=== PATIENT | male | born 1975 | race Caucasian/White ===

== ENCOUNTER 2018-04-04 20:19 | Emergency (ER) | payer BC ==
[2018-04-04] MEDS ORDERED: NA CHLORIDE 0.9% 1,000 ML ONE (21:30)
[2018-04-04 21:35] LABS: Urine Blood 3+ (NEG); Urine Glucose NEGATIVE (NEG); Urine Protein 2+ (NEG); Urine Specific Gravity >1.030 (1.005-1.030); Urine pH 5.5 (5.0-7.0)
[2018-04-04 21:51] LABS: Absolute Lymphocytes (CBC) 3.3 K/uL (0.7-4.9); Absolute Monocytes 0.8 K/uL (0.1-1.3); Absolute Neutrophil 5.5 K/uL (1.8-8.0); Basophils % 1.2 % (0-1.3); Eosinophils % 3.7 % (0-4.4); Hematocrit 40.3 % (39.6-49.0); Lymphocytes % 32.8 % (15.3-44.8); Monocytes % 8.1 % (3.3-12.3); RBC Red Blood Cell Count 4.53 M/uL (4.33-5.43)
[2018-04-04 22:10] LABS: ALT/SGPT 40 U/L (12-78); AST/SGOT 19 U/L (15-37); Albumin 3.9 g/dL (3.4-5.0); Alkaline Phosphatase 68 U/L (45-117); Amylase Level 45 U/L (25-115); BUN Blood Urea Nitrogen 16 mg/dL (7-18); Bicarbonate 28 mmol/L (21-32); Bilirubin Direct < 0.1 mg/dL (0-0.2); Bilirubin Total 0.4 mg/dL (0.2-1.0); Glucose Level 125 mg/dL (74-106); Lipase 159 U/L (73-393); Potassium 3.6 mmol/L (3.5-5.1); Protein, Total 7.7 g/dL (6.4-8.2); Sodium Level 143 mmol/L (136-145)
[2018-04-04 22:13] LABS: Urine Bacteria <20 /HPF (NONE SEEN); Urine RBC >50 /HPF (NONE SEEN)
[2018-04-04 22:14] LABS: Urine Culture Reflex Order NOT NEEDED; Urine Mucus 1+ /HPF (NONE SEEN)
--- NOTE | 2018-04-05 01:24 | ER ---
Nurse's Notes [facility] Name: Xiomara Haro Age: 43 yrs Sex: Male : 1975 Arrival Date: 04/04/2018 Time: 20:20 Bed 15 Private MD: Diagnosis: Calculus of ureter-Right;Right Inguinal Swelling Presentation: 04/04 20:27 Presenting complaint: Patient states: Reports dark, foul smelling urine, left lower aj1 back pain that radiated to the abdomen for the past week. States that he has a history of kidney stones, but this pain feels different. Denies fever. Transition of care: patient was not received from another setting of care. Onset of symptoms was March 28, 2018. Risk Assessment: Do you want to hurt yourself or someone else? Patient reports no desire to harm self or others. Initial Sepsis Screen: Does the patient meet any 2 criteria? Systolic BP < 90 mmHg. No. Patient's initial sepsis screen is negative. Does the patient have a suspected source of infection? No. Patient's initial sepsis screen is negative. Care prior to arrival: None. 20:27 Method Of Arrival: Ambulatory aj1 20:27 Acuity: DULCE 3 aj1 Triage Assessment: 20:31 General: Appears in no apparent distress. comfortable, Behavior is calm, cooperative, aj1 appropriate for age. Pain: Complains of pain in left low back Pain radiates to left lower quadrant Pain currently is 5 out of 10 on a pain scale. at worst was 9 out of 10 on a pain scale. Neuro: Level of Consciousness is awake, alert, obeys commands. Cardiovascular: Patient's skin is warm and dry. Respiratory: Airway is patent Respiratory effort is even, unlabored, Respiratory pattern is regular, symmetrical. GI: Abdomen is non-distended, Patient currently denies diarrhea, nausea, vomiting. : Reports dark, foul smelling urine Denies burning with urination, urinary frequency. Derm: Skin is pink, warm \\T\\ dry. normal. Musculoskeletal: Circulation, motion, and sensation intact. Historical: - Allergies: 20:31 Codeine; aj1 - Home Meds: 20:31 aspirin 81 mg Oral chew 1 tab once daily [Active]; famotidine 20 mg Oral tab 1 tab once aj1 daily [Active]; losartan 25 mg Oral tab 1 tab once daily [Active]; rosuvastatin 20 mg oral tab 1 tab once daily [Active]; - PMHx: 20:31 "abdominal issues"; CAD; GERD; Myocardial infarction; Sepsis; systolic heart failure; aj1 Vertigo; - PSHx: 20:31 Hernia repair; heart cath; aj1 - Immunization history:: Flu vaccine is not up to date. - Social history:: Smoking status: Patient/guardian denies using tobacco. - Ebola Screening: : Patient denies travel to an Ebola-affected area in the 21 days before illness onset. Screenin:47 Abuse screen: Denies threats or abuse. Denies injuries from another. Nutritional bs1 screening: No deficits noted. Tuberculosis screening: No symptoms or risk factors identified. Fall Risk None identified. Assessment: 21:40 General: Appears in no apparent distress. uncomfortable, Behavior is calm, cooperative, bs1 appropriate for age. 21:41 Pain: Complains of pain in right lower back, right flank/right lower abdomen Pain does bs1 not radiate. Neuro: Level of Consciousness is awake, alert, obeys commands, Oriented to person, place, time, situation, Appropriate for age. Cardiovascular: Denies chest pain, shortness of breath, Heart tones S1 S2 present Capillary refill < 3 seconds Patient's skin is warm and dry. Respiratory: Airway is patent Trachea midline Respiratory effort is even, unlabored, Respiratory pattern is regular, symmetrical, Breath sounds are clear bilaterally. GI: Abdomen is round Bowel sounds present X 4 quads. Reports lower abdominal pain. : Reports foul smelling urine. EENT: No signs and/or symptoms were reported regarding the EENT system. Derm: Skin is intact, Skin is pink, warm \\T\\ dry. normal. Musculoskeletal: Circulation, motion, and sensation intact. Capillary refill < 3 seconds, Range of motion: intact in all extremities. 23:00 Reassessment: No changes from previously documented assessment. Patient and/or family bs1 updated on plan of care and expected duration. Pain level reassessed. Patient is alert, oriented x 3, equal unlabored respirations, skin warm/dry/pink. Informed patient of POC/pending CT scan. 04/05 00:00 Reassessment: Patient appears in no apparent distress at this time. Patient and/or bs1 family updated on plan of care and expected duration. Pain level reassessed. Patient is alert, oriented x 3, equal unlabored respirations, skin warm/dry/pink. 01:15 Reassessment: Patient staying to finish IV magnesium. bs1 02:45 Reassessment: Patient appears in no apparent distress at this time. Patient and/or bs1 family updated on plan of care and expected duration. Pain level reassessed. Patient is alert, oriented x 3, equal unlabored respirations, skin warm/dry/pink. Patient denies pain at this time. Patient states feeling better. Vital Signs: 04/04 20:31 BP 119 / 85; Pulse 98; Resp 18; Temp 98.0; Pulse Ox 98% on R/A; Weight 84.37 kg (R); aj1 Height 5 ft. 10 in. (177.80 cm) (R); Pain 5/10; 21:30 BP 121 / 88; Pulse 86; Resp 16 S; Pulse Ox 97% on R/A; bs1 22:30 BP 127 / 87; Pulse 80; Resp 16 S; Pulse Ox 99% on R/A; bs1 23:30 BP 133 / 92; Pulse 77; Resp 15 S; Pulse Ox 100% on R/A; bs1 04/05 00:30 BP 120 / 85; Pulse 70; Resp 16 S; Pulse Ox 98% on R/A; bs1 01:30 BP 127 / 94; Pulse 69; Resp 17; Pulse Ox 99% on R/A; bs1 02:30 BP 125 / 97; Pulse 76; Resp 16; Temp 98(O); Pulse Ox 99% ; Pain 0/10; bs1 04/04 20:31 Body Mass Index 26.69 (84.37 kg, 177.80 cm) aj1 ED Course: 04/04 20:20 Patient arrived in ED. es 20:29 Triage completed. aj1 20:31 Arm band placed on Patient placed in an exam room. aj1 20:54 Naseem Stark PA is PHCP. cp 20:54 Naseem Xie MD is Attending Physician. cp 21:14 Sandy Mcbride, BITA is Primary Nurse. bs1 21:47 Patient has correct armband on for positive identification. Bed in low position. Call bs1 light in reach. Side rails up X 1. Pulse ox on. NIBP on. 23:31 CT Abd/Pelvis - W/Contrast In Process Unspecified. EDNY 04/05 00:11 CT completed. Patient tolerated procedure well. Patient moved to CT via wheelchair. Patient moved back from CT. 01:20 Dell Ricketts MD is Referral Physician. cp 01:21 David Vickers MD is Referral Physician. cp 01:21 Referral Physician role handed off by Dell Ricketts MD cp 01:21 Dell Ricketts MD is Referral Physician. cp 01:22 Referral Physician role handed off by David Vickers MD cp 01:22 David Vickers MD is Referral Physician. cp 02:46 No provider procedures requiring assistance completed. IV discontinued, bleeding bs1 controlled, No redness/swelling at site. Pressure dressing applied. Administered Medications: 04/04 21:40 Drug: NS 0.9% 1000 ml Route: IV; Rate: 1 bolus; Site: right antecubital; bs1 04/05 02:49 Follow up: IV Status: Completed infusion bs1 01:36 Drug: Flomax 0.4 mg Route: PO; bs1 02:49 Follow up: Response: No adverse reaction bs1 01:36 Drug: TORadol 30 mg Route: IVP; Site: right antecubital; bs1 02:49 Follow up: Response: No adverse reaction bs1 01:36 Drug: Rocephin 1 grams Route: IV; Rate: bolus; Site: right antecubital; bs1 02:48 Follow up: IV Status: Completed infusion bs1 01:37 Drug: Magnesium Sulfate 1 grams Route: IVPB; Infused Over: 1 hrs; Site: right bs1 antecubital; 02:49 Follow up: IV Status: Completed infusion bs1 Outcome: 01:23 Discharge ordered by . cp 02:47 Discharged to home ambulatory, with significant other. bs1 02:47 Condition: stable 02:47 Discharge instructions given to patient, Instructed on discharge instructions, follow up and referral plans. medication usage, Demonstrated understanding of instructions, follow-up care, medications, Prescriptions given X 4. 02:52 Patient left the ED. bs1 Signatures: Dispatcher [employer] EDAle Connell RN RN aj1 Jessy Donato Ervin eh Page, Corey, PA PA Sandy Gonzales RN RN bs1 Corrections: (The following items were deleted from the chart) 04/04 21:47 21:40 General: Appears bs1 bs1
--- NOTE | 2018-04-05 01:24 | EDPHYS ---
Physician Documentation [facility] Name: Xiomara Haro Age: 43 yrs Sex: Male : 1975 Arrival Date: 04/04/2018 Time: 20:20 Bed 15 Private MD: ED Physician Naseem Xie HPI: 04/04 21:29 This 43 yrs old Male presents to ER via Ambulatory with complaints of cp POSSIBLE KIDNEY INFECTGION. 21:29 The patient presents with pain that is acute, with no known mechanism of injury. The cp symptoms are located in the low back, left worse than right. 21:29 Onset: The symptoms/episode began/occurred 1 week(s) ago. The pain radiates to the cp abdomen. Associated signs and symptoms: Pertinent positives: right inguinal swelling, Pertinent negatives: chest pain, fever, headache, incontinence, numbness, tingling, urinary retention, weakness. Severity of symptoms: in the emergency department the symptoms are unchanged, despite home interventions. 21:29 Patient reports history of hernia repair and has noticed increased swelling to right cp inguinal area recently. Historical: - Allergies: 20:31 Codeine; aj1 - Home Meds: 20:31 aspirin 81 mg Oral chew 1 tab once daily [Active]; famotidine 20 mg Oral tab 1 tab once aj1 daily [Active]; losartan 25 mg Oral tab 1 tab once daily [Active]; rosuvastatin 20 mg oral tab 1 tab once daily [Active]; - PMHx: 20:31 "abdominal issues"; CAD; GERD; Myocardial infarction; Sepsis; systolic heart failure; aj1 Vertigo; - PSHx: 20:31 Hernia repair; heart cath; aj1 - Immunization history:: Flu vaccine is not up to date. - Social history:: Smoking status: Patient/guardian denies using tobacco. - Ebola Screening: : Patient denies travel to an Ebola-affected area in the 21 days before illness onset. ROS: 21:29 Constitutional: Negative for body aches, chills, fever, poor PO intake. cp 21:29 Respiratory: Negative for cough, shortness of breath, wheezing. 21:29 Abdomen/GI: Positive for abdominal pain, of the right inguinal, swelling, tenderness, Negative for vomiting, diarrhea, constipation, anorexia. 21:29 : Positive for flank pain. 21:29 Skin: Negative for cellulitis, rash. 21:29 All other systems are negative. Exam: 21:30 Constitutional: The patient appears in no acute distress, alert, awake, non-toxic, well cp developed, well nourished. 21:30 Head/Face: Normocephalic, atraumatic. cp 21:30 Eyes: Periorbital structures: appear normal, Conjunctiva: normal, no exudate, no injection, Sclera: no appreciated abnormality, Lids and lashes: appear normal, bilaterally. 21:30 ENT: External ear(s): are unremarkable, Nose: is normal, Mouth: Lips: moist, Oral mucosa: pink and intact, moist, Posterior pharynx: is normal, airway is patent, no erythema, no exudate. 21:30 Chest/axilla: Inspection: normal, Palpation: is normal, no crepitus, no tenderness. 21:30 Cardiovascular: Rate: normal, Rhythm: regular, Edema: is not appreciated, JVD: is not appreciated. 21:30 Respiratory: the patient does not display signs of respiratory distress, Respirations: normal, no use of accessory muscles, no retractions, no splinting, no tachypnea, labored breathing, is not present, Breath sounds: are clear throughout, no decreased breath sounds, no stridor, no wheezing. 21:30 Abdomen/GI: Inspection: abdomen appears normal, Bowel sounds: active, all quadrants, Palpation: soft, in all quadrants, mild abdominal tenderness, in the right lower quadrant and left lower quadrant, involuntary guarding, is not appreciated, right inguinal area swelling and mild tenderness. 21:30 Back: ROM is normal, CVA tenderness, that is mild, vertebral tenderness, is not appreciated. 21:30 Skin: cellulitis, is not appreciated, no rash present. 21:30 Neuro: Orientation: to person, place \\T\\ time. Mentation: lucid, able to follow commands, Cerebellar function: is grossly normal, Motor: moves all fours, strength is normal, Sensation: no obvious gross deficits, Gait: is steady. Vital Signs: 20:31 BP 119 / 85; Pulse 98; Resp 18; Temp 98.0; Pulse Ox 98% on R/A; Weight 84.37 kg (R); aj1 Height 5 ft. 10 in. (177.80 cm) (R); Pain 5/10; 21:30 BP 121 / 88; Pulse 86; Resp 16 S; Pulse Ox 97% on R/A; bs1 22:30 BP 127 / 87; Pulse 80; Resp 16 S; Pulse Ox 99% on R/A; bs1 23:30 BP 133 / 92; Pulse 77; Resp 15 S; Pulse Ox 100% on R/A; bs1 04/05 00:30 BP 120 / 85; Pulse 70; Resp 16 S; Pulse Ox 98% on R/A; bs1 01:30 BP 127 / 94; Pulse 69; Resp 17; Pulse Ox 99% on R/A; bs1 02:30 BP 125 / 97; Pulse 76; Resp 16; Temp 98(O); Pulse Ox 99% ; Pain 0/10; bs1 04/04 20:31 Body Mass Index 26.69 (84.37 kg, 177.80 cm) aj1 MDM: 04/04 20:55 Patient medically screened. cp 23:00 Differential diagnosis: Cholelithiasis chronic back pain, Pyelonephritis ruptured disc, cp Ureterolithiasis. 04/05 01:22 Data reviewed: vital signs, nurses notes, lab test result(s), radiologic studies, CT cp scan. 01:22 Counseling: I had a detailed discussion with the patient and/or guardian regarding: the cp historical points, exam findings, and any diagnostic results supporting the discharge/admit diagnosis, lab results, radiology results, to return to the emergency department if symptoms worsen or persist or if there are any questions or concerns that arise at home. Response to treatment: the patient's symptoms have markedly improved after treatment, and as a result, I will discharge patient. 04/04 21:15 Order name: Amylase, Serum; Complete Time: 22:33 cp 04/04 21:15 Order name: Basic Metabolic Panel; Complete Time: 22:33 cp 04/04 22:33 Interpretation: Normal except: GLUC 125; GFR 72. cp 04/04 21:15 Order name: CBC with Diff; Complete Time: 22:33 cp 04/04 21:15 Order name: Creatinine for Radiology; Complete Time: 22:33 cp 04/04 21:15 Order name: Hepatic Function; Complete Time: 22:33 cp 04/04 21:15 Order name: Lipase; Complete Time: 22:33 cp 04/04 21:15 Order name: Urine Microscopic Only; Complete Time: 22:33 cp 04/04 21:15 Order name: CT Abd/Pelvis - W/Contrast; Complete Time: 02:02 cp 04/04 21:26 Order name: Urine Dipstick--Ancillary (enter results); Complete Time: 22:33 rg2 04/04 21:15 Order name: IV Saline Lock; Complete Time: 21:40 cp 04/04 21:15 Order name: Labs collected and sent; Complete Time: 21:40 cp 04/04 21:15 Order name: Urine Dipstick-Ancillary (obtain specimen); Complete Time: 21:40 cp Administered Medications: 04/04 21:40 Drug: NS 0.9% 1000 ml Route: IV; Rate: 1 bolus; Site: right antecubital; bs1 04/05 02:49 Follow up: IV Status: Completed infusion bs1 01:36 Drug: Flomax 0.4 mg Route: PO; bs1 02:49 Follow up: Response: No adverse reaction bs1 01:36 Drug: TORadol 30 mg Route: IVP; Site: right antecubital; bs1 02:49 Follow up: Response: No adverse reaction bs1 01:36 Drug: Rocephin 1 grams Route: IV; Rate: bolus; Site: right antecubital; bs1 02:48 Follow up: IV Status: Completed infusion bs1 01:37 Drug: Magnesium Sulfate 1 grams Route: IVPB; Infused Over: 1 hrs; Site: right bs1 antecubital; 02:49 Follow up: IV Status: Completed infusion bs1 Disposition: 03:00 Chart complete. cp 06:53 Co-signature as Attending Physician, Naseem Xie MD I agree with the assessment and josh plan of care. Disposition: 04/05/18 01:23 Discharged to Home. Impression: Calculus of ureter - Right, Right Inguinal Swelling. - Condition is Stable. - Discharge Instructions: Kidney Stones, Renal Colic. - Prescriptions for Zofran 4 mg Oral Tablet - take 1 tablet by ORAL route every 12 hours As needed; 20 tablet. Flomax 0.4 mg Oral Capsule, Sust. Release 24 hr - take 1 capsule by ORAL route once daily As needed 1/2 hour following the same meal each day; 7 capsule. Tramadol 50 mg Oral Tablet - take 1 tablet by ORAL route every 8 hours as needed; 20 tablet. Cipro 500 mg Oral Tablet - take 1 tablet by ORAL route every 12 hours for 7 days; 14 tablet. - Medication Reconciliation Form, Thank You Letter, Antibiotic Education, Prescription Opioid Use, Work release form form. - Follow up: Dell Ricketts MD; When: Today; Reason: Recheck today's complaints. Follow up: David Vickers MD; When: 1 - 2 days; Reason: right groin swelling. Follow up: Dell Ricketts MD; When: Today; Reason: right ureter calculus. Follow up: David Vickers MD; When: 1 - 2 days; Reason: Right Inguinal Swelling. - Problem is new. - Symptoms have improved. Signatures: Dispatcher [employer] EDAle Connell RN RN aj1 Naseem Xie MD MD cha Page, Corey, PA PA cp Salazar, Brittany RN RN bs1 Corrections: (The following items were deleted from the chart) 02:52 01:23 04/05/2018 01:23 Discharged to Home. Impression: Calculus of ureter - Right; bs1 Right Inguinal Swelling. Condition is Stable. Forms are Medication Reconciliation Form, Thank You Letter, Antibiotic Education, Prescription Opioid Use. Follow up: Dell Ricketts; When: Today; Reason: right ureter calculus. Follow up: David Vickers; When: 1 - 2 days; Reason: Right Inguinal Swelling. Problem is new. Symptoms have improved. cp
[2018-04-05] MEDS ORDERED: TAMSULOSIN 0.4 MG SR CAP ONE (01:31)
[2018-04-05] MEDS ORDERED: Magnesium Sulfate 1gm IVPB 1 GM/50 ML BAG IV ONE (01:32)
[2018-04-05] MEDS ORDERED: KETOROLAC 30 MG/ML INJ ONE (01:32)
[2018-04-05] MEDS ORDERED: CEFTRIAXONE/SWI 1gm 1 GM/10 ML SYR ONE (01:33)
[2018-04-05 03:04] VITALS: O2SAT 99
[2018-04-05 03:06] VITALS: BP 125/97; TEMP 98
--- NOTE | 2018-04-05 09:05 | RAD REPORT ---
EXAM DESCRIPTION: CTAbdomen Pelvis W Contrast - 04/05/2018 5:20 am CLINICAL HISTORY: Abdominal pain. right side abdomen pain COMPARISON: 08/30/2017 TECHNIQUE: Biphasic CT imaging of the abdomen and pelvis was performed with 100 ml non-ionic IV cont rast. All CT scans are performed using dose optimization technique as appropriate and may include automated exposure control or mA/KV adjustment according to patient size. FINDINGS: The lung bases are clear. The liver, spleen, pancreas, right adrenal gland and left kidney are within normal limits. 17 mm left adrenal adenoma is noted, unchanged. 4 mm calculus is present in the proximal right ureter resulting in mild right hydronephrosis. Additional punctate right nephrolithiasis. No bowel obstruction, free air, free fluid or abscess. Prominent sigmoid diverticulosis coli without diverticulitis. The appendix is normal. Moderate to large fat containing right inguinal hernia with s mall amount of fluid in the right inguinal canal on today's study. No evidence of significant lymphad enopathy. No suspicious bony findings. IMPRESSION: 4 mm calculus proximal right ureter with mild right hydronephrosis. Additional punctate right nephrolithiasis. Large fat containing right inguinal hernia with a small amount of fluid present in the right inguinal canal.
== END 2018-04-05 02:52 | disposition home or self-care (01) ==
LOC: ER 20:19
DX: N20.1 Calculus of ureter (principal); I50.20 Unspecified systolic (congestive) heart failure; Z88.6 Allergy status to analgesic agent
CPT/HCPCS: 36415; 74177; 80048; 80076; 81003; 81015; 82150; 83690; 85025; 96361; 96365; 96368; 96375; 99284; J0696; J3475; J7030; Q9967

== ENCOUNTER 2018-06-14 08:07 | Day surgery (SDC) | payer BC ==
[2018-06-14] MEDS ORDERED: Ringers Lactate 1,000 ML IV ONE (08:32)
[2018-06-14] MEDS ORDERED: CEFAZOLIN/SWI 1gm 1 GM/10 ML SYR ONE (08:32)
[2018-06-14] MEDS ORDERED: PROPOFOL 200 MG/20 ML VIAL IV ONE (09:08)
[2018-06-14] MEDS ORDERED: FENTANYL CITR 100 MCG/2 ML ONE (09:10)
[2018-06-14] MEDS ORDERED: ROCURONIUM 50 MG/5 ML VIAL IV ONE (09:10)
[2018-06-14] MEDS ORDERED: MIDAZOLAM HCL 2 MG/2 ML INJ ONE ×2 (09:10→10:53)
[2018-06-14] MEDS ORDERED: ONDANSETRON HCL 40 MG/20 ML VIAL ONE (09:13)
[2018-06-14] MEDS ORDERED: LIDOCAINE 1% MPF 2 ML AMPULE ONE (09:13)
[2018-06-14] MEDS: BUPIVACA 0.5%/EPI 0.0005%/PF 30 ML VIAL ONE ×2 (09:14→10:48)
--- NOTE | 2018-06-14 13:31 | P.OP ---
Preoperative diagnosis: Right Inguinal Hernia Postoperative diagnosis: Right Inguinal Hernia Primary procedure: Open Right Inguinal Hernia Repair with Plug Anesthesia: GETA + Local Estimated blood loss: <10cc Specimen: Hernia Sac Findings: Recurrent hernia - medial to mesh Complications: None Implants: Marlex Large Plug Transferred to: Recovery Room Condition: Good
[2018-06-14] MEDS ORDERED: GLYCOPYRROLATE 0.2 MG/ML SYR ONE (13:32)
[2018-06-14] MEDS ORDERED: KETOROLAC 30 MG/ML INJ ONE (13:34)
[2018-06-14] MEDS ORDERED: NEOSTIGMINE 1 MG/ML -5 ML SYRINGE ONE (13:35)
[2018-06-14] MEDS: MEPERIDINE HCL 50 MG/ML AMP ONE ×2 (13:49→14:02)
[2018-06-14] MEDS ORDERED: PROMETHAZINE 25 MG/ML VIAL ONE (14:17)
[2018-06-14] MEDS ORDERED: MEPERIDINE HCL 50 MG/ML AMP ONE (14:25)
[2018-06-14 14:44] VITALS: TEMP 97
[2018-06-14] MEDS ORDERED: ONDANSETRON 4 MG/2 ML VIAL ONE (14:46)
[2018-06-14 15:15] VITALS: BP 115/57; O2SAT 97
[2018-06-14] MEDS ORDERED: HYDROCODONE/APAP 7.5/325 MG TAB ONE (15:30)
--- NOTE | 2018-06-15 00:39 | OP ---
Date of Procedure: 06/14/2018 Surgeon: David Vickers MD, Preoperative Diagnosis: Recurrent right inguinal hernia. Postoperative Diagnosis: Recurrent right inguinal hernia. Procedure Performed: An open right inguinal hernia repair with plug system. Anesthesia: General endotracheal plus local with 0.5% Marcaine without epinephrine. Estimated Blood Loss: 7 cc. Specimens: Hernia sac. Findings: Recurrent hernia which occurred medial to the previously placed mesh. Complications: None. Implants: Marlex large plug. Disposition: Transferred to recovery room in good condition. Procedure In Detail: After informed consent was obtained, the patient was brought to the operating r oom, prepped and draped in the usual sterile fashion. After adequate anesthesia was achieved, an are a of the right groin was anesthetized through the previous incision and a 10-blade scalp was used to dissect through the subcutaneous tissues. Electrocautery was used to dissect down through Camper's f at and Sherrill's fascia. There was no visible external oblique aponeurosis as it was obliterated from the prior. I dissected down to expose the spermatic cord and structures near the pubic tubercle. I encircled these and dissected the spermatic cord and structures free from the previously placed onla y mesh system. The keyhole-type Jason mesh was identified and dissected free from the spermat ic cord structures. The deep ring was found to be intact. There was a medial defect; at which point , the hernia was noted to be emanating from the medial aspect under the mesh and coming up medially t hrough a space between the mesh and the medial shelving edge. This was mobilized off the previous pa tch system and the patch was found to be in good anatomic position; however, it was evident that this was the area of the defect on the medial aspect. As such, the hernia sac was opened. The preperito dmitry fat and contents were returned to the preperitoneal space and the area was dissected to allow fo r placement of a large Marlex plug. The tissues were circumferentially cleared. The plug was a larg e Marlex piece, which was hydrated, secured circumferentially at 3.60-degree angles around the hernia defect and the plug system was placed through this with good approximation of tissues. The 0 PDS pisano ture was then used to secure this and plug in a good position and the hernia sac was dissected free a nd sent off for pathologic examination. The residual hernia sac was then used to close over the top of the previous placed repair and the previously placed patch was laid over the top of this too secur ing it at the medial position with a 0 PDS and back at the pubic tubercle as well on the lateral thomas ving edge. The area was copiously irrigated multiple times until completely dry. The spermatic cord was placed in the normal anatomic position. The area was copiously irrigated multiple times and the Camper's fat, Sherrill's fascia, and fascial planes were closed en bloc with a running 3-0 Vicryl sutu re. The subcutaneous layer was then closed in an interrupted fashion with 3-0 interrupted Vicryl sut ures and the skin was closed with a 4-0 Monocryl in running fashion. Dermabond was placed over the t op. The patient tolerated the procedure well without evidence of complication and transferred to PAC U in good condition. All counts were correct at the end of the case. BRIONNA/ZION Voice ID: [id number] Report ID: [id number]
== END 2018-06-14 16:10 | disposition home or self-care (01) ==
LOC: OR 08:07
PROVIDERS: ATTEND Surgery
PROC: 0YU50JZ Supplement Right Inguinal Region with Synthetic Substitute, Open Approach (ICD-10-PCS; principal; 2018-06-14 09:30)
DX: K40.91 Unilateral inguinal hernia, without obstruction or gangrene, recurrent (principal); K21.9 Gastro-esophageal reflux disease without esophagitis; I25.2 Old myocardial infarction; Z79.82 Long term (current) use of aspirin; Z88.6 Allergy status to analgesic agent; Z80.0 Family history of malignant neoplasm of digestive organs; Z83.3 Family history of diabetes mellitus; I25.10 Atherosclerotic heart disease of native coronary artery without angina pectoris
CPT/HCPCS: 88302; J0690; J2001; J2175; J2250; J2405; J2550; J2710; J3010

== ENCOUNTER 2018-07-13 15:07 | Emergency (ER) | payer BC ==
[2018-07-13 16:27] LABS: Absolute Lymphocytes (CBC) 3.6 K/uL (0.7-4.9); Absolute Monocytes 0.8 K/uL (0.1-1.3); Absolute Neutrophil 4.7 K/uL (1.8-8.0); Basophils % 1.5 % (0-1.3); Eosinophils % 2.9 % (0-4.4); Hematocrit 43.9 % (39.6-49.0); Lymphocytes % 38.1 % (15.3-44.8); MCH 30.4 pg (27.0-35.0); MCV 88.4 fL (80-100); Monocytes % 8.4 % (3.3-12.3); RBC Red Blood Cell Count 4.97 M/uL (4.33-5.43)
[2018-07-13 16:46] LABS: Albumin 4.2 g/dL (3.4-5.0); Bilirubin Direct 0.1 mg/dL (0-0.2); Bilirubin Total 0.4 mg/dL (0.2-1.0); Potassium 4.1 mmol/L (3.5-5.1); Protein, Total 8.6 g/dL (6.4-8.2)
[2018-07-13 16:58] LABS: Urine Blood NEGATIVE (NEG); Urine Glucose NEGATIVE (NEG); Urine Protein NEGATIVE (NEG); Urine pH 5.5 (5.0-7.0)
[2018-07-13 17:00] LABS: Urine Bacteria NONE SEEN /HPF (NONE SEEN); Urine Culture Reflex Order NOT NEEDED; Urine Mucus 1+ /HPF (NONE SEEN); Urine RBC NONE SEEN /HPF (NONE SEEN)
--- NOTE | 2018-07-13 18:20 | RAD REPORT ---
EXAM DESCRIPTION: CT - Abdomen Pelvis W Contrast - 07/13/2018 5:53 pm CLINICAL HISTORY: Abdominal pain/right groin pain COMPARISON: March 2018 TECHNIQUE: Computed axial tomography of the abdomen pelvis was obtained. 100 cc Isovue-300 was admin istered intravenously. Oral contrast was not requested which limits evaluation of bowel. All CT scans are performed using dose optimization technique as appropriate and may include automated exposure control or mA/KV adjustment according to patient size. FINDINGS: Fatty infiltration liver seen. Spleen, pancreas, right adrenal and right kidney appear unremarkable. Small left renal cyst is presen t. 15 millimeter left adrenal adenoma unchanged There is no evidence of diverticulitis. Appendix is normal. Postsurgical changes of a right inguinal hernia repair are seen. Small recurrent right inguinal herni a is suspected. It contains fluid. Postsurgical changes left inguinal hernia repair Prostate gland is mildly enlarged. Small umbilical hernia seen IMPRESSION: Postsurgical changes of a right inguinal hernia repair are seen. Small recurrent right i nguinal hernia is suspected. It contains fluid
--- NOTE | 2018-07-13 18:32 | EDPHYS ---
Physician Documentation [facility] Name: Xiomara Haro Age: 43 yrs Sex: Male : 1975 Arrival Date: 07/13/2018 Time: 15:10 Bed 24 Private MD: ED Physician Billy Robledo HPI: 07/13 16:10 This 43 yrs old Male presents to ER via Ambulatory with complaints of Leg cp Pain. 16:10 The patient presents with swelling, of the right inguinal area, tenderness, of the cp right inguinal area. 16:10 Onset: The symptoms/episode began/occurred gradually. Associated signs and symptoms: cp Pertinent negatives: constipation, diarrhea, dysuria, fever, vomiting. 16:10 Patient reports history of hernia repair right groin by DR Vickers on 06-14-2018. Has cp noticed increasing pain and swelling to area. Historical: - Allergies: 15:34 Codeine; aj1 - Home Meds: 15:34 aspirin 81 mg Oral chew 1 tab once daily [Active]; famotidine 20 mg Oral tab 1 tab once aj1 daily [Active]; losartan 25 mg Oral tab 1 tab once daily [Active]; rosuvastatin 20 mg Oral tab 1 tab once daily [Active]; - PMHx: 15:34 "abdominal issues"; CAD; GERD; Myocardial infarction; Sepsis; systolic heart failure; aj1 Vertigo; - PSHx: 15:34 hernia repair 06/14/18; aj1 - Immunization history:: Flu vaccine is not up to date. - Social history:: Smoking status: Patient/guardian denies using tobacco. - Ebola Screening: : Patient denies travel to an Ebola-affected area in the 21 days before illness onset. ROS: 16:20 Constitutional: Negative for body aches, chills, fever, poor PO intake. cp 16:20 Eyes: Negative for injury, pain, redness, and discharge. cp 16:20 ENT: Negative for drainage from ear(s), ear pain, sore throat, difficulty swallowing, difficulty handling secretions. 16:20 Neck: Negative for pain with movement, pain at rest, stiffness, tenderness, bony tenderness. 16:20 Cardiovascular: Negative for chest pain, edema, palpitations. 16:20 Respiratory: Negative for cough, shortness of breath, wheezing. 16:20 Abdomen/GI: Negative for abdominal pain, vomiting, diarrhea, constipation, anorexia, black/tarry stool, rectal bleeding. 16:20 Back: Negative for pain at rest, pain with movement, radiated pain. 16:20 : Positive for right groin pain, Negative for urinary symptoms, testicular pain 16:20 Skin: Negative for cellulitis, rash. 16:20 Neuro: Negative for altered mental status, headache, weakness. 16:20 All other systems are negative. Exam: 16:25 Constitutional: The patient appears in no acute distress, alert, awake, cp non-diaphoretic, non-toxic, well developed, well nourished. 16:25 Head/Face: Normocephalic, atraumatic. cp 16:25 Eyes: Periorbital structures: appear normal, Conjunctiva: normal, no exudate, no injection, Sclera: no appreciated abnormality, Lids and lashes: appear normal, bilaterally. 16:25 ENT: External ear(s): are unremarkable, Nose: is normal, Mouth: Lips: moist, Oral mucosa: pink and intact, moist, Posterior pharynx: is normal, airway is patent, no erythema, no exudate. 16:25 Neck: ROM/movement: is normal, is supple, without pain, no range of motions limitations, no nuchal rigidity. 16:25 Chest/axilla: Inspection: normal, Palpation: is normal, no crepitus, no tenderness. 16:25 Cardiovascular: Rate: normal, Rhythm: regular, Edema: is not appreciated, JVD: is not appreciated. 16:25 Respiratory: the patient does not display signs of respiratory distress, Respirations: normal, no use of accessory muscles, no retractions, no splinting, no tachypnea, labored breathing, is not present, Breath sounds: are clear throughout, no decreased breath sounds, no stridor, no wheezing. 16:25 Abdomen/GI: Inspection: abdomen appears normal, Bowel sounds: active, all quadrants, Palpation: abdomen is soft and non-tender, in all quadrants, rebound tenderness, is not appreciated, voluntary guarding, is not appreciated, involuntary guarding, is not appreciated. 16:25 Back: pain, is absent, ROM is normal. 16:25 : Male external genitalia: normal, right groin with surgical scar that appears w/o erythema or drainage, noted swelling around incision. 16:25 Skin: cellulitis, is not appreciated, no rash present. Vital Signs: 15:34 BP 131 / 92; Pulse 86; Resp 18; Temp 97.0; Pulse Ox 100% on R/A; Weight 85.73 kg (R); aj1 Height 5 ft. 10 in. (177.80 cm) (R); Pain 7/10; 16:24 BP 120 / 88; Pulse 81; Resp 17; Pulse Ox 96% on R/A; tw2 17:20 BP 116 / 87; Pulse 74; Resp 17; Pulse Ox 98% on R/A; tw2 18:30 BP 112 / 89; Pulse 73; Resp 17; Pulse Ox 100% on R/A; tw2 15:34 Body Mass Index 27.12 (85.73 kg, 177.80 cm) aj1 MDM: 15:37 Patient medically screened. cp 16:30 Differential diagnosis: nonspecific abdominal pain, post-op pain, seroma, abscess, cp cellulitis. 18:30 Data reviewed: vital signs, nurses notes, lab test result(s), radiologic studies, CT cp scan. 18:30 Counseling: I had a detailed discussion with the patient and/or guardian regarding: the cp historical points, exam findings, and any diagnostic results supporting the discharge/admit diagnosis, lab results, radiology results, the need for outpatient follow up, a general surgeon, to return to the emergency department if symptoms worsen or persist or if there are any questions or concerns that arise at home. 07/13 16:07 Order name: Basic Metabolic Panel; Complete Time: 17:11 07/13 17:11 Interpretation: Normal except: BUN 24; GFR 72. 07/13 16:07 Order name: CBC with Diff; Complete Time: 17:11 07/13 16:07 Order name: Creatinine for Radiology; Complete Time: 17:11 07/13 16:07 Order name: Hepatic Function; Complete Time: 17:11 07/13 16:07 Order name: Lipase; Complete Time: 17:11 07/13 16:07 Order name: Urine Microscopic Only; Complete Time: 17:11 07/13 16:07 Order name: IV Saline Lock; Complete Time: 16:24 07/13 16:07 Order name: Labs collected and sent; Complete Time: 16:24 07/13 16:07 Order name: Urine Dipstick-Ancillary (obtain specimen); Complete Time: 16:24 cp 07/13 16:28 Order name: Urine Dipstick--Ancillary (enter results); Complete Time: 17:11 eb 07/13 17:39 Order name: CT Abd/Pelvis - W/Contrast: no oral contrast; Complete Time: 18:28 cp Administered Medications: No medications were administered Disposition: 18:45 Co-signature as Attending Physician, Billy Robledo MD. rn Disposition: 07/13/18 18:31 Discharged to Home. Impression: Seroma of right groin. - Condition is Stable. - Discharge Instructions: Seroma. - Prescriptions for Clindamycin HCl 300 mg Oral Capsule - take 1 capsule by ORAL route every 6 hours for 10 days; 40 capsule. - Medication Reconciliation Form, Thank You Letter, Antibiotic Education, Prescription Opioid Use, Work release form, Family Work Release form. - Follow up: David Vickers MD; When: next week in clinic; Reason: Recheck today's complaints. - Problem is new. - Symptoms have improved. Signatures: Dispatcher [employer] EDAle Connell RN RN aj1 Billy Robledo MD MD rn Naseem Stark PA PA cp Gypsy Charles RN RN tw2 Corrections: (The following items were deleted from the chart) 18:39 18:31 07/13/2018 18:31 Discharged to Home. Impression: Seroma of right groin. Condition tw2 is Stable. Forms are Work release form, Family Work Release, Medication Reconciliation Form, Thank You Letter, Antibiotic Education, Prescription Opioid Use. Follow up: David Vickers; When: next week in clinic; Reason: Recheck today's complaints. Problem is new. Symptoms have improved. cp
--- NOTE | 2018-07-13 18:32 | ER ---
Nurse's Notes [facility] Name: Xiomara Haro Age: 43 yrs Sex: Male : 1975 Arrival Date: 07/13/2018 Time: 15:10 Bed 24 Private MD: Diagnosis: Seroma of right groin Presentation: 07/13 15:29 Presenting complaint: Patient states: "I had hernia surgery on the 14 of June, it aj1 was a re-do because the first one failed, and I think that's happening again, because it's burning, and it feels like something is rubbing on the inside." Reports pain to right groin that radiates down right leg. States that he called the Dr. Vickers's office and was directed to come to the ER if his pain got any worse. Transition of care: patient was not received from another setting of care. Onset of symptoms was July 01, 2018. Risk Assessment: Do you want to hurt yourself or someone else? Patient reports no desire to harm self or others. Initial Sepsis Screen: Does the patient meet any 2 criteria? No. Patient's initial sepsis screen is negative. Does the patient have a suspected source of infection? No. Patient's initial sepsis screen is negative. Care prior to arrival: None. 15:29 Method Of Arrival: Ambulatory aj1 15:29 Acuity: DULCE 3 aj1 Triage Assessment: 15:34 General: Appears in no apparent distress. uncomfortable, Behavior is calm, cooperative, aj1 appropriate for age. Pain: Complains of pain in right femoral area and right inguinal area Pain currently is 7 out of 10 on a pain scale. at worst was 10 out of 10 on a pain scale. Neuro: Level of Consciousness is awake, alert, obeys commands. Cardiovascular: Patient's skin is warm and dry. Respiratory: Airway is patent Respiratory effort is even, unlabored, Respiratory pattern is regular, symmetrical. Historical: - Allergies: 15:34 Codeine; aj1 - Home Meds: 15:34 aspirin 81 mg Oral chew 1 tab once daily [Active]; famotidine 20 mg Oral tab 1 tab once aj1 daily [Active]; losartan 25 mg Oral tab 1 tab once daily [Active]; rosuvastatin 20 mg Oral tab 1 tab once daily [Active]; - PMHx: 15:34 "abdominal issues"; CAD; GERD; Myocardial infarction; Sepsis; systolic heart failure; aj1 Vertigo; - PSHx: 15:34 hernia repair 06/14/18; aj1 - Immunization history:: Flu vaccine is not up to date. - Social history:: Smoking status: Patient/guardian denies using tobacco. - Ebola Screening: : Patient denies travel to an Ebola-affected area in the 21 days before illness onset. Screenin:38 Abuse screen: Denies threats or abuse. Nutritional screening: No deficits noted. tw2 Tuberculosis screening: No symptoms or risk factors identified. Fall Risk None identified. Assessment: 16:00 General: Appears in no apparent distress. Behavior is calm, cooperative, appropriate tw2 for age. Pain: Complains of pain in right inguinal area and right femoral area. Neuro: Level of Consciousness is awake, alert, obeys commands, Oriented to person, place, time, situation. Cardiovascular: Denies chest pain, shortness of breath, Heart tones S1 S2 Capillary refill < 3 seconds Patient's skin is warm and dry. Respiratory: Airway is patent Respiratory effort is even, unlabored, Respiratory pattern is regular, symmetrical, Breath sounds are clear bilaterally. GI: No signs and/or symptoms were reported involving the gastrointestinal system. : Reports pain in right femoral area,had previous hernia surgery there. EENT: No signs and/or symptoms were reported regarding the EENT system. Derm: No signs and/or symptoms reported regarding the dermatologic system. Musculoskeletal: Range of motion: intact in all extremities. 17:20 Reassessment: Patient appears in no apparent distress at this time. No changes from tw2 previously documented assessment. Patient and/or family updated on plan of care and expected duration. Pain level reassessed. Patient is alert, oriented x 3, equal unlabored respirations, skin warm/dry/pink. 18:31 Reassessment: Patient appears in no apparent distress at this time. No changes from tw2 previously documented assessment. Patient and/or family updated on plan of care and expected duration. Pain level reassessed. Patient is alert, oriented x 3, equal unlabored respirations, skin warm/dry/pink. Vital Signs: 15:34 BP 131 / 92; Pulse 86; Resp 18; Temp 97.0; Pulse Ox 100% on R/A; Weight 85.73 kg (R); aj1 Height 5 ft. 10 in. (177.80 cm) (R); Pain 7/10; 16:24 BP 120 / 88; Pulse 81; Resp 17; Pulse Ox 96% on R/A; tw2 17:20 BP 116 / 87; Pulse 74; Resp 17; Pulse Ox 98% on R/A; tw2 18:30 BP 112 / 89; Pulse 73; Resp 17; Pulse Ox 100% on R/A; tw2 15:34 Body Mass Index 27.12 (85.73 kg, 177.80 cm) aj1 ED Course: 15:10 Patient arrived in ED. as 15:33 Triage completed. aj1 15:34 Arm band placed on Patient placed in an exam room. aj1 15:36 Naseem Stark PA is PHCP. cp 15:36 Billy Robledo MD is Attending Physician. cp 15:38 Gypsy Charles, BITA is Primary Nurse. tw2 15:38 Placed in gown. Bed in low position. Pulse ox on. NIBP on. tw2 16:15 Inserted saline lock: 20 gauge in right antecubital area, using aseptic technique. tw2 Blood collected. 17:[address] 17:54 CT Abd/Pelvis - W/Contrast: no oral contrast In Process Unspecified. EDMS 18:30 David Vickers MD is Referral Physician. cp 18:38 No provider procedures requiring assistance completed. IV discontinued, intact, tw2 bleeding controlled, No redness/swelling at site. Pressure dressing applied. Administered Medications: No medications were administered Outcome: 18:31 Discharge ordered by . cp 18:38 Discharged to home ambulatory, with significant other. tw2 18:38 Condition: stable 18:38 Discharge instructions given to patient, significant other, Instructed on discharge instructions, follow up and referral plans. medication usage, Demonstrated understanding of instructions, follow-up care, medications, Prescriptions given X 1. 18:39 Patient left the ED. tw2 Signatures: Dispatcher [employer] EDMS Ale Gamez, RN RN aj1 Mildred Houston Amelia as Naseem Stark PA PA cp Gypsy Charles, RN RN tw2
[2018-07-13 18:47] VITALS: TEMP 97
[2018-07-13 18:51] VITALS: BP 112/89; O2SAT 100
== END 2018-07-13 18:39 | disposition home or self-care (01) ==
LOC: ER 15:07
DX: L76.34 Postprocedural seroma of skin and subcutaneous tissue following other procedure (principal); I25.10 Atherosclerotic heart disease of native coronary artery without angina pectoris; I25.2 Old myocardial infarction; Z79.82 Long term (current) use of aspirin; Z88.5 Allergy status to narcotic agent
CPT/HCPCS: 36415; 74177; 80048; 80076; 81003; 81015; 83690; 85025; 99284; Q9967

== ENCOUNTER 2018-12-17 12:27 | Emergency (ER) | payer BC ==
--- NOTE | 2018-12-17 13:08 | ER ---
Nurse's Notes [facility] Name: Xiomara Haro Age: 43 yrs Sex: Male : 1975 Arrival Date: 12/17/2018 Time: 12:29 Bed 15 Private MD: Hanh Hull Diagnosis: Inguinal hernia-right , repaired, painful Presentation: 12/17 12:31 Presenting complaint: Patient states: R groin pain after slipping approximately 1.5 ss weeks ago. Pt has a history of hernia repair to the affected side. Transition of care: patient was not received from another setting of care. Onset of symptoms was November 2018. Risk Assessment: Do you want to hurt yourself or someone else? Patient reports no desire to harm self or others. Initial Sepsis Screen: Does the patient meet any 2 criteria? No. Patient's initial sepsis screen is negative. Does the patient have a suspected source of infection? No. Patient's initial sepsis screen is negative. Care prior to arrival: None. 12:31 Method Of Arrival: Ambulatory ss 12:31 Acuity: DULCE 4 ss Triage Assessment: 13:33 General: Appears in no apparent distress. Behavior is calm, cooperative. Pain: iw Complains of pain in right inguinal area and right femoral area. Historical: - Allergies: 12:33 No Known Allergies; ss - PMHx: 12:33 "abdominal issues"; CAD; GERD; Myocardial infarction; Sepsis; Vertigo; ss - PSHx: 12:33 Hernia repair; I\\T\\D; ss - Immunization history:: Adult Immunizations unknown. - Social history:: Smoking status: Patient/guardian denies using tobacco, Smoking status: Patient/guardian denies using tobacco. - Ebola Screening: : Patient denies exposure to infectious person Patient denies travel to an Ebola-affected area in the 21 days before illness onset. - Family history:: not pertinent. Screenin:33 Abuse screen: Denies threats or abuse. Denies injuries from another. Nutritional iw screening: No deficits noted. Tuberculosis screening: No symptoms or risk factors identified. Fall Risk None identified. Vital Signs: 12:33 BP 149 / 95; Pulse 87; Resp 16; Temp 98.0(TE); Pulse Ox 98% on R/A; Weight 80.74 kg; ss Height 5 ft. 10 in. (177.80 cm); Pain 9/10; 12:33 Body Mass Index 25.54 (80.74 kg, 177.80 cm) ED Course: 12:29 Patient arrived in ED. mr 12:30 Hanh Hull MD is Private Physician. mr 12:32 Triage completed. ss 12:34 Arm band placed on right wrist. ss 12:35 Patient has correct armband on for positive identification. iw 12:36 Naseem Xie MD is Attending Physician. josh 12:36 Michelle Hernández RN is Primary Nurse. jl7 13:07 David Vickers MD is Referral Physician. josh 13:33 No provider procedures requiring assistance completed. Patient did not have IV access iw during this emergency room visit. Administered Medications: 13:28 Drug: [place] 10 mg-325 mg 1 tabs Route: PO; iw 13:35 Follow up: Response: No adverse reaction iw Outcome: 13:07 Discharge ordered by MD. josh 13:33 Discharged to home ambulatory, with family. iw 13:33 Condition: good 13:33 Discharge instructions given to patient, family, Instructed on discharge instructions, follow up and referral plans. medication usage, pt has f/u appt with Dr. Vickers tomorrow Demonstrated understanding of instructions, follow-up care, medications, Prescriptions given X 2. 13:34 Patient left the ED. iw Signatures: Naseem Xie MD MD cha Rivera, Mary mr MadsenKarin, RN BITA Mayra Bolivar RN RN Michelle Hernández RN RN jl7
--- NOTE | 2018-12-17 13:08 | EDPHYS ---
Physician Documentation [facility] Name: Xiomara Haro Age: 43 yrs Sex: Male : 1975 Arrival Date: 12/17/2018 Time: 12:29 Bed 15 Private MD: Hanh Hull ED Physician Naseem Xie HPI: 12/17 12:50 This 43 yrs old Male presents to ER via Ambulatory with complaints of Groin josh Pain. 12:50 The patient presents with abdominal pain in the lower abdomen, right lower quadrant. josh Onset: The symptoms/episode began/occurred 1 week(s) ago. The symptoms radiate to right back. Associated signs and symptoms: none. Modifying factors: The symptoms are alleviated by remaining still, the symptoms are aggravated by jumping, movement. Severity of pain: At its worst the pain was mild. The patient has experienced similar episodes in the past, multiple times. Historical: - Allergies: 12:33 No Known Allergies; ss - PMHx: 12:33 "abdominal issues"; CAD; GERD; Myocardial infarction; Sepsis; Vertigo; ss - PSHx: 12:33 Hernia repair; I\\T\\D; ss - Immunization history:: Adult Immunizations unknown. - Social history:: Smoking status: Patient/guardian denies using tobacco, Smoking status: Patient/guardian denies using tobacco. - Ebola Screening: : Patient denies exposure to infectious person Patient denies travel to an Ebola-affected area in the 21 days before illness onset. - Family history:: not pertinent. ROS: 12:50 Constitutional: Negative for fever, chills, and weight loss, Eyes: Negative for injury, josh pain, redness, and discharge, ENT: Negative for injury, pain, and discharge, Neck: Negative for injury, pain, and swelling, Cardiovascular: Negative for chest pain, palpitations, and edema, Respiratory: Negative for shortness of breath, cough, wheezing, and pleuritic chest pain, Back: Negative for injury and pain, : Negative for injury, bleeding, discharge, and swelling, MS/Extremity: Negative for injury and deformity, Skin: Negative for injury, rash, and discoloration, Neuro: Negative for headache, weakness, numbness, tingling, and seizure, Psych: Negative for depression, anxiety, suicide ideation, homicidal ideation, and hallucinations, Allergy/Immunology: Negative for hives, rash, and allergies, Endocrine: Negative for neck swelling, polydipsia, polyuria, polyphagia, and marked weight changes, Hematologic/Lymphatic: Negative for swollen nodes, abnormal bleeding, and unusual bruising. 12:50 Abdomen/GI: Positive for abdominal pain, of the right lower quadrant. 12:50 : Positive for of the right femoral area and right inguinal area. Exam: 12:50 Constitutional: This is a well developed, well nourished patient who is awake, alert, josh and in no acute distress. Head/Face: Normocephalic, atraumatic. Eyes: Pupils equal round and reactive to light, extra-ocular motions intact. Lids and lashes normal. Conjunctiva and sclera are non-icteric and not injected. Cornea within normal limits. Periorbital areas with no swelling, redness, or edema. ENT: Nares patent. No nasal discharge, no septal abnormalities noted. Tympanic membranes are normal and external auditory canals are clear. Oropharynx with no redness, swelling, or masses, exudates, or evidence of obstruction, uvula midline. Mucous membranes moist. Neck: Trachea midline, no thyromegaly or masses palpated, and no cervical lymphadenopathy. Supple, full range of motion without nuchal rigidity, or vertebral point tenderness. No Meningismus. Chest/axilla: Normal chest wall appearance and motion. Nontender with no deformity. No lesions are appreciated. Cardiovascular: Regular rate and rhythm with a normal S1 and S2. No gallops, murmurs, or rubs. Normal PMI, no JVD. No pulse deficits. Respiratory: Lungs have equal breath sounds bilaterally, clear to auscultation and percussion. No rales, rhonchi or wheezes noted. No increased work of breathing, no retractions or nasal flaring. Abdomen/GI: Soft, non-tender, with normal bowel sounds. No distension or tympany. No guarding or rebound. No evidence of tenderness throughout. Back: No spinal tenderness. No costovertebral tenderness. Full range of motion. Skin: Warm, dry with normal turgor. Normal color with no rashes, no lesions, and no evidence of cellulitis. MS/ Extremity: Pulses equal, no cyanosis. Neurovascular intact. Full, normal range of motion. Neuro: Awake and alert, GCS 15, oriented to person, place, time, and situation. Cranial nerves II-XII grossly intact. Motor strength 5/5 in all extremities. Sensory grossly intact. Cerebellar exam normal. Normal gait. Psych: Awake, alert, with orientation to person, place and time. Behavior, mood, and affect are within normal limits. 12:50 : Male external genitalia: normal, Bladder: is normal. Vital Signs: 12:33 BP 149 / 95; Pulse 87; Resp 16; Temp 98.0(TE); Pulse Ox 98% on R/A; Weight 80.74 kg; ss Height 5 ft. 10 in. (177.80 cm); Pain 9/10; 12:33 Body Mass Index 25.54 (80.74 kg, 177.80 cm) ss MDM: 12:36 Patient medically screened. [facility] 12:50 Data reviewed: vital signs, nurses notes. [facility] 12/17 13:28 Order name: Urine Dipstick--Ancillary (enter results) 12/17 12:53 Order name: Urine Dipstick-Ancillary (obtain specimen); Complete Time: 13:23 [facility] Administered Medications: 13:28 Drug: [place] 10 mg-325 mg 1 tabs Route: PO; iw 13:35 Follow up: Response: No adverse reaction iw Disposition: 12/17/18 13:07 Discharged to Home. Impression: Inguinal hernia - right , repaired, painful. - Condition is Stable. - Discharge Instructions: Inguinal Hernia, Adult, [id number], Inguinal Hernia, Adult. - Prescriptions for Colace 100 mg Oral Tablet - take 1 tablet by ORAL route every 12 hours; 14 tablet. Tylenol- Codeine #3 300-30 mg Oral Tablet - take 2 tablets by ORAL route every 6 hours As needed; 20 tablet. - Medication Reconciliation Form, Thank You Letter, Antibiotic Education, Prescription Opioid Use, Work release form form. - Follow up: David Vickers; When: Tomorrow; Reason: Recheck today's complaints, Continuance of care, Re-evaluation by your physician. - Problem is new. - Symptoms have improved. Signatures: Dispatcher [employer] Naseem Tavera MD MD cha Williams, Irene, RN RN iw Mayra Bolivar RN RN ss Corrections: (The following items were deleted from the chart) 13:34 13:07 12/17/2018 13:07 Discharged to Home. Impression: Inguinal hernia - right , iw repaired, painful. Condition is Stable. Discharge Instructions: Inguinal Hernia, Adult, [id number], Inguinal Hernia, Adult. Prescriptions for Colace 100 mg Oral Tablet - take 1 tablet by ORAL route every 12 hours; 14 tablet, Tylenol-Codeine #3 300-30 mg Oral Tablet - take 2 tablets by ORAL route every 6 hours As needed; 20 tablet. and Forms are Medication Reconciliation Form, Thank You Letter, Antibiotic Education, Prescription Opioid Use. Follow up: David Vickers; When: Tomorrow; Reason: Recheck today's complaints, Continuance of care, Re-evaluation by your physician. Problem is new. Symptoms have improved. josh
[2018-12-17] MEDS ORDERED: HYDROCODONE/APAP 10/325 TAB ONE (13:35)
[2018-12-17 13:39] VITALS: BP 149/95; TEMP 98; O2SAT 98
--- OUTSIDE RECORDS SUMMARY | 2018-12-17 13:46 | XMS REPORT ---
:1975 [facility] Address [address] [place] [address] Dr. Lewis [address] [place] [id number] Care Team Providers Name Role Phone Unavailable Unavailable Unavailable Problems This patient has no known problems. Allergies, Adverse Reactions, Alerts This patient has no known allergies or adverse reactions. Medications This patient has no known medications.
[2018-12-17 13:54] LABS: Urine Blood NEGATIVE (NEG); Urine Glucose NEGATIVE (NEG); Urine Protein NEGATIVE (NEG); Urine pH 5.5 (5.0-7.0)
== END 2018-12-17 13:34 | disposition home or self-care (01) ==
LOC: ER 12:27
DX: K40.90 Unilateral inguinal hernia, without obstruction or gangrene, not specified as recurrent (principal)
CPT/HCPCS: 81003; 99283

== ENCOUNTER 2019-11-18 09:50 | Emergency (ER) | payer BC, OTHER ==
--- OUTSIDE RECORDS SUMMARY | 2019-11-18 09:53 | XMS REPORT ---
:1975 Author Organization eClinicalWorks Care Team Providers Name Role Phone Hull, Na Provider Role Unavailable Allergies No Known Allergies Problems Problem Type Condition Code Onset Dates Condition Status Assessment Allergic rhinitis, unspecified J30.9 Active seasonality, unspecified trigger Problem Mixed hyperlipidemia E78.2 Active Problem Mild depression F32.0 Active Problem Chronic systolic heart failure I50.22 Active Problem Other chronic pain G89.29 Active Problem History of heart attack I25.2 Active Problem Right inguinal hernia K40.90 Active Problem Allergic rhinitis, unspecified J30.9 Active seasonality, unspecified trigger Problem Indigestion K30 Active Medications Medication Code Code Instructions Start End Status Dosage System Date Date Famotidine [facility] 19696934820 20 MG Orally Active 1 tablet Once a day at bedtime Meclizine HCl [facility] 58273431872 25 MG Orally Active 1 tablet Once a day as needed losartan ND 61904065513 20 mg Active one tab daily Flagyl ND 67321252931 500 MG Orally Active 1 tablet every 8 hrs Cipro [facility] 91382668092 500 MG Orally Active 1 tablet every 12 hrs Aspirin 81 [facility] 25859670638 81 MG Orally Active 1 tablet Once a day Prilosec OTC [facility] 34849175079 20 MG Orally Active 1 tablet Once a day Results No Known Results Summary Purpose eClinicalWorks Submission
--- OUTSIDE RECORDS SUMMARY | 2019-11-18 09:53 | XMS REPORT ---
:1975 Author Organization eClinicalWorks Care Team Providers Name Role Phone Hull, Na Provider Role Unavailable Allergies, Adverse Reactions, Alerts Substance Reaction Event Type codeine Info Not Available Drug Allergy Problems Problem Type Condition Code Onset Dates Condition Status Problem Right inguinal hernia K40.90 Active Problem Mixed hyperlipidemia E78.2 Active Problem Other chronic pain G89.29 Active Problem Mild depression F32.0 Active Problem Neuropathy G62.9 Active Problem Indigestion K30 Active Problem History of heart attack I25.2 Active Problem Chronic systolic heart failure I50.22 Active Problem Allergic rhinitis, unspecified J30.9 Active seasonality, unspecified trigger Assessment Mixed hyperlipidemia E78.2 Active Assessment Allergic rhinitis, unspecified J30.9 Active seasonality, unspecified trigger Assessment Screening for diabetes mellitus (DM) Z13.1 Active Assessment Needs flu shot Z23 Active Assessment Chronic systolic heart failure I50.22 Active Assessment Dizziness R42 Active Assessment Vitamin D deficiency E55.9 Active Assessment Encounter for general adult medical Z00.01 Active examination with abnormal findings Assessment Neuropathy G62.9 Active Assessment Acute non-recurrent frontal J01.10 Active sinusitis Medications Medication Code Code Instructions Start End Status Dosage System Date Date losartan [facility] 68415777081 20 mg Active one tab daily Augmentin [facility] 70889375732 500-125 MG Aug 21Aug 28, Active 1 tablet Orally every 12 2019 2019 hrs Famotidine ND 50070513522 20 MG Orally Active 1 tablet Once a day at bedtime Cipro ND 52261327045 500 MG Orally Active 1 tablet every 12 hrs Meclizine HCl ND 41719806712 25 MG Orally Active 1 tablet Once a day as needed Lyrica ND 93747066698 50 MG Orally Inactive 1 capsule twice a day Flonase [facility] 66302346215 50 MCG/ACT Aug 21, Active 2 spray in Nasally Once a 2019 each day nostril Aspirin 81 [facility] 53268412473 81 MG Orally Active 1 tablet Once a day Flagyl [facility] 45104262899 500 MG Orally Active 1 tablet every 8 hrs Prilosec [facility] 24590256763 20 MG Orally Active 1 tablet Once a day Results Name Result Date Reference Range Unit Abnormality Flag Hemoglobin A1c ----Hemoglobin A1c 5.7 20190821 4.8-5.6 % H Comp. Metabolic Panel (14) (CMP) ----Globulin, Total 3.4 20190821 1.5-4.5 g/dL ----eGFR If Africn Am 106 20190821 >59 mL/min/1.73 ----Albumin 4.8 20190821 3.5-5.5 g/dL ----eGFR If NonAfricn 92 03011381 >59 mL/min/1.73 Am ----Sodium 139 20190821 134-144 mmol/L ----Protein, Total 8.2 20190821 6.0-8.5 g/dL ----BUN/Creatinine 16 20190821 9-20 Ratio ----Calcium 10.6 20190821 8.7-10.2 mg/dL H ----AST (SGOT) 18 20190821 0-40 IU/L ----Glucose 110 11644179 65-99 mg/dL H ----Alkaline 80 20190821 39-117 IU/L Phosphatase ----Bilirubin, Total 0.5 20190821 0.0-1.2 mg/dL ----Creatinine 0.98 20190821 0.76-1.27 mg/dL ----A/G Ratio 1.4 20190821 1.2-2.2 ----BUN 16 20190821 6-24 mg/dL ----Carbon Dioxide, 25 20190821 20-29 mmol/L Total ----ALT (SGPT) 30 20190821 0-44 IU/L ----Potassium 5.0 20190821 3.5-5.2 mmol/L ----Chloride 98 20190821 96-106 mmol/L Lipid Panel ----LDL Cholesterol 137 12466091 0-99 mg/dL H Calc ----Cholesterol, Total 205 20190821 100-199 mg/dL H ----Triglycerides 120 24285237 0-149 mg/dL ----HDL Cholesterol 44 20190821 >39 mg/dL ----VLDL Cholesterol 24 20190821 5-40 mg/dL Felipe Urinalysis, Routine ----Urobilinogen,Semi- 0.2 20190821 0.2-1.0 mg/dL Qn ----Glucose Negative 20190821 Negative ----Nitrite, Urine Negative 20190821 Negative ----Protein Negative 20190821 Negative/Trace ----Occult Blood Negative 20190821 Negative ----Bilirubin Negative 20190821 Negative ----Ketones Negative 20190821 Negative ----Appearance Clear 20190821 Clear ----WBC Esterase Negative 20190821 Negative ----pH 7.0 20190821 5.0-7.5 ----Urine-Color Yellow 20190821 Yellow ----Specific [place] 1.014 20190821 1.005-1.030 CBC With Differential/Platelet ----RDW 13.9 20190821 12.3-15.4 % ----MCHC 35.1 09787722 31.5-35.7 g/dL ----MCH 30.1 20190821 26.6-33.0 pg ----MCV 86 20190821 79-97 fL ----Hematocrit 44.5 20190821 37.5-51.0 % ----Hemoglobin 15.6 67857890 13.0-17.7 g/dL ----Immature 0 20190821 Not Estab. % Granulocytes ----RBC 5.19 30534796 4.14-5.80 x10E6/uL ----WBC 8.5 20190821 3.4-10.8 x10E3/uL ----Immature Grans 0.0 20190821 0.0-0.1 x10E3/uL (Abs) ----Eos (Absolute) 0.2 20190821 0.0-0.4 x10E3/uL ----Basos 1 20190821 Not Estab. % ----Baso (Absolute) 0.1 20190821 0.0-0.2 x10E3/uL ----Neutrophils 4.5 20190821 1.4-7.0 x10E3/uL (Absolute) ----Lymphs (Absolute) 3.0 20190821 0.7-3.1 x10E3/uL ----Monocytes(Absolute 0.6 20190821 0.1-0.9 x10E3/uL ) ----Neutrophils 53 20190821 Not Estab. % ----Lymphs 36 20190821 Not Estab. % ----Monocytes 7 20190821 Not Estab. % ----Eos 3 20190821 Not Estab. % ----Platelets 316 20190821 150-450 x10E3/uL Vitamin D, 25-Hydroxy ----Vitamin D, 23.5 20190821 30.0-100.0 ng/mL L 25-Hydroxy Immunizations Vaccine Administration Date Afluria single dose Aug 21, 2019 Summary Purpose eClinicalWorks Submission
--- OUTSIDE RECORDS SUMMARY | 2019-11-18 09:53 | XMS REPORT ---
:1975 Author Organization eClinicalWorks Care Team Providers Name Role Phone Hull, Na Provider Role Unavailable Allergies No Known Allergies Problems Problem Type Condition Code Onset Dates Condition Status Problem Mixed hyperlipidemia E78.2 Active Problem Indigestion K30 Active Problem Right inguinal hernia K40.90 Active Problem Allergic rhinitis, unspecified J30.9 Active seasonality, unspecified trigger Problem History of heart attack I25.2 Active Problem Chronic systolic heart failure I50.22 Active Medications No Known Medications Results No Known Results Summary Purpose eClinicalWorks Submission
--- OUTSIDE RECORDS SUMMARY | 2019-11-18 09:53 | XMS REPORT ---
:1975 Author Organization eClinicalWorks Care Team Providers Name Role Phone Hull, Na Provider Role Unavailable Allergies, Adverse Reactions, Alerts Substance Reaction Event Type codeine Info Not Available Drug Allergy Problems Problem Type Condition Code Onset Dates Condition Status Problem Right inguinal hernia K40.90 Active Problem Mixed hyperlipidemia E78.2 Active Assessment Dizziness R42 Active Assessment Mixed hyperlipidemia E78.2 Active Assessment Chronic systolic heart failure I50.22 Active Assessment Neuropathy G62.9 Active Problem Other chronic pain G89.29 Active Problem Mild depression F32.0 Active Problem Neuropathy G62.9 Active Problem Indigestion K30 Active Problem History of heart attack I25.2 Active Problem Chronic systolic heart failure I50.22 Active Problem Allergic rhinitis, unspecified J30.9 Active seasonality, unspecified trigger Medications Medication Code Code Instructions Start End Status Dosage System Date Date Cipro [facility] 29243077515 500 MG Orally Active 1 tablet every 12 hrs Meclizine HCl ND 40182193790 25 MG Orally Active 1 tablet Once a day as needed Lyrica ND 94342626621 50 MG Orally Jul 22, Active 1 capsule twice a day 2018 losartan ND 72084353351 20 mg Active one tab daily Aspirin 81 ND 94909015592 81 MG Orally Active 1 tablet Once a day Famotidine ND 30710946287 20 MG Orally Active 1 tablet Once a day at bedtime Flagyl ND 12749779803 500 MG Orally Active 1 tablet every 8 hrs Prilosec OTC ND 41577166936 20 MG Orally Active 1 tablet Once a day Results No Known Results Summary Purpose eClinicalWorks Submission
--- OUTSIDE RECORDS SUMMARY | 2019-11-18 09:53 | XMS REPORT ---
:1975 Author Organization [facility] Address [address] [place] [address] Dr. Lewis [address] [place] [id number] Care Team Providers Name Role Phone Unavailable Unavailable Unavailable Problems This patient has no known problems. Allergies, Adverse Reactions, Alerts This patient has no known allergies or adverse reactions. Medications This patient has no known medications.
--- OUTSIDE RECORDS SUMMARY | 2019-11-18 09:54 | XMS REPORT ---
[...] unspecified J30.9 Active seasonality, unspecified trigger Medications No Known Medications Results No Known Results Summary Purpose eClinicalWorks Submission
[2019-11-18] MEDS ORDERED: MORPHINE 4 MG/ML SYR ONE ×2 (10:33→12:38)
[2019-11-18] MEDS ORDERED: NA CHLORIDE 0.9% 1,000 ML ONE (10:33)
[2019-11-18] MEDS ORDERED: ONDANSETRON 4 MG/2 ML VIAL ONE (10:33)
[2019-11-18 10:49] LABS: Absolute Lymphocytes (CBC) 2.7 K/uL (0.7-4.9); Basophils % 0.7 % (0-1.3); Hematocrit 43.6 % (39.6-49.0); Lymphocytes % 17.8 % (15.3-44.8); MPV 6.7 fL (7.6-11.3); RBC Red Blood Cell Count 4.87 M/uL (4.33-5.43)
[2019-11-18 11:03] LABS: Albumin 3.9 g/dL (3.4-5.0); Bilirubin Direct 0.2 mg/dL (0-0.2); Bilirubin Total 0.8 mg/dL (0.2-1.0); Potassium 4.3 mmol/L (3.5-5.1); Protein, Total 8.5 g/dL (6.4-8.2)
[2019-11-18 11:03] LABS: Urine Blood NEGATIVE (NEG); Urine Glucose NEGATIVE (NEG); Urine Protein NEGATIVE (NEG); Urine Specific Gravity 1.025 (1.005-1.030); Urine pH 5.5 (5.0-7.0)
--- NOTE | 2019-11-18 11:54 | RAD REPORT ---
EXAM DESCRIPTION: CT - Abdomen Pelvis W Contrast - 11/18/2019 11:39 am CLINICAL HISTORY: Abdominal pain COMPARISON: July 2019 TECHNIQUE: Computed axial tomography of the abdomen pelvis was obtained. 100 cc Isovue-300 was admin istered intravenously. Oral contrast was not requested which limits evaluation of bowel. All CT scans are performed using dose optimization technique as appropriate and may include automated exposure control or mA/KV adjustment according to patient size. FINDINGS: Mild fatty liver Spleen, pancreas, right adrenal and left kidney unremarkable. Tiny nonobstructing right renal calculu s is present 17 millimeter left adrenal nodule unchanged presumably an adenoma Normal appendix. Post surgical changes of inguinal hernia repair Diverticulosis. Moderate stranding adjacent to the sigmoid colon. No free air. No abscess IMPRESSION: Moderate sigmoid diverticulitis
[2019-11-18] MEDS ORDERED: METRONIDAZOLE 500mg IVPB 500 MG/100 ML BAG IV ONE (12:36)
[2019-11-18] MEDS ORDERED: CIPROFLOXACIN HCL 500 MG TAB ONE (12:36)
--- NOTE | 2019-11-18 12:55 | EDPHYS ---
Physician Documentation [facility] Name: Xiomara Haro Age: 44 yrs Sex: Male : 1975 Arrival Date: 11/18/2019 Time: 09:53 Bed 18 Private MD: Hanh Hull ED Physician Billy Robledo HPI: 11/17 11:27 This 44 yrs old Male presents to ER via Ambulatory with complaints of pm1 Abdominal Pain. 11:27 The patient presents with abdominal pain. Onset: The symptoms/episode began/occurred pm1 yesterday. The symptoms do not radiate. Associated signs and symptoms: Pertinent negatives: nausea, vomiting, and diarrhea, chest pain, dysuria, fever, shortness of breath. The symptoms are described as achy. Modifying factors: The symptoms are alleviated by nothing, the symptoms are aggravated by nothing. Severity of pain: in the emergency department the pain is actually worse. The patient has not experienced similar symptoms in the past, different from his history of kidney stones or hernia. The patient has not recently seen a physician. Historical: - Allergies: 10:08 No Known Allergies; ss - Home Meds: 10:08 losartan 25 mg Oral tab 1 tab once daily [Active]; simvastatin 5 mg Oral tab 1 tab once ss daily [Active]; - PMHx: 10:08 "abdominal issues"; CAD; GERD; Myocardial infarction; systolic heart failure; Vertigo; ss Sepsis; - PSHx: 10:08 Hernia repair; I\\T\\D; ss - Immunization history:: Adult Immunizations up to date. - Social history:: Smoking status: Patient denies any tobacco usage or history of. ROS: 11:27 Constitutional: Negative for fever, chills, and weight loss, Neck: Negative for injury, pm1 pain, and swelling, Cardiovascular: Negative for chest pain, palpitations, and edema, Respiratory: Negative for shortness of breath, cough, wheezing, and pleuritic chest pain. 11:27 Back: Negative for injury and pain, : Negative for injury, bleeding, discharge, and swelling, MS/Extremity: Negative for injury and deformity, Skin: Negative for injury, rash, and discoloration, Neuro: Negative for headache, weakness, numbness, tingling, and seizure. 11:27 Abdomen/GI: Positive for abdominal pain, Negative for nausea, vomiting, and diarrhea. Exam: 11:27 Constitutional: This is a well developed, well nourished patient who is awake, alert, pm1 and in no acute distress. Head/Face: Normocephalic, atraumatic. Neck: Trachea midline, no thyromegaly or masses palpated, and no cervical lymphadenopathy. Supple, full range of motion without nuchal rigidity, or vertebral point tenderness. No Meningismus. Chest/axilla: Normal chest wall appearance and motion. Nontender with no deformity. No lesions are appreciated. Cardiovascular: Regular rate and rhythm with a normal S1 and S2. No gallops, murmurs, or rubs. Normal PMI, no JVD. No pulse deficits. Respiratory: Lungs have equal breath sounds bilaterally, clear to auscultation and percussion. No rales, rhonchi or wheezes noted. No increased work of breathing, no retractions or nasal flaring. 11:27 Back: No spinal tenderness. No costovertebral tenderness. Full range of motion. Skin: Warm, dry with normal turgor. Normal color with no rashes, no lesions, and no evidence of cellulitis. MS/ Extremity: Pulses equal, no cyanosis. Neurovascular intact. Full, normal range of motion. 11:27 Abdomen/GI: Inspection: abdomen appears normal, Bowel sounds: normal, in all quadrants, Palpation: soft, mild abdominal tenderness, in the right lower quadrant and left lower quadrant, mass, is not appreciated, rebound tenderness, is not appreciated. 11:27 Neuro: Orientation: is normal, Mentation: is normal, Motor: moves all fours. Vital Signs: 10:06 BP 129 / 88; Pulse 89; Resp 17; Temp 98.3(TE); Pulse Ox 97% on R/A; Weight 86.18 kg; ss Height 5 ft. 10 in. (177.80 cm); Pain 7/10; 11:00 BP 118 / 76; Pulse 85; Resp 15; Pulse Ox 100% on R/A; hb 12:13 BP 113 / 65; Pulse 86; Resp 16; Pulse Ox 100% on R/A; Pain 4/10; hb 13:00 BP 124 / 62; Pulse 84; Resp 15; Pulse Ox 99% on R/A; Pain 2/10; hb 10:06 Body Mass Index 27.26 (86.18 kg, 177.80 cm) ss MDM: 10:10 Patient medically screened. pm1 12:38 Data reviewed: vital signs. Data interpreted: Pulse oximetry: on room air is 100 %. pm1 Interpretation: normal. 12:53 Counseling: I had a detailed discussion with the patient and/or guardian regarding: the pm1 historical points, exam findings, and any diagnostic results supporting the discharge/admit diagnosis, lab results, radiology results. 12:53 ED course: Offered patient admission, but he would like to go home and take antibiotics pm1 by mouth. Educated on return precautions . 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 07/22/2019 Lyrica prescription. pm1 11/17 10:19 Order name: Basic Metabolic Panel; Complete Time: 11:12 pm1 11/17 10:19 Order name: CBC with Diff; Complete Time: 11:12 pm1 11/17 10:19 Order name: Creatinine for Radiology; Complete Time: 11:12 pm1 11/17 10:19 Order name: Hepatic Function; Complete Time: 11:12 pm1 11/17 10:19 Order name: Lipase; Complete Time: 11:12 pm1 11/17 10:45 Order name: Urine Dipstick--Ancillary (enter results); Complete Time: 11:12 bd 11/17 10:19 Order name: IV Saline Lock; Complete Time: 10:48 pm1 11/17 10:19 Order name: CT Abd/Pelvis - IV Contrast Only; Complete Time: 11:58 pm1 11/17 10:19 Order name: Labs collected and sent; Complete Time: 10:48 pm1 11/17 10:19 Order name: Urine Dipstick-Ancillary (obtain specimen); Complete Time: 10:48 pm1 Administered Medications: 10:33 Drug: NS 0.9% 1000 ml Route: IV; Rate: 1000 ml; Site: left antecubital; hb 11:33 Follow up: Response: No adverse reaction; IV Status: Completed infusion; IV Intake: hb 1000ml 10:33 Drug: morphine 4 mg Route: IVP; Site: left antecubital; hb 11:11 Follow up: Response: No adverse reaction hb 10:33 Drug: Zofran (Ondansetron) 4 mg Route: IVP; Site: left antecubital; hb 11:11 Follow up: Response: No adverse reaction hb 12:38 Drug: morphine 4 mg Route: IVP; Site: left antecubital; hb 13:05 Follow up: Response: No adverse reaction; Pain is decreased hb 12:39 Drug: Cipro 500 mg Route: PO; hb 12:39 Drug: Flagyl 500 mg Volume: 100 ml; Route: IVPB; Rate: 200 ml/hr; Infused Over: 30 hb mins; Site: left antecubital; Disposition: 13:39 Co-signature as Attending Physician, Billy Robledo MD. rn Disposition: 11/18/19 12:54 Discharged to Home. Impression: Diverticulitis of large intestine without perforation or abscess without bleeding. - Condition is Stable. - Discharge Instructions: Clear Liquid Diet, Adult, Diverticulitis. - Prescriptions for Flagyl 500 mg Oral Tablet - take 1 tablet by ORAL route every 6 hours for 10 days; 40 tablet. Tylenol- Codeine #3 300-30 mg Oral Tablet - take 2 tablets by ORAL route every 6 hours As needed; 20 tablet. Cipro 500 mg Oral Tablet - take 1 tablet by ORAL route every 12 hours for 10 days; 20 tablet. - Medication Reconciliation Form, Thank You Letter, Antibiotic Education, Prescription Opioid Use form. - Follow up: Emergency Department; When: As needed; Reason: Worsening of condition. Follow up: Private Physician; When: 2 - 3 days; Reason: Recheck today's complaints, Continuance of care, Re-evaluation by your physician. - Problem is new. - Symptoms have improved. Signatures: Dispatcher [employer] EDMS Billy Robledo MD MD rn Smirch, Shelby, RN RN Tomas Lopez NP [employer]ING MACHINE [employer]ER pm1 Marcelina Briones RN RN Corrections: (The following items were deleted from the chart) 13:35 12:54 11/18/2019 12:54 Discharged to Home. Impression: Diverticulitis of large hb intestine without perforation or abscess without bleeding. Condition is Stable. Forms are Medication Reconciliation Form, Thank You Letter, Antibiotic Education, Prescription Opioid Use. Follow up: Emergency Department; When: As needed; Reason: Worsening of condition. Follow up: Private Physician; When: 2 - 3 days; Reason: Recheck today's complaints, Continuance of care, Re-evaluation by your physician. Problem is new. Symptoms have improved. pm1
--- NOTE | 2019-11-18 12:55 | ER ---
Nurse's Notes [facility] Name: Xiomara Haro Age: 44 yrs Sex: Male : 1975 Arrival Date: 11/18/2019 Time: 09:53 Bed 18 Private MD: Hanh Hull Diagnosis: Diverticulitis of large intestine without perforation or abscess without bleeding Presentation: 11/17 10:07 Chief complaint: Patient states: lower abd pain that began yesterday morning. ss Coronavirus screen: The patient has NOT traveled to a country currently being monitored by the [facility] within the last 14 days. Proceed with normal triage procedures. Ebola Screen: Patient denies exposure to infectious person. Patient denies travel to an Ebola-affected area in the 21 days before illness onset. Initial Sepsis Screen: Does the patient meet any 2 criteria? No. Patient's initial sepsis screen is negative. Does the patient have a suspected source of infection? No. Patient's initial sepsis screen is negative. Risk Assessment: Do you want to hurt yourself or someone else? Patient reports no desire to harm self or others. 10:07 Method Of Arrival: Ambulatory ss 10:07 Acuity: DULCE 3 ss Historical: - Allergies: 10:08 No Known Allergies; ss - Home Meds: 10:08 losartan 25 mg Oral tab 1 tab once daily [Active]; simvastatin 5 mg Oral tab 1 tab once ss daily [Active]; - PMHx: 10:08 "abdominal issues"; CAD; GERD; Myocardial infarction; systolic heart failure; Vertigo; ss Sepsis; - PSHx: 10:08 Hernia repair; I\\T\\D; ss - Immunization history:: Adult Immunizations up to date. - Social history:: Smoking status: Patient denies any tobacco usage or history of. Screenin:40 Abuse screen: Denies threats or abuse. Denies injuries from another. Nutritional hb screening: No deficits noted. Tuberculosis screening: No symptoms or risk factors identified. Fall Risk None identified. Assessment: 10:15 General: Appears in no apparent distress. Behavior is calm, cooperative. Pain: Pain hb currently is 5 out of 10 on a pain scale. Neuro: Level of Consciousness is awake, alert, obeys commands, Oriented to person, place, time, situation. Cardiovascular: Capillary refill < 3 seconds Patient's skin is warm and dry. Respiratory: Airway is patent Respiratory effort is even, unlabored, Respiratory pattern is regular, symmetrical. GI: Abdomen is non-distended, Bowel sounds present X 4 quads. Abd is soft and non tender X 4 quads. Reports lower abdominal pain. : No signs and/or symptoms were reported regarding the genitourinary system. EENT: No signs and/or symptoms were reported regarding the EENT system. Derm: Skin is pink, warm \\T\\ dry. Musculoskeletal: No signs and/or symptoms reported regarding the musculoskeletal system. 11:00 Reassessment: Patient appears in no apparent distress at this time. Patient and/or hb family updated on plan of care and expected duration. Pain level reassessed. Patient is alert, oriented x 3, equal unlabored respirations, skin warm/dry/pink. 12:00 Reassessment: Patient appears in no apparent distress at this time. Patient and/or hb family updated on plan of care and expected duration. Pain level reassessed. Patient is alert, oriented x 3, equal unlabored respirations, skin warm/dry/pink. 13:15 Reassessment: Patient appears in no apparent distress at this time. Patient and/or hb family updated on plan of care and expected duration. Pain level reassessed. Patient is alert, oriented x 3, equal unlabored respirations, skin warm/dry/pink. Vital Signs: 10:06 BP 129 / 88; Pulse 89; Resp 17; Temp 98.3(TE); Pulse Ox 97% on R/A; Weight 86.18 kg; Height 5 ft. 10 in. (177.80 cm); Pain 7/10; 11:00 BP 118 / 76; Pulse 85; Resp 15; Pulse Ox 100% on R/A; hb 12:13 BP 113 / 65; Pulse 86; Resp 16; Pulse Ox 100% on R/A; Pain 4/10; hb 13:00 BP 124 / 62; Pulse 84; Resp 15; Pulse Ox 99% on R/A; Pain 2/10; hb 10:06 Body Mass Index 27.26 (86.18 kg, 177.80 cm) ED Course: 09:53 Patient arrived in ED. rg4 09:53 Hanh Hull MD is Private Physician. rg4 10:06 Arm band placed on right wrist. ss 10:07 Triage completed. 10:10 Marcelina Briones RN is Primary Nurse. hb 10:10 Tomas Lopez NP is PHCP. pm1 10:10 Billy Robledo MD is Attending Physician. pm1 10:33 Inserted saline lock: 20 gauge in left antecubital area, using aseptic technique. Blood hb collected. 10:35 Patient has correct armband on for positive identification. Bed in low position. Call hb light in reach. Side rails up X 1. 11:39 CT Abd/Pelvis - IV Contrast Only In Process Unspecified. EDMS 13:22 No provider procedures requiring assistance completed. IV discontinued, intact, hb bleeding controlled, No redness/swelling at site. Pressure dressing applied. Administered Medications: 10:33 Drug: NS 0.9% 1000 ml Route: IV; Rate: 1000 ml; Site: left antecubital; hb 11:33 Follow up: Response: No adverse reaction; IV Status: Completed infusion; IV Intake: hb 1000ml 10:33 Drug: morphine 4 mg Route: IVP; Site: left antecubital; hb 11:11 Follow up: Response: No adverse reaction hb 10:33 Drug: Zofran (Ondansetron) 4 mg Route: IVP; Site: left antecubital; hb 11:11 Follow up: Response: No adverse reaction hb 12:38 Drug: morphine 4 mg Route: IVP; Site: left antecubital; hb 13:05 Follow up: Response: No adverse reaction; Pain is decreased hb 12:39 Drug: Cipro 500 mg Route: PO; hb 12:39 Drug: Flagyl 500 mg Volume: 100 ml; Route: IVPB; Rate: 200 ml/hr; Infused Over: 30 hb mins; Site: left antecubital; Intake: 11:33 IV: 1000ml; Total: 1000ml. hb Outcome: 12:54 Discharge ordered by MD. pm1 13:22 Discharged to home ambulatory, with friend. hb 13:22 Condition: stable 13:22 Discharge instructions given to patient, Instructed on discharge instructions, follow up and referral plans. medication usage, Demonstrated understanding of instructions, follow-up care, medications, Prescriptions given X 3. 13:35 Patient left the ED. hb Signatures: Dispatcher [employer] EDMS Mayra Bolivar RN RN Tomas Lopez NP PRESS OPERATOR HELPER pm1 Marcelina Brionse RN RN hb Garcia Yvette rg4
[2019-11-18 13:48] VITALS: TEMP 98.3
[2019-11-18 13:49] VITALS: O2SAT 100
[2019-11-18 13:51] VITALS: BP 113/65
== END 2019-11-18 13:35 | disposition home or self-care (01) ==
LOC: ER 09:50
DX: K57.32 Diverticulitis of large intestine without perforation or abscess without bleeding (principal); I25.2 Old myocardial infarction; I25.10 Atherosclerotic heart disease of native coronary artery without angina pectoris
CPT/HCPCS: 96361; 85025; 80048; 36415; 80076; 81003; 83690; 74177; 96375; 96374; 99284; Q9967; J7030; J2405

== ENCOUNTER 2020-07-30 07:40 | Inpatient (IN) | payer OTHER ==
--- OUTSIDE RECORDS SUMMARY | 2020-07-30 07:42 | XMS REPORT | Clinical Summary ---
:1975 Author Organization [facility] Address [address] [place] [address] Care Team Providers Name Role Phone Hanh Hull DO Primary Care Provider Allergies No Known Active Allergies Medications Medication Sig Dispensed Refills Start Date End Date Status losartan (COZAAR) 25 Take 25 mg by 0 01/08/2019 Active MG tablet mouth daily. rosuvastatin (CRESTOR) Take 5 mg by mouth 0 01/04/20 19 Active 5 MG tablet every other day. Takes in the evening esomeprazole (NexIUM) Take 20 mg by 0 Active 20 MG capsule mouth every other day. ascorbic Take by mouth 0 Active acid/multivit-min daily. (EMERGEN-C IMMUNE PLUS ORAL) simethicone Take 180 mg by 0 Act pola (MYLICON,GAS-X) 125 mg mouth every 6 capsule (six) hours as needed for flatulence. celecoxib (CeleBREX) TAKE 1 CAPSULE BY 0 03/31/2019 Active 200 MG capsule MOUTH TWICE DAILY FOR 5 DAYS lidocaine (XYLOCAINE) lidocaine 5 % 0 Active 5 % ointment topical ointment traMADol (ULTRAM) 50 EVERY 6 HOURS 0 09/01/2017 Active mg tablet NEEDED PRN For Pain Active Problems Not on file Surgical History Surgery Date Site/Laterality Comments ABCESS DRAINAGE INGUINAL HERNIA REPAIR 03/11/2006 - Left 04/10/2006 INGUINAL HERNIA REPAIR 08/2017, 06/2018 Right REPAIR, HERNIA, 03/25/2019 Abdomen/Right Procedure: ROBOT IC ASSISTED INGUINAL, LAPAROSCOPIC, LAPAROSC OPIC RIGHT ROBOT-ASSISTED RECURRENT INGUIN AL HERNIA REPAIR WITH MESH , OPEN REMOVAL OF RIGHT INGUINAL MESH; Surgeon: Anthoyn Griffin MD; Loca tion: [facility] OR; Servic e: General; Laterality: Rig ht; Medical devices from this surgery are in t he Implants section. Medical History Medical History Date Comments Inguinal hernia Hyperlipidemia Anesthesia nhpa/nfhap - all mary th secure - few missing GERD (gastroesophageal reflux disease) Exercises daily very active on job, denies cp/sob w/ stairs Myocardial infarct, old cardio says mil d- Pt states he does not think so -stress rel ated Family History Medical History Relation Name Comments No Known Problems Father No Known Problems Mother Relation Name Status Comments Father Mother Alive Social History Tobacco Use Types Packs/Day Years Used Date Former Smoker Cigarettes Quit: 05/10/20 09 Smokeless Tobacco: Never Used Alcohol Use Drinks/Week oz/Week Comments Yes Socially Sex Assigned at Date Recorded Not on file Last Filed Vital Signs Not on file Plan of Treatment Health Maintenance Due Date Last Done Comments INFLUENZA VACCINE 04/11/2020 Implants Implanted Type Area Sales Vendor Device Shelf Model / Identifier Expiration Serial / Date Lot Mesh Surgcl Progrip [id number] Antmcl Rt (Right) - [id number] Surgi liudmila N/A: N/A COVIDIEN 12/09/2021 [id number] / Implanted: Qty: 1 on 03/25/2019 by Anthony Griffin MD at [facility] or / Tissue [id number] Bar[employer] Results Not on fileafter 07/30/2019 Advance Directives For more information, please contact: [phone] Type Date Recorded 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
--- OUTSIDE RECORDS SUMMARY | 2020-07-30 07:43 | XMS REPORT | Continuity of Care Document ---
:1975 Author Organization [facility] t Address [address] [place] [address] Care Team Providers Name Role Phone Della JACKSON Clotilde Primary Care Physician Problems Condition Condition Condition Status Onset Resolution Last Treating Co mments Source Name Details Category Date Date Treatment Clinician Date Mixed Mixed Problem Active [facility] hyperlipid hyperlipid Sarah kes - emia emia [facility] Indigestio Indigestio Problem Active [facility] Right Right Problem Active [facility] inguinal inguinal [facility] - hernia hernia [facility] Allergic Allergic Problem Active [facility] rhinitis, rhinitis, Luke s - unspecifie unspecifie Me moria d d l seasonalit seasonalit Ou tpati y, y, ent unspecifie unspecifie Cl inics d trigger d trigger History of History of Problem Active [facility] heart heart [facility] attack attack [facility] Chronic Chronic Problem Active [facility] systolic systolic [facility] - heart heart [facility] failure failure l [facility] 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 depression Sarah kes - [facility] Other Other Problem Active [facility] chronic chronic [facility] - pain pain [facility] Neuropathy Neuropathy Problem Active [facility] Diverticul Diverticul Diagnosis Active [facility] itis itis [facility] Allergies, Adverse Reactions, Alerts Allergy Allergy Status Severity Reaction(s) Onset Inactive Treating Comm ents Source Name Type Date Date Clinician codeine Adverse Active Info Not [facility] Reaction Available [facility] Family History Family Member Diagnosis Comments Start Date Stop Date Source Natural father No Known Problems [place] Zoroastrian Natural mother No Known Problems [place] Zoroastrian Social History Social Habit Start Date Stop Date Quantity Comments Source Sex Assigned At [facility] ethodist Tobacco use and 2019-06-20 2019-06-20 Never used [facility] ethodist exposure 00:00:00 00:00:00 Alcohol intake 2019-06-20 2019-06-20 Current drinker Vishal on Zoroastrian 00:00:00 00:00:00 of alcohol (finding) Alcohol Comment 2019-02-07 2019-02-07 Socially [facility] ethodist 00:00:00 00:00:00 History of 2009-05-10 Current smoker [facility] thodi tobacco use 00:00:00 Smoking Status Start Date Stop Date Source Former smoker 2019-06-20 00:00:00 2019-06-20 00:00:00 [facility] Medications Ordered Filled Start Stop Current Ordering Indication Dosage Frequency Signature Comments Components Source Medication Medication Date Date Medication? Clinician (SIG) Name Name Alvin Esquivel 2018-09 Yes Na Hull 2 spray in [facility] St - each [facility] - 00:00: nostril [facility] Lyrica Lyrica 2018-09 Yes Na Hull [address] 09-21 [facility] - 00:[facility]: [facility] esomeprazol 2018-09 Yes 20mg Q2D Take 20 mg [place] e (NexIUM) 0-10 by mouth Metho di 20 MG 11:36: every st capsule 47 other day. ascorbic 2018-09 Yes QD Take by [place] acid/multiv 0-10 mouth Methodi it-min 11:36: daily. st (EMERGEN-C 47 IMMUNE PLUS ORAL) simethicone 2018-09 Yes 180mg Q6H Take 180 [place] (MYLICON,GA 0-10 mg by Methodi S-X) 125 mg 11:36: mouth st capsule 47 every 6 (six) hours as needed for flatulence . lidocaine 2018-09 Yes lidocaine [place] (XYLOCAINE) 0-10 5 % Methodi 5 % 11:36: topical st ointment 47 ointment celecoxib Yes TAKE 1 [place] (CeleBREX) 7-21 CAPSULE BY Met hodi 200 MG 00:00: MOUTH st capsule 00 TWICE DAILY FOR 5 DAYS losartan Yes 25mg QD Take 25 mg [place] (COZAAR) 25 4-30 by mouth Meth radha MG tablet 00:00: daily. st 00 rosuvastati Yes 5mg Q2D Take 5 mg [place] (CRESTOR) 4-25 by mouth Meth radha 5 MG tablet 00:00: every st 00 other day. Takes in the evening traMADol 2016-09 Yes EVERY 6 [place] (ULTRAM) 50 2-22 HOURS Meth radha mg tablet 00:00: NEEDED PRN st 00 For Pain Famotidine Famotidine Yes Na Hull [address] [facility] at bedtime [facility] Meclizine Meclizine Yes Na Hull [address] HCl HCl as needed [facility] losartan losartan Yes Na Hull one tab C HI [facility] daily [facility] Flagyl Flagyl Yes Na Hull [address] [facility] Cipro Cipro Yes Na Hull [address] [facility] Aspirin 81 Aspirin 81 Yes Na Hull [address] Prilosec Prilosec Yes Na Hull [address] OTC [facility]TC kes [facility] Metronidazo Metronidazo Yes Na Hull [address] le le kes - [facility] Immunizations Ordered Filled Immunization Date Status Comments [facility] Immunization Name Name Afluria single dose Afluria single dose 2019-08-[address] [facility]00 [facility] Procedures This patient has no known procedures. Plan of Care Planned Activity Planned Date Details Comments Source Future Scheduled 2020-04-11 INFLUENZA VACCINE [place] [facility] Test 00:00:00 [code = INFLUENZA VACCINE] Encounters Start End Encounter Admission Attending Care Care Encounter Source Date/Time Date/Time Type Type Clinicians Facility Department ID 2020-05-02 2020-05-02 [facility] [id number] [facility] 17:59:00 17:59:00 [employer] [facility] 2020-04-30 2020-04-30 [facility] [id number] 13:40:00 13:40:00 t [facility] Medicine Outpati ent Clinics 2019-11-05 2019-11-05 [facility] [id number] 16:05:00 16:05:00 t [facility] Medicine Outpati ent Clinics 2019-08-21 2019-08-21 [facility] [id number] 08:00:00 08:00:00 t [facility]Card [facility] Medicine Outpati ent Clinics 2019-07-22 2019-07-22 [facility] [id number] [address] 16:20:00 16:20:00 t [facility] Medicine Outpati ent Clinics 2019-01-07 2019-01-07 [facility] [id number] 10:00:00 10:00:00 t [facility] Medicine Outpati ent Clinics 2018-12-27 2018-12-27 [facility] [id number] 16:47:00 16:47:00 t [facility] Medicine Outpati ent Clinics Results This patient has no known results.
--- OUTSIDE RECORDS SUMMARY | 2020-07-30 07:43 | XMS REPORT ---
:1975 Author Organization [employer] Care Team Providers Name Role Phone Hull, Na Provider Role Unavailable Allergies No Known Allergies Problems Problem Type Condition Code Onset Dates Condition Statu s Problem Right inguinal hernia K40.90 Active Problem Mixed hyperlipidemia E78.2 Active Assessment Diverticulitis K57.92 Active Problem Other chronic pain G89.29 Active Problem Mild depression F32.0 Active Problem Neuropathy G62.9 Active Problem Indigestion K30 Active Problem History of heart attack I25.2 Acti ve Problem Chronic systolic heart failure I50.22 Active Problem Allergic rhinitis, unspecified J30.9 Active seasonality, unspecified trigger Medications No Known Medications Results No Known Results Summary Purpose [employer] Submission
--- OUTSIDE RECORDS SUMMARY | 2020-07-30 07:43 | XMS REPORT ---
[...] for diabetes mellitus (DM) Z13.1 Active Assessment Allergic rhinitis, unspecified J30.9 Active seasonality, unspecified trigger Assessment Skin lesion of right ear H61.91 Act pola Assessment Mixed hyperlipidemia E78.2 Active Assessment Vitamin D deficiency E55.9 Active Assessment Chronic systolic heart failure I50.22 Active Assessment Neuropathy G62.9 Active Assessment Diverticulitis K57.92 Active Medications Medication Code Code Instructions Start End Status Dosage System Date Date Flonase [facility] 15915480527 50 MCG/ACT Active 2 spray i n Nasally Once a each day nostril Aspirin [address] [facility] 53878374360 81 MG Orally Active 1 ta blet Once a day Meclizine HCl [facility] 92613659452 25 MG Orally Active 1 tablet Once a day as needed Cipro [facility] 95426372088 500 MG Orally Active 1 tabl et every 12 hrs losartan ND 10680274722 20 mg Active one tab daily Prilosec OTC [facility] 92940805394 20 MG Orally Active 1 tablet Once a day Metronidazole ND 59653886345 500 MG Orally Active 1 tablet Twice a day Cipro [facility] 84679230736 500 MG Orally Active 1 tabl et every 12 hrs Flagyl ND 65625493006 500 MG Orally Active 1 tabl et every [address] [facility] 58652179850 50 MG Orally Inactive 1 caps ule twice a day Famotidine [facility] 31139120479 20 MG Orally Active 1 ta blet Once a day at bedtime Results Name Result Date Reference Range Unit Abnormali ty Flag CBC With Differential/Platelet ----Lymphs 23 [id number] Not Estab. % ----Neutrophils 66 [id number] Not Estab. % ----Baso (Absolute) 0.1 [id number] 0.0-0.2 x10E3/uL ----Hemoglobin 13.7 [id number] 13.0-17.7 g/dL ----Eos (Absolute) 0.3 [id number] 0.0-0.4 x10E3/uL ----Hematocrit 39.0 [id number] 37.5-51.0 % ----Monocytes(Absolute) 1.1 [id number] 0.1-0.9 x10E3/uL H ----MCV 87 [id number] 79-97 fL ----Lymphs (Absolute) 3.1 [id number] 0.7-3.1 x10E3/uL ----MCH 30.7 [id number] 26.6-33.0 pg ----Neutrophils 8.8 [id number] 1.4-7.0 x10E3/uL H (Absolute) ----MCHC 35.1 47784444 31.5-35.7 g/dL ----Immature 0 [id number] Not Estab. % Granulocytes ----Basos 1 [id number] Not Estab. % ----RDW 13.1 [id number] 11.6-15.4 % ----Immature Grans (Abs) 0.0 [id number] 0.0-0.1 x10E3/uL ----Eos 2 [id number] Not Estab. % ----WBC 13.4 [id number] 3.4-10.8 x10E3/uL H ----Platelets 300 [id number] 150-450 x10E3/uL ----RBC 4.46 [id number] 4.14-5.80 x10E6/uL ----Monocytes 8 [id number] Not Estab. % Vitamin D, 25-Hydroxy ----Vitamin D, 23.5 72498500 30.0-100.0 ng/mL L 25-Hydroxy Hemoglobin A1c ----Hemoglobin A1c 5.6 45436921 4.8-5.6 % Comp. Metabolic Panel (14) (CMP) ----Sodium 137 [id number] 134-144 mmol/L ----BUN/Creatinine Ratio 16 60993791 9-20 ----Chloride 99 97166433 96-106 mmol/L ----Potassium 4.1 42186329 3.5-5.2 mmol/L ----Calcium 9.0 [id number] 8.7-10.2 mg/dL ----Protein, Total 7.6 24701719 6.0-8.5 g/dL ----Carbon Dioxide, 24 32856886 20-29 mmol/L Total ----A/G Ratio 1.5 [id number] 1.2-2.2 ----eGFR If NonAfricn Am 86 [id number] >59 mL/min/1.73 ----Bilirubin, Total 0.6 92089478 0.0-1.2 mg/dL ----eGFR If Africn Am 100 [id number] >59 mL/min/1.73 ----Albumin 4.5 11738457 4.0-5.0 g/dL ----BUN 16 [id number] 6-24 mg/dL ----Globulin, Total 3.1 82590466 1.5-4.5 g/dL ----Creatinine 1.03 [id number] 0.76-1.27 mg/dL ----ALT (SGPT) 27 81538368 0-44 IU/L ----Glucose 84 64632139 65-99 mg/dL ----Alkaline Phosphatase 65 49099783 39-117 IU/L ----AST (SGOT) 18 [id number] 0-40 IU/L LP+LDL Direct+DLDL/HDL Ratio ----LDL (Dir.)/HDL Ratio 2.7 [id number] 0.0-3.6 ratio ----LDL Chol. (Direct) 101 84682952 0-99 mg/dL H ----VLDL Cholesterol Felipe 27 [id number] 5-40 mg/dL ----HDL Cholesterol 38 [id number] >39 mg/dL L ----Triglycerides 134 31391169 0-149 mg/dL ----Cholesterol, Total 161 [id number] 100-199 mg/dL Summary Purpose [employer]ClinicalWorks Submission
[2020-07-30 09:15] LABS: Albumin 3.6 g/dL (3.4-5.0); Bilirubin Direct 0.2 mg/dL (0-0.2); Bilirubin Total 0.9 mg/dL (0.2-1.0); Potassium 4.1 mmol/L (3.5-5.1); Protein, Total 8.1 g/dL (6.4-8.2)
[2020-07-30] MEDS ORDERED: FAMOTIDINE 20 MG/2 ML VIAL IV ONE (09:27)
[2020-07-30] MEDS ORDERED: ONDANSETRON 4 MG/2 ML VIAL ONE (09:27)
[2020-07-30] MEDS ORDERED: MORPHINE 4 MG/ML SYR ONE (09:27)
[2020-07-30] MEDS ORDERED: NA CHLORIDE 0.9% 1,000 ML ONE (09:27)
[2020-07-30 09:31] LABS: Absolute Lymphocytes (CBC) 2.6 K/uL (0.7-4.9); Basophils % 0.6 % (0-1.3); Lymphocytes % 16.4 % (15.3-44.8); MPV 6.9 fL (7.6-11.3); RBC Red Blood Cell Count 4.79 M/uL (4.33-5.43)
--- NOTE | 2020-07-30 09:33 | RAD REPORT ---
EXAM DESCRIPTION: CT - Abdomen Pelvis W Contrast - 07/30/2020 9:02 am CLINICAL HISTORY: ABD PAIN COMPARISON: Abdomen Pelvis W Contrast dated 11/18/2019 TECHNIQUE: Biphasic, helical CT imaging of the abdomen and pelvis was performed following 100 ml non -ionic IV contrast. No oral contrast. All CT scans are performed using dose optimization technique as appropriate and may include automated exposure control or mA/KV adjustment according to patient size. FINDINGS: No suspicious findings in the lung bases. Liver fatty infiltration pattern is present with no focal abnormality. Portal vein is normal. No panc reas or splenic abnormality. Gallbladder and biliary tree are also without suspicious finding. Symmetric renal function is seen with no hydronephrosis or suspicious renal mass. No pyelonephritis o r acute parenchymal process. No bladder abnormalities. An 18 mm left adrenal mass is present unchange d from prior imaging. No stomach or small bowel abnormality. No appendicitis findings. From cecum through the mid descendin g colon no acute colon process seen. Approximately 8 centimeter long segment of the descending colon- sigmoid colon junction shows circumferential wall thickening and edema. There is moderate diverticul osis throughout the sigmoid colon. Edematous/inflammatory stranding is seen in the surrounding fatty tissues. No free air or pneumatosis. No extravasation of bowel content. No hernia, mass or bulky lymphadenopathy. No suspicious bony findings. IMPRESSION: Acute diverticulitis spanning an 8 centimeter long segment of the descending colon- sigm oid colon junction. No abscess, free air or other complicating factor.
[2020-07-30 10:04] LABS: Urine Blood TRACE (NEG); Urine Glucose NEGATIVE (NEG); Urine Protein NEGATIVE (NEG); Urine Specific Gravity 1.015 (1.005-1.030); Urine pH 6.5 (5.0-7.0)
--- NOTE | 2020-07-30 10:10 | ER ---
Nurse's Notes [facility] Name: Xiomara Haro Age: 45 yrs Sex: Male : 1975 Arrival Date: 07/30/2020 Time: 07:42 Bed 19 Private MD: Biju Soto Na Diagnosis: Abdominal tenderness;Diverticulitis of large intestine without perforation or abscess without bleeding Presentation: 07/30 08:02 Chief complaint: Patient states: I have been having some stomach problems for the past rb3 few months. I had a colonoscopy with Dr. Soto on the of this month and I think he said I have some inflammation. I go for my follow up on August 30 to find out my results. He told me to come here if I started having any problems. Last night I started having severe left lower abdominal pain and it made me double over. Coronavirus screen: Client denies travel out of the [place] in the last 14 days. Ebola Screen: Patient negative for fever greater than or equal to 101.5 degrees Fahrenheit, and additional compatible Ebola Virus Disease symptoms Patient denies exposure to infectious person. Patient denies travel to an Ebola-affected area in the 21 days before illness onset. 08:02 Method Of Arrival: Ambulatory rb3 08:05 Initial Sepsis Screen: Does the patient meet any 2 criteria? No. Patient's initial rb3 sepsis screen is negative. Does the patient have a suspected source of infection? Yes: Acute abdominal pain. Risk Assessment: Do you want to hurt yourself or someone else? Patient reports no desire to harm self or others. Onset of symptoms was July 29, 2020. Care prior to arrival: None. Activity prior to arrival: None. 08:05 Acuity: DULCE 3 rb3 Triage Assessment: 08:13 General: Appears in no apparent distress. uncomfortable, well groomed, well developed, rb3 well nourished, Behavior is calm, cooperative, appropriate for age, Reports feeling ill for 12-24 hours. Pain: Complains of pain in left upper quadrant and left lower quadrant Pain does not radiate. Pain currently is 8 out of 10 on a pain scale. Quality of pain is described as crampy, Pain began 1 day ago. Is intermittent. EENT: No deficits noted. No signs and/or symptoms were reported regarding the EENT system. Neuro: No deficits noted. Level of Consciousness is awake, alert, obeys commands, Oriented to person, place, time, situation. Cardiovascular: No deficits noted. Denies chest pain, diaphoresis, fatigue, lightheadedness, nausea, palpitations, shortness of breath, Heart tones S1 S2 present. Respiratory: No deficits noted. Denies shortness of breath at rest, on exertion. GI: Abdomen is round distended, Last BM was July 26, 2020. Bowel sounds present X 4 quads. present in right upper quadrant, left upper quadrant, right lower quadrant and left lower quadrant diminished in left lower quadrant hypoactive in left lower quadrant Abd is soft X 4 quads Abdomen is tender to palpation in left upper quadrant and left lower quadrant Reports lower abdominal pain, bloating, constipation, Patient currently denies diarrhea, nausea. : No deficits noted. No signs and/or symptoms were reported regarding the genitourinary system. Derm: No deficits noted. No signs and/or symptoms reported regarding the dermatologic system. Skin is intact, is healthy with good turgor, Skin is dry, Skin is pink, warm \T\ dry. Skin temperature is warm. Musculoskeletal: No deficits noted. No signs and/or symptoms reported regarding the musculoskeletal system. Historical: - Allergies: 08:13 No Known Allergies; rb3 - Home Meds: 08:12 losartan 25 mg Oral tab 1 tab once daily [Active]; aspirin 81 mg Oral chew 1 tab once rb3 daily [Active]; simvastatin 5 mg Oral tab 1 tab once daily [Active]; - PMHx: 08:12 Myocardial infarction; rb3 - PSHx: 08:12 Hernia repair; rb3 - Immunization history:: Adult Immunizations up to date. - Social history:: Smoking status: Patient/guardian denies using. - Family history:: not pertinent. - Code Status:: Full code. - Hospitalizations: : No recent hospitalization is reported. Screenin:13 Abuse screen: Denies threats or abuse. Nutritional screening: No deficits noted. rb3 Tuberculosis screening: No symptoms or risk factors identified. Fall Risk None identified. Assessment: 08:13 General: See triage assessment. rb3 08:17 Reassessment: No changes from previously documented assessment. rb3 09:30 Reassessment: Patient appears in no apparent distress at this time. Patient and/or rb3 family updated on plan of care and expected duration. Pain level reassessed. Patient is alert, oriented x 3, equal unlabored respirations, skin warm/dry/pink. 10:30 Reassessment: Patient appears in no apparent distress at this time. No changes from rb3 previously documented assessment. 11:30 Reassessment: Patient appears in no apparent distress at this time. Patient and/or rb3 family updated on plan of care and expected duration. Pain level reassessed. Patient is alert, oriented x 3, equal unlabored respirations, skin warm/dry/pink. 12:20 Reassessment: Unable to give report right now, BITA Real is with another pt at this rb3 time. 12:24 Reassessment: Patient appears in no apparent distress at this time. No changes from rb3 previously documented assessment. 12:54 Reassessment: Gave report to BITA Kebede. Information from the SBAR was given. All rb3 questions asked and answered. Vital Signs: 08:02 BP 135 / 90; Pulse 88; Resp 20; Temp 99.5(TE); Pulse Ox 98% on R/A; Weight 83.91 kg rb3 (R); Height 5 ft. 10 in. (177.80 cm); Pain 8/10; 09:30 BP 128 / 89; Pulse 80; Resp 18; Pulse Ox 97% on R/A; rb3 11:00 BP 123 / 91; Pulse 78; Resp 18; Pulse Ox 97% ; rb3 12:00 BP 143 / 92; Pulse 88; Resp 17; Pulse Ox 100% ; rb3 13:00 BP 129 / 92; Pulse 77; Resp 17; Pulse Ox 99% ; rb3 08:02 Body Mass Index 26.54 (83.91 kg, 177.80 cm) rb3 ED Course: 07:42 Patient arrived in ED. as 07:43 Hanh Hull MD is Private Physician. as 07:43 Te Soto MD is Private Physician. as 07:43 Lamine Soto MD is Private Physician. as 07:57 Naseem Xie MD is Attending Physician. josh 08:07 Triage completed. rb3 08:13 Arm band placed on right wrist. rb3 08:13 Patient has correct armband on for positive identification. Bed in low position. Call rb3 light in reach. Side rails up X 1. Pulse ox on. NIBP on. 08:40 Inserted saline lock: 20 gauge in right antecubital area, using aseptic technique. rb3 Blood collected. 09:03 CT Abd/Pelvis - IV Contrast Only In Process Unspecified. EDMS 09:15 CT completed. Patient tolerated procedure well. Patient moved back from CT. 09:21 Brittney Garcia, BITA is Primary Nurse. rb3 10:08 Thaddeus Alan is Hospitalizing Provider. josh 10:22 Harmony Pizarro MD is Hospitalizing Provider. [facility] 13:25 No provider procedures requiring assistance completed. Patient admitted, IV remains in rb3 place. Administered Medications: 09:22 Drug: NS 0.9% 1000 ml Route: IV; Rate: 1 bolus; Site: right antecubital; rb3 10:33 Follow up: IV Status: Completed infusion rb3 09:22 Drug: morphine 4 mg Route: IVP; Site: right antecubital; rb3 09:50 Follow up: Response: No adverse reaction; Pain is decreased rb3 09:22 Drug: Zofran (Ondansetron) 4 mg Route: IVP; Site: right antecubital; rb3 09:40 Follow up: Response: No adverse reaction rb3 09:22 Drug: Pepcid 20 mg Route: IVP; Site: right antecubital; rb3 09:40 Follow up: Response: No adverse reaction rb3 10:12 Drug: Flagyl 500 mg Volume: 100 ml; Route: IVPB; Rate: 200 ml/hr; Infused Over: 30 rb3 mins; Site: right antecubital; 10:42 Follow up: Response: No adverse reaction; IV Status: Completed infusion rb3 11:23 Drug: Zosyn 3.375 grams Route: IVPB; Infused Over: 60 mins; Site: right antecubital; rb3 12:30 Follow up: Response: No adverse reaction; IV Status: Completed infusion rb3 Output: 10:04 Urine: 200ml (Voided); Total: 200ml. rb3 Outcome: 10:09 Decision to Hospitalize by Provider. josh 13:25 Admitted to Med/surg accompanied by tech, via wheelchair, room 218, with chart, Report rb3 called to BITA Kebede 13:25 Condition: stable 13:25 Instructed on the need for admit. 13:26 Patient left the ED. rb3 Signatures: Dispatcher [employer] EDNaseem Goetz, MD MD josh Houston, Lauren Velasquez Rebecca, RN RN rb3
--- NOTE | 2020-07-30 10:10 | EDPHYS ---
Physician Documentation [facility] Name: Xiomara aHro Age: 45 yrs Sex: Male : 1975 Arrival Date: 07/30/2020 Time: 07:42 Bed 19 Private MD: Biju Soto Na ED Physician Naseem Xie HPI: 07/30 10:04 This 45 yrs old Male presents to ER via Ambulatory with complaints of josh Abdominal Pain. 10:04 The patient presents with abdominal pain abdominal distention in the lower abdomen. josh Onset: The symptoms/episode began/occurred 3 day(s) ago. The symptoms do not radiate. Associated signs and symptoms: none. The symptoms are described as crampy, dull, steady. Modifying factors: The symptoms are alleviated by nothing, the symptoms are aggravated by movement, pressure. Severity of pain: At its worst the pain was moderate in the emergency department the pain is unchanged. The patient has experienced similar episodes in the past, a few times. Historical: - Allergies: 08:13 No Known Allergies; rb3 - Home Meds: 08:12 losartan 25 mg Oral tab 1 tab once daily [Active]; aspirin 81 mg Oral chew 1 tab once rb3 daily [Active]; simvastatin 5 mg Oral tab 1 tab once daily [Active]; - PMHx: 08:12 Myocardial infarction; rb3 - PSHx: 08:12 Hernia repair; rb3 - Immunization history:: Adult Immunizations up to date. - Social history:: Smoking status: Patient/guardian denies using. - Family history:: not pertinent. - Code Status:: Full code. - Hospitalizations: : No recent hospitalization is reported. ROS: 10:04 Constitutional: Negative for fever, chills, and weight loss, Eyes: Negative for injury, josh pain, redness, and discharge, ENT: Negative for injury, pain, and discharge, Neck: Negative for injury, pain, and swelling, Cardiovascular: Negative for chest pain, palpitations, and edema, Respiratory: Negative for shortness of breath, cough, wheezing, and pleuritic chest pain, Back: Negative for injury and pain, : Negative for injury, bleeding, discharge, and swelling, MS/Extremity: Negative for injury and deformity, Skin: Negative for injury, rash, and discoloration, Neuro: Negative for headache, weakness, numbness, tingling, and seizure, Psych: Negative for depression, anxiety, suicide ideation, homicidal ideation, and hallucinations, Allergy/Immunology: Negative for hives, rash, and allergies, Endocrine: Negative for neck swelling, polydipsia, polyuria, polyphagia, and marked weight changes, Hematologic/Lymphatic: Negative for swollen nodes, abnormal bleeding, and unusual bruising. 10:04 Abdomen/GI: Positive for abdominal pain, of the left lower quadrant. Exam: 10:04 Constitutional: This is a well developed, well nourished patient who is awake, alert, josh and in no acute distress. Head/Face: Normocephalic, atraumatic. Eyes: Pupils equal round and reactive to light, extra-ocular motions intact. Lids and lashes normal. Conjunctiva and sclera are non-icteric and not injected. Cornea within normal limits. Periorbital areas with no swelling, redness, or edema. ENT: Nares patent. No nasal discharge, no septal abnormalities noted. Tympanic membranes are normal and external auditory canals are clear. Oropharynx with no redness, swelling, or masses, exudates, or evidence of obstruction, uvula midline. Mucous membranes moist. Neck: Trachea midline, no thyromegaly or masses palpated, and no cervical lymphadenopathy. Supple, full range of motion without nuchal rigidity, or vertebral point tenderness. No Meningismus. Chest/axilla: Normal chest wall appearance and motion. Nontender with no deformity. No lesions are appreciated. Cardiovascular: Regular rate and rhythm with a normal S1 and S2. No gallops, murmurs, or rubs. Normal PMI, no JVD. No pulse deficits. Respiratory: Lungs have equal breath sounds bilaterally, clear to auscultation and percussion. No rales, rhonchi or wheezes noted. No increased work of breathing, no retractions or nasal flaring. Back: No spinal tenderness. No costovertebral tenderness. Full range of motion. Male : Normal genitalia with no discharge or lesions. Skin: Warm, dry with normal turgor. Normal color with no rashes, no lesions, and no evidence of cellulitis. MS/ Extremity: Pulses equal, no cyanosis. Neurovascular intact. Full, normal range of motion. Neuro: Awake and alert, GCS 15, oriented to person, place, time, and situation. Cranial nerves II-XII grossly intact. Motor strength 5/5 in all extremities. Sensory grossly intact. Cerebellar exam normal. Normal gait. Psych: Awake, alert, with orientation to person, place and time. Behavior, mood, and affect are within normal limits. 10:04 Abdomen/GI: Inspection: abdomen appears normal, Bowel sounds: normal, Palpation: moderate abdominal tenderness, in the left lower quadrant, Liver: no appreciated palpable abnormalities, Hernia: not appreciated. Vital Signs: 08:02 BP 135 / 90; Pulse 88; Resp 20; Temp 99.5(TE); Pulse Ox 98% on R/A; Weight 83.91 kg rb3 (R); Height 5 ft. 10 in. (177.80 cm); Pain 8/10; 09:30 BP 128 / 89; Pulse 80; Resp 18; Pulse Ox 97% on R/A; rb3 11:00 BP 123 / 91; Pulse 78; Resp 18; Pulse Ox 97% ; rb3 12:00 BP 143 / 92; Pulse 88; Resp 17; Pulse Ox 100% ; rb3 13:00 BP 129 / 92; Pulse 77; Resp 17; Pulse Ox 99% ; rb3 08:02 Body Mass Index 26.54 (83.91 kg, 177.80 cm) rb3 MDM: 07:57 Patient medically screened. josh 10:04 Differential diagnosis: bowel obstruction, diverticulitis, Mesenteric ischemia or josh infarction, pancreatitis, Perf. Duodenal Ulcer, Perf. Gastric Ulcer, Peritonitis, Ureterolithiasis. Data reviewed: vital signs, nurses notes, lab test result(s), radiologic studies, CT scan, plain films. Data interpreted: traffic monitor specialist: rate is 80 beats/min, rhythm is regular, Pulse oximetry: on room air is 97 %. Counseling: I had a detailed discussion with the patient and/or guardian regarding: the historical points, exam findings, and any diagnostic results supporting the discharge/admit diagnosis, lab results, radiology results. 07/30 07:59 Order name: Basic Metabolic Panel; Complete Time: 09:31 [facility] 07/30 07:59 Order name: CBC with Diff [facility] 07/30 07:59 Order name: Hepatic Function; Complete Time: 09: [facility] 07/30 07:59 Order name: Lipase; Complete Time: : [facility] 07/30 07:59 Order name: Urine Culture [facility] 07/30 09:34 Order name: CREATININE WHOLE BLOOD; Complete Time: 10:10 [facility] 07/30 09:55 Order name: Urine Dipstick--Ancillary (enter results); Complete Time: 10:10 em1 07/30 11:36 Order name: Urinalysis [facility] 07/30 11:36 Order name: CBC with Automated Diff [facility] 07/30 11:36 Order name: CBC with Automated Diff [facility] 07/30 11:36 Order name: Comprehensive Metabolic Panel [facility] 07/30 11:36 Order name: Comprehensive Metabolic Panel [facility] 07/30 11:36 Order name: Lactate [facility] 07/30 11:36 Order name: Lactate [facility] 07/30 07:59 Order name: IV Saline Lock; Complete Time: 09:11 [facility] 07/30 07:59 Order name: CT Abd/Pelvis - IV Contrast Only; Complete Time: 10:10 [facility] 07/30 11:36 Order name: CONS Physician Consult [facility] 07/30 11:36 Order name: NPO [facility] 07/30 11:36 Order name: Magnesium [facility] 07/30 11:36 Order name: Magnesium [facility] 07/30 11:36 Order name: NT PRO-BNP [facility] 07/30 11:36 Order name: NT PRO-BNP [facility] 07/30 11:36 Order name: Phosphorus [facility] 07/30 11:36 Order name: Phosphorus [facility] 07/30 07:59 Order name: Labs collected and sent; Complete Time: 09:11 [facility] 07/30 07:59 Order name: Urine Dipstick-Ancillary (obtain specimen); Complete Time: 09:52 [facility] Administered Medications: 09:22 Drug: NS 0.9% 1000 ml Route: IV; Rate: 1 bolus; Site: right antecubital; rb3 10:33 Follow up: IV Status: Completed infusion rb3 09:22 Drug: morphine 4 mg Route: IVP; Site: right antecubital; rb3 09:50 Follow up: Response: No adverse reaction; Pain is decreased rb3 09:22 Drug: Zofran (Ondansetron) 4 mg Route: IVP; Site: right antecubital; rb3 09:40 Follow up: Response: No adverse reaction rb3 09:22 Drug: Pepcid 20 mg Route: IVP; Site: right antecubital; rb3 09:40 Follow up: Response: No adverse reaction rb3 10:12 Drug: Flagyl 500 mg Volume: 100 ml; Route: IVPB; Rate: 200 ml/hr; Infused Over: 30 rb3 mins; Site: right antecubital; 10:42 Follow up: Response: No adverse reaction; IV Status: Completed infusion rb3 11:23 Drug: Zosyn 3.375 grams Route: IVPB; Infused Over: 60 mins; Site: right antecubital; rb3 12:30 Follow up: Response: No adverse reaction; IV Status: Completed infusion rb3 Disposition: 07/30/20 10:09 Hospitalization ordered by Harmony Pizarro for Inpatient Admission. Preliminary diagnosis are Abdominal tenderness, Diverticulitis of large intestine without perforation or abscess without bleeding. - Bed requested for Telemetry/MedSurg (Inpatient). - Status is Inpatient Admission. rb3 - Condition is Fair. - Problem is new. - Symptoms have improved. Signatures: Dispatcher [employer] Christina Patel RN RN dw Anderson, Corey, MD MD cha Barber, Rebecca, RN RN rb3 Corrections: (The following items were deleted from the chart) 10:22 10:09 Hospitalization Ordered by Thaddeus Alan for Inpatient Admission. Preliminary josh diagnosis is Abdominal tenderness; Diverticulitis of large intestine without perforation or abscess without bleeding. Bed requested for Telemetry/MedSurg (Inpatient). Status is Inpatient Admission. Condition is Fair. Problem is new. Symptoms have improved. [facility] 12:08 10:22 07/30/2020 10:09 Hospitalization Ordered by Harmony Pizarro MD for Inpatient dw Admission. Preliminary diagnosis is Abdominal tenderness; Diverticulitis of large intestine without perforation or abscess without bleeding. Bed requested for Telemetry/MedSurg (Inpatient). Status is Inpatient Admission. Condition is Fair. Problem is new. Symptoms have improved. [facility] 13:26 12:08 07/30/2020 10:09 Hospitalization Ordered by Harmony Pizarro MD for Inpatient rb3 Admission. Preliminary diagnosis is Abdominal tenderness; Diverticulitis of large intestine without perforation or abscess without bleeding. Bed requested for Telemetry/MedSurg (Inpatient). Status is Inpatient Admission. Condition is Fair. Problem is new. Symptoms have improved.
[2020-07-30] MEDS ORDERED: PIPER/TAZO/NS 3.375gm 3.375 GM/100 ML BAG ONE (10:20)
[2020-07-30] MEDS ORDERED: METRONIDAZOLE 500mg IVPB 500 MG/100 ML BAG IV ONE (10:21)
[2020-07-30] MEDS ORDERED: ONDANSETRON 4 MG/2 ML VIAL IV PRN (11:33)
[2020-07-30] MEDS: MORPHINE 4 MG/ML SYR IV PRN ×2 (12:58→18:53)
[2020-07-30 13:48] VITALS: BMI 26.5
[2020-07-30] MEDS: NA CHLORIDE 0.9% 1,000 ML IV SCH ×2 (14:24→22:00)
[2020-07-30] MEDS ORDERED: PIPER/TAZO/NS 3.375gm 3.375 GM/100 ML BAG IVPB SCH (17:00)
[2020-07-30] MEDS: PIPER/TAZO/NS 3.375gm 3.375 GM/100 ML BAG IVPB SCH (17:21)
[2020-07-30] MEDS: ACETAMINOPHEN 500 MG TAB PO PRN (22:33)
[2020-07-31] MEDS: PIPER/TAZO/NS 3.375gm 3.375 GM/100 ML BAG IVPB SCH ×3 (01:43→17:20)
[2020-07-31] MEDS ORDERED: INFLUENZA VACCINE (for 3y+) 0.5 ML DOSE IMVAC ONE (06:00)
[2020-07-31 06:36] LABS: Absolute Lymphocytes (CBC) 2.2 K/uL (0.7-4.9); Hematocrit 38.1 % (39.6-49.0); Lymphocytes % 16.4 % (15.3-44.8); MPV 6.6 fL (7.6-11.3); RBC Red Blood Cell Count 4.32 M/uL (4.33-5.43)
[2020-07-31 06:56] LABS: Albumin 3.2 g/dL (3.4-5.0); Bilirubin Total 1.3 mg/dL (0.2-1.0); Magnesium 2.3 mg/dL (1.8-2.4); Phosphorus 2.5 mg/dL (2.5-4.9); Potassium 4.5 mmol/L (3.5-5.1); Protein, Total 7.5 g/dL (6.4-8.2)
[2020-07-31] MEDS: NA CHLORIDE 0.9% 1,000 ML IV SCH ×2 (08:38→18:00)
[2020-07-31] MEDS ORDERED: ENOXAPARIN 40 MG/0.4 ML SQ SCH (09:00)
--- NOTE | 2020-07-31 09:10 | P.HP ---
Certification for Inpatient Patient admitted to: Inpatient With expected LOS: >2 Midnights Patient will require the following post-hospital care: None Practitioner: I am a practitioner with admitting privileges, knowledge of patient current condition, hospital course, and medical plan of care. Services: Services provided to patient in accordance with Admission requirements found in Title 42 Section 412.3 of the Code of Federal Regulations Patient History Date of Service: 07/30/20 Reason for admission: ABDOMINAL PAIN History of Present Illness: PATIENT IS A 45-YEAR-OLD GENTLEMAN WHO CAME TO THE HOSPITAL WITH ABDOMINAL DISCOMFORT. HE WAS AT WORK AND THE PAIN STARTED SUDDENLY. HE HAS SEVERE DISCOMFORT AND IT WAS NOT IMPROVING SO CAME INTO THE EMERGENCY ROOM. IN THE EMERGENCY ROOM HE WAS FOUND TO HAVE DIVERTICULITIS. HE STATES THAT HE HAS HAD EPISODES OF PAIN OVER THE LAST 6 MONTHS. HE DID HAVE 1 ADMISSION WITH DIVERTICULITIS IN OCTOBER. HE HAD A COLONOSCOPY AFTERWARDS THAT DID NOT REVEAL ANY ABNORMAL FINDINGS. THE SYMPTOMS WERE SIMILAR TO THAT ADMISSION. HE WILL BE ADMITTED TO THE HOSPITAL FOR IV ANTIBIOTIC THERAPY. WILL CONTINUE WITH PAIN CONTROL WELL. HE HAS A HE HAS BEEN HAVING SOME NAUSEA BUT HAS NOT HAD ANY VOMITING. HE HAS HAD NO DIARRHEA EITHER. PATIENT WILL NEED ADMISSION FOR FURTHER EVALUATION. Allergies codeine Allergy (Intermediate, Verified 06/12/18 10:13) Unknown acetaminophen [From Vicodin] Adverse Reaction (Mild, Verified 06/12/18 10:13) vomiting hydrocodone bitartrate [From Vicodin] Adverse Reaction (Mild, Verified 06/12/18 10:13) vomiting hydrocodone [Hydrocodone] Adverse Reaction (Verified 06/12/18 10:13) Nausea/Vomiting Home Medications: Aspirin [Aspirin EC 81 MG] 81 mg PO DAILY 04/22/16 Famotidine [Pepcid*] 20 mg PO BID 08/31/17 Losartan Potassium [Cozaar] 25 mg PO [id number] 08/31/17 Rosuvastatin Calcium 5 mg PO BEDTIME 06/12/18 - Past Medical/Surgical History Has patient received pneumonia vaccine in the past: No Diabetic: No -: GERD -: MD (2010) -: CAD -: Kidney Stones -: Sepsis -: I&D on Rt cheek -: Hernia Repair - Family History Father Medical History: Heart disease, Hypertension Mother Medical History: Hypertension, GI disease, Other (see notes) Notes: Diverticulitis - Social History Smoking Status: Former smoker Alcohol use: No CD- Drugs: No Caffeine use: Yes Place of Residence: Home Review of Systems 10-point ROS is otherwise unremarkable Physical Examination - Vital Signs Temperature: 98.3 F Blood Pressure: 100/65 Pulse: 79 Respirations: 18 Pulse Ox (%): 96 - Physical Exam General: Alert, In no apparent distress, Oriented x3 HEENT: Atraumatic, Normocephalic Neck: Supple, 2+ carotid pulse no bruit, JVD not distended Respiratory: Clear to auscultation bilaterally, Normal air movement Cardiovascular: Regular rate/rhythm, Normal S1 S2, No murmurs Gastrointestinal: Normal bowel sounds, Soft and benign, No rebound, No guarding, Distended, Tenderness Musculoskeletal: No clubbing, No swelling Integumentary: No rashes Neurological: Normal gait, Normal speech, Normal strength at 5/5 x4 extr, Normal tone, Sensation intact, Cranial nerves 3-12 intact - Studies Laboratory Data (last 24 hrs) 07/30/20 08:43: WBC 15.6 H, Hgb 14.5, Hct 42.0, Plt Count 254 07/30/20 08:43: Sodium 138, Potassium 4.1, BUN 18, Creatinine 1.00, Glucose 104, Total Bilirubin 0.9, AST 15, ALT 31, Alkaline Phosphatase 75, Lipase 78 Assessment & Plan - Problems (Diagnosis) (1) Diverticulitis Current Visit: Yes Status: Acute - Plan PLAN: 1. IV FLUIDS AND IV ANTIBIOTICS 2. STOOL STUDIES 3. GI CONSULTATION 4. PAIN CONTROL 5. OUTPATIENT COLONOSCOPY 6. REPEAT ABDOMINAL FILM IF PAIN WORSENS TO RULE OUT PERFORATION 7. GI AND DVT PROPHYLAXIS Discharge Plan: Home Plan to discharge in: Greater than 2 days - Advance Directives Does patient have a Living Will: No Does patient have a Durable POA for Healthcare: No - Code Status/Comfort Care Code Status Assessed: Yes Code Status: Full Code Critical Care: No Time Spent Managing PTS Care (In Minutes): 45
[2020-07-31] MEDS: ACETAMINOPHEN 500 MG TAB PO PRN (10:43)
[2020-07-31 23:30] VITALS: O2SAT 99
[2020-08-01] MEDS: PIPER/TAZO/NS 3.375gm 3.375 GM/100 ML BAG IVPB SCH (00:15)
[2020-08-01] MEDS: NA CHLORIDE 0.9% 1,000 ML IV SCH (03:08)
--- NOTE | 2020-08-01 07:53 | P.PN ---
Subjective Date of Service: 07/31/20 Subjective: Improving Patient clinically feeling better. Started him on a clear liquid diet and advanced to a full liquid this morning. Spoke with Gastroenterology and recommended outpatient follow-up Review of Systems 10-point ROS is otherwise unremarkable Physical Examination - Vital Signs Temperature: 97.4 F Blood Pressure: 136/73 Pulse: 68 Respirations: 19 Pulse Ox (%): 97 - Physical Exam General: Alert, In no apparent distress, Oriented x3 Respiratory: Clear to auscultation bilaterally, Normal air movement Cardiovascular: Regular rate/rhythm, Normal S1 S2, No murmurs Gastrointestinal: Normal bowel sounds, Soft and benign, No rebound, No guarding, Distended, Tenderness Musculoskeletal: No clubbing, No swelling, No tenderness Neurological: Sensation intact, Cranial nerves 3-12 intact - Studies Medications List Reviewed: Yes Assessment & Plan - Problems (Diagnosis) (1) Diverticulitis Current Visit: Yes Status: Acute - Plan 1. Continue with IV hydration 2. Continue with IV antibiotics 3. Continue with pain control 4. Clear liquid diet and advance as tolerated 5. GI consultation appreciated; outpatient follow with colorectal surgeon, Dr. Baum 6. Serial H&H, and we will monitor CBC, BMP, LFTs and lipase along with electrolytes. 7. GI and DVT prophylaxis Discharge Plan: Home Plan to discharge in: 48 Hours - Advance Directives Does patient have a Living Will: No Does patient have a Durable POA for Healthcare: No - Code Status/Comfort Care Code Status: Full Code Critical Care: No Time Spent Managing PTS Care (In Minutes): 35
--- NOTE | 2020-08-01 08:02 | P.DS ---
Discharge Date: 08/01/20 Disposition: ROUTINE DISCHARGE Discharge Condition: GOOD Reason for Admission: ABDOMINAL PAIN Consultations: Gastroenterology - Problems (1) Diverticulitis Status: Acute Brief History of Present Illness: PATIENT IS A 45-YEAR-OLD GENTLEMAN WHO CAME TO THE HOSPITAL WITH ABDOMINAL DISCOMFORT. HE WAS AT WORK AND THE PAIN STARTED SUDDENLY. HE HAS SEVERE DISCOMFORT AND IT WAS NOT IMPROVING SO CAME INTO THE EMERGENCY ROOM. IN THE EMERGENCY ROOM HE WAS FOUND TO HAVE DIVERTICULITIS. HE STATES THAT HE HAS HAD EPISODES OF PAIN OVER THE LAST 6 MONTHS. HE DID HAVE 1 ADMISSION WITH DIVERTICULITIS IN OCTOBER. HE HAD A COLONOSCOPY AFTERWARDS THAT DID NOT REVEAL ANY ABNORMAL FINDINGS. THE SYMPTOMS WERE SIMILAR TO THAT ADMISSION. HE WILL BE ADMITTED TO THE HOSPITAL FOR IV ANTIBIOTIC THERAPY. WILL CONTINUE WITH PAIN CONTROL WELL. HE HAS A HE HAS BEEN HAVING SOME NAUSEA BUT HAS NOT HAD ANY VOMITING. HE HAS HAD NO DIARRHEA EITHER. PATIENT WILL NEED ADMISSION FOR FURTHER EVALUATION. Hospital Course: Patient did well with IV antibiotic therapy. Vision is clinically doing better. At this time patient will be discharged on oral antibiotics in outpatient followup with gastroenterology. Patient may need to see colorectal surgeon as an outpatient. Vital Signs/Physical Exam: Temp Pulse Resp BP Pulse Ox 97.4 F 68 19 136/73 97 08/01/20 07:52 08/01/20 07:52 08/01/20 07:52 08/01/20 07:52 08/01/20 07:52 General: Alert, In no apparent distress, Oriented x3 Laboratory Data at Discharge: WBC 13.3 K/uL (4.3-10.9) H D 07/31/20 06:25 Hgb 13.3 g/dL (13.6-17.9) L 07/31/20 06:25 Hct 38.1 % (39.6-49.0) L 07/31/20 06:25 Plt Count 235 K/uL (152-406) 07/31/20 06:25 Sodium 138 mmol/L (136-145) 07/31/20 06:20 Potassium 4.5 mmol/L (3.5-5.1) 07/31/20 06:20 BUN 20 mg/dL (7-18) H 07/31/20 06:20 Creatinine 1.00 mg/dL (0.55-1.3) 07/31/20 06:20 Glucose 71 mg/dL (74-106) L 07/31/20 06:20 Phosphorus 2.5 mg/dL (2.5-4.9) 07/31/20 06:20 Magnesium 2.3 mg/dL (1.8-2.4) 07/31/20 06:20 Total Bilirubin 1.3 mg/dL (0.2-1.0) H 07/31/20 06:20 AST 11 U/L (15-37) L 07/31/20 06:20 ALT 25 U/L (12-78) 07/31/20 06:20 Alkaline Phosphatase 65 U/L (45-117) 07/31/20 06:20 Lipase 78 U/L (73-393) 07/30/20 08:43 Home Medications: Aspirin [Aspirin EC 81 MG] 81 mg PO DAILY 04/22/16 Famotidine [Pepcid*] 20 mg PO BID 08/31/17 Losartan Potassium [Cozaar] 25 mg PO [id number] 08/31/17 Rosuvastatin Calcium 5 mg PO BEDTIME 06/12/18 Levofloxacin [Levaquin] 500 mg PO DAILY #7 tablet 08/01/20 metroNIDAZOLE [Flagyl] 500 mg PO Q8H #20 tablet 08/01/20 New Medications: metroNIDAZOLE [Flagyl] 500 mg PO Q8H #20 tablet Levofloxacin [Levaquin] 500 mg PO DAILY #7 tablet Patient Discharge Instructions: OK TO DC IV AND DC HOME. FOLLOW-UP WITH PRIMARY CARE PROVIDER IN 1-2 WEEKS. FOLLOW-UP WITH GASTROENTEROLOGY IN 1-2 WEEKS. RETURN TO THE ER IF SYMPTOMS WORSEN. CALL or TEXT DR. VELÁSQUEZ AT [phone] IF ANY QUESTIONS REGARDING HOSPITAL STAY. PLEASE CALL THE FLOOR AT [phone] IF ANY MEDICATION OR NURSING QUESTIONS. Diet: Regular Activity: Fall precautions Followup: Lamine Soto MD [ACTIVE - CAN ADMIT] - Hanh Hull DO [Primary Care Provider] - Time spent managing pt's care (in minutes): 35
[2020-08-01 08:27] VITALS: BP 124/74; TEMP 97.3
== END 2020-08-01 09:06 | disposition home or self-care (01) | DRG 392 ==
LOC: ER 07:40 → ERHOLD 11:34 → 2ND 13:06
PROVIDERS: ADMIT Hospitalist; ATTEND Hospitalist
DX: K57.32 Diverticulitis of large intestine without perforation or abscess without bleeding (principal); I25.10 Atherosclerotic heart disease of native coronary artery without angina pectoris; K21.9 Gastro-esophageal reflux disease without esophagitis; I25.2 Old myocardial infarction; Z79.82 Long term (current) use of aspirin; Z79.899 Other long term (current) drug therapy; Z88.5 Allergy status to narcotic agent; Z87.891 Personal history of nicotine dependence; Z20.828 Contact with and (suspected) exposure to other viral communicable diseases
CPT/HCPCS: 36415; 74177; 80048; 80053; 80076; 81003; 82565; 83605; 83690; 83735; 83880; 84100; 85025; 87086; 87088; 96361; 96365; 96367; 96375; 99285; J1650; J2405; J2543; J7030; Q9967; U0002

== ENCOUNTER 2020-09-18 09:12 | Emergency (ER) | payer OTHER ==
[2012-03-03 16:00] VITALS: BP 123/78
--- OUTSIDE RECORDS SUMMARY | 2020-09-18 09:15 | XMS REPORT | Clinical Summary ---
:1975 Author Organization [employer] Address [address] [place] [address] Care Team Providers Name Role Phone Hanh [...] For Pain Active Problems Not on file Encounters Date Type Specialty Care Team Description 08/11/2020 Orders Only General Surgery Alagugurusamy, Diarrhea, unspecified ROBERT Calvo type (Primary Dx) after 09/18/2019 Surgical History Surgery Date Site/Laterality Comments ABCESS DRAINAGE INGUINAL HERNIA REPAIR 03/11/2006 - Left 04/10/2006 INGUINAL HERNIA REPAIR 08/2017, 06/2018 Right REPAIR, HERNIA, 03/25/2019 Abdomen/Right Procedure: ROBOT IC ASSISTED INGUINAL, LAPAROSCOPIC, LAPAROSC OPIC RIGHT ROBOT-ASSISTED RECURRENT INGUIN AL HERNIA REPAIR WITH MESH , OPEN REMOVAL OF RIGHT INGUINAL MESH; Surgeon: Anthony Griffin MD; Loca tion: [facility] OR; Servic e: General; Laterality: [...] Health Maintenance Due Date Last Done Comments COVID-19 VACCINE (#1) 1989 INFLUENZA VACCINE 04/11/2020 Implants Implanted 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
--- OUTSIDE RECORDS SUMMARY | 2020-09-18 09:16 | XMS REPORT | Continuity of Care Document ---
:1975 Author Organization [facility] t Address [address] [place] [address] Care Team Providers Name Role Phone [place] Clotilde JACKSON Primary Care Physician Marcelo Marvin Attending Clinician Payers Payer Name Policy Type Policy Effective Date Expiration Date [facility] ce Number BCBSBCBS CHOICE [id number] 2019 [place] PPO/FEDERAL 00:00:00 Islam EMPL [id number] 2019-Presen tPPO Problems Condition Condition Condition Status Onset Resolution Last Treating Co mments Source Name Details Category Date Date Treatment Clinician Date Mixed Mixed Problem Active [facility] hyperlipid hyperlipid Sarah kes - emia emia [facility]ics Indigestio Indigestio Problem Active [facility] Right Right Problem Active [facility] inguinal inguinal [facility] - hernia hernia [facility] l [facility] Allergic Allergic Problem Active [facility] rhinitis, rhinitis, Luke s - unspecifie unspecifie Me moria d d l seasonalit seasonalit Ou tpati y, y, ent unspecifie unspecifie Cl inics d trigger d trigger History of History of Problem Active [facility] heart heart [facility] - attack attack [facility] l [facility]ics Chronic Chronic Problem Active [facility] systolic systolic [facility] - heart heart [facility] 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 depression Sarah kes - [facility] l [facility] Other Other Problem Active [facility] chronic chronic [facility] - pain pain [facility] Neuropathy Neuropathy Problem Active [facility] Diverticul Diverticul Diagnosis Active [facility] itis itis [facility] Allergies, Adverse Reactions, Alerts Allergy Allergy Status Severity Reaction(s) Onset Inactive Treating Comm ents Source Name Type Date Date Clinician eggs DA Active SV 2019-09 [facility] 10-20 [place] 00:00: [facility] [address]ine Adverse Active Info Not [facility] Reaction Available [facility] Family History Family Member Diagnosis Comments Start Date Stop Date Source Natural father No Known Problems Bud stomauro Islam Natural mother No Known Problems Bud stomauro Islam Social History Social Habit Start Date Stop Date Quantity Comments Source Sex Assigned At [facility] ethodist Tobacco use and 2019-06-20 2019-06-20 Never used [facility] ethodist exposure 00:00:00 00:00:00 Alcohol intake 2019-06-20 2019-06-20 Current drinker Vishal on Islam 00:00:00 00:00:00 of alcohol (finding) Alcohol Comment 2019-02-07 2019-02-07 Socially [facility] ethodist 00:00:00 00:00:00 History of 2009-05-10 Current smoker [facility] thodi tobacco use 00:00:00 Smoking Status Start Date Stop Date Source Former smoker 2019-06-20 00:00:00 2019-06-20 00:00:00 [facility] Medications Ordered Filled Start Stop Current Ordering Indication Dosage Frequency Signature Comments Components Source Medication Medication Date Date Medication? Clinician (SIG) Name Name Alvin Flonase 2018-09 Yes Na [place] [address] [facility] 2- each [facility] - 00:00: nostril Memoria 00 [facility] Lyrica Lyrica 2018-09 Yes Na [place] [address] -11 [facility] - 00:00: Memoria 00 [facility] esomeprazol 2018-09 Yes 20mg Q2D Take 20 mg [facility] e (NexIUM) 0-10 by mouth Metho di 20 MG 11:36: every st capsule 47 other day. ascorbic 2018-09 Yes QD Take by Jeremyto n acid/multiv 0-10 mouth Methodi it-min 11:36: daily. st (EMERGEN-C 47 IMMUNE PLUS ORAL) simethicone 2018-09 Yes 180mg Q6H Take 180 [place] (MYLICON,GA 0-10 mg by Methodi S-X) 125 mg 11:36: mouth st capsule 47 every 6 (six) hours as needed for flatulence . lidocaine 2018-09 Yes lidocaine Bud ston (XYLOCAINE) 0-10 5 % Methodi 5 % [...] tablet [facility] Meclizine Meclizine Yes Na [place] [address] [facility] HCl HCl as needed [facility] losartan losartan Yes Na [place] one tab [facility] daily [facility] Flagyl Flagyl Yes Na [place] [address] Cipro Cipro Yes Na [place] [address] Aspirin 81 Aspirin 81 Yes Na [place] [address] Prilosec Prilosec Yes Na [place] [address] OTC OTC [facility] Metronidazo Metronidazo Yes Na [place] [address] [facility] Immunizations Ordered Filled Immunization Date Status Comments [facility] e Immunization Name Name Afluria single dose Afluria single dose 2019-08-[address] [facility] Procedures This patient has no known procedures. Plan of Care Planned Activity Planned Date Details Comments Source Future Scheduled 2020-04-11 INFLUENZA VACCINE Idalia wade Islam Test 00:00:00 [code = INFLUENZA VACCINE] Future Scheduled 1989 COVID-19 VACCINE Gregorio Islam Test 00:00:00 (#1) [code = COVID-19 VACCINE (#1)] Encounters Start End Encounter Admission Attending Care Care Encounter Source Date/Time Date/Time Type Type Clinicians Facility Department ID 2020-05-02 2020-05-02 [facility] [id number] [address] 17:59:00 17:59:00 [employer] [facility] Out[facility] Clinics 2020-04-30 2020-04-30 [facility] [id number] [address] 13:40:00 13:40:00 [employer] [facility] Out[facility] Clinics 2019-11-05 2019-11-05 [facility] [id number] 16:05:00 16:05:00 [employer] s - Drive [facility] Out[facility] Clinics 2019-08-21 2019-08-21 [facility] [id number] 08:00:00 08:00:00 [employer] [facility] Out[facility] Clinics 2019-07-22 2019-07-22 [facility] [id number] 16:20:00 16:20:00 t [employer] s - Drive [facility] Out[facility] Clinics 2019-01-07 2019-01-07 [facility] [id number] 10:00:00 10:00:00 t [employer] s - Drive [facility] Out[facility] ent Clinics 2018-12-27 2018-12-27 [facility] [id number] 16:47:00 16:47:00 [employer] [facility] Medicine Medicine Outpati ent Clinics Results Test Description Test Time Test Comments Results Result Comments Source BASIC METABOLIC PANEL 2020-08-27 06:29:00 Test Item Value Reference Range Interpretation Comme nts SODIUM (test code = NA) 139 MMOL/L 136-143 N POTASSIUM (test code = K) 4.0 MMOL/L 3.5-5.1 N CHLORIDE (test code = CL) 106 MMOL/L 98-107 N CARBON DIOXIDE (test code = 25 mmol/L 24-31 N CO2) GLUCOSE (test code = GLU) 113 mg/dL 70-104 H BLOOD UREA NITROGEN (test 17.3 MG/DL 7.0-21.0 N code = BUN) GLOMERULAR FILTRATION RATE >=60 max estimate >60 The estimated glomerular (test code = GFR) filtration rate is computed usingpatient ra ce, age (>18), sex, and serum creatinine. If anyof the neede d data elements are mi ssing the Laboratory oneil ot compute an estimation of t he glomerular filtration rate . CREATININE (test code = 0.8 mg/dL 0.8-1.5 N CREAT) CALCIUM (test code = CA) 8.4 mg/dL 8.8-10.2 L [id number] 06:29:00 Test Item Value Reference Range Interpretation Comments MAGNESIUM (test code = MAG) 2.1 mg/dL 1.4-2.6 N CBC W/AUTO [id number] 05:39:00 Test Item Value Reference Range Interpretation Comments WHITE BLOOD CELL (test code = 13.0 x10 3/uL 4.8-10.8 H WBC) RED BLOOD CELL (test code = 4.14 x10 6/uL 4.70-6.10 L RBC) HEMOGLOBIN (test code = HGB) 12.3 g/dL 14.5-20 L HEMATOCRIT (test code = HCT) 38.3 % 42.0-52.0 L MEAN CELL VOLUME (test code = 92.5 fL 80.0-94.0 N MCV) MEAN CELL HGB (test code = MCH) 29.7 pg 27-31 N MEAN CELL HGB CONCENTRATION 32.1 G/DL 33-36.5 L (test code = MCHC) RED CELL DISTRIBUTION WIDTH 13.8 % 12.9-16.9 N (test code = RDW) PLATELET COUNT (test code = 215 150-440 N PLT) MEAN PLATELET VOLUME (test code 8.6 fL 8.9-12.4 L = MPV) NEUTROPHIL % (test code = NT%) 65.7 % 42.2-75.2 N LYMPHOCYTE % (test code = LY%) 21.7 % 20.5-51.1 N MONOCYTE % (test code = MO%) 9.6 % 1.7-9.3 H EOSINOPHIL % (test code = EO%) 2.1 % 0.0-7.0 N BASOPHIL % (test code = BA%) 0.6 % 0-2.5 N NEUTROPHIL # (test code = NT#) 8.56 x10 3/uL 1.80-7.70 H LYMPHOCYTE # (test code = LY#) 2.83 x10 3/uL 1.00-4.80 N MONOCYTE # (test code = MO#) 1.25 x10 3/uL 0.00-0.80 H EOSINOPHIL # (test code = EO#) 0.27 x10 3/uL 0.00-0.45 N BASOPHIL # (test code = BA#) 0.08 x10 3/uL 0.0-0.20 N SURGICAL [id number] 15:39:00 Test Item Value Reference Range Interpretation Comments SURGICAL SPECIMENS (test code = SURG) RUN DATE: 08/26/20 [facility] - LAB PAGE 1 RUN TIME: 1539 Specimen Inquiry RUN USER: INTERFACE PATIENT: VALERI BENJAMIN LOC: P.6S POD B U #: [id number] AGE/SX: 45/M ROOM: [facility] RE08/25/20REG DR: Pwaan Baum MD : 71 BED: 1 DIS: STATUS: ADM IN TLOC: SPEC #: [id number] RECD: 08/25/20 STATUS: NIMA REQ #: [id number] MUSTAPHA: 08/25/[address]: Pawan Baum MD ENTERED: 08/25/20 SP TYPE: SURG OTHR DR: Boo Olsen CO Hanh Blanc DOORDERED: PATHGM5, PATH SPEC, H E STAIN HISTOLOGY: TISSUE ID BLK PCS DONNA LEV / PROCEDURE DISPOSITION ____ ___ ___ ___ ___ COLON SEG NTUMR A 5 1 TISSUES: A. COLON SEGMENTAL [id number] - Sigmoid Colon CLINICAL HISTORY Diverticulitis FINAL DIAGNOSIS SIGMOID COLON, RESECTION: -ACUTE DIVERTICULITIS WITH MICROSCOPIC PERFORATIONS AND ORGANIZING ABSCESS -ONE BENIGN LYMPH NODE -SEROSAL ADHESIONS -NO DYSPLASIA OR MALIGNANCY IS IDENTIFIED CPT 06890 GROSS DESCRIPTION Received in formalin labeled with the patient's name (Sourav), date of , and "sigmoid colon" is a 19.7 cm long bowel resection specimen measuring up to 1.7 cm in diameter. There is a moderate amount of pericolonic adipose tissue, partially disrupted. The enteric resection edges are received without mary, exposing mucosa. Sectioning the specimen reveals unremarkable valderrama mucosal folds with no polyps or other mass lesions. On sectioning, an area of purulent material within the fat appears near one of the resection margin (possible diverticulum). No gross perforation is noted. The bowel wall does not appear thickened. Stack Yield Engineer sections are submitted: A1-A2, bowel resection margins; A3, possible diverticulum with abscess; A4, possible diverticula; A5, remainder of colon, billing representative. CM/ta. Signed SIGNATURE ON FILE Sangita Arnett MD 08/26/20 1539 END OF REPORT CBC W/MANUAL [id number] 08:31:00 Test Item Value Reference Range Interpretation Comments WHITE BLOOD CELL (test code = 18.6 x10 3/uL 4.8-10.8 H WBC) RED BLOOD CELL (test code = 4.56 x10 6/uL 4.70-6.10 L RBC) HEMOGLOBIN (test code = HGB) 14.0 g/dL 14.5-20 L HEMATOCRIT (test code = HCT) 41.2 % 42.0-52.0 L MEAN CELL VOLUME (test code = 90.4 fL 80.0-94.0 N MCV) MEAN CELL HGB (test code = 30.7 pg 27-31 N MCH) MEAN CELL HGB CONCENTRATION 34.0 G/DL 33-36.5 N (test code = MCHC) RED CELL DISTRIBUTION WIDTH 13.7 % 12.9-16.9 N (test code = RDW) PLATELET COUNT (test code = 254 150-440 N PLT) MEAN PLATELET VOLUME (test 8.8 fL 8.9-12.4 L code = MPV) NEUTROPHIL % (test code = NT%) 75.9 % 42.2-75.2 H LYMPHOCYTE % (test code = LY%) 13.8 % 20.5-51.1 L MONOCYTE % (test code = MO%) 9.6 % 1.7-9.3 H EOSINOPHIL % (test code = EO%) 0.0 % 0.0-7.0 N BASOPHIL % (test code = BA%) 0.2 % 0-2.5 N NEUTROPHIL # (test code = NT#) 14.09 x10 3/uL 1.80-7.70 H LYMPHOCYTE # (test code = LY#) 2.57 x10 3/uL 1.00-4.80 N MONOCYTE # (test code = MO#) 1.78 x10 3/uL 0.00-0.80 H EOSINOPHIL # (test code = EO#) 0.00 x10 3/uL 0.00-0.45 N BASOPHIL # (test code = BA#) 0.04 x10 3/uL 0.0-0.20 N TOTAL CELLS COUNTED (test code 100 #CELLS = TCC) SEGMENTED NEUTROPHILS (test 80 % 49-71 H code = SEG) LYMPHOCYTE (test code = LYMPH) 11 % 20-40 L MONOCYTE (test code = MON) 9 % 3-8 H PLATELET MORPHOLOGY (test code NORMAL NORMAL = PLTMORPH) BASIC METABOLIC [id number] 06:27:00 Test Item Value Reference Range Interpretation Comments SODIUM (test code 138 MMOL/L 136-143 N = NA) POTASSIUM (test 4.3 MMOL/L 3.5-5.1 N code = K) CHLORIDE (test 103 MMOL/L 98-107 N code = CL) CARBON DIOXIDE 26 mmol/L 24-31 N (test code = CO2) GLUCOSE (test code 113 mg/dL 70-104 H = GLU) BLOOD UREA 17.6 MG/DL 7.0-21.0 N NITROGEN (test code = BUN) GLOMERULAR >=60 max >60 The estimated FILTRATION RATE estimate glomerular (test code = GFR) filtration rate is computed usingpatient ra ce, age (>18), sex, and serum creatinin e. If anyof the neede d data elements a re missing the Laboratory oneil ot compute an estimation of t he glomerular filtration rate . CREATININE (test 0.8 mg/dL 0.8-1.5 N code = CREAT) CALCIUM (test code 8.9 mg/dL 8.8-10.2 N = CA) [id number] 06:27:00 Test Item Value Reference Range Interpretation Comments MAGNESIUM (test code = MAG) 2.1 mg/dL 1.4-2.6 N CBC W/MANUAL [id number] 06:21:00 Test Item Value Reference Range Interpretation Comments WHITE BLOOD CELL (test code = 18.6 x10 3/uL 4.8-10.8 H WBC) RED BLOOD CELL (test code = 4.56 x10 6/uL 4.70-6.10 L RBC) HEMOGLOBIN (test code = HGB) 14.0 g/dL 14.5-20 L HEMATOCRIT (test code = HCT) 41.2 % 42.0-52.0 L MEAN CELL VOLUME (test code = 90.4 fL 80.0-94.0 N MCV) MEAN CELL HGB (test code = 30.7 pg 27-31 N MCH) MEAN CELL HGB CONCENTRATION 34.0 G/DL 33-36.5 N (test code = MCHC) RED CELL DISTRIBUTION WIDTH 13.7 % 12.9-16.9 N (test code = RDW) PLATELET COUNT (test code = 254 150-440 N PLT) MEAN PLATELET VOLUME (test 8.8 fL 8.9-12.4 L code = MPV) NEUTROPHIL % (test code = NT%) 75.9 % 42.2-75.2 H LYMPHOCYTE % (test code = LY%) 13.8 % 20.5-51.1 L MONOCYTE % (test code = MO%) 9.6 % 1.7-9.3 H EOSINOPHIL % (test code = EO%) 0.0 % 0.0-7.0 N BASOPHIL % (test code = BA%) 0.2 % 0-2.5 N NEUTROPHIL # (test code = NT#) 14.09 x10 3/uL 1.80-7.70 H LYMPHOCYTE # (test code = LY#) 2.57 x10 3/uL 1.00-4.80 N MONOCYTE # (test code = MO#) 1.78 x10 3/uL 0.00-0.80 H EOSINOPHIL # (test code = EO#) 0.00 x10 3/uL 0.00-0.45 N BASOPHIL # (test code = BA#) 0.04 x10 3/uL 0.0-0.20 N TOTAL CELLS COUNTED (test code #CELLS = TCC) SEGMENTED NEUTROPHILS (test % 49-71 code = SEG) LYMPHOCYTE (test code = LYMPH) % 20-40 Novel Coronavirus 2018 [id number] 11:11:00 Test Item Value Reference Range Interpretation Comments Novel Coronavirus Not Detected Not Detected Testing wa s performed 2018 Inhouse (test using the [employer]ptima code = COVNONPUI) SARS-CoV-2 assay.This nucleic acid amplification t est was developed and itsperformance characteristics determined by [facility]. Nucleic acid amplification t ests include PCRand TMA. This test has not be en FDA cleared or appr juan.This test has been a uthorized by FDA under an Emergency UseAuthorizatio n (EUA). This test is on ly authorized fort he duration of estella e the declaration quynh t circumstancesex ist justifying the authorization o f the emergency use o fin vitro diagnostic test s for detection of SA RS-CoV-2 virusand/or shruthi gnosis of COVID-19 infect ion under (b)(1 ) of the Act, 21 U.S.C. 360bbb-3(b) (1) , unless theauthorizatio n is terminated or r evoked sooner.When shruthi gnostic testing is nega tive, the possibility of afalse negative result should be considered i n the contextof a pat ient's recent exposure s and the presence ofclin ical signs and sympt oms consistent with COVID-19. Anind ividual without symptom s of COVID-19 and wh o is notshedding GUS S-CoV-2 virus would exp ect to have a negative (not detected) resul t in this assay.Performed At: [facility] [address] [id number] brooklyn Catalan MD Ph:[phone] COMPREHENSIVE METABOLIC [id number] 13:25:00 Test Item Value Reference Range Interpretation Comments SODIUM (test code = 138 MMOL/L 136-143 N NA) POTASSIUM (test 4.7 MMOL/L 3.5-5.1 N code = K) CHLORIDE (test code 102 MMOL/L 98-107 N = CL) CARBON DIOXIDE 29 mmol/L 24-31 N (test code = CO2) GLUCOSE (test code 107 mg/dL 70-104 H = GLU) BLOOD UREA NITROGEN 17.5 MG/DL 7.0-21.0 N (test code = BUN) GLOMERULAR >=60 max >60 The estimated FILTRATION RATE estimate glomerular (test code = GFR) filtration rate is computed usingpatient ra ce, age (>18), sex, and serum creatinin e. If anyof the ne eded data elements a re missing the Laboratory oneil ot compute an estimation of t he glomerular filtration rate . CREATININE (test 0.8 mg/dL 0.8-1.5 N code = CREAT) TOTAL PROTEIN (test 8.2 g/dL 6.3-8.3 N code = PROT) ALBUMIN (test code 4.6 G/DL 3.5-5.0 N = ALB) CALCIUM (test code 9.7 mg/dL 8.8-10.2 N = CA) BILIRUBIN TOTAL 0.6 mg/dL 0.2-1.0 N (test code = BILT) SGOT/AST (test code 24 IU/L 10-34 N = AST) SGPT/ALT (test code 38 U/L 10-44 N = ALT) ALKALINE 69 U/L 45-120 N PHOSPHATASE (test code = ALKP) [id number] 13:25:00 Test Item Value Reference Range Interpretation Comments PREALBUMIN (test code = PREALB) 27.6 MG/ML 15-42 N COMPREHENSIVE METABOLIC [id number] 11:55:00 Test Item Value Reference Range Interpretation Comments SODIUM (test code = 138 MMOL/L 136-143 N NA) POTASSIUM (test 4.7 MMOL/L 3.5-5.1 N code = K) CHLORIDE (test code 102 MMOL/L 98-107 N = CL) CARBON DIOXIDE 29 mmol/L 24-31 N (test code = CO2) GLUCOSE (test code 107 mg/dL 70-104 H = GLU) BLOOD UREA NITROGEN 17.5 MG/DL 7.0-21.0 N (test code = BUN) GLOMERULAR >=60 max >60 The estimated FILTRATION RATE estimate glomerular (test code = GFR) filtration rate is computed usingpatient ra ce, age (>18), sex, and serum creatinin e. If anyof the ne eded data elements a re missing the Laboratory oneil ot compute an estimation of t he glomerular filtration rate . CREATININE (test 0.8 mg/dL 0.8-1.5 N code = CREAT) TOTAL PROTEIN (test 8.2 g/dL 6.3-8.3 N code = PROT) ALBUMIN (test code 4.6 G/DL 3.5-5.0 N = ALB) CALCIUM (test code 9.7 mg/dL 8.8-10.2 N = CA) BILIRUBIN TOTAL 0.6 mg/dL 0.2-1.0 N (test code = BILT) SGOT/AST (test code 24 IU/L 10-34 N = AST) SGPT/ALT (test code 38 U/L 10-44 N = ALT) ALKALINE 69 U/L 45-120 N PHOSPHATASE (test code = ALKP) [id number] 11:55:00 Test Item Value Reference Range Interpretation Comments PREALBUMIN (test code = PREALB) MG/ML 15-42 CBC W/AUTO [id number] 09:26:00 Test Item Value Reference Range Interpretation Comments WHITE BLOOD CELL (test code = 9.0 x10 3/uL 4.8-10.8 N WBC) RED BLOOD CELL (test code = 4.95 x10 6/uL 4.70-6.10 N RBC) HEMOGLOBIN (test code = HGB) 14.9 g/dL 14.5-20 N HEMATOCRIT (test code = HCT) 45.3 % 42.0-52.0 N MEAN CELL VOLUME (test code = 91.5 fL 80.0-94.0 N MCV) MEAN CELL HGB (test code = MCH) 30.1 pg 27-31 N MEAN CELL HGB CONCENTRATION 32.9 G/DL 33-36.5 L (test code = MCHC) RED CELL DISTRIBUTION WIDTH 13.5 % 12.9-16.9 N (test code = RDW) PLATELET COUNT (test code = 355 150-440 N PLT) MEAN PLATELET VOLUME (test code 8.5 fL 8.9-12.4 L = MPV) NEUTROPHIL % (test code = NT%) 57.1 % 42.2-75.2 N LYMPHOCYTE % (test code = LY%) 30.7 % 20.5-51.1 N MONOCYTE % (test code = MO%) 8.5 % 1.7-9.3 N EOSINOPHIL % (test code = EO%) 2.4 % 0.0-7.0 N BASOPHIL % (test code = BA%) 1.1 % 0-2.5 N NEUTROPHIL # (test code = NT#) 5.13 x10 3/uL 1.80-7.70 N LYMPHOCYTE # (test code = LY#) 2.76 x10 3/uL 1.00-4.80 N MONOCYTE # (test code = MO#) 0.76 x10 3/uL 0.00-0.80 N EOSINOPHIL # (test code = EO#) 0.22 x10 3/uL 0.00-0.45 N BASOPHIL # (test code = BA#) 0.10 x10 3/uL 0.0-0.20 N PROTHROMBIN [id number] 09:26:00 Test Item Value Reference Range Interpretation Comments PROTHROMBIN TIME 11.3 SECONDS 10.3-12.9 N PATIENT (test code = PTP) INTERNATIONAL 1.00 INR UNIT 0.9-1.11 N The INR is us eful only NORMAL RATIO (test for monit oring code = INR) anticoagulant therapy.It may be unreliable in t he initial phase o f antigoagulation and in unstable patien ts. Indication for Anticoagulation Recommend ed INR 1. Prevention o f venous thomboembolism 2.0-3.0in high -risk patients; treat ment of venousthrombosi s and pulmonary embol ism aftera course o f heparin; preven tion of systemicembolis m in a variety of cond itions, including atria l fibrillation an d prothetic tissu e heart valves, 2. Pros thetic mechanical hear t valves; 2.5-3.5recurren t systemic emboli sm. THROMBOPLASTIN TIME [id number] 09:26:00 Test Item Value Reference Range Interpretation Comments THROMBOPLASTIN TIME 27.8 SECONDS 23.8-34.8 N INTERPRE TATIVE PARTIAL (test code = DATA: erapeutic PTT) range: Unfractionated heparin:55 - 80 seconds Argatroban:1.5 to 3 times the basel ine PTT
[2020-09-18 12:02] LABS: Absolute Lymphocytes (CBC) 2.4 K/uL (0.7-4.9); Basophils % 0.8 % (0-1.3); Hematocrit 39.5 % (39.6-49.0); Lymphocytes % 13.1 % (15.3-44.8); MPV 6.4 fL (7.6-11.3); RBC Red Blood Cell Count 4.54 M/uL (4.33-5.43)
[2020-09-18 12:21] LABS: Albumin 3.5 g/dL (3.4-5.0); Bilirubin Direct 0.2 mg/dL (0-0.2); Bilirubin Total 0.9 mg/dL (0.2-1.0); Potassium 3.9 mmol/L (3.5-5.1); Protein, Total 8.9 g/dL (6.4-8.2)
[2020-09-18] MEDS ORDERED: MORPHINE 4 MG/ML SYR ONE ×3 (12:36→17:36)
[2020-09-18] MEDS ORDERED: ONDANSETRON 4 MG/2 ML VIAL ONE ×2 (12:36→17:37)
--- NOTE | 2020-09-18 13:08 | RAD REPORT ---
EXAM DESCRIPTION: CT - Abdomen Pelvis W Contrast - 09/18/2020 12:43 pm CLINICAL HISTORY: ABD PAIN COMPARISON: Abdomen Pelvis W Contrast dated 07/30/2020 TECHNIQUE: Biphasic, helical CT imaging of the abdomen and pelvis was performed following 100 ml non -ionic IV contrast. No oral contrast administered. All CT scans are performed using dose optimization technique as appropriate and may include automated exposure control or mA/KV adjustment according to patient size. FINDINGS: No suspicious findings in the lung bases. Liver shows diffuse fatty infiltration with no focal liver lesions. No portal vein abnormality. Splee n and pancreas show no suspicious findings. Gallbladder and biliary tree are also without suspicious finding. Symmetric renal function is seen with no hydronephrosis or suspicious renal mass. No pyelonephritis o r acute parenchymal process. No bladder abnormalities. No new adrenal abnormalities. No gastric dilatation or wall thickening. No acute small bowel findings. Colon from cecum through tahir cending colon shows no significant finding. There is a 6 centimeter long segment of the rectosigmoid junction that shows irregular circumferential wall thickening. Patient has diverticulosis in this reg ion. There is edematous/ inflammatory stranding in the adjacent fat. Several small extraluminal free air collections are present adjacent to the involved colon. A 5 x 3 centimeter fluid collection has d eveloped in the dependent portion of the pelvis between the rectum and seminal vesicles. No distant f ree air is present. No pneumatosis or other site of inflammatory stranding. Small fat only umbilical hernia present. No omental thickening or mass. No suspicious bony findings. IMPRESSION: Acute diverticulitis of the rectosigmoid junction with contained perforation showing sma ll amounts of free air and fluid in the fat adjacent to the involved colon. No distant free air. A 5 x 3 centimeter fluid collection in the dependent portion the pelvis may be reactive fluid or deve loping abscess. This needs monitoring over the course of medical management.
--- NOTE | 2020-09-18 13:45 | EDPHYS ---
Physician Documentation [facility] Name: Xiomara Haro Age: 45 yrs Sex: Male : 1975 Arrival Date: 09/18/2020 Time: 09:15 Bed 14 Private MD: Hanh Hull ED Physician Billy Robledo HPI: 09/18 13:36 This 45 yrs old Male presents to ER via Ambulatory with complaints of jr8 Abdominal Problem, Abdominal Pain. 13:36 The patient presents with abdominal pain. Onset: The symptoms/episode began/occurred jr8 gradually, 2 day(s) ago. The symptoms do not radiate. Associated signs and symptoms: Pertinent positives: diarrhea. The symptoms are described as constant, crampy. Modifying factors: The symptoms are alleviated by nothing, the symptoms are aggravated by nothing. Severity of pain: At its worst the pain was moderate in the emergency department the pain is unchanged. It is unknown whether or not the patient has had similar symptoms in the past. The patient has not recently seen a physician. Patient stated that he had laproscopic partial colon resection about 3 weeks ago for acute diverticulitis. Stated that he has been doing very well since then. About 2 days ago started with lower abdominal pain with rectal pressure and mucoid stool . Historical: - Allergies: 10:10 No Known Allergies; ss - PMHx: 10:10 Myocardial infarction; Diverticulitis; ss - PSHx: 10:10 Hernia repair; colectomy; ss - Immunization history:: Adult Immunizations up to date. - Social history:: Smoking status: Patient denies any tobacco usage or history of. ROS: 13:36 Eyes: Negative for injury, pain, redness, and discharge, ENT: Negative for injury, jr8 pain, and discharge, Neck: Negative for injury, pain, and swelling, Cardiovascular: Negative for chest pain, palpitations, and edema, Respiratory: Negative for shortness of breath, cough, wheezing, and pleuritic chest pain, Back: Negative for injury and pain, MS/Extremity: Negative for injury and deformity, Skin: Negative for injury, rash, and discoloration, Neuro: Negative for headache, weakness, numbness, tingling, and seizure. 13:36 Abdomen/GI: Positive for abdominal pain, nausea, diarrhea. Exam: 13:36 Eyes: Pupils equal round and reactive to light, extra-ocular motions intact. Lids and jr8 lashes normal. Conjunctiva and sclera are non-icteric and not injected. Cornea within normal limits. Periorbital areas with no swelling, redness, or edema. ENT: Nares patent. No nasal discharge, no septal abnormalities noted. Tympanic membranes are normal and external auditory canals are clear. Oropharynx with no redness, swelling, or masses, exudates, or evidence of obstruction, uvula midline. Mucous membranes moist. Neck: Trachea midline, no thyromegaly or masses palpated, and no cervical lymphadenopathy. Supple, full range of motion without nuchal rigidity, or vertebral point tenderness. No Meningismus. Cardiovascular: Regular rate and rhythm with a normal S1 and S2. No gallops, murmurs, or rubs. Normal PMI, no JVD. No pulse deficits. Respiratory: Lungs have equal breath sounds bilaterally, clear to auscultation and percussion. No rales, rhonchi or wheezes noted. No increased work of breathing, no retractions or nasal flaring. Back: No spinal tenderness. No costovertebral tenderness. Full range of motion. Skin: Warm, dry with normal turgor. Normal color with no rashes, no lesions, and no evidence of cellulitis. MS/ Extremity: Pulses equal, no cyanosis. Neurovascular intact. Full, normal range of motion. Neuro: Awake and alert, GCS 15, oriented to person, place, time, and situation. Cranial nerves II-XII grossly intact. Motor strength 5/5 in all extremities. Sensory grossly intact. Cerebellar exam normal. Normal gait. 13:36 Abdomen/GI: Inspection: abdomen appears normal, Bowel sounds: diminished, in all quadrants, Palpation: soft, in all quadrants, moderate abdominal tenderness, in the suprapubic area, right lower quadrant and left lower quadrant, mass, is not appreciated, rebound tenderness, is not appreciated, voluntary guarding, is not appreciated, involuntary guarding, is not appreciated, no appreciated organomegaly, Rectal exam: Prostate: normal, rectal tone normal, Stool: normal, brown, hemorrhoid(s), are not appreciated, tenderness, that is mild, Indicators: McBurney's point is not tender, Dawn's sign is negative, Rovsing's sign is negative, Liver: tenderness, is not appreciated. Vital Signs: 10:08 BP 120 / 73; Pulse 105; Resp 18; Temp 98.8(TE); Pulse Ox 100% on R/A; Pain 10/10; ss 12:30 BP 115 / 84; Pulse 92; Resp 16 S; Pulse Ox 99% on R/A; ec1 13:30 BP 109 / 71; Pulse 101; Resp 16 S; Pulse Ox 99% on R/A; Pain 2/10; ec1 15:11 BP 112 / 84; Pulse 101; Resp 16 S; Pulse Ox 100% on R/A; Pain 9/10; ec1 16:00 BP 96 / 63; Pulse 102; Resp 16 S; Pulse Ox 96% on R/A; ec1 17:00 BP 108 / 82; Pulse 97; Resp 16 S; Pulse Ox 96% on R/A; ec1 MDM: 11:38 Patient medically screened. jr8 13:36 Data reviewed: vital signs, nurses notes, lab test result(s), radiologic studies, CT jr8 scan. Data interpreted: Pulse oximetry: on room air is 99 %. Interpretation: normal. Counseling: I had a detailed discussion with the patient and/or guardian regarding: the historical points, exam findings, and any diagnostic results supporting the discharge/admit diagnosis, lab results, radiology results. ED course: Spoke with Dr. Pawan Baum who wants patient transferred to [facility] for further evaluation and possible IR intervention. Starting him on Invanz per his request also. . 09/18 11:38 Order name: Basic Metabolic Panel; Complete Time: 13:22 [facility] 09/18 11:38 Order name: CBC with Diff; Complete Time: 12:15 09/18 11:38 Order name: Hepatic Function; Complete Time: 13:22 09/18 11:38 Order name: Lipase; Complete Time: 13:22 8 09/18 15:56 Order name: SARS-COV-2 RT PCR; Complete Time: 16:31 EDMT 09/18 12:14 Order name: CT Abd/Pelvis - IV Contrast Only; Complete Time: 13:22 8 09/18 11:38 Order name: IV Saline Lock; Complete Time: 12:00 8 09/18 11:38 Order name: Labs collected and sent; Complete Time: 12:00 09/18 13:45 Order name: NPO; Complete Time: 13:57 jr8 Administered Medications: 12:58 Drug: Zofran (Ondansetron) 4 mg Route: IVP; Site: right antecubital; ec1 14:04 Follow up: Response: No adverse reaction ec1 12:59 Drug: morphine 4 mg Route: IVP; Site: right antecubital; ec1 14:04 Follow up: Response: Pain is decreased ec1 13:32 Not Given (Physician Discretion): Zosyn 3.375 grams IVPB once over 60 mins; (mix in NS jr8 100 mL) 13:57 Drug: NS 0.9% 1000 ml Route: IV; Rate: 100 ml/hr; Site: right antecubital; ec1 17:33 Follow up: IV Status: Infusion continued upon transfer ec1 14:28 Drug: InvANZ 1 grams Route: IVPB; Infused Over: 30 mins; Site: right antecubital; ec1 14:57 Follow up: Response: No adverse reaction; IV Status: Completed infusion ec1 15:00 Follow up: IV Status: Completed infusion ec1 15:10 Drug: morphine 4 mg Route: IVP; Site: right antecubital; ec1 15:30 Follow up: Response: No adverse reaction ec1 17:29 Drug: morphine 4 mg Route: IVP; Site: right antecubital; ec1 17:34 Follow up: Response: No adverse reaction ec1 17:29 Drug: Zofran (Ondansetron) 4 mg Route: IVP; Site: right antecubital; ec1 17:35 Follow up: Response: No adverse reaction ec1 Disposition: 18:36 Co-signature as Attending Physician, Billy Robledo MD. rn Disposition: 09/18/20 13:45 Transfer ordered to Other Acute Care Facility. Diagnosis is Diverticulitis of large intestine with perforation and abscess without bleeding. - Reason for transfer: Higher level of care. - Accepting physician is Dr. Pawan Baum. - Condition is Stable. - Problem is new. - Symptoms have improved. Signatures: Dispatcher [employer] EDMS Billy Robledo MD MD rn Smirch, Shelby, RN RN ss Roszak, Josh, SINGH PA jr8 Janine Langston RN RN ec1 Corrections: (The following items were deleted from the chart) 14:53 14:13 CORONAVIRUS+LAB.BRZ ordered. EDMS EDMS 17:43 13:45 09/18/2020 13:45 Transfer ordered to Other Acute Care Facility. Diagnosis is ec1 Diverticulitis of large intestine with perforation and abscess without bleeding. Reason for transfer: Higher level of care. Accepting physician is Dr. Pawan Baum. Condition is Stable. Problem is new. Symptoms have improved. jr8
--- NOTE | 2020-09-18 13:45 | ER ---
Nurse's Notes [facility] Name: Xiomara Haro Age: 45 yrs Sex: Male : 1975 Arrival Date: 09/18/2020 Time: 09:15 Bed 14 Private MD: Hanh Hull Diagnosis: Diverticulitis of large intestine with perforation and abscess without bleeding Presentation: 09/18 10:08 Chief complaint: Patient states: generalized abd cramping and rectal pain/ pressure ss that began 3 days ago. Pt reports because of diverticulitis, he had a colectomy on 08/25. Coronavirus screen: Client denies travel out of the [place] in the last 14 days. Ebola Screen: Patient denies exposure to infectious person. Patient denies travel to an Ebola-affected area in the 21 days before illness onset. Initial Sepsis Screen: Does the patient meet any 2 criteria? HR > 90 bpm. Does the patient have a suspected source of infection? No. Patient's initial sepsis screen is negative. Risk Assessment: Do you want to hurt yourself or someone else? Patient reports no desire to harm self or others. Onset of symptoms was September 15, 2020. 10:08 Method Of Arrival: Ambulatory ss 10:08 Acuity: DULCE 3 ss Historical: - Allergies: 10:10 No Known Allergies; ss - PMHx: 10:10 Myocardial infarction; Diverticulitis; ss - PSHx: 10:10 Hernia repair; colectomy; ss - Immunization history:: Adult Immunizations up to date. - Social history:: Smoking status: Patient denies any tobacco usage or history of. Screenin:57 Abuse screen: Denies threats or abuse. Denies injuries from another. Nutritional ec1 screening: No deficits noted. Tuberculosis screening: No symptoms or risk factors identified. Fall Risk No fall in past 12 months (0 pts). Secondary diagnosis (15 points) IV access (20 points). Ambulatory Aid- None/Bed Rest/Nurse Assist (0 pts). Gait- Normal/Bed Rest/Wheelchair (0 pts) Mental Status- Oriented to own ability (0 pts). Assessment: 12:57 General: Appears in no apparent distress. comfortable, Behavior is calm, cooperative. ec1 Pain: Complains of pain in lower abdomen. Neuro: Level of Consciousness is awake, alert, obeys commands. Cardiovascular: Patient's skin is warm and dry. Respiratory: Airway is patent Respiratory effort is even, unlabored. GI: Abdomen is round Bowel sounds present X 4 quads. hyperactive in right lower quadrant and left lower quadrant Abd is soft X 4 quads Abdomen is tender to palpation in right lower quadrant and left lower quadrant Reports lower abdominal pain, constipation, Patient currently denies diarrhea, vomiting. : No signs and/or symptoms were reported regarding the genitourinary system. EENT: No signs and/or symptoms were reported regarding the EENT system. Derm: No signs and/or symptoms reported regarding the dermatologic system. Musculoskeletal: No signs and/or symptoms reported regarding the musculoskeletal system. 14:03 Reassessment: Patient appears in no apparent distress at this time. No changes from ec1 previously documented assessment. Patient and/or family updated on plan of care and expected duration. Pain level reassessed. 17:19 Reassessment: Patient appears in no apparent distress at this time. Patient and/or ec1 family updated on plan of care and expected duration. Pain level reassessed. Pt resting in beds laying on left side. Reporting pain, SINGH Maher notified. Vital Signs: 10:08 BP 120 / 73; Pulse 105; Resp 18; Temp 98.8(TE); Pulse Ox 100% on R/A; Pain 10/10; ss 12:30 BP 115 / 84; Pulse 92; Resp 16 S; Pulse Ox 99% on R/A; ec1 13:30 BP 109 / 71; Pulse 101; Resp 16 S; Pulse Ox 99% on R/A; Pain 2/10; ec1 15:11 BP 112 / 84; Pulse 101; Resp 16 S; Pulse Ox 100% on R/A; Pain 9/10; ec1 16:00 BP 96 / 63; Pulse 102; Resp 16 S; Pulse Ox 96% on R/A; ec1 17:00 BP 108 / 82; Pulse 97; Resp 16 S; Pulse Ox 96% on R/A; ec1 ED Course: 09:15 Patient arrived in ED. ag5 09:16 Hanh Hull MD is Private Physician. ag5 10:09 Triage completed. ss 10:10 Arm band placed on right wrist. ss 11:38 Patricio Maher PA is PSYCHIATRICP. jr8 11:38 Billy Robledo MD is Attending Physician. jr8 11:44 Janine Langston, RN is Primary Nurse. ec1 11:53 Initial lab(s) drawn, by me, sent to lab. Inserted saline lock: 20 gauge in right dh3 antecubital area, using aseptic technique. Blood collected. 12:42 CT Abd/Pelvis - IV Contrast Only In Process Unspecified. EDMS 12:57 Patient has correct armband on for positive identification. Placed in gown. Bed in low ec1 position. 13:46 initiated a transfer with Goldie from the [facility] Transfer Center. eb 14:01 initiated a transfer with the [facility] transfer center. eb 14:26 connected the MANAGER TRANSIT from [facility] also known as Francisca Pfeiffer. eb 14:55 administrative approval given by [facility]/ patient has been accepted to [facility]/ patient is to go to the [facility] admitting where they will get the room assignment/ Dr. Pawan Baum has accepted the patient in transfer/ report to be called to [phone]. 14:55 COVID swab sent to lab. em1 15:49 Report given to Deborah Wong RN at [facility]. ec1 17:31 Report given to Report given to [facility] EMS director account management- Medic 57. ec1 Administered Medications: 12:58 Drug: Zofran (Ondansetron) 4 mg Route: IVP; Site: right antecubital; ec1 14:04 Follow up: Response: No adverse reaction ec1 12:59 Drug: morphine 4 mg Route: IVP; Site: right antecubital; ec1 14:04 Follow up: Response: Pain is decreased ec1 13:32 Not Given (Physician Discretion): Zosyn 3.375 grams IVPB once over 60 mins; (mix in NS jr8 100 mL) 13:57 Drug: NS 0.9% 1000 ml Route: IV; Rate: 100 ml/hr; Site: right antecubital; ec1 17:33 Follow up: IV Status: Infusion continued upon transfer ec1 14:28 Drug: InvANZ 1 grams Route: IVPB; Infused Over: 30 mins; Site: right antecubital; ec1 14:57 Follow up: Response: No adverse reaction; IV Status: Completed infusion ec1 15:00 Follow up: IV Status: Completed infusion ec1 15:10 Drug: morphine 4 mg Route: IVP; Site: right antecubital; ec1 15:30 Follow up: Response: No adverse reaction ec1 17:29 Drug: morphine 4 mg Route: IVP; Site: right antecubital; ec1 17:34 Follow up: Response: No adverse reaction ec1 17:29 Drug: Zofran (Ondansetron) 4 mg Route: IVP; Site: right antecubital; ec1 17:35 Follow up: Response: No adverse reaction ec1 Outcome: 13:45 ER care complete, transfer ordered by MD. marie 17:43 Patient left the ED. ec1 Signatures: Dispatcher [employer] Pawan Coronado em1 Mayra Bolivar RN RN Patricio Vee PA PA [facility] 3 Bela Guerra Ajare [facility] Janine Langston RN RN ec1
[2020-09-18] MEDS ORDERED: ERTAPENEM NA 1 GM in NA CHLORIDE 0.9% 100 ML IVPB ONE (14:00)
== END 2020-09-18 17:43 ==
LOC: ER 09:12
DX: K57.20 Diverticulitis of large intestine with perforation and abscess without bleeding (principal); Z20.822 Contact with and (suspected) exposure to COVID-19
CPT/HCPCS: 96365; 96361; 85025; 80048; 36415; 80076; 83690; 74177; 96375; 99284; U0003; Q9967; J1335; J2405 ×2

== ENCOUNTER 2021-05-05 18:55 | Emergency (ER) | payer OTHER ==
--- OUTSIDE RECORDS SUMMARY | 2021-05-05 18:59 | XMS REPORT | Continuity of Care Document ---
:1975 Author Organization [facility] t Address [address] [place] [address] Care Team Providers Name Role Phone Della JACKSON Clotilde Primary Care Physician Marcelo Marvin Attending Clinician [phone] Payers Payer Name Policy Type Policy Effective Date Expiration Date Sour ce Number BCBSBCBS CHOICE [id number] PPO/FEDERAL 00:00:00 Hospital EMPL [id number] 2019-Presen tPPO Problems This patient has no known problems. Allergies, Adverse Reactions, Alerts Allergy Allergy Status Severity Reaction(s) Onset Inactive Treating Comm ents Source Name Type Date Date Clinician eggs DA Active SV 2019-09 [facility] 10-20 [place] 00:00: Health 00 are [facility] st codeine Adverse Active Info Not [facility] Reaction Available [facility]ia [facility] Family History Family Member Diagnosis Comments Start Date Stop Date Source Natural father No Known Problems [facility] Natural mother No Known Problems [facility] Social History Social Habit Start Date Stop Date Quantity Comments Source Tobacco use and 2019-06-20 2019-06-20 Never used [facility] exposure 00:00:00 00:00:00 Hospital Alcohol intake 2019-06-20 2019-06-20 Current drinker [facility] dist 00:00:00 00:00:00 of alcohol Hospital (finding) Alcohol Comment 2019-02-07 2019-02-07 Socially [facility] 00:00:00 00:00:00 Hospital History of 2009-05-10 Current smoker [facility] tobacco use 00:00:00 Hospital Sex Assigned At [birth year] [facility] 00:00:00 00:00:00 Hospital Smoking Status Start Date Stop Date Source Former smoker 2019-06-20 00:00:00 2019-06-20 00:00:00 [facility] Medications Ordered Filled Start Stop Current Ordering Indication Dosage Frequency Signature Comments Components Source Medication Medication Date Date Medication? Clinician (SIG) Name Name Floisidro Flonase 2018-09 Yes Na [place] 2 spray in [facility] 10-22 each [facility] nostril [facility] Lyrica Lyrica 2018-09 Yes Na [place] [address] 09-21 [facility] esomeprazol 2018-09 Yes 20mg Q2D Take 20 mg [facility] e (NexIUM) 0-[address] 20 MG 16:36: every Hospita capsule 47 other day. l ascorbic 2018-09 Yes QD Take by Method i acid/multiv 0-[address] it-min 16:36: daily. Hospita (EMERGEN-C 47 l IMMUNE PLUS ORAL) simethicone 2018-09 Yes 180mg Q6H Take 180 M ethodi (MYLICON,GA 0-[address] S-X) 125 mg 16:36: mouth Hospi ta capsule 47 every 6 l (six) hours as needed for flatulence . lidocaine 2018-09 Yes lidocaine [facility] (XYLOCAINE) 0-10 5 % st 5 % 16:36: topical Hospita ointment 47 ointment l celecoxib Yes TAKE 1 Method i (CeleBREX) 7-[address] 200 MG 00:00: MOUTH Hospita capsule 00 TWICE l DAILY FOR 5 DAYS losartan Yes 25mg QD Take 25 mg [facility] (COZAAR) 25 4-[address] MG tablet 00:00: daily. Hospit a 00 l rosuvastati Yes 5mg Q2D Take 5 mg M ethodi n (CRESTOR) 4-[address] 5 MG tablet 00:00: every Hospi ta 00 other day. l Takes in the evening traMADol 2016- Yes EVERY 6 Method i (ULTRAM) 50 2-[address] mg tablet 00:00: NEEDED PRN Ho spita 00 For Pain l Famotidine Famotidine Yes Na [place] [address] [facility] Meclizine Meclizine Yes Na [place] [address] [facility] HCl HCl as needed [facility] losartan losartan Yes Na Hull one tab C [facility] daily [facility] Flagyl Flagyl Yes Na [place] [address] [facility] Cipro Cipro Yes Na [place] [address] [facility] Aspirin 81 Aspirin 81 Yes Na Hull [address] [facility] Prilosec Prilosec Yes Na [place] [address] OTC OTC [facility] Metronidazo Metronidazo Yes Na [place] [address] Immunizations Ordered Filled Immunization Date Status Comments [facility] e Immunization Name Name Afluria single dose Afluria single dose 2019-08-[address] [facility]00 [facility] Outpatient [facility] Procedures This patient has no known procedures. Plan of Care Planned Activity Planned Date Details Comments Source Future Scheduled Test COVID-19 VACCINE (1) [facility] [code = COVID-19 VACCINE (1)] Future Scheduled Test Hepatitis C screening [facility] (procedure) [code = 832150056] Future Scheduled Test INFLUENZA VACCINE [facility] [code = INFLUENZA VACCINE] Encounters Start End Encounter Admission Attending Care Care Encounter Source Date/Time Date/Time Type Type Clinicians Facility Department ID 2021-04-30 2021-04-30 Outpatient [facility] [id number] [facility] 2021-04-05 2021-04-05 Outpatient [facility] [id number] [facility]00 [facility] Outpati ent Clinics 2020-08-11 2020-08-11 Orders Jitendraru [id number] [facility] 00:00:00 00:00:00 Only danica [id number] 614 [facility] 3.430.2.7 Hospi Robertson .[id number] l .8 2020-05-02 2020-05-02 [facility] [id number] 17:59:00 17:59:00 t Theatro s [employer] [facility] Medicine Outpati ent Clinics 2020-04-30 2020-04-30 [facility] [id number] 13:40:00 13:40:00 t [employer]ement [employer] [facility] Medicine Outpati ent Clinics 2019-11-05 2019-11-05 [facility] [id number] 16:05:00 16:05:00 t Cement [employer] [facility] Medicine Outpati ent Clinics 2019-08-21 2019-08-21 [facility] [id number] 08:00:00 08:00:00 t [employer] [facility] Medicine Medicine Outpati ent Clinics 2019-07-22 2019-07-22 [facility] [id number] 16:20:00 16:20:00 t [employer] [facility] Medicine Outpati ent Clinics 2019-01-07 2019-01-07 [facility] [id number] 10:00:00 10:00:00 t [employer] [facility] Medicine Medicine Outpati ent Clinics 2018-12-27 2018-12-27 [facility] [id number] 16:47:00 16:47:00 t Theatro [employer] [facility] Medicine Outpati ent Clinics Results Test Description Test Time Test Comments Results Result Comments Source CBC W/AUTO DIFF 2020-09-21 07:30:00 Test Item Value Reference Range Interpretation Comme nts WHITE BLOOD CELL (test code = WBC) 10.9 x10 3/uL 4.8-10.8 H RED BLOOD CELL (test code = RBC) 4.30 x10 6/uL 4.70-6.10 L HEMOGLOBIN (test code = HGB) 12.7 g/dL 14.5-20 L HEMATOCRIT (test code = HCT) 38.2 % 42.0-52.0 L MEAN CELL VOLUME (test code = MCV) 88.8 fL 80.0-94.0 N MEAN CELL HGB (test code = MCH) 29.5 pg 27-31 N MEAN CELL HGB CONCENTRATION (test code = MCHC) 33.2 G/DL 33-36.5 N RED CELL DISTRIBUTION WIDTH (test code = RDW) 12.8 % 12.9-16. 9 L PLATELET COUNT (test code = PLT) 327 x10 3/uL 150-440 N MEAN PLATELET VOLUME (test code = MPV) 8.0 fL 8.9-12.4 L NEUTROPHIL % (test code = NT%) 62.7 % 42.2-75.2 N LYMPHOCYTE % (test code = LY%) 27.9 % 20.5-51.1 N MONOCYTE % (test code = MO%) 6.1 % 1.7-9.3 N EOSINOPHIL % (test code = EO%) 1.9 % 0.0-7.0 N BASOPHIL % (test code = BA%) 0.7 % 0-2.5 N NEUTROPHIL # (test code = NT#) 6.80 x10 3/uL 1.80-7.70 N LYMPHOCYTE # (test code = LY#) 3.03 x10 3/uL 1.00-4.80 N MONOCYTE # (test code = MO#) 0.66 x10 3/uL 0.00-0.80 N EOSINOPHIL # (test code = EO#) 0.21 x10 3/uL 0.00-0.45 N BASOPHIL # (test code = BA#) 0.08 x10 3/uL 0.0-0.20 N BASIC METABOLIC [id number] 05:09:00 Test Item Value Reference Range Interpretation Comments SODIUM (test code 135 MMOL/L 136-143 L = NA) POTASSIUM (test 3.9 MMOL/L 3.5-5.1 N code = K) CHLORIDE (test 102 MMOL/L 98-107 N code = CL) CARBON DIOXIDE 24 mmol/L 24-31 N (test code = CO2) GLUCOSE (test code 100 mg/dL 70-104 N = GLU) BLOOD UREA 9.0 MG/DL 7.0-21.0 N NITROGEN (test code = BUN) GLOMERULAR >=60 max >60 The estimated FILTRATION RATE estimate glomerular (test code = GFR) filtration rate is computed usingpatient ra ce, age (>18), sex, and serum creatinin e. If anyof the neede d data elements a re missing the Laboratory oneil ot compute an estimation of t he glomerular filtration rate . CREATININE (test 0.6 mg/dL 0.8-1.5 L code = CREAT) CALCIUM (test code 8.2 mg/dL 8.8-10.2 L = CA) BASIC METABOLIC [id number] 04:45:00 Test Item Value Reference Range Interpretation Comments SODIUM (test code 136 MMOL/L 136-143 N = NA) POTASSIUM (test 4.1 MMOL/L 3.5-5.1 N code = K) CHLORIDE (test 105 MMOL/L 98-107 N code = CL) CARBON DIOXIDE 22 mmol/L 24-31 L (test code = CO2) GLUCOSE (test code 77 mg/dL 70-104 N = GLU) BLOOD UREA 13.0 MG/DL 7.0-21.0 N NITROGEN (test code = BUN) GLOMERULAR >=60 max >60 The estimated FILTRATION RATE estimate glomerular (test code = GFR) filtration rate is computed usingpatient ra ce, age (>18), sex, and serum creatinin e. If anyof the neede d data elements a re missing the Laboratory oneil ot compute an estimation of t he glomerular filtration rate . CREATININE (test 0.7 mg/dL 0.8-1.5 L code = CREAT) CALCIUM (test code 8.4 mg/dL 8.8-10.2 L = CA) [id number] 04:45:00 Test Item Value Reference Range Interpretation Comments PHOSPHOROUS (test code = PHOS) 2.6 mg/dL 2.7-4.5 L [id number] 04:45:00 Test Item Value Reference Range Interpretation Comments MAGNESIUM (test code = MAG) 2.0 mg/dL 1.4-2.6 N CBC W/AUTO [id number] 04:26:00 Test Item Value Reference Range Interpretation Comments WHITE BLOOD CELL (test code = 11.6 x10 3/uL 4.8-10.8 H WBC) RED BLOOD CELL (test code = 3.93 x10 6/uL 4.70-6.10 L RBC) HEMOGLOBIN (test code = HGB) 11.8 g/dL 14.5-20 L HEMATOCRIT (test code = HCT) 35.4 % 42.0-52.0 L MEAN CELL VOLUME (test code = 90.1 fL 80.0-94.0 N MCV) MEAN CELL HGB (test code = MCH) 30.0 pg 27-31 N MEAN CELL HGB CONCENTRATION 33.3 G/DL 33-36.5 N (test code = MCHC) RED CELL DISTRIBUTION WIDTH 12.5 % 12.9-16.9 L (test code = RDW) PLATELET COUNT (test code = 278 x10 3/uL 150-440 N PLT) MEAN PLATELET VOLUME (test code 8.3 fL 8.9-12.4 L = MPV) NEUTROPHIL % (test code = NT%) 62.8 % 42.2-75.2 N LYMPHOCYTE % (test code = LY%) 26.2 % 20.5-51.1 N MONOCYTE % (test code = MO%) 7.4 % 1.7-9.3 N EOSINOPHIL % (test code = EO%) 2.5 % 0.0-7.0 N BASOPHIL % (test code = BA%) 0.5 % 0-2.5 N NEUTROPHIL # (test code = NT#) 7.25 x10 3/uL 1.80-7.70 N LYMPHOCYTE # (test code = LY#) 3.03 x10 3/uL 1.00-4.80 N MONOCYTE # (test code = MO#) 0.85 x10 3/uL 0.00-0.80 H EOSINOPHIL # (test code = EO#) 0.29 x10 3/uL 0.00-0.45 N BASOPHIL # (test code = BA#) 0.06 x10 3/uL 0.0-0.20 N [id number] 16:55:00 Test Item Value Reference Range Interpretation Comments GLUBED (test code = GLUBED) 89 MG/DL 70-105 N [id number] 12:41:00 Test Item Value Reference Range Interpretation Comments GLUBED (test code = GLUBED) 78 MG/DL 70-105 N - CT ABD PELVIS [id number] 12:29:00 [facility] : 1975 Sex: MPatient Name: VALERI BENJAMIN Unit No: [id number] EXAMS: CPT CODE: [id number] CT ABD PELVIS W/CONT 30953 CT Abdomen and Pelvis with contrast. Location: B2 Clinical indication: 45-year-old with intra-abdominal abscess status post colon resection Comparison: None Technique: Computed axial images were obtained from the diaphragms through the pubic symphysis following IV administration of 100 mL Isovue- 300. Up to date CT equipment and radiation dose reduction technique were utilized. Findings: Abdomen: There is mild bibasilar pulmonary atelectasis. The liver, gallbladder, spleen, and pancreas are without acute abnormality. There is a 2 cm smoothly marginated left adrenal nodule, indeterminate. Right adrenal gland is normal. There is a nonobstructing calculus in each kidney, larger 4 mm on the right. There is minimal scarring in the left lower pole kidney. There is atherosclerotic calcification of the abdominal aorta. Pelvis: There is been surgery of the mid sigmoid colon. There is small amount offree air and inflammation adjacent to this, and there appears to be a small disruption in the sigmoid colon wall along its superior aspect.. There is no organized abscess. There is an approximate 4 cm collection of fluid more inferior, between the prostate and rectum. This does not have clearly organized margins, either free fluid, blood or phlegmon. Normal appendix. Urinary bladder is decompressed. No acute osseous abnormality of the abdomen or pelvis. Impression: 1. Status post surgery of the sigmoid colon. Thereis a probable small leak within its mid aspect, with some associated extraluminal air and inflammatory stranding. There is no organized abscess at this location. 2. 4 cm collection of nonorganized fluid between the rectum and seminal vesicles. This may be phlegmon or hematoma. Follow-up may be of benefit. at 1229 Reported and signed by: Nikita Garcia MD Name: VALERI BENJAMIN STEVE [facility] Phys: Arleen Ramirez DO [address] : 1975 Age: 45 Sex: M [place] [address] Loc: [id number] 1Exam Date: 09/19/2020 Status: ADM IN PH: FAX: PAGE 1 Signed Report (CONTINUED) Patient Name: VALERI BENJAMIN Unit No: [id number] EXAMS: CPT CODE: [id number] ABD PELVIS W/CONT 85991 <Continued> CC: Arleen Charles DO; Hanh Hull DO; Dwayne Bennett MD Technologist: ADDISON Porras(Chiki)(CT) CTDI: 13.01 DLP: 685 Trscr Dt/Tm: 09/19/2020 (1229) by:[email or web address] Printed Date/Time: 09/19/2020 (8402) Name: VALERI BENJAMIN STEVE [facility] Phys: Arleen Ramirez DO [address] : 1975 Age: 45 Sex: M [place] [address] Loc: P.0719 1 Exam Date: 09/19/2020 Status: ADM IN PH: FAX: PAGE 2 Signed [id number] 08:24:00 Test Item Value Reference Range Interpretation Comments GLUBED (test code = GLUBED) 77 MG/DL 70-105 N CBC W/MANUAL [id number] 06:03:00 Test Item Value Reference Range Interpretation Comments WHITE BLOOD CELL (test code = 18.6 x10 3/uL 4.8-10.8 H WBC) RED BLOOD CELL (test code = 4.10 x10 6/uL 4.70-6.10 L RBC) HEMOGLOBIN (test code = HGB) 12.2 g/dL 14.5-20 L HEMATOCRIT (test code = HCT) 37.4 % 42.0-52.0 L MEAN CELL VOLUME (test code = 91.2 fL 80.0-94.0 N MCV) MEAN CELL HGB (test code = MCH) 29.8 pg 27-31 N MEAN CELL HGB CONCENTRATION 32.6 G/DL 33-36.5 L (test code = MCHC) RED CELL DISTRIBUTION WIDTH 13.0 % 12.9-16.9 N (test code = RDW) PLATELET COUNT (test code = 297 x10 3/uL 150-440 N PLT) MEAN PLATELET VOLUME (test code 8.2 fL 8.9-12.4 L = MPV) TOTAL CELLS COUNTED (test code 100 #CELLS = TCC) SEGMENTED NEUTROPHILS (test 77 % 49-71 H code = SEG) LYMPHOCYTE (test code = LYMPH) 15 % 20-40 L MONOCYTE (test code = MON) 8 % 3-8 N PLATELET ESTIMATE (test code = ADEQUATE ADEQUATE PLTEST) PLATELET MORPHOLOGY (test code NORMAL NORMAL = PLTMORPH) BASIC METABOLIC [id number] 04:15:00 Test Item Value Reference Range Interpretation Comments SODIUM (test code 132 MMOL/L 136-143 L = NA) POTASSIUM (test 4.0 MMOL/L 3.5-5.1 N code = K) CHLORIDE (test 100 MMOL/L 98-107 N code = CL) CARBON DIOXIDE 22 mmol/L 24-31 L (test code = CO2) GLUCOSE (test code 90 mg/dL 70-104 N = GLU) BLOOD UREA 17.2 MG/DL 7.0-21.0 N NITROGEN (test code = BUN) GLOMERULAR >=60 max >60 The estimated FILTRATION RATE estimate glomerular (test code = GFR) filtration rate is computed usingpatient ra ce, age (>18), sex, and serum creatinin e. If anyof the neede d data elements a re missing the Laboratory oneil ot compute an estimation of t he glomerular filtration rate . CREATININE (test 0.7 mg/dL 0.8-1.5 L code = CREAT) CALCIUM (test code 8.5 mg/dL 8.8-10.2 L = CA) [id number] 04:15:00 Test Item Value Reference Range Interpretation Comments PHOSPHOROUS (test code = PHOS) 3.1 mg/dL 2.7-4.5 N [id number] 04:15:00 Test Item Value Reference Range Interpretation Comments MAGNESIUM (test code = MAG) 2.0 mg/dL 1.4-2.6 N CBC W/MANUAL [id number] 03:22:00 Test Item Value Reference Range Interpretation Comments WHITE BLOOD CELL (test code = 18.6 x10 3/uL 4.8-10.8 H WBC) RED BLOOD CELL (test code = 4.10 x10 6/uL 4.70-6.10 L RBC) HEMOGLOBIN (test code = HGB) 12.2 g/dL 14.5-20 L HEMATOCRIT (test code = HCT) 37.4 % 42.0-52.0 L MEAN CELL VOLUME (test code = 91.2 fL 80.0-94.0 N MCV) MEAN CELL HGB (test code = MCH) 29.8 pg 27-31 N MEAN CELL HGB CONCENTRATION 32.6 G/DL 33-36.5 L (test code = MCHC) RED CELL DISTRIBUTION WIDTH 13.0 % 12.9-16.9 N (test code = RDW) PLATELET COUNT (test code = 297 x10 3/uL 150-440 N PLT) MEAN PLATELET VOLUME (test code 8.2 fL 8.9-12.4 L = MPV) TOTAL CELLS COUNTED (test code #CELLS = TCC) SEGMENTED NEUTROPHILS (test % 49-71 code = SEG) LYMPHOCYTE (test code = LYMPH) % 20-40 CBC W/MANUAL [id number] 03:22:00 Test Item Value Reference Range Interpretation Comments WHITE BLOOD CELL (test code = 18.6 x10 3/uL 4.8-10.8 H WBC) RED BLOOD CELL (test code = 4.10 x10 6/uL 4.70-6.10 L RBC) HEMOGLOBIN (test code = HGB) 12.2 g/dL 14.5-20 L HEMATOCRIT (test code = HCT) 37.4 % 42.0-52.0 L MEAN CELL VOLUME (test code = 91.2 fL 80.0-94.0 N MCV) MEAN CELL HGB (test code = MCH) 29.8 pg 27-31 N MEAN CELL HGB CONCENTRATION 32.6 G/DL 33-36.5 L (test code = MCHC) RED CELL DISTRIBUTION WIDTH 13.0 % 12.9-16.9 N (test code = RDW) PLATELET COUNT (test code = 297 x10 3/uL 150-440 N PLT) MEAN PLATELET VOLUME (test code 8.2 fL 8.9-12.4 L = MPV) TOTAL CELLS COUNTED (test code #CELLS = TCC) SEGMENTED NEUTROPHILS (test % 49-71 code = SEG) LYMPHOCYTE (test code = LYMPH) % 20-40 BASIC METABOLIC [id number] 06:29:00 Test Item Value Reference Range Interpretation Comments SODIUM (test code 139 MMOL/L 136-143 N = NA) POTASSIUM (test 4.0 MMOL/L 3.5-5.1 N code = K) CHLORIDE (test 106 MMOL/L 98-107 N code = CL) CARBON DIOXIDE 25 mmol/L 24-31 N (test code = CO2) GLUCOSE (test code 113 mg/dL 70-104 H = GLU) BLOOD UREA 17.3 MG/DL 7.0-21.0 N NITROGEN (test code = [...] N code = CREAT) CALCIUM (test code 8.4 mg/dL 8.8-10.2 L = CA) [id number] 06:29:00 Test Item Value Reference Range Interpretation Comments MAGNESIUM (test code = MAG) 2.1 mg/dL 1.4-2.6 N CBC W/AUTO [id number] 05:39:00 Test Item Value Reference Range Interpretation [...] BA#) 0.08 x10 3/uL 0.0-0.20 N SURGICAL [id number] 15:39:00 Test Item Value Reference Range Interpretation Comments SURGICAL SPECIMENS (test code = SURG) RUN DATE: 08/26/20 [facility] - LAB PAGE 1 RUN TIME: 1539 Specimen Inquiry RUN USER: INTERFACE PATIENT: VALERI BENJAMIN LOC: Lai6S POD B U #: [id number] AGE/SX: 45/M ROOM: [facility] RE08/25/20[facility] DR: Pawan Baum MD : 71 BED: 1 DIS: STATUS: ADM IN TLOC: SPEC #: [id number] RECD: 08/25/20 STATUS: NIMA REJaz #: [id number] MUSTAPHA: 08/25/[address]: Pawan Baum MD ENTERED: 08/25/20 SP TYPE: SURG OTHR DR: Boo Olsen MD, Na Ly DOORDERED: PATHGM5, PATH SPEC, H E STAIN HISTOLOGY: TISSUE ID BLK PCS DONNA LEV / PROCEDURE DISPOSITION ____ ___ ___ ___ ___ COLON SEG NTUMR A 5 1 TISSUES: A. COLON SEGMENTAL [id number] - Sigmoid Colon CLINICAL HISTORY Diverticulitis FINAL DIAGNOSIS SIGMOID COLON, RESECTION: -ACUTE DIVERTICULITIS WITH MICROSCOPIC PERFORATIONS AND ORGANIZING ABSCESS -ONE BENIGN LYMPH NODE -SEROSAL ADHESIONS -NO DYSPLASIA OR MALIGNANCY IS IDENTIFIED CPT 76201 GROSS DESCRIPTION Received in formalin labeled with [...] The bowel wall does not appear thickened. Sanitation Associate sections are submitted: A1-A2, bowel resection margins; A3, possible diverticulum with abscess; A4, possible diverticula; A5, remainder of colon, retention representative. CM/ta. Signed SIGNATURE ON FILE Sangita Arnett MD 08/26/20 1539 END OF REPORT CBC W/MANUAL [id number] 08:31:00 Test Item Value Reference Range Interpretation [...] code NORMAL NORMAL = PLTMORPH) BASIC METABOLIC [id number] 06:27:00 Test Item Value Reference Range Interpretation [...] code 8.9 mg/dL 8.8-10.2 N = CA) [id number] 06:27:00 Test Item Value Reference Range Interpretation Comments MAGNESIUM (test code = MAG) 2.1 mg/dL 1.4-2.6 N CBC W/MANUAL [id number] 06:21:00 Test Item Value Reference Range Interpretation [...] = LYMPH) % 20-40 Novel Coronavirus 2018 [id number] 11:11:00 Test Item Value Reference Range Interpretation Comments Novel Coronavirus Not Detected Not Detected Testing wa s performed 2019 Inhouse (test using the Aptima code = [...] shruthi gnosis of COVID-19 infect ion under ammoskj755(b)(1 ) of the Act, 21 U.S.C. 360bbb-3(b) [...] resul t in this assay.Performed At: [facility] [address] [id number] brooklyn Ayon MD [phone] COMPREHENSIVE METABOLIC [id number] 13:25:00 Test Item Value Reference Range Interpretation [...] 45-120 N PHOSPHATASE (test code = ALKP) [id number] 13:25:00 Test Item Value Reference Range Interpretation Comments PREALBUMIN (test code = PREALB) 27.6 MG/ML 15-42 N COMPREHENSIVE METABOLIC [id number] 11:55:00 Test Item Value Reference Range Interpretation [...] 45-120 N PHOSPHATASE (test code = ALKP) [id number] 11:55:00 Test Item Value Reference Range Interpretation Comments PREALBUMIN (test code = PREALB) MG/ML 15-42 CBC W/AUTO [id number] 09:26:00 Test Item Value Reference Range Interpretation [...] BA#) 0.10 x10 3/uL 0.0-0.20 N PROTHROMBIN [id number] 09:26:00 Test Item Value Reference Range Interpretation [...] 2.5-3.5recurren t systemic emboli sm. THROMBOPLASTIN TIME [id number] 09:26:00 Test Item Value Reference Range Interpretation Comments THROMBOPLASTIN TIME 27.8 SECONDS 23.8-34.8 N INTERPRE TATIVE PARTIAL (test code = DATA:Th erapeutic PTT) range: Unfractionated heparin:55 - 80 seconds Argatroban:1.5 to 3 times the basel ine PTT
--- NOTE | 2021-05-05 21:02 | EDPHYS ---
Physician Documentation [facility] Name: Xiomara Haro Age: 46 yrs Sex: Male : 1975 Arrival Date: 05/05/2021 Time: 18:57 Bed DIS3 Private MD: ED Physician London Gaston HPI: 05/05 20:55 This 46 yrs old Male presents to ER via Ambulatory with complaints of pkl Shingles. 20:55 The rash is located on the left lateral chest and right groin. The rash can be pkl described as blister - like lesions. Onset: The symptoms/episode began/occurred 2 week(s) ago. Associated signs and symptoms: Pertinent positives: Pain. Historical: - Allergies: 19:07 hydrocodone; sv - PMHx: 19:07 Diverticulitis; Myocardial infarction; sv - Immunization history:: Client reports having NOT received the Covid vaccine. - Social history:: Smoking status: Patient denies any tobacco usage or history of. ROS: 20:55 Eyes: Negative for injury, pain, redness, and discharge, ENT: Negative for injury, pkl pain, and discharge, Neck: Negative for injury, pain, and swelling, Cardiovascular: Negative for chest pain, palpitations, and edema, Respiratory: Negative for shortness of breath, cough, wheezing, and pleuritic chest pain, Abdomen/GI: Negative for abdominal pain, nausea, vomiting, diarrhea, and constipation, Back: Negative for injury and pain, : Negative for injury, bleeding, discharge, and swelling, MS/Extremity: Negative for injury and deformity. 20:55 Skin: Positive for rash, of the left lateral chest and right groin. 20:55 Neuro: Negative for altered mental status, loss of consciousness. Exam: 20:55 Head/Face: Normocephalic, atraumatic. Eyes: Pupils equal round and reactive to light, pkl extra-ocular motions intact. Lids and lashes normal. Conjunctiva and sclera are non-icteric and not injected. Cornea within normal limits. Periorbital areas with no swelling, redness, or edema. ENT: Nares patent. No nasal discharge, no septal abnormalities noted. Tympanic membranes are normal and external auditory canals are clear. Oropharynx with no redness, swelling, or masses, exudates, or evidence of obstruction, uvula midline. Mucous membranes moist. Neck: Trachea midline, no thyromegaly or masses palpated, and no cervical lymphadenopathy. Supple, full range of motion without nuchal rigidity, or vertebral point tenderness. No Meningismus. Chest/axilla: Normal chest wall appearance and motion. Nontender with no deformity. No lesions are appreciated. Cardiovascular: Regular rate and rhythm with a normal S1 and S2. No gallops, murmurs, or rubs. Normal PMI, no JVD. No pulse deficits. Respiratory: Lungs have equal breath sounds bilaterally, clear to auscultation and percussion. No rales, rhonchi or wheezes noted. No increased work of breathing, no retractions or nasal flaring. Abdomen/GI: Soft, non-tender, with normal bowel sounds. No distension or tympany. No guarding or rebound. No evidence of tenderness throughout. Back: No spinal tenderness. No costovertebral tenderness. Full range of motion. MS/ Extremity: Pulses equal, no cyanosis. Neurovascular intact. Full, normal range of motion. Neuro: Awake and alert, GCS 15, oriented to person, place, time, and situation. Cranial nerves II-XII grossly intact. Motor strength 5/5 in all extremities. Sensory grossly intact. Cerebellar exam normal. Normal gait. 20:55 Skin: rash can be described as vesicular, on the left lateral chest and right groin. Vital Signs: 19:09 BP 127 / 89; Pulse 83; Resp 16; Temp 98.2(O); Pulse Ox 99% ; Weight 86.18 kg; Height 5 sv ft. 10 in. (177.80 cm); Pain 9/10; 21:15 BP 128 / 74; Pulse 82; Resp 20; Temp 98.3; Pulse Ox 99% on R/A; Pain 8/10; wg 19:09 Body Mass Index 27.26 (86.18 kg, 177.80 cm) sv MDM: 20:49 Patient medically screened. pkl 20:55 Data reviewed: vital signs, nurses notes. pkl Administered Medications: 21:15 Drug: Acyclovir 800 mg Route: PO; bb 21:22 Follow up: Response: Medication administered at discharge. deanne Disposition Summary: 05/05/21 21:02 Discharge Ordered Location: Home pkl Problem: new pkl Symptoms: are unchanged pkl Condition: Stable pkl Diagnosis - Rash left lateral chest and right groin. Possible shingles pkl Followup: pkl - With: Private Physician - When: 1 week - Reason: Re-evaluation by your physician Discharge Instructions: - Discharge Summary Sheet pkl Forms: - Medication Reconciliation Form pkl - Thank You Letter pkl - Antibiotic Education pkl - Prescription Opioid Use pkl Prescriptions: - Diclofenac Sodium 75 mg Oral Tablet Sustained Release - take 1 tablet by ORAL route 2 times per day; 30 tablet; Refills: 0, Product pkl Selection Permitted - Acyclovir 800 mg Oral Tablet - take 1 tablet by ORAL route 4 times per day for 10 days; 40 tablet; Refills: 0, pkl Product Selection Permitted Signatures: Ning Wright, London Dominguez RN, MD MD pkl Deborah Reilly RN RN bb
--- NOTE | 2021-05-05 21:02 | ER ---
Nurse's Notes [facility] Name: Xiomara Haro Age: 46 yrs Sex: Male : 1975 Arrival Date: 05/05/2021 Time: 18:57 Bed DIS3 Private MD: Diagnosis: Rash left lateral chest and right groin. Possible shingles Presentation: 05/05 19:08 Chief complaint: Patient states: "I think I have shingles, started 2 weeks ago.". sv Coronavirus screen: Client denies travel out of the [place] in the last 14 days. At this time, the client does not indicate any symptoms associated with coronavirus-19. Ebola Screen: No symptoms or risks identified at this time. Risk Assessment: Do you want to hurt yourself or someone else? Patient reports no desire to harm self or others. Onset of symptoms was April 2021. 19:08 Method Of Arrival: Ambulatory 19:08 Acuity: DULCE 5 sv 19:09 Initial Sepsis Screen: Does the patient meet any 2 criteria? No. Patient's initial sv sepsis screen is negative. Does the patient have a suspected source of infection? No. Patient's initial sepsis screen is negative. Triage Assessment: 19:09 General: Appears in no apparent distress. uncomfortable, well developed, Behavior is sv calm, cooperative, appropriate for age. Pain: Complains of pain in back. Neuro: Level of Consciousness is awake, alert, obeys commands, Oriented to person, place, time, situation, Gait is steady. Respiratory: Respiratory effort is even, unlabored. Historical: - Allergies: 19:07 hydrocodone; sv - PMHx: 19:07 Diverticulitis; Myocardial infarction; sv - Immunization history:: Client reports having NOT received the Covid vaccine. - Social history:: Smoking status: Patient denies any tobacco usage or history of. Assessment: 21:16 General: Appears in no apparent distress. uncomfortable, Behavior is calm, cooperative, wg Smells of Reports Denies fever, Sitting upright in chair. A\\T\\Ox3. Pt states he would like something for discomfort and to hopefully address the shingles. . Pain: Complains of pain in abdomen and pelvis. Neuro: No deficits noted. Cardiovascular: No deficits noted. Respiratory: No deficits noted. GI: No deficits noted. : No deficits noted. EENT: No deficits noted. Derm: Reports pain that is 8 out of 10 on a pain scale. Denies Parent/caregiver reports the patient having. Musculoskeletal: No deficits noted. 21:21 Reassessment: pt seen by this RN at discharge pt verbalized understanding of and agrees bb to plan of care discharge instructions given pt ambulated with steady gait to exit. Vital Signs: 19:09 BP 127 / 89; Pulse 83; Resp 16; Temp 98.2(O); Pulse Ox 99% ; Weight 86.18 kg; Height 5 sv ft. 10 in. (177.80 cm); Pain 9/10; 21:15 BP 128 / 74; Pulse 82; Resp 20; Temp 98.3; Pulse Ox 99% on R/A; Pain 8/10; wg 19:09 Body Mass Index 27.26 (86.18 kg, 177.80 cm) sv ED Course: 18:57 Patient arrived in ED. as 19:07 Arm band placed on. sv 19:09 Triage completed. sv 20:49 London Gaston MD is Attending Physician. pkl 21:16 Patient has correct armband on for positive identification. wg 21:16 No provider procedures requiring assistance completed. Patient did not have IV access wg during this emergency room visit. 21:21 Deborah Reilly RN is Primary Nurse. bb Administered Medications: 21:15 Drug: Acyclovir 800 mg Route: PO; bb 21:22 Follow up: Response: Medication administered at discharge. bb Outcome: 21:02 Discharge ordered by . pkl 21:22 Discharged to home ambulatory. bb 21:22 Condition: stable 21:22 Discharge instructions given to patient, Instructed on discharge instructions, follow up and referral plans. medication usage, Demonstrated understanding of instructions, follow-up care, medications, Prescriptions given X 1. 21:23 Patient left the ED. bb Signatures: Ning Wright RN RN sv Lam, Pin, MD MD pkl Martinez, Amelia as Ballard, Brenda, RN RN bb Gamba, Williams Corrections: (The following items were deleted from the chart) 19:10 19:09 86.18 kg; Height 5 ft. 10 in.; BMI: 27.2; Pain 9/10; sv sv 19:10 19:09 Resp 16bpm; 86.18 kg; Height 5 ft. 10 in.; BMI: 27.2; Pain 9/10; sv sv 19:12 19:09 Pulse 83bpm; Resp 16bpm; Pulse Ox 99%; Temp 98.2F Oral; 86.18 kg; Height 5 ft. 10 sv in.; BMI: 27.2; Pain 9/10; sv
[2021-05-05] MEDS ORDERED: ACYCLOVIR 400 MG TABLET ONE (21:37)
[2021-05-05 21:41] VITALS: O2SAT 99
[2021-05-05 21:43] VITALS: BP 128/74; TEMP 98.3
== END 2021-05-05 21:23 | disposition home or self-care (01) ==
LOC: ER 18:55
DX: R21 Rash and other nonspecific skin eruption (principal); Z88.5 Allergy status to narcotic agent
CPT/HCPCS: 99283

== ENCOUNTER 2022-05-22 13:34 | Emergency (ER) | payer OTHER ==
--- OUTSIDE RECORDS SUMMARY | 2022-05-22 13:38 | XMS REPORT | Continuity of Care Document ---
:1975 Author Organization [facility] t Address [address] [place] [address] Care Team Providers Name Role Phone Hanh Hull DO Primary Care Physician Hanh Hull Attending Clinician Unavailable Dwayne Bennett Attending Clinician Unavailable Pawan Baum Attending Clinician Unavailable Anthony Griffin MD Attending Clinician Haylee Marvin Attending Clinician [phone] Dwayne Bennett Admitting Clinician Unavailable Hanh Hull Admitting Clinician Unavailable Payers Payer Name Policy Type Policy Effective Date Expiration Date [facility] Number [id number] CHOICE [id number] PPO/FEDERAL 00:00:00 Hospital EMPL [id number] 2019-Presen tPPO Problems This patient has no known problems. Allergies, Adverse Reactions, Alerts Allergy Allergy Status Severity Reaction(s) Onset Inactive Treating Comm ents Source Name Type Date Date Clinician eggs DA Active SV RUNNY 2019-09 [facility] NOSE,SNEEZIN 2-09 [place] 00:[facility]: [facility] 00 are [facility] st codeine Adverse Active Info Not Common Reaction Available Spiri t - [facility] Family History Family Member Diagnosis Comments Start Date Stop Date Source Natural father No Known Problems Met [facility] Natural mother No Known Problems Met [facility] Social History Social Habit Start Date Stop Date Quantity Comments Source Tobacco use and 2019-06-20 2019-06-20 Never used Jew exposure 00:00:00 00:00:00 Hospital Alcohol intake 2019-06-20 2019-06-20 Current drinker Metho dist 00:00:00 00:00:00 of alcohol Hospital (finding) Alcohol Comment 2019-02-07 2019-02-07 Socially Jew 00:00:00 00:00:00 Hospital History of 2009-05-10 Cigarette Smoker Methodis t tobacco use 00:00:00 Hospital Sex Assigned At [birth year] M Jew 00:00:00 00:00:00 Hospital Smoking Status Start Date Stop Date Source Former smoker 2019-06-20 00:00:00 2019-06-20 00:00:00 [facility] Medications Ordered Filled Start Stop Current Ordering Indication Dosage Frequency Signature Comments Components Source Medication Medication Date Date Medication? Clinician (SIG) Name Name Alvin Esquivel 2018-09 Yes Na Hull 2 spray in Common 2- each Spirit 00:00: nostril - [facility] Lyrica Lyrica 2018-09 Yes Na Hull 1 capsule C ommon -11 Spirit 00:00: - [facility] ascorbic 2018-09 Yes QD Take by Method [...] 16:36: topical Hospita ointment 47 ointment l esomeprazol 2018-09 Yes 20mg Q2D Take 20 mg Methodi e (NexIUM) 0-[address] 20 MG 16:36: every Hospita capsule 47 other day. l esomeprazol 2018-09 Yes 20mg Q2D Take 20 mg Methodi e (NexIUM) 0-[address] 20 MG 11:36: every Hospita capsule 47 other day. l ascorbic 2018-09 Yes QD Take by Method i acid/multiv 0-[address] it-min 11:36: daily. Hospita (EMERGEN-C 47 l IMMUNE PLUS ORAL) simethicone 2018-09 Yes 180mg Q6H Take 180 M ethodi (MYLICON,GA 0-[address] S-X) 125 mg 11:36: mouth Hospi ta capsule 47 every 6 l (six) hours as needed for flatulence . lidocaine 2018-09 Yes lidocaine Met hodi (XYLOCAINE) 0-10 5 % st 5 % 11:36: topical Hospita ointment 47 ointment l celecoxib Yes TAKE 1 Method i (CeleBREX) 7-[address] 200 MG 00:00: MOUTH Hospita capsule 00 TWICE l DAILY FOR 5 DAYS celecoxib Yes TAKE 1 Method i (CeleBREX) 7-[address] 200 MG 00:00: MOUTH Hospita capsule 00 TWICE l DAILY FOR 5 DAYS losartan Yes 25mg QD Take 25 mg Met hodi (COZAAR) 25 4-[address] MG tablet 00:00: daily. Hospit a 00 l losartan Yes 25mg QD Take 25 mg Met hodi (COZAAR) 25 4-[address] MG tablet 00:00: daily. Hospit a 00 l rosuvastati Yes 5mg Q2D Take 5 mg M ethodi n (CRESTOR) 4-[address] 5 MG tablet 00:00: every Hospi ta 00 other day. l Takes in the evening rosuvastati Yes 5mg Q2D Take 5 mg M ethodi n (CRESTOR) 4-[address] 5 MG tablet 00:00: every Hospi ta 00 other day. l Takes in the evening traMADol 2016-09 Yes EVERY 6 Method i (ULTRAM) 50 2-[address] mg tablet 00:00: NEEDED PRN Ho spita 00 For Pain l traMADol 2016-09 Yes EVERY 6 Method i (ULTRAM) 50 2-[address] mg tablet 00:00: NEEDED PRN Ho spita 00 For Pain l Famotidine Famotidine Yes Na Hull 1 tablet Common at bedtime Spirit - [facility] Meclizine Meclizine Yes Na Hull 1 tablet Common HCl HCl as needed [facility] losartan losartan Yes Na Hull one tab C ommon daily [facility] Flagyl Flagyl Yes Na Hull 1 tablet Comm on [facility] Cipro Cipro Yes Na Hull 1 tablet Common [facility] Aspirin 81 Aspirin 81 Yes Na Hull 1 tablet Common [facility] Prilosec Prilosec Yes Na Hull 1 tablet Common OTC OTC [facility] Metronidazo Metronidazo Yes Na Hull 1 tablet Common le le [facility] Immunizations Ordered Immunization Filled Immunization Date Status Commen ts Source Name Name Afluria single dose Afluria single dose 2019-08-21 Completed Common Spirit 00:00:[address] [place] [address] Procedures Procedure Date / Time Performed Performing Clinician [facility] e [id number] 2020-08-25 00:00:00 [facility] [id number] 2020-08-25 00:00:00 [facility] [id number] 2020-08-25 00:00:00 [facility] Plan of Care Planned Activity Planned Date Details Comments Source Future Scheduled 2022-05-19 HEPATITIS B VACCINES Met [facility] Test 08:26:15 (1 of 3 - 3-dose series) [code = HEPATITIS B VACCINES (1 of 3 - 3-dose series)] Future Scheduled 2022-05-19 COVID-19 VACCINE (#1) [facility] Test 08:26:15 [code = COVID-19 VACCINE (#1)] Future Scheduled 2022-05-19 Hepatitis C screening [facility] Test 08:26:15 (procedure) [code = 049837707] Future Scheduled 2022-05-19 COLONOSCOPY SCREENING [facility] Test 08:26:15 [code = COLONOSCOPY SCREENING] Future Scheduled 2022-05-19 INFLUENZA VACCINE [facility] Test 08:26:15 [code = INFLUENZA VACCINE] Future Scheduled COVID-19 VACCINE (1) Met [facility] Test [code = COVID-19 VACCINE (1)] Future Scheduled Hepatitis C screening [facility] Test (procedure) [code = 436910938] Future Scheduled INFLUENZA VACCINE [facility] Test [code = INFLUENZA VACCINE] Encounters Start End Encounter Admission Attending Care Care Encounter Source Date/Time Date/Time Type Type Clinicians Facility Department ID 2022-05-11 Outpatient Hull, Na STLMLC STLMLC [id number] Common 10:06:00 [facility] 2022-03-16 Outpatient Hull, Na STLMLC STLMLC [id number] Common 14:14:00 [facility] 2022-02-01 Outpatient Hull, Na STLMLC STLMLC [id number] Common 08:59:00 [facility] 2022-01-31 Outpatient [facility] [id number] [place] 16:33:12 [id number] [facility] 2022-01-28 Outpatient Hull, Na STLMLC STLMLC [id number] Common 08:06:01 [facility] 2021-10-06 Outpatient Hull, Na STLMLC STLMLC [id number] Common 13:29:51 [id number] [facility] 2021-10-06 Outpatient Hull, Na STLMLC STLMLC [id number] Common 12:06:19 [id number] [facility] 2021-10-06 Outpatient Hull, Na STLMLC STLMLC [id number] 2 Common 11:39:51 [id number] [facility] 2021-10-06 Outpatient Hull, Na STLMLC STLMLC [id number] Common 11:10:16 [id number] [facility] 2020-09-18 Inpatient FRANSISCA Bennett, [facility] MED [id number] [facility] 18:51:00 Dwayne Radha [facility] 2020-08-25 Inpatient Pawan Baum [facility] DAYS [id number] [facility] 07:00:00 84 [facility] 2022-05-19 2022-05-19 ambulatory STLMLC STLMLC [id number] Common 00:00:00 00:00:00 [facility] 2022-05-12 2022-05-12 ambulatory STLMLC STLMLC [id number] Common 00:00:00 00:00:00 [facility] 2022-05-05 2022-05-05 ambulatory STLMLC STLMLC [id number] Common 00:00:00 00:00:00 [facility] 2022-04-28 2022-04-28 ambulatory STLMLC STLMLC [id number] Common 00:00:00 00:00:00 [facility] 2022-04-21 2022-04-21 ambulatory STLMLC STLMLC [id number] Common 00:00:00 00:00:00 [facility] 2022-04-19 2022-04-19 ambulatory STLMLC STLMLC [id number] Common 00:00:00 00:00:00 [facility] 2022-04-14 2022-04-14 ambulatory STLMLC STLMLC [id number] Common 00:00:00 00:00:00 [facility] 2022-04-07 2022-04-07 ambulatory STLMLC STLMLC [id number] Common 00:00:00 00:00:00 [facility] 2022-03-31 2022-03-31 ambulatory STLMLC STLMLC [id number] Common 00:00:00 00:00:00 [facility] 2022-03-24 2022-03-24 ambulatory STLMLC STLMLC [id number] Common 00:00:00 00:00:00 [facility] 2022-03-17 2022-03-17 ambulatory STLMLC STLMLC [id number] Common 00:00:00 00:00:00 [facility] 2022-03-09 2022-03-09 ambulatory STLMLC STLMLC [id number] Common 00:00:00 00:00:00 [facility] 2022-03-08 2022-03-08 ambulatory STLMLC STLMLC [id number] Common 00:00:00 00:00:00 [facility] 2022-03-08 2022-03-08 ambulatory STLMLC STLMLC [id number] Common 00:00:00 00:00:00 [facility] 2022-03-03 2022-03-03 ambulatory STLMLC STLMLC [id number] Common 00:00:00 00:00:00 [facility] 2022-02-17 2022-02-17 ambulatory STLMLC STLMLC [id number] Common 00:00:00 00:00:00 [facility] 2022-02-10 2022-02-10 ambulatory STLMLC STLMLC [id number] Common 00:00:00 00:00:00 [facility] 2022-02-03 2022-02-03 ambulatory STLMLC STLMLC [id number] Common 00:00:00 00:00:00 [facility] 2022-01-27 2022-01-27 ambulatory STLMLC STLMLC [id number] Common 00:00:00 00:00:00 [facility] 2022-01-20 2022-01-20 ambulatory STLMLC STLMLC [id number] Common 00:00:00 00:00:00 [facility] 2022-01-13 2022-01-13 ambulatory STLMLC STLMLC [id number] Common 00:00:00 00:00:00 [facility] 2022-01-06 2022-01-06 ambulatory STLMLC STLMLC [id number] Common 00:00:00 00:00:00 [facility] 2021-12-30 2021-12-30 ambulatory STLMLC STLMLC [id number] Common 00:00:00 00:00:00 [facility] 2021-12-23 2021-12-23 ambulatory STLMLC STLMLC [id number] Common 00:00:00 00:00:00 [facility] 2021-12-16 2021-12-16 ambulatory STLMLC STLMLC [id number] Common 00:00:00 00:00:00 [facility] 2021-12-09 2021-12-09 ambulatory STLMLC STLMLC [id number] Common 00:00:00 00:00:00 [facility] 2021-12-07 2021-12-07 Travel 1.2.840.1 [id number] Methodi 00:00:00 00:00:[address] 3.430.2.7 0.2.7.3.698 Ho spita .3.081568 084.8 l .8 2021-12-02 2021-12-02 Telephone Elias, 1.2.840.6 [id number] Methodi 00:00:00 00:00:[address] 3.430.2.7 Hospit a .3.552152 l .8 2021-12-02 2021-12-02 ambulatory STLMLC STLMLC [id number] Common 00:00:00 00:00:00 [facility] 2021-12-02 2021-12-02 ambulatory STLMLC STLMLC [id number] Common 00:00:00 00:00:00 [facility] 2021-11-22 2021-11-22 ambulatory STLMLC STLMLC [id number] Common 00:00:00 00:00:00 [facility] 2021-11-22 2021-11-22 ambulatory STLMLC STLMLC [id number] Common 00:00:00 00:00:00 [facility] 2021-11-18 2021-11-18 ambulatory STLMLC STLMLC [id number] Common 00:00:00 00:00:00 [facility] 2021-11-04 2021-11-04 ambulatory STLMLC STLMLC [id number] Common 00:00:00 00:00:00 [facility] 2021-11-04 2021-11-04 ambulatory STLMLC STLMLC [id number] Common 00:00:00 00:00:00 [facility] 2021-05-05 2021-05-05 Outpatient STLMLC STLMLC [id number] Common 00:00:00 00:00:00 [facility] 2021-04-30 2021-04-30 Outpatient STLMLC STLMLC [id number] Common 00:00:00 00:00:00 [facility] 2021-04-05 2021-04-05 Outpatient STLMLC STLMLC [id number] Common 00:00:00 00:00:00 [facility] 2020-08-25 2020-08-25 Outpatient Pawan Baum [facility] REF [id number] [facility] 20:30:00 20:30:00 38 [facility] are [facility] 2020-08-11 2020-08-11 Orders [place] 1.2.840.1 [id number] Methodi 00:00:00 00:00:00 Only my, 31172.1.1 614 [facility] 3.430.2.7 Hospi ta [place] .3.719450 l .8 2020-05-02 2020-05-02 [facility] [id number] Common 17:59:00 17:59:[address] [facility] 2020-04-30 2020-04-30 [facility] [id number] Common 13:40:00 13:40:[address] [facility] 2019-11-05 2019-11-05 [facility] [id number] Common 16:05:00 16:05:[address] [facility] 2019-08-21 2019-08-21 [facility] [id number] Common 08:00:00 08:00:[address] [facility] 2019-07-22 2019-07-22 [facility] [id number] Common 16:20:00 16:20:[address] [facility] 2019-01-07 2019-01-07 [facility] [id number] Common 10:00:00 10:00:[address] [facility] 2018-12-27 2018-12-27 [facility] [id number] Common 16:47:00 16:47:00 [place] [employer] [facility] AAMPP [facility] Results Test Description Test Time Test Comments [...] 0.08 x10 3/uL 0.0-0.20 N BASIC METABOLIC [id number] 05:09:00 Test Item Value Reference Range Interpretation [...] mg/dL 8.8-10.2 L = CA) BASIC METABOLIC [id number] 04:45:00 Test Item Value Reference Range Interpretation [...] code 8.4 mg/dL 8.8-10.2 L = CA) [id number] 04:45:00 Test Item Value Reference Range Interpretation Comments PHOSPHOROUS (test code = PHOS) 2.6 mg/dL 2.7-4.5 L [id number] 04:45:00 Test Item Value Reference Range Interpretation Comments MAGNESIUM (test code = MAG) 2.0 mg/dL 1.4-2.6 N CBC W/AUTO [id number] 04:26:00 Test Item Value Reference Range Interpretation [...] = BA#) 0.06 x10 3/uL 0.0-0.20 N [id number] 16:55:00 Test Item Value Reference Range Interpretation Comments GLUBED (test code = GLUBED) 89 MG/DL 70-105 N [id number] 12:41:00 Test Item Value Reference Range Interpretation Comments GLUBED (test code = GLUBED) 78 MG/DL 70-105 N - CT ABD PELVIS [id number] 12:29:[facility] 1975 Sex: MPatient Name: VALERI BENJAMIN Unit No: [id number] EXAMS: CPT CODE: [id number] CT ABD PELVIS W/CONT 62184 CT Abdomen and Pelvis with contrast. Location: B2 Clinical indication: 45-year-old with intra-abdominal abscess status post colon resection Comparison: None Technique: Computed axial images wereobtained from the diaphragms through the pubic symphysis following IV administration of 100 mL Isovue-300. Up to date CT equipment and radiation [...] lower pole kidney. There is atherosclerotic calcification ofthe abdominal aorta. Pelvis: There is been surgery of the mid sigmoid colon. There is small amount of free air and inflammation adjacent to this, and there appears to be a small disruption in the sigmoid colon wall along its superior aspect.. There is no organized abscess. There is an approximate 4 cmcollection of fluid more inferior, between the prostate and rectum. This does not have clearly organized margins, either free fluid, blood or phlegmon. Normal appendix. Urinary bladder is decompressed.No acute osseous abnormality of the abdomen or pelvis. Impression: 1. Status post surgery of the sigmoid colon. There is a probable small leak within its mid aspect, with some associated extraluminal air and inflammatory stranding. There is no organized abscess at this location. 2. 4 cm collection of nonorganized fluid between the rectum and seminal vesicles. This may be phlegmon or hematoma. Follow-up may be of benefit. at 1229 Reportedand signed by: Nikita Garcia MD Name: VALERI BENJAMIN [facility] Phys: Arleen Ramirez DO [address] : 1975 Age: 45 Sex: M [place] [address] Loc: P.[id number] 1 Exam Date: 09/19/2020 Status: ADM IN PH: FAX: PAGE 1 Signed Report (CONTINUED) Patient Name: VALERI BENJAMIN Unit No: [id number] EXAMS: CPT CODE: [id number] CT ABD PELVIS W/CONT 74936 (Continued) CC: Arleen Charles DO; Hanh Hull DO; Dwayne Bennett MD Technologist: ADDISON Porras(R)(CT) CTDI:13.01 DLP: 685 Trscr Dt/Tm: 09/19/2020 (1229) by:[email or web address] Printed Date/Time: 09/19/2020 (1232) Name: VALERI BENJAMIN [facility] Phys: Arleen Ramirez DO [address] : 1975 Age: 45 Sex: M [place] [address] Loc: P.0719 1 Exam Date: 09/19/2020 Status: ADM IN PH: FAX: PAGE 2 Signed [id number] 08:24:00 Test Item Value Reference Range Interpretation Comments GLUBED (test code = GLUBED) 77 MG/DL 70-105 N CBC W/MANUAL [id number] 06:03:00 Test Item Value Reference Range Interpretation [...] code NORMAL NORMAL = PLTMORPH) BASIC METABOLIC [id number] 04:15:00 Test Item Value Reference Range Interpretation [...] code 8.5 mg/dL 8.8-10.2 L = CA) [id number] 04:15:00 Test Item Value Reference Range Interpretation Comments PHOSPHOROUS (test code = PHOS) 3.1 mg/dL 2.7-4.5 N [id number] 04:15:00 Test Item Value Reference Range Interpretation Comments MAGNESIUM (test code = MAG) 2.0 mg/dL 1.4-2.6 N CBC W/MANUAL [id number] 03:22:00 Test Item Value Reference Range Interpretation [...] code = LYMPH) % 20-40 CBC W/MANUAL [id number] 03:22:00 Test Item Value Reference Range Interpretation [...] code = LYMPH) % 20-40 BASIC METABOLIC [id number] 06:29:00 Test Item Value Reference Range Interpretation [...] code 8.4 mg/dL 8.8-10.2 L = CA) [id number] 06:29:00 Test Item Value Reference Range Interpretation Comments MAGNESIUM (test code = MAG) 2.1 mg/dL 1.4-2.6 N CBC W/AUTO [id number] 05:39:00 Test Item Value Reference Range Interpretation [...] BA#) 0.08 x10 3/uL 0.0-0.20 N SURGICAL [id number] 15:39:00 Test Item Value Reference Range Interpretation Comments SURGICAL SPECIMENS (test code = SURG) RUN DATE: 08/26/20 [facility] - LAB PAGE 1 RUN TIME: 1539 Specimen Inquiry RUN USER: INTERFACE PATIENT: VALERI BENJAMIN LOC: Eliz POD B U #: [id number] AGE/SX: 45/M ROOM: [facility] RE08/25/20[facility] DR: Pawan Baum MD : 71 BED: 1 DIS: STATUS: ADM IN TLOC: SPEC #: [id number] RECD: 08/25/20 STATUS: SOUOtto REQ #: [id number] MUSTAPHA: 08/25/[address] [facility] [address]: Pawan Baum MD ENTERED: 08/25/20 SP TYPE: SURG OTHR DR: Boo Olsen MD, Na Ly DOORDERED: PATHGM5, PATH SPEC, H E STAIN HISTOLOGY: TISSUE ID BLK PCS DONNA LEV / PROCEDURE DISPOSITION ____ ___ ___ ___ ___ COLON SEG NTUMR A 5 1 TISSUES: A. COLON SEGMENTAL [id number] - Sigmoid Colon CLINICAL HISTORY Diverticulitis FINAL DIAGNOSIS SIGMOID COLON, RESECTION: -ACUTE DIVERTICULITIS WITH MICROSCOPIC PERFORATIONS AND ORGANIZING ABSCESS -ONE BENIGN LYMPH NODE -SEROSAL ADHESIONS -NO DYSPLASIA OR MALIGNANCY IS IDENTIFIED CPT 77212 GROSS DESCRIPTION Received in formalin labeled with the patient's name (Tahir), date of , and "sigmoid colon" is [...] The bowel wall does not appear thickened. 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 CM/ta. Signed SIGNATURE ON FILE Sangita Arnett MD 08/26/20 1539 END OF REPORT [facility] W/MANUAL [id number] 08:31:00 Test Item Value Reference Range Interpretation [...] code NORMAL NORMAL = PLTMORPH) BASIC METABOLIC [id number] 06:27:00 Test Item Value Reference Range Interpretation [...] code 8.9 mg/dL 8.8-10.2 N = CA) [id number] 06:27:00 Test Item Value Reference Range Interpretation Comments MAGNESIUM (test code = MAG) 2.1 mg/dL 1.4-2.6 N CBC W/MANUAL [id number] 06:21:00 Test Item Value Reference Range Interpretation [...] code = LYMPH) % 20-40 Novel Coronavirus 2019 [id number] 11:11:00 Test Item Value Reference Range Interpretation Comments Novel Coronavirus Not Detected Not Detected Testing wa s performed 2018 Inhouse (test using the [employer]pt[employer] code = COVNONPUI) SARS-CoV-2 assay.This nucleic acid amplification t est was developed and itsperformance characteristics determined by [facility]. Nucleic acid amplification t ests include PCRand [...] shruthi gnosis of COVID-19 infect ion under fpdvoml990(b)(1 ) of the Act, 21 U.S.C. 360bbb-3(b) [...] resul t in this assay.Performed At: [facility] [place] [address] [place], [place] [id number] brooklyn Catalan MD Ph:[phone] COMPREHENSIVE METABOLIC [id number] 13:25:00 Test Item Value Reference Range Interpretation [...] 45-120 N PHOSPHATASE (test code = ALKP) [id number] 13:25:00 Test Item Value Reference Range Interpretation Comments PREALBUMIN (test code = PREALB) 27.6 MG/ML 15-42 N COMPREHENSIVE METABOLIC [id number] 11:55:00 Test Item Value Reference Range Interpretation [...] 45-120 N PHOSPHATASE (test code = ALKP) [id number] 11:55:00 Test Item Value Reference Range Interpretation Comments PREALBUMIN (test code = PREALB) MG/ML 15-42 CBC W/AUTO [id number] 09:26:00 Test Item Value Reference Range Interpretation [...] BA#) 0.10 x10 3/uL 0.0-0.20 N PROTHROMBIN [id number] 09:26:00 Test Item Value Reference Range Interpretation Comments PROTHROMBIN TIME 11.3 SECONDS 10.3-12.9 N PATIENT (test code = PTP) INTERNATIONAL 1.00 INR UNIT 0.9-1.11 N The INR is us eful only NORMAL RATIO (test for monit oring code = INR) anticoagulant therapy.It may be unreliable in t he initial phase o f antigoagulation and in unstable patien ts. Indication for Anticoagulation Recommended INR 1. Prevention of v enous thomboembolism 2.0-3.0in high- risk patients; treat ment of venousthrombosi s and pulmonary embol ism aftera course o f heparin; preven tion of systemicembolis m in a variety of cond itions, including atria l fibrillation an d prothetic tissu e heart valves, 2. Pros thetic mechanical hear t valves; 2.5-3.5recurren t systemic emboli sm. THROMBOPLASTIN TIME [id number] 09:26:00 Test Item Value Reference Range Interpretation Comments THROMBOPLASTIN TIME 27.8 SECONDS 23.8-34.8 N INTERPRE TATIVE PARTIAL (test code = DATA: erapeutic PTT) range: Unfractionated heparin:55 - 80 seconds Argatroban:1.5 to 3 times the basel ine PTT
--- NOTE | 2022-05-22 14:29 | ER ---
Nurse's Notes [facility] Name: Xiomara Haro Age: 47 yrs Sex: Male : 1975 Arrival Date: 05/22/2022 Time: 13:37 Bed 9 Private MD: Hanh Hull Diagnosis: Cellulitis, unspecified Presentation: 05/22 14:13 Chief complaint: Patient states: "I think I got a spider bite." Redness and swelling ss noted to R elbow. Pt reports that he noticed it at 0200 this am. Coronavirus screen: Client denies travel out of the [place] in the last 14 days. Ebola Screen: Patient denies exposure to infectious person. Patient denies travel to an Ebola-affected area in the 21 days before illness onset. Initial Sepsis Screen: Does the patient meet any 2 criteria? No. Patient's initial sepsis screen is negative. Does the patient have a suspected source of infection? No. Patient's initial sepsis screen is negative. Risk Assessment: Do you want to hurt yourself or someone else? Patient reports no desire to harm self or others. Onset of symptoms was May 22, 2022. 14:13 Method Of Arrival: Ambulatory ss 14:13 Acuity: DULCE 4 ss Historical: - Allergies: 14:15 No Known Allergies; ss - Home Meds: 14:15 aspirin 81 mg Oral chew 1 tab once daily [Active]; losartan 25 mg Oral tab 1 tab once ss daily [Active]; rosuvastatin 5 mg oral tab 1 tab once daily [Active]; testosterone therapy [Active]; - PMHx: 14:15 Diverticulitis; Myocardial infarction; "stress induced"; ss - PSHx: 14:15 Colon resection; Hernia repair x 4; ss - Immunization history:: Client reports having NOT received the Covid vaccine. - Social history:: Smoking status: Patient denies any tobacco usage or history of. Screenin:44 Abuse screen: Denies threats or abuse. Denies injuries from another. Nutritional hb screening: No deficits noted. Tuberculosis screening: No symptoms or risk factors identified. Fall Risk None identified. Assessment: 14:44 General: Appears in no apparent distress. Behavior is calm, cooperative. Pain: Pain hb currently is 3 out of 10 on a pain scale. Neuro: Level of Consciousness is awake, alert, obeys commands, Oriented to person, place, time, situation. Cardiovascular: Patient's skin is warm and dry. Respiratory: Respiratory effort is even, unlabored, Respiratory pattern is regular, symmetrical. GI: No signs and/or symptoms were reported involving the gastrointestinal system. : No signs and/or symptoms were reported regarding the genitourinary system. EENT: No signs and/or symptoms were reported regarding the EENT system. Derm: Skin is pink, warm \\T\\ dry. mild swelling and redness noted to right elbow. Vital Signs: 14:13 BP 122 / 86; Pulse 83; Resp 16; Temp 98.6(TE); Pulse Ox 100% on R/A; Weight 86.64 kg; ss Height 5 ft. 10 in. (177.80 cm); Pain 3/10; 14:13 Body Mass Index 27.41 (86.64 kg, 177.80 cm) ED Course: 13:37 Patient arrived in ED. mr 13:37 Hanh Hull MD is Private Physician. mr 13:42 [facility] is [facility]. 9 13:42 Naseem Xie MD is Attending Physician. jl9 14:15 Triage completed. ss 14:15 Arm band placed on left wrist. 14:44 Marcelina Briones, RN is Primary Nurse. hb 14:44 Patient has correct armband on for positive identification. hb 14:51 No provider procedures requiring assistance completed. Patient did not have IV access hb during this emergency room visit. Administered Medications: No medications were administered Medication: 14:44 VIS not applicable for this client. hb Outcome: 14:28 Discharge ordered by . jl9 14:51 Discharged to home hb 14:51 Condition: stable 14:51 Discharge instructions given to patient, Instructed on discharge instructions, follow up and referral plans. medication usage, Demonstrated understanding of instructions, follow-up care, medications, Prescriptions given X 1. 14:52 Patient left the ED. hb Signatures: Crystal Muniz Mayra Nash, BITA RN Marcelina Briones, BITA RN Neo Luevano jl9 Corrections: (The following items were deleted from the chart) 14:17 14:15 Allergies: HYDROCODONE; [facility]
--- NOTE | 2022-05-22 14:29 | EDPHYS ---
Physician Documentation [facility] Name: Xiomara Haro Age: 47 yrs Sex: Male : 1975 Arrival Date: 05/22/2022 Time: 13:37 Bed 9 Private MD: Hanh Hull ED Physician Naseem Xie HPI: 05/22 14:26 This 47 yrs old Male presents to ER via Ambulatory with complaints of Insect jl9 Bite. Patient reports that he was cleaning out his shed yesterday and he may have been bitten by something. . 14:26 Onset: The symptoms/episode began/occurred yesterday. The patient has not experienced jl9 similar symptoms in the past. Historical: - Allergies: 14:15 No Known Allergies; ss - Home Meds: 14:15 aspirin 81 mg Oral chew 1 tab once daily [Active]; losartan 25 mg Oral tab 1 tab once ss daily [Active]; rosuvastatin 5 mg oral tab 1 tab once daily [Active]; testosterone therapy [Active]; - PMHx: 14:15 Diverticulitis; Myocardial infarction; "stress induced"; ss - PSHx: 14:15 Colon resection; Hernia repair x 4; ss - Immunization history:: Client reports having NOT received the Covid vaccine. - Social history:: Smoking status: Patient denies any tobacco usage or history of. ROS: 14:26 Constitutional: Negative for fever, chills, and weight loss, Eyes: Negative for injury, jl9 pain, redness, and discharge, ENT: Negative for injury, pain, and discharge, Neck: Negative for injury, pain, and swelling, Cardiovascular: Negative for chest pain, palpitations, and edema, Respiratory: Negative for shortness of breath, cough, wheezing, and pleuritic chest pain, Abdomen/GI: Negative for abdominal pain, nausea, vomiting, diarrhea, and constipation, Back: Negative for injury and pain, MS/Extremity: Negative for injury and deformity. 14:26 Neuro: Negative for headache, weakness, numbness, tingling, and seizure, Psych: Negative for depression, anxiety, suicide ideation, homicidal ideation, and hallucinations, Allergy/Immunology: Negative for hives, rash, and allergies, Endocrine: Negative for neck swelling, polydipsia, polyuria, polyphagia, and marked weight changes, Hematologic/Lymphatic: Negative for swollen nodes, abnormal bleeding, and unusual bruising. 14:26 Skin: Positive for cellulitis, erythema. Exam: 14:27 Constitutional: This is a well developed, well nourished patient who is awake, alert, jl9 and in no acute distress. Head/Face: Normocephalic, atraumatic. Eyes: Pupils equal round and reactive to light, extra-ocular motions intact. Lids and lashes normal. Conjunctiva and sclera are non-icteric and not injected. Cornea within normal limits. Periorbital areas with no swelling, redness, or edema. ENT: Mucous membranes moist. Neck: Trachea midline, no thyromegaly or masses palpated, and no cervical lymphadenopathy. Supple, full range of motion without nuchal rigidity, or vertebral point tenderness. No Meningismus. Chest/axilla: Normal chest wall appearance and motion. Nontender with no deformity. No lesions are appreciated. Cardiovascular: Regular rate and rhythm with a normal S1 and S2. No gallops, murmurs, or rubs. Normal PMI, no JVD. No pulse deficits. Respiratory: Lungs have equal breath sounds bilaterally, clear to auscultation and percussion. No rales, rhonchi or wheezes noted. No increased work of breathing, no retractions or nasal flaring. Abdomen/GI: Soft, non-tender, with normal bowel sounds. No distension or tympany. No guarding or rebound. No evidence of tenderness throughout. Back: No spinal tenderness. No costovertebral tenderness. Full range of motion. 14:27 MS/ Extremity: Pulses equal, no cyanosis. Neurovascular intact. Full, normal range of motion. Neuro: Awake and alert, GCS 15, oriented to person, place, time, and situation. Cranial nerves II-XII grossly intact. Motor strength 5/5 in all extremities. Sensory grossly intact. Cerebellar exam normal. Normal gait. Psych: Awake, alert, with orientation to person, place and time. Behavior, mood, and affect are within normal limits. 14:27 Skin: cellulitis, that is mild, on the right elbow., 2x2 area. Vital Signs: 14:13 BP 122 / 86; Pulse 83; Resp 16; Temp 98.6(TE); Pulse Ox 100% on R/A; Weight 86.64 kg; ss Height 5 ft. 10 in. (177.80 cm); Pain 3/10; 14:13 Body Mass Index 27.41 (86.64 kg, 177.80 cm) MDM: 13:43 Patient medically screened. jl9 14:27 Data reviewed: vital signs, nurses notes. Counseling: I had a detailed discussion with jl9 the patient and/or guardian regarding: the historical points, exam findings, and any diagnostic results supporting the discharge/admit diagnosis, the need for outpatient follow up, to return to the emergency department if symptoms worsen or persist or if there are any questions or concerns that arise at home. Administered Medications: No medications were administered Disposition Summary: 05/22/22 14:28 Discharge Ordered Location: Home jl9 Condition: Stable jl9 Diagnosis - Cellulitis, unspecified jl9 Followup: jl9 - With: Private Physician - When: 1 - 2 days - Reason: Recheck today's complaints, Continuance of care, Re-evaluation by your physician Discharge Instructions: - Discharge Summary Sheet jl9 - Cellulitis, Adult jl9 - Spider Bite, [id number] jl9 Forms: - Medication Reconciliation Form jl9 - Work release form eb - Thank You Letter jl9 - Antibiotic Education jl9 - Prescription Opioid Use jl9 Prescriptions: - Cephalexin 500 mg Oral Capsule - take 1 capsule by ORAL route every 6 hours for 10 days; 40 capsule; Refills: 0, jl9 Product Selection Permitted Signatures: Mayra Bolivar, RN RN Neo Larkin jl9 Corrections: (The following items were deleted from the chart) 14:17 14:15 Allergies: HYDROCODONE; [facility]
[2022-05-22 15:37] VITALS: BP 122/86; TEMP 98.6; O2SAT 100
== END 2022-05-22 14:52 | disposition home or self-care (01) ==
LOC: ER 13:34
DX: L03.113 Cellulitis of right upper limb (principal); I25.2 Old myocardial infarction; Z79.82 Long term (current) use of aspirin
CPT/HCPCS: 99282

== ENCOUNTER 2022-11-03 11:17 | Emergency (ER) | payer OTHER ==
--- OUTSIDE RECORDS SUMMARY | 2022-11-03 11:35 | XMS REPORT | Continuity of Care Document ---
:1975 Author Organization [facility] t Address [address] [place] [address] Care Team Providers Name Role Phone Hanh Gordon DO Primary Care Physician Hanh GORDON Attending Clinician Unavailable Dwayne Bennett Attending Clinician Unavailable Pawan Baum Attending Clinician Unavailable Elias GILES, Anthony Attending Clinician Haylee Marvin Attending Clinician [phone] Dwayne Bennett Admitting Clinician Unavailable Hanh Gordon Admitting Clinician Unavailable Payers Payer Name Policy Type Policy Number Effective Date Expiration Date Maxime mejias [place] [address] [id number] 2022 Common [facility] 00:00:00 - [facility] ter BSBCBS CHOICE [id number] 2019 Methodi [facility]/FEDERAL EMPL 00:00:00 Hospital [id number] /09/2018-PresentP PO Problems Condition Condition Condition Status Onset Resolution Last Treating Co mments Source Name Details Category Date Date Treatment Clinician Date [id number] Chronic Problem Common fatigue [facility] [id number] Insomnia, Problem Com mon unspecifie Spirit d type - [facility] Allergic Allergic Problem Commo n rhinitis rhinitis Spirit due to due to - [facility] pollen pollen [facility] [id number] Hx of Problem Common colectomy [facility] Right Right Problem Common inguinal inguinal Spirit hernia hernia [facility] [id number] Mixed Problem Common hyperlipid Spirit emia [facility] Allergic Acute Problem Common rhinitis allergic Spirit rhinitis [facility] Indigestio Indigestio Problem C ommon n n [facility] [id number] Mild Problem Common depression [facility] Diverticul Diverticul Problem C ommon itis itis [facility] Vitamin D Vitamin D Problem Com mon deficiency deficiency [facility] [id number] Other Problem Common chronic Spirit pain [facility] [id number] Neuropathy Problem Co mmon 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 Family History Family Member Diagnosis Comments Start Date Stop Date Source Natural father No Known Problems Met [facility] Natural mother No Known Problems Met [facility] Social History Social Habit Start Date Stop Date Quantity Comments Source History of Common Spirit - Tobacco Use [facility] Sex Assigned At Common Sp rj - [facility] Alcohol intake 2019-06-20 2019-06-20 Current drinker [facility] 00:00:00 00:00:00 of [facility] (finding) Alcohol Comment 2019-02-07 2019-02-07 Socially [facility]-Ism 00:00:00 00:00:00 Hospital Tobacco use and 2019-02-07 2019-02-07 Smokeless tobacco [facility] exposure 00:00:00 00:00:00 non-user Hospital Smoking Status Start Date Stop Date Source Former Smoker 2022-09-29 00:00:2022-09-19 00:00:00 Common S pirit - [facility] Medications Ordered Filled Start Stop Current Ordering Indication Dosage Frequency Signature Comments Components Source Medication Medication Date Date Medication? Clinician (SIG) Name Name allergy allergy 2022-0 No .5mL Common extract extract 2 Spirit 00:00: - [facility] allergy allergy 2023-0 No .5mL Common extract extract 10-20 Spirit 00:00: - [facility] allergy allergy 3-0 No .45mL Common extract extract 2 Spirit 00:00: - [facility] allergy allergy 3-0 No .45mL Common extract extract 2 Spirit 00:00: - [facility] allergy allergy 3-0 No .45mL Common extract extract 10-13 Spirit 00:00: - [facility] allergy allergy 3-0 No .45mL Common extract extract 10-13 Spirit 00:00: - [facility] allergy allergy 3-0 No .4mL Common extract extract 10-06 Spirit 00:00: - [facility] allergy allergy 2023-0 No .4mL Common extract extract 10-06 Spirit 00:00: - [facility] allergy allergy 2023-0 No .4mL Common extract extract 10-06 Spirit 00:00: - [facility] allergy allergy 2023-0 No .4mL Common extract extract 10-06 Spirit 00:00: - [facility] allergy allergy 2023-0 No .4mL Common extract extract - Spirit 00:00: - [facility] allergy allergy 2023-0 No .4mL Common extract extract - Spirit 00:00: - [facility]I 00 [facility] allergy allergy 2023-0 No .35mL Common extract extract 09-29 Spirit 00:00: - [facility] 00 [facility] allergy allergy 2023-0 No .35mL Common extract extract 09-29 Spirit 00:00: - [facility] 00 [facility] allergy allergy 2023-0 No .35mL Common extract extract 09-29 Spirit 00:00: - [facility] allergy allergy 2023-0 No .35mL Common extract extract 09-29 Spirit 00:00: - [facility] 00 [facility] allergy allergy 3-0 No .35mL Common extract extract 1-19 Spirit 00:00: - [facility] 00 [facility] allergy allergy 3-0 No .35mL Common extract extract 1-19 Spirit 00:00: - [facility] 00 [facility] allergy allergy 3-0 No .35mL Common extract extract 1-19 Spirit 00:00: - [facility] 00 [facility] allergy allergy 3-0 No .35mL Common extract extract 1-19 Spirit 00:00: - [facility] 00 [facility] allergy allergy 3-0 No .3mL Common extract extract 1-12 Spirit 00:00: - [facility] 00 [facility] allergy allergy 3-0 No .3mL Common extract extract 1-12 Spirit 00:00: - [facility] allergy allergy 3-0 No .3mL Common extract extract 1-12 Spirit 00:00: - [facility] allergy allergy 3-0 No .3mL Common extract extract 1-12 Spirit 00:00: - [facility] allergy allergy 3-0 No .3mL Common extract extract 1-12 Spirit 00:00: - [facility] 00 [facility] allergy allergy 3-0 No .3mL Common extract extract 1-12 Spirit 00:00: - [facility] allergy allergy 3-0 No .3mL Common extract extract 1-12 Spirit 00:00: - [facility] allergy allergy 3-0 No .3mL Common extract extract 1-12 Spirit 00:00: - [facility] 00 [facility] allergy allergy 2023-0 No .3mL Common extract extract 1-12 Spirit 00:00: - [facility] 00 [facility] allergy allergy 3-0 No .3mL Common extract extract 1-12 Spirit 00:00: - [facility] 00 [facility] allergy allergy 3-0 No .3mL Common extract extract 1-12 Spirit 00:00: - [facility] 00 [facility] allergy allergy 2023-0 No .3mL Common extract extract 1-12 Spirit 00:00: - [facility] 00 [facility] allergy allergy 3-0 No .25mL Common extract extract 1-05 Spirit 00:00: - [facility] 00 [facility] allergy allergy 2023-0 No .25mL Common extract extract 1-05 Spirit 00:00: - [facility] 00 [facility] allergy allergy 3-0 No .25mL Common extract extract 1-05 Spirit 00:00: - [facility] 00 [facility] allergy allergy 3-0 No .25mL Common extract extract 1-05 Spirit 00:00: - [facility]I 00 [facility] allergy allergy 3-0 No .25mL Common extract extract 1-05 Spirit 00:00: - [facility]I 00 [facility] allergy allergy 3-0 No .25mL Common extract extract 1-05 Spirit 00:00: - [facility] 00 [facility] allergy allergy 3-0 No .25mL Common extract extract 1-05 Spirit 00:00: - [facility] 00 [facility] allergy allergy 3-0 No .25mL Common extract extract 1-05 Spirit 00:00: - [facility] 00 [facility] allergy allergy 3-0 No .25mL Common extract extract 1-05 Spirit 00:00: - [facility] 00 [facility] allergy allergy 3-0 No .25mL Common extract extract 1-05 Spirit 00:00: - [facility]I 00 [facility] allergy allergy 3-0 No .25mL Common extract extract 1-05 Spirit 00:00: - [facility]I 00 [facility] allergy allergy 3-0 No .25mL Common extract extract 1-05 Spirit 00:00: - [facility]I 00 [facility] allergy allergy 3-0 No .25mL Common extract extract 1-05 Spirit 00:00: - [facility]I 00 [facility] allergy allergy 2023-0 No .25mL Common extract extract 1-05 Spirit 00:00: - [facility]I 00 [facility] allergy allergy 2-1 No .2mL Common extract extract 2-29 Spirit 00:00: - [facility]I 00 [facility] allergy allergy 2-1 No .2mL Common extract extract 2-29 Spirit 00:00: - [facility]I 00 [facility] allergy allergy 2-1 No .2mL Common extract extract 2-29 Spirit 00:00: - [facility]I 00 [facility] allergy allergy 2-1 No .2mL Common extract extract 2-29 Spirit 00:00: - [facility]I 00 [facility] allergy allergy 2021-09 No .2mL Common extract extract 2-29 Spirit 00:00: - [facility]I 00 [facility] allergy allergy 2021-09 No .2mL Common extract extract 2-29 Spirit 00:00: - [facility]I 00 [facility] allergy allergy 2021-09 No .2mL Common extract extract 2-29 Spirit 00:00: - [facility] 00 [facility] allergy allergy 2021-09 No .2mL Common extract extract 2-29 Spirit 00:00: - [facility]I 00 [facility] allergy allergy 2021-09 No .2mL Common extract extract 2-29 Spirit 00:00: - [facility]I 00 [facility] allergy allergy 2021-09 No .2mL Common extract extract 2- Spirit 00:00: - [facility]I 00 [facility] allergy allergy 2021-09 No .2mL Common extract extract 2- Spirit 00:00: - [facility] allergy allergy 2021-09 No .2mL Common extract extract 2- Spirit 00:00: - [facility]I 00 [facility] allergy allergy 2021-09 No .2mL Common extract extract 2- Spirit 00:00: - [facility] 00 [facility] allergy allergy 2021-09 No .2mL Common extract extract 2- Spirit 00:00: - [facility]I 00 [facility] allergy allergy 2021-09 No .2mL Common extract extract 2- Spirit 00:00: - [facility]I 00 [facility] allergy allergy 2021-09 No .2mL Common extract extract 2-29 Spirit 00:00: - [facility] allergy allergy 2021- No .15mL Common extract extract 2-22 Spirit 00:00: - [facility]I 00 [facility] allergy allergy 2021- No .15mL Common extract extract 2-22 Spirit 00:00: - [facility]I 00 [facility] allergy allergy 2021- No .15mL Common extract extract 2-22 Spirit 00:00: - [facility]I 00 [facility] allergy allergy 2021- No .15mL Common extract extract 2-22 Spirit 00:00: - [facility]I 00 [facility] allergy allergy 2021- No .15mL Common extract extract 2-22 Spirit 00:00: - [facility] 00 [facility] allergy allergy 2021- No .15mL Common extract extract 2-22 Spirit 00:00: - [facility] 00 [facility] allergy allergy 2021-09 No .15mL Common extract extract 2-22 Spirit 00:00: - [facility]I 00 [facility] allergy allergy 2021-09 No .15mL Common extract extract 2-22 Spirit 00:00: - [facility]I 00 [facility] allergy allergy 2021-09 No .15mL Common extract extract 2-22 Spirit 00:00: - [facility]I 00 [facility] allergy allergy 2021-09 No .15mL Common extract extract 2-22 Spirit 00:00: - [facility]I 00 [facility] allergy allergy 2021-09 No .15mL Common extract extract 2-22 Spirit 00:00: - [facility]I 00 [facility] allergy allergy 2021-09 No .15mL Common extract extract 2-22 Spirit 00:00: - [facility]I 00 [facility] allergy allergy 2021-09 No .15mL Common extract extract 2-22 Spirit 00:00: - [facility]I 00 [facility] allergy allergy 2021-09 No .15mL Common extract extract 2-22 Spirit 00:00: - CHI 00 [facility] allergy allergy 2021-09 No .15mL Common extract extract 2-22 Spirit 00:00: - [facility]I 00 [facility] allergy allergy 2021-09 No .15mL Common extract extract 2-22 Spirit 00:00: - [facility]I 00 [facility] allergy allergy 2021-09 No .15mL Common extract extract 2-22 Spirit 00:00: - [facility]I 00 [facility] allergy allergy 2021-09 No .15mL Common extract extract 2-22 Spirit 00:00: - [facility] 00 [facility] allergy allergy 2021-09 No .15mL Common extract extract 2-22 Spirit 00:00: - [facility] 00 [facility] allergy allergy 2021-09 No .15mL Common extract extract 2-22 Spirit 00:00: - [facility]I 00 [facility] allergy allergy 2021-09 No .15mL Common extract extract 2-22 Spirit 00:00: - [facility] 00 [facility] allergy allergy 2021- No .15mL Common extract extract 2-22 Spirit 00:00: - [facility] 00 [facility] allergy allergy 2021- No .15mL Common extract extract 2-22 Spirit 00:00: - [facility] 00 [facility] allergy allergy 2021- No .15mL Common extract extract 2-22 Spirit 00:00: - [facility] 00 [facility] allergy allergy 2021- No .5mL Common extract extract 2-15 Spirit 00:00: - [facility] 00 [facility] allergy allergy 2021- No .5mL Common extract extract 2-15 Spirit 00:00: - [facility] 00 [facility] allergy allergy 2021- No .5mL Common extract extract 2-15 Spirit 00:00: - [facility] 00 [facility] allergy allergy 2021-09 No .5mL Common extract extract 2-15 Spirit 00:00: - [facility] 00 [facility] allergy allergy 2021- No .5mL Common extract extract 2-15 Spirit 00:00: - [facility] 00 [facility] allergy allergy 2021- No .5mL Common extract extract 2-15 Spirit 00:00: - [facility] 00 [facility] allergy allergy 2021- No .5mL Common extract extract 2-15 Spirit 00:00: - [facility] 00 [facility] allergy allergy 2021- No .5mL Common extract extract 2-15 Spirit 00:00: - [facility] 00 [facility] allergy allergy 2021- No .5mL Common extract extract 2-15 Spirit 00:00: - [facility] 00 [facility] allergy allergy 2021- No .5mL Common extract extract 2-15 Spirit 00:00: - [facility] 00 [facility] allergy allergy 2021- No .5mL Common extract extract 2-15 Spirit 00:00: - [facility] 00 [facility] allergy allergy 2021- No .5mL Common extract extract 2-15 Spirit 00:00: - [facility] 00 [facility] allergy allergy 2021- No .5mL Common extract extract 2-08 Spirit 00:00: - [facility] 00 [facility] allergy allergy 2021- No .5mL Common extract extract 2-08 Spirit 00:00: - [facility] 00 [facility] allergy allergy 2021- No .5mL Common extract extract 2-08 Spirit 00:00: - [facility] 00 [facility] allergy allergy 2021- No .5mL Common extract extract 2-08 Spirit 00:00: - [facility] 00 [facility] allergy allergy 2021- No .5mL Common extract extract 2-08 Spirit 00:00: - [facility] 00 [facility] allergy allergy 2021- No .5mL Common extract extract 2-08 Spirit 00:00: - [facility] 00 [facility] allergy allergy 2021- No .5mL Common extract extract 2-08 Spirit 00:00: - [facility] 00 [facility] allergy allergy 2021- No .5mL Common extract extract 2-08 Spirit 00:00: - [facility] 00 [facility] allergy allergy 2021- No .5mL Common extract extract 2-08 Spirit 00:00: - [facility] 00 [facility] allergy allergy 2021- No .5mL Common extract extract 2-08 Spirit 00:00: - [facility] 00 [facility] allergy allergy 2021- No .5mL Common extract extract 2-08 Spirit 00:00: - [facility] 00 [facility] allergy allergy 2021- No .5mL Common extract extract 2-08 Spirit 00:00: - [facility] 00 [facility] allergy allergy 2021- No .5mL Common extract extract 2-01 Spirit 00:00: - [facility] 00 [facility] allergy allergy 2021- No .5mL Common extract extract 2- Spirit 00:00: - [facility] 00 [facility] allergy allergy 2021- No .5mL Common extract extract 2- Spirit 00:00: - [facility] 00 [facility] allergy allergy 2021- No .5mL Common extract extract 2-01 Spirit 00:00: - [facility] 00 [facility] allergy allergy 2021- No .5mL Common extract extract 2- Spirit 00:00: - [facility] 00 [facility] allergy allergy 2021- No .5mL Common extract extract 2- Spirit 00:00: - [facility] 00 [facility] allergy allergy 2021- No .5mL Common extract extract 2- Spirit 00:00: - [facility] 00 [facility] allergy allergy 2021- No .5mL Common extract extract 2- Spirit 00:00: - [facility] 00 [facility] allergy allergy 2021- No .5mL Common extract extract 2- Spirit 00:00: - [facility] 00 [facility] allergy allergy 2021-09 No .5mL Common extract extract 2- Spirit 00:00: - [facility] 00 [facility] allergy allergy 2021-09 No .5mL Common extract extract 2- Spirit 00:00: - [facility] 00 [facility] allergy allergy 2021-09 No .5mL Common extract extract 2- Spirit 00:00: - [facility] 00 [facility] allergy allergy 2021-09 No .5mL Common extract extract 2- Spirit 00:00: - [facility] 00 [facility] allergy allergy 2021-09 No .5mL Common extract extract 1-22 Spirit 00:00: - [facility] 00 [facility] allergy allergy 2021-09 No .5mL Common extract extract 1- Spirit 00:00: - [facility] 00 [facility] allergy allergy 2021-09 No .5mL Common extract extract - Spirit 00:00: - [facility] 00 [facility] allergy allergy 2021-09 No .5mL Common extract extract 1-22 Spirit 00:00: - [facility] 00 [facility] allergy allergy 2021-09 No .5mL Common extract extract 1- Spirit 00:00: - [facility] 00 [facility] allergy allergy 2021-09 No .5mL Common extract extract 1- Spirit 00:00: - [facility] 00 [facility] allergy allergy 2021-09 No .5mL Common extract extract - Spirit 00:00: - [facility] 00 [facility] allergy allergy 2021-09 No .5mL Common extract extract 1-22 Spirit 00:00: - [facility] 00 [facility] allergy allergy 2021- No .5mL Common extract extract 1-22 Spirit 00:00: - [facility] 00 [facility] allergy allergy 2021-09 No .5mL Common extract extract 1-22 [facility] 00:00: - [facility] 00 [facility] allergy allergy 2021- No .5mL Common extract extract 1-22 Spirit 00:00: - [facility] 00 [facility] allergy allergy 2021- No .5mL Common extract extract 1-22 [facility] 00:00: - [facility] 00 [facility] allergy allergy 2021- No .5mL Common extract extract 1-22 [facility] 00:00: - [facility] 00 [facility] allergy allergy 2021-09 No .5mL Common extract extract 1-22 [facility] 00:00: - [facility] 00 [facility] allergy allergy 2021-09 No .5mL Common extract extract 1-22 [facility] 00:00: - [facility] 00 [facility] allergy allergy 2021-09 No .5mL Common extract extract 1-22 [facility] 00:00: - [facility] 00 [facility] allergy allergy 2021-09 No .5mL Common extract extract 1-22 [facility] 00:00: - [facility] 00 [facility] allergy allergy 2021-09 No .5mL Common extract extract 1-22 [facility] 00:00: - [facility] 00 [facility] allergy allergy 2021-09 No .5mL Common extract extract 1-22 [facility] 00:00: - [facility] 00 [facility] allergy allergy 2021-09 No .5mL Common extract extract 1-22 [facility] 00:00: - [facility] 00 [facility] allergy allergy 2021-09 No .5mL Common extract extract 1-22 [facility] 00:00: - [facility] 00 [facility] allergy allergy 2021-09 No .5mL Common extract extract 1-22 [facility] 00:00: - [facility] 00 [facility] allergy allergy 2021-09 No .5mL Common extract extract 1-22 [facility] 00:00: - [facility] 00 [facility] allergy allergy 2021-09 No .5mL Common extract extract 1-22 [facility] 00:00: - [facility] 00 [facility] allergy allergy 2021-09 No .5mL Common extract extract 1-22 [facility] 00:00: - [facility] 00 [facility] allergy allergy 2021-09 No .5mL Common extract extract 1-22 [facility] 00:00: - [facility] 00 [facility] allergy allergy 2021-09 No .5mL Common extract extract 1-22 [facility] 00:00: - [facility] 00 [facility] allergy allergy 2021-09 No .5mL Common extract extract 1-22 [facility] 00:00: - [facility] 00 [facility] allergy allergy 2021-09 No .5mL Common extract extract 1-22 [facility] 00:00: - [facility] 00 [facility] allergy allergy 2021-09 No .5mL Common extract extract 1-22 [facility] 00:00: - [facility] 00 [facility] allergy allergy 2021- No .4mL Common extract extract 1-17 [facility] 00:00: - [facility] 00 [facility] allergy allergy 2021-09 No .4mL Common extract extract 1-17 [facility] 00:00: - [facility] 00 [facility] allergy allergy 2021-09 No .4mL Common extract extract 1-17 [facility] 00:00: - [facility] 00 [facility] allergy allergy 2021-09 No .4mL Common extract extract 1-17 [facility] 00:00: - [facility] 00 [facility] allergy allergy 2021-09 No .4mL Common extract extract 1-17 [facility] 00:00: - [facility] 00 [facility] allergy allergy 2021-09 No .4mL Common extract extract 1-17 [facility] 00:00: - [facility] 00 [facility] allergy allergy 2021-09 No .4mL Common extract extract 1-17 [facility] 00:00: - [facility] 00 [facility] allergy allergy 2021-09 No .4mL Common extract extract 1-17 [facility] 00:00: - [facility] 00 [facility] allergy allergy 2021-09 No .4mL Common extract extract 1-17 [facility] 00:00: - [facility] 00 [facility] allergy allergy 2021-09 No .4mL Common extract extract 1-17 [facility] 00:00: - [facility] 00 [facility] allergy allergy 2021-09 No .4mL Common extract extract 1-17 [facility] 00:00: - [facility] 00 [facility] allergy allergy 2021-09 No .4mL Common extract extract 1-17 [facility] 00:00: - [facility] 00 [facility] allergy allergy 2021-09 No .4mL Common extract extract 1-17 [facility] 00:00: - [facility] 00 [facility] allergy allergy 2021-09 No .4mL Common extract extract 1-17 [facility] 00:00: - [facility] 00 [facility] allergy allergy 2021-09 No .4mL Common extract extract 1-17 [facility] 00:00: - [facility] 00 [facility] allergy allergy 2021-09 No .4mL Common extract extract 1-10 [facility] 00:00: - [facility] 00 [facility] allergy allergy 2021-09 No .4mL Common extract extract 1-10 [facility] 00:00: - [facility] 00 [facility] allergy allergy 2021- No .4mL Common extract extract 1-10 [facility] 00:00: - [facility] 00 [facility] allergy allergy 2021-09 No .4mL Common extract extract 1-10 [facility] 00:00: - [facility] 00 [facility] allergy allergy 2021-09 No .4mL Common extract extract 1-10 [facility] 00:00: - [facility] 00 [facility] allergy allergy 2021-09 No .4mL Common extract extract 1-10 [facility] 00:00: - [facility] 00 [facility] allergy allergy 2021-09 No .4mL Common extract extract 1-10 [facility] 00:00: - [facility] 00 [facility] allergy allergy 2021-09 No .4mL Common extract extract 1-10 [facility] 00:00: - [facility] 00 [facility] allergy allergy 2021-09 No .4mL Common extract extract 1-10 [facility] 00:00: - [facility] allergy allergy 2021-09 No .4mL Common extract extract 1-10 [facility] 00:00: - [facility] allergy allergy 2021-09 No .4mL Common extract extract 1-10 [facility] 00:00: - [facility] allergy allergy 2021-09 No .4mL Common extract extract 1-10 [facility] 00:00: - [facility] allergy allergy 2021-09 No .4mL Common extract extract 1-10 [facility] 00:00: - [facility] allergy allergy 2021-09 No .4mL Common extract extract 1-10 [facility] 00:00: - [facility] allergy allergy 2021-09 No .4mL Common extract extract 1-10 [facility] 00:00: - [facility] 00 [facility] allergy allergy 2021-09 No .4mL Common extract extract 1-10 [facility] 00:00: - [facility] 00 [facility] allergy allergy 2021-09 No .4mL Common extract extract 1-10 [facility] 00:00: - [facility] 00 [facility] allergy allergy 2021-09 No .4mL Common extract extract 1-10 [facility] 00:00: - [facility] 00 [facility] allergy allergy 2021-09 No .4mL Common extract extract 1-10 [facility] 00:00: - [facility] 00 [facility] allergy allergy 2021-09 No .4mL Common extract extract 1-10 [facility] 00:00: - [facility] 00 [facility] allergy allergy 2021-09 No .4mL Common extract extract 1-10 [facility] 00:00: - [facility] 00 [facility] allergy allergy 2021-09 No .4mL Common extract extract 1-10 Spirit 00:00: - [facility] allergy allergy 2021-09 No .4mL Common extract extract 1-10 [facility] 00[facility]00: - [facility] allergy allergy 2021-09 No .4mL Common extract extract 1-10 [facility] 00:00: - [facility] allergy allergy 2021-09 No .4mL Common extract extract 1-10 [facility] 00:00: - [facility] allergy allergy 2021-09 No .4mL Common extract extract 1-10 [facility] 00:00: - [facility] allergy allergy 2021-09 No .4mL Common extract extract 1-10 [facility] 00:00: - [facility] allergy allergy 2021-09 No .4mL Common extract extract 1-10 [facility] 00:00: - [facility] allergy allergy 2021-09 No .4mL Common extract extract 1-10 [facility] 00:00: - [facility] allergy allergy 2021-09 No .4mL Common extract extract 1-10 [facility] 00:00: - [facility] allergy allergy 2021-09 No .4mL Common extract extract 1-10 [facility] 00:00: - [facility] allergy allergy 2021-09 No .4mL Common extract extract 1-10 [facility] 00:00: - [facility] allergy allergy 2021-09 No .35mL Common extract extract 1-03 [facility] 00:00: - [facility] allergy allergy 2021-09 No .3mL Common extract extract 1-03 [facility] 00:00: - [facility] allergy allergy 2021-09 No .35mL Common extract extract 1-03 [facility] 00:00: - [facility] allergy allergy 2021-09 No .3mL Common extract extract 1-03 [facility] 00:00: - [facility] allergy allergy 2021-09 No .35mL Common extract extract 1-03 [facility] 00:00: - [facility] allergy allergy 2021-09 No .3mL Common extract extract 1-03 [facility] 00:00: - [facility] allergy allergy 2021-09 No .35mL Common extract extract 1-03 [facility] 00:00: - [facility] allergy allergy 2021-09 No .3mL Common extract extract 1-03 [facility] 00:00: - [facility] allergy allergy 2021-09 No .35mL Common extract extract 1-03 [facility] 00:00: - [facility] allergy allergy 2021-09 No .3mL Common extract extract 1-03 [facility] 00:00: - [facility] allergy allergy 2021-09 No .35mL Common extract extract 1-03 [facility] 00:00: - [facility] allergy allergy 2021-09 No .3mL Common extract extract 1-03 [facility] 00:00: - [facility] allergy allergy 2021-09 No .35mL Common extract extract 1-03 [facility] 00:00: - [facility] allergy allergy 2021-09 No .3mL Common extract extract 1-03 [facility] 00:00: - [facility] allergy allergy 2021-09 No .35mL Common extract extract 1-03 [facility] 00:00: - [facility] allergy allergy 2021-09 No .3mL Common extract extract 1-03 [facility] 00:00: - [facility] allergy allergy 2021-09 No .35mL Common extract extract 1-03 [facility] 00:00: - [facility] allergy allergy 2021-09 No .3mL Common extract extract 1-03 [facility] 00:00: - [facility] allergy allergy 2021-09 No .35mL Common extract extract 1-03 [facility] 00:00: - [facility] allergy allergy 2021-09 No .3mL Common extract extract 1-03 [facility] 00:00: - [facility] allergy allergy 2021-09 No .35mL Common extract extract 1-03 [facility] 00:00: - [facility] allergy allergy 2021-09 No .3mL Common extract extract 1-03 [facility] 00:00: - [facility] allergy allergy 2021-09 No .35mL Common extract extract 1-03 [facility] 00:00: - [facility] allergy allergy 2021-09 No .3mL Common extract extract 1-03 [facility] 00:00: - [facility] allergy allergy 2021-09 No .35mL Common extract extract 1-03 [facility] 00:00: - [facility] allergy allergy 2021-09 No .3mL Common extract extract 1-03 [facility] 00:00: - [facility] allergy allergy 2021-09 No .3mL Common extract extract 1-03 [facility] 00:00: - [facility] allergy allergy 2021-09 No .35mL Common extract extract 1-03 [facility] 00:00: - [facility] allergy allergy 2021-09 No .3mL Common extract extract 1-03 [facility] 00:00: - [facility] allergy allergy 2021-09 No .35mL Common extract extract 1-03 [facility] 00:00: - [facility] allergy allergy 2021-09 No .3mL Common extract extract 1-03 [facility] 00:00: - [facility] allergy allergy 2021-09 No .35mL Common extract extract 1-03 [facility] 00:00: - [facility] allergy allergy 2021-09 No .3mL Common extract extract 1-03 [facility] 00:00: - [facility] allergy allergy 2021-09 No .35mL Common extract extract 1-03 [facility] 00:00: - [facility] allergy allergy 2021-09 No .3mL Common extract extract 0-27 [facility] 00:00: - [facility] allergy allergy 2021- No .3mL Common extract extract 0-27 [facility] 00:00: - [facility] allergy allergy 2021- No .3mL Common extract extract 0-27 [facility] 00:00: - [facility] allergy allergy 2021- No .3mL Common extract extract 0-27 [facility] 00:00: - [facility] allergy allergy 2021- No .3mL Common extract extract 0-27 [facility] 00:00: - [facility] allergy allergy 2021- No .3mL Common extract extract 0-27 [facility] 00:00: - [facility] allergy allergy 2021- No .3mL Common extract extract 0-27 [facility] 00:00: - [facility] allergy allergy 2021- No .3mL Common extract extract 0-27 [facility] 00:00: - [facility] allergy allergy 2021- No .3mL Common extract extract 0-27 [facility] 00:00: - [facility] allergy allergy 2021- No .3mL Common extract extract 0-27 [facility] 00:00: - [facility] allergy allergy 2021- No .3mL Common extract extract 0-27 [facility] 00:00: - [facility] allergy allergy 2021- No .3mL Common extract extract 0-27 [facility] 00:00: - [facility] allergy allergy 2021- No .3mL Common extract extract 0-27 [facility] 00:00: - [facility] allergy allergy 2021- No .3mL Common extract extract 0-27 [facility] 00:00: - [facility] allergy allergy 2021- No .3mL Common extract extract 0-27 [facility] 00:00: - [facility] allergy allergy 2021- No .3mL Common extract extract 0-27 [facility] 00:00: - [facility] allergy allergy 2021- No .3mL Common extract extract 0-27 [facility] 00:00: - [facility] allergy allergy 2021- No .3mL Common extract extract 0-27 [facility] 00:00: - [facility] allergy allergy 2021- No .3mL Common extract extract 0-27 [facility] 00:00: - [facility] allergy allergy 2021- No .3mL Common extract extract 0-27 [facility] 00:00: - [facility] allergy allergy 2021- No .3mL Common extract extract 0-27 [facility] 00:00: - [facility] allergy allergy 2021- No .3mL Common extract extract 0-27 [facility] 00:00: - [facility] allergy allergy 2021- No .3mL Common extract extract 0-27 [facility] 00:00: - [facility] allergy allergy 2021-09 No .3mL Common extract extract 0-27 [facility] 00:00: - [facility] allergy allergy 2021- No .3mL Common extract extract 0-27 [facility] 00:00: - [facility] allergy allergy 2021-09 No .3mL Common extract extract 0-27 [facility] 00:00: - [facility] allergy allergy 2021-09 No .3mL Common extract extract 0-27 [facility] 00:00: - [facility] allergy allergy 2021-09 No .3mL Common extract extract 0-27 [facility] 00:00: - [facility] allergy allergy 2021-09 No .3mL Common extract extract 0-27 [facility] 00:00: - [facility] allergy allergy 2021-09 No .3mL Common extract extract 0-27 [facility] 00:00: - [facility] allergy allergy 2021-09 No .3mL Common extract extract 0-27 [facility] 00:00: - [facility] allergy allergy 2021-09 No .3mL Common extract extract 0-27 [facility] 00:00: - [facility] allergy allergy 2021-09 No .3mL Common extract extract 0-27 [facility] 00:00: - [facility] allergy allergy 2021-09 No .3mL Common extract extract 0-27 [facility] 00:00: - [facility] allergy allergy 2021-09 No .3mL Common extract extract 0-27 [facility] 00:00: - [facility] allergy allergy 2021-09 No .3mL Common extract extract 0-27 [facility] 00:00: - [facility] Rosuvastati 2021-09 No 1{table QD Rosuvastat n Calcium 5 n Calcium 5 0-20 t} in Calcium MG MG 00:00: 5 MG 00 allergy allergy 2021-09 No .25mL Common extract extract 0-20 [facility] 00:00: - [facility] allergy allergy 2021-09 No .25mL Common extract extract 0-20 [facility] 00:00: - [facility] Rosuvastati 2021-09 No 1{table QD Rosuvastat n Calcium 5 n Calcium 5 0-20 t} in Calcium MG MG 00:00: 5 MG 00 allergy allergy 2021-09 No .25mL Common extract extract 0-20 [facility] 00:00: - [facility] allergy allergy 2021-09 No .25mL Common extract extract 0-20 [facility] 00:00: - [facility] Rosuvastati 2021-09 No 1{table QD Rosuvast[facility] n Calcium 5 n Calcium 5 0-20 t} in Calcium MG MG 00:00: 5 MG 00 allergy allergy 2021-09 No .25mL Common extract extract 0-20 [facility] 00:00: - [facility] allergy allergy 2021-09 No .25mL Common extract extract 0-20 [facility] 00:00: - [facility] Rosuvast[facility] 2021-09 No 1{table QD Rosuvastat n Calcium 5 n Calcium 5 0-20 t} in Calcium MG MG 00:00: 5 MG 00 allergy allergy 2021-09 No .25mL Common extract extract 0-20 [facility] 00:00: - [facility] allergy allergy 2021-09 No .25mL Common extract extract 0-20 [facility] 00:00: - [facility] Rosuvast[facility] 2021-09 No 1{table QD Rosuvastat n Calcium 5 n Calcium 5 0-20 t} in Calcium MG MG 00:00: 5 MG 00 allergy allergy 2021-09 No .25mL Common extract extract 0-20 [facility] 00:00: - [facility] allergy allergy 2021-09 No .25mL Common extract extract 0-20 [facility] 00:00: - [facility] Rosuvast[facility] 2021-09 No 1{table QD Rosuvastat n Calcium 5 n Calcium 5 0-20 t} in Calcium MG MG 00:00: 5 MG 00 allergy allergy 2021-09 No .25mL Common extract extract 0-20 [facility] 00:00: - [facility] allergy allergy 2021-09 No .25mL Common extract extract 0-20 [facility] 00:00: - [facility] Rosuvast[facility] 2021-09 No 1{table QD Rosuvastat n Calcium 5 n Calcium 5 0-20 t} in Calcium MG MG 00:00: 5 MG 00 allergy allergy 2021-09 No .25mL Common extract extract 0-20 [facility] 00:00: - [facility] allergy allergy 2021-09 No .25mL Common extract extract 0-20 [facility] 00:00: - [facility] Rosuvastati 2021-09 No 1{table QD Rosuvastat n Calcium 5 n Calcium 5 0-20 t} in Calcium MG MG 00:00: 5 MG 00 allergy allergy 2021-09 No .25mL Common extract extract 0-20 [facility] 00:00: - [facility] allergy allergy 2021-09 No .25mL Common extract extract 0-20 [facility] 00:00: - [facility] Rosuvast[facility] 2021-09 No 1{table QD Rosuvastat n Calcium 5 n Calcium 5 0-20 t} in Calcium MG MG 00:00: 5 MG 00 allergy allergy 2021-09 No .25mL Common extract extract 0-20 [facility] 00:00: - [facility] allergy allergy 2021-09 No .25mL Common extract extract 0-20 [facility] 00:00: - [facility] Rosuvastati 2021-09 No 1{table QD Rosuvastat n Calcium 5 n Calcium 5 0-20 t} in Calcium MG MG 00:00: 5 MG 00 allergy allergy 2021-09 No .25mL Common extract extract 0-20 [facility] 00:00: - [facility] allergy allergy 2021-09 No .25mL Common extract extract 0-20 [facility] 00:00: - [facility] Rosuvastati 2021-09 No 1{table QD Rosuvastat n Calcium 5 n Calcium 5 0-20 t} in Calcium MG MG 00:00: 5 MG 00 allergy allergy 2021-09 No .25mL Common extract extract 0-20 [facility] 00:00: - [facility] allergy allergy 2021-09 No .25mL Common extract extract 0-20 [facility] 00:00: - [facility] Rosuvast[facility] 2021-09 No 1{table QD Rosuvastat n Calcium 5 n Calcium 5 0-20 t} in Calcium MG MG 00:00: 5 MG 00 allergy allergy 2021-09 No .25mL Common extract extract 0-20 [facility] 00:00: - [facility] allergy allergy 2021-09 No .25mL Common extract extract 0-20 [facility] 00:00: - [facility] Rosuvast[facility] 2021-09 No 1{table QD Rosuvastat n Calcium 5 n Calcium 5 0-20 t} in Calcium MG MG 00:00: 5 MG 00 allergy allergy 2021-09 No .25mL Common extract extract 0-20 [facility] 00:00: - [facility] allergy allergy 2021-09 No .25mL Common extract extract 0-20 [facility] 00:00: - [facility] Rosuvast[facility] 2021-09 No 1{table QD Rosuvastat n Calcium 5 n Calcium 5 0-20 t} in Calcium MG MG 00:00: 5 MG 00 allergy allergy 2021-09 No .25mL Common extract extract 0-20 [facility] 00:00: - [facility] allergy allergy 2021-09 No .25mL Common extract extract 0-20 [facility] 00:00: - [facility] Rosuvast[facility] 2021-09 No 1{table QD Rosuvast[facility] n Calcium 5 n Calcium 5 0-20 t} in Calcium MG MG 00:00: 5 MG 00 allergy allergy 2021-09 No .25mL Common extract extract 0-20 [facility] 00:00: - [facility] allergy allergy 2021-09 No .25mL Common extract extract 0-20 [facility] 00:00: - [facility] Rosuvast[facility] 2021-09 No 1{table QD Rosuvast[facility] n Calcium 5 n Calcium 5 0-20 t} in Calcium MG MG 00:00: 5 MG 00 allergy allergy 2021-09 No .25mL Common extract extract 0-20 [facility] 00:00: - [facility] allergy allergy 2021-09 No .25mL Common extract extract 0-20 [facility] 00:00: - [facility] Ros[facility] 2021-09 No 1{table QD Ros[facility] n Calcium 5 n Calcium 5 0-20 t} in Calcium MG MG 00:00: 5 MG 00 allergy allergy 2021-09 No .25mL Common extract extract 0-20 [facility] 00:00: - [facility] allergy allergy 2021-09 No .25mL Common extract extract 0-20 [facility] 00:00: - [facility] Ros[facility]ast[facility] 2021-09 No 1{table QD Ros[facility] n Calcium 5 n Calcium 5 0-20 t} in Calcium MG MG 00:00: 5 MG 00 allergy allergy 2021-09 No .25mL Common extract extract 0-20 [facility] 00:00: - [facility] allergy allergy 2021-09 No .25mL Common extract extract 0-20 [facility] 00:00: - [facility] Ros[facility] 2021-09 No 1{table QD Rosuvast[facility] n Calcium 5 n Calcium 5 0-20 t} in Calcium MG MG 00:00: 5 MG 00 allergy allergy 2021-09 No .25mL Common extract extract 0-20 [facility] 00:00: - [facility] allergy allergy 2021-09 No .25mL Common extract extract 0-20 [facility] 00:00: - [facility]-09 No 1{table QD Rosuvast[facility] n Calcium 5 n Calcium 5 0-20 t} in Calcium MG MG 00:00: 5 MG 00 allergy allergy 2021-09 No .25mL Common extract extract 0-20 [facility] 00:00: - [facility] allergy allergy 2021-09 No .25mL Common extract extract 0-20 [facility] 00:00: - [facility] allergy allergy 2021-09 No .2mL Common extract extract 0-13 [facility] 00:00: - [facility] allergy allergy 2021-09 No .2mL Common extract extract 0-13 [facility] 00:00: - [facility] allergy allergy 2021-09 No .2mL Common extract extract 0-13 [facility] 00:00: - [facility] allergy allergy 2021-09 No .2mL Common extract extract 0-13 [facility] 00:00: - [facility] allergy allergy 2021- No .2mL Common extract extract 0-13 [facility] 00:00: - [facility] allergy allergy 2021-09 No .2mL Common extract extract 0-13 [facility] 00:00: - [facility] allergy allergy 2021-09 No .2mL Common extract extract 0-13 [facility] 00:00: - [facility] allergy allergy 2021- No .2mL Common extract extract 0-13 [facility] 00:00: - [facility] allergy allergy 2021-09 No .2mL Common extract extract 0-13 [facility] 00:00: - [facility] allergy allergy 2021-09 No .2mL Common extract extract 0-13 [facility] 00:00: - [facility] allergy allergy 2021-09 No .2mL Common extract extract 0-13 [facility] 00:00: - [facility] allergy allergy 2021-09 No .2mL Common extract extract 0-13 [facility] 00:00: - [facility] allergy allergy 2021-09 No .2mL Common extract extract 0-13 [facility] 00:00: - [facility] allergy allergy 2021- No .2mL Common extract extract 0-13 [facility] 00:00: - [facility] allergy allergy 2021- No .2mL Common extract extract 0-13 [facility] 00:00: - [facility] allergy allergy 2021- No .2mL Common extract extract 0-13 [facility] 00:00: - [facility] allergy allergy 2021- No .2mL Common extract extract 0-13 [facility] 00:00: - [facility] allergy allergy 2021- No .2mL Common extract extract 0-13 [facility] 00:00: - [facility] allergy allergy 2021- No .2mL Common extract extract 0-13 [facility] 00:00: - [facility] allergy allergy 2021- No .2mL Common extract extract 0-13 [facility] 00:00: - [facility] allergy allergy 2021- No .2mL Common extract extract 0-13 [facility] 00:00: - [facility] allergy allergy 2021-09 No .2mL Common extract extract 0-13 [facility] 00:00: - [facility] allergy allergy 2021-09 No .2mL Common extract extract 0-13 [facility] 00:00: - [facility] allergy allergy 2021-09 No .2mL Common extract extract 0-13 [facility] 00:00: - [facility] allergy allergy 2021-09 No .2mL Common extract extract 0-13 [facility] 00:00: - [facility] allergy allergy 2021-09 No .2mL Common extract extract 0-13 [facility] 00:00: - [facility] allergy allergy 2021-09 No .2mL Common extract extract 0-13 [facility] 00:00: - [facility] allergy allergy 2021-09 No .2mL Common extract extract 0-13 [facility] 00:00: - [facility] allergy allergy 2021-09 No .2mL Common extract extract 0-13 [facility] 00:00: - [facility] allergy allergy 2021-09 No .2mL Common extract extract 0-13 [facility] 00:00: - [facility] allergy allergy 2021-09 No .2mL Common extract extract 0-13 [facility] 00:00: - [facility] allergy allergy 2021-09 No .2mL Common extract extract 0-13 [facility] 00:00: - [facility] allergy allergy 2021-09 No .2mL Common extract extract 0-13 [facility] 00:00: - [facility] allergy allergy 2021- No .2mL Common extract extract 0-13 [facility] 00:00: - [facility] allergy allergy 2021- No .2mL Common extract extract 0-13 [facility] 00:00: - [facility] allergy allergy 2021- No .2mL Common extract extract 0-13 [facility] 00:00: - [facility] allergy allergy 2021- No .2mL Common extract extract 0-13 [facility] 00:00: - [facility] allergy allergy 2021- No .2mL Common extract extract 0-13 [facility] 00:00: - [facility] allergy allergy 2021-09 No .2mL Common extract extract 0-13 [facility] 00:00: - [facility] allergy allergy 2021- No .2mL Common extract extract 0-13 [facility] 00:00: - [facility] allergy allergy 2021-09 No .2mL Common extract extract 0-13 [facility] 00:00: - [facility] allergy allergy 2021-09 No .2mL Common extract extract 0-13 [facility] 00:00: - [facility] allergy allergy 2021-09 No .15mL Common extract extract 0-06 [facility] 00:00: - [facility] allergy allergy 2021-09 No .15mL Common extract extract 0-06 [facility] 00:00: - [facility] allergy allergy 2021-09 No .15mL Common extract extract 0-06 [facility] 00:00: - [facility] allergy allergy 2021-09 No .15mL Common extract extract 0-06 [facility] 00:00: - [facility] allergy allergy 2021-09 No .15mL Common extract extract 0-06 [facility] 00:00: - [facility] allergy allergy 2021-09 No .15mL Common extract extract 0-06 [facility] 00:00: - [facility] allergy allergy 2021-09 No .15mL Common extract extract 0-06 [facility] 00:00: - [facility] allergy allergy 2021- No .15mL Common extract extract 0-06 [facility] 00:00: - [facility] allergy allergy 2021- No .15mL Common extract extract 0-06 [facility] 00:00: - [facility] allergy allergy 2021- No .15mL Common extract extract 0-06 [facility] 00:00: - [facility] allergy allergy 2021- No .15mL Common extract extract 0-06 [facility] 00:00: - [facility] allergy allergy 2021- No .15mL Common extract extract 0-06 [facility] 00:00: - [facility] allergy allergy 2021- No .15mL Common extract extract 0-06 [facility] 00:00: - [facility] allergy allergy 2021- No .15mL Common extract extract 0-06 [facility] 00:00: - [facility] allergy allergy 2021- No .15mL Common extract extract 0-06 [facility] 00:00: - [facility] allergy allergy 2021- No .15mL Common extract extract 0-06 [facility] 00:00: - [facility] allergy allergy 2021- No .15mL Common extract extract 0-06 [facility] 00:00: - [facility] allergy allergy 2021- No .15mL Common extract extract 0-06 [facility] 00:00: - [facility] allergy allergy 2021- No .15mL Common extract extract 0-06 [facility] 00:00: - [facility] allergy allergy 2021- No .15mL Common extract extract 0-06 [facility] 00:00: - [facility] allergy allergy 2021- No .15mL Common extract extract 0-06 [facility] 00:00: - [facility] allergy allergy 2021- No .15mL Common extract extract 0-06 [facility] 00:00: - [facility] allergy allergy 2021- No .15mL Common extract extract 0-06 [facility] 00:00: - [facility] allergy allergy 2021- No .15mL Common extract extract 0-06 [facility] 00:00: - [facility] allergy allergy 2021- No .15mL Common extract extract 0-06 [facility] 00:00: - [facility] allergy allergy 2021- No .15mL Common extract extract 0-06 [facility] 00:00: - [facility] allergy allergy 2021- No .15mL Common extract extract 0-06 [facility] 00:00: - [facility] allergy allergy 2021- No .15mL Common extract extract 0-06 [facility] 00:00: - [facility] allergy allergy 2021- No .15mL Common extract extract 0-06 [facility] 00:00: - [facility] allergy allergy 2021- No .15mL Common extract extract 0-06 [facility] 00:00: - [facility] allergy allergy 2021- No .15mL Common extract extract 0-06 [facility] 00:00: - [facility] allergy allergy 2021- No .15mL Common extract extract 0-06 [facility] 00:00: - [facility] allergy allergy 2021- No .15mL Common extract extract 0-06 [facility] 00:00: - [facility] allergy allergy 2021- No .15mL Common extract extract 0-06 [facility] 00:00: - [facility] allergy allergy 2021- No .15mL Common extract extract 0-06 [facility] 00:00: - [facility] allergy allergy 2021- No .15mL Common extract extract 0-06 [facility] 00:00: - [facility] allergy allergy 2021- No .15mL Common extract extract 0-06 [facility] 00:00: - [facility] allergy allergy 2021- No .15mL Common extract extract 0-06 [facility] 00:00: - [facility] 00 [facility] allergy allergy 2021- No .15mL Common extract extract 0-06 [facility] 00:00: - [facility] 00 [facility] allergy allergy 2021-09 No .15mL Common extract extract 0-06 [facility] 00:00: - [facility] allergy allergy 2021- No .15mL Common extract extract 0-06 [facility] 00:00: - [facility] 00 [facility] allergy allergy 2021- No .15mL Common extract extract 0-06 [facility] 00:00: - [facility] 00 [facility] allergy allergy 2021- No .15mL Common extract extract 0-06 [facility] 00:00: - [facility] 00 [facility] allergy allergy 2021-1 No .15mL Common extract extract 0-06 [facility] 00:00: - [facility] 00 [facility] allergy allergy 2021-1 No .15mL Common extract extract 0-06 [facility] 00:00: - [facility] 00 [facility] allergy allergy 2021- No .15mL Common extract extract 0-06 [facility] 00:00: - [facility] 00 [facility] allergy allergy 2021-0 No .1mL Common extract extract 9- [facility] 00:00: - [facility] 00 [facility] allergy allergy 2021-0 No .1mL Common extract extract 9-29 [facility] 00:00: - [facility] 00 [facility] allergy allergy 2022-0 No .1mL Common extract extract 06-09 [facility] 00:00: - [facility] allergy allergy 2022-0 No .1mL Common extract extract 06-09 [facility] 00:00: - [facility] 00 [facility] allergy allergy 2022-0 No .1mL Common extract extract 06-09 [facility] 00:00: - [facility] allergy allergy 2-0 No .1mL Common extract extract 06-09 [facility] 00:00: - [facility] 00 [facility] allergy allergy 2022-0 No .1mL Common extract extract 06-09 [facility] 00:00: - [facility] allergy allergy 2-0 No .1mL Common extract extract 06-09 [facility] 00:00: - [facility] allergy allergy 2-0 No .1mL Common extract extract 06-09 [facility] 00:00: - [facility] allergy allergy 2-0 No .1mL Common extract extract 06-09 [facility] 00:00: - [facility] allergy allergy 2022-0 No .1mL Common extract extract 06-09 [facility] 00:00: - [facility] 00 [facility] allergy allergy 2022-0 No .1mL Common extract extract 06-09 [facility] 00:00: - [facility] allergy allergy 2022-0 No .1mL Common extract extract 06-09 [facility] 00:00: - [facility] allergy allergy 2022-0 No .1mL Common extract extract 06-09 [facility] 00:00: - [facility] allergy allergy 2022-0 No .1mL Common extract extract 06-09 [facility] 00:00: - [facility] 00 [facility] allergy allergy 2022-0 No .1mL Common extract extract 06-09 [facility] 00:00: - [facility] allergy allergy 2022-0 No .1mL Common extract extract 06-09 [facility] 00:00: - [facility] 00 [facility] allergy allergy 2022-0 No .1mL Common extract extract 06-09 [facility] 00:00: - [facility] 00 [facility] allergy allergy 2022-0 No .1mL Common extract extract 06-09 [facility] 00:00: - [facility] 00 [facility] allergy allergy 2022-0 No .1mL Common extract extract 06-09 [facility] 00:00: - [facility] allergy allergy 2-0 No .1mL Common extract extract 06-09 [facility] 00:00: - [facility] allergy allergy 2-0 No .1mL Common extract extract 06-09 [facility] 00:00: - [facility] 00 [facility] allergy allergy 2-0 No .1mL Common extract extract 06-09 [facility] 00:00: - [facility] 00 [facility] allergy allergy 2-0 No .1mL Common extract extract 06-09 [facility] 00:00: - [facility] allergy allergy 2-0 No .1mL Common extract extract 06-09 [facility] 00:00: - [facility] allergy allergy 2-0 No .1mL Common extract extract 06-09 [facility] 00:00: - [facility] allergy allergy 2-0 No .1mL Common extract extract 06-09 [facility] 00:00: - [facility] allergy allergy 2-0 No .1mL Common extract extract 06-09 [facility] 00:00: - [facility] allergy allergy 2-0 No .1mL Common extract extract 06-09 [facility] 00:00: - [facility] allergy allergy 2-0 No .1mL Common extract extract 06-09 [facility] 00:00: - [facility] allergy allergy 2-0 No .1mL Common extract extract 06-09 [facility] 00:00: - [facility] allergy allergy 2022-0 No .1mL Common extract extract 06-09 [facility] 00:00: - [facility] 00 [facility] allergy allergy 2022-0 No .1mL Common extract extract 06-09 [facility] 00:00: - [facility] 00 [facility] allergy allergy 2022-0 No .1mL Common extract extract 06-09 [facility] 00:00: - [facility] 00 [facility] allergy allergy 2022-0 No .1mL Common extract extract 06-09 [facility] 00:00: - [facility] 00 [facility] allergy allergy 2022-0 No .1mL Common extract extract 06-09 [facility] 00:00: - [facility] 00 [facility] allergy allergy 2022-0 No .1mL Common extract extract 06-09 [facility] 00:00: - [facility] 00 [facility] allergy allergy 2022-0 No .1mL Common extract extract 06-09 [facility] 00:00: - [facility] 00 [facility] allergy allergy 2-0 No .1mL Common extract extract 06-09 [facility] 00:00: - [facility] 00 [facility] allergy allergy 2022-0 No .1mL Common extract extract 06-09 [facility] 00:00: - [facility] 00 [facility] allergy allergy 2022-0 No .1mL Common extract extract 06-09 [facility] 00:00: - [facility] 00 [facility] allergy allergy 2-0 No .1mL Common extract extract 06-09 [facility] 00:00: - [facility] allergy allergy 2-0 No .1mL Common extract extract 06-09 [facility] 00:00: - [facility] 00 [facility] allergy allergy 2-0 No .1mL Common extract extract 06-09 [facility] 00:00: - [facility] allergy allergy 2-0 No .1mL Common extract extract 06-09 [facility] 00:00: - [facility] 00 [facility] allergy allergy 2-0 No .1mL Common extract extract 06-09 [facility] 00:00: - [facility] allergy allergy 2-0 No .1mL Common extract extract 06-09 [facility] 00:00: - [facility] 00 [facility] allergy allergy 2022-0 No .1mL Common extract extract 06-09 [facility] 00:00: - [facility] allergy allergy 2022-0 No .1mL Common extract extract 06-09 [facility] 00:00: - [facility] 00 [facility] allergy allergy 2022-0 No .1mL Common extract extract 06-09 [facility] 00:00: - [facility] 00 [facility] allergy allergy 2022-0 No .1mL Common extract extract 05-19 [facility] 00:00: - [facility] 00 [facility] allergy allergy 2022-0 No .1mL Common extract extract 05-19 [facility] 00:00: - [facility] 00 [facility] allergy allergy 2022-0 No .1mL Common extract extract 05-19 [facility] 00:00: - [facility] 00 [facility] allergy allergy 2022-0 No .1mL Common extract extract 05-19 [facility] 00:00: - [facility] 00 [facility] allergy allergy 2022-0 No .1mL Common extract extract 05-19 [facility] 00:00: - [facility] 00 [facility] allergy allergy 2022-0 No .1mL Common extract extract 05-19 [facility] 00:00: - [facility] 00 [facility] allergy allergy 2022-0 No .1mL Common extract extract 05-19 [facility] 00:00: - [facility] 00 [facility] allergy allergy 2-0 No .1mL Common extract extract 05-19 [facility] 00:00: - [facility] 00 [facility] allergy allergy 2-0 No .1mL Common extract extract 05-19 [facility] 00:00: - [facility] 00 [facility] allergy allergy 2-0 No .1mL Common extract extract 05-19 [facility] 00:00: - [facility] 00 [facility] allergy allergy 2-0 No .1mL Common extract extract 05-19 [facility] 00:00: - [facility] 00 [facility] allergy allergy 2-0 No .1mL Common extract extract 05-19 [facility] 00:00: - [facility] 00 [facility] allergy allergy 2-0 No .1mL Common extract extract 05-19 [facility] 00:00: - [facility] 00 [facility] allergy allergy 2-0 No .1mL Common extract extract 05-19 [facility] 00:00: - [facility] 00 [facility] allergy allergy 2022-0 No .1mL Common extract extract 05-19 [facility] 00:00: - [facility] 00 [facility] allergy allergy 2022-0 No .1mL Common extract extract 05-19 [facility] 00:00: - [facility] 00 [facility] allergy allergy 2022-0 No .1mL Common extract extract 05-19 [facility] 00:00: - [facility] 00 [facility] allergy allergy 2022-0 No .1mL Common extract extract 05-19 [facility] 00:00: - [facility] 00 [facility] allergy allergy 2022-0 No .1mL Common extract extract 05-19 [facility] 00:00: - [facility] 00 [facility] allergy allergy 2022-0 No .1mL Common extract extract 05-19 [facility] 00:00: - [facility] 00 [facility] allergy allergy 2022-0 No .1mL Common extract extract 05-19 [facility] 00:00: - [facility] 00 [facility] allergy allergy 2022-0 No .1mL Common extract extract 05-19 [facility] 00:00: - [facility] 00 [facility] allergy allergy 2022-0 No .1mL Common extract extract 05-19 [facility] 00:00: - [facility] 00 [facility] allergy allergy 2022-0 No .1mL Common extract extract 05-19 [facility] 00:00: - [facility] 00 [facility] allergy allergy 2-0 No .1mL Common extract extract 05-19 [facility] 00:00: - [facility] 00 [facility] allergy allergy 2022-0 No .1mL Common extract extract 05-19 [facility] 00:00: - [facility] 00 [facility] allergy allergy 2-0 No .1mL Common extract extract 05-19 [facility] 00:00: - [facility] 00 [facility] allergy allergy 2-0 No .1mL Common extract extract 05-19 [facility] 00:00: - [facility] 00 [facility] allergy allergy 2-0 No .1mL Common extract extract 05-19 [facility] 00:00: - [facility] 00 [facility] allergy allergy 2022-0 No .1mL Common extract extract 05-19 [facility] 00:00: - [facility] 00 [facility] allergy allergy 2022-0 No .1mL Common extract extract 05-19 [facility] 00:00: - [facility] 00 [facility] allergy allergy 2022-0 No .1mL Common extract extract 05-19 [facility] 00:00: - [facility] 00 [facility] allergy allergy 2022-0 No .1mL Common extract extract 05-19 [facility] 00:00: - [facility] 00 [facility] allergy allergy 2022-0 No .1mL Common extract extract 05-19 [facility] 00:00: - [facility] 00 [facility] allergy allergy 2022-0 No .1mL Common extract extract 05-19 [facility] 00:00: - [facility] 00 [facility] allergy allergy 2022-0 No .1mL Common extract extract 05-19 [facility] 00:00: - [facility] 00 [facility] allergy allergy 2022-0 No .1mL Common extract extract 05-19 [facility] 00:00: - [facility] 00 [facility] allergy allergy 2022-0 No .1mL Common extract extract 05-19 [facility] 00:00: - [facility] 00 [facility] allergy allergy 2022-0 No .1mL Common extract extract 05-19 [facility] 00:00: - [facility] 00 [facility] allergy allergy 2-0 No .1mL Common extract extract 05-19 [facility] 00:00: - [facility] 00 [facility] allergy allergy 2-0 No .1mL Common extract extract 05-19 [facility] 00:00: - [facility] 00 [facility] allergy allergy 2-0 No .1mL Common extract extract 05-19 [facility] 00:00: - [facility] 00 [facility] allergy allergy 2-0 No .1mL Common extract extract 05-19 [facility] 00:00: - [facility] 00 [facility] allergy allergy 2-0 No .1mL Common extract extract 05-19 [facility] 00:00: - [facility] 00 [facility] allergy allergy 2-0 No .1mL Common extract extract 05-19 [facility] 00:00: - [facility] 00 [facility] allergy allergy 2-0 No .1mL Common extract extract 05-19 [facility] 00:00: - [facility] 00 [facility] allergy allergy 2-0 No .1mL Common extract extract 05-19 [facility] 00:00: - [facility] 00 [facility] allergy allergy 2-0 No .1mL Common extract extract 05-19 [facility] 00:00: - [facility] 00 [facility] allergy allergy 2-0 No .1mL Common extract extract 05-19 [facility] 00:00: - [facility] 00 [facility] allergy allergy 2-0 No .1mL Common extract extract 05-19 [facility] 00:00: - [facility] 00 [facility] allergy allergy 2022-0 No .1mL Common extract extract 05-19 [facility] 00:00: - [facility] 00 [facility] allergy allergy 2022-0 No .1mL Common extract extract 05-19 [facility] 00:00: - [facility] 00 [facility] allergy allergy 2022-0 No .1mL Common extract extract 05-19 [facility] 00:00: - [facility] 00 [facility] allergy allergy 2022-0 No .1mL Common extract extract 05-19 [facility] 00:00: - [facility] 00 [facility] allergy allergy 2022-0 No .1mL Common extract extract 05-19 [facility] 00:00: - [facility] 00 [facility] allergy allergy 2022-0 No .1mL Common extract extract 05-19 [facility] 00:00: - [facility] 00 [facility] allergy allergy 2022-0 No .1mL Common extract extract 05-19 [facility] 00:00: - [facility] 00 [facility] allergy allergy 2-0 No .1mL Common extract extract 05-19 [facility] 00:00: - [facility] 00 [facility] allergy allergy 2022-0 No .1mL Common extract extract 05-19 [facility] 00:00: - [facility] 00 [facility] allergy allergy 2-0 No .1mL Common extract extract 05-19 [facility] 00:00: - [facility] 00 [facility] allergy allergy 2-0 No .05mL Common extract extract 05-12 [facility] 00:00: - [facility] 00 [facility] allergy allergy 2-0 No .05mL Common extract extract 05-12 [facility] 00:00: - [facility] 00 [facility] allergy allergy 2-0 No .05mL Common extract extract 05-12 [facility] 00:00: - [facility] 00 [facility] allergy allergy 2022-0 No .05mL Common extract extract 05-12 [facility] 00:00: - [facility] 00 [facility] allergy allergy 2-0 No .05mL Common extract extract 05-12 [facility] 00:00: - [facility] 00 [facility] allergy allergy 2022-0 No .05mL Common extract extract 05-12 [facility] 00:00: - [facility] 00 [facility] allergy allergy 2022-0 No .05mL Common extract extract 05-12 [facility] 00:00: - [facility] 00 [facility] allergy allergy 2022-0 No .05mL Common extract extract 05-12 [facility] 00:00: - [facility] 00 [facility] allergy allergy 2022-0 No .05mL Common extract extract 05-12 [facility] 00:00: - [facility] 00 [facility] allergy allergy 2022-0 No .05mL Common extract extract 05-12 [facility] 00:00: - [facility] 00 [facility] allergy allergy 2022-0 No .05mL Common extract extract 05-12 [facility] 00:00: - [facility] 00 [facility] allergy allergy 2022-0 No .05mL Common extract extract 05-12 [facility] 00:00: - [facility] 00 [facility] allergy allergy 2022-0 No .05mL Common extract extract 05-12 [facility] 00:00: - [facility] 00 [facility] allergy allergy 2022-0 No .05mL Common extract extract 05-12 [facility] 00:00: - [facility] 00 [facility] allergy allergy 2022-0 No .05mL Common extract extract 05-12 [facility] 00:00: - [facility] 00 [facility] allergy allergy 2022-0 No .05mL Common extract extract 05-12 [facility] 00:00: - [facility] 00 [facility] allergy allergy 2022-0 No .05mL Common extract extract 05-12 [facility] 00:00: - [facility] 00 [facility] allergy allergy 2022-0 No .05mL Common extract extract 05-12 [facility] 00:00: - [facility] 00 [facility] allergy allergy 2022-0 No .05mL Common extract extract 05-12 [facility] 00:00: - [facility] 00 [facility] allergy allergy 2022-0 No .05mL Common extract extract 05-12 [facility] 00:00: - [facility] 00 [facility] allergy allergy 2022-0 No .05mL Common extract extract 05-12 [facility] 00:00: - [facility] 00 [facility] allergy allergy 2022-0 No .05mL Common extract extract 05-12 [facility] 00:00: - [facility] 00 [facility] allergy allergy 2022-0 No .05mL Common extract extract 05-12 [facility] 00:00: - [facility] 00 [facility] allergy allergy 2022-0 No .05mL Common extract extract 05-12 [facility] 00:00: - [facility] 00 [facility] allergy allergy 2022-0 No .05mL Common extract extract 05-12 [facility] 00:00: - [facility] 00 [facility] allergy allergy 2022-0 No .05mL Common extract extract 05-12 [facility] 00:00: - [facility] 00 [facility] allergy allergy 2022-0 No .05mL Common extract extract 05-12 [facility] 00:00: - [facility] 00 [facility] allergy allergy 2022-0 No .05mL Common extract extract 05-12 [facility] 00:00: - [facility] 00 [facility] allergy allergy 2022-0 No .05mL Common extract extract 05-12 [facility] 00:00: - [facility] 00 [facility] allergy allergy 2022-0 No .05mL Common extract extract 05-12 [facility] 00:00: - [facility] 00 [facility] allergy allergy 2022-0 No .05mL Common extract extract 05-12 [facility] 00:00: - [facility] 00 [facility] allergy allergy 2022-0 No .05mL Common extract extract 05-12 [facility] 00:00: - [facility] 00 [facility] allergy allergy 2022-0 No .05mL Common extract extract 05-12 [facility] 00:00: - [facility] 00 [facility] allergy allergy 2022-0 No .05mL Common extract extract 05-12 [facility] 00:00: - [facility] 00 [facility] allergy allergy 2022-0 No .05mL Common extract extract 05-12 [facility] 00:00: - [facility] 00 [facility] allergy allergy 2022-0 No .05mL Common extract extract 05-12 [facility] 00:00: - [facility] 00 [facility] allergy allergy 2022-0 No .05mL Common extract extract 05-12 [facility] 00:00: - [facility] 00 [facility] allergy allergy 2022-0 No .05mL Common extract extract 05-12 [facility] 00:00: - [facility] 00 [facility] allergy allergy 2022-0 No .05mL Common extract extract 05-12 [facility] 00:00: - [facility] 00 [facility] allergy allergy 2022-0 No .05mL Common extract extract 05-12 [facility] 00:00: - [facility] 00 [facility] allergy allergy 2022-0 No .05mL Common extract extract 05-12 [facility] 00:00: - [facility] 00 [facility] allergy allergy 2022-0 No .05mL Common extract extract 05-12 [facility] 00:00: - [facility] 00 [facility] allergy allergy 2022-0 No .05mL Common extract extract 05-12 [facility] 00:00: - [facility] 00 [facility] allergy allergy 2022-0 No .05mL Common extract extract 05-12 [facility] 00:00: - [facility] 00 [facility] allergy allergy 2022-0 No .05mL Common extract extract 05-12 [facility] 00:00: - [facility] 00 [facility] allergy allergy 2022-0 No .05mL Common extract extract 05-12 [facility] 00:00: - [facility] 00 [facility] allergy allergy 2022-0 No .05mL Common extract extract 05-12 [facility] 00:00: - [facility] 00 [facility] allergy allergy 2022-0 No .05mL Common extract extract 05-12 [facility] 00:00: - [facility] 00 [facility] allergy allergy 2-0 No .05mL Common extract extract 05-12 [facility] 00:00: - [facility] 00 [facility] allergy allergy 2-0 No .05mL Common extract extract 05-12 [facility] 00:00: - [facility] 00 [facility] allergy allergy 2-0 No .05mL Common extract extract 05-12 [facility] 00:00: - [facility] 00 [facility] allergy allergy 2-0 No .05mL Common extract extract 05-12 [facility] 00:00: - [facility] 00 [facility] allergy allergy 2-0 No .05mL Common extract extract 05-12 [facility] 00:00: - [facility] allergy allergy 2-0 No .05mL Common extract extract 05-12 [facility] 00:00: - [facility] 00 [facility] allergy allergy 2-0 No .05mL Common extract extract 05-12 [facility] 00:00: - [facility] allergy allergy 2-0 No .05mL Common extract extract 05-12 [facility] 00:00: - [facility] 00 [facility] allergy allergy 2-0 No .05mL Common extract extract 05-12 [facility] 00:00: - [facility] 00 [facility] allergy allergy 2-0 No .05mL Common extract extract 05-12 [facility] 00:00: - [facility] 00 [facility] allergy allergy 2-0 No .05mL Common extract extract 05-12 [facility] 00:00: - [facility] 00 [facility] allergy allergy 2022-0 No .05mL Common extract extract 05-12 [facility] 00:00: - [facility] 00 [facility] allergy allergy 2022-0 No .05mL Common extract extract 05-12 [facility] 00:00: - [facility] 00 [facility] allergy allergy 2022-0 No .05mL Common extract extract 05-12 [facility] 00:00: - [facility] 00 [facility] allergy allergy 2022-0 No .5mL Common extract extract 05-05 [facility] 00:00: - [facility] 00 [facility] allergy allergy 2022-0 No .5mL Common extract extract 05-05 [facility] 00:00: - [facility] 00 [facility] allergy allergy 2022-0 No .5mL Common extract extract 8-25 [facility] 00:00: - [facility] 00 [facility] allergy allergy 2-0 No .5mL Common extract extract 8-25 [facility] 00:00: - [facility] 00 [facility] allergy allergy 2-0 No .5mL Common extract extract 8-25 [facility] 00:00: - [facility] 00 [facility] allergy allergy 2-0 No .5mL Common extract extract 825 [facility] 00:00: - [facility] 00 [facility] allergy allergy 2-0 No .5mL Common extract extract 825 [facility] 00:00: - [facility] 00 [facility] allergy allergy 2-0 No .5mL Common extract extract 825 [facility] 00:00: - [facility] allergy allergy 2-0 No .5mL Common extract extract 825 [facility] 00:00: - [facility] allergy allergy 2-0 No .5mL Common extract extract 825 [facility] 00:00: - [facility] allergy allergy 2-0 No .5mL Common extract extract 825 [facility] 00:00: - [facility] allergy allergy 2-0 No .5mL Common extract extract 825 [facility] 00:00: - [facility] allergy allergy 2-0 No .5mL Common extract extract 825 [facility] 00:00: - [facility] 00 [facility] allergy allergy 2-0 No .5mL Common extract extract 825 [facility] 00:00: - [facility] allergy allergy 2-0 No .5mL Common extract extract 825 [facility] 00:00: - [facility] 00 [facility] allergy allergy 2-0 No .5mL Common extract extract 8-25 [facility] 00:00: - [facility] 00 [facility] allergy allergy 2-0 No .5mL Common extract extract 8-25 [facility] 00:00: - [facility] 00 [facility] allergy allergy 2-0 No .5mL Common extract extract 8-25 [facility] 00:00: - [facility] 00 [facility] allergy allergy 2-0 No .5mL Common extract extract 8-25 [facility] 00:00: - [facility] 00 [facility] allergy allergy 2-0 No .5mL Common extract extract 8-25 [facility] 00:00: - [facility] 00 [facility] allergy allergy 2-0 No .5mL Common extract extract 8-25 [facility] 00:00: - [facility] 00 [facility] allergy allergy 2-0 No .5mL Common extract extract 8-25 [facility] 00:00: - [facility] 00 [facility] allergy allergy 2-0 No .5mL Common extract extract 8-25 [facility] 00:00: - [facility] 00 [facility] allergy allergy 2-0 No .5mL Common extract extract 8-25 [facility] 00:00: - [facility] 00 [facility] allergy allergy 2-0 No .5mL Common extract extract 825 [facility] 00:00: - [facility] 00 [facility] allergy allergy 2-0 No .5mL Common extract extract 825 [facility] 00:00: - [facility] 00 [facility] allergy allergy 2-0 No .5mL Common extract extract 8-25 [facility] 00:00: - [facility] 00 [facility] allergy allergy 2-0 No .5mL Common extract extract 825 [facility] 00:00: - [facility] 00 [facility] allergy allergy 2-0 No .5mL Common extract extract 8-25 [facility] 00:00: - [facility] 00 [facility] allergy allergy 2-0 No .5mL Common extract extract 825 [facility] 00:00: - [facility] 00 [facility] allergy allergy 2-0 No .5mL Common extract extract 8-25 [facility] 00:00: - [facility] 00 [facility] allergy allergy 2-0 No .5mL Common extract extract 8-25 [facility] 00:00: - [facility] 00 [facility] allergy allergy 2-0 No .5mL Common extract extract 8-25 [facility] 00:00: - [facility] 00 [facility] allergy allergy 2-0 No .5mL Common extract extract 8-25 [facility] 00:00: - [facility] 00 [facility] allergy allergy 2-0 No .5mL Common extract extract 8-25 [facility] 00:00: - [facility] 00 [facility] allergy allergy 2-0 No .5mL Common extract extract 8-25 [facility] 00:00: - [facility] 00 [facility] allergy allergy 2-0 No .5mL Common extract extract 8-25 [facility] 00:00: - [facility] 00 [facility] allergy allergy 2022-0 No .5mL Common extract extract 8-25 [facility] 00:00: - [facility] 00 [facility] allergy allergy 2-0 No .5mL Common extract extract 825 [facility] 00:00: - [facility] 00 [facility] allergy allergy 2-0 No .5mL Common extract extract 825 [facility] 00:00: - [facility] 00 [facility] allergy allergy 2-0 No .5mL Common extract extract 825 [facility] 00:00: - [facility] 00 [facility] allergy allergy 2-0 No .5mL Common extract extract 825 [facility] 00:00: - [facility] 00 [facility] allergy allergy 2-0 No .5mL Common extract extract 825 [facility] 00:00: - [facility] allergy allergy 2-0 No .5mL Common extract extract 825 [facility] 00:00: - [facility] allergy allergy 2-0 No .5mL Common extract extract 825 [facility] 00:00: - [facility] allergy allergy 2-0 No .5mL Common extract extract 825 [facility] 00:00: - [facility] 00 [facility] allergy allergy 2-0 No .5mL Common extract extract 825 [facility] 00:00: - [facility] allergy allergy 2-0 No .5mL Common extract extract 825 [facility] 00:00: - [facility] allergy allergy 2-0 No .5mL Common extract extract 8-25 [facility] 00:00: - [facility] 00 [facility] allergy allergy 2022-0 No .5mL Common extract extract 8-25 [facility] 00:00: - [facility] 00 [facility] allergy allergy 2-0 No .5mL Common extract extract 8[facility]25 [facility] 00:00: - [facility] 00 [facility] allergy allergy 2-0 No .5mL Common extract extract 8-25 [facility] 00:00: - [facility] 00 [facility] allergy allergy 2-0 No .5mL Common extract extract 8-25 [facility] 00:00: - [facility] 00 [facility] allergy allergy 2-0 No .5mL Common extract extract 8-25 [facility] 00:00: - [facility] 00 [facility] allergy allergy 2-0 No .5mL Common extract extract 8-25 [facility] 00:00: - [facility] 00 [facility] allergy allergy 2-0 No .5mL Common extract extract 8-25 [facility] 00:00: - [facility] 00 [facility] allergy allergy 2-0 No .5mL Common extract extract 825 [facility] 00:00: - [facility] 00 [facility] allergy allergy 2-0 No .5mL Common extract extract 8-25 [facility] 00:00: - [facility] 00 [facility] allergy allergy 2-0 No .5mL Common extract extract 825 [facility] 00:00: - [facility] 00 [facility] allergy allergy 2-0 No .5mL Common extract extract 825 [facility] 00:00: - CHI [facility] allergy allergy 2-0 No .5mL Common extract extract 825 [facility] 00:00: - CHI [facility] allergy allergy 2-0 No .5mL Common extract extract 825 [facility] 00:00: - CHI [facility] allergy allergy 2-0 No .5mL Common extract extract 825 [facility] 00:00: - CHI [facility] allergy allergy 2-0 No .5mL Common extract extract 825 [facility] 00:00: - [facility]I 00 [facility] allergy allergy 2-0 No .45mL Common extract extract 818 [facility] 00:00: - CHI [facility] allergy allergy 2-0 No .45mL Common extract extract 8-18 [facility] 00:00: - [facility] 00 [facility] allergy allergy 2-0 No .45mL Common extract extract 8-18 [facility] 00:00: - [facility] 00 [facility] allergy allergy 2-0 No .45mL Common extract extract 8-18 [facility] 00:00: - [facility] 00 [facility] allergy allergy 2-0 No .45mL Common extract extract 8-18 [facility] 00:00: - [facility] 00 [facility] allergy allergy 2-0 No .45mL Common extract extract 8-18 [facility] 00:00: - [facility] 00 [facility] allergy allergy 2-0 No .45mL Common extract extract 8-18 [facility] 00:00: - CH[facility] allergy allergy 2-0 No .45mL Common extract extract 8-18 [facility] 00:00: - [facility] 00 [facility] allergy allergy 2-0 No .45mL Common extract extract 8-18 [facility] 00:00: - [facility] 00 [facility] allergy allergy 2-0 No .45mL Common extract extract 818 [facility] 00:00: - [facility] 00 [facility] allergy allergy 2-0 No .45mL Common extract extract 8-18 [facility] 00:00: - [facility] 00 [facility] allergy allergy 2-0 No .45mL Common extract extract 818 [facility] 00:00: - [facility] 00 [facility] allergy allergy 2-0 No .45mL Common extract extract 818 [facility] 00:00: - [facility] 00 [facility] allergy allergy 2-0 No .45mL Common extract extract 818 [facility] 00:00: - CH[facility] allergy allergy 2-0 No .45mL Common extract extract 818 [facility] 00:00: - CHI [facility] allergy allergy 2-0 No .45mL Common extract extract 818 [facility] 00:00: - [facility] 00 [facility] allergy allergy 2-0 No .45mL Common extract extract 818 [facility] 00:00: - [facility] 00 [facility] allergy allergy 2-0 No .45mL Common extract extract 818 [facility] 00:00: - [facility] 00 [facility] allergy allergy 2-0 No .45mL Common extract extract 818 [facility] 00:00: - CHI [facility] allergy allergy 2-0 No .45mL Common extract extract 818 [facility] 00:00: - [facility] 00 [facility] allergy allergy 2-0 No .45mL Common extract extract 8-18 [facility] 00:00: - [facility] 00 [facility] allergy allergy 2-0 No .45mL Common extract extract 8-18 [facility] 00:00: - [facility] 00 [facility] allergy allergy 2-0 No .45mL Common extract extract 8-18 [facility] 00:00: - [facility] 00 [facility] allergy allergy 2-0 No .45mL Common extract extract 8-18 [facility] 00:00: - [facility] 00 [facility] allergy allergy 2-0 No .45mL Common extract extract 8-18 [facility] 00:00: - [facility] 00 [facility] allergy allergy 2-0 No .45mL Common extract extract 8-18 [facility] 00:00: - [facility] 00 [facility] allergy allergy 2-0 No .45mL Common extract extract 8-18 [facility] 00:00: - [facility] 00 [facility] allergy allergy 2-0 No .45mL Common extract extract 8-18 [facility] 00:00: - [facility] 00 [facility] allergy allergy 2-0 No .45mL Common extract extract 8-18 [facility] 00:00: - [facility] 00 [facility] allergy allergy 2-0 No .45mL Common extract extract 818 [facility] 00:00: - [facility] 00 [facility] allergy allergy 2-0 No .45mL Common extract extract 818 [facility] 00:00: - [facility] 00 [facility] allergy allergy 2-0 No .45mL Common extract extract 818 [facility] 00:00: - [facility] 00 [facility] allergy allergy 2-0 No .45mL Common extract extract 818 [facility] 00:00: - [facility] 00 [facility] allergy allergy 2-0 No .4mL Common extract extract 8-11 [facility] 00:00: - [facility] 00 [facility] allergy allergy 2-0 No .4mL Common extract extract 8-11 [facility] 00:00: - [facility] 00 [facility] allergy allergy 2-0 No .4mL Common extract extract 8-11 [facility] 00:00: - [facility] 00 [facility] allergy allergy 2-0 No .4mL Common extract extract 8-11 [facility] 00:00: - [facility] 00 [facility] allergy allergy 2022-0 No .4mL Common extract extract 8-11 [facility] 00:00: - [facility] 00 [facility] allergy allergy 2-0 No .4mL Common extract extract 8-11 [facility] 00:00: - [facility] 00 [facility] allergy allergy 2-0 No .4mL Common extract extract 8-11 [facility] 00:00: - [facility] 00 [facility] allergy allergy 2-0 No .4mL Common extract extract 8-11 [facility] 00:00: - [facility] 00 [facility] allergy allergy 2-0 No .4mL Common extract extract 8-11 [facility] 00:00: - [facility] 00 [facility] allergy allergy 2-0 No .4mL Common extract extract 8-11 [facility] 00:00: - [facility] 00 [facility] allergy allergy 2-0 No .4mL Common extract extract 8-11 [facility] 00:00: - [facility] 00 [facility] allergy allergy 2-0 No .4mL Common extract extract 8-11 [facility] 00:00: - [facility] 00 [facility] allergy allergy 2-0 No .4mL Common extract extract 8-11 [facility] 00:00: - [facility] 00 [facility] allergy allergy 2-0 No .4mL Common extract extract 8-11 [facility] 00:00: - [facility] 00 [facility] allergy allergy 2-0 No .4mL Common extract extract 8-11 [facility] 00:00: - [facility] 00 [facility] allergy allergy 2-0 No .4mL Common extract extract 8-11 [facility] 00:00: - [facility] 00 [facility] allergy allergy 2-0 No .4mL Common extract extract 8-11 [facility] 00:00: - [facility] 00 [facility] allergy allergy 2-0 No .4mL Common extract extract 8-11 [facility] 00:00: - [facility] 00 [facility] allergy allergy 2-0 No .4mL Common extract extract 8-11 [facility] 00:00: - [facility] 00 [facility] allergy allergy 2-0 No .4mL Common extract extract 8-11 [facility] 00:00: - [facility] 00 [facility] allergy allergy 2-0 No .4mL Common extract extract 8-11 [facility] 00:00: - [facility] 00 [facility] allergy allergy 2-0 No .4mL Common extract extract 8-11 [facility] 00:00: - [facility] 00 [facility] allergy allergy 2-0 No .4mL Common extract extract 8-11 [facility] 00:00: - [facility] 00 [facility] allergy allergy 2-0 No .4mL Common extract extract 8-11 [facility] 00:00: - [facility] 00 [facility] allergy allergy 2-0 No .4mL Common extract extract 8-11 [facility] 00:00: - [facility] 00 [facility] allergy allergy 2-0 No .4mL Common extract extract 8-11 [facility] 00:00: - [facility] 00 [facility] allergy allergy 2-0 No .4mL Common extract extract 8-11 [facility] 00:00: - [facility] 00 [facility] allergy allergy 2-0 No .4mL Common extract extract 8-11 [facility] 00:00: - [facility] 00 [facility] allergy allergy 2-0 No .4mL Common extract extract 8-11 [facility] 00:00: - [facility] 00 [facility] allergy allergy 2-0 No .4mL Common extract extract 8-11 [facility] 00:00: - [facility] 00 [facility] allergy allergy 2-0 No .4mL Common extract extract 8-11 [facility] 00:00: - [facility] 00 [facility] allergy allergy 2-0 No .4mL Common extract extract 8-11 [facility] 00:00: - CH[facility] allergy allergy 2-0 No .4mL Common extract extract 8-11 [facility] 00:00: - CH[facility] allergy allergy 2-0 No .4mL Common extract extract 8-11 [facility] 00:00: - CH[facility] allergy allergy 2-0 No .4mL Common extract extract 8-11 [facility] 00:00: - CH[facility] allergy allergy 2-0 No .4mL Common extract extract 8-11 [facility] 00:00: - [facility] 00 [facility] allergy allergy 2-0 No .4mL Common extract extract 8-11 [facility] 00:00: - CH[facility] allergy allergy 2-0 No .4mL Common extract extract 8-11 [facility] 00:00: - [facility] 00 [facility] allergy allergy 2-0 No .4mL Common extract extract 8-11 [facility] 00:00: - [facility] 00 [facility] allergy allergy 2-0 No .4mL Common extract extract 8-11 [facility] 00:00: - [facility] 00 [facility] allergy allergy 2-0 No .4mL Common extract extract 8-11 [facility] 00:00: - [facility] 00 [facility] allergy allergy 2-0 No .4mL Common extract extract 8-11 [facility] 00:00: - [facility] 00 [facility] allergy allergy 2-0 No .4mL Common extract extract 8-11 [facility] 00:00: - [facility] 00 [facility] allergy allergy 2-0 No .4mL Common extract extract 8-11 [facility] 00:00: - [facility] 00 [facility] allergy allergy 2-0 No .4mL Common extract extract 8-11 [facility] 00:00: - [facility] 00 [facility] allergy allergy 2-0 No .4mL Common extract extract 8-11 [facility] 00:00: - [facility] 00 [facility] allergy allergy 2-0 No .4mL Common extract extract 8-11 [facility] 00:00: - [facility] 00 [facility] allergy allergy 2021-0 No .4mL Common extract extract 8-11 [facility] 00:00: - [facility] 00 [facility] allergy allergy 2021-0 No .4mL Common extract extract 8-11 [facility] 00:00: - [facility] 00 [facility] allergy allergy 2021-0 No .4mL Common extract extract 8-11 [facility] 00:00: - CH[facility] allergy allergy 2-0 No .4mL Common extract extract 8-11 [facility] 00:00: - CHI [facility] allergy allergy 2021-0 No .4mL Common extract extract 8-11 [facility] 00:00: - CH[facility] allergy allergy 2-0 No .4mL Common extract extract 8-11 [facility] 00:00: - [facility] 00 [facility] allergy allergy 2-0 No .4mL Common extract extract 8-11 [facility] 00:00: - [facility] 00 [facility] allergy allergy 2-0 No .4mL Common extract extract 8-11 [facility] 00:00: - CH[facility] allergy allergy 2-0 No .4mL Common extract extract 8-11 [facility] 00:00: - [facility] 00 [facility] allergy allergy 2-0 No .4mL Common extract extract 8-11 [facility] 00:00: - [facility] 00 [facility] allergy allergy 2-0 No .4mL Common extract extract 8-11 [facility] 00:00: - [facility] 00 [facility] allergy allergy 2-0 No .4mL Common extract extract 8-11 [facility] 00:00: - [facility] 00 [facility] allergy allergy 2-0 No .4mL Common extract extract 8-11 [facility] 00:00: - [facility] 00 [facility] allergy allergy 2-0 No .4mL Common extract extract 8- [facility] 00:00: - [facility] 00 [facility] allergy allergy 2-0 No .4mL Common extract extract 8 [facility] 00:00: - [facility] 00 [facility] allergy allergy 2-0 No .4mL Common extract extract 8 [facility] 00:00: - [facility] 00 [facility] allergy allergy 2-0 No .4mL Common extract extract 8 [facility] 00:00: - [facility] 00 [facility] allergy allergy 2-0 No .4mL Common extract extract 8 [facility] 00:00: - [facility] 00 [facility] allergy allergy 2-0 No .4mL Common extract extract 04-21 [facility] 00:00: - [facility] 00 [facility] allergy allergy 2-0 No .4mL Common extract extract 04-21 [facility] 00:00: - [facility] 00 [facility] allergy allergy 2-0 No .4mL Common extract extract 04-21 [facility] 00:00: - [facility] 00 [facility] allergy allergy 2-0 No .4mL Common extract extract 04-21 [facility] 00:00: - [facility]I 00 [facility] allergy allergy 2-0 No .4mL Common extract extract 8 [facility] 00:00: - [facility] 00 [facility] allergy allergy 2-0 No .35mL Common extract extract 04-14 [facility] 00:00: - [facility] 00 [facility] allergy allergy 2-0 No .35mL Common extract extract 04-14 [facility] 00:00: - [facility]I 00 [facility] allergy allergy 2-0 No .35mL Common extract extract 8 [facility] 00:00: - [facility] 00 [facility] allergy allergy 2-0 No .35mL Common extract extract 8 [facility] 00:00: - [facility]I 00 [facility] allergy allergy 2-0 No .35mL Common extract extract 8 [facility] 00:00: - [facility]I 00 [facility] allergy allergy 2-0 No .35mL Common extract extract 8 [facility] 00:00: - [facility]I 00 [facility] allergy allergy 2-0 No .35mL Common extract extract 8 [facility] 00:00: - [facility]I 00 [facility] allergy allergy 2-0 No .35mL Common extract extract 8 [facility] 00:00: - [facility] 00 [facility] allergy allergy 2-0 No .35mL Common extract extract 04-14 [facility] 00:00: - [facility]I 00 [facility] allergy allergy 2-0 No .35mL Common extract extract 04-14 [facility] 00:00: - [facility] 00 [facility] allergy allergy 2-0 No .35mL Common extract extract 04-14 [facility] 00:00: - [facility]I 00 [facility] allergy allergy 2-0 No .35mL Common extract extract 04-14 [facility] 00:00: - [facility]I 00 [facility] allergy allergy 2-0 No .35mL Common extract extract 04-14 [facility] 00:00: - [facility]I 00 [facility] allergy allergy 2-0 No .35mL Common extract extract 04-14 [facility] 00:00: - [facility]I 00 [facility] allergy allergy 2-0 No .35mL Common extract extract 04-14 [facility] 00:00: - [facility]I 00 [facility] allergy allergy 2-0 No .35mL Common extract extract 04-14 [facility] 00:00: - [facility] 00 [facility] allergy allergy 2-0 No .35mL Common extract extract 04-14 [facility] 00:00: - [facility]I 00 [facility] allergy allergy 2-0 No .35mL Common extract extract 04-14 [facility] 00:00: - [facility]I 00 [facility] allergy allergy 2-0 No .35mL Common extract extract 04-14 [facility] 00:00: - [facility] 00 [facility] allergy allergy 2-0 No .35mL Common extract extract 04-14 [facility] 00:00: - [facility] 00 [facility] allergy allergy 2-0 No .35mL Common extract extract 04-14 [facility] 00:00: - [facility] 00 [facility] allergy allergy 2-0 No .35mL Common extract extract 04-14 [facility] 00:00: - [facility] 00 [facility] allergy allergy 2-0 No .35mL Common extract extract 04-14 [facility] 00:00: - [facility] 00 [facility] allergy allergy 2-0 No .35mL Common extract extract 04-14 [facility] 00:00: - [facility] 00 [facility] allergy allergy 2022-0 No .35mL Common extract extract 04-14 [facility] 00:00: - [facility]I 00 [facility] allergy allergy 2022-0 No .35mL Common extract extract 04-14 [facility] 00:00: - [facility] 00 [facility] allergy allergy 2-0 No .35mL Common extract extract 04-14 [facility] 00:00: - [facility]I 00 [facility] allergy allergy 2-0 No .35mL Common extract extract 04-14 [facility] 00:00: - [facility]I 00 [facility] allergy allergy 2-0 No .35mL Common extract extract 04-14 [facility] 00:00: - [facility]I 00 [facility] allergy allergy 2-0 No .35mL Common extract extract 04-14 [facility] 00:00: - [facility]I 00 [facility] allergy allergy 2-0 No .35mL Common extract extract 04-14 [facility] 00:00: - [facility]I 00 [facility] allergy allergy 2-0 No .35mL Common extract extract 04-14 [facility] 00:00: - [facility]I 00 [facility] allergy allergy 2-0 No .35mL Common extract extract 04-14 [facility] 00:00: - [facility]I 00 [facility] allergy allergy 2-0 No .35mL Common extract extract 04-14 [facility] 00:00: - [facility]I 00 [facility] allergy allergy 2-0 No .35mL Common extract extract 04-14 [facility] 00:00: - [facility] 00 [facility] allergy allergy 2-0 No .35mL Common extract extract 04-14 [facility] 00:00: - [facility]I 00 [facility] allergy allergy 2-0 No .35mL Common extract extract 04-14 [facility] 00:00: - [facility]I 00 [facility] allergy allergy 2-0 No .35mL Common extract extract 04-14 [facility] 00:00: - [facility]I 00 [facility] allergy allergy 2-0 No .35mL Common extract extract 04-14 [facility] 00:00: - [facility]I 00 [facility] allergy allergy 2-0 No .35mL Common extract extract 04-14 [facility] 00:00: - [facility]I 00 [facility] allergy allergy 2-0 No .35mL Common extract extract 04-14 [facility] 00:00: - [facility]I 00 [facility] allergy allergy 2-0 No .35mL Common extract extract 04-14 [facility] 00:00: - [facility]I 00 [facility] allergy allergy 2-0 No .35mL Common extract extract 04-14 [facility] 00:00: - [facility]I 00 [facility] allergy allergy 2-0 No .35mL Common extract extract 04-14 [facility] 00:00: - [facility]I 00 [facility] allergy allergy 2-0 No .35mL Common extract extract 04-14 [facility] 00:00: - [facility]I 00 [facility] allergy allergy 2-0 No .35mL Common extract extract 04-14 [facility] 00:00: - [facility]I 00 [facility] allergy allergy 2-0 No .35mL Common extract extract 04-14 [facility] 00:00: - [facility]I 00 [facility] allergy allergy 2-0 No .35mL Common extract extract 04-14 [facility] 00:00: - [facility]I 00 [facility] allergy allergy 2-0 No .35mL Common extract extract 04-14 [facility] 00:00: - [facility]I 00 [facility] allergy allergy 2-0 No .35mL Common extract extract 04-14 [facility] 00:00: - [facility] 00 [facility] allergy allergy 2-0 No .35mL Common extract extract 04-14 [facility] 00:00: - [facility]I 00 [facility] allergy allergy 2-0 No .35mL Common extract extract 04-14 [facility] 00:00: - [facility] 00 [facility] allergy allergy 2-0 No .35mL Common extract extract 04-14 [facility] 00:00: - [facility] 00 [facility] allergy allergy 2-0 No .35mL Common extract extract 04-14 [facility] 00:00: - [facility]I 00 [facility] allergy allergy 2-0 No .35mL Common extract extract 04-14 [facility] 00:00: - [facility]I 00 [facility] allergy allergy 2-0 No .35mL Common extract extract 04-14 [facility] 00:00: - [facility]I 00 [facility] allergy allergy 2-0 No .35mL Common extract extract 04-14 [facility] 00:00: - [facility] 00 [facility] allergy allergy 2-0 No .35mL Common extract extract 04-14 [facility] 00:00: - [facility] 00 [facility] allergy allergy 2-0 No .35mL Common extract extract 04-14 [facility] 00:00: - [facility]I 00 [facility] allergy allergy 2022-0 No .35mL Common extract extract 8 [facility] 00:00: - [facility] 00 [facility] allergy allergy 2022-0 No .35mL Common extract extract 8 [facility] 00:00: - [facility] 00 [facility] allergy allergy 2-0 No .35mL Common extract extract 8 [facility] 00:00: - [facility] 00 [facility] allergy allergy 2-0 No .35mL Common extract extract 8 [facility] 00:00: - [facility] 00 [facility] allergy allergy 2-0 No .35mL Common extract extract 8 [facility] 00:00: - [facility] 00 [facility] allergy allergy 2-0 No .35mL Common extract extract 04-14 [facility] 00:00: - [facility] 00 [facility] allergy allergy 2-0 No .35mL Common extract extract 04-14 [facility] 00:00: - [facility] 00 [facility] allergy allergy 2-0 No .35mL Common extract extract 04-14 [facility] 00:00: - [facility] 00 [facility] allergy allergy 2-0 No .35mL Common extract extract 04-14 [facility] 00:00: - [facility] 00 [facility] allergy allergy 2-0 No .35mL Common extract extract 8 [facility] 00:00: - [facility] 00 [facility] allergy allergy 2-0 No .35mL Common extract extract 04-14 [facility] 00:00: - [facility] 00 [facility] allergy allergy 2-0 No .35mL Common extract extract 04-14 [facility] 00:00: - [facility] 00 [facility] allergy allergy 2-0 No .35mL Common extract extract 04-14 [facility] 00:00: - [facility] 00 [facility] allergy allergy 2022-0 No .3mL Common extract extract 04-07 [facility] 00:00: - [facility] 00 [facility] allergy allergy 2022-0 No .3mL Common extract extract 04-07 [facility] 00:00: - [facility] 00 [facility] allergy allergy 2022-0 No .3mL Common extract extract 04-07 [facility] 00:00: - [facility] 00 [facility] allergy allergy 2022-0 No .3mL Common extract extract 04-07 [facility] 00:00: - [facility] 00 [facility] allergy allergy 2022-0 No .3mL Common extract extract 04-07 [facility] 00:00: - [facility] 00 [facility] allergy allergy 2022-0 No .3mL Common extract extract 04-07 [facility] 00:00: - [facility] 00 [facility] allergy allergy 2022-0 No .3mL Common extract extract 04-07 [facility] 00:00: - [facility] 00 [facility] allergy allergy 2022-0 No .3mL Common extract extract 04-07 [facility] 00:00: - [facility] 00 [facility] allergy allergy 2022-0 No .3mL Common extract extract 04-07 [facility] 00:00: - [facility] 00 [facility] allergy allergy 2022-0 No .3mL Common extract extract 04-07 [facility] 00:00: - [facility] 00 [facility] allergy allergy 2022-0 No .3mL Common extract extract 04-07 [facility] 00:00: - [facility] 00 [facility] allergy allergy 2022-0 No .3mL Common extract extract 04-07 [facility] 00:00: - [facility] 00 [facility] allergy allergy 2022-0 No .3mL Common extract extract 04-07 [facility] 00:00: - [facility] 00 [facility] allergy allergy 2022-0 No .3mL Common extract extract 04-07 [facility] 00:00: - [facility] 00 [facility] allergy allergy 2022-0 No .3mL Common extract extract 04-07 [facility] 00:00: - [facility] 00 [facility] allergy allergy 2022-0 No .3mL Common extract extract 04-07 [facility] 00:00: - [facility] 00 [facility] allergy allergy 2022-0 No .3mL Common extract extract 04-07 [facility] 00:00: - [facility] 00 [facility] allergy allergy 2022-0 No .3mL Common extract extract 04-07 [facility] 00:00: - [facility] 00 [facility] allergy allergy 2022-0 No .3mL Common extract extract 04-07 [facility] 00:00: - [facility] 00 [facility] allergy allergy 2022-0 No .3mL Common extract extract 04-07 [facility] 00:00: - [facility] 00 [facility] allergy allergy 2022-0 No .3mL Common extract extract 04-07 [facility] 00:00: - [facility] 00 [facility] allergy allergy 2022-0 No .3mL Common extract extract 04-07 [facility] 00:00: - [facility] 00 [facility] allergy allergy 2022-0 No .3mL Common extract extract 04-07 [facility] 00:00: - [facility] 00 [facility] allergy allergy 2-0 No .3mL Common extract extract 04-07 [facility] 00:00: - [facility] 00 [facility] allergy allergy 2-0 No .3mL Common extract extract 04-07 [facility] 00:00: - [facility] 00 [facility] allergy allergy 2-0 No .3mL Common extract extract 04-07 [facility] 00:00: - [facility] 00 [facility] allergy allergy 2-0 No .3mL Common extract extract 04-07 [facility] 00:00: - [facility] 00 [facility] allergy allergy 2-0 No .3mL Common extract extract 04-07 [facility] 00:00: - [facility] 00 [facility] allergy allergy 2-0 No .3mL Common extract extract 04-07 [facility] 00:00: - [facility] 00 [facility] allergy allergy 2-0 No .3mL Common extract extract 04-07 [facility] 00:00: - [facility] 00 [facility] allergy allergy 2-0 No .3mL Common extract extract 04-07 [facility] 00:00: - [facility] 00 [facility] allergy allergy 2-0 No .3mL Common extract extract 04-07 [facility] 00:00: - [facility] 00 [facility] allergy allergy 2-0 No .3mL Common extract extract 04-07 [facility] 00:00: - [facility] 00 [facility] allergy allergy 2-0 No .3mL Common extract extract 04-07 [facility] 00:00: - [facility] 00 [facility] allergy allergy 2022-0 No .3mL Common extract extract 04-07 [facility] 00:00: - [facility] 00 [facility] allergy allergy 2022-0 No .3mL Common extract extract 04-07 [facility] 00:00: - [facility] 00 [facility] allergy allergy 2022-0 No .3mL Common extract extract 04-07 [facility] 00:00: - [facility] 00 [facility] allergy allergy 2022-0 No .3mL Common extract extract 04-07 [facility] 00:00: - [facility] 00 [facility] allergy allergy 2022-0 No .3mL Common extract extract 04-07 [facility] 00:00: - [facility] 00 [facility] allergy allergy 2022-0 No .3mL Common extract extract 04-07 [facility] 00:00: - [facility] 00 [facility] allergy allergy 2-0 No .3mL Common extract extract 04-07 [facility] 00:00: - [facility] 00 [facility] allergy allergy 2022-0 No .3mL Common extract extract 04-07 [facility] 00:00: - [facility] 00 [facility] allergy allergy 2022-0 No .3mL Common extract extract 04-07 [facility] 00:00: - [facility] 00 [facility] allergy allergy 2022-0 No .3mL Common extract extract 04-07 [facility] 00:00: - [facility] 00 [facility] allergy allergy 2-0 No .3mL Common extract extract 04-07 [facility] 00:00: - [facility] 00 [facility] allergy allergy 2-0 No .3mL Common extract extract 04-07 [facility] 00:00: - [facility] 00 [facility] allergy allergy 2-0 No .3mL Common extract extract 04-07 [facility] 00:00: - [facility] 00 [facility] allergy allergy 2-0 No .3mL Common extract extract 04-07 [facility] 00:00: - [facility] 00 [facility] allergy allergy 2-0 No .3mL Common extract extract 04-07 [facility] 00:00: - [facility] 00 [facility] allergy allergy 2-0 No .3mL Common extract extract 04-07 [facility] 00:00: - [facility] 00 [facility] allergy allergy 2-0 No .3mL Common extract extract 04-07 [facility] 00:00: - [facility] 00 [facility] allergy allergy 2022-0 No .3mL Common extract extract 04-07 [facility] 00:00: - [facility] 00 [facility] allergy allergy 2022-0 No .3mL Common extract extract 04-07 [facility] 00:00: - [facility] 00 [facility] allergy allergy 2022-0 No .3mL Common extract extract 04-07 [facility] 00:00: - [facility] 00 [facility] allergy allergy 2022-0 No .3mL Common extract extract 04-07 [facility] 00:00: - [facility] 00 [facility] allergy allergy 2022-0 No .3mL Common extract extract 04-07 [facility] 00:00: - [facility] 00 [facility] allergy allergy 2022-0 No .3mL Common extract extract 04-07 [facility] 00:00: - [facility] 00 [facility] allergy allergy 2022-0 No .3mL Common extract extract 04-07 [facility] 00:00: - [facility] 00 [facility] allergy allergy 2022-0 No .3mL Common extract extract 04-07 [facility] 00:00: - [facility] 00 [facility] allergy allergy 2022-0 No .3mL Common extract extract 04-07 [facility] 00:00: - [facility] 00 [facility] allergy allergy 2022-0 No .3mL Common extract extract 04-07 [facility] 00:00: - [facility] 00 [facility] allergy allergy 2022-0 No .3mL Common extract extract 04-07 [facility] 00:00: - [facility] 00 [facility] allergy allergy 2022-0 No .3mL Common extract extract 04-07 [facility] 00:00: - [facility] 00 [facility] allergy allergy 2022-0 No .3mL Common extract extract 04-07 [facility] 00:00: - [facility] 00 [facility] allergy allergy 2022-0 No .3mL Common extract extract 04-07 [facility] 00:00: - [facility] 00 [facility] allergy allergy 2022-0 No .3mL Common extract extract 04-07 [facility] 00:00: - [facility] 00 [facility] allergy allergy 2022-0 No .3mL Common extract extract 04-07 [facility] 00:00: - [facility] 00 [facility] allergy allergy 2022-0 No .3mL Common extract extract 04-07 [facility] 00:00: - [facility] 00 [facility] allergy allergy 2022-0 No .3mL Common extract extract 04-07 [facility] 00:00: - [facility] 00 [facility] allergy allergy 2022-0 No .3mL Common extract extract 04-07 [facility] 00:00: - [facility] 00 [facility] allergy allergy 2022-0 No .3mL Common extract extract 04-07 [facility] 00:00: - [facility] 00 [facility] allergy allergy 2022-0 No .3mL Common extract extract 04-07 [facility] 00:00: - [facility] 00 [facility] allergy allergy 2022-0 No .3mL Common extract extract 04-07 [facility] 00:00: - [facility] 00 [facility] allergy allergy 2022-0 No .3mL Common extract extract 04-07 [facility] 00:00: - [facility] 00 [facility] allergy allergy 2022-0 No .25mL Common extract extract 03-31 [facility] 00:00: - [facility] 00 [facility] allergy allergy 2-0 No .25mL Common extract extract 03-31 [facility] 00:00: - [facility] 00 [facility] allergy allergy 2-0 No .25mL Common extract extract 03-31 [facility] 00:00: - [facility] 00 [facility] allergy allergy 2-0 No .25mL Common extract extract 03-31 [facility] 00:00: - [facility] 00 [facility] allergy allergy 2-0 No .25mL Common extract extract 03-31 [facility] 00:00: - [facility] 00 [facility] allergy allergy 2-0 No .25mL Common extract extract 03-31 [facility] 00:00: - [facility] 00 [facility] allergy allergy 2-0 No .25mL Common extract extract 03-31 [facility] 00:00: - [facility] 00 [facility] allergy allergy 2-0 No .25mL Common extract extract 03-31 [facility] 00:00: - [facility] 00 [facility] allergy allergy 2-0 No .25mL Common extract extract 03-31 [facility] 00:00: - [facility] 00 [facility] allergy allergy 2-0 No .25mL Common extract extract 03-31 [facility] 00:00: - [facility] 00 [facility] allergy allergy 2-0 No .25mL Common extract extract 03-31 [facility] 00:00: - [facility] 00 [facility] allergy allergy 2-0 No .25mL Common extract extract 03-31 [facility] 00:00: - [facility] 00 [facility] allergy allergy 2022-0 No .25mL Common extract extract 03-31 [facility] 00:00: - [facility] 00 [facility] allergy allergy 2022-0 No .25mL Common extract extract 03-31 [facility] 00:00: - [facility] 00 [facility] allergy allergy 2022-0 No .25mL Common extract extract 03-31 [facility] 00:00: - [facility] 00 [facility] allergy allergy 2022-0 No .25mL Common extract extract 03-31 [facility] 00:00: - [facility] 00 [facility] allergy allergy 2022-0 No .25mL Common extract extract 03-31 [facility] 00:00: - [facility] 00 [facility] allergy allergy 2022-0 No .25mL Common extract extract 03-31 [facility] 00:00: - [facility] 00 [facility] allergy allergy 2-0 No .25mL Common extract extract 03-31 [facility] 00:00: - [facility] 00 [facility] allergy allergy 2-0 No .25mL Common extract extract 03-31 [facility] 00:00: - [facility] 00 [facility] allergy allergy 2-0 No .25mL Common extract extract 03-31 [facility] 00:00: - [facility] 00 [facility] allergy allergy 2-0 No .25mL Common extract extract 03-31 [facility] 00:00: - [facility] 00 [facility] allergy allergy 2-0 No .25mL Common extract extract 03-31 [facility] 00:00: - [facility] 00 [facility] allergy allergy 2-0 No .25mL Common extract extract 03-31 [facility] 00:00: - [facility] 00 [facility] allergy allergy 2-0 No .25mL Common extract extract 03-31 [facility] 00:00: - [facility] 00 [facility] allergy allergy 2-0 No .25mL Common extract extract 03-31 [facility] 00:00: - [facility] 00 [facility] allergy allergy 2-0 No .25mL Common extract extract 03-31 [facility] 00:00: - [facility] 00 [facility] allergy allergy 2-0 No .25mL Common extract extract 03-31 [facility] 00:00: - [facility] 00 [facility] allergy allergy 2-0 No .25mL Common extract extract 03-31 [facility] 00:00: - [facility] 00 [facility] allergy allergy 2022-0 No .25mL Common extract extract 03-31 [facility] 00:00: - [facility] 00 [facility] allergy allergy 2022-0 No .25mL Common extract extract 03-31 [facility] 00:00: - [facility] 00 [facility] allergy allergy 2-0 No .25mL Common extract extract 03-31 [facility] 00:00: - [facility] 00 [facility] allergy allergy 2022-0 No .25mL Common extract extract 03-31 [facility] 00:00: - [facility] 00 [facility] allergy allergy 2022-0 No .25mL Common extract extract 03-31 [facility] 00:00: - [facility] 00 [facility] allergy allergy 2022-0 No .25mL Common extract extract 03-31 [facility] 00:00: - [facility] 00 [facility] allergy allergy 2-0 No .25mL Common extract extract 03-31 [facility] 00:00: - [facility] 00 [facility] allergy allergy 2-0 No .25mL Common extract extract 03-31 [facility] 00:00: - [facility] 00 [facility] allergy allergy 2-0 No .25mL Common extract extract 03-31 [facility] 00:00: - [facility] 00 [facility] allergy allergy 2-0 No .25mL Common extract extract 03-31 [facility] 00:00: - [facility] 00 [facility] allergy allergy 2-0 No .25mL Common extract extract 03-31 [facility] 00:00: - [facility] 00 [facility] allergy allergy 2-0 No .25mL Common extract extract 03-31 [facility] 00:00: - [facility] 00 [facility] allergy allergy 2-0 No .25mL Common extract extract 03-31 [facility] 00:00: - [facility] 00 [facility] allergy allergy 2-0 No .25mL Common extract extract 03-31 [facility] 00:00: - [facility] 00 [facility] allergy allergy 2-0 No .25mL Common extract extract 03-31 [facility] 00:00: - [facility] 00 [facility] allergy allergy 2-0 No .25mL Common extract extract 03-31 [facility] 00:00: - [facility] 00 [facility] allergy allergy 2-0 No .25mL Common extract extract 03-31 [facility] 00:00: - [facility] 00 [facility] allergy allergy 2-0 No .25mL Common extract extract 03-31 [facility] 00:00: - [facility] 00 [facility] allergy allergy 2-0 No .25mL Common extract extract 03-31 [facility] 00:00: - [facility] 00 [facility] allergy allergy 2-0 No .25mL Common extract extract 03-31 [facility] 00:00: - [facility] 00 [facility] allergy allergy 2-0 No .25mL Common extract extract 03-31 [facility] 00:00: - [facility] 00 [facility] allergy allergy 2-0 No .25mL Common extract extract 03-31 [facility] 00:00: - [facility] 00 [facility] allergy allergy 2022-0 No .25mL Common extract extract 03-31 [facility] 00:00: - [facility] 00 [facility] allergy allergy 2-0 No .25mL Common extract extract 03-31 [facility] 00:00: - [facility] 00 [facility] allergy allergy 2-0 No .25mL Common extract extract 03-31 [facility] 00:00: - [facility] 00 [facility] allergy allergy 2-0 No .25mL Common extract extract 03-31 [facility] 00:00: - [facility] 00 [facility] allergy allergy 2-0 No .25mL Common extract extract 03-31 [facility] 00:00: - [facility] 00 [facility] allergy allergy 2-0 No .25mL Common extract extract 03-31 [facility] 00:00: - [facility] 00 [facility] allergy allergy 2-0 No .25mL Common extract extract 03-31 [facility] 00:00: - [facility] 00 [facility] allergy allergy 2-0 No .25mL Common extract extract 03-31 [facility] 00:00: - [facility] 00 [facility] allergy allergy 2-0 No .25mL Common extract extract 03-31 [facility] 00:00: - [facility] 00 [facility] allergy allergy 2-0 No .25mL Common extract extract 03-31 [facility] 00:00: - [facility] 00 [facility] allergy allergy 2-0 No .25mL Common extract extract 03-31 [facility] 00:00: - [facility] 00 [facility] allergy allergy 2-0 No .25mL Common extract extract 03-31 [facility] 00:00: - [facility] 00 [facility] allergy allergy 2-0 No .25mL Common extract extract 03-31 [facility] 00:00: - [facility] 00 [facility] allergy allergy 2022-0 No .25mL Common extract extract 03-31 [facility] 00:00: - [facility] 00 [facility] allergy allergy 2022-0 No .25mL Common extract extract 03-31 [facility] 00:00: - [facility] 00 [facility] allergy allergy 2022-0 No .25mL Common extract extract 03-31 [facility] 00:00: - [facility] 00 [facility] allergy allergy 2022-0 No .25mL Common extract extract 03-31 [facility] 00:00: - [facility] 00 [facility] allergy allergy 2022-0 No .25mL Common extract extract 03-31 [facility] 00:00: - [facility] 00 [facility] allergy allergy 2-0 No .25mL Common extract extract 03-31 [facility] 00:00: - [facility] 00 [facility] allergy allergy 2-0 No .25mL Common extract extract 03-31 [facility] 00:00: - [facility] 00 [facility] allergy allergy 2-0 No .25mL Common extract extract 03-31 [facility] 00:00: - [facility] 00 [facility] allergy allergy 2-0 No .25mL Common extract extract 03-31 [facility] 00:00: - [facility] 00 [facility] allergy allergy 2-0 No .25mL Common extract extract 03-31 [facility] 00:00: - [facility] 00 [facility] allergy allergy 2021-0 No .25mL Common extract extract 03-31 [facility] 00:00: - [facility] 00 [facility] allergy allergy 2-0 No .25mL Common extract extract 03-31 [facility] 00:00: - [facility] 00 [facility] allergy allergy 2-0 No .2mL Common extract extract 03-24 [facility] 00:00: - [facility] 00 [facility] allergy allergy 2-0 No .2mL Common extract extract 03-24 [facility] 00:00: - [facility] 00 [facility] allergy allergy 2-0 No .2mL Common extract extract 03-24 [facility] 00:00: - [facility] 00 [facility] allergy allergy 2-0 No .2mL Common extract extract 03-24 [facility] 00:00: - [facility] 00 [facility] allergy allergy 2-0 No .2mL Common extract extract 14 [facility] 00:00: - [facility] 00 [facility] allergy allergy 2-0 No .2mL Common extract extract 14 [facility] 00:00: - [facility] 00 [facility] allergy allergy 2-0 No .2mL Common extract extract 14 [facility] 00:00: - [facility] 00 [facility] allergy allergy 2-0 No .2mL Common extract extract 03-24 [facility] 00:00: - [facility] 00 [facility] allergy allergy 2-0 No .2mL Common extract extract 14 [facility] 00:00: - [facility] 00 [facility] allergy allergy 2-0 No .2mL Common extract extract 14 [facility] 00:00: - [facility] 00 [facility] allergy allergy 2-0 No .2mL Common extract extract -14 [facility] 00:00: - [facility] 00 [facility] allergy allergy 2-0 No .2mL Common extract extract 03-24 [facility] 00:00: - [facility] 00 [facility] allergy allergy 2-0 No .2mL Common extract extract 03-24 [facility] 00:00: - [facility] 00 [facility] allergy allergy 2-0 No .2mL Common extract extract 03-24 [facility] 00:00: - [facility] 00 [facility] allergy allergy 2-0 No .2mL Common extract extract 03-24 [facility] 00:00: - [facility] 00 [facility] allergy allergy 2-0 No .2mL Common extract extract 03-24 [facility] 00:00: - [facility] 00 [facility] allergy allergy 2-0 No .2mL Common extract extract 03-24 [facility] 00:00: - [facility] 00 [facility] allergy allergy 2-0 No .2mL Common extract extract 03-24 [facility] 00:00: - [facility] 00 [facility] allergy allergy 2-0 No .2mL Common extract extract 03-24 [facility] 00:00: - [facility] 00 [facility] allergy allergy 2-0 No .2mL Common extract extract 03-24 [facility] 00:00: - [facility] 00 [facility] allergy allergy 2-0 No .2mL Common extract extract 03-24 [facility] 00:00: - [facility] 00 [facility] allergy allergy 2-0 No .2mL Common extract extract 03-24 [facility] 00:00: - [facility] 00 [facility] allergy allergy 2-0 No .2mL Common extract extract - [facility] 00:00: - [facility]I 00 [facility] allergy allergy 2-0 No .2mL Common extract extract 03-24 [facility] 00:00: - [facility] 00 [facility] allergy allergy 2-0 No .2mL Common extract extract 03-24 [facility] 00:00: - [facility] 00 [facility] allergy allergy 2-0 No .2mL Common extract extract 03-24 [facility] 00:00: - [facility] 00 [facility] allergy allergy 2-0 No .2mL Common extract extract 03-24 [facility] 00:00: - [facility] 00 [facility] allergy allergy 2-0 No .2mL Common extract extract 7-14 [facility] 00:00: - [facility] 00 [facility] allergy allergy 2-0 No .2mL Common extract extract 7-14 [facility] 00:00: - [facility] 00 [facility] allergy allergy 2-0 No .2mL Common extract extract 7-14 [facility] 00:00: - [facility] 00 [facility] allergy allergy 2-0 No .2mL Common extract extract 7-14 [facility] 00:00: - [facility] 00 [facility] allergy allergy 2-0 No .2mL Common extract extract -14 [facility] 00:00: - [facility] 00 [facility] allergy allergy 2-0 No .2mL Common extract extract -14 [facility] 00:00: - [facility] 00 [facility] allergy allergy 2-0 No .2mL Common extract extract -14 [facility] 00:00: - [facility] 00 [facility] allergy allergy 2-0 No .2mL Common extract extract -14 [facility] 00:00: - [facility] 00 [facility] allergy allergy 2-0 No .2mL Common extract extract -14 [facility] 00:00: - [facility]I 00 [facility] allergy allergy 2-0 No .2mL Common extract extract -14 [facility] 00:00: - [facility] 00 [facility] allergy allergy 2-0 No .2mL Common extract extract -14 [facility] 00:00: - [facility]I 00 [facility] allergy allergy 2-0 No .2mL Common extract extract 7-14 [facility] 00:00: - [facility]I 00 [facility] allergy allergy 2-0 No .2mL Common extract extract -14 [facility] 00:00: - [facility]I 00 [facility] allergy allergy 2-0 No .2mL Common extract extract -14 [facility] 00:00: - [facility]I 00 [facility] allergy allergy 2-0 No .2mL Common extract extract 7-14 [facility] 00:00: - [facility]I 00 [facility] allergy allergy 2-0 No .2mL Common extract extract 7-14 [facility] 00:00: - [facility]I 00 [facility] allergy allergy 2-0 No .2mL Common extract extract 7-14 [facility] 00:00: - [facility]I 00 [facility] allergy allergy 2-0 No .2mL Common extract extract 7-14 [facility] 00:00: - [facility] 00 [facility] allergy allergy 2-0 No .2mL Common extract extract 7-14 [facility] 00:00: - [facility] 00 [facility] allergy allergy 2-0 No .2mL Common extract extract -14 [facility] 00:00: - [facility]I 00 [facility] allergy allergy 2-0 No .2mL Common extract extract -14 [facility] 00:00: - [facility] 00 [facility] allergy allergy 2-0 No .2mL Common extract extract -14 [facility] 00:00: - [facility] 00 [facility] allergy allergy 2-0 No .2mL Common extract extract -14 [facility] 00:00: - [facility]I 00 [facility] allergy allergy 2021-0 No .2mL Common extract extract 03-24 [facility] 00:00: - [facility] 00 [facility] allergy allergy 2-0 No .2mL Common extract extract - [facility] 00:00: - [facility] 00 [facility] allergy allergy 2-0 No .2mL Common extract extract 03-24 [facility] 00:00: - [facility] 00 [facility] allergy allergy 2-0 No .2mL Common extract extract 03-24 [facility] 00:00: - [facility] 00 [facility] allergy allergy 2-0 No .2mL Common extract extract 03-24 [facility] 00:00: - [facility] 00 [facility] allergy allergy 2-0 No .2mL Common extract extract - [facility] 00:00: - [facility] 00 [facility] allergy allergy 2-0 No .2mL Common extract extract -14 [facility] 00:00: - [facility] 00 [facility] allergy allergy 2-0 No .2mL Common extract extract - [facility] 00:00: - [facility] 00 [facility] allergy allergy 2-0 No .2mL Common extract extract -14 [facility] 00:00: - [facility] 00 [facility] allergy allergy 2-0 No .2mL Common extract extract -14 [facility] 00:00: - [facility] 00 [facility] allergy allergy 2-0 No .2mL Common extract extract -14 [facility] 00:00: - [facility] 00 [facility] allergy allergy 2-0 No .2mL Common extract extract -14 [facility] 00:00: - [facility] 00 [facility] allergy allergy 2-0 No .2mL Common extract extract 03-24 [facility] 00:00: - [facility] 00 [facility] allergy allergy 2-0 No .2mL Common extract extract 03-24 [facility] 00:00: - [facility] 00 [facility] allergy allergy 2-0 No .2mL Common extract extract 03-24 [facility] 00:00: - [facility] 00 [facility] allergy allergy 2-0 No .2mL Common extract extract 03-24 [facility] 00:00: - [facility] 00 [facility] allergy allergy 2-0 No .2mL Common extract extract 03-24 [facility] 00:00: - [facility] 00 [facility] allergy allergy 2021-0 No .2mL Common extract extract 03-24 [facility] 00:00: - [facility] 00 [facility] allergy allergy 2-0 No .2mL Common extract extract 03-24 [facility] 00:00: - [facility] 00 [facility] allergy allergy 2-0 No .2mL Common extract extract 03-24 [facility] 00:00: - [facility] 00 [facility] allergy allergy 2-0 No .2mL Common extract extract 03-24 [facility] 00:00: - [facility] 00 [facility] allergy allergy 2-0 No .2mL Common extract extract 03-24 [facility] 00:00: - [facility] 00 [facility] allergy allergy 2-0 No .2mL Common extract extract 03-24 [facility] 00:00: - [facility] 00 [facility] allergy allergy 2-0 No .2mL Common extract extract 03-24 [facility] 00:00: - [facility] 00 [facility] allergy allergy 2-0 No .2mL Common extract extract 03-24 [facility] 00:00: - [facility] 00 [facility] allergy allergy 2-0 No .2mL Common extract extract 03-24 [facility] 00:00: - [facility] 00 [facility] allergy allergy 2-0 No .2mL Common extract extract 03-24 [facility] 00:00: - [facility] 00 [facility] allergy allergy 2-0 No .2mL Common extract extract 03-24 [facility] 00:00: - [facility] 00 [facility] allergy allergy 2-0 No .15mL Common extract extract 03-17 [facility] 00:00: - [facility] 00 [facility] allergy allergy 2022-0 No .15mL Common extract extract 03-17 [facility] 00:00: - [facility] 00 [facility] allergy allergy 2-0 No .15mL Common extract extract 03-17 [facility] 00:00: - [facility] 00 [facility] allergy allergy 2-0 No .15mL Common extract extract 03-17 [facility] 00:00: - [facility] 00 [facility] allergy allergy 2-0 No .15mL Common extract extract 03-17 [facility] 00:00: - [facility] 00 [facility] allergy allergy 2022-0 No .15mL Common extract extract 03-17 [facility] 00:00: - [facility] 00 [facility] allergy allergy 2-0 No .15mL Common extract extract 03-17 [facility] 00:00: - [facility] 00 [facility] allergy allergy 2-0 No .15mL Common extract extract 03-17 [facility] 00:00: - [facility] 00 [facility] allergy allergy 2-0 No .15mL Common extract extract 03-17 [facility] 00:00: - [facility] 00 [facility] allergy allergy 2-0 No .15mL Common extract extract 03-17 [facility] 00:00: - [facility] 00 [facility] allergy allergy 2-0 No .15mL Common extract extract 03-17 [facility] 00:00: - [facility] 00 [facility] allergy allergy 2-0 No .15mL Common extract extract 03-17 [facility] 00:00: - [facility] 00 [facility] allergy allergy 2-0 No .15mL Common extract extract 03-17 [facility] 00:00: - [facility] 00 [facility] allergy allergy 2022-0 No .15mL Common extract extract 03-17 [facility] 00:00: - [facility] 00 [facility] allergy allergy 2022-0 No .15mL Common extract extract 03-17 [facility] 00:00: - [facility] 00 [facility] allergy allergy 2022-0 No .15mL Common extract extract 03-17 [facility] 00:00: - [facility] 00 [facility] allergy allergy 2022-0 No .15mL Common extract extract 03-17 [facility] 00:00: - [facility] 00 [facility] allergy allergy 2022-0 No .15mL Common extract extract 03-17 [facility] 00:00: - [facility] 00 [facility] allergy allergy 2-0 No .15mL Common extract extract 03-17 [facility] 00:00: - [facility] 00 [facility] allergy allergy 2-0 No .15mL Common extract extract 03-17 [facility] 00:00: - [facility] 00 [facility] allergy allergy 2-0 No .15mL Common extract extract 03-17 [facility] 00:00: - [facility] 00 [facility] allergy allergy 2-0 No .15mL Common extract extract 03-17 [facility] 00:00: - [facility] 00 [facility] allergy allergy 2-0 No .15mL Common extract extract 03-17 [facility] 00:00: - [facility] 00 [facility] allergy allergy 2-0 No .15mL Common extract extract 03-17 [facility] 00:00: - [facility] 00 [facility] allergy allergy 2-0 No .15mL Common extract extract 03-17 [facility] 00:00: - [facility] 00 [facility] allergy allergy 2-0 No .15mL Common extract extract 03-17 [facility] 00:00: - [facility] 00 [facility] allergy allergy 2-0 No .15mL Common extract extract 03-17 [facility] 00:00: - [facility] 00 [facility] allergy allergy 2-0 No .15mL Common extract extract 03-17 [facility] 00:00: - [facility] 00 [facility] allergy allergy 2-0 No .15mL Common extract extract 03-17 [facility] 00:00: - [facility] 00 [facility] allergy allergy 2-0 No .15mL Common extract extract 03-17 [facility] 00:00: - [facility] 00 [facility] allergy allergy 2-0 No .15mL Common extract extract 03-17 [facility] 00:00: - [facility] 00 [facility] allergy allergy 2-0 No .15mL Common extract extract 03-17 [facility] 00:00: - [facility] 00 [facility] allergy allergy 2-0 No .15mL Common extract extract 03-17 [facility] 00:00: - [facility] 00 [facility] allergy allergy 2-0 No .15mL Common extract extract 03-17 [facility] 00:00: - [facility] 00 [facility] allergy allergy 2-0 No .15mL Common extract extract 03-17 [facility] 00:00: - [facility] 00 [facility] allergy allergy 2-0 No .15mL Common extract extract 03-17 [facility] 00:00: - [facility] 00 [facility] allergy allergy 2-0 No .15mL Common extract extract 03-17 [facility] 00:00: - [facility] 00 [facility] allergy allergy 2-0 No .15mL Common extract extract 03-17 [facility] 00:00: - [facility] 00 [facility] allergy allergy 2-0 No .15mL Common extract extract 03-17 [facility] 00:00: - [facility] 00 [facility] allergy allergy 2-0 No .15mL Common extract extract 03-17 [facility] 00:00: - [facility] 00 [facility] allergy allergy 2-0 No .15mL Common extract extract 03-17 [facility] 00:00: - [facility] 00 [facility] allergy allergy 2-0 No .15mL Common extract extract 03-17 [facility] 00:00: - [facility] 00 [facility] allergy allergy 2-0 No .15mL Common extract extract 03-17 [facility] 00:00: - [facility] 00 [facility] allergy allergy 2-0 No .15mL Common extract extract 03-17 [facility] 00:00: - [facility] 00 [facility] allergy allergy 2-0 No .15mL Common extract extract 03-17 [facility] 00:00: - [facility] 00 [facility] allergy allergy 2-0 No .15mL Common extract extract 03-17 [facility] 00:00: - [facility] 00 [facility] allergy allergy 2-0 No .15mL Common extract extract 03-17 [facility] 00:00: - [facility] 00 [facility] allergy allergy 2-0 No .15mL Common extract extract 03-17 [facility] 00:00: - [facility] 00 [facility] allergy allergy 2-0 No .15mL Common extract extract 03-17 [facility] 00:00: - [facility] 00 [facility] allergy allergy 2-0 No .15mL Common extract extract 03-17 [facility] 00:00: - [facility] 00 [facility] allergy allergy 2-0 No .15mL Common extract extract 03-17 [facility] 00:00: - [facility] 00 [facility] allergy allergy 2022-0 No .15mL Common extract extract 03-17 [facility] 00:00: - [facility] 00 [facility] allergy allergy 2-0 No .15mL Common extract extract 03-17 [facility] 00:00: - [facility] 00 [facility] allergy allergy 2-0 No .15mL Common extract extract 03-17 [facility] 00:00: - [facility] 00 [facility] allergy allergy 2-0 No .15mL Common extract extract 03-17 [facility] 00:00: - [facility] 00 [facility] allergy allergy 2-0 No .15mL Common extract extract 03-17 [facility] 00:00: - [facility] 00 [facility] allergy allergy 2-0 No .15mL Common extract extract 03-17 [facility] 00:00: - [facility] 00 [facility] allergy allergy 2-0 No .15mL Common extract extract 03-17 [facility] 00:00: - [facility] 00 [facility] allergy allergy 2-0 No .15mL Common extract extract 03-17 [facility] 00:00: - [facility] 00 [facility] allergy allergy 2-0 No .15mL Common extract extract 03-17 [facility] 00:00: - [facility] 00 [facility] allergy allergy 2-0 No .15mL Common extract extract 03-17 [facility] 00:00: - [facility] 00 [facility] allergy allergy 2-0 No .15mL Common extract extract 03-17 [facility] 00:00: - [facility] 00 [facility] allergy allergy 2-0 No .15mL Common extract extract 03-17 [facility] 00:00: - [facility] 00 [facility] allergy allergy 2-0 No .15mL Common extract extract 03-17 [facility] 00:00: - [facility] 00 [facility] allergy allergy 2022-0 No .15mL Common extract extract 03-17 [facility] 00:00: - [facility] 00 [facility] allergy allergy 2022-0 No .15mL Common extract extract 03-17 [facility] 00:00: - [facility] 00 [facility] allergy allergy 2022-0 No .15mL Common extract extract 03-17 [facility] 00:00: - [facility] 00 [facility] allergy allergy 2022-0 No .15mL Common extract extract 03-17 [facility] 00:00: - [facility] 00 [facility] allergy allergy 2022-0 No .15mL Common extract extract 03-17 [facility] 00:00: - [facility] 00 [facility] allergy allergy 2022-0 No .15mL Common extract extract 03-17 [facility] 00:00: - [facility] 00 [facility] allergy allergy 2-0 No .15mL Common extract extract 03-17 [facility] 00:00: - [facility] 00 [facility] allergy allergy 2022-0 No .15mL Common extract extract 03-17 [facility] 00:00: - [facility] 00 [facility] allergy allergy 2022-0 No .15mL Common extract extract 03-17 [facility] 00:00: - [facility] 00 [facility] allergy allergy 2-0 No .15mL Common extract extract 03-17 [facility] 00:00: - [facility] 00 [facility] allergy allergy 2022-0 No .15mL Common extract extract 03-17 [facility] 00:00: - [facility] 00 [facility] allergy allergy 2022-0 No .15mL Common extract extract 03-17 [facility] 00:00: - [facility] 00 [facility] allergy allergy 2022-0 No .15mL Common extract extract 03-17 [facility] 00:00: - [facility] 00 [facility] allergy allergy 2022-0 No .15mL Common extract extract 03-17 [facility] 00:00: - [facility] 00 [facility] allergy allergy 2022-0 No .15mL Common extract extract 03-17 [facility] 00:00: - [facility] 00 [facility] allergy allergy 2-0 No .15mL Common extract extract 03-17 [facility] 00:00: - [facility] 00 [facility] Montelukast Montelukast 2021-0 No 1{table QD Montelukas Sodium 10 Sodium 10 3-10 t} t Sodium MG MG 00:00: 10 MG 00 Montelukast Montelukast 2021-0 No 1{table QD Montelukas Sodium 10 Sodium 10 3-10 t} t Sodium MG MG 00:00: 10 MG 00 Montelukast Montelukast 2021-0 No 1{table QD Montelukas Sodium 10 Sodium 10 3-10 t} t Sodium MG MG 00:00: 10 MG 00 Montelukast Montelukast 2021-0 No 1{table QD Montelukas Sodium 10 Sodium 10 3-10 t} t Sodium MG MG 00:00: 10 MG 00 Montelukast Montelukast 2021-0 No 1{table QD Montelukas Sodium 10 Sodium 10 3-10 t} t Sodium MG MG 00:00: 10 MG 00 Montelukast Montelukast 2021-0 No 1{table QD Montelukas Sodium 10 Sodium 10 3-10 t} t Sodium MG MG 00:00: 10 MG 00 Montelukast Montelukast 2021-0 No 1{table QD Montelukas Sodium 10 Sodium 10 3-10 t} t Sodium MG MG 00:00: 10 MG 00 Montelukast Montelukast 2021-0 No 1{table QD Montelukas Sodium 10 Sodium 10 3-10 t} t Sodium MG MG 00:00: 10 MG 00 Montelukast Montelukast 2021-0 No 1{table QD Montelukas Sodium 10 Sodium 10 3-10 t} t Sodium MG MG 00:00: 10 MG 00 Montelukast Montelukast 2021-0 No 1{table QD Montelukas Sodium 10 Sodium 10 3-10 t} t Sodium MG MG 00:00: 10 MG 00 Montelukast Montelukast 2021-0 No 1{table QD Montelukas Sodium 10 Sodium 10 3-10 t} t Sodium MG MG 00:00: 10 MG 00 Montelukast Montelukast 2021-0 No 1{table QD Montelukas Sodium 10 Sodium 10 3-10 t} t Sodium MG MG 00:00: 10 MG 00 Montelukast Montelukast 2021-0 No 1{table QD Montelukas Sodium 10 Sodium 10 3-10 t} t Sodium MG MG 00:00: 10 MG 00 Montelukast Montelukast 2021-0 No 1{table QD Montelukas Sodium 10 Sodium 10 3-10 t} t Sodium MG MG 00:00: 10 MG 00 Montelukast Montelukast 2021-0 No 1{table QD Montelukas Sodium 10 Sodium 10 3-10 t} t Sodium MG MG 00:00: 10 MG 00 Montelukast Montelukast 2021-0 No 1{table QD Montelukas Sodium 10 Sodium 10 3-10 t} t Sodium MG MG 00:00: 10 MG 00 Montelukast Montelukast 2021-0 No 1{table QD Montelukas Sodium 10 Sodium 10 3-10 t} t Sodium MG MG 00:00: 10 MG 00 Montelukast Montelukast 2021-0 No 1{table QD Montelukas Sodium 10 Sodium 10 3-10 t} t Sodium MG MG 00:00: 10 MG 00 Montelukast Montelukast 2021-0 No 1{table QD Montelukas Sodium 10 Sodium 10 3-10 t} t Sodium MG MG 00:00: 10 MG 00 Montelukast Montelukast 2021-0 No 1{table QD Montelukas Sodium 10 Sodium 10 3-10 t} t Sodium MG MG 00:00: 10 MG 00 Montelukast Montelukast 2021-0 No 1{table QD Montelukas Sodium 10 Sodium 10 3-10 t} t Sodium MG MG 00:00: 10 MG 00 Montelukast Montelukast 2021-0 No 1{table QD Montelukas Sodium 10 Sodium 10 3-10 t} t Sodium MG MG 00:00: 10 MG 00 Montelukast Montelukast 2021-0 No 1{table QD Montelukas Sodium 10 Sodium 10 3-10 t} t Sodium MG MG 00:00: 10 MG 00 Montelukast Montelukast 2021-0 No 1{table QD Montelukas Sodium 10 Sodium 10 3-10 t} t Sodium MG MG 00:00: 10 MG 00 Montelukast Montelukast 2021-0 No 1{table QD Montelukas Sodium 10 Sodium 10 3-10 t} t Sodium MG MG 00:00: 10 MG 00 Montelukast Montelukast 2021-0 No 1{table QD Montelukas Sodium 10 Sodium 10 3-10 t} t Sodium MG MG 00:00: 10 MG 00 Montelukast Montelukast 2021-0 No 1{table QD Montelukas Sodium 10 Sodium 10 3-10 t} t Sodium MG MG 00:00: 10 MG 00 Montelukast Montelukast 2021-0 No 1{table QD Montelukas Sodium 10 Sodium 10 3-10 t} t Sodium MG MG 00:00: 10 MG 00 Montelukast Montelukast 2021-0 No 1{table QD Montelukas Sodium 10 Sodium 10 3-10 t} t Sodium MG MG 00:00: 10 MG 00 Montelukast Montelukast 2021-0 No 1{table QD Montelukas Sodium 10 Sodium 10 3-10 t} t Sodium MG MG 00:00: 10 MG 00 Montelukast Montelukast 2021-0 No 1{table QD Montelukas Sodium 10 Sodium 10 3-10 t} t Sodium MG MG 00:00: 10 MG 00 Montelukast Montelukast 2021-0 No 1{table QD Montelukas Sodium 10 Sodium 10 3-10 t} t Sodium MG MG 00:00: 10 MG 00 Montelukast Montelukast 2021-0 No 1{table QD Montelukas Sodium 10 Sodium 10 3-10 t} t Sodium MG MG 00:00: 10 MG 00 Montelukast Montelukast 2021-0 No 1{table QD Montelukas Sodium 10 Sodium 10 3-10 t} t Sodium MG MG 00:00: 10 MG 00 Montelukast Montelukast 2021-0 No 1{table QD Montelukas Sodium 10 Sodium 10 3-10 t} t Sodium MG MG 00:00: 10 MG 00 Montelukast Montelukast 2021-0 No 1{table QD Montelukas Sodium 10 Sodium 10 3-10 t} t Sodium MG MG 00:00: 10 MG 00 Montelukast Montelukast 2021-0 No 1{table QD Montelukas Sodium 10 Sodium 10 3-10 t} t Sodium MG MG 00:00: 10 MG 00 Montelukast Montelukast 2021-0 No 1{table QD Montelukas Sodium 10 Sodium 10 3-10 t} t Sodium MG MG 00:00: 10 MG 00 Montelukast Montelukast 2021-0 No 1{table QD Montelukas Sodium 10 Sodium 10 3-10 t} t Sodium MG MG 00:00: 10 MG 00 Montelukast Montelukast 2021-0 No 1{table QD Montelukas Sodium 10 Sodium 10 3-10 t} t Sodium MG MG 00:00: 10 MG 00 Montelukast Montelukast 2021-0 No 1{table QD Montelukas Sodium 10 Sodium 10 3-10 t} t Sodium MG MG 00:00: 10 MG 00 Montelukast Montelukast 2021-0 No 1{table QD Montelukas Sodium 10 Sodium 10 3-10 t} t Sodium MG MG 00:00: 10 MG 00 Montelukast Montelukast 2021-0 No 1{table QD Montelukas Sodium 10 Sodium 10 3-10 t} t Sodium MG MG 00:00: 10 MG 00 Montelukast Montelukast 2021-0 No 1{table QD Montelukas Sodium 10 Sodium 10 3-10 t} t Sodium MG MG 00:00: 10 MG 00 Montelukast Montelukast 2021-0 No 1{table QD Montelukas Sodium 10 Sodium 10 3-10 t} t Sodium MG MG 00:00: 10 MG 00 Montelukast Montelukast 2021-0 No 1{table QD Montelukas Sodium 10 Sodium 10 3-10 t} t Sodium MG MG 00:00: 10 MG 00 Montelukast Montelukast 2021-0 No 1{table QD Montelukas Sodium 10 Sodium 10 3-10 t} t Sodium MG MG 00:00: 10 MG 00 Montelukast Montelukast 2021-0 No 1{table QD Montelukas Sodium 10 Sodium 10 3-10 t} t Sodium MG MG 00:00: 10 MG 00 Montelukast Montelukast 2021-0 No 1{table QD Montelukas Sodium 10 Sodium 10 3-10 t} t Sodium MG MG 00:00: 10 MG 00 Montelukast Montelukast 2021-0 No 1{table QD Montelukas Sodium 10 Sodium 10 3-10 t} t Sodium MG MG 00:00: 10 MG 00 Montelukast Montelukast 2021-0 No 1{table QD Montelukas Sodium 10 Sodium 10 3-10 t} t Sodium MG MG 00:00: 10 MG 00 Montelukast Montelukast 2021-0 No 1{table QD Montelukas Sodium 10 Sodium 10 3-10 t} t Sodium MG MG 00:00: 10 MG 00 Montelukast Montelukast 2021-0 No 1{table QD Montelukas Sodium 10 Sodium 10 3-10 t} t Sodium MG MG 00:00: 10 MG 00 Montelukast Montelukast 2021-0 No 1{table QD Montelukas Sodium 10 Sodium 10 3-10 t} t Sodium MG MG 00:00: 10 MG 00 Montelukast Montelukast 2021-0 No 1{table QD Montelukas Sodium 10 Sodium 10 3-10 t} t Sodium MG MG 00:00: 10 MG 00 Montelukast Montelukast 2021-0 No 1{table QD Montelukas Sodium 10 Sodium 10 3-10 t} t Sodium MG MG 00:00: 10 MG 00 Montelukast Montelukast 2021-0 No 1{table QD Montelukas Sodium 10 Sodium 10 3-10 t} t Sodium MG MG 00:00: 10 MG 00 Montelukast Montelukast 2021-0 No 1{table QD Montelukas Sodium 10 Sodium 10 3-10 t} t Sodium MG MG 00:00: 10 MG 00 Montelukast Montelukast 2021-0 No 1{table QD Montelukas Sodium 10 Sodium 10 3-10 t} t Sodium MG MG 00:00: 10 MG 00 Montelukast Montelukast 2021-0 No 1{table QD Montelukas Sodium 10 Sodium 10 3-10 t} t Sodium MG MG 00:00: 10 MG 00 Losartan Losartan 2020-0 No 1{table QD Losartan Potassium Potassium 8-21 t} Potassium 25 MG 25 MG 00:00: 25 MG 00 Losartan Losartan 2020-0 No 1{table QD Losartan Potassium Potassium 8-21 t} Potassium 25 MG 25 MG 00:00: 25 MG 00 Losartan Losartan 2020-0 No 1{table QD Losartan Potassium Potassium 8-21 t} Potassium 25 MG 25 MG 00:00: 25 MG 00 Losartan Losartan 2020-0 No 1{table QD Losartan Potassium Potassium 8-21 t} Potassium 25 MG 25 MG 00:00: 25 MG 00 Losartan Losartan 2020-0 No 1{table QD Losartan Potassium Potassium 8-21 t} Potassium 25 MG 25 MG 00:00: 25 MG 00 Losartan Losartan 2020-0 No 1{table QD Losartan Potassium Potassium 8-21 t} Potassium 25 MG 25 MG 00:00: 25 MG 00 Kenalog Kenalog 0 No 40mg Common (Triamcinol (Triamcinol 7-26 S pirit one) one) 00:00: - [facility] 00 [facility] Kenalog Kenalog 2021-0 No 40mg Common (Triamcinol (Triamcinol 7-26 S pirit one) one) 00:00: - [facility] 00 [facility] Kenalog Kenalog 2020-0 No 40mg Common (Triamcinol (Triamcinol 7-26 S pirit one) one) 00:00: - [facility] 00 [facility] Kenalog Kenalog 2020-0 No 40mg Common (Triamcinol (Triamcinol 7-26 S pirit one) one) 00:00: - [facility] 00 [facility] Kenalog Kenalog 0 No 40mg Common (Triamcinol (Triamcinol 7-26 S pirit one) one) 00:00: - [facility] 00 [facility] Lyubov Kenalog 0 No 40mg Common (Triamcinol (Triamcinol 7-26 S pirit one) one) 00:00: - [facility] 00 [facility] Lyubov Kenalog 0 No 40mg Common (Triamcinol (Triamcinol 7-26 S pirit one) one) 00:00: - [facility] 00 [facility] Kenjosh Kenalog 2020-0 No 40mg Common (Triamcinol (Triamcinol 7-26 S pirit one) one) 00:00: - [facility] 00 [facility] Kenjosh Kenalog 2020-0 No 40mg Common (Triamcinol (Triamcinol 7-26 S pirit one) one) 00:00: - [facility] 00 [facility] Kenjosh Kenalog 2020-0 No 40mg Common (Triamcinol (Triamcinol 7-26 S pirit one) one) 00:00: - [facility] 00 [facility] Kenjosh Kenalog 2020-0 No 40mg Common (Triamcinol (Triamcinol 7-26 S pirit one) one) 00:00: - [facility] 00 [facility] Kenjosh Kenalog 2020-0 No 40mg Common (Triamcinol (Triamcinol 7-26 S pirit one) one) 00:00: - [facility] 00 [facility] Kenjosh Kenalog 2020-0 No 40mg Common (Triamcinol (Triamcinol 7-26 S pirit one) one) 00:00: - [facility] 00 [facility] Kenalog Kenalog 0 No 40mg Common (Triamcinol (Triamcinol 7-26 S pirit one) one) 00:00: - [facility] 00 [facility] Kenalog Kenalog 0 No 40mg Common (Triamcinol (Triamcinol 7-26 S pirit one) one) 00:00: - [facility] 00 [facility] Kenalog Kenalog 0 No 40mg Common (Triamcinol (Triamcinol 7-26 S pirit one) one) 00:00: - [facility] 00 [facility] Kenalog Kenalog 0 No 40mg Common (Triamcinol (Triamcinol 7-26 S pirit one) one) 00:00: - [facility] 00 [facility] Kenjosh Kenalog 0 No 40mg Common (Triamcinol (Triamcinol 7-26 S pirit one) one) 00:00: - [facility] 00 [facility] Kenalog Kenalog 0 No 40mg Common (Triamcinol (Triamcinol 7-26 S pirit one) one) 00:00: - [facility] 00 [facility] Kenjosh Kenalog 2020-0 No 40mg Common (Triamcinol (Triamcinol 7-26 S pirit one) one) 00:00: - [facility] 00 [facility] Kenalog Kenalog 2020-0 No 40mg Common (Triamcinol (Triamcinol 7-26 S pirit one) one) 00:00: - [facility] 00 [facility] Kenalog Kenalog 2020-0 No 40mg Common (Triamcinol (Triamcinol 7-26 S pirit one) one) 00:00: - [facility] 00 [facility] Kenalog Kenalog 2020-0 No 40mg Common (Triamcinol (Triamcinol 7-26 S pirit one) one) 00:00: - [facility] 00 [facility] Kenalog Kenalog 2020-0 No 40mg Common (Triamcinol (Triamcinol 7-26 S pirit one) one) 00:00: - [facility] 00 [facility] Kenalog Kenalog 2020-0 No 40mg Common (Triamcinol (Triamcinol 7-26 S pirit one) one) 00:00: - [facility] 00 [facility] Kenalog Kenalog 2020-0 No 40mg Common (Triamcinol (Triamcinol 7-26 S pirit one) one) 00:00: - [facility] 00 [facility] Kenalog Kenalog 2020-0 No 40mg Common (Triamcinol (Triamcinol 7-26 S pirit one) one) 00:00: - [facility] 00 [facility] Kenalog Kenalog 2020-0 No 40mg Common (Triamcinol (Triamcinol 7-26 S pirit one) one) 00:00: - [facility] 00 [facility] Kenalog Kenalog 2020-0 No 40mg Common (Triamcinol (Triamcinol 7-26 S pirit one) one) 00:00: - [facility] 00 [facility] Kenalog Kenalog 2020-0 No 40mg Common (Triamcinol (Triamcinol 7-26 S pirit one) one) 00:00: - [facility] 00 [facility] Kenalog Kenalog 2020-0 No 40mg Common (Triamcinol (Triamcinol 7-26 S pirit one) one) 00:00: - [facility] 00 [facility] Kenalog Kenalog 2020-0 No 40mg Common (Triamcinol (Triamcinol 7-26 S pirit one) one) 00:00: - [facility] 00 [facility] Kenalog Kenalog 2020-0 No 40mg Common (Triamcinol (Triamcinol 7-26 S pirit one) one) 00:00: - [facility] 00 [facility] Kenalog Kenalog 2020-0 No 40mg Common (Triamcinol (Triamcinol 7-26 S pirit one) one) 00:00: - [facility] 00 [facility] Kenalog Kenalog 2020-0 No 40mg Common (Triamcinol (Triamcinol 7-26 S pirit one) one) 00:00: - [facility] 00 [facility] Kenalog Kenalog 2020-0 No 40mg Common (Triamcinol (Triamcinol 7-26 S pirit one) one) 00:00: - [facility] 00 [facility] Kenalog Kenalog 2020-0 No 40mg Common (Triamcinol (Triamcinol 7-26 S pirit one) one) 00:00: - [facility] 00 [facility] Kenalog Kenalog 2020-0 No 40mg Common (Triamcinol (Triamcinol 7-26 S pirit one) one) 00:00: - [facility] 00 [facility] Kenalog Kenalog 2020-0 No 40mg Common (Triamcinol (Triamcinol 7-26 S pirit one) one) 00:00: - [facility] 00 [facility] Kenjosh Kenalog 2020-0 No 40mg Common (Triamcinol (Triamcinol 7-26 S pirit one) one) 00:00: - [facility] 00 [facility] Kenjosh Kenalog 2020-0 No 40mg Common (Triamcinol (Triamcinol 7-26 S pirit one) one) 00:00: - [facility] 00 [facility] Kenalog Kenalog 2020-0 No 40mg Common (Triamcinol (Triamcinol 7-26 S pirit one) one) 00:00: - [facility] 00 [facility] Kenjosh Kenalog 2020-0 No 40mg Common (Triamcinol (Triamcinol 7-26 S pirit one) one) 00:00: - [facility] 00 [facility] Kenalog Kenalog 2020-0 No 40mg Common (Triamcinol (Triamcinol 7-26 S pirit one) one) 00:00: - [facility] 00 [facility] Kenalog Kenalog 2020-0 No 40mg Common (Triamcinol (Triamcinol 7-26 S pirit one) one) 00:00: - [facility] 00 [facility] Kenalog Kenalog 2020-0 No 40mg Common (Triamcinol (Triamcinol 7-26 S pirit one) one) 00:00: - [facility] 00 [facility] Kenalog Kenalog 2020-0 No 40mg Common (Triamcinol (Triamcinol 7-26 S pirit one) one) 00:00: - [facility] 00 [facility] Kenalog Kenalog 2020-0 No 40mg Common (Triamcinol (Triamcinol 7-26 S pirit one) one) 00:00: - [facility] 00 [facility] Kenalog Kenalog 2020-0 No 40mg Common (Triamcinol (Triamcinol 7-26 S pirit one) one) 00:00: - [facility] 00 [facility] Kenalog Kenalog 2020-0 No 40mg Common (Triamcinol (Triamcinol 7-26 S pirit one) one) 00:00: - [facility] 00 [facility] Kenalog Kenalog 2020-0 No 40mg Common (Triamcinol (Triamcinol 7-26 S pirit one) one) 00:00: - [facility] 00 [facility] Kenalog Kenalog 2020-0 No 40mg Common (Triamcinol (Triamcinol 7-26 S pirit one) one) 00:00: - [facility] 00 [facility] Kenjosh Kenalog 2020-0 No 40mg Common (Triamcinol (Triamcinol 7-26 S pirit one) one) 00:00: - [facility] 00 [facility] Kenalog Kenalog 2020-0 No 40mg Common (Triamcinol (Triamcinol 7-26 S pirit one) one) 00:00: - [facility] 00 [facility] Kenalog Kenalog 2020-0 No 40mg Common (Triamcinol (Triamcinol 7-26 S pirit one) one) 00:00: - [facility] 00 [facility] Kenalog Kenalog 2020-0 No 40mg Common (Triamcinol (Triamcinol 7-26 S pirit one) one) 00:00: - [facility] 00 [facility] Kenalog Kenalog 2020-0 No 40mg Common (Triamcinol (Triamcinol 7-26 S pirit one) one) 00:00: - [facility] 00 [facility] Kenalog Kenalog 2020-0 No 40mg Common (Triamcinol (Triamcinol 7-26 S pirit one) one) 00:00: - [facility] 00 [facility] Lyubov Mcarthur No 40mg Common (Triamcinol (Triamcinol 7-26 S pirit one) one) 00:00: - [facility] Lyubov Mcarthur No 40mg Common (Triamcinol (Triamcinol 7-26 S pirit one) one) 00:00: - [facility] Lyubov Mcarthur No 40mg Common (Triamcinol (Triamcinol 7-26 S pirit one) one) 00:00: - [facility] 00 [facility] Lyubov Mc[place]ur No 40mg Common (Triamcinol (Triamcinol 7-26 S pirit one) one) 00:00: - [facility] 00 [facility] Flonase Flonase 2018-09 Yes Na Gordon 2 spray in Common 2-11 each [facility] 00:00: nostril - [facility] Lyrica Lyrica 2018-09 Yes Na Gordon 1 capsule C ommon 1-11 [facility] 00:00: - [facility] 00 [facility] ascorbic 2018-09 Yes QD Take by Method [...] 11:36: topical [facility]osp[facility] ointment 47 ointment l esomeprazol [...] st [facility] tablet 00:[facility]: daily[facility] losartan Yes 25mg QD Take 25 mg Met hodi (COZAAR) 25 4-[address] [facility] tablet 00:00: daily. [facility] losartan Yes 25mg QD Take 25 mg Met hodi (COZAAR) 25 4-[address] [facility] tablet 00:00: daily. Hospit a 00 l rosuvastati 2019-0 Yes 5mg Q2D Take 5 mg M ethodi n (CRESTOR) 4-[address] 5 MG tablet 00:00: every Hospi ta other day. l Takes in the evening rosuvastati 2019-0 Yes 5mg Q2D Take 5 mg M ethodi n (CRESTOR) 4-[address] 5 MG tablet 00:00: every Hospi ta other day. l Takes in the evening rosuvastati 2019-0 Yes 5mg Q2D Take 5 mg M [...] For Pain l Famotidine Famotidine Yes Na Gordon 1 tablet Common at bedtime [facility] Meclizine Meclizine Yes Na Gordon 1 tablet Common HCl HCl as needed [facility] losartan losartan Yes Na Gordon one tab C ommon daily [facility] Flagyl Flagyl Yes Na Gordon 1 tablet Comm on [facility] Cipro Cipro Yes Na Gordon 1 tablet Common [facility] Aspirin 81 Aspirin 81 Yes Na Gordon 1 tablet Common [facility] Prilosec Prilosec Yes Na Gordon 1 tablet Common OTC OTC [facility] Metronidazo Metronidazo Yes Na Gordon 1 tablet Common le le [facility] Famotidine Famotidine No 1{table QD Famotidine 20 MG 20 MG t_at_be 20 MG dtime} Aspirin 81 Aspirin 81 No 1{table QD Aspirin 81 81 MG 81 MG t} 81 MG PriLOSEC PriLOSEC No 1{table QD PriLOSEC OTC 20 MG OTC 20 MG t} OTC 20 MG Flonase 50 Flonase 50 No 2{spray QD Flonase 50 MCG/ACT MCG/ACT _in_eac MCG/ACT h_nostr il} Meclizine Meclizine No 1{table QD Meclizine HCl 25 MG HCl 25 MG t_as_ne HCl 25 MG eded} Bactrim DS Bactrim DS No 1{table BID Bactrim DS 800-160 MG 800-160 MG t} 800-160 MG Flagyl 500 Flagyl 500 No 1{table TID Flagyl 500 MG MG t} MG Cipro 500 Cipro 500 No 1{table BID Cipro 500 MG MG t} MG Losartan Losartan No Losartan Potassium Potassium Potassium 25 MG 25 MG 25 MG PriLOSEC PriLOSEC No 1{table QD PriLOSEC OTC 20 MG OTC 20 MG t} OTC 20 MG Meclizine Meclizine No 1{table QD Meclizine HCl 25 MG HCl 25 MG t_as_ne HCl 25 MG eded} Famotidine Famotidine No 1{table QD Famotidine 20 MG 20 MG t_at_be 20 MG dtime} Cipro 500 Cipro 500 No 1{table BID Cipro 500 MG MG t} MG Losartan Losartan No Losartan Potassium Potassium Potassium 25 MG 25 MG 25 MG Bactrim DS Bactrim DS No 1{table BID Bactrim DS 800-160 MG 800-160 MG t} 800-160 MG Bactrim DS Bactrim DS No 1{table BID Bactrim DS 800-160 MG 800-160 MG t} 800-160 MG Aspirin 81 Aspirin 81 No 1{table QD Aspirin 81 81 MG 81 MG t} 81 MG Flagyl 500 Flagyl 500 No 1{table TID Flagyl 500 MG MG t} MG Flonase 50 Flonase 50 No 2{spray QD Flonase 50 MCG/ACT MCG/ACT _in_eac MCG/ACT h_nostr il} Meclizine Meclizine No 1{table QD Meclizine HCl 25 MG HCl 25 MG t_as_ne HCl 25 MG eded} Cipro 500 Cipro 500 No 1{table BID Cipro 500 MG MG t} MG Famotidine Famotidine No 1{table QD Famotidine 20 MG 20 MG t_at_be 20 MG dtime} PriLOSEC PriLOSEC No 1{table QD PriLOSEC OTC 20 MG OTC 20 MG t} OTC 20 MG Meclizine Meclizine No 1{table QD Meclizine HCl 25 MG HCl 25 MG t_as_ne HCl 25 MG eded} Famotidine Famotidine No 1{table QD Famotidine 20 MG 20 MG t_at_be 20 MG dtime} Cipro 500 Cipro 500 No 1{table BID Cipro 500 MG MG t} MG Losartan Losartan No Losartan Potassium Potassium Potassium 25 MG 25 MG 25 MG Bactrim DS Bactrim DS No 1{table BID Bactrim DS 800-160 MG 800-160 MG t} 800-160 MG Aspirin 81 Aspirin 81 No 1{table QD Aspirin 81 81 MG 81 MG t} 81 MG Flagyl 500 Flagyl 500 No 1{table TID Flagyl 500 MG MG t} MG Aspirin 81 Aspirin 81 No 1{table QD Aspirin 81 81 MG 81 MG t} 81 MG Flonase 50 Flonase 50 No 2{spray QD Flonase 50 MCG/ACT MCG/ACT _in_eac MCG/ACT h_nostr il} Losartan Losartan No Losartan Potassium Potassium Potassium 25 MG 25 MG 25 MG Flonase 50 Flonase 50 No 2{spray QD Flonase 50 MCG/ACT MCG/ACT _in_eac MCG/ACT h_nostr il} Flagyl 500 Flagyl 500 No 1{table TID Flagyl 500 MG MG t} MG PriLOSEC PriLOSEC No 1{table QD PriLOSEC OTC 20 MG OTC 20 MG t} OTC 20 MG Losartan Losartan No Losartan Potassium Potassium Potassium 25 MG 25 MG 25 MG Meclizine Meclizine No 1{table QD Meclizine HCl 25 MG HCl 25 MG t_as_ne HCl 25 MG eded} Cipro 500 Cipro 500 No 1{table BID Cipro 500 MG MG t} MG Flonase 50 Flonase 50 No 2{spray QD Flonase 50 MCG/ACT MCG/ACT _in_eac MCG/ACT h_nostr il} Bactrim DS Bactrim DS No 1{table BID Bactrim DS 800-160 MG 800-160 MG t} 800-160 MG Aspirin 81 Aspirin 81 No 1{table QD Aspirin 81 81 MG 81 MG t} 81 MG Flagyl 500 Flagyl 500 No 1{table TID Flagyl 500 MG MG t} MG PriLOSEC PriLOSEC No 1{table QD PriLOSEC OTC 20 MG OTC 20 MG t} OTC 20 MG Famotidine Famotidine No 1{table QD Famotidine 20 MG 20 MG t_at_be 20 MG dtime} Famotidine Famotidine No 1{table QD Famotidine 20 MG 20 MG t_at_be 20 MG dtime} Aspirin 81 Aspirin 81 No 1{table QD Aspirin 81 81 MG 81 MG t} 81 MG PriLOSEC PriLOSEC No 1{table QD PriLOSEC OTC 20 MG OTC 20 MG t} OTC 20 MG Cipro 500 Cipro 500 No 1{table BID Cipro 500 MG MG t} MG Bactrim DS Bactrim DS No 1{table BID Bactrim DS 800-160 MG 800-160 MG t} 800-160 MG Meclizine Meclizine No 1{table QD Meclizine HCl 25 MG HCl 25 MG t_as_ne HCl 25 MG eded} Losartan Losartan No Losartan Potassium Potassium Potassium 25 MG 25 MG 25 MG Flonase 50 Flonase 50 No 2{spray QD Flonase 50 MCG/ACT MCG/ACT _in_eac MCG/ACT h_nostr il} Flagyl 500 Flagyl 500 No 1{table TID Flagyl 500 MG MG t} MG Famotidine Famotidine No 1{table QD Famotidine 20 MG 20 MG t_at_be 20 MG dtime} Cipro 500 Cipro 500 No 1{table BID Cipro 500 MG MG t} MG Bactrim DS Bactrim DS No 1{table BID Bactrim DS 800-160 MG 800-160 MG t} 800-160 MG PriLOSEC PriLOSEC No 1{table QD PriLOSEC OTC 20 MG OTC 20 MG t} OTC 20 MG Flagyl 500 Flagyl 500 No 1{table TID Flagyl 500 MG MG t} MG Flonase 50 Flonase 50 No 2{spray QD Flonase 50 MCG/ACT MCG/ACT _in_eac MCG/ACT h_nostr il} Losartan Losartan No Losartan Potassium Potassium Potassium 25 MG 25 MG 25 MG Aspirin 81 Aspirin 81 No 1{table QD Aspirin 81 81 MG 81 MG t} 81 MG Meclizine Meclizine No 1{table QD Meclizine HCl 25 MG HCl 25 MG t_as_ne HCl 25 MG eded} Cipro 500 Cipro 500 No 1{table BID Cipro 500 MG MG t} MG PriLOSEC PriLOSEC No 1{table QD PriLOSEC OTC 20 MG OTC 20 MG t} OTC 20 MG Bactrim DS Bactrim DS No 1{table BID Bactrim DS 800-160 MG 800-160 MG t} 800-160 MG Losartan Losartan No Losartan Potassium Potassium Potassium 25 MG 25 MG 25 MG Aspirin 81 Aspirin 81 No 1{table QD Aspirin 81 81 MG 81 MG t} 81 MG Famotidine Famotidine No 1{table QD Famotidine 20 MG 20 MG t_at_be 20 MG dtime} Flagyl 500 Flagyl 500 No 1{table TID Flagyl 500 MG MG t} MG Flonase 50 Flonase 50 No 2{spray QD Flonase 50 MCG/ACT MCG/ACT _in_eac MCG/ACT h_nostr il} Meclizine Meclizine No 1{table QD Meclizine HCl 25 MG HCl 25 MG t_as_ne HCl 25 MG eded} Cipro 500 Cipro 500 No 1{table BID Cipro 500 MG MG t} MG PriLOSEC PriLOSEC No 1{table QD PriLOSEC OTC 20 MG OTC 20 MG t} OTC 20 MG Bactrim DS Bactrim DS No 1{table BID Bactrim DS 800-160 MG 800-160 MG t} 800-160 MG Losartan Losartan No Losartan Potassium Potassium Potassium 25 MG 25 MG 25 MG Aspirin 81 Aspirin 81 No 1{table QD Aspirin 81 81 MG 81 MG t} 81 MG Famotidine Famotidine No 1{table QD Famotidine 20 MG 20 MG t_at_be 20 MG dtime} Flagyl 500 Flagyl 500 No 1{table TID Flagyl 500 MG MG t} MG Flonase 50 Flonase 50 No 2{spray QD Flonase 50 MCG/ACT MCG/ACT _in_eac MCG/ACT h_nostr il} Meclizine Meclizine No 1{table QD Meclizine HCl 25 MG HCl 25 MG t_as_ne HCl 25 MG eded} Bactrim DS Bactrim DS No 1{table BID Bactrim DS 800-160 MG 800-160 MG t} 800-160 MG Aspirin 81 Aspirin 81 No 1{table QD Aspirin 81 81 MG 81 MG t} 81 MG Flonase 50 Flonase 50 No 2{spray QD Flonase 50 MCG/ACT MCG/ACT _in_eac MCG/ACT h_nostr il} Famotidine Famotidine No 1{table QD Famotidine 20 MG 20 MG t_at_be 20 MG dtime} Flagyl 500 Flagyl 500 No 1{table TID Flagyl 500 MG MG t} MG Cipro 500 Cipro 500 No 1{table BID Cipro 500 MG MG t} MG Losartan Losartan No Losartan Potassium Potassium Potassium 25 MG 25 MG 25 MG PriLOSEC PriLOSEC No 1{table QD PriLOSEC OTC 20 MG OTC 20 MG t} OTC 20 MG Meclizine Meclizine No 1{table QD Meclizine HCl 25 MG HCl 25 MG t_as_ne HCl 25 MG eded} Bactrim DS Bactrim DS No 1{table BID Bactrim DS 800-160 MG 800-160 MG t} 800-160 MG Aspirin 81 Aspirin 81 No 1{table QD Aspirin 81 81 MG 81 MG t} 81 MG Flonase 50 Flonase 50 No 2{spray QD Flonase 50 MCG/ACT MCG/ACT _in_eac MCG/ACT h_nostr il} Famotidine Famotidine No 1{table QD Famotidine 20 MG 20 MG t_at_be 20 MG dtime} Flagyl 500 Flagyl 500 No 1{table TID Flagyl 500 MG MG t} MG Cipro 500 Cipro 500 No 1{table BID Cipro 500 MG MG t} MG Losartan Losartan No Losartan Potassium Potassium Potassium 25 MG 25 MG 25 MG PriLOSEC PriLOSEC No 1{table QD PriLOSEC OTC 20 MG OTC 20 MG t} OTC 20 MG Meclizine Meclizine No 1{table QD Meclizine HCl 25 MG HCl 25 MG t_as_ne HCl 25 MG eded} Losartan Losartan No Losartan Potassium Potassium Potassium 25 MG 25 MG 25 MG PriLOSEC PriLOSEC No 1{table QD PriLOSEC OTC 20 MG OTC 20 MG t} OTC 20 MG Aspirin 81 Aspirin 81 No 1{table QD Aspirin 81 81 MG 81 MG t} 81 MG Flagyl 500 Flagyl 500 No 1{table TID Flagyl 500 MG MG t} MG Flonase 50 Flonase 50 No 2{spray QD Flonase 50 MCG/ACT MCG/ACT _in_eac MCG/ACT h_nostr il} Bactrim DS Bactrim DS No 1{table BID Bactrim DS 800-160 MG 800-160 MG t} 800-160 MG Meclizine Meclizine No 1{table QD Meclizine HCl 25 MG HCl 25 MG t_as_ne HCl 25 MG eded} Famotidine Famotidine No 1{table QD Famotidine 20 MG 20 MG t_at_be 20 MG dtime} Cipro 500 Cipro 500 No 1{table BID Cipro 500 MG MG t} MG Aspirin 81 Aspirin 81 No 1{table QD Aspirin 81 81 MG 81 MG t} 81 MG Famotidine Famotidine No 1{table QD Famotidine 20 MG 20 MG t_at_be 20 MG dtime} Flagyl 500 Flagyl 500 No 1{table TID Flagyl 500 MG MG t} MG Flonase 50 Flonase 50 No 2{spray QD Flonase 50 MCG/ACT MCG/ACT _in_eac MCG/ACT h_nostr il} Meclizine Meclizine No 1{table QD Meclizine HCl 25 MG HCl 25 MG t_as_ne HCl 25 MG eded} Cipro 500 Cipro 500 No 1{table BID Cipro 500 MG MG t} MG PriLOSEC PriLOSEC No 1{table QD PriLOSEC OTC 20 MG OTC 20 MG t} OTC 20 MG Bactrim DS Bactrim DS No 1{table BID Bactrim DS 800-160 MG 800-160 MG t} 800-160 MG Losartan Losartan No Losartan Potassium Potassium Potassium 25 MG 25 MG 25 MG Bactrim DS Bactrim DS No 1{table BID Bactrim DS 800-160 MG 800-160 MG t} 800-160 MG Meclizine Meclizine No 1{table QD Meclizine HCl 25 MG HCl 25 MG t_as_ne HCl 25 MG eded} Cipro 500 Cipro 500 No 1{table BID Cipro 500 MG MG t} MG Famotidine Famotidine No 1{table QD Famotidine 20 MG 20 MG t_at_be 20 MG dtime} Aspirin 81 Aspirin 81 No 1{table QD Aspirin 81 81 MG 81 MG t} 81 MG Aspirin 81 Aspirin 81 No 1{table QD Aspirin 81 81 MG 81 MG t} 81 MG Famotidine Famotidine No 1{table QD Famotidine 20 MG 20 MG t_at_be 20 MG dtime} Flagyl 500 Flagyl 500 No 1{table TID Flagyl 500 MG MG t} MG Flonase 50 Flonase 50 No 2{spray QD Flonase 50 MCG/ACT MCG/ACT _in_eac MCG/ACT h_nostr il} Meclizine Meclizine No 1{table QD Meclizine HCl 25 MG HCl 25 MG t_as_ne HCl 25 MG eded} Losartan Losartan No Losartan Potassium Potassium Potassium 25 MG 25 MG 25 MG Cipro 500 Cipro 500 No 1{table BID Cipro 500 MG MG t} MG PriLOSEC PriLOSEC No 1{table QD PriLOSEC OTC 20 MG OTC 20 MG t} OTC 20 MG Bactrim DS Bactrim DS No 1{table BID Bactrim DS 800-160 MG 800-160 MG t} 800-160 MG Losartan Losartan No Losartan Potassium Potassium Potassium 25 MG 25 MG 25 MG Flonase 50 Flonase 50 No 2{spray QD Flonase 50 MCG/ACT MCG/ACT _in_eac MCG/ACT h_nostr il} Flagyl 500 Flagyl 500 No 1{table TID Flagyl 500 MG MG t} MG PriLOSEC PriLOSEC No 1{table QD PriLOSEC OTC 20 MG OTC 20 MG t} OTC 20 MG Aspirin 81 Aspirin 81 No 1{table QD Aspirin 81 81 MG 81 MG t} 81 MG Famotidine Famotidine No 1{table QD Famotidine 20 MG 20 MG t_at_be 20 MG dtime} Flagyl 500 Flagyl 500 No 1{table TID Flagyl 500 MG MG t} MG Flonase 50 Flonase 50 No 2{spray QD Flonase 50 MCG/ACT MCG/ACT _in_eac MCG/ACT h_nostr il} Meclizine Meclizine No 1{table QD Meclizine HCl 25 MG HCl 25 MG t_as_ne HCl 25 MG eded} Cipro 500 Cipro 500 No 1{table BID Cipro 500 MG MG t} MG PriLOSEC PriLOSEC No 1{table QD PriLOSEC OTC 20 MG OTC 20 MG t} OTC 20 MG Bactrim DS Bactrim DS No 1{table BID Bactrim DS 800-160 MG 800-160 MG t} 800-160 MG Losartan Losartan No Losartan Potassium Potassium Potassium 25 MG 25 MG 25 MG Aspirin 81 Aspirin 81 No 1{table QD Aspirin 81 81 MG 81 MG t} 81 MG Famotidine Famotidine No 1{table QD Famotidine 20 MG 20 MG t_at_be 20 MG dtime} Flagyl 500 Flagyl 500 No 1{table TID Flagyl 500 MG MG t} MG Flonase 50 Flonase 50 No 2{spray QD Flonase 50 MCG/ACT MCG/ACT _in_eac MCG/ACT h_nostr il} Meclizine Meclizine No 1{table QD Meclizine HCl 25 MG HCl 25 MG t_as_ne HCl 25 MG eded} Cipro 500 Cipro 500 No 1{table BID Cipro 500 MG MG t} MG PriLOSEC PriLOSEC No 1{table QD PriLOSEC OTC 20 MG OTC 20 MG t} OTC 20 MG Bactrim DS Bactrim DS No 1{table BID Bactrim DS 800-160 MG 800-160 MG t} 800-160 MG Losartan Losartan No Losartan Potassium Potassium Potassium 25 MG 25 MG 25 MG Meclizine Meclizine No 1{table QD Meclizine HCl 25 MG HCl 25 MG t_as_ne HCl 25 MG eded} Aspirin 81 Aspirin 81 No 1{table QD Aspirin 81 81 MG 81 MG t} 81 MG Flonase 50 Flonase 50 No 2{spray QD Flonase 50 MCG/ACT MCG/ACT _in_eac MCG/ACT h_nostr il} Losartan Losartan No Losartan Potassium Potassium Potassium 25 MG 25 MG 25 MG Cipro 500 Cipro 500 No 1{table BID Cipro 500 MG MG t} MG Bactrim DS Bactrim DS No 1{table BID Bactrim DS 800-160 MG 800-160 MG t} 800-160 MG Flagyl 500 Flagyl 500 No 1{table TID Flagyl 500 MG MG t} MG PriLOSEC PriLOSEC No 1{table QD PriLOSEC OTC 20 MG OTC 20 MG t} OTC 20 MG Famotidine Famotidine No 1{table QD Famotidine 20 MG 20 MG t_at_be 20 MG dtime} Bactrim DS Bactrim DS No 1{table BID Bactrim DS 800-160 MG 800-160 MG t} 800-160 MG Aspirin 81 Aspirin 81 No 1{table QD Aspirin 81 81 MG 81 MG t} 81 MG PriLOSEC PriLOSEC No 1{table QD PriLOSEC OTC 20 MG OTC 20 MG t} OTC 20 MG Cipro 500 Cipro 500 No 1{table BID Cipro 500 MG MG t} MG Famotidine Famotidine No 1{table QD Famotidine 20 MG 20 MG t_at_be 20 MG dtime} Losartan Losartan No Losartan Potassium Potassium Potassium 25 MG 25 MG 25 MG Meclizine Meclizine No 1{table QD Meclizine HCl 25 MG HCl 25 MG t_as_ne HCl 25 MG eded} Flonase 50 Flonase 50 No 2{spray QD Flonase 50 MCG/ACT MCG/ACT _in_eac MCG/ACT h_nostr il} Flagyl 500 Flagyl 500 No 1{table TID Flagyl 500 MG MG t} MG Bactrim DS Bactrim DS No 1{table BID Bactrim DS 800-160 MG 800-160 MG t} 800-160 MG Cipro 500 Cipro 500 No 1{table BID Cipro 500 MG MG t} MG Flonase 50 Flonase 50 No 2{spray QD Flonase 50 MCG/ACT MCG/ACT _in_eac MCG/ACT h_nostr il} Famotidine Famotidine No 1{table QD Famotidine 20 MG 20 MG t_at_be 20 MG dtime} Famotidine Famotidine No 1{table QD Famotidine 20 MG 20 MG t_at_be 20 MG dtime} Meclizine Meclizine No 1{table QD Meclizine HCl 25 MG HCl 25 MG t_as_ne HCl 25 MG eded} Flagyl 500 Flagyl 500 No 1{table TID Flagyl 500 MG MG t} MG PriLOSEC PriLOSEC No 1{table QD PriLOSEC OTC 20 MG OTC 20 MG t} OTC 20 MG Losartan Losartan No Losartan Potassium Potassium Potassium 25 MG 25 MG 25 MG Aspirin 81 Aspirin 81 No 1{table QD Aspirin 81 81 MG 81 MG t} 81 MG Aspirin 81 Aspirin 81 No 1{table QD Aspirin 81 81 MG 81 MG t} 81 MG PriLOSEC PriLOSEC No 1{table QD PriLOSEC OTC 20 MG OTC 20 MG t} OTC 20 MG Flonase 50 Flonase 50 No 2{spray QD Flonase 50 MCG/ACT MCG/ACT _in_eac MCG/ACT h_nostr il} Meclizine Meclizine No 1{table QD Meclizine HCl 25 MG HCl 25 MG t_as_ne HCl 25 MG eded} Bactrim DS Bactrim DS No 1{table BID Bactrim DS 800-160 MG 800-160 MG t} 800-160 MG Flagyl 500 Flagyl 500 No 1{table TID Flagyl 500 MG MG t} MG PriLOSEC PriLOSEC No 1{table QD PriLOSEC OTC 20 MG OTC 20 MG t} OTC 20 MG Cipro 500 Cipro 500 No 1{table BID Cipro 500 MG MG t} MG Flonase 50 Flonase 50 No 2{spray QD Flonase 50 MCG/ACT MCG/ACT _in_eac MCG/ACT h_nostr il} Famotidine Famotidine No 1{table QD Famotidine 20 MG 20 MG t_at_be 20 MG dtime} Meclizine Meclizine No 1{table QD Meclizine HCl 25 MG HCl 25 MG t_as_ne HCl 25 MG eded} Losartan Losartan No Losartan Potassium Potassium Potassium 25 MG 25 MG 25 MG Flagyl 500 Flagyl 500 No 1{table TID Flagyl 500 MG MG t} MG Bactrim DS Bactrim DS No 1{table BID Bactrim DS 800-160 MG 800-160 MG t} 800-160 MG Cipro 500 Cipro 500 No 1{table BID Cipro 500 MG MG t} MG Aspirin 81 Aspirin 81 No 1{table QD Aspirin 81 81 MG 81 MG t} 81 MG Losartan Losartan No Losartan Potassium Potassium Potassium 25 MG 25 MG 25 MG Famotidine Famotidine No 1{table QD Famotidine 20 MG 20 MG t_at_be 20 MG dtime} PriLOSEC PriLOSEC No 1{table QD PriLOSEC OTC 20 MG OTC 20 MG t} OTC 20 MG Aspirin 81 Aspirin 81 No 1{table QD Aspirin 81 81 MG 81 MG t} 81 MG Flonase 50 Flonase 50 No 2{spray QD Flonase 50 MCG/ACT MCG/ACT _in_eac MCG/ACT h_nostr il} Bactrim DS Bactrim DS No 1{table BID Bactrim DS 800-160 MG 800-160 MG t} 800-160 MG Cipro 500 Cipro 500 No 1{table BID Cipro 500 MG MG t} MG Flagyl 500 Flagyl 500 No 1{table TID Flagyl 500 MG MG t} MG Losartan Losartan No Losartan Potassium Potassium Potassium 25 MG 25 MG 25 MG Meclizine Meclizine No 1{table QD Meclizine HCl 25 MG HCl 25 MG t_as_ne HCl 25 MG eded} Losartan Losartan No Losartan Potassium Potassium Potassium 25 MG 25 MG 25 MG Bactrim DS Bactrim DS No 1{table BID Bactrim DS 800-160 MG 800-160 MG t} 800-160 MG Flagyl 500 Flagyl 500 No 1{table TID Flagyl 500 MG MG t} MG Aspirin 81 Aspirin 81 No 1{table QD Aspirin 81 81 MG 81 MG t} 81 MG Famotidine Famotidine No 1{table QD Famotidine 20 MG 20 MG t_at_be 20 MG dtime} Meclizine Meclizine No 1{table QD Meclizine HCl 25 MG HCl 25 MG t_as_ne HCl 25 MG eded} Flonase 50 Flonase 50 No 2{spray QD Flonase 50 MCG/ACT MCG/ACT _in_eac MCG/ACT h_nostr il} Cipro 500 Cipro 500 No 1{table BID Cipro 500 MG MG t} MG PriLOSEC PriLOSEC No 1{table QD PriLOSEC OTC 20 MG OTC 20 MG t} OTC 20 MG Flonase 50 Flonase 50 No 2{spray QD Flonase 50 MCG/ACT MCG/ACT _in_eac MCG/ACT h_nostr il} PriLOSEC PriLOSEC No 1{table QD PriLOSEC OTC 20 MG OTC 20 MG t} OTC 20 MG Bactrim DS Bactrim DS No 1{table BID Bactrim DS 800-160 MG 800-160 MG t} 800-160 MG Flagyl 500 Flagyl 500 No 1{table TID Flagyl 500 MG MG t} MG Aspirin 81 Aspirin 81 No 1{table QD Aspirin 81 81 MG 81 MG t} 81 MG Losartan Losartan No Losartan Potassium Potassium Potassium 25 MG 25 MG 25 MG Famotidine Famotidine No 1{table QD Famotidine 20 MG 20 MG t_at_be 20 MG dtime} Meclizine Meclizine No 1{table QD Meclizine HCl 25 MG HCl 25 MG t_as_ne HCl 25 MG eded} Cipro 500 Cipro 500 No 1{table BID Cipro 500 MG MG t} MG PriLOSEC PriLOSEC No 1{table QD PriLOSEC OTC 20 MG OTC 20 MG t} OTC 20 MG Meclizine Meclizine No 1{table QD Meclizine HCl 25 MG HCl 25 MG t_as_ne HCl 25 MG eded} Aspirin 81 Aspirin 81 No 1{table QD Aspirin 81 81 MG 81 MG t} 81 MG Flonase 50 Flonase 50 No 2{spray QD Flonase 50 MCG/ACT MCG/ACT _in_eac MCG/ACT h_nostr il} Bactrim DS Bactrim DS No 1{table BID Bactrim DS 800-160 MG 800-160 MG t} 800-160 MG Losartan Losartan No Losartan Potassium Potassium Potassium 25 MG 25 MG 25 MG Cipro 500 Cipro 500 No 1{table BID Cipro 500 MG MG t} MG Flagyl 500 Flagyl 500 No 1{table TID Flagyl 500 MG MG t} MG Famotidine Famotidine No 1{table QD Famotidine 20 MG 20 MG t_at_be 20 MG dtime} PriLOSEC PriLOSEC No 1{table QD PriLOSEC OTC 20 MG OTC 20 MG t} OTC 20 MG Meclizine Meclizine No 1{table QD Meclizine HCl 25 MG HCl 25 MG t_as_ne HCl 25 MG eded} Famotidine Famotidine No 1{table QD Famotidine 20 MG 20 MG t_at_be 20 MG dtime} Cipro 500 Cipro 500 No 1{table BID Cipro 500 MG MG t} MG Losartan Losartan No Losartan Potassium Potassium Potassium 25 MG 25 MG 25 MG Bactrim DS Bactrim DS No 1{table BID Bactrim DS 800-160 MG 800-160 MG t} 800-160 MG Aspirin 81 Aspirin 81 No 1{table QD Aspirin 81 81 MG 81 MG t} 81 MG Flagyl 500 Flagyl 500 No 1{table TID Flagyl 500 MG MG t} MG Flonase 50 Flonase 50 No 2{spray QD Flonase 50 MCG/ACT MCG/ACT _in_eac MCG/ACT h_nostr il} PriLOSEC PriLOSEC No 1{table QD PriLOSEC OTC 20 MG OTC 20 MG t} OTC 20 MG Cipro 500 Cipro 500 No 1{table BID Cipro 500 MG MG t} MG Flonase 50 Flonase 50 No 2{spray QD Flonase 50 MCG/ACT MCG/ACT _in_eac MCG/ACT h_nostr il} Flagyl 500 Flagyl 500 No 1{table TID Flagyl 500 MG MG t} MG metroNIDAZO metroNIDAZO No 1{table BID metroNIDAZ LE 500 MG LE 500 MG t} OLE 500 MG Meclizine Meclizine No 1{table QD Meclizine HCl 25 MG HCl 25 MG t_as_ne HCl 25 MG eded} Famotidine Famotidine No 1{table QD Famotidine 20 MG 20 MG t_at_be 20 MG dtime} losartan 20 losartan 20 No losartan mg mg 20 mg Aspirin 81 Aspirin 81 No 1{table QD Aspirin 81 81 MG 81 MG t} 81 MG Cipro 500 Cipro 500 No 1{table BID Cipro 500 MG MG t} MG PriLOSEC PriLOSEC No 1{table QD PriLOSEC OTC 20 MG OTC 20 MG t} OTC 20 MG Cipro 500 Cipro 500 No 1{table BID Cipro 500 MG MG t} MG Flonase 50 Flonase 50 No 2{spray QD Flonase 50 MCG/ACT MCG/ACT _in_eac MCG/ACT h_nostr il} Flagyl 500 Flagyl 500 No 1{table TID Flagyl 500 MG MG t} MG metroNIDAZO metroNIDAZO No 1{table BID metroNIDAZ LE 500 MG LE 500 MG t} OLE 500 MG Meclizine Meclizine No 1{table QD Meclizine HCl 25 MG HCl 25 MG t_as_ne HCl 25 MG eded} Famotidine Famotidine No 1{table QD Famotidine 20 MG 20 MG t_at_be 20 MG dtime} losartan 20 losartan 20 No losartan mg mg 20 mg Aspirin 81 Aspirin 81 No 1{table QD Aspirin 81 81 MG 81 MG t} 81 MG Cipro 500 Cipro 500 No 1{table BID Cipro 500 MG MG t} MG losartan 20 losartan 20 No losartan mg mg 20 mg Cipro 500 Cipro 500 No 1{table BID Cipro 500 MG MG t} MG Cipro 500 Cipro 500 No 1{table BID Cipro 500 MG MG t} MG Flagyl 500 Flagyl 500 No 1{table TID Flagyl 500 MG MG t} MG Meclizine Meclizine No 1{table QD Meclizine HCl 25 MG HCl 25 MG t_as_ne HCl 25 MG eded} Aspirin 81 Aspirin 81 No 1{table QD Aspirin 81 81 MG 81 MG t} 81 MG Famotidine Famotidine No 1{table QD Famotidine 20 MG 20 MG t_at_be 20 MG dtime} PriLOSEC PriLOSEC No 1{table QD PriLOSEC OTC 20 MG OTC 20 MG t} OTC 20 MG Flonase 50 Flonase 50 No 2{spray QD Flonase 50 MCG/ACT MCG/ACT _in_eac MCG/ACT h_nostr il} metroNIDAZO metroNIDAZO No 1{table BID metroNIDAZ LE 500 MG LE 500 MG t} OLE 500 MG losartan 20 losartan 20 No losartan mg mg 20 mg Cipro 500 Cipro 500 No 1{table BID Cipro 500 MG MG t} MG Cipro 500 Cipro 500 No 1{table BID Cipro 500 MG MG t} MG Flagyl 500 Flagyl 500 No 1{table TID Flagyl 500 MG MG t} MG Meclizine Meclizine No 1{table QD Meclizine HCl 25 MG HCl 25 MG t_as_ne HCl 25 MG eded} Aspirin 81 Aspirin 81 No 1{table QD Aspirin 81 81 MG 81 MG t} 81 MG Famotidine Famotidine No 1{table QD Famotidine 20 MG 20 MG t_at_be 20 MG dtime} PriLOSEC PriLOSEC No 1{table QD PriLOSEC OTC 20 MG OTC 20 MG t} OTC 20 MG Flonase 50 Flonase 50 No 2{spray QD Flonase 50 MCG/ACT MCG/ACT _in_eac MCG/ACT h_nostr il} metroNIDAZO metroNIDAZO No 1{table BID metroNIDAZ LE 500 MG LE 500 MG t} OLE 500 MG Flagyl 500 Flagyl 500 No 1{table TID Flagyl 500 MG MG t} MG losartan 20 losartan 20 No losartan mg mg 20 mg Flonase 50 Flonase 50 No 2{spray QD Flonase 50 MCG/ACT MCG/ACT _in_eac MCG/ACT h_nostr il} PriLOSEC PriLOSEC No 1{table QD PriLOSEC OTC 20 MG OTC 20 MG t} OTC 20 MG metroNIDAZO metroNIDAZO No 1{table BID metroNIDAZ LE 500 MG LE 500 MG t} OLE 500 MG Cipro 500 Cipro 500 No 1{table BID Cipro 500 MG MG t} MG Aspirin 81 Aspirin 81 No 1{table QD Aspirin 81 81 MG 81 MG t} 81 MG Cipro 500 Cipro 500 No 1{table BID Cipro 500 MG MG t} MG Famotidine Famotidine No 1{table QD Famotidine 20 MG 20 MG t_at_be 20 MG dtime} Meclizine Meclizine No 1{table QD Meclizine HCl 25 MG HCl 25 MG t_as_ne HCl 25 MG eded} Cipro 500 Cipro 500 No 1{table BID Cipro 500 MG MG t} MG losartan 20 losartan 20 No losartan mg mg 20 mg Flonase 50 Flonase 50 No 2{spray QD Flonase 50 MCG/ACT MCG/ACT _in_eac MCG/ACT h_nostr il} PriLOSEC PriLOSEC No 1{table QD PriLOSEC OTC 20 MG OTC 20 MG t} OTC 20 MG Meclizine Meclizine No 1{table QD Meclizine HCl 25 MG HCl 25 MG t_as_ne HCl 25 MG eded} metroNIDAZO metroNIDAZO No 1{table BID metroNIDAZ LE 500 MG LE 500 MG t} OLE 500 MG Famotidine Famotidine No 1{table QD Famotidine 20 MG 20 MG t_at_be 20 MG dtime} Flagyl 500 Flagyl 500 No 1{table TID Flagyl 500 MG MG t} MG Cipro 500 Cipro 500 No 1{table BID Cipro 500 MG MG t} MG Aspirin 81 Aspirin 81 No 1{table QD Aspirin 81 81 MG 81 MG t} 81 MG Flagyl 500 Flagyl 500 No 1{table TID Flagyl 500 MG MG t} MG losartan 20 losartan 20 No losartan mg mg 20 mg Flonase 50 Flonase 50 No 2{spray QD Flonase 50 MCG/ACT MCG/ACT _in_eac MCG/ACT h_nostr il} PriLOSEC PriLOSEC No 1{table QD PriLOSEC OTC 20 MG OTC 20 MG t} OTC 20 MG metroNIDAZO metroNIDAZO No 1{table BID metroNIDAZ LE 500 MG LE 500 MG t} OLE 500 MG Cipro 500 Cipro 500 No 1{table BID Cipro 500 MG MG t} MG Aspirin 81 Aspirin 81 No 1{table QD Aspirin 81 81 MG 81 MG t} 81 MG Cipro 500 Cipro 500 No 1{table BID Cipro 500 MG MG t} MG Losartan Losartan No Losartan Potassium Potassium Potassium 25 MG 25 MG 25 MG Famotidine Famotidine No 1{table QD Famotidine 20 MG 20 MG t_at_be 20 MG dtime} Meclizine Meclizine No 1{table QD Meclizine HCl 25 MG HCl 25 MG t_as_ne HCl 25 MG eded} Famotidine Famotidine No 1{table QD Famotidine 20 MG 20 MG t_at_be 20 MG dtime} Flagyl 500 Flagyl 500 No 1{table TID Flagyl 500 MG MG t} MG Aspirin 81 Aspirin 81 No 1{table QD Aspirin 81 81 MG 81 MG t} 81 MG metroNIDAZO metroNIDAZO No 1{table BID metroNIDAZ LE 500 MG LE 500 MG t} OLE 500 MG Flonase 50 Flonase 50 No 2{spray QD Flonase 50 MCG/ACT MCG/ACT _in_eac MCG/ACT h_nostr il} losartan 20 losartan 20 No losartan mg mg 20 mg Meclizine Meclizine No 1{table QD Meclizine HCl 25 MG HCl 25 MG t_as_ne HCl 25 MG eded} Cipro 500 Cipro 500 No 1{table BID Cipro 500 MG MG t} MG PriLOSEC PriLOSEC No 1{table QD PriLOSEC OTC 20 MG OTC 20 MG t} OTC 20 MG Cipro 500 Cipro 500 No 1{table BID Cipro 500 MG MG t} MG Losartan Losartan No Losartan Potassium Potassium Potassium 25 MG 25 MG 25 MG metroNIDAZO metroNIDAZO No 1{table BID metroNIDAZ LE 500 MG LE 500 MG t} OLE 500 MG Famotidine Famotidine No 1{table QD Famotidine 20 MG 20 MG t_at_be 20 MG dtime} Meclizine Meclizine No 1{table QD Meclizine HCl 25 MG HCl 25 MG t_as_ne HCl 25 MG eded} Losartan Losartan No Losartan Potassium Potassium Potassium 25 MG 25 MG 25 MG Flonase 50 Flonase 50 No 2{spray QD Flonase 50 MCG/ACT MCG/ACT _in_eac MCG/ACT h_nostr il} losartan 20 losartan 20 No losartan mg mg 20 mg Flagyl 500 Flagyl 500 No 1{table TID Flagyl 500 MG MG t} MG Cipro 500 Cipro 500 No 1{table BID Cipro 500 MG MG t} MG Cipro 500 Cipro 500 No 1{table BID Cipro 500 MG MG t} MG PriLOSEC PriLOSEC No 1{table QD PriLOSEC OTC 20 MG OTC 20 MG t} OTC 20 MG Aspirin 81 Aspirin 81 No 1{table QD Aspirin 81 81 MG 81 MG t} 81 MG Cipro 500 Cipro 500 No 1{table BID Cipro 500 MG MG t} MG Losartan Losartan No Losartan Potassium Potassium Potassium 25 MG 25 MG 25 MG Flagyl 500 Flagyl 500 No 1{table TID Flagyl 500 MG MG t} MG losartan 20 losartan 20 No losartan mg mg 20 mg Aspirin 81 Aspirin 81 No 1{table QD Aspirin 81 81 MG 81 MG t} 81 MG Flonase 50 Flonase 50 No 2{spray QD Flonase 50 MCG/ACT MCG/ACT _in_eac MCG/ACT h_nostr il} metroNIDAZO metroNIDAZO No 1{table BID metroNIDAZ LE 500 MG LE 500 MG t} OLE 500 MG Cipro 500 Cipro 500 No 1{table BID Cipro 500 MG MG t} MG Famotidine Famotidine No 1{table QD Famotidine 20 MG 20 MG t_at_be 20 MG dtime} Meclizine Meclizine No 1{table QD Meclizine HCl 25 MG HCl 25 MG t_as_ne HCl 25 MG eded} PriLOSEC PriLOSEC No 1{table QD PriLOSEC OTC 20 MG OTC 20 MG t} OTC 20 MG losartan 20 losartan 20 No losartan mg mg 20 mg Meclizine Meclizine No 1{table QD Meclizine HCl 25 MG HCl 25 MG t_as_ne HCl 25 MG eded} Aspirin 81 Aspirin 81 No 1{table QD Aspirin 81 81 MG 81 MG t} 81 MG Famotidine Famotidine No 1{table QD Famotidine 20 MG 20 MG t_at_be 20 MG dtime} PriLOSEC PriLOSEC No 1{table QD PriLOSEC OTC 20 MG OTC 20 MG t} OTC 20 MG Cipro 500 Cipro 500 No 1{table BID Cipro 500 MG MG t} MG Flonase 50 Flonase 50 No 2{spray QD Flonase 50 MCG/ACT MCG/ACT _in_eac MCG/ACT h_nostr il} metroNIDAZO metroNIDAZO No 1{table BID metroNIDAZ LE 500 MG LE 500 MG t} OLE 500 MG Flagyl 500 Flagyl 500 No 1{table TID Flagyl 500 MG MG t} MG Losartan Losartan No Losartan Potassium Potassium Potassium 25 MG 25 MG 25 MG Cipro 500 Cipro 500 No 1{table BID Cipro 500 MG MG t} MG metroNIDAZO metroNIDAZO No 1{table BID metroNIDAZ LE 500 MG LE 500 MG t} OLE 500 MG Famotidine Famotidine No 1{table QD Famotidine 20 MG 20 MG t_at_be 20 MG dtime} Cipro 500 Cipro 500 No 1{table BID Cipro 500 MG MG t} MG losartan 20 losartan 20 No losartan mg mg 20 mg PriLOSEC PriLOSEC No 1{table QD PriLOSEC OTC 20 MG OTC 20 MG t} OTC 20 MG Meclizine Meclizine No 1{table QD Meclizine HCl 25 MG HCl 25 MG t_as_ne HCl 25 MG eded} Flonase 50 Flonase 50 No 2{spray QD Flonase 50 MCG/ACT MCG/ACT _in_eac MCG/ACT h_nostr il} Cipro 500 Cipro 500 No 1{table BID Cipro 500 MG MG t} MG Flagyl 500 Flagyl 500 No 1{table TID Flagyl 500 MG MG t} MG Losartan Losartan No Losartan Potassium Potassium Potassium 25 MG 25 MG 25 MG Aspirin 81 Aspirin 81 No 1{table QD Aspirin 81 81 MG 81 MG t} 81 MG metroNIDAZO metroNIDAZO No 1{table BID metroNIDAZ LE 500 MG LE 500 MG t} OLE 500 MG Famotidine Famotidine No 1{table QD Famotidine 20 MG 20 MG t_at_be 20 MG dtime} Cipro 500 Cipro 500 No 1{table BID Cipro 500 MG MG t} MG losartan 20 losartan 20 No losartan mg mg 20 mg PriLOSEC PriLOSEC No 1{table QD PriLOSEC OTC 20 MG OTC 20 MG t} OTC 20 MG Meclizine Meclizine No 1{table QD Meclizine HCl 25 MG HCl 25 MG t_as_ne HCl 25 MG eded} Flonase 50 Flonase 50 No 2{spray QD Flonase 50 MCG/ACT MCG/ACT _in_eac MCG/ACT h_nostr il} Cipro 500 Cipro 500 No 1{table BID Cipro 500 MG MG t} MG Flagyl 500 Flagyl 500 No 1{table TID Flagyl 500 MG MG t} MG Losartan Losartan No Losartan Potassium Potassium Potassium 25 MG 25 MG 25 MG Aspirin 81 Aspirin 81 No 1{table QD Aspirin 81 81 MG 81 MG t} 81 MG metroNIDAZO metroNIDAZO No 1{table BID metroNIDAZ LE 500 MG LE 500 MG t} OLE 500 MG Famotidine Famotidine No 1{table QD Famotidine 20 MG 20 MG t_at_be 20 MG dtime} Cipro 500 Cipro 500 No 1{table BID Cipro 500 MG MG t} MG losartan 20 losartan 20 No losartan mg mg 20 mg PriLOSEC PriLOSEC No 1{table QD PriLOSEC OTC 20 MG OTC 20 MG t} OTC 20 MG Meclizine Meclizine No 1{table QD Meclizine HCl 25 MG HCl 25 MG t_as_ne HCl 25 MG eded} Flonase 50 Flonase 50 No 2{spray QD Flonase 50 MCG/ACT MCG/ACT _in_eac MCG/ACT h_nostr il} Cipro 500 Cipro 500 No 1{table BID Cipro 500 MG MG t} MG Flagyl 500 Flagyl 500 No 1{table TID Flagyl 500 MG MG t} MG Losartan Losartan No Losartan Potassium Potassium Potassium 25 MG 25 MG 25 MG Aspirin 81 Aspirin 81 No 1{table QD Aspirin 81 81 MG 81 MG t} 81 MG PriLOSEC PriLOSEC No 1{table QD PriLOSEC OTC 20 MG OTC 20 MG t} OTC 20 MG Flagyl 500 Flagyl 500 No 1{table TID Flagyl 500 MG MG t} MG Famotidine Famotidine No 1{table QD Famotidine 20 MG 20 MG t_at_be 20 MG dtime} Cipro 500 Cipro 500 No 1{table BID Cipro 500 MG MG t} MG Meclizine Meclizine No 1{table QD Meclizine HCl 25 MG HCl 25 MG t_as_ne HCl 25 MG eded} metroNIDAZO metroNIDAZO No 1{table BID metroNIDAZ LE 500 MG LE 500 MG t} OLE 500 MG Flonase 50 Flonase 50 No 2{spray QD Flonase 50 MCG/ACT MCG/ACT _in_eac MCG/ACT h_nostr il} Cipro 500 Cipro 500 No 1{table BID Cipro 500 MG MG t} MG losartan 20 losartan 20 No losartan mg mg 20 mg Losartan Losartan No Losartan Potassium Potassium Potassium 25 MG 25 MG 25 MG Aspirin 81 Aspirin 81 No 1{table QD Aspirin 81 81 MG 81 MG t} 81 MG losartan 20 losartan 20 No losartan mg mg 20 mg Flonase 50 Flonase 50 No 2{spray QD Flonase 50 MCG/ACT MCG/ACT _in_eac MCG/ACT h_nostr il} Flagyl 500 Flagyl 500 No 1{table TID Flagyl 500 MG MG t} MG Cipro 500 Cipro 500 No 1{table BID Cipro 500 MG MG t} MG Famotidine Famotidine No 1{table QD Famotidine 20 MG 20 MG t_at_be 20 MG dtime} Meclizine Meclizine No 1{table QD Meclizine HCl 25 MG HCl 25 MG t_as_ne HCl 25 MG eded} PriLOSEC PriLOSEC No 1{table QD PriLOSEC OTC 20 MG OTC 20 MG t} OTC 20 MG Cipro 500 Cipro 500 No 1{table BID Cipro 500 MG MG t} MG Aspirin 81 Aspirin 81 No 1{table QD Aspirin 81 81 MG 81 MG t} 81 MG Losartan Losartan No Losartan Potassium Potassium Potassium 25 MG 25 MG 25 MG metroNIDAZO metroNIDAZO No 1{table BID metroNIDAZ LE 500 MG LE 500 MG t} OLE 500 MG Flagyl 500 Flagyl 500 No 1{table TID Flagyl 500 MG MG t} MG Famotidine Famotidine No 1{table QD Famotidine 20 MG 20 MG t_at_be 20 MG dtime} metroNIDAZO metroNIDAZO No 1{table BID metroNIDAZ LE 500 MG LE 500 MG t} OLE 500 MG Cipro 500 Cipro 500 No 1{table BID Cipro 500 MG MG t} MG PriLOSEC PriLOSEC No 1{table QD PriLOSEC OTC 20 MG OTC 20 MG t} OTC 20 MG losartan 20 losartan 20 No losartan mg mg 20 mg Losartan Losartan No Losartan Potassium Potassium Potassium 25 MG 25 MG 25 MG Cipro 500 Cipro 500 No 1{table BID Cipro 500 MG MG t} MG Meclizine Meclizine No 1{table QD Meclizine HCl 25 MG HCl 25 MG t_as_ne HCl 25 MG eded} Aspirin 81 Aspirin 81 No 1{table QD Aspirin 81 81 MG 81 MG t} 81 MG Flonase 50 Flonase 50 No 2{spray QD Flonase 50 MCG/ACT MCG/ACT _in_eac MCG/ACT h_nostr il} losartan 20 losartan 20 No losartan mg mg 20 mg Famotidine Famotidine No 1{table QD Famotidine 20 MG 20 MG t_at_be 20 MG dtime} Cipro 500 Cipro 500 No 1{table BID Cipro 500 MG MG t} MG PriLOSEC PriLOSEC No 1{table QD PriLOSEC OTC 20 MG OTC 20 MG t} OTC 20 MG Losartan Losartan No Losartan Potassium Potassium Potassium 25 MG 25 MG 25 MG metroNIDAZO metroNIDAZO No 1{table BID metroNIDAZ LE 500 MG LE 500 MG t} OLE 500 MG Cipro 500 Cipro 500 No 1{table BID Cipro 500 MG MG t} MG Meclizine Meclizine No 1{table QD Meclizine HCl 25 MG HCl 25 MG t_as_ne HCl 25 MG eded} Flagyl 500 Flagyl 500 No 1{table TID Flagyl 500 MG MG t} MG Aspirin 81 Aspirin 81 No 1{table QD Aspirin 81 81 MG 81 MG t} 81 MG Flonase 50 Flonase 50 No 2{spray QD Flonase 50 MCG/ACT MCG/ACT _in_eac MCG/ACT h_nostr il} Aspirin 81 Aspirin 81 No 1{table QD Aspirin 81 81 MG 81 MG t} 81 MG Cipro 500 Cipro 500 No 1{table BID Cipro 500 MG MG t} MG Cipro 500 Cipro 500 No 1{table BID Cipro 500 MG MG t} MG Famotidine Famotidine No 1{table QD Famotidine 20 MG 20 MG t_at_be 20 MG dtime} Flonase 50 Flonase 50 No 2{spray QD Flonase 50 MCG/ACT MCG/ACT _in_eac MCG/ACT h_nostr il} Losartan Losartan No Losartan Potassium Potassium Potassium 25 MG 25 MG 25 MG Flagyl 500 Flagyl 500 No 1{table TID Flagyl 500 MG MG t} MG losartan 20 losartan 20 No losartan mg mg 20 mg metroNIDAZO metroNIDAZO No 1{table BID metroNIDAZ LE 500 MG LE 500 MG t} OLE 500 MG Meclizine Meclizine No 1{table QD Meclizine HCl 25 MG HCl 25 MG t_as_ne HCl 25 MG eded} PriLOSEC PriLOSEC No 1{table QD PriLOSEC OTC 20 MG OTC 20 MG t} OTC 20 MG Famotidine Famotidine No 1{table QD Famotidine 20 MG 20 MG t_at_be 20 MG dtime} Flonase 50 Flonase 50 No 2{spray QD Flonase 50 MCG/ACT MCG/ACT _in_eac MCG/ACT h_nostr il} Meclizine Meclizine No 1{table QD Meclizine HCl 25 MG HCl 25 MG t_as_ne HCl 25 MG eded} Flonase 50 Flonase 50 No 2{spray QD Flonase 50 MCG/ACT MCG/ACT _in_eac MCG/ACT h_nostr il} Aspirin 81 Aspirin 81 No 1{table QD Aspirin 81 81 MG 81 MG t} 81 MG losartan 20 losartan 20 No losartan mg mg 20 mg metroNIDAZO metroNIDAZO No 1{table BID metroNIDAZ LE 500 MG LE 500 MG t} OLE 500 MG Losartan Losartan No Losartan Potassium Potassium Potassium 25 MG 25 MG 25 MG Cipro 500 Cipro 500 No 1{table BID Cipro 500 MG MG t} MG Azithromyci Azithromyci No QD Azithromyc n 250 MG n 250 MG in 250 MG Cipro 500 Cipro 500 No 1{table BID Cipro 500 MG MG t} MG PriLOSEC PriLOSEC No 1{table QD PriLOSEC OTC 20 MG OTC 20 MG t} OTC 20 MG Flagyl 500 Flagyl 500 No 1{table TID Flagyl 500 MG MG t} MG predniSONE predniSONE No 1{table predniSONE 20 MG 20 MG t_with_ 20 MG food} Famotidine Famotidine No 1{table QD Famotidine 20 MG 20 MG t_at_be 20 MG dtime} Flonase 50 Flonase 50 No 2{spray QD Flonase 50 MCG/ACT MCG/ACT _in_eac MCG/ACT h_nostr il} Meclizine Meclizine No 1{table QD Meclizine HCl 25 MG HCl 25 MG t_as_ne HCl 25 MG eded} Flonase 50 Flonase 50 No 2{spray QD Flonase 50 MCG/ACT MCG/ACT _in_eac MCG/ACT h_nostr il} Aspirin 81 Aspirin 81 No 1{table QD Aspirin 81 81 MG 81 MG t} 81 MG losartan 20 losartan 20 No losartan mg mg 20 mg metroNIDAZO metroNIDAZO No 1{table BID metroNIDAZ LE 500 MG LE 500 MG t} OLE 500 MG Losartan Losartan No Losartan Potassium Potassium Potassium 25 MG 25 MG 25 MG Cipro 500 Cipro 500 No 1{table BID Cipro 500 MG MG t} MG Azithromyci Azithromyci No QD Azithromyc n 250 MG n 250 MG in 250 MG Cipro 500 Cipro 500 No 1{table BID Cipro 500 MG MG t} MG PriLOSEC PriLOSEC No 1{table QD PriLOSEC OTC 20 MG OTC 20 MG t} OTC 20 MG Flagyl 500 Flagyl 500 No 1{table TID Flagyl 500 MG MG t} MG predniSONE predniSONE No 1{table predniSONE 20 MG 20 MG t_with_ 20 MG food} Famotidine Famotidine No 1{table QD Famotidine 20 MG 20 MG t_at_be 20 MG dtime} Flonase 50 Flonase 50 No 2{spray QD Flonase 50 MCG/ACT MCG/ACT _in_eac MCG/ACT h_nostr il} Meclizine Meclizine No 1{table QD Meclizine HCl 25 MG HCl 25 MG t_as_ne HCl 25 MG eded} Flonase 50 Flonase 50 No 2{spray QD Flonase 50 MCG/ACT MCG/ACT _in_eac MCG/ACT h_nostr il} Aspirin 81 Aspirin 81 No 1{table QD Aspirin 81 81 MG 81 MG t} 81 MG losartan 20 losartan 20 No losartan mg mg 20 mg metroNIDAZO metroNIDAZO No 1{table BID metroNIDAZ LE 500 MG LE 500 MG t} OLE 500 MG Losartan Losartan No Losartan Potassium Potassium Potassium 25 MG 25 MG 25 MG Cipro 500 Cipro 500 No 1{table BID Cipro 500 MG MG t} MG Azithromyci Azithromyci No QD Azithromyc n 250 MG n 250 MG in 250 MG Cipro 500 Cipro 500 No 1{table BID Cipro 500 MG MG t} MG PriLOSEC PriLOSEC No 1{table QD PriLOSEC OTC 20 MG OTC 20 MG t} OTC 20 MG Flagyl 500 Flagyl 500 No 1{table TID Flagyl 500 MG MG t} MG predniSONE predniSONE No 1{table predniSONE 20 MG 20 MG t_with_ 20 MG food} Losartan Losartan No Losartan Potassium Potassium Potassium 25 MG 25 MG 25 MG metroNIDAZO metroNIDAZO No 1{table BID metroNIDAZ LE 500 MG LE 500 MG t} OLE 500 MG Flagyl 500 Flagyl 500 No 1{table TID Flagyl 500 MG MG t} MG Flonase 50 Flonase 50 No 2{spray QD Flonase 50 MCG/ACT MCG/ACT _in_eac MCG/ACT h_nostr il} PriLOSEC PriLOSEC No 1{table QD PriLOSEC OTC 20 MG OTC 20 MG t} OTC 20 MG Aspirin 81 Aspirin 81 No 1{table QD Aspirin 81 81 MG 81 MG t} 81 MG Meclizine Meclizine No 1{table QD Meclizine HCl 25 MG HCl 25 MG t_as_ne HCl 25 MG eded} Cipro 500 Cipro 500 No 1{table BID Cipro 500 MG MG t} MG Azithromyci Azithromyci No QD Azithromyc n 250 MG n 250 MG in 250 MG Cipro 500 Cipro 500 No 1{table BID Cipro 500 MG MG t} MG predniSONE predniSONE No 1{table predniSONE 20 MG 20 MG t_with_ 20 MG food} losartan 20 losartan 20 No losartan mg mg 20 mg Famotidine Famotidine No 1{table QD Famotidine 20 MG 20 MG t_at_be 20 MG dtime} Flonase 50 Flonase 50 No 2{spray QD Flonase 50 MCG/ACT MCG/ACT _in_eac MCG/ACT h_nostr il} Famotidine Famotidine No 1{table QD Famotidine 20 MG 20 MG t_at_be 20 MG dtime} Meclizine Meclizine No 1{table QD Meclizine HCl 25 MG HCl 25 MG t_as_ne HCl 25 MG eded} losartan 20 losartan 20 No losartan mg mg 20 mg Azithromyci Azithromyci No QD Azithromyc n 250 MG n 250 MG in 250 MG Flonase 50 Flonase 50 No 2{spray QD Flonase 50 MCG/ACT MCG/ACT _in_eac MCG/ACT h_nostr il} predniSONE predniSONE No 1{table predniSONE 20 MG 20 MG t_with_ 20 MG food} metroNIDAZO metroNIDAZO No 1{table BID metroNIDAZ LE 500 MG LE 500 MG t} OLE 500 MG Flonase 50 Flonase 50 No 2{spray QD Flonase 50 MCG/ACT MCG/ACT _in_eac MCG/ACT h_nostr il} Flagyl 500 Flagyl 500 No 1{table TID Flagyl 500 MG MG t} MG Aspirin 81 Aspirin 81 No 1{table QD Aspirin 81 81 MG 81 MG t} 81 MG Cipro 500 Cipro 500 No 1{table BID Cipro 500 MG MG t} MG PriLOSEC PriLOSEC No 1{table QD PriLOSEC OTC 20 MG OTC 20 MG t} OTC 20 MG Losartan Losartan No Losartan Potassium Potassium Potassium 25 MG 25 MG 25 MG Cipro 500 Cipro 500 No 1{table BID Cipro 500 MG MG t} MG Cipro 500 Cipro 500 No 1{table BID Cipro 500 MG MG t} MG Aspirin 81 Aspirin 81 No 1{table QD Aspirin 81 81 MG 81 MG t} 81 MG losartan 20 losartan 20 No losartan mg mg 20 mg Azithromyci Azithromyci No QD Azithromyc n 250 MG n 250 MG in 250 MG metroNIDAZO metroNIDAZO No 1{table BID metroNIDAZ LE 500 MG LE 500 MG t} OLE 500 MG Flonase 50 Flonase 50 No 2{spray QD Flonase 50 MCG/ACT MCG/ACT _in_eac MCG/ACT h_nostr il} Famotidine Famotidine No 1{table QD Famotidine 20 MG 20 MG t_at_be 20 MG dtime} predniSONE predniSONE No 1{table predniSONE 20 MG 20 MG t_with_ 20 MG food} PriLOSEC PriLOSEC No 1{table QD PriLOSEC OTC 20 MG OTC 20 MG t} OTC 20 MG Flagyl 500 Flagyl 500 No 1{table TID Flagyl 500 MG MG t} MG Losartan Losartan No Losartan Potassium Potassium Potassium 25 MG 25 MG 25 MG Meclizine Meclizine No 1{table QD Meclizine HCl 25 MG HCl 25 MG t_as_ne HCl 25 MG eded} Cipro 500 Cipro 500 No 1{table BID Cipro 500 MG MG t} MG Flonase 50 Flonase 50 No 2{spray QD Flonase 50 MCG/ACT MCG/ACT _in_eac MCG/ACT h_nostr il} Cipro 500 Cipro 500 No 1{table BID Cipro 500 MG MG t} MG Aspirin 81 Aspirin 81 No 1{table QD Aspirin 81 81 MG 81 MG t} 81 MG losartan 20 losartan 20 No losartan mg mg 20 mg Azithromyci Azithromyci No QD Azithromyc n 250 MG n 250 MG in 250 MG metroNIDAZO metroNIDAZO No 1{table BID metroNIDAZ LE 500 MG LE 500 MG t} OLE 500 MG Flonase 50 Flonase 50 No 2{spray QD Flonase 50 MCG/ACT MCG/ACT _in_eac MCG/ACT h_nostr il} Famotidine Famotidine No 1{table QD Famotidine 20 MG 20 MG t_at_be 20 MG dtime} predniSONE predniSONE No 1{table predniSONE 20 MG 20 MG t_with_ 20 MG food} PriLOSEC PriLOSEC No 1{table QD PriLOSEC OTC 20 MG OTC 20 MG t} OTC 20 MG Flagyl 500 Flagyl 500 No 1{table TID Flagyl 500 MG MG t} MG Losartan Losartan No Losartan Potassium Potassium Potassium 25 MG 25 MG 25 MG Meclizine Meclizine No 1{table QD Meclizine HCl 25 MG HCl 25 MG t_as_ne HCl 25 MG eded} Cipro 500 Cipro 500 No 1{table BID Cipro 500 MG MG t} MG Flonase 50 Flonase 50 No 2{spray QD Flonase 50 MCG/ACT MCG/ACT _in_eac MCG/ACT h_nostr il} Losartan Losartan No Losartan Potassium Potassium Potassium 25 MG 25 MG 25 MG losartan 20 losartan 20 No losartan mg mg 20 mg Famotidine Famotidine No 1{table QD Famotidine 20 MG 20 MG t_at_be 20 MG dtime} metroNIDAZO metroNIDAZO No 1{table BID metroNIDAZ LE 500 MG LE 500 MG t} OLE 500 MG Cipro 500 Cipro 500 No 1{table BID Cipro 500 MG MG t} MG Aspirin 81 Aspirin 81 No 1{table QD Aspirin 81 81 MG 81 MG t} 81 MG Azithromyci Azithromyci No QD Azithromyc n 250 MG n 250 MG in 250 MG Cipro 500 Cipro 500 No 1{table BID Cipro 500 MG MG t} MG Meclizine Meclizine No 1{table QD Meclizine HCl 25 MG HCl 25 MG t_as_ne HCl 25 MG eded} Flonase 50 Flonase 50 No 2{spray QD Flonase 50 MCG/ACT MCG/ACT _in_eac MCG/ACT h_nostr il} predniSONE predniSONE No 1{table predniSONE 20 MG 20 MG t_with_ 20 MG food} Flagyl 500 Flagyl 500 No 1{table TID Flagyl 500 MG MG t} MG PriLOSEC PriLOSEC No 1{table QD PriLOSEC OTC 20 MG OTC 20 MG t} OTC 20 MG Flonase 50 Flonase 50 No 2{spray QD Flonase 50 MCG/ACT MCG/ACT _in_eac MCG/ACT h_nostr il} Azithromyci Azithromyci No QD Azithromyc n 250 MG n 250 MG in 250 MG metroNIDAZO metroNIDAZO No 1{table BID metroNIDAZ LE 500 MG LE 500 MG t} OLE 500 MG Cipro 500 Cipro 500 No 1{table BID Cipro 500 MG MG t} MG Flonase 50 Flonase 50 No 2{spray QD Flonase 50 MCG/ACT MCG/ACT _in_eac MCG/ACT h_nostr il} Flagyl 500 Flagyl 500 No 1{table TID Flagyl 500 MG MG t} MG PriLOSEC PriLOSEC No 1{table QD PriLOSEC OTC 20 MG OTC 20 MG t} OTC 20 MG Famotidine Famotidine No 1{table QD Famotidine 20 MG 20 MG t_at_be 20 MG dtime} Meclizine Meclizine No 1{table QD Meclizine HCl 25 MG HCl 25 MG t_as_ne HCl 25 MG eded} Flonase 50 Flonase 50 No 2{spray QD Flonase 50 MCG/ACT MCG/ACT _in_eac MCG/ACT h_nostr il} Aspirin 81 Aspirin 81 No 1{table QD Aspirin 81 81 MG 81 MG t} 81 MG Cipro 500 Cipro 500 No 1{table BID Cipro 500 MG MG t} MG losartan 20 losartan 20 No losartan mg mg 20 mg Losartan Losartan No Losartan Potassium Potassium Potassium 25 MG 25 MG 25 MG predniSONE predniSONE No 1{table predniSONE 20 MG 20 MG t_with_ 20 MG food} Azithromyci Azithromyci No QD Azithromyc n 250 MG n 250 MG in 250 MG metroNIDAZO metroNIDAZO No 1{table BID metroNIDAZ LE 500 MG LE 500 MG t} OLE 500 MG Cipro 500 Cipro 500 No 1{table BID Cipro 500 MG MG t} MG Flonase 50 Flonase 50 No 2{spray QD Flonase 50 MCG/ACT MCG/ACT _in_eac MCG/ACT h_nostr il} Flagyl 500 Flagyl 500 No 1{table TID Flagyl 500 MG MG t} MG PriLOSEC PriLOSEC No 1{table QD PriLOSEC OTC 20 MG OTC 20 MG t} OTC 20 MG Famotidine Famotidine No 1{table QD Famotidine 20 MG 20 MG t_at_be 20 MG dtime} Meclizine Meclizine No 1{table QD Meclizine HCl 25 MG HCl 25 MG t_as_ne HCl 25 MG eded} Flonase 50 Flonase 50 No 2{spray QD Flonase 50 MCG/ACT MCG/ACT _in_eac MCG/ACT h_nostr il} Aspirin 81 Aspirin 81 No 1{table QD Aspirin 81 81 MG 81 MG t} 81 MG Cipro 500 Cipro 500 No 1{table BID Cipro 500 MG MG t} MG losartan 20 losartan 20 No losartan mg mg 20 mg Losartan Losartan No Losartan Potassium Potassium Potassium 25 MG 25 MG 25 MG predniSONE predniSONE No 1{table predniSONE 20 MG 20 MG t_with_ 20 MG food} Flagyl 500 Flagyl 500 No 1{table TID Flagyl 500 MG MG t} MG Meclizine Meclizine No 1{table QD Meclizine HCl 25 MG HCl 25 MG t_as_ne HCl 25 MG eded} losartan 20 losartan 20 No losartan mg mg 20 mg Cipro 500 Cipro 500 No 1{table BID Cipro 500 MG MG t} MG Famotidine Famotidine No 1{table QD Famotidine 20 MG 20 MG t_at_be 20 MG dtime} metroNIDAZO metroNIDAZO No 1{table BID metroNIDAZ LE 500 MG LE 500 MG t} OLE 500 MG predniSONE predniSONE No 1{table predniSONE 20 MG 20 MG t_with_ 20 MG food} Aspirin 81 Aspirin 81 No 1{table QD Aspirin 81 81 MG 81 MG t} 81 MG Azithromyci Azithromyci No QD Azithromyc n 250 MG n 250 MG in 250 MG Flonase 50 Flonase 50 No 2{spray QD Flonase 50 MCG/ACT MCG/ACT _in_eac MCG/ACT h_nostr il} Flonase 50 Flonase 50 No 2{spray QD Flonase 50 MCG/ACT MCG/ACT _in_eac MCG/ACT h_nostr il} Losartan Losartan No Losartan Potassium Potassium Potassium 25 MG 25 MG 25 MG Cipro 500 Cipro 500 No 1{table BID Cipro 500 MG MG t} MG PriLOSEC PriLOSEC No 1{table QD PriLOSEC OTC 20 MG OTC 20 MG t} OTC 20 MG metroNIDAZO metroNIDAZO No 1{table BID metroNIDAZ LE 500 MG LE 500 MG t} OLE 500 MG Famotidine Famotidine No 1{table QD Famotidine 20 MG 20 MG t_at_be 20 MG dtime} Flonase 50 Flonase 50 No 2{spray QD Flonase 50 MCG/ACT MCG/ACT _in_eac MCG/ACT h_nostr il} Losartan Losartan No Losartan Potassium Potassium Potassium 25 MG 25 MG 25 MG PriLOSEC PriLOSEC No 1{table QD PriLOSEC OTC 20 MG OTC 20 MG t} OTC 20 MG Flonase 50 Flonase 50 No 2{spray QD Flonase 50 MCG/ACT MCG/ACT _in_eac MCG/ACT h_nostr il} Flagyl 500 Flagyl 500 No 1{table TID Flagyl 500 MG MG t} MG Cipro 500 Cipro 500 No 1{table BID Cipro 500 MG MG t} MG losartan 20 losartan 20 No losartan mg mg 20 mg predniSONE predniSONE No 1{table predniSONE 20 MG 20 MG t_with_ 20 MG food} Cipro 500 Cipro 500 No 1{table BID Cipro 500 MG MG t} MG Aspirin 81 Aspirin 81 No 1{table QD Aspirin 81 81 MG 81 MG t} 81 MG Azithromyci Azithromyci No QD Azithromyc n 250 MG n 250 MG in 250 MG Meclizine Meclizine No 1{table QD Meclizine HCl 25 MG HCl 25 MG t_as_ne HCl 25 MG eded} metroNIDAZO metroNIDAZO No 1{table BID metroNIDAZ LE 500 MG LE 500 MG t} OLE 500 MG Famotidine Famotidine No 1{table QD Famotidine 20 MG 20 MG t_at_be 20 MG dtime} Flonase 50 Flonase 50 No 2{spray QD Flonase 50 MCG/ACT MCG/ACT _in_eac MCG/ACT h_nostr il} Losartan Losartan No Losartan Potassium Potassium Potassium 25 MG 25 MG 25 MG PriLOSEC PriLOSEC No 1{table QD PriLOSEC OTC 20 MG OTC 20 MG t} OTC 20 MG Flonase 50 Flonase 50 No 2{spray QD Flonase 50 MCG/ACT MCG/ACT _in_eac MCG/ACT h_nostr il} Flagyl 500 Flagyl 500 No 1{table TID Flagyl 500 MG MG t} MG Cipro 500 Cipro 500 No 1{table BID Cipro 500 MG MG t} MG losartan 20 losartan 20 No losartan mg mg 20 mg predniSONE predniSONE No 1{table predniSONE 20 MG 20 MG t_with_ 20 MG food} Cipro 500 Cipro 500 No 1{table BID Cipro 500 MG MG t} MG Aspirin 81 Aspirin 81 No 1{table QD Aspirin 81 81 MG 81 MG t} 81 MG Azithromyci Azithromyci No QD Azithromyc n 250 MG n 250 MG in 250 MG Meclizine Meclizine No 1{table QD Meclizine HCl 25 MG HCl 25 MG t_as_ne HCl 25 MG eded} Meclizine Meclizine No 1{table QD Meclizine HCl 25 MG HCl 25 MG t_as_ne HCl 25 MG eded} Flagyl 500 Flagyl 500 No 1{table TID Flagyl 500 MG MG t} MG PriLOSEC PriLOSEC No 1{table QD PriLOSEC OTC 20 MG OTC 20 MG t} OTC 20 MG losartan 20 losartan 20 No losartan mg mg 20 mg Losartan Losartan No Losartan Potassium Potassium Potassium 25 MG 25 MG 25 MG Aspirin 81 Aspirin 81 No 1{table QD Aspirin 81 81 MG 81 MG t} 81 MG Cipro 500 Cipro 500 No 1{table BID Cipro 500 MG MG t} MG Flonase 50 Flonase 50 No 2{spray QD Flonase 50 MCG/ACT MCG/ACT _in_eac MCG/ACT h_nostr il} Azithromyci Azithromyci No QD Azithromyc n 250 MG n 250 MG in 250 MG Cipro 500 Cipro 500 No 1{table BID Cipro 500 MG MG t} MG predniSONE predniSONE No 1{table predniSONE 20 MG 20 MG t_with_ 20 MG food} Flonase 50 Flonase 50 No 2{spray QD Flonase 50 MCG/ACT MCG/ACT _in_eac MCG/ACT h_nostr il} Famotidine Famotidine No 1{table QD Famotidine 20 MG 20 MG t_at_be 20 MG dtime} metroNIDAZO metroNIDAZO No 1{table BID metroNIDAZ LE 500 MG LE 500 MG t} OLE 500 MG Bactrim DS Bactrim DS No 1{table BID Bactrim DS 800-160 MG 800-160 MG t} 800-160 MG Meclizine Meclizine No 1{table QD Meclizine HCl 25 MG HCl 25 MG t_as_ne HCl 25 MG eded} Cipro 500 Cipro 500 No 1{table BID Cipro 500 MG MG t} MG Famotidine Famotidine No 1{table QD Famotidine 20 MG 20 MG t_at_be 20 MG dtime} Aspirin 81 Aspirin 81 No 1{table QD Aspirin 81 81 MG 81 MG t} 81 MG Losartan Losartan No Losartan Potassium Potassium Potassium 25 MG 25 MG 25 MG Flonase 50 Flonase 50 No 2{spray QD Flonase 50 MCG/ACT MCG/ACT _in_eac MCG/ACT h_nostr il} Flagyl 500 Flagyl 500 No 1{table TID Flagyl 500 MG MG t} MG PriLOSEC PriLOSEC No 1{table QD PriLOSEC OTC 20 MG OTC 20 MG t} OTC 20 MG Bactrim DS Bactrim DS No 1{table BID Bactrim DS 800-160 MG 800-160 MG t} 800-160 MG Meclizine Meclizine No 1{table QD Meclizine HCl 25 MG HCl 25 MG t_as_ne HCl 25 MG eded} Cipro 500 Cipro 500 No 1{table BID Cipro 500 MG MG t} MG Famotidine Famotidine No 1{table QD Famotidine 20 MG 20 MG t_at_be 20 MG dtime} Aspirin 81 Aspirin 81 No 1{table QD Aspirin 81 81 MG 81 MG t} 81 MG Losartan Losartan No Losartan Potassium Potassium Potassium 25 MG 25 MG 25 MG Flonase 50 Flonase 50 No 2{spray QD Flonase 50 MCG/ACT MCG/ACT _in_eac MCG/ACT h_nostr il} Flagyl 500 Flagyl 500 No 1{table TID Flagyl 500 MG MG t} MG PriLOSEC PriLOSEC No 1{table QD PriLOSEC OTC 20 MG OTC 20 MG t} OTC 20 MG Immunizations Ordered Immunization Filled Immunization Date Status Commen ts Source Name Name Afluria single dose Afluria single dose 2019-08-21 Completed [facility] 09:17:00 - [facility] Afluria single dose Afluria single dose 2019-08-21 Completed [facility] 09:17:00 [facility] Afluria single dose Afluria single dose 2019-08-21 Completed [facility] 09:17:00 [facility] Afluria single dose Afluria single dose 2019-08-21 Completed [facility] 09:17:00 [facility] Afluria single dose Afluria single dose 2019-08-21 Completed [facility] 09:17:00 - [facility] Afluria single dose Afluria single dose 2019-08-21 Completed [facility] 09:17:00 [facility] Afluria single dose Afluria single dose 2019-08-21 Completed [facility] 09[facility]17:00 - [facility] Afluria single dose Afluria single dose 2019-08-21 Completed [facility] 09:17:00 [facility] Afluria single dose Afluria single dose 2019-08-21 Completed [facility] 09:17:00 - [facility] Afluria single dose Afluria single dose 2019-08-21 Completed [facility] 09:17:00 [facility] Afluria single dose Afluria single dose 2019-08-21 Completed [facility] 09:17:00 [facility] Afluria single dose Afluria single dose 2019-08-21 Completed [facility] 09:17:00 [facility] Afluria single dose Afluria single dose 2019-08-21 Completed [facility] 09:17:00 [facility] Afluria single dose Afluria single dose 2019-08-21 Completed [facility] 09:17:00 [facility] Afluria single dose Afluria single dose 2019-08-21 Completed [facility] 09:17:00 - [facility] Afluria single dose Afluria single dose 2019-08-21 Completed [facility] 09:17:00 - [facility] Afluria single dose Afluria single dose 2019-08-21 Completed [facility] 09:17:00 - [facility] Afluria single dose Afluria single dose 2019-08-21 Completed [facility] 09:17:00 - [facility] Afluria single dose Afluria single dose 2019-08-21 Completed [facility] 09:17:00 - [facility] Afluria single dose Afluria single dose 2019-08-21 Completed [facility] 09:17:00 - [facility] Afluria single dose Afluria single dose 2019-08-21 Completed [facility] 09:17:00 - [facility] Afluria single dose Afluria single dose 2019-08-21 Completed [facility] 09:17:00 - [facility] Afluria single dose Afluria single dose 2019-08-21 [facility]pleted [facility] 09:17:00 - [facility] Afluria single dose Afluria single dose 2019-08-21 Completed [facility] 09:17:00 - [facility] Afluria single dose Afluria single dose 2019-08-21 Completed [facility] 09:17:00 - [facility] Afluria single dose Afluria single dose 2019-08-21 Completed [facility] 09:17:00 - [facility] Afluria single dose Afluria single dose 2019-08-21 Completed [facility] 09:17:00 - [facility] Afluria single dose Afluria single dose 2019-08-21 Completed [facility] 09:17:00 - [facility] Afluria single dose Afluria single dose 2019-08-21 Completed [facility] 09:17:00 - [facility] Afluria single dose Afluria single dose 2019-08-21 Completed [facility] 09:17:00 - [facility] Afluria single dose Afluria single dose 2019-08-21 Completed [facility] 09:17:00 [facility] Afluria single dose Afluria single dose 2019-08-21 Completed [facility] 09:17:00 - [facility] Afluria single dose Afluria single dose 2019-08-21 Completed [facility] 09:17:00 - [facility] Afluria single dose Afluria single dose 2019-08-21 Completed [facility] 09:17:00 - [facility] Afluria single dose Afluria single dose 2019-08-21 Completed [facility] 09:17:00 [facility] Afluria single dose Afluria single dose 2019-08-21 Completed [facility] 09:17:00 - [facility] Afluria single dose Afluria single dose 2019-08-21 Completed [facility] 09:17:00 - [facility] Afluria single dose Afluria single dose 2019-08-21 Completed [facility] 09:17:00 - [facility] Afluria single dose Afluria single dose 2019-08-21 Completed [facility] 09:17:00 - [facility] Afluria single dose Afluria single dose 2019-08-21 Completed [facility] 09:17:00 - [facility] Afluria single dose Afluria single dose 2019-08-21 Completed [facility] 09:17:00 - [facility] Afluria single dose Afluria single dose 2019-08-21 Completed [facility] 09:17:00 - [facility] Afluria single dose Afluria single dose 2019-08-21 Completed [facility] 09:17:00 - [facility] Afluria single dose Afluria single dose 2019-08-21 Completed [facility] 09:17:00 - [facility] Afluria single dose Afluria single dose 2019-08-21 Completed [facility] 09:17:00 - [facility] Afluria single dose Afluria single dose 2019-08-21 Completed [facility] 09:17:00 - [facility] Afluria single dose Afluria single dose 2019-08-21 Completed [facility] 09:17:00 - [facility] Afluria single dose Afluria single dose 2019-08-21 Completed [facility] 09:17:00 - [facility] Afluria single dose Afluria single dose 2019-08-21 Completed [facility] 09:17:00 - [facility] Afluria single dose Afluria single dose 2019-08-21 Completed [facility] 09:17:00 - [facility] Afluria single dose Afluria single dose 2019-08-21 Completed [facility] 09:17:00 - [facility] Afluria single dose Afluria single dose 2019-08-21 Completed [facility] 09:17:00 - [facility] Afluria single dose Afluria single dose 2019-08-21 Completed [facility] 09:17:00 [facility] Afluria single dose Afluria single dose 2019-08-21 Completed [facility] 09:17:00 - [facility] Afluria single dose Afluria single dose 2019-08-21 Completed [facility] 09:17:00 - [facility] Afluria single dose Afluria single dose 2019-08-21 Completed [facility] 09:17:00 - [facility] Afluria single dose Afluria single dose 2019-08-21 Completed [facility] 09:17:00 - [facility] Afluria single dose Afluria single dose 2019-08-21 Completed [facility] 09:17:00 - [facility] Afluria single dose Afluria single dose 2019-08-21 Completed [facility] 09:17:00 - [facility] Afluria single dose Afluria single dose 2019-08-21 Completed [facility] 09:17:00 - [facility] Afluria single dose Afluria single dose 2019-08-21 Completed [facility] 09:17:00 - [facility] Afluria single dose Afluria single dose 2019-08-21 Completed [facility] 09:17:00 - [facility] Afluria single dose Afluria single dose 2019-08-21 Completed [facility] 00:00:00 [facility] Vital Signs Vital Name Observation Time Observation Value Comments Source height 2022-08-22 09:20:00 70 [in_i] [facility] weight 2022-08-22 09:20:00 188.2 [lb_av] [facility] temperature 2022-08-22 09:20:00 98.2 [degF] [facility] bmi 2022-08-22 09:20:00 27.00 kg/m2 [facility] oximetry 2022-08-22 09:20:00 97 % [facility] respiratory rate 2022-08-22 09:20:00 16 /min Comm on [facility] blood pressure 2022-08-22 09:20:00 125 mm[Hg] [facility] - systolic [facility] blood pressure 2022-08-22 09:20:00 83 mm[Hg] [facility] - diastolic [facility] height 2022-08-18 09:00:00 70 [in_i] [facility] weight 2022-08-18 09:00:00 190.1 [lb_av] Common [facility] temperature 2022-08-18 09:00:00 98.6 [degF] Common [facility] bmi 2022-08-18 09:00:00 27.27 kg/m2 [facility] oximetry 2022-08-18 09:00:00 99 % [facility] respiratory rate 2022-08-18 09:00:00 15 /min Comm on [facility] blood pressure 2022-08-18 09:00:00 128 mm[Hg] Common [facility] - systolic [facility] blood pressure 2022-08-18 09:00:00 75 mm[Hg] Common [facility] - diastolic [facility] height 2022-05-27 16:40:00 70 [in_i] Common [facility] weight 2022-05-27 16:40:00 190 [lb_av] [facility] bmi 2022-05-27 16:40:00 27.26 kg/m2 [facility] height 2022-05-26 08:20:00 70 [in_i] [facility] weight 2022-05-26 08:20:00 171 [lb_av] [facility] temperature 2022-05-26 08:20:00 97.9 [degF] [facility] bmi 2022-05-26 08:20:00 24.53 kg/m2 [facility] oximetry 2022-05-26 08:20:00 99 % Common [facility] respiratory rate 2022-05-26 08:20:00 15 /min Comm on [facility] blood pressure 2022-05-26 08:20:00 120 mm[Hg] Common [facility] - systolic [facility] blood pressure 2022-05-26 08:20:00 80 mm[Hg] Common [facility] - diastolic [facility] height 2021-11-18 15:30:00 70 [in_i] Common [facility] weight 2021-11-18 15:30:00 192 [lb_av] [facility] temperature 2021-11-18 15:30:00 97.1 [degF] [facility] bmi 2021-11-18 15:30:00 27.55 kg/m2 [facility] oximetry 2021-11-18 15:30:00 98 % [facility] respiratory rate 2021-11-18 15:30:00 16 /min Comm on [facility] blood pressure 2021-11-18 15:30:00 122 mm[Hg] Common [facility] - systolic [facility] blood pressure 2021-11-18 15:30:00 88 mm[Hg] Common [facility] - diastolic [facility] height 2021-11-04 15:00:00 70 [in_i] Common [facility] weight 2021-11-04 15:00:00 195.2 [lb_av] Common [facility] temperature 2021-11-04 15:00:00 97.9 [degF] Common [facility] bmi 2021-11-04 15:00:00 28.01 kg/m2 [facility] oximetry 2021-11-04 15:00:00 97 % [facility] respiratory rate 2021-11-04 15:00:00 18 /min [facility] blood pressure 2021-11-04 15:00:00 114 mm[Hg] [facility] - systolic [facility] blood pressure 2021-11-04 15:00:00 80 mm[Hg] [facility] - diastolic [facility] Procedures Procedure Date / Time Performed Performing Clinician [facility] myles [id number] 2020-08-25 00:00:00 NIKKO [facility] [id number] 2020-08-25 00:00:00 HAAER [facility] [id number] 2020-08-25 00:00:00 TONIE [facility] Plan of Care Planned Activity Planned Date Details Comments Source Future Scheduled 2022-09-29 COVID-19 VACCINE (#1) [facility] Test 09:05:10 [code = COVID-19 VACCINE (#1)] Future Scheduled 2022-09-29 COLONOSCOPY SCREENING [facility] Hospital Test 09:05:10 [code = COLONOSCOPY SCREENING] Future Scheduled 2022-09-29 INFLUENZA VACCINE Method [facility] Hospital Test 09:05:10 [code = INFLUENZA VACCINE] Future Scheduled 2022-05-19 HEPATITIS B VACCINES Met [facility] Test 08:26:15 (1 of 3 - 3-dose series) [code = HEPATITIS B VACCINES (1 of 3 - 3-dose series)] Future Scheduled 2022-05-19 COVID-19 VACCINE (#1) [facility] Test 08:26:15 [code = COVID-19 VACCINE (#1)] Future Scheduled 2022-05-19 Hepatitis C screening [facility] Test 08:26:15 (procedure) [code = 142813811] Future Scheduled 2022-05-19 COLONOSCOPY SCREENING [facility] Test 08:26:15 [code = COLONOSCOPY SCREENING] Future Scheduled 2022-05-19 INFLUENZA VACCINE Method ist Hospital Test 08:26:15 [code = INFLUENZA VACCINE] Future Scheduled COVID-19 VACCINE (1) Met [facility] Test [code = COVID-19 VACCINE (1)] Future Scheduled Hepatitis C screening [facility] Test (procedure) [code = 137414104] Future Scheduled INFLUENZA VACCINE [facility] Test [code = INFLUENZA VACCINE] Encounters Start End Encounter Admission Attending Care Care Encounter Source Date/Time Date/Time Type Type Clinicians Facility Department ID 2022-10-27 Outpatient GORDON, Na STLMLC STLMLC [id number] 2 Common 10:59:00 [id number] [facility] 2022-10-24 Outpatient GORDON, Na STLMLC STLMLC [id number] 2 Common 13:17:01 [id number] [facility] 2022-09-29 Outpatient GORDON, Na STLMLC STLMLC [id number] 2 Common 09:23:01 [id number] [facility] 2022-08-22 Outpatient Gordon, Na STLMLC STLMLC [id number] 2 Common 10:07:00 [id number] [facility] 2022-08-18 Outpatient Gordon, Na STLMLC STLMLC [id number] 2 Common 10:01:00 [id number] [facility] 2022-05-25 Outpatient Gordon, Na STLMLC STLMLC [id number] 2 Common 10:07:01 [id number] [facility] 2022-05-11 Outpatient Gordon, Na STLMLC STLMLC [id number] 2 Common 10:06:00 [facility] 2022-03-16 Outpatient Gordon, Na STLMLC STLMLC [id number] 2 Common 14:14:00 [facility] 2022-02-01 Outpatient Gordon, Na STLMLC STLMLC [id number] 2 Common 08:59:00 [facility] 2022-01-31 Outpatient [facility] [id number] MS 16:33:12 [id number] [facility] 2022-01-28 Outpatient Gordon, Na STLMLC STLMLC [id number] 2 Common 08:06:01 [facility] 2021-10-06 Outpatient Gordon, Na STLMLC STLMLC [id number] 2 Common 13:29:51 [id number] [facility] 2021-10-06 Outpatient Gordon, Na STLMLC STLMLC [id number] 2 Common 12:06:19 [id number] [facility] 2021-10-06 Outpatient Della, Na STLMLC STLMLC [id number] 2 Common 11:39:51 [id number] [facility] 2021-10-06 Outpatient Hanh Gordon STLMLC STLMLC [id number] 2 Common 11:10:16 [id number] [facility] 2020-09-18 Inpatient FRANSISCA Bennett [facility] [id number] [facility] 18:51:00 Dwayne Garcia [facility] 2020-08-25 Inpatient Pawan Baum [facility] [id number] [facility] 07:00:00 84 [facility] 2022-10-20 2022-10-20 (INJ) STLMLC STLMLC [id number] Co mmon 00:00:00 00:00:00 Injection Spir [facility] 2022-10-13 2022-10-13 ([place]) Nurse STLMLC STLMLC [id number] Common 00:00:00 00:00:00 Visit [facility] 2022-10-06 2022-10-06 ([place]) Nurse STLMLC STLMLC [id number] Common 00:00:00 00:00:00 Visit [facility] 2022-09-29 2022-09-29 (INJ) STLMLC STLMLC [id number] Co mmon 00:00:00 00:00:00 Injection Spir [facility] 2022-09-28 2022-09-28 (TEL) STLMLC STLMLC [id number] Co mmon 00:00:00 00:00:00 [facility] 2022-09-22 2022-09-22 (INJ) STLMLC STLMLC [id number] Co mmon 00:00:00 00:00:00 Injection Spir [facility] 2022-09-15 2022-09-15 (INJ) STLMLC STLMLC [id number] Co mmon 00:00:00 00:00:00 Injection Spir [facility] 2022-09-08 2022-09-08 (INJ) STLMLC STLMLC [id number] Co mmon 00:00:00 00:00:00 Injection Spir it [facility] 2022-09-01 2022-09-01 (INJ) STLMLC STLMLC [id number] Co mmon 00:00:00 00:00:00 Injection Spir [facility] 2022-08-25 2022-08-25 (INJ) STLMLC STLMLC [id number] Co mmon 00:00:00 00:00:00 Injection Spir [facility] 2022-08-22 2022-08-22 OFFICE STLMLC STLMLC [id number] Co mmon 00:00:00 00:00:00 VISIT [facility] LEVEL 4 [facility] 2022-08-18 2022-08-18 (INJ) STLMLC STLMLC [id number] Co mmon 00:00:00 00:00:00 Injection Spir [facility] 2022-08-11 2022-08-11 (INJ) STLMLC STLMLC [id number] Co mmon 00:00:00 00:00:00 Injection Spir [facility] 2022-08-02 2022-08-02 (INJ) STLMLC STLMLC [id number] Co mmon 00:00:00 00:00:00 Injection Spir [facility] 2022-07-28 2022-07-28 ([place]) Nurse STLMLC STLMLC [id number] Common 00:00:00 00:00:00 Visit [facility] 2022-07-21 2022-07-21 ([place]) Nurse STLMLC STLMLC [id number] Common 00:00:00 00:00:00 Visit [facility] 2022-07-14 2022-07-14 ([place]) Nurse STLMLC STLMLC [id number] Common 00:00:00 00:00:00 Visit [facility] 2022-07-07 2022-07-07 (INJ) STLMLC STLMLC [id number] Co mmon 00:00:00 00:00:00 Injection Spir [facility] 2022-06-30 2022-06-30 (TEL) STLMLC STLMLC [id number] Co mmon 00:00:00 00:00:00 [facility] 2022-06-30 2022-06-30 ([place]) Nurse STLMLC STLMLC [id number] Common 00:00:00 00:00:00 Visit [facility] 2022-06-23 2022-06-23 ([place]) Nurse STLMLC STLMLC [id number] Common 00:00:00 00:00:00 Visit [facility] 2022-06-16 2022-06-16 ([place]) Nurse STLMLC STLMLC [id number] Common 00:00:00 00:00:00 Visit [facility] 2022-06-09 2022-06-09 ([place]) Nurse STLMLC STLMLC [id number] Common 00:00:00 00:00:00 Visit [facility] 2022-05-27 2022-05-27 OFFICE STLMLC STLMLC [id number] Co mmon 00:00:00 00:00:00 VISIT EST Spir it PT LEVEL 3 [facility] 2022-05-26 2022-05-26 OFFICE STLMLC STLMLC [id number] Co mmon 00:00:00 00:00:00 VISIT [facility] ESTAB PT - [facility] LEVEL 2 [facility] 2022-05-19 2022-05-19 ([place]) Nurse STLMLC STLMLC [id number] Common 00:00:00 00:00:00 Visit [facility] 2022-05-12 2022-05-12 (INJ) STLMLC STLMLC [id number] Co mmon 00:00:00 00:00:00 Injection Spir it [facility] 2022-05-05 2022-05-05 (INJ) STLMLC STLMLC [id number] Co mmon 00:00:00 00:00:00 Injection Spir it [facility] 2022-04-28 2022-04-28 (INJ) STLMLC STLMLC [id number] Co mmon 00:00:00 00:00:00 Injection Spir it [facility] 2022-04-212022-04-21 (INJ) STLMLC STLMLC [id number] Co mmon 00:00:00 00:00:00 Injection Spir it [facility] 2022-04-19 2022-04-19 (TEL) STLMLC STLMLC [id number] Co mmon 00:00:00 00:00:00 [facility] 2022-04-14 2022-04-14 (INJ) STLMLC STLMLC [id number] Co mmon 00:00:00 00:00:00 Injection Spir it [facility] 2022-04-07 2022-04-07 (NV) Nurse STLMLC STLMLC [id number] Common 00:00:00 00:00:00 Visit [facility] 2022-03-31 2022-03-31 (NV) Nurse STLMLC STLMLC [id number] Common 00:00:00 00:00:00 Visit [facility] 2022-03-24 2022-03-24 (NV) Nurse STLMLC STLMLC [id number] Common 00:00:00 00:00:00 Visit [facility] 2022-03-17 2022-03-17 (INJ) STLMLC STLMLC [id number] Co mmon 00:00:00 00:00:00 Injection Spir [facility] 2022-03-09 2022-03-09 (TEL) STLMLC STLMLC [id number] Co mmon 00:00:00 00:00:00 [facility] 2022-03-08 2022-03-08 (TEL) STLMLC STLMLC [id number] Co mmon 00:00:00 00:00:00 [facility] 2022-03-08 2022-03-08 OFFICE STLMLC STLMLC [id number] Co mmon 00:00:00 00:00:00 VISIT EST Spir it PT LEVEL 3 [facility] 2022-03-03 2022-03-03 (INJ) STLMLC STLMLC [id number] Co mmon 00:00:00 00:00:00 Injection Spir it [facility] 2022-02-17 2022-02-17 (INJ) STLMLC STLMLC [id number] Co mmon 00:00:00 00:00:00 Injection Spir [facility] 2022-02-10 2022-02-10 ([place]) Nurse STLMLC STLMLC [id number] Common 00:00:00 00:00:00 Visit [facility] 2022-02-03 2022-02-03 (INJ) STLMLC STLMLC [id number] Co mmon 00:00:00 00:00:00 Injection Spir [facility] 2022-01-27 2022-01-27 (INJ) STLMLC STLMLC [id number] Co mmon 00:00:00 00:00:00 Injection Spir [facility] 2022-01-20 2022-01-20 (INJ) STLMLC STLMLC [id number] Co mmon 00:00:00 00:00:00 Injection Spir [facility] 2022-01-13 2022-01-13 (INJ) STLMLC STLMLC [id number] Co mmon 00:00:00 00:00:00 Injection Spir [facility] 2022-01-06 2022-01-06 (INJ) STLMLC STLMLC [id number] Co mmon 00:00:00 00:00:00 Injection Spir [facility] 2021-12-30 2021-12-30 (INJ) STLMLC STLMLC [id number] Co mmon 00:00:00 00:00:00 Injection Spir [facility] 2021-12-23 2021-12-23 (INJ) STLMLC STLMLC [id number] Co mmon 00:00:00 00:00:00 Injection Spir [facility] 2021-12-16 2021-12-16 (INJ) STLMLC STLMLC [id number] Co mmon 00:00:00 00:00:00 Injection Spir [facility] 2021-12-09 2021-12-09 (INJ) STLMLC STLMLC [id number] Co mmon 00:00:00 00:00:00 Injection Spir [facility] 2021-12-07 2021-12-07 Travel 1.2.840.1 [id number] [id number] Methodi 00:00:00 00:00:[address] 3.430.2.7 0.2.7.3.698 Ho spita .3.037527 084.8 l .8 2021-12-07 2021-12-07 Travel 1.2.840.1 1.2.658.222 [id number] Methodi 00:00:00 00:00:[address] 3.430.2.7 0.2.7.3.698 Ho spita .3.307160 084.8 l .8 2021-12-02 2021-12-02 Telephone Elias, 1.2.840.8 [id number] Methodi 00:00:00 00:00:[address] 3.430.2.7 Hospit a .3.782980 l .8 2021-12-02 2021-12-02 (TEL) STLMLC STLMLC [id number] Co mmon 00:00:00 00:00:00 [facility] 2021-12-02 2021-12-02 ([place]) Nurse STLC STLMLC [id number] Common 00:00:00 00:00:00 Visit [facility] 2021-12-02 2021-12-02 Telephone Elias, 1.2.840.9 [id number] Methodi 00:00:00 00:00:[address] 3.430.2.7 Hospit a .3.249428 l .8 2021-11-22 2021-11-22 (TEL) STLMLC STLMLC [id number] Co mmon 00:00:00 00:00:00 [facility] 2021-11-22 2021-11-22 ([place]) Nurse STLMLC STLMLC [id number] Common 00:00:00 00:00:00 Visit [facility] 2021-11-18 2021-11-18 OFFICE STLMLC STLMLC [id number] Co mmon 00:00:00 00:00:00 VISIT [place] ESTAB PT - [facility] LEVEL 2 [facility] 2021-11-04 2021-11-04 PREV VISIT STLMLC STLMLC [id number] Common 00:00:00 00:00:00 EST AGE [facility] 40-64 - [facility] 2021-11-04 2021-11-04 (TEL) STLMLC STLMLC [id number] Co mmon 00:00:00 00:00:00 [facility] 2021-05-05 2021-05-05 Outpatient STLMLC STLMLC [id number] Common 00:00:00 00:00:00 [facility] 2021-04-30 2021-04-30 Outpatient STLMLC STLMLC [id number] Common 00:00:00 00:00:00 [facility] 2021-04-05 2021-04-05 Outpatient STLMLC STLMLC [id number] Common 00:00:00 00:00:00 [facility] 2020-08-25 2020-08-25 Outpatient Pawan Baum [facility] REF [id number] [facility] 20:30:00 20:30:[address] [place] [address] 2020-08-11 2020-08-11 Orders [facility] 1.2.840.1 [id number] Methodi 00:00:00 00:00:00 Only my, 53111.1.1 614 [facility] 3.430.2.7 [facility] .3.551141 l .8 2020-05-02 2020-05-02 [facility] [id number] Common 17:59:00 17:59:[address] Family [facility] Medicine [facility] 2020-04-30 2020-04-30 [facility] [id number] Common 13:40:00 13:40:00 [place] [address] [facility] 2019-11-05 2019-11-05 [facility] [id number] Common 16:05:00 16:05:[address] [facility] 2019-08-21 2019-08-21 [facility] [id number] Common 08:00:00 08:00:[address] [facility] 2019-07-22 2019-07-22 [facility] [id number] Common 16:20:00 16:20:[address] [facility] 2019-01-07 2019-01-07 [facility] [id number] Common 10:00:00 10:00:[address] [facility] 2018-12-27 2018-12-27 [facility] [id number] Common 16:47:00 16:47:[address] [facility] Results Test Description Test Time Test Comments Results Result Comments Source SARS-COV-2(COVID19),NAAT 2022-03-08 00:00:00 Test Item Value Reference Range Interpretation Comme nts SARS-CoV-2 INTERPRETATION (test code = 18053-3) POSITIVE SEE NO TE A SOURCE (test code = 20827-2) NASOPHARYNGEAL CBC W/AUTO [id number] 07:30:00 Test Item Value Reference Range Interpretation Comments WHITE BLOOD CELL (test code = 10.9 x10 3/uL 4.8-10.8 H WBC) RED BLOOD CELL (test code = 4.30 x10 6/uL 4.70-6.10 L RBC) HEMOGLOBIN (test code = HGB) 12.7 g/dL 14.5-20 L HEMATOCRIT (test code = HCT) 38.2 % 42.0-52.0 L MEAN CELL VOLUME (test code = 88.8 fL 80.0-94.0 N MCV) MEAN CELL HGB (test code = MCH) 29.5 pg 27-31 N MEAN CELL HGB CONCENTRATION 33.2 G/DL 33-36.5 N (test code = MCHC) RED CELL DISTRIBUTION WIDTH 12.8 % 12.9-16.9 L (test code = RDW) PLATELET COUNT (test code = 327 x10 3/uL 150-440 N PLT) MEAN PLATELET VOLUME (test code 8.0 fL 8.9-12.4 L = MPV) NEUTROPHIL % (test code = NT%) 62.7 [...] 0.08 x10 3/uL 0.0-0.20 N BASIC METABOLIC [id number] 05:09:00 Test Item Value Reference Range Interpretation [...] mg/dL 8.8-10.2 L = CA) BASIC METABOLIC [id number] 04:45:00 Test Item Value Reference Range Interpretation [...] code 8.4 mg/dL 8.8-10.2 L = CA) [id number] 04:45:00 Test Item Value Reference Range Interpretation Comments PHOSPHOROUS (test code = PHOS) 2.6 mg/dL 2.7-4.5 L [id number] 04:45:00 Test Item Value Reference Range Interpretation Comments MAGNESIUM (test code = MAG) 2.0 mg/dL 1.4-2.6 N CBC W/AUTO [id number] 04:26:00 Test Item Value Reference Range Interpretation [...] = BA#) 0.06 x10 3/uL 0.0-0.20 N [id number] 16:55:00 Test Item Value Reference Range Interpretation Comments GLUBED (test code = GLUBED) 89 MG/DL 70-105 N [id number] 12:41:00 Test Item Value Reference Range Interpretation Comments GLUBED (test code = GLUBED) 78 MG/DL 70-105 N - CT ABD PELVIS [id number] 12:29:00 [facility] 1975 Sex: MPatient Name: VALERI BENJAMIN Unit No: [id number] EXAMS: CPT CODE: [id number] CT ABD PELVIS W/CONT 70198 CT Abdomen and Pelvis with contrast. Location: [...] at this location. 2. 4 cm collection ofnonorganized fluid between the rectum and seminal vesicles. This may be phlegmon or hematoma. Follow-up may be of benefit. at 1229 Reported and signed by: Nikita Garcia MD Name: VALERI BENJAMIN [facility] Phys: Arleen Ramirez DO [address] : 1975 Age: 45 Sex: [place] [address] Loc: P .[id number] 1 Exam Date: 09/19/2020 Status: ADM IN PH: FAX: PAGE 1 Signed Report (CONTINUED) Patient Name: VALERI BENJAMIN Unit No: [id number] EXAMS: CPT CODE: [id number] CT ABD PELVIS W/CONT 80428 (Continued) CC: Arleen Charles DO; Hanh Gordon DO; Dwayne Bennett MD Technologist: ADDISON Porras(Chiki)(CT) CTDI: 13.01 DLP: 685 Trscr Dt/Tm: 09/19/2020 (1221) by:[email or web address] Printed Date/Time: 09/19/2020 (8574) Name: VALERI BENJAMIN [facility] Phys: Arleen Ramirez DO [address] : 1975 Age: 45 Sex: M [place] [address] Loc: P.[id number] 1 Exam Date: 09/19/2020 Status: ADM IN PH: FAX: PAGE 2 Signed [id number] 08:24:00 Test Item Value Reference Range Interpretation Comments GLUBED (test code = GLUBED) 77 MG/DL 70-105 N CBC W/MANUAL [id number] 06:03:00 Test Item Value Reference Range Interpretation [...] code NORMAL NORMAL = PLTMORPH) BASIC METABOLIC [id number] 04:15:00 Test Item Value Reference Range Interpretation [...] code 8.5 mg/dL 8.8-10.2 L = CA) [id number] 04:15:00 Test Item Value Reference Range Interpretation Comments PHOSPHOROUS (test code = PHOS) 3.1 mg/dL 2.7-4.5 N [id number] 04:15:00 Test Item Value Reference Range Interpretation Comments MAGNESIUM (test code = MAG) 2.0 mg/dL 1.4-2.6 N CBC W/MANUAL [id number] 03:22:00 Test Item Value Reference Range Interpretation [...] code = LYMPH) % 20-40 CBC W/MANUAL [id number] 03:22:00 Test Item Value Reference Range Interpretation [...] code = LYMPH) % 20-40 BASIC METABOLIC [id number] 06:29:00 Test Item Value Reference Range Interpretation [...] code 8.4 mg/dL 8.8-10.2 L = CA) [id number] 06:29:00 Test Item Value Reference Range Interpretation Comments MAGNESIUM (test code = MAG) 2.1 mg/dL 1.4-2.6 N CBC W/AUTO [id number] 05:39:00 Test Item Value Reference Range Interpretation [...] BA#) 0.08 x10 3/uL 0.0-0.20 N SURGICAL [id number] 15:39:00 Test Item Value Reference Range Interpretation Comments SURGICAL SPECIMENS (test code = SURG) RUN DATE: 08/26/20 [facility] - LAB PAGE 1 RUN TIME: 1539 Specimen Inquiry RUN USER: INTERFACE PATIENT: SOURAVVALERI LOC: ElizS POD B U #: [id number] AGE/SX: 45/M ROOM: [facility] RE08/25/20REG DR: Pawan Baum MD : 71 BED: 1 DIS: STATUS: ADM IN TLOC: SPEC #: [id number] RECD: 08/25/20 STATUS: NIMA REQ #: [id number] MUSTAPHA: 08/25/[address]: Pawan Baum MD ENTERED: 08/25/20 SP TYPE: SURG OTHR DR: Boo Olsen MD, Na Ly DOORDERED: PATHGM5, PATH SPEC, H E STAIN HISTOLOGY: TISSUE ID BLK PCS DONNA LEV / PROCEDURE DISPOSITION ____ ___ ___ ___ ___ COLON SEG NTUMR A 5 1 TISSUES: A. COLON SEGMENTAL [id number] - Sigmoid Colon CLINICAL HISTORY Diverticulitis FINAL DIAGNOSIS SIGMOID COLON, RESECTION: -ACUTE DIVERTICULITIS WITH MICROSCOPIC PERFORATIONS AND ORGANIZING ABSCESS -ONE BENIGN LYMPH NODE -SEROSAL ADHESIONS -NO DYSPLASIA OR MALIGNANCY IS IDENTIFIED CPT 63394 GROSS DESCRIPTION Received in formalin labeled with [...] The bowel wall does not appear thickened. News Gathering Technician sections are submitted: A1-A2, bowel resection margins; A3, possible diverticulum with abscess; A4, possible diverticula; A5, remainder of colon, statement services representative. CM/ta. Signed SIGNATURE ON FILE Sangita Arnett MD 08/26/20 1539 END OF REPORT CBC W/MANUAL [id number] 08:31:00 Test Item Value Reference Range Interpretation [...] code NORMAL NORMAL = PLTMORPH) BASIC METABOLIC [id number] 06:27:00 Test Item Value Reference Range Interpretation [...] code 8.9 mg/dL 8.8-10.2 N = CA) [id number] 06:27:00 Test Item Value Reference Range Interpretation Comments MAGNESIUM (test code = MAG) 2.1 mg/dL 1.4-2.6 N CBC W/MANUAL [id number] 06:21:00 Test Item Value Reference Range Interpretation [...] = LYMPH) % 20-40 Novel Coronavirus 2018 [id number] 11:11:00 Test Item Value Reference Range Interpretation [...] resul t in this assay.Performed At: [facility] [place] [address] [place], [place] [id number] brooklyn Catalan MD Ph:[phone] COMPREHENSIVE METABOLIC [id number] 13:25:00 Test Item Value Reference Range Interpretation [...] 45-120 N PHOSPHATASE (test code = ALKP) [id number] 13:25:00 Test Item Value Reference Range Interpretation Comments PREALBUMIN (test code = PREALB) 27.6 MG/ML 15-42 N COMPREHENSIVE METABOLIC [id number] 11:55:00 Test Item Value Reference Range Interpretation [...] 45-120 N PHOSPHATASE (test code = ALKP) [id number] 11:55:00 Test Item Value Reference Range Interpretation Comments PREALBUMIN (test code = PREALB) MG/ML 15-42 CBC W/AUTO [id number] 09:26:00 Test Item Value Reference Range Interpretation [...] BA#) 0.10 x10 3/uL 0.0-0.20 N PROTHROMBIN [id number] 09:26:00 Test Item Value Reference Range Interpretation [...] 2.5-3.5recurren t systemic emboli sm. THROMBOPLASTIN TIME [id number] 09:26:00 Test Item Value Reference Range Interpretation Comments THROMBOPLASTIN TIME 27.8 SECONDS 23.8-34.8 N INTERPRE TATIVE PARTIAL (test code = DATA: erapeutic PTT) range: Unfractionated heparin:55 - 80 seconds Argatroban:1.5 to 3 times the basel ine PTT
[2022-11-03 11:48] LABS: MPV 6.4 fL (7.6-11.3)
[2022-11-03 11:50] LABS: Protime INR 0.95
--- NOTE | 2022-11-03 11:51 | RAD REPORT ---
EXAM DESCRIPTION: Rose Single View11/03/2022 11:39 am CLINICAL HISTORY: Chest pain COMPARISON: 2015 FINDINGS: The lungs appear clear of acute infiltrate. The heart is normal size IMPRESSION: No acute abnormalities displayed
[2022-11-03 11:55] LABS: Absolute Lymphocytes (CBC) 3.4 K/uL (0.7-4.9); Hematocrit 49.2 % (39.6-49.0); Lymphocytes % 16.2 % (15.3-44.8); MCV 89.1 fL (80-100); RBC Red Blood Cell Count 5.52 M/uL (4.33-5.43)
[2022-11-03 12:16] LABS: Albumin 3.8 g/dL (3.4-5.0); Bilirubin Direct 0.2 mg/dL (0-0.2); Bilirubin Total 0.7 mg/dL (0.2-1.0); Magnesium 2.6 mg/dL (1.6-2.4); Protein, Total 8.1 g/dL (6.4-8.2); Troponin High Sensitivity 4.1 pg/mL (<58.9)
[2022-11-03 12:49] LABS: Blood Morphology Comment NOT SEEN (NOT SEEN); Platelet Estimate ADEQ; White Blood Cell Scan OK (OK)
[2022-11-03] MEDS ORDERED: NA CHLORIDE 0.9% 1,000 ML ONE (13:48)
--- NOTE | 2022-11-03 14:14 | RAD REPORT ---
EXAM DESCRIPTION: CT - Head Brain Wo Cont - 11/03/2022 2:06 pm CLINICAL HISTORY: HEADACHE COMPARISON: Head Brain Wo Cont dated 08/20/2016; HEAD BRAIN W O CONTRAST dated 01/22/2013; Abdomen Pelvis W Contrast dated 11/03/2022 TECHNIQUE: All CT scans are performed using dose optimization technique as appropriate and may inclu de automated exposure control or mA/KV adjustment according to patient size. FINDINGS: No intracranial hemorrhage, hydrocephalus or extra-axial fluid collection.No areas of brai n edema or evidence of midline shift. The paranasal sinuses and mastoids are clear. The calvarium is intact. IMPRESSION: No acute intracranial abnormality.
--- NOTE | 2022-11-03 14:16 | RAD REPORT ---
EXAM DESCRIPTION: CTAbdomen Pelvis W Contrast - 11/03/2022 2:06 pm CLINICAL HISTORY: abdominal pain, leukocytosis COMPARISON: Abdomen Pelvis W Contrast dated 09/18/2020; Abdomen Pelvis W Contrast dated 07/30/2020 ; Abdomen Pelvis W Contrast dated 11/18/2019; Abdomen Pelvis W Contrast dated 07/13/2018 TECHNIQUE: CT of the abdomen and pelvis was performed. All CT scans are performed using dose optimization technique as appropriate and may include automated exposure control or mA/KV adjustment according to patient size. FINDINGS: Lower chest: No acute abnormality. Liver: Hepatic steatosis Biliary: No biliary ductal dilatation. Stomach: No significant focal abnormality. Duodenum: No significant focal abnormality. Pancreas: No significant abnormality. Spleen: No significant abnormality. Adrenal: Left adrenal nodule which is unchanged since at least 2020 and benign. Kidney/ureter: No hydronephrosis. 3 mm stone in lower pole right kidney. Too small to characterize an d/or benign appearing renal lesions are noted. Retroperitoneum: No retroperitoneal adenopathy. Vascular: No aneurysm. Atherosclerosis. Bowel: No significant focal abnormality. Peritoneum: No ascites or free air. Tiny fat containing umbilical hernia. Prior left inguinal hernia repair. Bladder: Grossly unremarkable. Reproductive: No adnexal masses. Bones: No acute fracture. Other: n/a IMPRESSION: No acute intra-abdominal or pelvic finding. Normal appendix.
[2022-11-03] MEDS ORDERED: METOCLOPRAMIDE 10 MG/2mL INJ ONE (15:59)
[2022-11-03] MEDS ORDERED: KETOROLAC 30 MG/ML INJ ONE (15:59)
[2022-11-03] MEDS ORDERED: NA CHLORIDE 0.9% 250 ML ONE (15:59)
[2022-11-03 16:08] LABS: Urine Blood Negative (Negative); Urine Glucose Negative (Negative); Urine Protein Negative (Negative)
--- NOTE | 2022-11-03 17:15 | EDPHYS ---
Physician Documentation [facility] Name: Xiomara Haro Age: 47 yrs Sex: Male : 1975 Arrival Date: 11/03/2022 Time: 11:19 Bed 2 Private MD: ED Physician Froylan Parry HPI: 11/03 11:19 This 47 yrs old Male presents to ER via Ambulatory with complaints of Palpitations. [facility] 11:19 Onset: The symptoms/episode began/occurred gradually, 1.5 week(s) ago. Duration:. Is a [facility] 47-year-old male with history of myocardial infarction the presents emerged department with complaints of fatigue when getting out of bed been approximately a week and a half ago. Patient states today he developed palpitations, headache. Denies chest pain, denies shortness of breath. Does have some mild lower abdominal pain.. Historical: - Allergies: 11:21 No Known Allergies; iw - Home Meds: 11:21 losartan 25 mg Oral tab 1 tab once daily [Active]; rosuvastatin 5 mg Oral tab 1 tab iw once daily [Active]; aspirin 81 mg Oral chew 1 tab once daily [Active]; just got off of immune therpy (allergy shots) [Active]; testosterone therapy [Active]; - PMHx: 11:21 Diverticulitis; Myocardial infarction; "stress induced"; iw - Immunization history:: Adult Immunizations up to date. - Social history:: Smoking status: Patient/guardian denies using tobacco, the patient reports quitting approximately 13 years ago. ROS: 11:19 Constitutional: Positive for fatigue. [facility] 11:19 Cardiovascular: Positive for palpitations. 11:19 Respiratory: Negative for cough, shortness of breath. 11:19 Neuro: Positive for weakness. 11:19 All other systems are negative. Exam: 11:19 Constitutional: This is a well developed, well nourished patient who is awake, alert, jmm and in no acute distress. Head/Face: atraumatic. Eyes: EOMI, no conjunctival erythema appreciated ENT: Moist Mucus Membranes Neck: Trachea midline, Supple Chest/axilla: Normal chest wall appearance and motion. 11:19 Respiratory: Normal respirations, no respiratory distress appreciated Abdomen/GI: Non distended Back: Normal ROM Skin: General appearance color normal MS/ Extremity: Moves all extremities, no obvious deformities appreciated, no edema noted to the lower extremities Neuro: Awake and alert Psych: Behavior is normal, Mood is normal, Patient is cooperative and pleasant 11:19 Cardiovascular: Rate: normal, Rhythm: regular. Vital Signs: 11:19 BP 165 / 98; Pulse 107; Resp 18; Temp 97.9; Pulse Ox 100% on R/A; iw 13:15 BP 138 / 80; Pulse 94; Resp 18; Pulse Ox 98% on R/A; ll1 13:47 BP 134 / 89; Pulse 93; Resp 24 S; Temp 98.2(O); Weight 87.09 kg (R); Height 5 ft. 10 kc6 in. (177.80 cm) (R); 14:05 BP 135 / 95; Pulse 89; Resp 19; Pulse Ox 97% on R/A; ll1 17:35 BP 129 / 87; Pulse 92; Resp 16; Pulse Ox 100% ; Pain 3/10; ll1 13:47 Body Mass Index 27.55 (87.09 kg, 177.80 cm) [facility] MDM: 11:19 Patient medically screened. [facility] 17:13 Differential diagnosis: Palpitations, acute AR, sepsis, meningitis, headache, migraine. [facility] Data reviewed: vital signs, nurses notes. Management of patient was discussed with the following:. I considered the following discharge prescriptions or medication management in the emergency department Medications were administered in the Emergency Department. See MAR. Counseling: I had a detailed discussion with the patient and/or guardian regarding: the historical points, exam findings, and any diagnostic results supporting the discharge/admit diagnosis, lab results, radiology results, the need for outpatient follow up, to return to the emergency department if symptoms worsen or persist or if there are any questions or concerns that arise at home. ED course: Patient is alert nontoxic in appearance in the ED. Patient did have leukocytosis on the CBC. I do not currently suspect sepsis. Patient's neck is supple, I do not suspect meningitis. CT of the abdomen was negative. Patient encouraged to increase fluid intake follow-up PCP for reevaluation and repeat CBC. Patient otherwise given strict return precautions. 11/03 10: Order name: Basic Metabolic Panel [facility] 11/03 10: Order name: CBC with Diff [facility] 11/03 10: Order name: D-Dimer [facility] 02/23 11:26 Order name: LFT's [facility] 11/03 11:26 Order name: Magnesium [facility] 11/03 11:26 Order name: NT PRO-BNP [facility] 11/03 11:26 Order name: PT-INR [facility] 11/03 11:26 Order name: Troponin HS [facility] 11/03 11:50 Order name: Protime (+INR); Complete Time: 11:53 EDMS 11/03 11:50 Order name: D-Dimer; Complete Time: 11:53 EDMS 11/03 12:16 Order name: Basic Metabolic Panel; Complete Time: 12:17 EDMS 11/03 12:16 Order name: Liver (Hepatic) Function; Complete Time: 12:17 EDMS 11/03 12:16 Order name: Troponin High Sensitivity; Complete Time: 12:17 EDMS 11/03 12:16 Order name: NT PRO-BNP; Complete Time: 12:17 EDMS 11/03 11:26 Order name: XRAY Chest (1 view) [facility] 11/03 11:52 Order name: RAD; Complete Time: 11:53 EDMS 11/03 12:16 Order name: Magnesium; Complete Time: 12:17 EDMS 11/03 12:22 Order name: CBC with Automated Diff; Complete Time: 13:20 EDMS 11/03 12:49 Order name: CBC Smear Scan; Complete Time: 13:20 EDMS 11/03 13:42 Order name: Lactate w/ 2H reflex if indic. [facility] 11/03 13:42 Order name: Blood Culture Adult (2) [facility] 11/03 13:42 Order name: CPK [facility] 11/03 13:42 Order name: CT Abd/Pelvis - IV Contrast Only [facility] 11/03 13:52 Order name: [facility] Screen Profile [facility] 11/03 14:25 Order name: Lactate w/ 2H reflex if indic.; Complete Time: 15:33 EDMS 11/03 14:31 Order name: Creatine Phosphokinase; Complete Time: 15:33 EDMS 11/03 14:54 Order name: [facility] Screen; Complete Time: 15:33 EDMS 11/03 15:33 Order name: Troponin High Sensitivity [facility] 11/03 16:08 Order name: Urine Dipstick-Ancillary; Complete Time: 17:10 EDMS 11/03 16:34 Order name: Troponin High Sensitivity; Complete Time: 17:10 EDMS 11/03 11:26 Order name: EKG; Complete Time: 11: [facility] 11/03 11:26 Order name: Cardiac monitoring; Complete Time: 11: [facility] 11/03 11:26 Order name: EKG - Nurse/Tech; Complete Time: : [facility] 11/03 11:26 Order name: IV Saline Lock; Complete Time: : [facility] 11/03 11:26 Order name: Labs collected and sent; Complete Time: : [facility] 11/03 11:26 Order name: O2 Per Protocol; Complete Time: : [facility] 11/03 11:26 Order name: O2 Sat Monitoring; Complete Time: : [facility] 11/03 12:25 Order name: Urine Dipstick-Ancillary (obtain specimen); Complete Time: 17:40 [facility] 11/03 13:52 Order name: CT Head Brain wo Cont [facility] 11/03 14:15 Order name: CT; Complete Time: 15:33 EDMS 11/03 14:17 Order name: CT; Complete Time: 15:33 EDMS EC:19 Rate is 49 beats/min. Rhythm is regular. QRS Dixon is Normal. GA interval is normal. QRS jmm interval is normal. QT interval is normal. No Q waves. T waves are Normal. No ST changes noted. Reviewed by me. Administered Medications: 13:47 Drug: NS 0.9% 1000 ml Route: IV; Rate: 1 bolus; Site: left antecubital; kc6 15:00 Follow up: Response: No adverse reaction; IV Status: Completed infusion; IV Intake: ll1 1000ml 16:03 Drug: Ketorolac 30 mg {Note: RASS 0, pain 8/10.} Route: IVP; Site: left antecubital; ll1 17:37 Follow up: Response: No adverse reaction; Pain is decreased; RASS: Alert and Calm (0) ll1 16:03 Drug: Reglan (metoCLOPramide) 10 mg Route: IVP; Site: left antecubital; ll1 17:37 Follow up: Response: No adverse reaction; RASS: Alert and Calm (0) ll1 Disposition: 18:42 Co-signature as Attending Physician, Froylan KWON was immediately available on-site ms3 in the Emergency Department for consultation in the care of the patient. Disposition Summary: 11/03/22 17:15 Discharge Ordered Location: Home [facility] Condition: Stable jmm Diagnosis - Palpitations jmm Followup: jmm - With: Private Physician - When: 2 - 3 days - Reason: Recheck today's complaints, Continuance of care, Re-evaluation by your physician Discharge Instructions: - Discharge Summary Sheet jmm - Palpitations jm Forms: - Medication Reconciliation Form [facility] - Thank You Letter [facility] - Antibiotic Education jmm - Prescription Opioid Use [facility] Signatures: Dispatcher [employer] EDMS Miguelangel Ashby PA PA jmm Williams, Irene, RN RN iw Jonathan Osborn RN RN ll1 Froylan Parry, DO ms3 Karina Liu FNP FNP [id number] Johanny Guzman, RN RN [id number]
--- NOTE | 2022-11-03 17:15 | ER ---
Nurse's Notes [facility] Name: Xiomara Haro Age: 47 yrs Sex: Male : 1975 Arrival Date: 11/03/2022 Time: 11:19 Bed 2 Private MD: Diagnosis: Palpitations Presentation: 11/03 11:19 Chief complaint: Patient states: last night he had some heart palpitations, past few iw days I've been waking up and feels off balance , my head feels weird like pressure. Coronavirus screen: At this time, the client does not indicate any symptoms associated with coronavirus-19. Ebola Screen: Patient negative for fever greater than or equal to 101.5 degrees Fahrenheit, and additional compatible Ebola Virus Disease symptoms Patient denies exposure to infectious person. Initial Sepsis Screen: Does the patient meet any 2 criteria? No. Patient's initial sepsis screen is negative. Does the patient have a suspected source of infection? No. Patient's initial sepsis screen is negative. Risk Assessment: Do you want to hurt yourself or someone else? Patient reports no desire to harm self or others. Onset of symptoms was October 31, 2022. 11:19 Method Of Arrival: Ambulatory iw 11:19 Acuity: DULCE 2 iw Historical: - Allergies: 11:21 No Known Allergies; iw - Home Meds: 11:21 losartan 25 mg Oral tab 1 tab once daily [Active]; rosuvastatin 5 mg Oral tab 1 tab iw once daily [Active]; aspirin 81 mg Oral chew 1 tab once daily [Active]; just got off of immune therpy (allergy shots) [Active]; testosterone therapy [Active]; - PMHx: 11:21 Diverticulitis; Myocardial infarction; "stress induced"; iw - Immunization history:: Adult Immunizations up to date. - Social history:: Smoking status: Patient/guardian denies using tobacco, the patient reports quitting approximately 13 years ago. Screenin:31 [facility] ED Fall Risk Assessment (Adult) History of falling in the last 3 months, kc6 including since admission No falls in past 3 months (0 pts) Confusion or Disorientation No (0 pts) Intoxicated or Sedated No (0 pts) Impaired Gait No (0 pts) Mobility Assist Device Used No (0 pt) Altered Elimination No (0 pt) Score/Fall Risk Level 0 - 2 = Low Risk Oriented to surroundings, Maintained a safe environment, Educated pt \\T\\ family on fall prevention, incl call for assistance when getting out of bed, Assessed \\T\\ reinforced patient's understanding of fall precautions, Hourly rounding (assess needs \\T\\ fall precautionary measures) done. Abuse screen: Denies threats or abuse. Denies injuries from another. Nutritional screening: No deficits noted. Tuberculosis screening: No symptoms or risk factors identified. Assessment: 11:30 General: Appears uncomfortable, Behavior is calm, cooperative, appropriate for age. ll1 General: Chest feeling "weird" and SOB off/on since last night after midnight. Pain: Complains of pain in chest Quality of pain is described as "weird" Pain began 1 day ago. Cardiovascular: Reports chest pain, shortness of breath. Respiratory: Reports shortness of breath. 13:19 Reassessment: No changes from previously documented assessment. Patient and/or family ll1 updated on plan of care and expected duration. Pain level reassessed. Patient is alert, oriented x 3, equal unlabored respirations, skin warm/dry/pink. gait steady to restroom. 14:00 Reassessment: No changes from previously documented assessment. Patient and/or family ll1 updated on plan of care and expected duration. Pain level reassessed. Patient is alert, oriented x 3, equal unlabored respirations, skin warm/dry/pink. 16:00 Reassessment: No changes from previously documented assessment. Patient and/or family ll1 updated on plan of care and expected duration. Pain level reassessed. Patient is alert, oriented x 3, equal unlabored respirations, skin warm/dry/pink. 17:00 Reassessment: No changes from previously documented assessment. Patient and/or family ll1 updated on plan of care and expected duration. Pain level reassessed. Patient is alert, oriented x 3, equal unlabored respirations, skin warm/dry/pink. 17:37 Reassessment: No changes from previously documented assessment. Patient and/or family ll1 updated on plan of care and expected duration. Pain level reassessed. Patient is alert, oriented x 3, equal unlabored respirations, skin warm/dry/pink. Patient states feeling better. Vital Signs: 11:19 BP 165 / 98; Pulse 107; Resp 18; Temp 97.9; Pulse Ox 100% on R/A; iw 13:15 BP 138 / 80; Pulse 94; Resp 18; Pulse Ox 98% on R/A; ll1 13:47 BP 134 / 89; Pulse 93; Resp 24 S; Temp 98.2(O); Weight 87.09 kg (R); Height 5 ft. 10 kc6 in. (177.80 cm) (R); 14:05 BP 135 / 95; Pulse 89; Resp 19; Pulse Ox 97% on R/A; ll1 17:35 BP 129 / 87; Pulse 92; Resp 16; Pulse Ox 100% ; Pain 3/10; ll1 13:47 Body Mass Index 27.55 (87.09 kg, 177.80 cm) kc6 ED Course: 11:19 Patient arrived in ED. iw 11:19 Karina Liu FNP is PHCP. 7 11:19 Froylan Parry DO is Attending Physician. [facility] 11:21 Triage completed. iw 11:21 PHCP role handed off by Karina Liu FNP [facility] 11:21 Miguelangel Ashby PA is PHCP. [facility] 11:25 Jonathan Osborn, BITA is Primary Nurse. ll1 11:25 Arm band placed on Patient placed in an exam room, on a stretcher. ll1 11:30 Inserted saline lock: 22 gauge in left antecubital area, using aseptic technique. Blood ll1 collected. 11:31 Patient has correct armband on for positive identification. Placed in gown. Bed in low kc6 position. Call light in reach. Side rails up X2. 11:39 No provider procedures requiring assistance completed. ll1 12:23 Notified Nurse Practitioner and/or Physician Chimney Builder of a critical lab result(s), WBC ll1 20.8. 13:55 Blood Culture Adult (2) Sent. ll1 13:55 Inserted saline lock: 20 gauge in right antecubital area, using aseptic technique. vg1 Blood collected. 13:55 Second set of blood cultures drawn right ac. vg1 13:59 Lactate w/ 2H reflex if indic. Sent. ll1 14:08 [place] Screen Profile Sent. ll1 16:03 Troponin High Sensitivity Sent. ll1 17:38 IV discontinued, intact, bleeding controlled, No redness/swelling at site. Pressure ll1 dressing applied. Administered Medications: 13:47 Drug: NS 0.9% 1000 ml Route: IV; Rate: 1 bolus; Site: left antecubital; kc6 15:00 Follow up: Response: No adverse reaction; IV Status: Completed infusion; IV Intake: ll1 1000ml 16:03 Drug: Ketorolac 30 mg {Note: RASS 0, pain 8/10.} Route: IVP; Site: left antecubital; ll1 17:37 Follow up: Response: No adverse reaction; Pain is decreased; RASS: Alert and Calm (0) ll1 16:03 Drug: Reglan (metoCLOPramide) 10 mg Route: IVP; Site: left antecubital; ll1 17:37 Follow up: Response: No adverse reaction; RASS: Alert and Calm (0) [facility] Medication: 11:39 VIS not applicable for this client. ll1 Intake: 15:00 IV: 1000ml; Total: 1000ml. 1 Outcome: 17:15 Discharge ordered by MD. ontiveros 17:38 Discharged to home ambulatory. 1 17:38 Condition: stable 17:38 Discharge instructions given to patient, family, Instructed on discharge instructions, follow up and referral plans. Demonstrated understanding of instructions, medications. 17:39 Patient left the ED. [facility] Signatures: Miguelangel Ashby PA PA jmm Williams, Irene, RN RN iw Garcia, Victoria, RN RN vg1 Jonathan Osborn RN RN ll1 Karina Liu, AUDIOVISUAL LEAD TECHNICIAN AUDIOVISUAL LEAD TECHNICIAN Johanny Reilly RN RN kc6
[2022-11-03 18:25] VITALS: TEMP 98.2
[2022-11-03 18:26] VITALS: BP 135/95; O2SAT 97
--- NOTE | 2022-11-04 13:22 | EKG ---
Test Date: 2022-11-03 Test Time: 11:29:40 Spray Dry Operator: ANNA MEASUREMENT RESULTS: Intervals: Rate: 81 DE: 140 QRSD: 86 QT: 358 QTc: 415 [place]: P: 62 DE: 140 QRS: 51 T: 47 INTERPRETIVE STATEMENTS: Normal sinus rhythm with sinus arrhythmia Normal ECG Compared to ECG 08/31/2017 14:16:44 No significant changes Electronically Signed On 11-04-22 13:19:00 EMPLOYEE SERVICES MANAGER by Tom Joseph
== END 2022-11-03 17:39 | disposition home or self-care (01) ==
LOC: ER 11:17
DX: R00.2 Palpitations (principal); R51.9 Headache, unspecified; R53.1 Weakness; I25.2 Old myocardial infarction; Z79.82 Long term (current) use of aspirin
CPT/HCPCS: 96361; 93005; 87040 ×2; 85025; 80048; 36415; 83735; 82550; 86308; 85610; 85379; 80076; 83605; 81003; 84484 ×2; 83880; 70450; 74177; 71045; 96375; 96374; 99284; Q9967; J2765; J7050; J7030

== ENCOUNTER 2023-04-10 17:34 | Emergency (ER) | payer OTHER ==
--- OUTSIDE RECORDS SUMMARY | 2023-04-10 17:51 | XMS REPORT | Continuity of Care Document ---
:1975 Author Organization [facility] t Address [address] [place] [address] Care Team Providers Name Role Phone Hanh Gordon DO Primary Care Physician Eric Srinivasan Attending Clinician Unavailable Radha Steele Attending Clinician Unavailable Hanh GORDON Attending Clinician Unavailable Dwayne Bennett Attending Clinician Unavailable Pawan Baum Attending Clinician Unavailable Anthony Griffin MD Attending Clinician Haylee Marvin Attending Clinician [phone] Dwayne Bennett Admitting Clinician Unavailable Hanh Gordon Admitting Clinician Unavailable Payers Payer Name Policy Type Policy Number Effective Date Expiration Date S [place] [id number] 2022 [facility] 00:00:00 [facility] ter BSBS CHOICE [id number] 2019 [facility] 00:00:00 Hospital [id number] /09/[id number] PO Problems Condition Condition Condition Status Onset Resolution Last Treating Co mments Source Name Details Category Date Date Treatment Clinician Date [id number] Chronic Problem Common fatigue [facility] [id number] Insomnia, Problem Com mon unspecifie Spirit d type - [facility] Allergic Allergic Problem Commo n rhinitis rhinitis Spirit due to due to - CHI pollen pollen [facility] [id number] Hx of Problem Common colectomy Spirit [facility] Right Right Problem Common inguinal inguinal Spirit hernia hernia [facility] [id number] Mixed Problem Common hyperlipid Spirit emia [facility] Allergic Acute Problem Common rhinitis allergic Spirit rhinitis [facility] Indigestio Indigestio Problem C ommon n n Spirit [facility] [id number] Mild Problem Common depression [facility] Diverticul Diverticul Problem C ommon itis itis [facility] Vitamin D Vitamin D Problem Com mon deficiency deficiency Sp rj [facility] [id number] Other Problem Common chronic Spirit pain [facility] [id number] Neuropathy Problem Co mmon [facility] [id number] Chronic Problem Commo n 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 [facility] Allergies, Adverse Reactions, Alerts Allergy Allergy Status Severity Reaction(s) Onset Inactive Treating Comm ents Source Name Type Date Date Clinician eggs DA Active SV RUNNY 2019-09 [facility] NOSE,SNEEZIN 10-20 [place] [facility] 00 are [facility] Codeine Codeine Active Unknown Common Spirit [facility] Family History Family Member Diagnosis Comments Start Date Stop Date Source Natural mother No Known Problems Met [facility] Natural father No Known Problems Met [facility] Social History Social Habit Start Date Stop Date Quantity Comments Source Gender identity 2021-12-06 Identifies as Method t 13:56:12 male gender [facility] (finding) History of Tobacco Common Spirit - Use [facility] Sex Assigned At Common Sp rj - [facility] Sexual orientation Method is Hospital Alcohol intake 2019-06-20 2019-06-20 Current drinker [facility] 00:00:00 00:00:00 of alcohol Hospital (finding) History of Social 2019-05-02 2019-05-[address] function 00:00:00 00:00:00 Hospital Alcohol Comment 2019-02-07 2019-02-07 Socially Protestant 00:00:00 00:00:00 Hospital Tobacco use and 2019-02-07 2019-02-07 Smokeless tobacco [facility] exposure 00:00:00 00:00:00 non-user Hospital Smoking Status Start Date Stop Date Source Former Smoker 2022-09-29 00:00:00 2022-09-29 00:00:00 Common S pirit - [facility]I [facility] Medications Ordered Filled Start Stop Current Ordering Indication Dosage Frequency Signature Comments Components Source Medication Medication Date Date Medication? Clinician (SIG) Name Name allergy allergy 2022-0 No .5mL Common extract extract 2- Spirit 00:00: - [facility]I [facility] allergy allergy 2023-0 No .5mL Common extract extract 2 Spirit 00:00: - [facility]I [facility] allergy allergy 2023-0 No .45mL Common extract extract 2 Spirit 00:00: - [facility]I [facility] allergy allergy 2023-0 No .45mL Common extract extract 2- Spirit 00:00: - [facility]I [facility] allergy allergy 2023-0 No .45mL Common extract extract 2- Spirit 00:00: - [facility] allergy allergy 2023-0 No .45mL Common extract extract 2- Spirit 00:00: - [facility] allergy allergy 2023-0 No .4mL Common extract extract 1 Spirit 00:00: - [facility] allergy allergy 2023-0 No .4mL Common extract extract 1-26 Spirit 00:00: - [facility] allergy allergy 2023-0 No .4mL Common extract extract 1- Spirit 00:00: - [facility] allergy allergy 2023-0 No .4mL Common extract extract 1- Spirit 00:00: - [facility] allergy allergy 2023-0 No .4mL Common extract extract 1- Spirit 00:00: - [facility] allergy allergy 2023-0 No .4mL Common extract extract 1- Spirit 00:00: - [facility] allergy allergy 2023-0 No .35mL Common extract extract 1 Spirit 00:00: - [facility] allergy allergy 3-0 No .35mL Common extract extract 1-19 Spirit 00:00: - [facility]I 00 [facility] allergy allergy 3-0 No .35mL Common extract extract 1-19 Spirit 00:00: - [facility]I 00 [facility] allergy allergy 3-0 No .35mL Common extract extract 1- Spirit 00:00: - [facility]I 00 [facility] allergy allergy 3-0 No .35mL Common extract extract 1-19 Spirit 00:00: - [facility]I 00 [facility] allergy allergy 3-0 No .35mL Common extract extract 1- Spirit 00:00: - [facility] allergy allergy 3-0 No .35mL Common extract extract 1- Spirit 00:00: - [facility] allergy allergy 3-0 No .35mL Common extract extract 1- Spirit 00:00: - [facility] allergy allergy 3-0 No .3mL Common extract extract 1-12 Spirit 00:00: - [facility] allergy allergy 3-0 No .3mL Common extract extract 1-12 Spirit 00:00: - [facility] allergy allergy 3-0 No .3mL Common extract extract 1-12 Spirit 00:00: - [facility]I 00 [facility] allergy allergy 3-0 No .3mL Common extract extract 1-12 Spirit 00:00: - [facility] allergy allergy 3-0 No .3mL Common extract extract 1-12 Spirit 00:00: - [facility]I 00 [facility] allergy allergy 3-0 No .3mL Common extract extract 1-12 Spirit 00:00: - [facility]I 00 [facility] allergy allergy 3-0 No .3mL Common extract extract 1-12 Spirit 00:00: - [facility]I 00 [facility] allergy allergy 3-0 No .3mL Common extract extract 1-12 [facility] 00:00: - [facility]I 00 [facility] allergy allergy 3-0 No .3mL Common extract extract 1-12 [facility] 00:00: - [facility]I 00 [facility] allergy allergy 3-0 No .3mL Common extract extract 1-12 [facility] 00:00: - [facility]I 00 [facility] allergy allergy 2023-0 No .3mL Common extract extract 1-12 Spirit 00:00: - [facility]I 00 [facility] allergy allergy 2023-0 No .3mL Common extract extract 1-12 Spirit 00:00: - [facility]I 00 [facility] allergy allergy 3-0 No .25mL Common extract extract 1-05 Spirit 00:00: - CHI 00 [facility] allergy allergy 2023-0 No .25mL Common extract extract 1-05 Spirit 00:00: - [facility]I 00 [facility] allergy allergy 2023-0 No .25mL Common extract extract 1-05 Spirit 00:00: - [facility]I 00 [facility] allergy allergy 3-0 No .25mL Common extract extract 1-05 [facility] 00:00: - [facility]I 00 [facility] allergy allergy 3-0 No .25mL Common extract extract 1-05 [facility] 00:00: - [facility]I 00 [facility] allergy allergy 2023-0 No .25mL Common extract extract 1-05 [facility] 00:00: - [facility]I 00 [facility] allergy allergy 2023-0 No .25mL Common extract extract 1-05 [facility] 00:00: - [facility]I 00 [facility] allergy allergy 3-0 No .25mL Common extract extract 1-05 Spirit 00:00: - [facility]I 00 [facility] allergy allergy 3-0 No .25mL Common extract extract 1-05 [facility] 00:00: - CHI 00 [facility] allergy allergy 2023-0 No .25mL Common extract extract 1-05 [facility] 00:00: - [facility]I 00 [facility] allergy allergy 2023-0 No .25mL Common extract extract 1-05 Spirit 00:00: - CHI 00 [facility] allergy allergy 2023-0 No .25mL Common extract extract 1-05 Spirit 00:00: - [facility]I 00 [facility] allergy allergy 2023-0 No .25mL Common extract extract 1-05 Spirit 00:00: - [facility]I 00 [facility] allergy allergy 2023-0 No .25mL Common extract extract 1-05 Spirit 00:00: - CHI 00 [facility] allergy allergy 2022-1 No .2mL Common extract extract 2-29 Spirit 00:00: - [facility]I 00 [facility] allergy allergy 2022-1 No .2mL Common extract extract 2-29 Spirit 00:00: - CHI 00 [facility] allergy allergy 2021-09 No .2mL Common extract extract 2- Spirit 00:00: - CHI 00 [facility] allergy allergy 2021-09 No .2mL Common extract extract 2- Spirit 00:00: - CHI 00 [facility] allergy allergy 2021-09 No .2mL Common extract extract 2- Spirit 00:00: - CHI 00 [facility] allergy allergy 2021-09 No .2mL Common extract extract 2- Spirit 00:00: - CHI 00 [facility] allergy allergy 2021-09 No .2mL Common extract extract 2- Spirit 00:00: - CHI 00 [facility] allergy allergy 2021-09 No .2mL Common extract extract 2- Spirit 00:00: - CHI 00 [facility] allergy allergy 2021-09 No .2mL Common extract extract 2- Spirit 00:00: - CHI 00 [facility] allergy allergy 2021-09 No .2mL Common extract extract 2- Spirit 00:00: - CHI 00 [facility] allergy allergy 2021-09 No .2mL Common extract extract 2- Spirit 00:00: - CHI 00 [facility] allergy allergy 2021-09 No .2mL Common extract extract 2- Spirit 00:00: - CHI 00 [facility] allergy allergy 2021- No .2mL Common extract extract 2- Spirit 00:00: - CHI 00 [facility] allergy allergy 2021- No .2mL Common extract extract 2- Spirit 00:00: - CHI 00 [facility] allergy allergy 2021- No .2mL Common extract extract 2- Spirit 00:00: - [facility]I 00 [facility] allergy allergy 2021- No .2mL Common extract extract 2- Spirit 00:00: - CHI 00 [facility] allergy allergy 2021- No .15mL Common extract extract 2- Spirit 00:00: - CHI 00 [facility] allergy allergy 2021- No .15mL Common extract extract 2- Spirit 00:00: - CHI 00 [facility] allergy allergy 2021- No .15mL Common extract extract 2-22 Spirit 00:00: - CHI 00 [facility] allergy allergy 2021-09 No .15mL Common extract extract 2-22 Spirit 00:00: - CHI 00 [facility] allergy allergy 2021-09 No .15mL Common extract extract 2-22 Spirit 00:00: - CHI 00 [facility] allergy allergy 2021-09 No .15mL Common extract extract 2-22 Spirit 00:00: - CHI 00 [facility] allergy allergy 2021-09 No .15mL Common extract extract 2-22 Spirit 00:00: - [facility]I 00 [facility] allergy allergy 2021-09 No .15mL Common extract extract 2-22 Spirit 00:00: - CHI 00 [facility] allergy allergy 2021-09 No .15mL Common extract extract 2-22 Spirit 00:00: - CHI 00 [facility] allergy allergy 2021-09 No .15mL Common extract extract 2-22 Spirit 00:00: - CHI 00 [facility] allergy allergy 2021-09 No .15mL Common extract extract 2-22 Spirit 00:00: - CHI 00 [facility] allergy allergy 2021-09 No .15mL Common extract extract 2-22 Spirit 00:00: - CHI 00 [facility] allergy allergy 2021-09 No .15mL Common extract extract 2-22 Spirit 00:00: - CHI 00 [facility] allergy allergy 2021-09 No .15mL Common extract extract 2-22 Spirit 00:00: - CHI 00 [facility] allergy allergy 2021-09 No .15mL Common extract extract 2-22 Spirit 00:00: - CHI 00 [facility] allergy allergy 2021- No .15mL Common extract extract 2-22 Spirit 00:00: - CHI 00 [facility] allergy allergy 2021- No .15mL Common extract extract 2-22 Spirit 00:00: - CHI 00 [facility] allergy allergy 2021- No .15mL Common extract extract 2-22 Spirit 00:00: - CHI 00 [facility] allergy allergy 2021- No .15mL Common extract extract 2-22 Spirit 00:00: - CHI 00 [facility] allergy allergy 2021- No .15mL Common extract extract 2-22 Spirit 00:00: - CHI 00 [facility] allergy allergy 2021-09 No .15mL Common extract extract 2-22 Spirit 00:00: - [facility]I 00 [facility] allergy allergy 2021- No .15mL Common extract extract 2-22 Spirit 00:00: - [facility]I 00 [facility] allergy allergy 2021-09 No .15mL Common extract extract 2-22 Spirit 00:00: - CHI 00 [facility] allergy allergy 2021-09 No .15mL Common extract extract 2-22 Spirit 00:00: - CHI 00 [facility] allergy allergy 2021-09 No .5mL Common extract extract 2-15 Spirit 00:00: - CHI 00 [facility] allergy allergy 2021-09 No .5mL Common extract extract 2-15 Spirit 00:00: - CHI 00 [facility] allergy allergy 2021-09 No .5mL Common extract extract 2-15 Spirit 00:00: - CHI 00 [facility] allergy allergy 2021-09 No .5mL Common extract extract 2-15 Spirit 00:00: - CHI 00 [facility] allergy allergy 2021-09 No .5mL Common extract extract 2-15 Spirit 00:00: - CHI 00 [facility] allergy allergy 2021-09 No .5mL Common extract extract 2-15 Spirit 00:00: - CHI 00 [facility] allergy allergy 2021-09 No .5mL Common extract extract 2-15 Spirit 00:00: - CHI 00 [facility] allergy allergy 2021-09 No .5mL Common extract extract 2-15 Spirit 00:00: - CHI 00 [facility] allergy allergy 2021- No .5mL Common extract extract 2-15 Spirit 00:00: - CHI 00 [facility] allergy allergy 2021-09 No .5mL Common extract extract 2-15 [facility] 00:00: - CHI 00 [facility] allergy allergy 2021- No .5mL Common extract extract 2-15 Spirit 00:00: - CHI 00 [facility] allergy allergy 2021- No .5mL Common extract extract 2-15 Spirit 00:00: - CHI 00 [facility] allergy allergy 2021- No .5mL Common extract extract 2-08 Spirit 00:00: - CHI 00 [facility] allergy allergy 2021- No .5mL Common extract extract 2-08 [facility] 00:00: - CHI 00 [facility] allergy allergy 2021- No .5mL Common extract extract 2-08 [facility] 00:00: - CHI 00 [facility] allergy allergy 2021- No .5mL Common extract extract 2-08 [facility] 00:00: - [facility]I 00 [facility] allergy allergy 2021- No .5mL Common extract extract 2-08 [facility] 00:00: - CHI 00 [facility] allergy allergy 2021- No .5mL Common extract extract 2-08 [facility] 00:00: - CHI 00 [facility] allergy allergy 2021- No .5mL Common extract extract 2-08 [facility] 00:00: - CHI 00 [facility] allergy allergy 2021- No .5mL Common extract extract 2-08 [facility] 00:00: - [facility]I 00 [facility] allergy allergy 2021- No .5mL Common extract extract 2-08 [facility] 00:00: - [facility]I 00 [facility] allergy allergy 2021- No .5mL Common extract extract 2-08 [facility] 00:00: - [facility]I 00 [facility] allergy allergy 2021- No .5mL Common extract extract 2-08 [facility] 00:00: - [facility]I 00 [facility] allergy allergy 2021- No .5mL Common extract extract 2-08 [facility] 00:00: - [facility]I 00 [facility] allergy allergy 2021- No .5mL Common extract extract 2- Spirit 00:00: - [facility]I 00 [facility] allergy allergy 2021- No .5mL Common extract extract 2- Spirit 00:00: - [facility]I 00 [facility] allergy allergy 2021- No .5mL Common extract extract 2- Spirit 00:00: - CHI 00 [facility] allergy allergy 2021- No .5mL Common extract extract 2- Spirit 00:00: - CHI 00 [facility] allergy allergy 2021- No .5mL Common extract extract 2- Spirit 00:00: - [facility]I 00 [facility] allergy allergy 2021- No .5mL Common extract extract 2- Spirit 00:00: - CHI 00 [facility] allergy allergy 2021 No .5mL Common extract extract 2- Spirit 00:00: - [facility]I 00 [facility] allergy allergy 2021-09 No .5mL Common extract extract 2- Spirit 00:00: - [facility]I 00 [facility] allergy allergy 2021-09 No .5mL Common extract extract 2- Spirit 00:00: - [facility]I 00 [facility] allergy allergy 2021-09 No .5mL Common extract extract 2- Spirit 00:00: - CHI 00 [facility] allergy allergy 2021-09 No .5mL Common extract extract 2- Spirit 00:00: - [facility]I 00 [facility] allergy allergy 2021-09 No .5mL Common extract extract 2- Spirit 00:00: - CHI 00 [facility] allergy allergy 2021-09 No .5mL Common extract extract 2- Spirit 00:00: - CHI 00 [facility] allergy allergy 2021-09 No .5mL Common extract extract 1- Spirit 00:00: - [facility]I 00 [facility] allergy allergy 2021-09 No .5mL Common extract extract 1- Spirit 00:00: - [facility]I 00 [facility] allergy allergy 2021-09 No .5mL Common extract extract 1- Spirit 00:00: - [facility]I 00 [facility] allergy allergy 2021-09 No .5mL Common extract extract 1-22 Spirit 00:00: - [facility]I 00 [facility] allergy allergy 2021- No .5mL Common extract extract 1-22 [facility] 00:00: - [facility]I 00 [facility] allergy allergy 2021- No .5mL Common extract extract 1-22 [facility] 00:00: - [facility]I 00 [facility] allergy allergy 2021- No .5mL Common extract extract 1-22 [facility] 00:00: - [facility]I 00 [facility] allergy allergy 2021- No .5mL Common extract extract 1-22 [facility] 00:00: - [facility]I 00 [facility] allergy allergy 2021- No .5mL Common extract extract 1-22 [facility] 00:00: - [facility]I 00 [facility] allergy allergy 2021- No .5mL Common extract extract 1-22 [facility] 00:00: - [facility]I 00 [facility] allergy allergy 2021- No .5mL Common extract extract 1-22 [facility] 00:00: - [facility]I 00 [facility] allergy allergy 2021-09 No .5mL Common extract extract 1-22 [facility] 00:00: - [facility]I 00 [facility] allergy allergy 2021-09 No .5mL Common extract extract 1-22 [facility] 00:00: - [facility]I 00 [facility] allergy allergy 2021-09 No .5mL Common extract extract 1-22 [facility] 00:00: - [facility]I 00 [facility] allergy allergy 2021-09 No .5mL Common extract extract 1-22 [facility] 00:00: - [facility]I 00 [facility] allergy allergy 2021-09 No .5mL Common extract extract 1-22 [facility] 00:00: - [facility]I 00 [facility] allergy allergy 2021-09 No .5mL Common extract extract 1- [facility] 00:00: - [facility]I 00 [facility] allergy allergy 2021-09 No .5mL Common extract extract 1-22 [facility] 00:00: - [facility]I 00 [facility] allergy allergy 2021-09 No .5mL Common extract extract 1-22 [facility] 00:00: - [facility]I 00 [facility] allergy allergy 2021-09 No .5mL Common extract extract 1- [facility] 00:00: - [facility]I 00 [facility] allergy allergy 2021-09 No .5mL Common extract extract 1- [facility] 00:00: - [facility]I 00 [facility] allergy allergy 2021-09 No .5mL Common extract extract 1- [facility] 00:00: - [facility]I 00 [facility] allergy allergy 2021- No .5mL Common extract extract 1-22 [facility] 00:00: - [facility]I 00 [facility] allergy allergy 2021- No .5mL Common extract extract 1-22 [facility] 00:00: - [facility]I 00 [facility] allergy allergy 2021- No .5mL Common extract extract 1-22 [facility] 00:00: - [facility]I 00 [facility] allergy allergy 2021- No .5mL Common extract extract 1-22 [facility] 00:00: - [facility] 00 [facility] allergy allergy 2021- No .5mL Common extract extract 1-22 [facility] 00:00: - [facility]I 00 [facility] allergy allergy 2021- No .5mL Common extract extract 1-22 [facility] 00:00: - [facility]I 00 [facility] allergy allergy 2021-09 No .5mL Common extract extract 1-22 [facility] 00:00: - [facility]I 00 [facility] allergy allergy 2021-09 No .5mL Common extract extract 1-22 [facility] 00:00: - [facility]I 00 [facility] allergy allergy 2021-09 No .4mL Common extract extract 1-17 [facility] 00:00: - [facility]I 00 [facility] allergy allergy 2021-09 No .4mL Common extract extract 1-17 [facility] 00:00: - [facility]I 00 [facility] allergy allergy 2021-09 No .4mL Common extract extract 1-17 [facility] 00:00: - [facility]I 00 [facility] allergy allergy 2021-09 No .4mL Common extract extract 1-17 [facility] 00:00: - [facility]I 00 [facility] allergy allergy 2021-09 No .4mL Common extract extract 1-17 [facility] 00:00: - [facility] allergy allergy 2021-09 No .4mL Common extract extract 1-17 [facility] 00:00: - [facility] allergy allergy 2021-09 No .4mL Common extract extract 1-17 [facility] 00:00: - [facility]I 00 [facility] allergy allergy 2021-09 No .4mL Common extract extract 1-17 [facility] 00:00: - [facility]I 00 [facility] allergy allergy 2021-09 No .4mL Common extract extract 1-17 [facility] 00:00: - [facility]I [facility] allergy allergy 2021-09 No .4mL Common extract extract 1-17 [facility] 00:00: - [facility]I 00 [facility] allergy allergy 2021-09 No .4mL Common extract extract 1-17 [facility] 00:00: - [facility]I 00 [facility] allergy allergy 2021-09 No .4mL Common extract extract 1-17 [facility] 00:00: - [facility]I 00 [facility] allergy allergy 2021-09 No .4mL Common extract extract 1-17 [facility] 00:00: - [facility]I 00 [facility] allergy allergy 2021-09 No .4mL Common extract extract 1-17 [facility] 00:00: - [facility]I 00 [facility] allergy allergy 2021-09 No .4mL Common extract extract 1-17 [facility] 00:00: - [facility]I 00 [facility] allergy allergy 2021-09 No .4mL Common extract extract 1-10 [facility] 00:00: - [facility] 00 [facility] allergy allergy 2021-09 No .4mL Common extract extract 1-10 [facility] 00:00: - [facility] 00 [facility] allergy allergy 2021-09 No .4mL Common extract extract 1-10 [facility] 00:00: - [facility] allergy allergy 2021-09 No .4mL Common extract extract 1-10 [facility] 00:00: - [facility]I 00 [facility] allergy allergy 2021-09 No .4mL Common extract extract 1-10 [facility] 00:00: - [facility] allergy allergy 2021-09 No .4mL Common extract extract 1-10 [facility] 00:00: - [facility] allergy allergy 2021-09 No .4mL Common extract extract 1-10 [facility] 00:00: - [facility] allergy allergy 2021-09 No .4mL Common extract extract 1-10 [facility] 00:00: - [facility] allergy allergy 2021-09 No .4mL Common extract extract 1-10 [facility] 00:00: - [facility] allergy allergy 2021-09 No .4mL Common extract extract 1-10 [facility] 00:00: - [facility] allergy allergy 2021-09 No .4mL Common extract extract 1-10 [facility] 00:00: - [facility] allergy allergy 2021-09 No .4mL Common extract extract 1-10 [facility] 00:00: - [facility] allergy allergy 2021-09 No .4mL Common extract extract 1-10 [facility] 00:00: - [facility] 00 [facility] allergy allergy 2021-09 No .4mL Common extract extract 1-10 [facility] 00:00: - [facility] 00 [facility] allergy allergy 2021-09 No .4mL Common extract extract [facility] 00:00: - CHI 00 [facility] allergy allergy 2021-09 No .4mL Common extract extract [facility]10 [facility] 00:00: - CHI 00 [facility] allergy allergy 2021-09 No .4mL Common extract extract [facility]10 [facility] 00:00: - [facility]I 00 [facility] allergy allergy 2021-09 No .4mL Common extract extract [facility]10 [facility] 00:00: - [facility]I 00 [facility] allergy allergy 2021-09 No .4mL Common extract extract [facility]10 [facility] 00:00: - CHI 00 [facility] allergy allergy 2021-09 No .4mL Common extract extract [facility]10 [facility] 00:00: - [facility]I 00 [facility] allergy allergy 2021-09 No .4mL Common extract extract [facility]10 [facility] 00:00: - [facility]I 00 [facility] allergy allergy 2021-09 No .4mL Common extract extract [facility]10 [facility] 00:00: - [facility]I 00 [facility] allergy allergy 2021-09 No .4mL Common extract extract [facility]10 [facility] 00:00: - CHI 00 [facility] allergy allergy 2021-09 No .4mL Common extract extract [facility]10 [facility] 00:00: - CHI 00 [facility] allergy allergy 2021-09 No .4mL Common extract extract [facility]10 [facility] 00:00: - CHI [facility] allergy allergy 2021-09 No .4mL Common extract extract [facility]10 [facility] 00:00: - [facility]I 00 [facility] allergy allergy 2021-09 No .4mL Common extract extract [facility]10 [facility] 00:00: - CHI [facility] allergy allergy 2021-09 No .4mL Common extract extract [facility]10 [facility] 00:00: - [facility]I 00 [facility] allergy allergy 2021-09 No .4mL Common extract extract [facility]10 [facility] 00:00: - CHI 00 [facility] allergy allergy 2021-09 No .4mL Common extract extract [facility]10 [facility] 00:00: - [facility]I 00 [facility] allergy allergy 2021-09 No .4mL Common extract extract [facility]10 [facility] 00:00: - [facility]I 00 [facility] allergy allergy 2021-09 No .4mL Common extract extract [facility] 00:00: - [facility]I 00 [facility] allergy allergy 2021-09 No .35mL Common extract extract [facility]03 [facility] 00:00: - [facility]I 00 [facility] allergy allergy 2021-09 No .3mL Common extract extract 1[facility]03 [facility] 00:00: - [facility]I 00 [facility] allergy allergy 2021-09 No .35mL Common extract extract 1[facility]03 [facility] 00:00: - [facility]I 00 [facility] allergy allergy 2021-09 No .3mL Common extract extract 1[facility]03 [facility] 00:00: - [facility]I 00 [facility] allergy allergy 2021-09 No .35mL Common extract extract 1[facility]03 [facility] 00:00: - CHI 00 [facility] allergy allergy 2021-09 No .3mL Common extract extract [facility]03 [facility] 00:00: - [facility]I 00 [facility] allergy allergy 2021-09 No .35mL Common extract extract [facility]03 [facility] 00:00: - [facility]I 00 [facility] allergy allergy 2021-09 No .3mL Common extract extract 1[facility]03 [facility] 00:00: - [facility]I 00 [facility] allergy allergy 2021-09 No .35mL Common extract extract 1[facility]03 [facility] 00:00: - [facility]I 00 [facility] allergy allergy 2021-09 No .3mL Common extract extract 1[facility]03 [facility] 00:00: - CHI [facility] allergy allergy 2021-09 No .35mL Common extract extract [facility]03 [facility] 00:00: - [facility]I 00 [facility] allergy allergy 2021-09 No .3mL Common extract extract 1[facility]03 [facility] 00:00: - [facility]I 00 [facility] allergy allergy 2021-09 No .35mL Common extract extract [facility]03 [facility] 00:00: - [facility]I 00 [facility] allergy allergy 2021-09 No .3mL Common extract extract 1[facility]03 [facility] 00:00: - CHI [facility] allergy allergy 2021-09 No .35mL Common extract extract 1[facility]03 [facility] 00:00: - [facility]I 00 [facility] allergy allergy 2021-09 No .3mL Common extract extract 1[facility]03 [facility] 00:00: - [facility]I 00 [facility] allergy allergy 2021-09 No .35mL Common extract extract [facility]03 [facility] 00:00: - [facility]I 00 [facility] allergy allergy 2021-09 No .3mL Common extract extract 1[facility]03 [facility] 00:00: - [facility]I 00 [facility] allergy allergy 2021-09 No .35mL Common extract extract [facility]03 [facility] 00:00: - [facility]I 00 [facility] allergy allergy 2021- No .3mL Common extract extract 1[facility]03 [facility] 00:00: - [facility]I 00 [facility] allergy allergy 2021-09 No .35mL Common extract extract 1[facility]03 [facility] 00:00: - [facility]I 00 [facility] allergy allergy 2021-09 No .3mL Common extract extract 1[facility]03 [facility] 00:00: - [facility]I 00 [facility] allergy allergy 2021-09 No .35mL Common extract extract 1[facility]03 [facility] 00:00: - [facility]I 00 [facility] allergy allergy 2021-09 No .3mL Common extract extract 1[facility]03 [facility] 00:00: - [facility]I 00 [facility] allergy allergy 2021-09 No .35mL Common extract extract 1[facility]03 [facility] 00:00: - [facility]I 00 [facility] allergy allergy 2021-09 No .3mL Common extract extract 1[facility]03 [facility] 00:00: - CHI [facility] allergy allergy 2021-09 No .3mL Common extract extract 1[facility]03 [facility] 00:00: - CHI [facility] allergy allergy 2021-09 No .35mL Common extract extract 1[facility]03 [facility] 00:00: - CHI [facility] allergy allergy 2021-09 No .3mL Common extract extract 1[facility]03 [facility] 00:00: - CHI [facility] allergy allergy 2021-09 No .35mL Common extract extract 1[facility]03 [facility] 00:00: - CHI [facility] allergy allergy 2021-09 No .3mL Common extract extract 1[facility]03 [facility] 00:00: - CHI [facility] allergy allergy 2021-09 No .35mL Common extract extract 1[facility]03 [facility] 00:00: - CHI 00 [facility] allergy allergy 2021-09 No .3mL Common extract extract 1[facility]03 [facility] 00:00: - [facility]I 00 [facility] allergy allergy 2021-09 No .35mL Common extract extract 1[facility]03 [facility] 00:00: - [facility]I 00 [facility] allergy allergy 2021-09 No .3mL Common extract extract 0-27 [facility] 00:00: - [facility]I 00 [facility] allergy allergy 2021-09 No .3mL Common extract extract 0[facility]27 [facility] 00:00: - [facility]I 00 [facility] allergy allergy 2021-09 No .3mL Common extract extract 0[facility]27 [facility] 00:00: - [facility]I 00 [facility] allergy allergy 2021-09 No .3mL Common extract extract 0[facility]27 [facility] 00:00: - [facility]I 00 [facility] allergy allergy 2021- No .3mL Common extract extract 0[facility]27 [facility] 00:00: - [facility]I 00 [facility] allergy allergy 2021- No .3mL Common extract extract 0[facility]27 [facility] 00:00: - [facility]I 00 [facility] allergy allergy 2021- No .3mL Common extract extract 0-27 [facility] 00:00: - [facility]I 00 [facility] allergy allergy 2021- No .3mL Common extract extract 0[facility]27 [facility] 00:00: - [facility]I 00 [facility] allergy allergy 2021- No .3mL Common extract extract 0[facility]27 [facility] 00:00: - [facility]I 00 [facility] allergy allergy 2021- No .3mL Common extract extract 0[facility]27 [facility] 00:00: - [facility]I 00 [facility] allergy allergy 2021- No .3mL Common extract extract 0[facility]27 [facility] 00:00: - [facility]I 00 [facility] allergy allergy 2021- No .3mL Common extract extract 0[facility]27 [facility] 00:00: - [facility]I 00 [facility] allergy allergy 2021- No .3mL Common extract extract 0[facility]27 [facility] 00:00: - [facility]I 00 [facility] allergy allergy 2021- No .3mL Common extract extract 0[facility]27 [facility] 00:00: - [facility]I 00 [facility] allergy allergy 2021- No .3mL Common extract extract 0[facility]27 [facility] 00:00: - [facility]I 00 [facility] allergy allergy 2021- No .3mL Common extract extract 0[facility]27 [facility] 00:00: - [facility]I 00 [facility] allergy allergy 2021- No .3mL Common extract extract 0[facility]27 [facility] 00:00: - CHI 00 [facility] allergy allergy 2021- No .3mL Common extract extract 0[facility]27 [facility] 00:00: - [facility]I 00 [facility] allergy allergy 2021- No .3mL Common extract extract 0[facility]27 [facility] 00:00: - [facility]I 00 [facility] allergy allergy 2021- No .3mL Common extract extract 0[facility]27 [facility] 00:00: - [facility]I 00 [facility] allergy allergy 2021-09 No .3mL Common extract extract 0[facility]27 [facility] 00:00: - [facility]I 00 [facility] allergy allergy 2021- No .3mL Common extract extract 0[facility]27 [facility] 00:00: - [facility]I 00 [facility] allergy allergy 2021- No .3mL Common extract extract 0[facility]27 [facility] 00:00: - [facility]I 00 [facility] allergy allergy 2021- No .3mL Common extract extract 0[facility]27 [facility] 00:00: - [facility]I 00 [facility] allergy allergy 2021- No .3mL Common extract extract 0[facility]27 [facility] 00:00: - [facility]I 00 [facility] allergy allergy 2021- No .3mL Common extract extract 0[facility]27 [facility] 00:00: - [facility]I 00 [facility] allergy allergy 2021- No .3mL Common extract extract 0[facility]27 [facility] 00:00: - [facility]I 00 [facility] allergy allergy 2021- No .3mL Common extract extract 0[facility]27 [facility] 00:00: - [facility]I 00 [facility] allergy allergy 2021- No .3mL Common extract extract 0[facility]27 [facility] 00:00: - [facility]I 00 [facility] allergy allergy 2021- No .3mL Common extract extract 0[facility]27 [facility] 00:00: - [facility]I 00 [facility] allergy allergy 2021- No .3mL Common extract extract 0[facility]27 [facility] 00:00: - [facility]I 00 [facility] allergy allergy 2021- No .3mL Common extract extract 0[facility]27 [facility] 00:00: - [facility]I 00 [facility] allergy allergy 2021- No .3mL Common extract extract 0[facility]27 [facility] 00:00: - [facility]I 00 [facility] allergy allergy 2021- No .3mL Common extract extract 0[facility]27 [facility] 00:00: - [facility]I 00 [facility] allergy allergy 2021- No .3mL Common extract extract 0[facility]27 [facility] 00:00: - [facility]I 00 [facility] allergy allergy 2021- No .3mL Common extract extract 0[facility]27 [facility] 00:00: - CHI 00 [facility] Rosuvastati Rosuvastati 2021- No 1{table QD Rosuvastat n Calcium 5 n Calcium 5 0-20 t} in Calcium MG MG 00:00: 5 MG 00 allergy allergy 2021-09 No .25mL Common extract extract 0[facility]20 [facility] 00:00: - [facility] 00 [facility] allergy allergy 2021-09 No .25mL Common extract extract 0[facility]20 [facility] 00:00: - [facility]I 00 [facility]ast[facility] Rosuvastati 2021-09 No 1{table QD Rosuvastat n Calcium 5 n Calcium 5 0-20 t} in Calcium MG MG 00:00: 5 MG 00 allergy allergy 2021-09 No .25mL Common extract extract 0[facility]20 [facility] 00:00: - [facility] 00 [facility] allergy allergy 2021-09 No .25mL Common extract extract 0[facility]20 [facility] 00:00: - [facility]I 00 [facility] Rosuvastati 2021-09 No 1{table QD Rosuvastat n Calcium 5 n Calcium 5 0-20 t} in Calcium MG MG 00:00: 5 MG 00 allergy allergy 2021-09 No .25mL Common extract extract 0[facility]20 [facility] 00:00: - [facility] 00 [facility] allergy allergy 2021-09 No .25mL Common extract extract 0[facility]20 [facility] 00:00: - [facility]I 00 [facility] Rosuvastati 2021-09 No 1{table QD Rosuvastat n Calcium 5 n Calcium 5 0-20 t} in Calcium MG MG 00:00: 5 MG 00 allergy allergy 2021-09 No .25mL Common extract extract 0[facility]20 [facility] 00:00: - [facility] 00 [facility] allergy allergy 2021-09 No .25mL Common extract extract 0[facility]20 [facility] 00:00: - [facility]I 00 [facility]astati Rosuvastati 2021-09 No 1{table QD Rosuvastat n Calcium 5 n Calcium 5 0-20 t} in Calcium MG MG 00:00: 5 MG 00 allergy allergy 2021-09 No .25mL Common extract extract 0[facility]20 [facility] 00:00: - [facility]I 00 [facility] allergy allergy 2021-09 No .25mL Common extract extract 0[facility]20 [facility] 00:00: - [facility]I 00 [facility]ati Rosuvastati 2021-09 No 1{table QD Rosuvastat n Calcium 5 n Calcium 5 0-20 t} in Calcium MG MG 00:00: 5 MG 00 allergy allergy 2021-09 No .25mL Common extract extract 0[facility]20 [facility] 00:00: - [facility]I 00 [facility] allergy allergy 2021-09 No .25mL Common extract extract 0[facility]20 [facility] 00:00: - [facility]I 00 [facility] Ros[facility]ati Rosuvastati 2021-09 No 1{table QD Rosuvastat n Calcium 5 n Calcium 5 0-20 t} in Calcium MG MG 00:00: 5 MG 00 allergy allergy 2021-09 No .25mL Common extract extract 0[facility]20 [facility] 00:00: - [facility]I 00 [facility] allergy allergy 2021-09 No .25mL Common extract extract 0[facility]20 [facility] 00:00: - [facility]I 00 [facility]ati Rosuvastati 2021-09 No 1{table QD Rosuvastat n Calcium 5 n Calcium 5 0-20 t} in Calcium MG MG 00:00: 5 MG 00 allergy allergy 2021-09 No .25mL Common extract extract 0[facility]20 [facility] 00:00: - [facility]I 00 [facility] allergy allergy 2021-09 No .25mL Common extract extract 0[facility]20 [facility] 00:00: - [facility]I 00 [facility] Rosuvastati Rosuvastati 2021-09 No 1{table QD Rosuvastat n Calcium 5 n Calcium 5 0-20 t} in Calcium MG MG 00:00: 5 MG 00 allergy allergy 2021-09 No .25mL Common extract extract 0[facility]20 [facility] 00:00: - [facility]I 00 [facility] allergy allergy 2021-09 No .25mL Common extract extract 0[facility]20 [facility] 00:00: - [facility]I 00 [facility] Rosuvastati Rosuvastati 2021-09 No 1{table QD Rosuvastat n Calcium 5 n Calcium 5 0-20 t} in Calcium MG MG 00:00: 5 MG 00 allergy allergy 2021-09 No .25mL Common extract extract 0[facility]20 [facility] 00:00: - [facility]I 00 [facility] allergy allergy 2021-09 No .25mL Common extract extract 0[facility]20 [facility] 00:00: - [facility]I 00 [facility] Ros[facility]astati Rosuvastati 2021-09 No 1{table QD Rosuvastat n Calcium 5 n Calcium 5 0-20 t} in Calcium MG MG 00:00: 5 MG 00 allergy allergy 2021-09 No .25mL Common extract extract 0[facility]20 [facility] 00:00: - [facility]I 00 [facility] allergy allergy 2021-09 No .25mL Common extract extract 0[facility]20 [facility] 00:00: - [facility]I 00 [facility] Rosuvastati Rosuvastati 2021-09 No 1{table QD Rosuvastat n Calcium 5 n Calcium 5 0-20 t} in Calcium MG MG 00:00: 5 MG 00 allergy allergy 2021-09 No .25mL Common extract extract 0[facility]20 [facility] 00:00: - [facility]I 00 [facility] allergy allergy 2021-09 No .25mL Common extract extract 0[facility]20 [facility] 00:00: - [facility]I 00 [facility] Ros[facility]astati Rosuvastati 2021-09 No 1{table QD Rosuvastat n Calcium 5 n Calcium 5 0-20 t} in Calcium MG MG 00:00: 5 MG 00 allergy allergy 2021-09 No .25mL Common extract extract 0[facility]20 [facility] 00:00: - [facility] 00 [facility] allergy allergy 2021-09 No .25mL Common extract extract 0[facility]20 [facility] 00:00: - [facility]I 00 [facility] Ros[facility]astati Rosuvastati 2021-09 No 1{table QD Rosuvastat n Calcium 5 n Calcium 5 0-20 t} in Calcium MG MG 00:00: 5 MG 00 allergy allergy 2021-09 No .25mL Common extract extract 0[facility]20 [facility] 00:00: - [facility] 00 [facility] allergy allergy 2021-09 No .25mL Common extract extract 0[facility]20 [facility] 00:00: - [facility]I 00 [facility] Rosuvastati 2021-09 No 1{table QD Rosuvastat n Calcium 5 n Calcium 5 0-20 t} in Calcium MG MG 00:00: 5 MG 00 allergy allergy 2021-09 No .25mL Common extract extract 0[facility]20 [facility] 00:00: - [facility] 00 [facility] allergy allergy 2021-09 No .25mL Common extract extract 0[facility]20 [facility] 00:00: - [facility]I 00 [facility] Rosuvastati 2021-09 No 1{table QD Rosuvastat n Calcium 5 n Calcium 5 0-20 t} in Calcium MG MG 00:00: 5 MG 00 allergy allergy 2021-09 No .25mL Common extract extract 0[facility]20 [facility] 00:00: - [facility]I 00 [facility] allergy allergy 2021-09 No .25mL Common extract extract 0-20 [facility] 00:00: - [facility]I 00 [facility] Rosuvastati 2021-09 No 1{table QD Rosuvastat n Calcium 5 n Calcium 5 0-20 t} in Calcium MG MG 00:00: 5 MG 00 allergy allergy 2021-09 No .25mL Common extract extract 0[facility]20 [facility] 00:00: - [facility] 00 [facility] allergy allergy 2021-09 No .25mL Common extract extract 0[facility]20 [facility] 00:00: - [facility]I 00 [facility] Rosuvastati 2021-09 No 1{table QD Rosuvastat n Calcium 5 n Calcium 5 0-20 t} in Calcium MG MG 00:00: 5 MG 00 allergy allergy 2021-09 No .25mL Common extract extract 0[facility]20 [facility] 00:00: - [facility] 00 [facility] allergy allergy 2021-09 No .25mL Common extract extract 0[facility]20 [facility] 00:00: - [facility]I 00 [facility] Rosuvastati 2021-09 No 1{table QD Rosuvastat n Calcium 5 n Calcium 5 0-20 t} in Calcium MG MG 00:00: 5 MG 00 allergy allergy 2021-09 No .25mL Common extract extract 0[facility]20 [facility] 00:00: - [facility]I 00 [facility] allergy allergy 2021-09 No .25mL Common extract extract 0[facility]20 [facility] 00:00: - CHI 00 [facility] Rosuvastati 2021-09 No 1{table QD Rosuvastat n Calcium 5 n Calcium 5 0-20 t} in Calcium MG MG 00:00: 5 MG 00 allergy allergy 2021-09 No .25mL Common extract extract 0[facility]20 [facility] 00:00: - [facility]I 00 [facility] allergy allergy 2021-09 No .25mL Common extract extract 0[facility]20 [facility] 00:00: - CHI 00 [facility] allergy allergy 2021-09 No .2mL Common extract extract 0-13 [facility] 00:00: - [facility]I 00 [facility] allergy allergy 2021- No .2mL Common extract extract 0-13 [facility] 00:00: - CHI 00 [facility] allergy allergy 2021- No .2mL Common extract extract 0-13 [facility] 00:00: - CHI 00 [facility] allergy allergy 2021-09 No .2mL Common extract extract 0-13 [facility] 00:00: - CHI 00 [facility] allergy allergy 2021- No .2mL Common extract extract 0-13 [facility] 00:00: - CHI 00 [facility] allergy allergy 2021-09 No .2mL Common extract extract 0[facility]13 [facility] 00:00: - CHI 00 [facility] allergy allergy 2021-09 No .2mL Common extract extract 0-13 [facility] 00:00: - CHI 00 [facility] allergy allergy 2021- No .2mL Common extract extract 0-13 [facility] 00:00: - CHI [facility] allergy allergy 2021-09 No .2mL Common extract extract 0-13 [facility] 00:00: - CHI [facility] allergy allergy 2021-09 No .2mL Common extract extract 0-13 [facility] 00:00: - CHI [facility] allergy allergy 2021-09 No .2mL Common extract extract 0-13 [facility] 00:00: - CHI 00 [facility] allergy allergy 2021- No .2mL Common extract extract 0[facility]13 [facility] 00:00: - CHI [facility] allergy allergy 2021- No .2mL Common extract extract 0-13 [facility] 00:00: - CHI 00 [facility] allergy allergy 2021- No .2mL Common extract extract 0-13 [facility] 00:00: - CHI 00 [facility] allergy allergy 2021- No .2mL Common extract extract 0[facility]13 [facility] 00:00: - CHI 00 [facility] allergy allergy 2021- No .2mL Common extract extract 0-13 [facility] 00:00: - CHI 00 [facility] allergy allergy 2021- No .2mL Common extract extract 0-13 [facility] 00:00: - CHI 00 [facility] allergy allergy 2021- No .2mL Common extract extract 0-13 [facility] 00:00: - CHI [facility] allergy allergy 2021-09 No .2mL Common extract extract 0-13 [facility] 00:00: - CHI 00 [facility] allergy allergy 2021-09 No .2mL Common extract extract 0-13 [facility] 00:00: - CHI 00 [facility] allergy allergy 2021-09 No .2mL Common extract extract 0-13 [facility] 00:00: - CHI 00 [facility] allergy allergy 2021-09 No .2mL Common extract extract 0-13 [facility] 00:00: - CHI 00 [facility] allergy allergy 2021-09 No .2mL Common extract extract 0-13 [facility] 00:00: - CHI 00 [facility] allergy allergy 2021-09 No .2mL Common extract extract 0-13 [facility] 00:00: - CHI 00 [facility] allergy allergy 2021-09 No .2mL Common extract extract 0-13 [facility] 00:00: - CHI [facility] allergy allergy 2021-09 No .2mL Common extract extract 0-13 [facility] 00:00: - CHI [facility] allergy allergy 2021-09 No .2mL Common extract extract 0-13 [facility] 00:00: - CHI 00 [facility] allergy allergy 2021-09 No .2mL Common extract extract 0-13 [facility] 00:00: - CHI 00 [facility] allergy allergy 2021-09 No .2mL Common extract extract 0-13 [facility] 00:00: - CHI 00 [facility] allergy allergy 2021-09 No .2mL Common extract extract 0-13 [facility] 00:00: - CHI [facility] allergy allergy 2021-09 No .2mL Common extract extract 0-13 [facility] 00:00: - CHI 00 [facility] allergy allergy 2021-09 No .2mL Common extract extract 0-13 [facility] 00:00: - CHI 00 [facility] allergy allergy 2021-09 No .2mL Common extract extract 0-13 [facility] 00:00: - CHI 00 [facility] allergy allergy 2021-09 No .2mL Common extract extract 0-13 [facility] 00:00: - CHI 00 [facility] allergy allergy 2021- No .2mL Common extract extract 0-13 [facility] 00:00: - CHI 00 [facility] allergy allergy 2021- No .2mL Common extract extract 0-13 [facility] 00:00: - CHI 00 [facility] allergy allergy 2021- No .2mL Common extract extract 0-13 [facility] 00:00: - CHI 00 [facility] allergy allergy 2021-09 No .2mL Common extract extract 0-13 [facility] 00:00: - CHI 00 [facility] allergy allergy 2021-09 No .2mL Common extract extract 0-13 [facility] 00:00: - CHI 00 [facility] allergy allergy 2021-09 No .2mL Common extract extract 0[facility]13 [facility] 00:00: - CHI 00 [facility] allergy allergy 2021-09 No .2mL Common extract extract 0-13 [facility] 00:00: - CHI 00 [facility] allergy allergy 2021-09 No .2mL Common extract extract 0[facility]13 [facility] 00:00: - CHI 00 [facility] allergy allergy 2021-09 No .15mL Common extract extract 0-06 [facility] 00:00: - CHI 00 [facility] allergy allergy 2021- No .15mL Common extract extract 0-06 [facility] 00:00: - CHI 00 [facility] allergy allergy 2021-09 No .15mL Common extract extract 0-06 [facility] 00:00: - CHI 00 [facility] allergy allergy 2021- No .15mL Common extract extract 0-06 [facility] 00:00: - CHI 00 [facility] allergy allergy 2021- No .15mL Common extract extract 0-06 [facility] 00:00: - CHI 00 [facility] allergy allergy 2021- No .15mL Common extract extract 0-06 [facility] 00:00: - CHI 00 [facility] allergy allergy 2021- No .15mL Common extract extract 0-06 [facility] 00:00: - CHI 00 [facility] allergy allergy 2021- No .15mL Common extract extract 0-06 [facility] 00:00: - CHI 00 [facility] allergy allergy 2021- No .15mL Common extract extract 0-06 [facility] 00:00: - CHI 00 [facility] allergy allergy 2021- No .15mL Common extract extract 0-06 [facility] 00:00: - CHI 00 [facility] allergy allergy 2021- No .15mL Common extract extract 0-06 [facility] 00:00: - CHI 00 [facility] allergy allergy 2021- No .15mL Common extract extract 0-06 [facility] 00:00: - CHI 00 [facility] allergy allergy 2021- No .15mL Common extract extract 0-06 [facility] 00:00: - CHI 00 [facility] allergy allergy 2021- No .15mL Common extract extract 0-06 [facility] 00:00: - CHI 00 [facility] allergy allergy 2021- No .15mL Common extract extract 0-06 [facility] 00:00: - CHI 00 [facility] allergy allergy 2021- No .15mL Common extract extract 0-06 [facility] 00:00: - CHI 00 [facility] allergy allergy 2021- No .15mL Common extract extract 0-06 [facility] 00:00: - CHI 00 [facility] allergy allergy 2021- No .15mL Common extract extract 0-06 [facility] 00:00: - CHI 00 [facility] allergy allergy 2021- No .15mL Common extract extract 0-06 [facility] 00:00: - CHI 00 [facility] allergy allergy 2021- No .15mL Common extract extract 0-06 [facility] 00:00: - CHI 00 [facility] allergy allergy 2021- No .15mL Common extract extract 0-06 [facility] 00:00: - CHI 00 [facility] allergy allergy 2021- No .15mL Common extract extract 0-06 [facility] 00:00: - CHI 00 [facility] allergy allergy 2021- No .15mL Common extract extract 0-06 [facility] 00:00: - CHI 00 [facility] allergy allergy 2021- No .15mL Common extract extract 0-06 [facility] 00:00: - CHI 00 [facility] allergy allergy 2021- No .15mL Common extract extract 0-06 [facility] 00:00: - CHI 00 [facility] allergy allergy 2021- No .15mL Common extract extract 0-06 [facility] 00:00: - CHI 00 [facility] allergy allergy 2021- No .15mL Common extract extract 0-06 [facility] 00:00: - CHI 00 [facility] allergy allergy 2021- No .15mL Common extract extract 0-06 [facility] 00:00: - CHI 00 [facility] allergy allergy 2021- No .15mL Common extract extract 0-06 [facility] 00:00: - CHI 00 [facility] allergy allergy 2021- No .15mL Common extract extract 0-06 [facility] 00:00: - CHI 00 [facility] allergy allergy 2021- No .15mL Common extract extract 0-06 [facility] 00:00: - CHI 00 [facility] allergy allergy 2021- No .15mL Common extract extract 0-06 [facility] 00:00: - CHI 00 [facility] allergy allergy 2021- No .15mL Common extract extract 0-06 [facility] 00:00: - CHI 00 [facility] allergy allergy 2021- No .15mL Common extract extract 0-06 [facility] 00:00: - CHI 00 [facility] allergy allergy 2021- No .15mL Common extract extract 0-06 [facility] 00:00: - CHI 00 [facility] allergy allergy 2021-09 No .15mL Common extract extract 0-06 [facility] 00:00: - CHI 00 [facility] allergy allergy 2021- No .15mL Common extract extract 0-06 [facility] 00:00: - CHI 00 [facility] allergy allergy 2021- No .15mL Common extract extract 0-06 [facility] 00:00: - CHI 00 [facility] allergy allergy 2021-09 No .15mL Common extract extract 0-06 [facility] 00:00: - CHI 00 [facility] allergy allergy 2021- No .15mL Common extract extract 0-06 [facility] 00:00: - CHI 00 [facility] allergy allergy 2021- No .15mL Common extract extract 0-06 [facility] 00:00: - CHI 00 [facility] allergy allergy 2021- No .15mL Common extract extract 0-06 [facility] 00:00: - CHI 00 [facility] allergy allergy 2021- No .15mL Common extract extract 0-06 [facility] 00:00: - CHI 00 [facility] allergy allergy 2021- No .15mL Common extract extract 0-06 [facility] 00:00: - CHI 00 [facility] allergy allergy 2021- No .15mL Common extract extract 0-06 [facility] 00:00: - CHI 00 [facility] allergy allergy 2022-1 No .15mL Common extract extract 006 [facility] 00:00: - CHI [facility] allergy allergy 2-0 No .1mL Common extract extract 06-09 [facility] 00:00: - CHI 00 [facility] allergy allergy 2-0 No .1mL Common extract extract 06-09 [facility] 00:00: - CHI 00 [facility] allergy allergy 2-0 No .1mL Common extract extract 06-09 [facility] 00:00: - CHI 00 [facility] allergy allergy 2-0 No .1mL Common extract extract 06-09 [facility] 00:00: - CHI 00 [facility] allergy allergy 2-0 No .1mL Common extract extract 06-09 [facility] 00:00: - CHI 00 [facility] allergy allergy 2-0 No .1mL Common extract extract 06-09 [facility] 00:00: - CHI [facility] allergy allergy 2-0 No .1mL Common extract extract 06-09 [facility] 00:00: - CHI [facility] allergy allergy 2-0 No .1mL Common extract extract 06-09 [facility] 00:00: - CHI 00 [facility] allergy allergy 2-0 No .1mL Common extract extract 06-09 [facility] 00:00: - CHI 00 [facility] allergy allergy 2-0 No .1mL Common extract extract 06-09 [facility] 00:00: - CHI 00 [facility] allergy allergy 2-0 No .1mL Common extract extract 06-09 [facility] 00:00: - CHI [facility] allergy allergy 2-0 No .1mL Common extract extract 06-09 [facility] 00:00: - CHI 00 [facility] allergy allergy 2022-0 No .1mL Common extract extract 06-09 [facility] 00:00: - CHI 00 [facility] allergy allergy 2-0 No .1mL Common extract extract 06-09 [facility] 00:00: - CHI 00 [facility] allergy allergy 2-0 No .1mL Common extract extract 06-09 [facility] 00:00: - CHI 00 [facility] allergy allergy 2022-0 No .1mL Common extract extract 06-09 [facility] 00:00: - CHI 00 [facility] allergy allergy 2022-0 No .1mL Common extract extract 06-09 [facility] 00:00: - CHI 00 [facility] allergy allergy 2022-0 No .1mL Common extract extract 06-09 [facility] 00:00: - CHI 00 [facility] allergy allergy 2022-0 No .1mL Common extract extract 06-09 [facility] 00:00: - CHI 00 [facility] allergy allergy 2022-0 No .1mL Common extract extract 06-09 [facility] 00:00: - CHI 00 [facility] allergy allergy 2022-0 No .1mL Common extract extract 06-09 [facility] 00:00: - CHI 00 [facility] allergy allergy 2-0 No .1mL Common extract extract 06-09 [facility] 00:00: - CHI 00 [facility] allergy allergy 2-0 No .1mL Common extract extract 06-09 [facility] 00:00: - CHI 00 [facility] allergy allergy 2022-0 No .1mL Common extract extract 06-09 [facility] 00:00: - CHI [facility] allergy allergy 2-0 No .1mL Common extract extract 06-09 [facility] 00:00: - CHI 00 [facility] allergy allergy 2-0 No .1mL Common extract extract 06-09 [facility] 00:00: - CHI [facility] allergy allergy 2-0 No .1mL Common extract extract 06-09 [facility] 00:00: - CHI 00 [facility] allergy allergy 2022-0 No .1mL Common extract extract 06-09 [facility] 00:00: - CHI [facility] allergy allergy 2022-0 No .1mL Common extract extract 06-09 [facility] 00:00: - CHI 00 [facility] allergy allergy 2022-0 No .1mL Common extract extract 06-09 [facility] 00:00: - CHI 00 [facility] allergy allergy 2022-0 No .1mL Common extract extract 06-09 [facility] 00:00: - CHI 00 [facility] allergy allergy 2022-0 No .1mL Common extract extract 06-09 [facility] 00:00: - CHI 00 [facility] allergy allergy 2022-0 No .1mL Common extract extract 06-09 [facility] 00:00: - CHI 00 [facility] allergy allergy 2022-0 No .1mL Common extract extract 06-09 [facility] 00:00: - CHI [facility] allergy allergy 2022-0 No .1mL Common extract extract 06-09 [facility] 00:00: - CHI [facility] allergy allergy 2022-0 No .1mL Common extract extract 06-09 [facility] 00:00: - CHI 00 [facility] allergy allergy 2022-0 No .1mL Common extract extract 06-09 [facility] 00:00: - CHI 00 [facility] allergy allergy 2022-0 No .1mL Common extract extract 06-09 [facility] 00:00: - CHI 00 [facility] allergy allergy 2022-0 No .1mL Common extract extract 06-09 [facility] 00:00: - CHI [facility] allergy allergy 2-0 No .1mL Common extract extract 06-09 [facility] 00:00: - CHI [facility] allergy allergy 2022-0 No .1mL Common extract extract 06-09 [facility] 00:00: - CHI [facility] allergy allergy 2-0 No .1mL Common extract extract 06-09 [facility] 00:00: - CHI [facility] allergy allergy 2022-0 No .1mL Common extract extract 06-09 [facility] 00:00: - CHI 00 [facility] allergy allergy 2022-0 No .1mL Common extract extract 06-09 [facility] 00:00: - CHI [facility] allergy allergy 2022-0 No .1mL Common extract extract 06-09 [facility] 00:00: - CHI [facility] allergy allergy 2022-0 No .1mL Common extract extract 06-09 [facility] 00:00: - CHI [facility] allergy allergy 2022-0 No .1mL Common extract extract 06-09 [facility] 00:00: - CHI 00 [facility] allergy allergy 2022-0 No .1mL Common extract extract 06-09 [facility] 00:00: - CHI 00 [facility] allergy allergy 2022-0 No .1mL Common extract extract 06-09 [facility] 00:00: - CHI 00 [facility] allergy allergy 2022-0 No .1mL Common extract extract 06-09 [facility] 00:00: - CHI [facility] allergy allergy 2022-0 No .1mL Common extract extract 05-19 [facility] 00:00: - CHI 00 [facility] allergy allergy 2022-0 No .1mL Common extract extract 05-19 [facility] 00:00: - CHI 00 [facility] allergy allergy 2-0 No .1mL Common extract extract 05-19 [facility] 00:00: - CHI 00 [facility] allergy allergy 2-0 No .1mL Common extract extract 05-19 [facility] 00:00: - CHI 00 [facility] allergy allergy 2-0 No .1mL Common extract extract 05-19 [facility] 00:00: - CHI 00 [facility] allergy allergy 2-0 No .1mL Common extract extract 05-19 [facility] 00:00: - CHI 00 [facility] allergy allergy 2-0 No .1mL Common extract extract 05-19 [facility] 00:00: - CHI 00 [facility] allergy allergy 2-0 No .1mL Common extract extract 05-19 [facility] 00:00: - CHI 00 [facility] allergy allergy 2-0 No .1mL Common extract extract 05-19 [facility] 00:00: - CHI 00 [facility] allergy allergy 2-0 No .1mL Common extract extract 05-19 [facility] 00:00: - CHI 00 [facility] allergy allergy 2-0 No .1mL Common extract extract 05-19 [facility] 00:00: - CHI 00 [facility] allergy allergy 2-0 No .1mL Common extract extract 05-19 [facility] 00:00: - CHI 00 [facility] allergy allergy 2-0 No .1mL Common extract extract 05-19 [facility] 00:00: - CHI 00 [facility] allergy allergy 2022-0 No .1mL Common extract extract 05-19 [facility] 00:00: - CHI 00 [facility] allergy allergy 2022-0 No .1mL Common extract extract 05-19 [facility] 00:00: - CHI 00 [facility] allergy allergy 2022-0 No .1mL Common extract extract 05-19 [facility] 00:00: - CHI 00 [facility] allergy allergy 2022-0 No .1mL Common extract extract 05-19 [facility] 00:00: - CHI 00 [facility] allergy allergy 2022-0 No .1mL Common extract extract 05-19 [facility] 00:00: - CHI 00 [facility] allergy allergy 2022-0 No .1mL Common extract extract 05-19 [facility] 00:00: - CHI 00 [facility] allergy allergy 2-0 No .1mL Common extract extract 05-19 [facility] 00:00: - CHI 00 [facility] allergy allergy 2-0 No .1mL Common extract extract 05-19 [facility] 00:00: - CHI 00 [facility] allergy allergy 2-0 No .1mL Common extract extract 05-19 [facility] 00:00: - CHI 00 [facility] allergy allergy 2-0 No .1mL Common extract extract 05-19 [facility] 00:00: - CHI 00 [facility] allergy allergy 2-0 No .1mL Common extract extract 05-19 [facility] 00:00: - CHI 00 [facility] allergy allergy 2-0 No .1mL Common extract extract 05-19 [facility] 00:00: - CHI 00 [facility] allergy allergy 2-0 No .1mL Common extract extract 05-19 [facility] 00:00: - CHI 00 [facility] allergy allergy 2-0 No .1mL Common extract extract 05-19 [facility] 00:00: - CHI 00 [facility] allergy allergy 2-0 No .1mL Common extract extract 05-19 [facility] 00:00: - CHI 00 [facility] allergy allergy 2-0 No .1mL Common extract extract 05-19 [facility] 00:00: - CHI 00 [facility] allergy allergy 2-0 No .1mL Common extract extract 05-19 [facility] 00:00: - CHI 00 [facility] allergy allergy 2022-0 No .1mL Common extract extract 05-19 [facility] 00:00: - CHI 00 [facility] allergy allergy 2022-0 No .1mL Common extract extract 05-19 [facility] 00:00: - CHI 00 [facility] allergy allergy 2022-0 No .1mL Common extract extract 05-19 [facility] 00:00: - CHI 00 [facility] allergy allergy 2022-0 No .1mL Common extract extract 05-19 [facility] 00:00: - CHI 00 [facility] allergy allergy 2022-0 No .1mL Common extract extract 05-19 [facility] 00:00: - CHI 00 [facility] allergy allergy 2022-0 No .1mL Common extract extract 05-19 [facility] 00:00: - CHI 00 [facility] allergy allergy 2022-0 No .1mL Common extract extract 05-19 [facility] 00:00: - CHI 00 [facility] allergy allergy 2022-0 No .1mL Common extract extract 05-19 [facility] 00:00: - CHI 00 [facility] allergy allergy 2022-0 No .1mL Common extract extract 05-19 [facility] 00:00: - CHI 00 [facility] allergy allergy 2022-0 No .1mL Common extract extract 05-19 [facility] 00:00: - CHI 00 [facility] allergy allergy 2022-0 No .1mL Common extract extract 05-19 [facility] 00:00: - CHI 00 [facility] allergy allergy 2022-0 No .1mL Common extract extract 05-19 [facility] 00:00: - CHI 00 [facility] allergy allergy 2022-0 No .1mL Common extract extract 05-19 [facility] 00:00: - CHI 00 [facility] allergy allergy 2022-0 No .1mL Common extract extract 05-19 [facility] 00:00: - CHI 00 [facility] allergy allergy 2022-0 No .1mL Common extract extract 05-19 [facility] 00:00: - CHI 00 [facility] allergy allergy 2022-0 No .1mL Common extract extract 05-19 [facility] 00:00: - CHI 00 [facility] allergy allergy 2022-0 No .1mL Common extract extract 05-19 [facility] 00:00: - CHI 00 [facility] allergy allergy 2022-0 No .1mL Common extract extract 05-19 [facility] 00:00: - CHI 00 [facility] allergy allergy 2022-0 No .1mL Common extract extract 05-19 [facility] 00:00: - CHI 00 [facility] allergy allergy 2022-0 No .1mL Common extract extract 05-19 [facility] 00:00: - CHI 00 [facility] allergy allergy 2022-0 No .1mL Common extract extract 05-19 [facility] 00:00: - CHI 00 [facility] allergy allergy 2022-0 No .1mL Common extract extract 05-19 [facility] 00:00: - CHI 00 [facility] allergy allergy 2022-0 No .1mL Common extract extract 05-19 [facility] 00:00: - CHI 00 [facility] allergy allergy 2022-0 No .1mL Common extract extract 05-19 [facility] 00:00: - CHI 00 [facility] allergy allergy 2022-0 No .1mL Common extract extract 05-19 [facility] 00:00: - CHI 00 [facility] allergy allergy 2022-0 No .1mL Common extract extract 05-19 [facility] 00:00: - CHI 00 [facility] allergy allergy 2022-0 No .1mL Common extract extract 05-19 [facility] 00:00: - CHI 00 [facility] allergy allergy 2-0 No .1mL Common extract extract 05-19 [facility] 00:00: - CHI 00 [facility] allergy allergy 2-0 No .1mL Common extract extract 05-19 [facility] 00:00: - CHI 00 [facility] allergy allergy 2-0 No .1mL Common extract extract 05-19 [facility] 00:00: - CHI [facility] allergy allergy 2-0 No .05mL Common extract extract 05-12 [facility] 00:00: - CHI 00 [facility] allergy allergy 2022-0 No .05mL Common extract extract 05-12 [facility] 00:00: - CHI 00 [facility] allergy allergy 2022-0 No .05mL Common extract extract 05-12 [facility] 00:00: - CHI 00 [facility] allergy allergy 2022-0 No .05mL Common extract extract 05-12 [facility] 00:00: - CHI 00 [facility] allergy allergy 2022-0 No .05mL Common extract extract 05-12 [facility] 00:00: - CHI 00 [facility] allergy allergy 2022-0 No .05mL Common extract extract 05-12 [facility] 00:00: - CHI 00 [facility] allergy allergy 2022-0 No .05mL Common extract extract 05-12 [facility] 00:00: - CHI 00 [facility] allergy allergy 2022-0 No .05mL Common extract extract 05-12 [facility] 00:00: - CHI 00 [facility] allergy allergy 2022-0 No .05mL Common extract extract 05-12 [facility] 00:00: - CHI 00 [facility] allergy allergy 2022-0 No .05mL Common extract extract 05-12 [facility] 00:00: - CHI 00 [facility] allergy allergy 2022-0 No .05mL Common extract extract 05-12 [facility] 00:00: - CHI 00 [facility] allergy allergy 2022-0 No .05mL Common extract extract 05-12 [facility] 00:00: - CHI 00 [facility] allergy allergy 2022-0 No .05mL Common extract extract 05-12 [facility] 00:00: - CHI 00 [facility] allergy allergy 2022-0 No .05mL Common extract extract 05-12 [facility] 00:00: - CHI 00 [facility] allergy allergy 2022-0 No .05mL Common extract extract 05-12 [facility] 00:00: - CHI 00 [facility] allergy allergy 2022-0 No .05mL Common extract extract 05-12 [facility] 00:00: - CHI 00 [facility] allergy allergy 2022-0 No .05mL Common extract extract 05-12 [facility] 00:00: - CHI 00 [facility] allergy allergy 2022-0 No .05mL Common extract extract 05-12 [facility] 00:00: - CHI 00 [facility] allergy allergy 2022-0 No .05mL Common extract extract 05-12 [facility] 00:00: - CHI 00 [facility] allergy allergy 2022-0 No .05mL Common extract extract 05-12 [facility] 00:00: - CHI 00 [facility] allergy allergy 2022-0 No .05mL Common extract extract 05-12 [facility] 00:00: - CHI 00 [facility] allergy allergy 2022-0 No .05mL Common extract extract 05-12 [facility] 00:00: - CHI 00 [facility] allergy allergy 2022-0 No .05mL Common extract extract 05-12 [facility] 00:00: - CHI 00 [facility] allergy allergy 2022-0 No .05mL Common extract extract 05-12 [facility] 00:00: - CHI 00 [facility] allergy allergy 2022-0 No .05mL Common extract extract 05-12 [facility] 00:00: - CHI 00 [facility] allergy allergy 2022-0 No .05mL Common extract extract 05-12 [facility] 00:00: - CHI 00 [facility] allergy allergy 2022-0 No .05mL Common extract extract 05-12 [facility] 00:00: - CHI 00 [facility] allergy allergy 2022-0 No .05mL Common extract extract 05-12 [facility] 00:00: - CHI 00 [facility] allergy allergy 2022-0 No .05mL Common extract extract 05-12 [facility] 00:00: - CHI 00 [facility] allergy allergy 2022-0 No .05mL Common extract extract 05-12 [facility] 00:00: - CHI 00 [facility] allergy allergy 2022-0 No .05mL Common extract extract 05-12 [facility] 00:00: - CHI 00 [facility] allergy allergy 2022-0 No .05mL Common extract extract 05-12 [facility] 00:00: - CHI 00 [facility] allergy allergy 2-0 No .05mL Common extract extract 05-12 [facility] 00:00: - CHI 00 [facility] allergy allergy 2-0 No .05mL Common extract extract 05-12 [facility] 00:00: - CHI 00 [facility] allergy allergy 2-0 No .05mL Common extract extract 05-12 [facility] 00:00: - CHI 00 [facility] allergy allergy 2022-0 No .05mL Common extract extract 05-12 [facility] 00:00: - CHI 00 [facility] allergy allergy 2-0 No .05mL Common extract extract 05-12 [facility] 00:00: - CHI 00 [facility] allergy allergy 2022-0 No .05mL Common extract extract 05-12 [facility] 00:00: - CHI 00 [facility] allergy allergy 2022-0 No .05mL Common extract extract 05-12 [facility] 00:00: - CHI 00 [facility] allergy allergy 2022-0 No .05mL Common extract extract 05-12 [facility] 00:00: - CHI 00 [facility] allergy allergy 2022-0 No .05mL Common extract extract 05-12 [facility] 00:00: - CHI 00 [facility] allergy allergy 2022-0 No .05mL Common extract extract 05-12 [facility] 00:00: - CHI 00 [facility] allergy allergy 2022-0 No .05mL Common extract extract 05-12 [facility] 00:00: - CHI 00 [facility] allergy allergy 2022-0 No .05mL Common extract extract 05-12 [facility] 00:00: - CHI 00 [facility] allergy allergy 2022-0 No .05mL Common extract extract 05-12 [facility] 00:00: - CHI 00 [facility] allergy allergy 2022-0 No .05mL Common extract extract 05-12 [facility] 00:00: - CHI 00 [facility] allergy allergy 2022-0 No .05mL Common extract extract 05-12 [facility] 00:00: - CHI 00 [facility] allergy allergy 2022-0 No .05mL Common extract extract 05-12 [facility] 00:00: - CHI 00 [facility] allergy allergy 2022-0 No .05mL Common extract extract 05-12 [facility] 00:00: - CHI 00 [facility] allergy allergy 2022-0 No .05mL Common extract extract 05-12 [facility] 00:00: - CHI 00 [facility] allergy allergy 2022-0 No .05mL Common extract extract 05-12 [facility] 00:00: - CHI 00 [facility] allergy allergy 2022-0 No .05mL Common extract extract 05-12 [facility] 00:00: - CHI 00 [facility] allergy allergy 2022-0 No .05mL Common extract extract 05-12 [facility] 00:00: - CHI 00 [facility] allergy allergy 2022-0 No .05mL Common extract extract 05-12 [facility] 00:00: - CHI 00 [facility] allergy allergy 2022-0 No .05mL Common extract extract 05-12 [facility] 00:00: - CHI 00 [facility] allergy allergy 2022-0 No .05mL Common extract extract 05-12 [facility] 00:00: - CHI 00 [facility] allergy allergy 2022-0 No .05mL Common extract extract 05-12 [facility] 00:00: - CHI 00 [facility] allergy allergy 2022-0 No .05mL Common extract extract 05-12 [facility] 00:00: - CHI 00 [facility] allergy allergy 2022-0 No .05mL Common extract extract 05-12 [facility] 00:00: - CHI 00 [facility] allergy allergy 2022-0 No .05mL Common extract extract 05-12 [facility] 00:00: - CHI 00 [facility] allergy allergy 2022-0 No .05mL Common extract extract 05-12 [facility] 00:00: - CHI 00 [facility] allergy allergy 2022-0 No .05mL Common extract extract 05-12 [facility] 00:00: - CHI 00 [facility] allergy allergy 2-0 No .5mL Common extract extract 8 [facility] 00:00: - CHI 00 [facility] allergy allergy 2-0 No .5mL Common extract extract 8 [facility] 00:00: - CHI 00 [facility] allergy allergy 2-0 No .5mL Common extract extract 8 [facility] 00:00: - CHI 00 [facility] allergy allergy 2-0 No .5mL Common extract extract 8 [facility] 00:00: - CHI 00 [facility] allergy allergy 2-0 No .5mL Common extract extract 8 [facility] 00:00: - CHI [facility] allergy allergy 2-0 No .5mL Common extract extract 05-05 [facility] 00:00: - CHI 00 [facility] allergy allergy 2-0 No .5mL Common extract extract 8 [facility] 00:00: - CHI [facility] allergy allergy 2-0 No .5mL Common extract extract 8 [facility] 00:00: - CHI 00 [facility] allergy allergy 2-0 No .5mL Common extract extract 8 [facility] 00:00: - CHI 00 [facility] allergy allergy 2-0 No .5mL Common extract extract 8 [facility] 00:00: - CHI [facility] allergy allergy 2-0 No .5mL Common extract extract 8 [facility] 00:00: - CHI 00 [facility] allergy allergy 2-0 No .5mL Common extract extract 825 [facility] 00:00: - CHI 00 [facility] allergy allergy 2-0 No .5mL Common extract extract 825 [facility] 00:00: - CHI 00 [facility] allergy allergy 2-0 No .5mL Common extract extract 8 [facility] 00:00: - CHI 00 [facility] allergy allergy 2-0 No .5mL Common extract extract 8 [facility] 00:00: - CHI 00 [facility] allergy allergy 2-0 No .5mL Common extract extract 825 [facility] 00:00: - CHI 00 [facility] allergy allergy 2-0 No .5mL Common extract extract 8-25 [facility] 00:00: - CHI 00 [facility] allergy allergy 2-0 No .5mL Common extract extract 8-25 [facility] 00:00: - CHI 00 [facility] allergy allergy 2-0 No .5mL Common extract extract 825 [facility] 00:00: - CHI 00 [facility] allergy allergy 2-0 No .5mL Common extract extract 825 [facility] 00:00: - CHI 00 [facility] allergy allergy 2-0 No .5mL Common extract extract 825 [facility] 00:00: - CHI 00 [facility] allergy allergy 2-0 No .5mL Common extract extract 825 [facility] 00:00: - CHI 00 [facility] allergy allergy 2-0 No .5mL Common extract extract 825 [facility] 00:00: - CHI [facility] allergy allergy 2-0 No .5mL Common extract extract 825 [facility] 00:00: - CHI [facility] allergy allergy 2-0 No .5mL Common extract extract 825 [facility] 00:00: - CHI [facility] allergy allergy 2-0 No .5mL Common extract extract 825 [facility] 00:00: - CHI [facility] allergy allergy 2-0 No .5mL Common extract extract 825 [facility] 00:00: - CHI [facility] allergy allergy 2-0 No .5mL Common extract extract [facility]25 [facility] 00:00: - [facility] allergy allergy 2-0 No .5mL Common extract extract [facility] 00:00: - [facility] 00 [facility] allergy allergy 2-0 No .5mL Common extract extract [facility] 00:00: - [facility] 00 [facility] allergy allergy 2-0 No .5mL Common extract extract [facility] 00:00: - [facility] 00 [facility] allergy allergy 2-0 No .5mL Common extract extract [facility] 00:00: - [facility] 00 [facility] allergy allergy 2-0 No .5mL Common extract extract [facility] 00:00: - [facility] 00 [facility] allergy allergy 2-0 No .5mL Common extract extract 8-25 [facility] 00:00: - [facility] 00 [facility] allergy allergy 2-0 No .5mL Common extract extract 8-25 [facility] 00:00: - [facility] 00 [facility] allergy allergy 2-0 No .5mL Common extract extract 8-25 [facility] 00:00: - [facility] 00 [facility] allergy allergy 2-0 No .5mL Common extract extract 8-25 [facility] 00:00: - [facility] 00 [facility] allergy allergy 2-0 No .5mL Common extract extract 8-25 [facility] 00:00: - [facility] 00 [facility] allergy allergy 2-0 No .5mL Common extract extract 8-25 [facility] 00:00: - [facility] 00 [facility] allergy allergy 2-0 No .5mL Common extract extract 8-25 [facility] 00:00: - [facility] 00 [facility] allergy allergy 2-0 No .5mL Common extract extract 8-25 [facility] 00:00: - [facility] allergy allergy 2-0 No .5mL Common extract extract 8-25 [facility] 00:00: - [facility] allergy allergy 2-0 No .5mL Common extract extract 8-25 [facility] 00:00: - [facility] allergy allergy 2-0 No .5mL Common extract extract 8-25 [facility] 00:00: - [facility] 00 [facility] allergy allergy 2-0 No .5mL Common extract extract 8-25 [facility] 00:00: - [facility] allergy allergy 2-0 No .5mL Common extract extract 8-25 [facility] 00:00: - [facility] 00 [facility] allergy allergy 2-0 No .5mL Common extract extract 8-25 [facility] 00:00: - [facility] 00 [facility] allergy allergy 2-0 No .5mL Common extract extract 8-25 [facility] 00:00: - [facility] 00 [facility] allergy allergy 2-0 No .5mL Common extract extract 8-25 [facility] 00:00: - [facility] 00 [facility] allergy allergy 2-0 No .5mL Common extract extract 8-25 [facility] 00:00: - [facility] 00 [facility] allergy allergy 2-0 No .5mL Common extract extract 8-25 [facility] 00:00: - [facility] 00 [facility] allergy allergy 2-0 No .5mL Common extract extract 8-25 [facility] 00:00: - [facility] 00 [facility] allergy allergy 2-0 No .5mL Common extract extract 8-25 [facility] 00:00: - [facility] 00 [facility] allergy allergy 2-0 No .5mL Common extract extract 8-25 [facility] 00:00: - [facility] 00 [facility] allergy allergy 2-0 No .5mL Common extract extract 8-25 [facility] 00:00: - [facility] 00 [facility] allergy allergy 2-0 No .5mL Common extract extract [facility] 00:00: - [facility] 00 [facility] allergy allergy 2-0 No .5mL Common extract extract [facility] 00:00: - [facility] 00 [facility] allergy allergy 2-0 No .5mL Common extract extract [facility] 00:00: - [facility] allergy allergy 2-0 No .5mL Common extract extract [facility] 00:00: - [facility] allergy allergy 2-0 No .5mL Common extract extract [facility] 00:00: - [facility] allergy allergy 2-0 No .5mL Common extract extract [facility] 00:00: - [facility] allergy allergy 2-0 No .5mL Common extract extract [facility] 00:00: - [facility] 00 [facility] allergy allergy 2-0 No .5mL Common extract extract 8-25 [facility] 00:00: - [facility] allergy allergy 2-0 No .5mL Common extract extract [facility] 00:00: - [facility] 00 [facility] allergy allergy 2-0 No .45mL Common extract extract 8-18 [facility] 00:00: - [facility] 00 [facility] allergy allergy 2-0 No .45mL Common extract extract 8-18 [facility] 00:00: - [facility] 00 [facility] allergy allergy 2-0 No .45mL Common extract extract 8-18 [facility] 00:00: - [facility] 00 [facility] allergy allergy 2-0 No .45mL Common extract extract 8-18 [facility] 00:00: - [facility] 00 [facility] allergy allergy 2-0 No .45mL Common extract extract 8-18 [facility] 00:00: - [facility] 00 [facility] allergy allergy 2-0 No .45mL Common extract extract 818 [facility] 00:00: - [facility] 00 [facility] allergy allergy 2-0 No .45mL Common extract extract [facility] 00:00: - [facility] 00 [facility] allergy allergy 2-0 No .45mL Common extract extract [facility] 00:00: - [facility] 00 [facility] allergy allergy 2-0 No .45mL Common extract extract [facility] 00:00: - [facility] 00 [facility] allergy allergy 2-0 No .45mL Common extract extract [facility] 00:00: - [facility] 00 [facility] allergy allergy 2-0 No .45mL Common extract extract 8 [facility] 00:00: - [facility] 00 [facility] allergy allergy 2-0 No .45mL Common extract extract 8 [facility] 00:00: - [facility] 00 [facility] allergy allergy 2-0 No .45mL Common extract extract 8 [facility] 00:00: - [facility] 00 [facility] allergy allergy 2-0 No .45mL Common extract extract 8 [facility] 00:00: - [facility] 00 [facility] allergy allergy 2-0 No .45mL Common extract extract 8 [facility] 00:00: - [facility] 00 [facility] allergy allergy 2-0 No .45mL Common extract extract [facility] 00:00: - [facility] 00 [facility] allergy allergy 2-0 No .45mL Common extract extract [facility] 00:00: - [facility] 00 [facility] allergy allergy 2-0 No .45mL Common extract extract [facility] 00:00: - [facility] 00 [facility] allergy allergy 2-0 No .45mL Common extract extract 8[facility] 00:00: - [facility] 00 [facility] allergy allergy 2-0 No .45mL Common extract extract 818 [facility] 00:00: - [facility] 00 [facility] allergy allergy 2-0 No .45mL Common extract extract 818 [facility] 00:00: - [facility] 00 [facility] allergy allergy 2-0 No .45mL Common extract extract 8[facility] 00:00: - [facility] 00 [facility] allergy allergy 2-0 No .45mL Common extract extract 8[facility] 00:00: - [facility] 00 [facility] allergy allergy 2-0 No .45mL Common extract extract [facility] 00:00: - [facility] 00 [facility] allergy allergy 2-0 No .45mL Common extract extract 8[facility] 00:00: - [facility] 00 [facility] allergy allergy 2-0 No .45mL Common extract extract [facility] 00:00: - [facility] 00 [facility] allergy allergy 2-0 No .45mL Common extract extract 8[facility] 00:00: - [facility] 00 [facility] allergy allergy 2-0 No .45mL Common extract extract 818 [facility] 00:00: - [facility] allergy allergy 2-0 No .45mL Common extract extract 8 [facility] 00:00: - [facility] allergy allergy 2-0 No .45mL Common extract extract [facility] 00:00: - [facility] allergy allergy 2-0 No .45mL Common extract extract 8[facility] 00:00: - [facility] allergy allergy 2-0 No .45mL Common extract extract [facility] 00:00: - [facility] allergy allergy 2-0 No .45mL Common extract extract [facility] 00:00: - [facility] allergy allergy 2-0 No .4mL Common extract extract 8 [facility] 00:00: - [facility] 00 [facility] allergy allergy 2-0 No .4mL Common extract extract 8- [facility] 00:00: - [facility] 00 [facility] allergy allergy 2-0 No .4mL Common extract extract 8 [facility] 00:00: - [facility] 00 [facility] allergy allergy 2-0 No .4mL Common extract extract 8 [facility] 00:00: - [facility] 00 [facility] allergy allergy 2-0 No .4mL Common extract extract 8-11 [facility] 00:00: - [facility] 00 [facility] allergy allergy 2-0 No .4mL Common extract extract 8-11 [facility] 00:00: - [facility] 00 [facility] allergy allergy 2-0 No .4mL Common extract extract 8-11 [facility] 00:00: - [facility] 00 [facility] allergy allergy 2-0 No .4mL Common extract extract 8-11 [facility] 00:00: - [facility] 00 [facility] allergy allergy 2-0 No .4mL Common extract extract 8-11 [facility] 00:00: - [facility] 00 [facility] allergy allergy 2021-0 No .4mL Common extract extract 8-11 [facility] 00:00: - [facility] 00 [facility] allergy allergy 2021-0 No .4mL Common extract extract 8-11 [facility] 00:00: - [facility] allergy allergy 2021-0 No .4mL Common extract extract 8-11 [facility] 00:00: - [facility] allergy allergy 2021-0 No .4mL Common extract extract 8-11 [facility] 00:00: - [facility] allergy allergy 2021-0 No .4mL Common extract extract 8-11 [facility] 00:00: - [facility] allergy allergy 2021-0 No .4mL Common extract extract 8-11 [facility] 00:00: - [facility] allergy allergy 2021-0 No .4mL Common extract extract 8-11 [facility] 00:00: - [facility] 00 [facility] allergy allergy 2-0 No .4mL Common extract extract 8-11 [facility] 00:00: - [facility] allergy allergy 2-0 No .4mL Common extract extract 8-11 [facility] 00:00: - [facility] 00 [facility] allergy allergy 2-0 No .4mL Common extract extract 8-11 [facility] 00:00: - [facility] 00 [facility] allergy allergy 2-0 No .4mL Common extract extract 8-11 [facility] 00:00: - [facility] 00 [facility] allergy allergy 2-0 No .4mL Common extract extract 8-11 [facility] 00:00: - [facility] 00 [facility] allergy allergy 2-0 No .4mL Common extract extract 8-11 [facility] 00:00: - [facility] 00 [facility] allergy allergy 2-0 No .4mL Common extract extract 8-11 [facility] 00:00: - [facility] allergy allergy 2-0 No .4mL Common extract extract 8-11 [facility] 00:00: - [facility] 00 [facility] allergy allergy 2-0 No .4mL Common extract extract 8-11 [facility] 00:00: - [facility] 00 [facility] allergy allergy 2-0 No .4mL Common extract extract 8-11 [facility] 00:00: - [facility] 00 [facility] allergy allergy 2-0 No .4mL Common extract extract 8-11 [facility] 00:00: - [facility] 00 [facility] allergy allergy 2021-0 No .4mL Common extract extract 8-11 [facility] 00:00: - [facility] 00 [facility] allergy allergy 2021-0 No .4mL Common extract extract 8-11 [facility] 00:00: - [facility] allergy allergy 2021-0 No .4mL Common extract extract 8-11 [facility] 00:00: - [facility] allergy allergy 2-0 No .4mL Common extract extract 8-11 [facility] 00:00: - [facility] allergy allergy 2021-0 No .4mL Common extract extract 8-11 [facility] 00:00: - [facility] allergy allergy 2-0 No .4mL Common extract extract 8-11 [facility] 00:00: - [facility] allergy allergy 2-0 No .4mL Common extract extract [facility] 00:00: - [facility] 00 [facility] allergy allergy 2-0 No .4mL Common extract extract 8-11 [facility] 00:00: - [facility] allergy allergy 2-0 No .4mL Common extract extract 8-11 [facility] 00:00: - [facility] 00 [facility] allergy allergy 2-0 No .4mL Common extract extract 8-11 [facility] 00:00: - [facility] 00 [facility] allergy allergy 2-0 No .4mL Common extract extract 8-11 [facility] 00:00: - [facility] 00 [facility] allergy allergy 2-0 No .4mL Common extract extract 8-11 [facility] 00:00: - [facility] 00 [facility] allergy allergy 2-0 No .4mL Common extract extract 8-11 [facility] 00:00: - [facility] 00 [facility] allergy allergy 2-0 No .4mL Common extract extract 8-11 [facility] 00:00: - [facility] 00 [facility] allergy allergy 2-0 No .4mL Common extract extract 8-11 [facility] 00:00: - [facility] 00 [facility] allergy allergy 2-0 No .4mL Common extract extract 8-11 [facility] 00:00: - [facility] 00 [facility] allergy allergy 2-0 No .4mL Common extract extract 8-11 [facility] 00:00: - [facility] 00 [facility] allergy allergy 2-0 No .4mL Common extract extract 8-11 [facility] 00:00: - [facility] 00 [facility] allergy allergy 2-0 No .4mL Common extract extract 8-11 [facility] 00:00: - [facility] 00 [facility] allergy allergy 2-0 No .4mL Common extract extract 8-11 [facility] 00:00: - [facility] 00 [facility] allergy allergy 2-0 No .4mL Common extract extract 8-11 [facility] 00:00: - [facility] 00 [facility] allergy allergy 2-0 No .4mL Common extract extract 8-11 [facility] 00:00: - [facility] 00 [facility] allergy allergy 2-0 No .4mL Common extract extract 8-11 [facility] 00:00: - [facility] 00 [facility] allergy allergy 2-0 No .4mL Common extract extract 8-11 [facility] 00:00: - [facility] 00 [facility] allergy allergy 2-0 No .4mL Common extract extract 8-11 [facility] 00:00: - [facility] 00 [facility] allergy allergy 2-0 No .4mL Common extract extract 8-11 [facility] 00:00: - [facility] 00 [facility] allergy allergy 2-0 No .4mL Common extract extract 8-11 [facility] 00:00: - [facility] 00 [facility] allergy allergy 2-0 No .4mL Common extract extract 8-11 [facility] 00:00: - [facility] 00 [facility] allergy allergy 2-0 No .4mL Common extract extract 8-11 [facility] 00:00: - [facility] 00 [facility] allergy allergy 2-0 No .4mL Common extract extract 8-11 [facility] 00:00: - [facility] 00 [facility] allergy allergy 2-0 No .4mL Common extract extract 8-11 [facility] 00:00: - [facility] 00 [facility] allergy allergy 2-0 No .4mL Common extract extract 8- [facility] 00:00: - [facility] 00 [facility] allergy allergy 2-0 No .4mL Common extract extract 8 [facility] 00:00: - [facility] 00 [facility] allergy allergy 2-0 No .4mL Common extract extract 8 [facility] 00:00: - [facility] 00 [facility] allergy allergy 2-0 No .4mL Common extract extract 8 [facility] 00:00: - [facility] 00 [facility] allergy allergy 2-0 No .4mL Common extract extract 8 [facility] 00:00: - [facility] 00 [facility] allergy allergy 2-0 No .4mL Common extract extract 8 [facility] 00:00: - [facility] allergy allergy 2-0 No .4mL Common extract extract 8 [facility] 00:00: - [facility] allergy allergy 2-0 No .4mL Common extract extract 8 [facility] 00:00: - [facility] allergy allergy 2-0 No .4mL Common extract extract 8 [facility] 00:00: - [facility] 00 [facility] allergy allergy 2-0 No .4mL Common extract extract 8 [facility] 00:00: - [facility] allergy allergy 2-0 No .4mL Common extract extract 8 [facility] 00:00: - [facility] allergy allergy 2-0 No .4mL Common extract extract 8 [facility] 00:00: - [facility] 00 [facility] allergy allergy 2-0 No .35mL Common extract extract 8 [facility] 00:00: - [facility] 00 [facility] allergy allergy 2-0 No .35mL Common extract extract 8 [facility] 00:00: - [facility] 00 [facility] allergy allergy 2-0 No .35mL Common extract extract 8 [facility] 00:00: - [facility] 00 [facility] allergy allergy 2-0 No .35mL Common extract extract 8 [facility] 00:00: - [facility] 00 [facility] allergy allergy 2-0 No .35mL Common extract extract 8 [facility] 00:00: - [facility] 00 [facility] allergy allergy 2-0 No .35mL Common extract extract 04-14 [facility] 00:00: - [facility] 00 [facility] allergy allergy 2-0 No .35mL Common extract extract 04-14 [facility] 00:00: - [facility] 00 [facility] allergy allergy 2-0 No .35mL Common extract extract 04-14 [facility] 00:00: - [facility] 00 [facility] allergy allergy 2-0 No .35mL Common extract extract 04-14 [facility] 00:00: - [facility] 00 [facility] allergy allergy 2-0 No .35mL Common extract extract 04-14 [facility] 00:00: - [facility] 00 [facility] allergy allergy 2-0 No .35mL Common extract extract 04-14 [facility] 00:00: - [facility] 00 [facility] allergy allergy 2-0 No .35mL Common extract extract 04-14 [facility] 00:00: - [facility] 00 [facility] allergy allergy 2-0 No .35mL Common extract extract 04-14 [facility] 00:00: - [facility] 00 [facility] allergy allergy 2-0 No .35mL Common extract extract 04-14 [facility] 00:00: - [facility] 00 [facility] allergy allergy 2-0 No .35mL Common extract extract 04-14 [facility] 00:00: - [facility] 00 [facility] allergy allergy 2-0 No .35mL Common extract extract 04-14 [facility] 00:00: - [facility] 00 [facility] allergy allergy 2-0 No .35mL Common extract extract 04-14 [facility] 00:00: - [facility] 00 [facility] allergy allergy 2-0 No .35mL Common extract extract 04-14 [facility] 00:00: - [facility] 00 [facility] allergy allergy 2-0 No .35mL Common extract extract 04-14 [facility] 00:00: - [facility] 00 [facility] allergy allergy 2-0 No .35mL Common extract extract 04-14 [facility] 00:00: - [facility] 00 [facility] allergy allergy 2-0 No .35mL Common extract extract 04-14 [facility] 00:00: - [facility] 00 [facility] allergy allergy 2-0 No .35mL Common extract extract 04-14 [facility] 00:00: - [facility] 00 [facility] allergy allergy 2-0 No .35mL Common extract extract 04-14 [facility] 00:00: - [facility] 00 [facility] allergy allergy 2-0 No .35mL Common extract extract 04-14 [facility] 00:00: - [facility] 00 [facility] allergy allergy 2-0 No .35mL Common extract extract 04-14 [facility] 00:00: - [facility] 00 [facility] allergy allergy 2-0 No .35mL Common extract extract 04-14 [facility] 00:00: - [facility] 00 [facility] allergy allergy 2-0 No .35mL Common extract extract 04-14 [facility] 00:00: - [facility] 00 [facility] allergy allergy 2-0 No .35mL Common extract extract 04-14 [facility] 00:00: - [facility] 00 [facility] allergy allergy 2-0 No .35mL Common extract extract 04-14 [facility] 00:00: - [facility] 00 [facility] allergy allergy 2-0 No .35mL Common extract extract 04-14 [facility] 00:00: - [facility] 00 [facility] allergy allergy 2-0 No .35mL Common extract extract 04-14 [facility] 00:00: - [facility] 00 [facility] allergy allergy 2-0 No .35mL Common extract extract 04-14 [facility] 00:00: - [facility] 00 [facility] allergy allergy 2-0 No .35mL Common extract extract 04-14 [facility] 00:00: - [facility] 00 [facility] allergy allergy 2-0 No .35mL Common extract extract 04-14 [facility] 00:00: - [facility] 00 [facility] allergy allergy 2-0 No .35mL Common extract extract 04-14 [facility] 00:00: - [facility] 00 [facility] allergy allergy 2-0 No .35mL Common extract extract 04-14 [facility] 00:00: - [facility] 00 [facility] allergy allergy 2-0 No .35mL Common extract extract 04-14 [facility] 00:00: - [facility] 00 [facility] allergy allergy 2-0 No .35mL Common extract extract 04-14 [facility] 00:00: - [facility] 00 [facility] allergy allergy 2-0 No .35mL Common extract extract 04-14 [facility] 00:00: - [facility] 00 [facility] allergy allergy 2-0 No .35mL Common extract extract 8-04 [facility] 00:00: - [facility] 00 [facility] allergy allergy 2-0 No .35mL Common extract extract 04-14 [facility] 00:00: - [facility] 00 [facility] allergy allergy 2-0 No .35mL Common extract extract 04-14 [facility] 00:00: - [facility] 00 [facility] allergy allergy 2-0 No .35mL Common extract extract 04-14 [facility] 00:00: - [facility] 00 [facility] allergy allergy 2-0 No .35mL Common extract extract 04-14 [facility] 00:00: - [facility] 00 [facility] allergy allergy 2-0 No .35mL Common extract extract 04-14 [facility] 00:00: - [facility] 00 [facility] allergy allergy 2-0 No .35mL Common extract extract 04-14 [facility] 00:00: - [facility] 00 [facility] allergy allergy 2-0 No .35mL Common extract extract 04-14 [facility] 00:00: - [facility] 00 [facility] allergy allergy 2-0 No .35mL Common extract extract 04-14 [facility] 00:00: - [facility] 00 [facility] allergy allergy 2-0 No .35mL Common extract extract 04-14 [facility] 00:00: - [facility] 00 [facility] allergy allergy 2-0 No .35mL Common extract extract 04-14 [facility] 00:00: - [facility] 00 [facility] allergy allergy 2-0 No .35mL Common extract extract 04-14 [facility] 00:00: - [facility] 00 [facility] allergy allergy 2-0 No .35mL Common extract extract 04-14 [facility] 00:00: - [facility] 00 [facility] allergy allergy 2022-0 No .35mL Common extract extract 04-14 [facility] 00:00: - [facility] 00 [facility] allergy allergy 2-0 No .35mL Common extract extract 04-14 [facility] 00:00: - [facility] 00 [facility] allergy allergy 2022-0 No .35mL Common extract extract 04-14 [facility] 00:00: - [facility] 00 [facility] allergy allergy 2022-0 No .35mL Common extract extract 04-14 [facility] 00:00: - [facility] 00 [facility] allergy allergy 2-0 No .35mL Common extract extract 04-14 [facility] 00:00: - [facility] 00 [facility] allergy allergy 2022-0 No .35mL Common extract extract 04-14 [facility] 00:00: - [facility] 00 [facility] allergy allergy 2-0 No .35mL Common extract extract 04-14 [facility] 00:00: - [facility] 00 [facility] allergy allergy 2-0 No .35mL Common extract extract 04-14 [facility] 00:00: - [facility] 00 [facility] allergy allergy 2-0 No .35mL Common extract extract 04-14 [facility] 00:00: - [facility] 00 [facility] allergy allergy 2-0 No .35mL Common extract extract 04-14 [facility] 00:00: - [facility] 00 [facility] allergy allergy 2-0 No .35mL Common extract extract 04-14 [facility] 00:00: - [facility] 00 [facility] allergy allergy 2-0 No .35mL Common extract extract 04-14 [facility] 00:00: - [facility] 00 [facility] allergy allergy 2-0 No .35mL Common extract extract 04-14 [facility] 00:00: - [facility] 00 [facility] allergy allergy 2-0 No .35mL Common extract extract 04-14 [facility] 00:00: - [facility] 00 [facility] allergy allergy 2-0 No .35mL Common extract extract 04-14 [facility] 00:00: - [facility] 00 [facility] allergy allergy 2-0 No .35mL Common extract extract 04-14 [facility] 00:00: - [facility] 00 [facility] allergy allergy 2-0 No .35mL Common extract extract 04-14 [facility] 00:00: - [facility] 00 [facility] allergy allergy 2022-0 No .35mL Common extract extract 04-14 [facility] 00:00: - [facility] 00 [facility] allergy allergy 2-0 No .35mL Common extract extract 04-14 [facility] 00:00: - [facility] 00 [facility] allergy allergy 2-0 No .35mL Common extract extract 04-14 [facility] 00:00: - [facility] 00 [facility] allergy allergy 2022-0 No .3mL Common extract extract 04-07 [facility] 00:00: - [facility] 00 [facility] allergy allergy 2022-0 No .3mL Common extract extract 04-07 [facility] 00:00: - [facility] 00 [facility] allergy allergy 2022-0 No .3mL Common extract extract 04-07 [facility] 00:00: - [facility] 00 [facility] allergy allergy 2022-0 No .3mL Common extract extract 04-07 [facility] 00:00: - [facility] 00 [facility] allergy allergy 2022-0 No .3mL Common extract extract 04-07 [facility] 00:00: - [facility] 00 [facility] allergy allergy 2022-0 No .3mL Common extract extract 04-07 [facility] 00:00: - [facility] 00 [facility] allergy allergy 2022-0 No .3mL Common extract extract 04-07 [facility] 00:00: - [facility] 00 [facility] allergy allergy 2-0 No .3mL Common extract extract 04-07 [facility] 00:00: - [facility] 00 [facility] allergy allergy 2-0 No .3mL Common extract extract 04-07 [facility] 00:00: - [facility] 00 [facility] allergy allergy 2022-0 No .3mL Common extract extract 04-07 [facility] 00:00: - [facility] 00 [facility] allergy allergy 2022-0 No .3mL Common extract extract 04-07 [facility] 00:00: - [facility] 00 [facility] allergy allergy 2022-0 No .3mL Common extract extract 04-07 [facility] 00:00: - [facility] 00 [facility] [facility] .3[facility] Common extract extract 04-07 [facility] 00[facility]: - [facility] 00 [facility] allergy allergy 2022-0 No .3mL Common extract extract 04-07 [facility] 00:00: - [facility] 00 [facility] allergy allergy 2022-0 No .3mL Common extract extract 04-07 [facility] 00:00: - [facility] 00 [facility] allergy allergy 2022-0 No .3mL Common extract extract 04-07 [facility] 00:00: - [facility] 00 [facility] allergy allergy 2022-0 No .3mL Common extract extract 04-07 [facility] 00:00: - [facility] 00 [facility] allergy allergy 2022-0 No .3mL Common extract extract 04-07 [facility] 00:00: - [facility] 00 [facility] allergy allergy 2022-0 No .3mL Common extract extract 04-07 [facility] 00:00: - [facility] 00 [facility] allergy allergy 2022-0 No .3mL Common extract extract 04-07 [facility] 00:00: - [facility] 00 [facility] allergy allergy 2022-0 No .3mL Common extract extract 04-07 [facility] 00:00: - [facility] 00 [facility] allergy allergy 2-0 No .3mL Common extract extract 04-07 [facility] 00:00: - [facility] 00 [facility] allergy allergy 2022-0 No .3mL Common extract extract 04-07 [facility] 00:00: - [facility] 00 [facility] allergy allergy 2-0 No .3mL Common extract extract 04-07 [facility] 00:00: - [facility] 00 [facility] allergy allergy 2-0 No .3mL Common extract extract 04-07 [facility] 00:00: - [facility] 00 [facility] allergy allergy 2-0 No .3mL Common extract extract 04-07 [facility] 00:00: - [facility] 00 [facility] allergy allergy 2-0 No .3mL Common extract extract 04-07 [facility] 00:00: - [facility] 00 [facility] allergy allergy 2-0 No .3mL Common extract extract 04-07 [facility] 00:00: - [facility] 00 [facility] allergy allergy 2-0 No .3mL Common extract extract 04-07 [facility] 00:00: - [facility] 00 [facility] allergy allergy 2-0 No .3mL Common extract extract 04-07 [facility] 00:00: - [facility] 00 [facility] allergy allergy 2-0 No .3mL Common extract extract 04-07 [facility] 00:00: - [facility] 00 [facility] allergy allergy 2022-0 No .3mL Common extract extract 04-07 [facility] 00:00: - [facility] 00 [facility] allergy allergy 2022-0 No .3mL Common extract extract 04-07 [facility] 00:00: - [facility] 00 [facility] allergy allergy 2022-0 No .3mL Common extract extract 04-07 [facility] 00:00: - [facility] 00 [facility] allergy allergy 2022-0 No .3mL Common extract extract 04-07 [facility] 00:00: - [facility] 00 [facility] allergy allergy 2022-0 No .3mL Common extract extract 04-07 [facility] 00:00: - [facility] 00 [facility] allergy allergy 2022-0 No .3mL Common extract extract 04-07 [facility] 00:00: - [facility] 00 [facility] allergy allergy 2022-0 No .3mL Common extract extract 04-07 [facility] 00:00: - [facility] 00 [facility] allergy allergy 2022-0 No .3mL Common extract extract 04-07 [facility] 00:00: - [facility] 00 [facility] allergy allergy 2022-0 No .3mL Common extract extract 04-07 [facility] 00:00: - [facility] 00 [facility] allergy allergy 2022-0 No .3mL Common extract extract 04-07 [facility] 00:00: - [facility] 00 [facility] allergy allergy 2-0 No .3mL Common extract extract 04-07 [facility] 00:00: - [facility] 00 [facility] allergy allergy 2-0 No .3mL Common extract extract 04-07 [facility] 00:00: - [facility] 00 [facility] allergy allergy 2-0 No .3mL Common extract extract 04-07 [facility] 00:00: - [facility] 00 [facility] allergy allergy 2-0 No .3mL Common extract extract 04-07 [facility] 00:00: - [facility] 00 [facility] allergy allergy 2-0 No .3mL Common extract extract 04-07 [facility] 00:00: - [facility] 00 [facility] allergy allergy 2-0 No .3mL Common extract extract 04-07 [facility] 00:00: - [facility] 00 [facility] allergy allergy 2022-0 No .3mL Common extract extract 04-07 [facility] 00:00: - [facility] 00 [facility] allergy allergy 2022-0 No .3mL Common extract extract 04-07 [facility] 00:00: - [facility] 00 [facility] allergy allergy 2022-0 No .3mL Common extract extract 04-07 [facility] 00:00: - [facility] 00 [facility] allergy allergy 2022-0 No .3mL Common extract extract 04-07 [facility] 00:00: - [facility] 00 [facility] allergy allergy 2022-0 No .3mL Common extract extract 04-07 [facility] 00:00: - [facility] 00 [facility] allergy allergy 2022-0 No .3mL Common extract extract 04-07 [facility] 00:00: - [facility] 00 [facility] allergy allergy 2022-0 No .3mL Common extract extract 04-07 [facility] 00:00: - [facility] 00 [facility] allergy allergy 2022-0 No .3mL Common extract extract 04-07 [facility] 00:00: - [facility] 00 [facility] allergy allergy 2022-0 No .3mL Common extract extract 04-07 [facility] 00:00: - [facility] 00 [facility] allergy allergy 2022-0 No .3mL Common extract extract 04-07 [facility] 00:00: - [facility] 00 [facility] allergy allergy 2022-0 No .3mL Common extract extract 04-07 [facility] 00:00: - [facility] 00 [facility] allergy allergy 2022-0 No .3mL Common extract extract 04-07 [facility] 00:00: - [facility] 00 [facility] allergy allergy 2022-0 No .3mL Common extract extract 04-07 [facility] 00:00: - [facility] 00 [facility] allergy allergy 2022-0 No .3mL Common extract extract 04-07 [facility] 00:00: - [facility] 00 [facility] allergy allergy 2-0 No .3mL Common extract extract 04-07 [facility] 00:00: - [facility] 00 [facility] allergy allergy 2022-0 No .3mL Common extract extract 04-07 [facility] 00:00: - [facility] 00 [facility] allergy allergy 2022-0 No .3mL Common extract extract 04-07 [facility] 00:00: - [facility] 00 [facility] allergy allergy 2022-0 No .3mL Common extract extract 04-07 [facility] 00:00: - [facility] 00 [facility] allergy allergy 2022-0 No .3mL Common extract extract 04-07 [facility] 00:00: - [facility] 00 [facility] allergy allergy 2022-0 No .3mL Common extract extract 04-07 [facility] 00:00: - [facility] 00 [facility] allergy allergy 2022-0 No .3mL Common extract extract 04-07 [facility] 00:00: - [facility] 00 [facility] allergy allergy 2022-0 No .3mL Common extract extract 04-07 [facility] 00:00: - [facility] 00 [facility] allergy allergy 2022-0 No .3mL Common extract extract 04-07 [facility] 00:00: - [facility] 00 [facility] allergy allergy 2022-0 No .3mL Common extract extract 04-07 [facility] 00:00: - [facility] 00 [facility] allergy allergy 2022-0 No .3mL Common extract extract 04-07 [facility] 00:00: - [facility] 00 [facility] allergy allergy 2-0 No .3mL Common extract extract 04-07 [facility] 00:00: - [facility] 00 [facility] allergy allergy 2-0 No .3mL Common extract extract 04-07 [facility] 00:00: - [facility] 00 [facility] allergy allergy 2-0 No .25mL Common extract extract 03-31 [facility] 00:00: - [facility] 00 [facility] allergy allergy 2-0 No .25mL Common extract extract 03-31 [facility] 00:00: - [facility] 00 [facility] allergy allergy 2-0 No .25mL Common extract extract 03-31 [facility] 00:00: - [facility] 00 [facility] allergy allergy 2-0 No .25mL Common extract extract 03-31 [facility] 00:00: - [facility] allergy allergy 2-0 No .25mL Common extract extract 03-31 [facility] 00:00: - [facility] allergy allergy 2-0 No .25mL Common extract extract 03-31 [facility] 00:00: - [facility] 00 [facility] allergy allergy 2-0 No .25mL Common extract extract 03-31 [facility] 00:00: - [facility] 00 [facility] allergy allergy 2-0 No .25mL Common extract extract 03-31 [facility] 00:00: - [facility] allergy allergy 2-0 No .25mL Common extract extract 03-31 [facility] 00:00: - [facility] 00 [facility] allergy allergy 2022-0 No .25mL Common extract extract 03-31 [facility] 00:00: - [facility] 00 [facility] allergy allergy 2022-0 No .25mL Common extract extract 03-31 [facility] 00:00: - [facility] 00 [facility] allergy allergy 2022-0 No .25mL Common extract extract 03-31 [facility] 00:00: - [facility] 00 [facility] allergy allergy 2022-0 No .25mL Common extract extract 03-31 [facility] 00:00: - [facility] 00 [facility] allergy allergy 2022-0 No .25mL Common extract extract 03-31 [facility] 00:00: - [facility] 00 [facility] allergy allergy 2022-0 No .25mL Common extract extract 03-31 [facility] 00:00: - [facility] 00 [facility] allergy allergy 2-0 No .25mL Common extract extract 03-31 [facility] 00:00: - [facility] 00 [facility] allergy allergy 2-0 No .25mL Common extract extract 03-31 [facility] 00:00: - [facility] 00 [facility] allergy allergy 2-0 No .25mL Common extract extract 03-31 [facility] 00:00: - [facility] 00 [facility] allergy allergy 2-0 No .25mL Common extract extract 03-31 [facility] 00:00: - [facility] 00 [facility] allergy allergy 2-0 No .25mL Common extract extract 03-31 [facility] 00:00: - [facility] 00 [facility] allergy allergy 2-0 No .25mL Common extract extract 03-31 [facility] 00:00: - [facility] 00 [facility] allergy allergy 2-0 No .25mL Common extract extract 03-31 [facility] 00:00: - [facility] 00 [facility] allergy allergy 2-0 No .25mL Common extract extract 03-31 [facility] 00:00: - [facility] 00 [facility] allergy allergy 2-0 No .25mL Common extract extract 03-31 [facility] 00:00: - [facility] 00 [facility] allergy allergy 2-0 No .25mL Common extract extract 03-31 [facility] 00:00: - [facility] 00 [facility] allergy allergy 2-0 No .25mL Common extract extract 03-31 [facility] 00:00: - [facility] 00 [facility] allergy allergy 2-0 No .25mL Common extract extract 03-31 [facility] 00:00: - [facility] 00 [facility] allergy allergy 2-0 No .25mL Common extract extract 03-31 [facility] 00:00: - [facility] 00 [facility] allergy allergy 2-0 No .25mL Common extract extract 03-31 [facility] 00:00: - [facility] 00 [facility] allergy allergy 2-0 No .25mL Common extract extract 03-31 [facility] 00:00: - [facility] 00 [facility] allergy allergy 2-0 No .25mL Common extract extract 03-31 [facility] 00:00: - [facility] 00 [facility] allergy allergy 2022-0 No .25mL Common extract extract 03-31 [facility] 00:00: - [facility] 00 [facility] allergy allergy 2-0 No .25mL Common extract extract 03-31 [facility] 00:00: - [facility] 00 [facility] allergy allergy 2-0 No .25mL Common extract extract 03-31 [facility] 00:00: - [facility] 00 [facility] allergy allergy 2-0 No .25mL Common extract extract 03-31 [facility] 00:00: - [facility] 00 [facility] allergy allergy 2-0 No .25mL Common extract extract 03-31 [facility] 00:00: - [facility] 00 [facility] allergy allergy 2-0 No .25mL Common extract extract 03-31 [facility] 00:00: - [facility] 00 [facility] allergy allergy 2-0 No .25mL Common extract extract 03-31 [facility] 00:00: - [facility] 00 [facility] allergy allergy 2-0 No .25mL Common extract extract 03-31 [facility] 00:00: - [facility] 00 [facility] allergy allergy 2-0 No .25mL Common extract extract 03-31 [facility] 00:00: - [facility] 00 [facility] allergy allergy 2-0 No .25mL Common extract extract 03-31 [facility] 00:00: - [facility] 00 [facility] allergy allergy 2-0 No .25mL Common extract extract 03-31 [facility] 00:00: - [facility] 00 [facility] allergy allergy 2-0 No .25mL Common extract extract 03-31 [facility] 00:00: - [facility] 00 [facility] allergy allergy 2-0 No .25mL Common extract extract 03-31 [facility] 00:00: - [facility] 00 [facility] allergy allergy 2022-0 No .25mL Common extract extract 03-31 [facility] 00:00: - [facility] 00 [facility] allergy allergy 2022-0 No .25mL Common extract extract 03-31 [facility] 00:00: - [facility] 00 [facility] allergy allergy 2022-0 No .25mL Common extract extract 03-31 [facility] 00:00: - [facility] 00 [facility] allergy allergy 2022-0 No .25mL Common extract extract 03-31 [facility] 00:00: - [facility] 00 [facility] allergy allergy 2022-0 No .25mL Common extract extract 03-31 [facility] 00:00: - [facility] 00 [facility] allergy allergy 2022-0 No .25mL Common extract extract 03-31 [facility] 00:00: - [facility] 00 [facility] allergy allergy 2-0 No .25mL Common extract extract 03-31 [facility] 00:00: - [facility] 00 [facility] allergy allergy 2-0 No .25mL Common extract extract 03-31 [facility] 00:00: - [facility] 00 [facility] allergy allergy 2-0 No .25mL Common extract extract 03-31 [facility] 00:00: - [facility] 00 [facility] allergy allergy 2-0 No .25mL Common extract extract 03-31 [facility] 00:00: - [facility] 00 [facility] allergy allergy 2-0 No .25mL Common extract extract 03-31 [facility] 00:00: - [facility] 00 [facility] allergy allergy 2-0 No .25mL Common extract extract 03-31 [facility] 00:00: - [facility] 00 [facility] allergy allergy 2-0 No .25mL Common extract extract 03-31 [facility] 00:00: - [facility] 00 [facility] allergy allergy 2-0 No .25mL Common extract extract 03-31 [facility] 00:00: - [facility] 00 [facility] allergy allergy 2-0 No .25mL Common extract extract 03-31 [facility] 00:00: - [facility] 00 [facility] allergy allergy 2-0 No .25mL Common extract extract 03-31 [facility] 00:00: - [facility] 00 [facility] allergy allergy 2022-0 No .25mL Common extract extract 03-31 [facility] 00:00: - [facility] 00 [facility] allergy allergy 2022-0 No .25mL Common extract extract 03-31 [facility] 00:00: - [facility] 00 [facility] allergy allergy 2022-0 No .25mL Common extract extract 03-31 [facility] 00:00: - [facility] 00 [facility] allergy allergy 2022-0 No .25mL Common extract extract 03-31 [facility] 00:00: - [facility] 00 [facility] allergy allergy 2022-0 No .25mL Common extract extract 03-31 [facility] 00:00: - [facility] 00 [facility] allergy allergy 2022-0 No .25mL Common extract extract 03-31 [facility] 00:00: - [facility] 00 [facility] allergy allergy 2-0 No .25mL Common extract extract 03-31 [facility] 00:00: - [facility] 00 [facility] allergy allergy 2-0 No .25mL Common extract extract 03-31 [facility] 00:00: - [facility] 00 [facility] allergy allergy 2-0 No .25mL Common extract extract 03-31 [facility] 00:00: - [facility] 00 [facility] allergy allergy 2-0 No .25mL Common extract extract 03-31 [facility] 00:00: - [facility] 00 [facility] allergy allergy 2-0 No .25mL Common extract extract 03-31 [facility] 00:00: - [facility] 00 [facility] allergy allergy 2-0 No .25mL Common extract extract 03-31 [facility] 00:00: - [facility] 00 [facility] allergy allergy 2-0 No .25mL Common extract extract 03-31 [facility] 00:00: - [facility]I [facility] allergy allergy 2-0 No .25mL Common extract extract 03-31 [facility] 00:00: - [facility]I [facility] allergy allergy 2-0 No .25mL Common extract extract 03-31 [facility] 00:00: - [facility] 00 [facility] allergy allergy 2-0 No .25mL Common extract extract 03-31 [facility] 00:00: - [facility] 00 [facility] allergy allergy 2-0 No .2mL Common extract extract 03-24 [facility] 00:00: - [facility] 00 [facility] allergy allergy 2-0 No .2mL Common extract extract 14 [facility] 00:00: - [facility] 00 [facility] allergy allergy 2-0 No .2mL Common extract extract 03-24 [facility] 00:00: - [facility] 00 [facility] allergy allergy 2-0 No .2mL Common extract extract 14 [facility] 00[facility]00: - [facility] 00 [facility] allergy allergy 2-0 No .2mL Common extract extract 03-24 [facility] 00:00: - [facility] 00 [facility] allergy allergy 2-0 No .2mL Common extract extract 03-24 [facility] 00:00: - [facility] 00 [facility] allergy allergy 2-0 No .2mL Common extract extract 14 [facility] 00:00: - [facility] 00 [facility] allergy allergy 2-0 No .2mL Common extract extract -14 [facility] 00:00: - [facility] 00 [facility] allergy allergy 2-0 No .2mL Common extract extract -14 [facility] 00:00: - [facility] 00 [facility] allergy allergy 2-0 No .2mL Common extract extract -14 [facility] 00:00: - [facility] 00 [facility] allergy allergy 2-0 No .2mL Common extract extract -14 [facility] 00:00: - [facility] 00 [facility] allergy allergy 2-0 No .2mL Common extract extract -14 [facility] 00:00: - [facility] 00 [facility] allergy allergy 2-0 No .2mL Common extract extract 03-24 [facility] 00:00: - [facility] 00 [facility] allergy allergy 2021-0 No .2mL Common extract extract 03-24 [facility] 00:00: - [facility] 00 [facility] allergy allergy 2-0 No .2mL Common extract extract 03-24 [facility] 00:00: - [facility] 00 [facility] allergy allergy 2-0 No .2mL Common extract extract 03-24 [facility] 00:00: - [facility] 00 [facility] allergy allergy 2-0 No .2mL Common extract extract 03-24 [facility] 00:00: - [facility] 00 [facility] allergy allergy 2-0 No .2mL Common extract extract 03-24 [facility] 00:00: - [facility] 00 [facility] allergy allergy 2-0 No .2mL Common extract extract -14 [facility] 00:00: - [facility] 00 [facility] allergy allergy 2-0 No .2mL Common extract extract -14 [facility] 00:00: - [facility] 00 [facility] allergy allergy 2-0 No .2mL Common extract extract - [facility] 00:00: - [facility] 00 [facility] allergy allergy 2-0 No .2mL Common extract extract -14 [facility] 00:00: - [facility] 00 [facility] allergy allergy 2-0 No .2mL Common extract extract -14 [facility] 00:00: - [facility] 00 [facility] allergy allergy 2-0 No .2mL Common extract extract -14 [facility] 00:00: - [facility] 00 [facility] allergy allergy 2022-0 No .2mL Common extract extract 7-14 [facility] 00:00: - [facility] 00 [facility] allergy allergy 2-0 No .2mL Common extract extract -14 [facility] 00:00: - [facility] 00 [facility] allergy allergy 2-0 No .2mL Common extract extract -14 [facility] 00:00: - [facility] 00 [facility] allergy allergy 2-0 No .2mL Common extract extract -14 [facility] 00:00: - [facility] 00 [facility] allergy allergy 2-0 No .2mL Common extract extract - [facility] 00:00: - [facility] 00 [facility] allergy allergy 2-0 No .2mL Common extract extract - [facility] 00:00: - [facility] 00 [facility] allergy allergy 2-0 No .2mL Common extract extract 03-24 [facility] 00:00: - [facility] 00 [facility] allergy allergy 2-0 No .2mL Common extract extract 03-24 [facility] 00:00: - [facility] 00 [facility] allergy allergy 2-0 No .2mL Common extract extract 03-24 [facility] 00:00: - [facility] 00 [facility] allergy allergy 2-0 No .2mL Common extract extract 03-24 [facility] 00:00: - [facility] 00 [facility] allergy allergy 2-0 No .2mL Common extract extract 03-24 [facility] 00:00: - [facility] 00 [facility] allergy allergy 2-0 No .2mL Common extract extract 03-24 [facility] 00:00: - [facility] 00 [facility] allergy allergy 2-0 No .2mL Common extract extract - [facility] 00:00: - [facility] 00 [facility] allergy allergy 2-0 No .2mL Common extract extract - [facility] 00:00: - [facility] 00 [facility] allergy allergy 2-0 No .2mL Common extract extract - [facility] 00:00: - [facility] 00 [facility] allergy allergy 2-0 No .2mL Common extract extract -14 [facility] 00:00: - [facility] 00 [facility] allergy allergy 2-0 No .2mL Common extract extract -14 [facility] 00:00: - [facility] 00 [facility] allergy allergy 2-0 No .2mL Common extract extract 7-14 [facility] 00:00: - [facility] 00 [facility] allergy allergy 2-0 No .2mL Common extract extract -14 [facility] 00:00: - [facility] 00 [facility] allergy allergy 2-0 No .2mL Common extract extract -14 [facility] 00:00: - [facility] 00 [facility] allergy allergy 2-0 No .2mL Common extract extract -14 [facility] 00:00: - [facility] 00 [facility] allergy allergy 2-0 No .2mL Common extract extract -14 [facility] 00:00: - [facility] 00 [facility] allergy allergy 2-0 No .2mL Common extract extract - [facility] 00:00: - [facility] 00 [facility] allergy allergy 2-0 No .2mL Common extract extract 03-24 [facility] 00:00: - [facility] 00 [facility] allergy allergy 2-0 No .2mL Common extract extract 03-24 [facility] 00:00: - [facility] 00 [facility] allergy allergy 2-0 No .2mL Common extract extract 03-24 [facility] 00:00: - [facility] 00 [facility] allergy allergy 2-0 No .2mL Common extract extract - [facility] 00:00: - [facility] 00 [facility] allergy allergy 2-0 No .2mL Common extract extract 03-24 [facility] 00:00: - [facility] 00 [facility] allergy allergy 2-0 No .2mL Common extract extract 03-24 [facility] 00:00: - [facility] 00 [facility] allergy allergy 2-0 No .2mL Common extract extract -14 [facility] 00:00: - [facility] 00 [facility] allergy allergy 2-0 No .2mL Common extract extract -14 [facility] 00:00: - [facility] 00 [facility] allergy allergy 2-0 No .2mL Common extract extract -14 [facility] 00:00: - [facility] 00 [facility] allergy allergy 2-0 No .2mL Common extract extract -14 [facility] 00:00: - [facility] 00 [facility] allergy allergy 2-0 No .2mL Common extract extract -14 [facility] 00:00: - [facility] 00 [facility] allergy allergy 2-0 No .2mL Common extract extract -14 [facility] 00:00: - [facility] 00 [facility] allergy allergy 2-0 No .2mL Common extract extract -14 [facility] 00:00: - [facility] 00 [facility] allergy allergy 2-0 No .2mL Common extract extract -14 [facility] 00:00: - [facility] 00 [facility] allergy allergy 2-0 No .2mL Common extract extract - [facility] 00:00: - [facility] 00 [facility] allergy allergy 2-0 No .2mL Common extract extract 03-24 [facility] 00:00: - [facility] 00 [facility] allergy allergy 2-0 No .2mL Common extract extract 03-24 [facility] 00:00: - [facility] 00 [facility] allergy allergy 2-0 No .2mL Common extract extract 03-24 [facility] 00:00: - [facility] 00 [facility] allergy allergy 2-0 No .2mL Common extract extract 03-24 [facility] 00:00: - [facility] 00 [facility] allergy allergy 2-0 No .2mL Common extract extract 03-24 [facility] 00:00: - [facility] 00 [facility] allergy allergy 2-0 No .2mL Common extract extract 03-24 [facility] 00:00: - [facility] 00 [facility] allergy allergy 2-0 No .2mL Common extract extract 03-24 [facility] 00:00: - [facility] 00 [facility] allergy allergy 2-0 No .2mL Common extract extract 03-24 [facility] 00:00: - [facility] 00 [facility] allergy allergy 2-0 No .2mL Common extract extract - [facility] 00:00: - [facility] 00 [facility] allergy allergy 2-0 No .2mL Common extract extract - [facility] 00:00: - [facility] 00 [facility] allergy allergy 2-0 No .2mL Common extract extract 03-24 [facility] 00:00: - [facility] 00 [facility] allergy allergy 2-0 No .2mL Common extract extract - [facility] 00:00: - [facility] 00 [facility] allergy allergy 2-0 No .2mL Common extract extract - [facility] 00:00: - [facility] 00 [facility] allergy allergy 2-0 No .2mL Common extract extract - [facility] 00:00: - [facility] 00 [facility] allergy allergy 2022-0 No .2mL Common extract extract 03-24 [facility] 00:00: - [facility] 00 [facility] allergy allergy 2-0 No .2mL Common extract extract 03-24 [facility] 00:00: - [facility] 00 [facility] allergy allergy 2-0 No .15mL Common extract extract 03-17 [facility] 00:00: - [facility] 00 [facility] allergy allergy 2-0 No .15mL Common extract extract 03-17 [facility] 00:00: - [facility] 00 [facility] allergy allergy 2-0 No .15mL Common extract extract 03-17 [facility] 00:00: - [facility] 00 [facility] allergy allergy 2-0 No .15mL Common extract extract 03-17 [facility] 00:00: - [facility] 00 [facility] allergy allergy 2-0 No .15mL Common extract extract 03-17 [facility] 00:00: - [facility] 00 [facility] allergy allergy 2-0 No .15mL Common extract extract 03-17 [facility] 00:00: - [facility]I 00 [facility] allergy allergy 2-0 No .15mL Common extract extract 03-17 [facility] 00:00: - [facility]I 00 [facility] allergy allergy 2-0 No .15mL Common extract extract 03-17 [facility] 00:00: - [facility]I 00 [facility] allergy allergy 2-0 No .15mL Common extract extract 03-17 [facility] 00:00: - [facility]I 00 [facility] allergy allergy 2-0 No .15mL Common extract extract 03-17 [facility] 00:00: - [facility]I 00 [facility] allergy allergy 2-0 No .15mL Common extract extract 03-17 [facility] 00:00: - [facility]I 00 [facility] allergy allergy 2022-0 No .15mL Common extract extract 03-17 [facility] 00:00: - [facility]I 00 [facility] allergy allergy 2-0 No .15mL Common extract extract 03-17 [facility] 00:00: - [facility]I 00 [facility] allergy allergy 2-0 No .15mL Common extract extract 03-17 [facility] 00:00: - CHI 00 [facility] allergy allergy 2022-0 No .15mL Common extract extract 03-17 [facility] 00:00: - [facility]I 00 [facility] allergy allergy 2022-0 No .15mL Common extract extract 03-17 [facility] 00:00: - [facility]I 00 [facility] allergy allergy 2022-0 No .15mL Common extract extract 03-17 [facility] 00:00: - [facility]I 00 [facility] allergy allergy 2-0 No .15mL Common extract extract 03-17 [facility] 00:00: - [facility]I 00 [facility] allergy allergy 2-0 No .15mL Common extract extract 03-17 [facility] 00:00: - [facility]I 00 [facility] allergy allergy 2-0 No .15mL Common extract extract 03-17 [facility] 00:00: - [facility]I 00 [facility] allergy allergy 2-0 No .15mL Common extract extract 03-17 [facility] 00:00: - [facility]I 00 [facility] allergy allergy 2-0 No .15mL Common extract extract 03-17 [facility] 00:00: - [facility]I 00 [facility] allergy allergy 2-0 No .15mL Common extract extract 03-17 [facility] 00:00: - [facility]I 00 [facility] allergy allergy 2-0 No .15mL Common extract extract 03-17 [facility] 00:00: - [facility]I 00 [facility] allergy allergy 2-0 No .15mL Common extract extract 03-17 [facility] 00:00: - [facility]I 00 [facility] allergy allergy 2-0 No .15mL Common extract extract 03-17 [facility] 00:00: - [facility]I 00 [facility] allergy allergy 2-0 No .15mL Common extract extract 03-17 [facility] 00:00: - [facility]I 00 [facility] allergy allergy 2022-0 No .15mL Common extract extract 03-17 [facility] 00:00: - [facility]I 00 [facility] allergy allergy 2022-0 No .15mL Common extract extract 03-17 [facility] 00:00: - [facility]I 00 [facility] allergy allergy 2022-0 No .15mL Common extract extract 03-17 [facility] 00:00: - [facility]I 00 [facility] allergy allergy 2022-0 No .15mL Common extract extract 03-17 [facility] 00:00: - [facility]I 00 [facility] allergy allergy 2022-0 No .15mL Common extract extract 03-17 [facility] 00:00: - [facility]I 00 [facility] allergy allergy 2022-0 No .15mL Common extract extract 03-17 [facility] 00:00: - [facility]I 00 [facility] allergy allergy 2022-0 No .15mL Common extract extract 03-17 [facility] 00:00: - [facility]I 00 [facility] allergy allergy 2-0 No .15mL Common extract extract 03-17 [facility] 00:00: - [facility]I 00 [facility] allergy allergy 2-0 No .15mL Common extract extract 03-17 [facility] 00:00: - [facility]I 00 [facility] allergy allergy 2-0 No .15mL Common extract extract 03-17 [facility] 00:00: - [facility]I 00 [facility] allergy allergy 2-0 No .15mL Common extract extract 03-17 [facility] 00:00: - [facility]I 00 [facility] allergy allergy 2-0 No .15mL Common extract extract 03-17 [facility] 00:00: - [facility]I 00 [facility] allergy allergy 2-0 No .15mL Common extract extract 03-17 [facility] 00:00: - [facility]I 00 [facility] allergy allergy 2-0 No .15mL Common extract extract 03-17 [facility] 00:00: - [facility]I 00 [facility] allergy allergy 2-0 No .15mL Common extract extract 03-17 [facility] 00:00: - [facility]I 00 [facility] allergy allergy 2-0 No .15mL Common extract extract 03-17 [facility] 00:00: - [facility]I 00 [facility] allergy allergy 2-0 No .15mL Common extract extract 03-17 [facility] 00:00: - [facility]I 00 [facility] allergy allergy 2-0 No .15mL Common extract extract 03-17 [facility] 00:00: - [facility]I 00 [facility] allergy allergy 2022-0 No .15mL Common extract extract 03-17 [facility] 00:00: - [facility]I 00 [facility] allergy allergy 2-0 No .15mL Common extract extract 03-17 [facility] 00:00: - [facility]I 00 [facility] allergy allergy 2022-0 No .15mL Common extract extract 03-17 [facility] 00:00: - [facility]I 00 [facility] allergy allergy 2022-0 No .15mL Common extract extract 03-17 [facility] 00:00: - [facility]I 00 [facility] allergy allergy 2022-0 No .15mL Common extract extract 03-17 [facility] 00:00: - [facility]I 00 [facility] allergy allergy 2022-0 No .15mL Common extract extract 03-17 [facility] 00:00: - [facility]I 00 [facility] allergy allergy 2-0 No .15mL Common extract extract 03-17 [facility] 00:00: - [facility]I 00 [facility] allergy allergy 2-0 No .15mL Common extract extract 03-17 [facility] 00:00: - [facility]I 00 [facility] allergy allergy 2-0 No .15mL Common extract extract 03-17 [facility] 00:00: - [facility]I 00 [facility] allergy allergy 2-0 No .15mL Common extract extract 03-17 [facility] 00:00: - [facility]I 00 [facility] allergy allergy 2-0 No .15mL Common extract extract 03-17 [facility] 00:00: - [facility]I 00 [facility] allergy allergy 2-0 No .15mL Common extract extract 03-17 [facility] 00:00: - [facility]I 00 [facility] allergy allergy 2-0 No .15mL Common extract extract 03-17 [facility] 00:00: - [facility]I 00 [facility] allergy allergy 2-0 No .15mL Common extract extract 03-17 [facility] 00:00: - [facility]I 00 [facility] allergy allergy 2-0 No .15mL Common extract extract 03-17 [facility] 00:00: - [facility]I 00 [facility] allergy allergy 2-0 No .15mL Common extract extract 03-17 [facility] 00:00: - [facility]I 00 [facility] allergy allergy 2-0 No .15mL Common extract extract 03-17 [facility] 00:00: - [facility]I 00 [facility] allergy allergy 2-0 No .15mL Common extract extract 03-17 [facility] 00:00: - [facility]I 00 [facility] allergy allergy 2022-0 No .15mL Common extract extract 03-17 [facility] 00:00: - [facility]I 00 [facility] allergy allergy 2-0 No .15mL Common extract extract 03-17 [facility] 00:00: - [facility] 00 [facility] allergy allergy 2022-0 No .15mL Common extract extract 03-17 [facility] 00:00: - [facility]I 00 [facility] allergy allergy 2022-0 No .15mL Common extract extract 03-17 [facility] 00:00: - [facility]I 00 [facility] allergy allergy 2022-0 No .15mL Common extract extract 03-17 [facility] 00:00: - [facility]I 00 [facility] allergy allergy 2-0 No .15mL Common extract extract 03-17 [facility] 00:00: - [facility]I 00 [facility] allergy allergy 2-0 No .15mL Common extract extract 03-17 [facility] 00:00: - [facility]I 00 [facility] allergy allergy 2-0 No .15mL Common extract extract 03-17 [facility] 00:00: - [facility]I 00 [facility] allergy allergy 2-0 No .15mL Common extract extract 03-17 [facility] 00:00: - [facility]I 00 [facility] allergy allergy 2-0 No .15mL Common extract extract 03-17 [facility] 00:00: - [facility] 00 [facility] allergy allergy 2-0 No .15mL Common extract extract 03-17 [facility] 00:00: - [facility]I 00 [facility] allergy allergy 2-0 No .15mL Common extract extract 03-17 [facility] 00:00: - [facility] 00 [facility] allergy allergy 2-0 No .15mL Common extract extract 03-17 [facility] 00:00: - [facility]I 00 [facility] allergy allergy 2022-0 No .15mL Common extract extract 03-17 [facility] 00:00: - [facility]I 00 [facility] allergy allergy 2-0 No .15mL Common extract extract 03-17 [facility] 00:00: - [facility] 00 [facility] allergy allergy 2-0 No .15mL Common extract extract 03-17 [facility] 00:00: - [facility] 00 [facility] allergy allergy 2-0 No .15mL Common extract extract 03-17 [facility] 00:00: - [facility] 00 [facility] Montelukast Montelukast 2021-0 No 1{table QD Montelukas Sodium 10 Sodium 10 3-10 t} t Sodium MG MG 00:00: 10 MG 00 Montelukast Montelukast 2021-0 No 1{table QD Montelukas Sodium 10 Sodium 10 3-10 t} t Sodium MG MG 00:00: 10 MG 00 Montelukast Montelukast 2-0 No 1{table QD Montelukas Sodium 10 Sodium [...] MG 00:00: 10 MG 00 Montelukast Montelukast 0 No 1{table QD Montelukas Sodium 10 Sodium 10 3-10 t} t Sodium MG MG 00:00: 10 MG 00 Montelukast Montelukast 0 No 1{table QD Montelukas Sodium 10 Sodium 10 3-10 t} t Sodium MG MG 00:00: 10 MG 00 Montelukast Montelukast 2021-0 No 1{table QD Montelukas Sodium 10 Sodium 10 3-10 t} t Sodium MG MG 00:00: 10 MG 00 Montelukast Montelukast 0 No 1{table QD Montelukas Sodium 10 Sodium 10 3-10 t} t Sodium MG MG 00:00: 10 MG 00 Montelukast Montelukast 0 No 1{table QD Montelukas Sodium 10 Sodium 10 3-10 t} t Sodium MG MG 00:00: 10 MG 00 Montelukast Montelukast 0 No 1{table QD Montelukas Sodium 10 Sodium 10 3-10 t} t Sodium MG MG 00:00: 10 MG 00 Montelukast Montelukast 0 No 1{table QD Montelukas Sodium 10 Sodium 10 3-10 t} t Sodium MG MG 00:00: 10 MG 00 Montelukast Montelukast 0 No 1{table QD Montelukas Sodium 10 Sodium [...] MG 00:00: 25 MG 00 Losartan Losartan 2021-0 No 1{table QD Losartan Potassium Potassium 8-21 t} Potassium 25 MG 25 MG 00:00: 25 MG 00 Lyubov Kenalog 0 No 40mg Common (Triamcinol (Triamcinol 7-26 S pirit one) one) 00:00: - CHI 00 [facility] Kenalog Kenalog 0 No 40mg Common (Triamcinol (Triamcinol 7-26 S pirit one) one) 00:00: - CHI 00 [facility] Lyubov Kenalog 0 No 40mg Common (Triamcinol (Triamcinol 7-26 S pirit one) one) 00:00: - CHI 00 [facility] Kenjosh Kenalog 0 No 40mg Common (Triamcinol (Triamcinol 7-26 S pirit one) one) 00:00: - CHI 00 [facility] Kenjosh Kenalog 0 No 40mg Common (Triamcinol (Triamcinol 7-26 S pirit one) one) 00:00: - CHI 00 [facility] Kenjosh Kenalog 0 No 40mg Common (Triamcinol (Triamcinol 7-26 S pirit one) one) 00:00: - CHI 00 [facility] Kenjosh Kenalog 0 No 40mg Common (Triamcinol (Triamcinol 7-26 S pirit one) one) 00:00: - CHI 00 [facility] Kenjosh Kenalog 0 No 40mg Common (Triamcinol (Triamcinol 7-26 S pirit one) one) 00:00: - CHI 00 [facility] Kenalog Kenalog 0 No 40mg Common (Triamcinol (Triamcinol 7-26 S pirit one) one) 00:00: - CHI 00 [facility] Kenalog Kenalog 2020-0 No 40mg Common (Triamcinol (Triamcinol 7-26 S pirit one) one) 00:00: - CHI 00 [facility] Kenalog Kenalog 2020-0 No 40mg Common (Triamcinol (Triamcinol 7-26 S pirit one) one) 00:00: - CHI 00 [facility] Kenalog Kenalog 2020-0 No 40mg Common (Triamcinol (Triamcinol 7-26 S pirit one) one) 00:00: - CHI 00 [facility] Kenalog Kenalog 2020-0 No 40mg Common (Triamcinol (Triamcinol 7-26 S pirit one) one) 00:00: - CHI 00 [facility] Kenalog Kenalog 2020-0 No 40mg Common (Triamcinol (Triamcinol 7-26 S pirit one) one) 00:00: - CHI 00 [facility] Kenalog Kenalog 2020-0 No 40mg Common (Triamcinol (Triamcinol 7-26 S pirit one) one) 00:00: - CHI 00 [facility] Kenalog Kenalog 0 No 40mg Common (Triamcinol (Triamcinol 7-26 S pirit one) one) 00:00: - CHI 00 [facility] Kenalog Kenalog 0 No 40mg Common (Triamcinol (Triamcinol 7-26 S pirit one) one) 00:00: - CHI 00 [facility] Kenalog Kenalog 2020-0 No 40mg Common (Triamcinol (Triamcinol 7-26 S pirit one) one) 00:00: - CHI 00 [facility] Kenalog Kenalog 2020-0 No 40mg Common (Triamcinol (Triamcinol 7-26 S pirit one) one) 00:00: - CHI 00 [facility] Kenalog Kenalog 2020-0 No 40mg Common (Triamcinol (Triamcinol 7-26 S pirit one) one) 00:00: - CHI 00 [facility] Kenalog Kenalog 2020-0 No 40mg Common (Triamcinol (Triamcinol 7-26 S pirit one) one) 00:00: - CHI 00 [facility] Kenalog Kenalog 2020-0 No 40mg Common (Triamcinol (Triamcinol 7-26 S pirit one) one) 00:00: - CHI 00 [facility] Kenalog Kenalog 2021-0 No 40mg Common (Triamcinol (Triamcinol 7-26 S pirit one) one) 00:00: - CHI 00 [facility] Lyubov Kenalog 2020-0 No 40mg Common (Triamcinol (Triamcinol 7-26 S pirit one) one) 00:00: - CHI 00 [facility] Lyubov Kenalog 0 No 40mg Common (Triamcinol (Triamcinol 7-26 S pirit one) one) 00:00: - CHI 00 [facility] Lyubov Kenalog 0 No 40mg Common (Triamcinol (Triamcinol 7-26 S pirit one) one) 00:00: - CHI 00 [facility] Lyubov Kenjosh 0 No 40mg Common (Triamcinol (Triamcinol 7-26 S pirit one) one) 00:00: - CHI 00 [facility] Lyubov Kenjosh 0 No 40mg Common (Triamcinol (Triamcinol 7-26 S pirit one) one) 00:00: - CHI 00 [facility] Lyubov Kenjosh 2020-0 No 40mg Common (Triamcinol (Triamcinol 7-26 S pirit one) one) 00:00: - CHI 00 [facility] Lyubov Kenalog 2020-0 No 40mg Common (Triamcinol (Triamcinol 7-26 S pirit one) one) 00:00: - CHI 00 [facility] Lyubov Kenalog 2020-0 No 40mg Common (Triamcinol (Triamcinol 7-26 S pirit one) one) 00:00: - CHI 00 [facility] Lyubov Kenalog 2020-0 No 40mg Common (Triamcinol (Triamcinol 7-26 S pirit one) one) 00:00: - CHI 00 [facility] Lyubov Kenalog 2020-0 No 40mg Common (Triamcinol (Triamcinol 7-26 S pirit one) one) 00:00: - CHI 00 [facility] Lyubov Kenalog 2020-0 No 40mg Common (Triamcinol (Triamcinol 7-26 S pirit one) one) 00:00: - CHI 00 [facility] Kenalog Kenalog 0 No 40mg Common (Triamcinol (Triamcinol 7-26 S pirit one) one) 00:00: - CHI 00 [facility] Kenalog Kenalog 0 No 40mg Common (Triamcinol (Triamcinol 7-26 S pirit one) one) 00:00: - CHI 00 [facility] Kenalog Kenalog 2020-0 No 40mg Common (Triamcinol (Triamcinol 7-26 S pirit one) one) 00:00: - CHI 00 [facility] Kenalog Kenalog 2020-0 No 40mg Common (Triamcinol (Triamcinol 7-26 S pirit one) one) 00:00: - CHI 00 [facility] Kenalog Kenalog 0 No 40mg Common (Triamcinol (Triamcinol 7-26 S pirit one) one) 00:00: - CHI 00 [facility] Kenalog Kenalog 0 No 40mg Common (Triamcinol (Triamcinol 7-26 S pirit one) one) 00:00: - CHI 00 [facility] Kenjosh Kenalog 2020-0 No 40mg Common (Triamcinol (Triamcinol 7-26 S pirit one) one) 00:00: - CHI 00 [facility] Kenalog Kenalog 2020-0 No 40mg Common (Triamcinol (Triamcinol 7-26 S pirit one) one) 00:00: - CHI 00 [facility] Kenalog Kenalog 2020-0 No 40mg Common (Triamcinol (Triamcinol 7-26 S pirit one) one) 00:00: - CHI 00 [facility] Kenalog Kenalog 2020-0 No 40mg Common (Triamcinol (Triamcinol 7-26 S pirit one) one) 00:00: - CHI 00 [facility] Kenalog Kenalog 2020-0 No 40mg Common (Triamcinol (Triamcinol 7-26 S pirit one) one) 00:00: - CHI 00 [facility] Kenalog Kenalog 0 No 40mg Common (Triamcinol (Triamcinol 7-26 S pirit one) one) 00:00: - CHI 00 [facility] Kenalog Kenalog 2020-0 No 40mg Common (Triamcinol (Triamcinol 7-26 S pirit one) one) 00:00: - CHI 00 [facility] Kenalog Kenalog 2020-0 No 40mg Common (Triamcinol (Triamcinol 7-26 S pirit one) one) 00:00: - CHI 00 [facility] Kenalog Kenalog 0 No 40mg Common (Triamcinol (Triamcinol 7-26 S pirit one) one) 00:00: - CHI 00 [facility] Kenalog Kenalog 0 No 40mg Common (Triamcinol (Triamcinol 7-26 S pirit one) one) 00:00: - CHI 00 [facility] Kenalog Kenalog 0 No 40mg Common (Triamcinol (Triamcinol 7-26 S pirit one) one) 00:00: - CHI 00 [facility] Kenalog Kenalog 0 No 40mg Common (Triamcinol (Triamcinol 7-26 S pirit one) one) 00:00: - CHI 00 [facility] Kenalog Kenalog 2020-0 No 40mg Common (Triamcinol (Triamcinol 7-26 S pirit one) one) 00:00: - CHI 00 [facility] Kenalog Kenalog 2020-0 No 40mg Common (Triamcinol (Triamcinol 7-26 S pirit one) one) 00:00: - CHI 00 [facility] Kenalog Kenalog 2020-0 No 40mg Common (Triamcinol (Triamcinol 7-26 S pirit one) one) 00:00: - CHI 00 [facility] Kenalog Kenalog 2020-0 No 40mg Common (Triamcinol (Triamcinol 7-26 S pirit one) one) 00:00: - CHI 00 [facility] Kenalog Kenalog 2020-0 No 40mg Common (Triamcinol (Triamcinol 7-26 S pirit one) one) 00:00: - CHI 00 [facility] Lyubov Mcarthur No 40mg Common (Triamcinol (Triamcinol 7-26 S pirit one) one) 00:00: - CHI 00 [facility] Lyubov Mcarthur No 40mg Common (Triamcinol (Triamcinol 7-26 S pirit one) one) 00:00: - CHI 00 [facility] Lyubov Mcarthur No 40mg Common (Triamcinol (Triamcinol 7-26 S pirit one) one) 00:00: - [facility]I 00 [facility] Lyubov No 40mg Common (Triamcinol (Triamcinol 7-26 S pirit one) one) 00:00: - [facility]I 00 [facility] Lyubov No 40mg Common (Triamcinol (Triamcinol 7-26 S pirit one) one) 00:00: - CHI 00 [facility] Flonase Flonase 2018-09 Yes Na Gordon 2 spray in Common 2-11 each [facility] 00:00: nostril - [facility]I [facility] Lyrica Lyrica 2018-09 Yes Na Gordon 1 capsule C ommon 1-11 [facility] 00:00: - [facility]I [facility] esomeprazol 2018-09 Yes 20mg Q2D Take 20 [...] 0-[address] it-min 11:36: daily[facility] ([facility] 47 l IMMUNE PLUS ORAL) simethicone 2018-09 [...] 0-[address] it-min 11:36: daily. [facility]osp[facility] ([facility] 47 l IMMUNE PLUS ORAL) simethicone 2018-09 Yes 180mg Q6H Take 180 M ethodi (MYLICON,GA 0-[address] S-X) 125 mg 11:36: mouth Hospi ta capsule 47 every 6 l (six) hours as needed for flatulence . lidocaine 2018-09 Yes lidocaine Met hodi (XYLOCAINE) 0-10 5 % st 5 % 11:36: topical [facility]ospita ointment 47 ointment l ascorbic 2018-09 Yes QD Take by Method i acid/multiv 0-[address] it-min 11:36: daily. [facility]osp[facility] ([facility] 47 l IMMUNE PLUS ORAL) simethicone 2018-09 [...] day. l Takes in the evening rosuvastati 2018- Yes 5mg Q2D Take 5 mg M [...] Na Gordon 1 tablet Common at bedtime [facility] Meclizine Meclizine Yes Na Gordon 1 tablet Common HCl HCl as needed [facility] losartan losartan Yes Na Gordon one tab C ommon daily [facility] Flagyl Flagyl Yes Na Gordon 1 tablet Comm on [facility] Cipro Cipro Yes Na Gordon 1 tablet Common [facility] Aspirin 81 Aspirin 81 Yes Na Gordon 1 tablet Common [facility] Prilosec Prilosec Yes Na Gordon 1 tablet Common OTC OTC [facility] Metronidazo Metronidazo Yes Na Gordon 1 tablet Common le le [facility] Famotidine Famotidine No 1{table QD Famotidine [...] dose 2019-08-21 [facility]pleted [facility]:00 - [facility] Afluria single dose Afluria single dose 2019-08-21 Completed [facility] 09:17:00 [facility] Afluria single dose Afluria single dose 2019-08-21 Completed [facility] 09:17:00 - [facility] Afluria single dose Afluria single dose 2019-08-21 Completed [facility] 09:17:00 - [facility] Afluria single dose Afluria single dose 2019-08-21 Completed [facility] 09:17:00 - [facility] Afluria single dose Afluria single dose 2019-08-21 Completed [facility] 09:17:00 - [facility] Afluria single dose Afluria single dose 2019-08-21 Completed [facility] 09:17:00 - [facility] Afluria single dose Afluria single dose 2019-08-21 Completed [facility] 09:17:00 - [facility] Afluria single dose Afluria single dose 2019-08-21 Completed [facility] 09:17:00 - [facility] Afluria single dose Afluria single dose 2019-08-21 Completed [facility] 09:17:00 - [facility] Afluria single dose Afluria single dose 2019-08-21 Completed [facility] 09:17:00 - [facility] Afluria single dose Afluria single dose 2019-08-21 Completed [facility] 09:17:00 - [facility] Afluria single dose Afluria single dose 2019-08-21 Completed [facility] 09:17:00 - [facility] Afluria single dose Afluria single dose 2019-08-21 Completed [facility] 09:17:00 - [facility] Afluria single dose Afluria single dose 2019-08-21 Completed [facility] 09:17:00 - [facility] Afluria single dose Afluria single dose 2019-08-21 Completed [facility] 09:17:00 [facility] Afluria single dose Afluria single dose 2019-08-21 Completed [facility] 09:17:00 - [facility] Afluria single dose Afluria single dose 2019-08-21 Completed [facility] 09:17:00 - [facility] Afluria single dose Afluria single dose 2019-08-21 Completed [facility] 09:17:00 - [facility] Afluria single dose Afluria single dose 2019-08-21 Completed [facility] 09:17:00 - [facility] Afluria single dose Afluria single dose 2019-08-21 Completed [facility] 09:17:00 - [facility] Afluria single dose Afluria single dose 2019-08-21 Completed [facility] 09:17:00 - [facility] Afluria single dose Afluria single dose 2019-08-21 Completed [facility] 09:17:00 - [facility] Afluria single dose Afluria single dose 2019-08-21 Completed [facility] 09:17:00 - [facility] Afluria single dose Afluria single dose 2019-08-21 Completed [facility] 09:17:00 - [facility] Afluria single dose Afluria single dose 2019-08-21 Completed [facility] 09:17:00 - [facility] Afluria single dose Afluria single dose 2019-08-21 Completed [facility] 09:17:00 - [facility] Afluria single dose Afluria single dose 2019-08-21 Completed [facility] 09:17:00 - [facility] Afluria single dose Afluria single dose 2019-08-21 Completed [facility] 09:17:00 - [facility] Afluria single dose Afluria single dose 2019-08-21 Completed [facility] 09:17:00 - [facility] Afluria single dose Afluria single dose 2019-08-21 Completed [facility] 09:17:00 - [facility] Afluria single dose Afluria single dose 2019-08-21 Completed [facility] 09:17:00 - [facility] Afluria single dose Afluria single dose 2019-08-21 Completed [facility] 09:17:00 - [facility] Afluria single dose Afluria single dose 2019-08-21 Completed [facility] 09:17:00 - [facility] Afluria single dose Afluria single dose 2019-08-21 Completed [facility] 09:17:00 - [facility] Afluria single dose Afluria single dose 2019-08-21 Completed [facility] 09:17:00 - [facility] Afluria single dose Afluria single dose 2019-08-21 Completed [facility] 09:17:00 - [facility] Afluria single dose Afluria single dose 2019-08-21 Completed [facility] 09:17:00 [facility] Afluria single dose Afluria single dose 2019-08-21 Completed [facility] 09:17:00 - [facility] Afluria single dose Afluria single dose 2019-08-21 Completed [facility] 09:17:00 - [facility] Afluria single dose Afluria single dose 2019-08-21 Completed [facility] 09:17:00 - [facility] Afluria single dose Afluria single dose 2019-08-21 Completed [facility] 09:17:00 - [facility] Afluria single dose Afluria single dose 2019-08-21 Completed [facility] 09:17:00 - [facility] Afluria single dose Afluria single dose 2019-08-21 Completed [facility] 09:17:00 - [facility] Afluria single dose Afluria single dose 2019-08-21 Completed [facility] 09:17:00 - [facility] Afluria single dose Afluria single dose 2019-08-21 Completed [facility] 09:17:00 - [facility] Afluria single dose Afluria single dose 2019-08-21 Completed [facility] 09:17:00 - [facility] Afluria single dose Afluria single dose 2019-08-21 Completed [facility] 09:17:00 - [facility] Afluria single dose Afluria single dose 2019-08-21 Completed [facility] 09:17:00 - [facility] Afluria single dose Afluria single dose 2019-08-21 Completed [facility] 09:17:00 - [facility] Afluria single dose Afluria single dose 2019-08-21 Completed [facility] 09:17:00 - [facility] Afluria single dose Afluria single dose 2019-08-21 Completed [facility] 09:17:00 [facility] Afluria single dose Afluria single dose 2019-08-21 Completed [facility] 09:17:00 - [facility] Afluria single dose Afluria single dose 2019-08-21 Completed [facility] 09:17:00 - [facility] Afluria single dose Afluria single dose 2019-08-21 Completed [facility] 09:17:00 [facility] Afluria single dose Afluria single dose 2019-08-21 Completed [facility] 09:17:00 [facility] Afluria single dose Afluria single dose 2019-08-21 Completed [facility] 09:17:00 - [facility] Afluria single dose Afluria single dose 2019-08-21 Completed [facility] 09:17:00 [facility] Afluria single dose Afluria single dose 2019-08-21 Completed [facility] 09:17:00 [facility] Afluria single dose Afluria single dose 2019-08-21 Completed [facility] 09:17:00 - [facility] Afluria single dose Afluria single dose 2019-08-21 Completed [facility] 09:17:00 - [facility] Afluria single dose Afluria single dose 2019-08-21 Completed [facility] 09:17:00 [facility] Afluria single dose Afluria single dose 2019-08-21 Completed [facility] 00:00:00 [facility] Vital Signs Vital Name Observation Time Observation Value Comments Source height 2022-08-22 09:20:00 70 [in_i] [facility] weight 2022-08-22 09:20:00 188.2 [lb_av] [facility] temperature 2022-08-22 09:20:00 98.2 [degF] [facility] bmi 2022-08-22 09:20:00 27.00 kg/m2 [facility] oximetry 2022-08-22 09:20:00 97 % [facility] respiratory rate 2022-08-22 09:20:00 16 /min Comm on [facility] blood pressure 2022-08-22 09:20:00 125 mm[Hg] [facility] systolic [facility] blood pressure 2022-08-22 09:20:00 83 mm[Hg] [facility] diastolic [facility] height 2022-08-18 09:00:00 70 [in_i] [facility] weight 2022-08-18 09:00:00 190.1 [lb_av] [facility] temperature 2022-08-18 09:00:00 98.6 [degF] [facility] bmi 2022-08-18 09:00:00 27.27 kg/m2 [facility] oximetry 2022-08-18 09:00:00 99 % [facility] respiratory rate 2022-08-18 09:00:00 15 /min Comm on [facility] blood pressure 2022-08-18 09:00:00 128 mm[Hg] [facility] systolic [facility] blood pressure 2022-08-18 09:00:00 75 mm[Hg] [facility] diastolic [facility] height 2022-05-27 16:40:00 70 [in_i] [facility] weight 2022-05-27 16:40:00 190 [lb_av] [facility] bmi 2022-05-27 16:40:00 27.26 kg/m2 [facility] height 2022-05-26 08:20:00 70 [in_i] [facility] weight 2022-05-26 08:20:00 171 [lb_av] [facility] temperature 2022-05-26 08:20:00 97.9 [degF] [facility] bmi 2022-05-26 08:20:00 24.53 kg/m2 [facility] oximetry 2022-05-26 08:20:00 99 % [facility] respiratory rate 2022-05-26 08:20:00 15 /min Comm on [facility] blood pressure 2022-05-26 08:20:00 120 mm[Hg] Common [facility] - systolic [facility] blood pressure 2022-05-26 08:20:00 80 mm[Hg] Common [facility] - diastolic [facility] height 2021-11-18 15:30:00 70 [in_i] Common [facility] weight 2021-11-18 15:30:00 192 [lb_av] Common [facility] temperature 2021-11-18 15:30:00 97.1 [degF] Common [facility] bmi 2021-11-18 15:30:00 27.55 kg/m2 [facility] oximetry 2021-11-18 15:30:00 98 % [facility] respiratory rate 2021-11-18 15:30:00 16 /min Comm on [facility] blood pressure 2021-11-18 15:30:00 122 mm[Hg] Common [facility] - systolic [facility] blood pressure 2021-11-18 15:30:00 88 mm[Hg] Common [facility] - diastolic [facility] height 2021-11-04 15:00:00 70 [in_i] Common [facility] weight 2021-11-04 15:00:00 195.2 [lb_av] [facility] temperature 2021-11-04 15:00:00 97.9 [degF] Common [facility] bmi 2021-11-04 15:00:00 28.01 kg/m2 Common [facility] oximetry 2021-11-04 15:00:00 97 % Common [facility] respiratory rate 2021-11-04 15:00:00 18 /min Comm on [facility] blood pressure 2021-11-04 15:00:00 114 mm[Hg] Common [facility] - systolic [facility] blood pressure 2021-11-04 15:00:00 80 mm[Hg] Common [facility] - diastolic [facility] Procedures Procedure Date / Time Performed Performing Clinician [facility] e [id number] 2020-08-25 00:00:00 NIKKO [facility] [id number] 2020-08-25 00:00:00 NIKKO [facility] [id number] 2020-08-25 00:00:00 NIKKO [facility] Plan of Care Planned Activity Planned Date Details Comments Source Future Scheduled 2023 Screening [facility] Test 13:50:53 malignant neoplasm of colon (procedure) [code = 771345031] Future Scheduled 2023 Screening for [facility] Test 13:50:53 malignant neoplasm of colon (procedure) [code = 829313260] Future Scheduled 2023 Screening for [facility] Test 13:50:53 malignant neoplasm of colon (procedure) [code = 186237242] Future Scheduled 2023 COVID-19 VACCINE (#1) [facility] Test 13:50:53 [code = COVID-19 VACCINE (#1)] Future Scheduled 2023 Screening for [facility] Test 13:50:53 malignant neoplasm of colon (procedure) [code = 505953476] Future Scheduled 2023 Screening for [facility] Test 13:50:53 malignant neoplasm of colon (procedure) [code = 848674521] Future Scheduled 2023 SHINGLES VACCINES (1 Met [facility] Test 13:50:53 of 2) [code = SHINGLES VACCINES (1 of 2)] Future Scheduled 2023 INFLUENZA VACCINE Method [facility] Test 13:50:53 [code = INFLUENZA VACCINE] Future Scheduled 2022-09-29 COVID-19 VACCINE (#1) [facility] Test 09:05:10 [code = COVID-19 VACCINE (#1)] Future Scheduled 2022-09-29 COLONOSCOPY SCREENING [facility] Test 09:05:10 [code = COLONOSCOPY SCREENING] Future Scheduled 2022-09-29 INFLUENZA VACCINE Method [facility] Test 09:05:10 [code = INFLUENZA VACCINE] Future Scheduled 2022-05-19 HEPATITIS B VACCINES Met [facility] Test 08:26:15 (1 of 3 - 3-dose series) [code = HEPATITIS B VACCINES (1 of 3 - 3-dose series)] Future Scheduled 2022-05-19 COVID-19 VACCINE (#1) [facility] Test 08:26:15 [code = COVID-19 VACCINE (#1)] Future Scheduled 2022-05-19 [facility] C [facility] Test 08:26:15 (procedure) [code = 447914580] Future Scheduled 2022-05-19 COLONOSCOPY SCREENING [facility] Test 08:26:15 [code = COLONOSCOPY SCREENING] Future Scheduled 2022-05-19 INFLUENZA VACCINE [facility] Test 08:26:15 [code = INFLUENZA VACCINE] Future Scheduled COVID-19 VACCINE (1) Met [facility] Test [code = COVID-19 VACCINE (1)] Future Scheduled Hepatitis C screening [facility] Test (procedure) [code = 085558457] Future Scheduled INFLUENZA VACCINE [facility] Test [code = INFLUENZA VACCINE] Encounters Start End Encounter Admission Attending Care Care Encounter Source Date/Time Date/Time Type Type Clinicians Facility Department ID 2023-01-13 [facility] [id number] Common 14:40:00 Avnee [id number] [facility] 2023-01-12 Outpatient Srinivasan, STLMLC ST[facility] [id number] Common 07:44:00 Avnee [id number] [facility] 2022-12-29 Outpatient Srinivasan, STLMLC [facility] [id number] Common 10:58:00 Avnee [id number] [facility] 2022-12-27 Outpatient Srinivasan, STLMLC [facility] [id number] Common 16:35:00 Avnee [id number] [facility] 2022-12-15 Outpatient Srinivasan, STLMLC STLC [id number] Common 15:17:00 Avnee [id number] [facility] 2022-11-17 Outpatient Ivette, STLMLC STLC [id number] Common 10:15:00 Radha [id number] [facility] 2022-10-27 Outpatient Hanh [facility] [id number] 2 Common 10:59:00 [id number] [facility] 2022-10-24 Outpatient GORDON, Na STLMLC STLMLC [id number] 2 Common 13:17:01 [id number] [facility] 2022-09-29 Outpatient GORDON, Na STLMLC STLMLC [id number] 2 Common 09:23:01 [id number] [facility] 2022-08-22 Outpatient Gordon, Na STLMLC STLMLC [id number] 2 Common 10:07:00 [facility] 2022-08-18 Outpatient Gordon, Na STLMLC STLMLC [id number] 2 Common 10:01:00 [facility] 2022-05-25 Outpatient Gordon, Na STLMLC STLMLC [id number] 2 Common 10:07:01 [facility] 2022-05-11 Outpatient Gordon, Na STLMLC STLMLC [id number] 2 Common 10:06:00 [id number] [facility] 2022-03-16 Outpatient Gordon, Na STLMLC STLMLC [id number] Common 14:14:00 [facility] 2022-02-01 Outpatient Gordon, Na STLMLC STLMLC [id number] Common 08:59:00 [facility] 2022-01-31 Outpatient [facility] [id number] [place] 16:33:12 [id number] [facility] 2022-01-28 Outpatient Gordon, Na STLMLC STLMLC [id number] 2 Common 08:06:01 [facility] 2021-10-06 Outpatient Gordon, Na STLMLC STLMLC [id number] 2 Common 13:29:51 [id number] [facility] 2021-10-06 Outpatient Gordon, Na STLMLC STLMLC [id number] 2 Common 12:06:19 [id number] [facility] 2021-10-06 Outpatient Gordon, Na STLMLC STLMLC [id number] 2 Common 11:39:51 [id number] [facility] 2021-10-06 Outpatient Gordon, Na STLMLC STLMLC [id number] 2 Common 11:10:16 [id number] [facility] 2020-09-18 Inpatient FRANSISCA Bennett [facility] MED [id number] [facility] 18:51:00 Dwayne Garcia [facility] 2020-08-25 Inpatient Pawan Baum [facility] DAYS [id number] [facility] 07:00:00 84 [facility] 2022-10-20 2022-10-20 (INJ) STLMLC STLMLC [id number] Co mmon 00:00:00 00:00:00 Injection Spir [facility] 2022-10-13 2022-10-13 (NV) Nurse STLMLC STLMLC [id number] Common 00:00:00 00:00:00 Visit [facility] 2022-10-06 2022-10-06 (NV) Nurse STLMLC STLMLC [id number] Common 00:00:00 00:00:00 Visit [facility] 2022-09-29 2022-09-29 (INJ) STLMLC STLMLC [id number] Co mmon 00:00:00 00:00:00 Injection Spir [facility] 2022-09-28 2022-09-28 (TEL) STLMLC STLMLC [id number] Co mmon 00:00:00 00:00:00 [facility] 2022-09-22 2022-09-22 (INJ) STLMLC STLMLC [id number] Co mmon 00:00:00 00:00:00 Injection Spir [facility] 2022-09-15 2022-09-15 (INJ) STLMLC STLMLC [id number] Co mmon 00:00:00 00:00:00 Injection Spir [facility] 2022-09-08 2022-09-08 (INJ) STLMLC STLMLC [id number] Co mmon 00:00:00 00:00:00 Injection Spir [facility] 2022-09-01 2022-09-01 (INJ) STLMLC STLMLC [id number] Co mmon 00:00:00 00:00:00 Injection Spir it [facility] 2022-08-25 2022-08-25 (INJ) STLMLC STLMLC [id number] Co mmon 00:00:00 00:00:00 Injection Spir [facility] 2022-08-22 2022-08-22 OFFICE STLMLC STLMLC [id number] Co mmon 00:00:00 00:00:00 VISIT [facility] LEVEL 4 [facility] 2022-08-18 2022-08-18 (INJ) STLMLC STLMLC [id number] Co mmon 00:00:00 00:00:00 Injection Spir [facility] 2022-08-11 2022-08-11 (INJ) STLMLC STLMLC [id number] Co mmon 00:00:00 00:00:00 Injection Spir [facility] 2022-08-02 2022-08-02 (INJ) STLMLC STLMLC [id number] Co mmon 00:00:00 00:00:00 Injection Spir [facility] 2022-07-28 2022-07-28 (NV) Nurse STLMLC STLMLC [id number] Common 00:00:00 00:00:00 Visit [facility] 2022-07-21 2022-07-21 (NV) Nurse STLMLC STLMLC [id number] Common 00:00:00 00:00:00 Visit [facility] 2022-07-14 2022-07-14 (NV) Nurse STLMLC STLMLC [id number] Common 00:00:00 00:00:00 Visit [facility] 2022-07-07 2022-07-07 (INJ) STLMLC STLMLC [id number] Co mmon 00:00:00 00:00:00 Injection Spir [facility] 2022-06-30 2022-06-30 (TEL) STLMLC STLMLC [id number] Co mmon 00:00:00 00:00:00 [facility] 2022-06-30 2022-06-30 (NV) Nurse STLMLC STLMLC [id number] Common 00:00:00 00:00:00 Visit [facility] 2022-06-23 2022-06-23 (NV) Nurse STLMLC STLMLC [id number] Common 00:00:00 00:00:00 Visit [facility] 2022-06-16 2022-06-16 (NV) Nurse STLMLC STLMLC [id number] Common 00:00:00 00:00:00 Visit [facility] 2022-06-09 2022-06-09 (NV) Nurse STLMLC STLMLC [id number] Common 00:00:00 00:00:00 Visit [facility] 2022-05-27 2022-05-27 OFFICE STLMLC STLMLC [id number] Co mmon 00:00:00 00:00:00 VISIT EST Spir it PT LEVEL 3 [facility] 2022-05-26 2022-05-26 OFFICE STLMLC STLMLC [id number] Co mmon 00:00:00 00:00:00 VISIT [facility] PT [facility] LEVEL 2 [facility] 2022-05-19 2022-05-19 (NV) Nurse STLMLC STLMLC [id number] Common 00:00:00 00:00:00 Visit [facility] 2022-05-12 2022-05-12 (INJ) STLMLC STLMLC [id number] Co mmon 00:00:00 00:00:00 Injection Spir [facility] 2022-05-05 2022-05-05 (INJ) STLMLC STLMLC [id number] Co mmon 00:00:00 00:00:00 Injection Spir it [facility] 2022-04-28 2022-04-28 (INJ) STLMLC STLMLC [id number] Co mmon 00:00:00 00:00:00 Injection Spir it [facility] 2022-04-21 2022-04-21 (INJ) STLMLC STLMLC [id number] Co mmon 00:00:00 00:00:00 Injection Spir it [facility] 2022-04-19 2022-04-19 (TEL) STLMLC STLMLC [id number] Co mmon 00:00:00 00:00:00 [facility] 2022-04-14 2022-04-14 (INJ) STLMLC STLMLC [id number] Co mmon 00:00:00 00:00:00 Injection Spir it [facility] 2022-04-07 2022-04-07 (NV) Nurse STLMLC STLMLC [id number] Common 00:00:00 00:00:00 Visit [facility] 2022-03-31 2022-03-31 (NV) Nurse STLMLC STLMLC [id number] Common 00:00:00 00:00:00 Visit [facility] 2022-03-24 2022-03-24 (NV) Nurse STLMLC STLMLC [id number] Common 00:00:00 00:00:00 Visit [facility] 2022-03-17 2022-03-17 (INJ) STLMLC STLMLC [id number] Co mmon 00:00:00 00:00:00 Injection Spir [facility] 2022-03-09 2022-03-09 (TEL) STLMLC STLMLC [id number] Co mmon 00:00:00 00:00:00 [facility] 2022-03-08 2022-03-08 (TEL) STLMLC STLMLC [id number] Co mmon 00:00:00 00:00:00 [facility] 2022-03-08 2022-03-08 OFFICE STLMLC STLMLC [id number] Co mmon 00:00:00 00:00:00 VISIT EST Spir it PT LEVEL 3 [facility] 2022-03-03 2022-03-03 (INJ) STLMLC STLMLC [id number] Co mmon 00:00:00 00:00:00 Injection Spir it [facility] 2022-02-17 2022-02-17 (INJ) STLMLC STLMLC [id number] Co mmon 00:00:00 00:00:00 Injection Spir it [facility] 2022-02-10 2022-02-10 (NV) Nurse STLMLC STLMLC [id number] Common 00:00:00 00:00:00 Visit [facility] 2022-02-03 2022-02-03 (INJ) STLMLC STLMLC [id number] Co mmon 00:00:00 00:00:00 Injection Spir [facility] 2022-01-27 2022-01-27 (INJ) STLMLC STLMLC [id number] Co mmon 00:00:00 00:00:00 Injection Spir [facility] 2022-01-20 2022-01-20 (INJ) STLMLC STLMLC [id number] Co mmon 00:00:00 00:00:00 Injection Spir [facility] 2022-01-13 2022-01-13 (INJ) STLMLC STLMLC [id number] Co mmon 00:00:00 00:00:00 Injection Spir [facility] 2022-01-06 2022-01-06 (INJ) STLMLC STLMLC [id number] Co mmon 00:00:00 00:00:00 Injection Spir [facility] 2021-12-30 2021-12-30 (INJ) STLMLC STLMLC [id number] Co mmon 00:00:00 00:00:00 Injection Spir [facility] 2021-12-23 2021-12-23 (INJ) STLMLC STLMLC [id number] Co mmon 00:00:00 00:00:00 Injection Spir [facility] 2021-12-16 2021-12-16 (INJ) STLMLC STLMLC [id number] Co mmon 00:00:00 00:00:00 Injection Spir [facility] 2021-12-09 2021-12-09 (INJ) STLMLC STLMLC [id number] Co mmon 00:00:00 00:00:00 Injection Spir [facility] 2021-12-07 2021-12-07 Travel 1.2.840.1 1.2.989.792 [id number] Methodi 00:00:00 00:00:[address] 3.430.2.7 0.2.7.3.698 [facility] .3.355197 084.8 l .8 2021-12-02 2021-12-02 (TEL) STLMLC STLMLC [id number] Co mmon 00:00:00 00:00:00 [facility] 2021-12-02 2021-12-02 (NV) Nurse STLMLC STLMLC [id number] Common 00:00:00 00:00:00 Visit [facility] 2021-12-02 2021-12-02 Telephone Elias, 1.2.840.7 [id number] Methodi 00:00:00 00:00:[address] 3.430.2.7 Hospit a .3.915519 l .8 2021-11-22 2021-11-22 (TEL) STLMLC STLMLC [id number] Co mmon 00:00:00 00:00:00 [facility] 2021-11-22 2021-11-22 (NV) Nurse STLMLC STLMLC [id number] Common 00:00:00 00:00:00 Visit [facility] 2021-11-18 2021-11-18 OFFICE STLMLC STLMLC [id number] Co mmon 00:00:00 00:00:00 VISIT [facility] PT [facility] LEVEL 2 [facility] 2021-11-04 2021-11-04 PREV VISIT STLMLC STLMLC [id number] Common 00:00:00 00:00:00 EST AGE [facility] 40-64 - [facility] 2021-11-04 2021-11-04 (TEL) STLMLC STLMLC [id number] Co mmon 00:00:00 00:00:00 [facility] 2021-05-05 2021-05-05 Outpatient STLMLC STLMLC [id number] Common 00:00:00 00:00:00 [facility] 2021-04-30 2021-04-30 Outpatient STLMLC STLMLC [id number] Common 00:00:00 00:00:00 [facility] 2021-04-05 2021-04-05 Outpatient STLMLC STLMLC [id number] Common 00:00:00 00:00:00 [facility] 2020-08-25 2020-08-25 Outpatient Pawan Baum [facility] REF [id number] [facility] 20:30:00 20:30:[address] [place] [address] 2020-08-11 2020-08-11 Orders Alahyacinthrusa 1.2.840.1 [id number] Methodi 00:00:00 00:00:00 Only my, 79102.1.1 4 [facility] 3.430.2.7 Hospi ta [place] .3.684665 l .8 2020-05-02 2020-05-02 [facility] [id number] Common 17:59:00 17:59:00 [place] [address] [facility] 2020-04-30 2020-04-30 [facility] [id number] Common 13:40:00 13:40:00 [place] [address] [facility] 2019-11-05 2019-11-05 [facility] [id number] Common 16:05:00 16:05:00 [place] [address] [facility] 2019-08-21 2019-08-21 [facility] [id number] Common 08:00:00 08:00:00 [place] [address] [facility] 2019-07-22 2019-07-22 [facility] [id number] Common 16:20:00 16:20:00 [place] [address] [facility] 2019-01-07 2019-01-07 [facility] [id number] Common 10:00:00 10:00:00 [place] [address] [facility] 2018-12-27 2018-12-27 [facility] [id number] Common 16:47:00 16:47:[address] [facility] Results Test Description Test Time Test Comments Results Result Comments Source SARS-COV-2(COVID19),NAAT 2022-03-08 00:00:00 Test Item Value Reference Range Interpretation Comme nts SARS-CoV-2 INTERPRETATION (test code = 94176-6) POSITIVE SEE NO TE A SOURCE (test code = 54971-6) NASOPHARYNGEAL CBC W/AUTO [id number] 07:30:00 Test Item Value Reference Range Interpretation [...] 0.08 x10 3/uL 0.0-0.20 N BASIC METABOLIC [id number] 05:09:00 Test Item Value Reference Range Interpretation [...] mg/dL 8.8-10.2 L = CA) BASIC METABOLIC [id number] 04:45:00 Test Item Value Reference Range Interpretation [...] code 8.4 mg/dL 8.8-10.2 L = CA) [id number] 04:45:00 Test Item Value Reference Range Interpretation Comments PHOSPHOROUS (test code = PHOS) 2.6 mg/dL 2.7-4.5 L [id number] 04:45:00 Test Item Value Reference Range Interpretation Comments MAGNESIUM (test code = MAG) 2.0 mg/dL 1.4-2.6 N CBC W/AUTO [id number] 04:26:00 Test Item Value Reference Range Interpretation [...] = BA#) 0.06 x10 3/uL 0.0-0.20 N [id number] 16:55:00 Test Item Value Reference Range Interpretation Comments GLUBED (test code = GLUBED) 89 MG/DL 70-105 N [id number] 12:41:00 Test Item Value Reference Range Interpretation Comments GLUBED (test code = GLUBED) 78 MG/DL 70-105 N - CT ABD PELVIS [id number] 12:29:00 [facility] 1975 Sex: MPatient Name: VALERI BENJAMIN Unit No: [id number] EXAMS: CPT CODE: [id number] CT ABD PELVIS W/CONT [address]7310 CT Abdomen and Pelvis with contrast. Location: [...] within its mid aspect, with some associated extraluminalair and inflammatory stranding. There is no organized abscess at this location. 2. 4 cm collection of nonorganized fluid between the rectum and seminal vesicles. This may be phlegmon or hematoma. Follow-up may be of benefit. at 1229 Reported and signed by: Nikita Garcia MD Name: VALERI BENJAMIN [facility] Phys: Arleen Ramirez DO [address] DOB: 1975 Age: 45 Sex: [place] [id number] Loc: P.0719 1 Exam Date: 09/19/2020 Status: ADM IN PH: FAX: PAGE 1 Signed Report (CONTINUED) Patient Name: VALERI BENJAMIN Unit No: [id number] EXAMS: CPT CODE: [id number] CT ABD PELVIS W/CONT 70631 (Continued) CC: Arleen Charles DO; Hanh Gordon DO; Dwayne Bennett MD Technologist: ADDISON Porras(Chiki)(CT) CTDI: 13.01 DLP: 685 Trscr Dt/Tm: 09/19/2020 (1229) by:[email or web address] Printed Date/Time: 09/19/2020 (5442) Name: VALERI BENJAMIN [facility]E [facility] Phys: Arleen Ramirez DO [address] DOB: 1975 Age: 45 Sex: [place] [phone] Loc: [id number] 1 Exam Date: 09/19/2020 Status: ADM IN PH: FAX: PAGE 2 Signed [id number] 08:24:00 Test Item Value Reference Range Interpretation Comments GLUBED (test code = GLUBED) 77 MG/DL 70-105 N CBC W/MANUAL [id number] 06:03:00 Test Item Value Reference Range Interpretation [...] code NORMAL NORMAL = PLTMORPH) BASIC METABOLIC [id number] 04:15:00 Test Item Value Reference Range Interpretation [...] code 8.5 mg/dL 8.8-10.2 L = CA) [id number] 04:15:00 Test Item Value Reference Range Interpretation Comments PHOSPHOROUS (test code = PHOS) 3.1 mg/dL 2.7-4.5 N [id number] 04:15:00 Test Item Value Reference Range Interpretation Comments MAGNESIUM (test code = MAG) 2.0 mg/dL 1.4-2.6 N CBC W/MANUAL [id number] 03:22:00 Test Item Value Reference Range Interpretation [...] code = LYMPH) % 20-40 CBC W/MANUAL [id number] 03:22:00 Test Item Value Reference Range Interpretation [...] code = LYMPH) % 20-40 BASIC METABOLIC [id number] 06:29:00 Test Item Value Reference Range Interpretation [...] code 8.4 mg/dL 8.8-10.2 L = CA) [id number] 06:29:00 Test Item Value Reference Range Interpretation Comments MAGNESIUM (test code = MAG) 2.1 mg/dL 1.4-2.6 N CBC W/AUTO [id number] 05:39:00 Test Item Value Reference Range Interpretation [...] BA#) 0.08 x10 3/uL 0.0-0.20 N SURGICAL [id number] 15:39:00 Test Item Value Reference Range Interpretation Comments SURGICAL SPECIMENS (test code = SURG) RUN DATE: 08/26/20 [facility] - LAB PAGE 1 RUN TIME: 1538 Specimen Inquiry RUN USER: INTERFACE PATIENT: VALERI BENJAMIN LOC: P6 POD B U #: [id number] AGE/SX: 45/M ROOM: [facility] RE08/25/20[facility] DR: Pawan Baum MD : 73 BED: 1 DIS: STATUS: ADM IN TLOC: SPEC #: [id number] RECD: 08/25/20 STATUS: NIMA REQ #: [id number] MUSTAPHA: 08/25/[address]: Pawan Baum MD ENTERED: 08/25/20 SP TYPE: SURG OTHR DR: Boo Olsen MD, Na Ly DOORDERED: PATHGM5, PATH SPEC, H E STAIN HISTOLOGY: TISSUE ID BLK PCS DONNA LEV / PROCEDURE DISPOSITION ____ ___ ___ ___ ___ COLON SEG NTUMR A 5 1 TISSUES: A. COLON SEGMENTAL [id number] - Sigmoid Colon CLINICAL HISTORY Diverticulitis FINAL DIAGNOSIS SIGMOID COLON, RESECTION: -ACUTE DIVERTICULITIS WITH MICROSCOPIC PERFORATIONS AND ORGANIZING ABSCESS -ONE BENIGN LYMPH NODE -SEROSAL ADHESIONS -NO DYSPLASIA OR MALIGNANCY IS IDENTIFIED CPT 78956 GROSS DESCRIPTION Received in formalin labeled with [...] The bowel wall does not appear thickened. 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 CM/ta. Signed SIGNATURE ON FILE Sangita Arnett MD 08/26/20 1539 END OF REPORT CBC W/MANUAL [id number] 08:31:00 Test Item Value Reference Range Interpretation [...] code NORMAL NORMAL = PLTMORPH) BASIC METABOLIC [id number] 06:27:00 Test Item Value Reference Range Interpretation [...] code 8.9 mg/dL 8.8-10.2 N = CA) [id number] 06:27:00 Test Item Value Reference Range Interpretation Comments MAGNESIUM (test code = MAG) 2.1 mg/dL 1.4-2.6 N CBC W/MANUAL [id number] 06:21:00 Test Item Value Reference Range Interpretation [...] = LYMPH) % 20-40 Novel Coronavirus 2018 [id number] 11:11:00 Test Item Value Reference Range Interpretation [...] resul t in this assay.Performed At: [facility] [address] [id number] brooklyn Catalan MD Ph:[phone] COMPREHENSIVE METABOLIC [id number] 13:25:00 Test Item Value Reference Range Interpretation [...] 45-120 N PHOSPHATASE (test code = ALKP) [id number] 13:25:00 Test Item Value Reference Range Interpretation Comments PREALBUMIN (test code = PREALB) 27.6 MG/ML 15-42 N COMPREHENSIVE METABOLIC [id number] 11:55:00 Test Item Value Reference Range Interpretation [...] 45-120 N PHOSPHATASE (test code = ALKP) [id number] 11:55:00 Test Item Value Reference Range Interpretation Comments PREALBUMIN (test code = PREALB) MG/ML 15-42 CBC W/AUTO [id number] 09:26:00 Test Item Value Reference Range Interpretation [...] BA#) 0.10 x10 3/uL 0.0-0.20 N PROTHROMBIN [id number] 09:26:00 Test Item Value Reference Range Interpretation [...] 2.5-3.5recurren t systemic emboli sm. THROMBOPLASTIN TIME [id number] 09:26:00 Test Item Value Reference Range Interpretation Comments THROMBOPLASTIN TIME 27.8 SECONDS 23.8-34.8 N INTERPRE TATIVE PARTIAL (test code = DATA: erapeutic PTT) range: Unfractionated heparin:55 - 80 seconds Argatroban:1.5 to 3 times the basel ine PTT Notes Date/Time Note Provider Source 2020-09-18 14:29:00-00:00 [id number] [facility] [address] [place] [address] PATIENT NAME: VALERI BENJAMIN ADMIT DATE: 08/11 01/28 ACCOUNT NO: [id number] ROOM NO: [facility] AGE: 45 REPORT TYPE: OPERATIVE REPORT SEX: M ADMITTING PHYSICIAN:Pawan Baum MD ATTENDING PHYSICIAN:Pawan Baum MD OPERATION DATE: 08/25/2020 DATE OF SURGERY: 08/25/2020 PREOPERATIVE DIAGNOSES: Diverticulitis with micr operforation and abscess. POSTOPERATIVE DIAGNOSES: Diverticulitis with myrna roperforation and abscess. PROCEDURES: 1. Laparoscopic-assisted robotic anterio r rectosigmoid resection with drainage of abscess and primary colorectal anastomosis. 2. Laparoscopic splenic flexure takedown. COLORECTAL SURGEON: Pawan Baum MD. COLOR STRIPPER: Galindo Canseco MD. ANESTHESIA: General endotracheal anesthesia. SPECIMEN: Segmental resection, diverticulitis al alondra with abscess. COMPLICATIONS: None. CONDITION: Stable. INDICATIONS AND FINDINGS: He presents with recur rent diverticulitis and evidence of microperforation and abscess. After a cool down period, he was sent for surgery. The surgery was unusually difficult due to the body habitus and the stature and the extensive nature of the dise ase. There was obvious pericolonic micro-abscess and abscess fo rmation of a chronic nature. This made the dissection much more difficult and tedious, adding a total of 30% to 40% longer of a typical procedure of this nature, al so with the patient's body habitus as well. We were able to resect the dise ase. It was an extended resection, approximately 20 cm in length . We had to thin the specimen in order to extract it transrectally, thus we had to take down the splenic flexure in order to allow a tension-marta e anastomosis. We had to drain the abscess contents as well laparoscopically. Primary anastomosis wa s achieved. Surgical engineer first assistant was present and was required to a ccomplish this procedure in a safe and minimally invasive fashion. He tolerated the pro cedure well without complications. PROCEDURE IN DETAIL: He was taken to the operating room and after induction of anesthesia, placed in modifi ed lithotomy position. He was prepped and draped in PATIENT NAME: VALERI BENJAMIN ACCOUNT #: [id number] sterile fashion. Laparoscopic access was gained with a 5-mm Optiview trocar. Three 8 mm ports were placed. He was placed in [facility]. The robot was docked. We began with a lateral to medial dissec tion, taking down the white line of Toldt on the left in to the pericolic gutter. We then tacked the splenic flexure, taking down the gas trocolic ligament and splenocolic ligament, entering the lesser sac, pulling down for a tensi on-free anastomosis. We got now to the level of the disease. It was socked in laterally . We had to peel it off, identified into the microperforation and abscess formation, which we aspirated and irrigated and drained. W e then freed up the disease all the way down to the upper third of the rectum. We then mobilized the rectum by taking down the anterior reflection and the lateral reflection. We then divided proximally at the left colon and sigmoid junction, proximal to the disease, took down the mesentery close to the bowel and then resected i t past the disease and transected in the upper third of the rectum. Nex t, we put an Luis Enrique wound retractor. We had to thin the specimen of the me sentery. We extracted the specimen transrectally. Next, we introduced the anvil to the 31 stapler, secured it to the left colon with a pursestring suture. We then closed the rectal cuff with another pursestring suture and performed an end-to-end colorectal anastomosis. The anastomosis was tens ion free and viable. We performed proctoscopy. Insufflation test reveale d no bubbles or leaks. We oversewed the anastomosis with interrupted 3- 0 Vicryl sutures. There was some tension here; however, we went and released more of the splenic flexure ligaments, retroperitoneal, to relieve the tension. We therefore felt there was no need for a diverting loop ileostomy, knowing that there were complications with the ileostomy; and at this point, s avery the anastomosis was intact, there was no further evidence of abscess. We i rrigated and drained the area that was safest to perform without an automatic diversion . Needle, instrument and laparotomy count was perf ormed and was correct. Pneumoperitoneum was released. Ports wer e removed. Port sites were closed with 4-0 Monocryl and Dermabond. He tolerated the pro cedure well and was taken to the recovery room in good condition. Dictated By: Pawan Baum MD WT: OP:PRAJNI/NIKKO/STEVE Conf#: [id number]/DID#: [id number] Authenticated by Pawan Baum MD On 09/21/2020 1 0:51:12 AM Electronically Signed by Pawan Baum MD on 09/11 10/01 at 1051 PATIENT NAME: VALERI BENJAMIN ALAN ACCOUNT #: [id number] 2020-08-19 08:27:00-00:00 [id number] [address] PATIENT NAME: VALERI BENJAMIN ADMIT DATE: ACCOUNT NO: [id number] ROOM NO: AGE: 45 REPORT TYPE: eELECTROCARDIOGRAM SEX: M ADMITTING PHYSICIAN: Pawan Baum MD ATTENDING PHYSICIAN: Pawan Baum MD Order: [id number] Test Reason : PRE-OP Test Date/Time Stamp: MonAug 19 2020 08:27:28 Blood Pressure : / mmHG Vent. Rate : 067 BPM Atrial Rate : 067 BPM P-R Int : 158 ms QRS Dur : 092 ms QT Int : 432 ms P-R-T Axes : 049 003 029 degre es QTc Int : 456 ms Normal sinus rhythm Normal ECG No previous ECGs available Confirmed by WOODY ESPARZA MD ([id number]) on 08/19/20 7:27:23 PM Referred By: Pawan Baum Confirmed by:WOODY ESPARZA MD Electronically Signed by Woody Esparza MD on 05/31 at 1865 PATIENT NAME: VALERI BENJAMIN ACCOUNT #: [id number]
[2023-04-10 18:38] LABS: Specific Gravity 1.018 (1.005-1.030); Urine Bilirubin NEGATIVE (Negative); Urine Blood Negative (Negative); Urine Clarity Clear (Clear); Urine Color Light-Yellow (Yellow); Urine Glucose NEGATIVE (Negative); Urine Protein NEGATIVE (Negative); Urine Urobilinogen Normal (Normal); Urine pH 5.5 (5.0-7.0)
[2023-04-10 18:50] LABS: Absolute Lymphocytes (CBC) 3.9 K/uL (0.7-4.9); Hematocrit 44.9 % (39.6-49.0); Lymphocytes % 38.4 % (15.3-44.8); MCV 90.7 fL (80-100); MPV 6.7 fL (7.6-11.3); RBC Red Blood Cell Count 4.94 M/uL (4.33-5.43)
[2023-04-10 18:54] LABS: Albumin 4.1 g/dL (3.4-5.0); Bilirubin Total 0.4 mg/dL (0.2-1.0); Potassium 3.7 mEq/L (3.5-5.1); Protein, Total 8.5 g/dL (6.4-8.2)
--- NOTE | 2023-04-10 20:29 | RAD REPORT ---
EXAM DESCRIPTION: CTAbdomen Pelvis W Contrast - 04/10/2023 8:17 pm CLINICAL HISTORY: ABD PAIN COMPARISON: 11/03/2022, 07/30/2020 TECHNIQUE: CT of the abdomen and pelvis was performed without IV contrast. All CT scans are performed using dose optimization technique as appropriate and may include automated exposure control or mA/KV adjustment according to patient size. FINDINGS: Lower chest: No acute abnormality. Liver: Hepatic steatosis Biliary: No biliary ductal dilatation. Stomach: No significant focal abnormality. Duodenum: No significant focal abnormality. Pancreas: No significant abnormality. Spleen: No significant abnormality. Adrenal: Benign left adrenal nodule measuring 19 millimeters which is unchanged since 2019. This does not require follow-up. Kidney/ureter: No hydronephrosis. 3 mm stone in lower pole right kidney. Retroperitoneum: No retroperitoneal adenopathy. Vascular: Small right iliac artery aneurysm measuring 10 millimeters similar to 2020. Atherosclerosis . Bowel: Diverticulosis. No evidence of acute diverticulitis.. Peritoneum: No ascites or free air. Stranding in the right inguinal region may be from prior inguinal hernia repair. Small fat containing umbilical hernia. Bladder: Grossly unremarkable. Reproductive: Mild prostatomegaly . Bones: No acute fracture. Other: n/a IMPRESSION: No acute intra-abdominal or pelvic finding. Incidental findings as noted above.
--- NOTE | 2023-04-10 20:48 | ER ---
Nurse's Notes [facility] Name: Xiomara Haro Age: 48 yrs Sex: Male : 1975 Arrival Date: 04/10/2023 Time: 17:34 Bed DX5 Private MD: Diagnosis: Abdominal pain, unspecified Presentation: 04/10 17:58 Chief complaint: Patient states: Abdominal pain X a few weeks. Pt states that he came cm10 to the ED today because yesterday and today his poop has been green. Pt denies any fever, nausea or diarrhea. Coronavirus screen: Vaccine status: Patient reports being unvaccinated. Ebola Screen: Patient denies travel to an Ebola-affected area in the 21 days before illness onset. No symptoms or risks identified at this time. Initial Sepsis Screen: Does the patient meet any 2 criteria? No. Patient's initial sepsis screen is negative. Does the patient have a suspected source of infection? No. Patient's initial sepsis screen is negative. Risk Assessment: Do you want to hurt yourself or someone else? Patient reports no desire to harm self or others. Onset of symptoms was April 10, 2023. 17:58 Method Of Arrival: Ambulatory cm10 17:58 Acuity: DULCE 3 cm10 Historical: - Allergies: 18:00 Wheat/glutens; cm10 18:00 Strawberries; cm10 18:00 eggs; cm10 18:00 apples; cm10 - PMHx: 18:00 Diverticulitis; Myocardial infarction; "stress induced"; cm10 - PSHx: 18:00 colon resection; Hernia repair x 4; cm10 - Immunization history:: Adult Immunizations unknown. - Social history:: Smoking status: Patient denies any tobacco usage or history of. Screenin:[address] [facility] ED Fall Risk Assessment (Adult) Score/Fall Risk Level 0 - 2 = Low Risk. Abuse as6 screen: Denies threats or abuse. Denies injuries from another. Nutritional screening: No deficits noted. Tuberculosis screening: No symptoms or risk factors identified. Assessment: 18:29 Reassessment: CT notified that pt completed oral contrast. cm10 21:09 General: discharge pending fluid completion . as6 Vital Signs: 17:58 BP 126 / 99; Pulse 84; Resp 18; Temp 98.3; Pulse Ox 100% ; Weight 87.09 kg; Height 5 cm10 ft. 10 in. ; Pain 6/10; 22:05 BP 118 / 74; Pulse 79; Resp 18 S; Pulse Ox 100% on R/A; as6 17:58 Body Mass Index 27.55 (87.09 kg, 177.8 cm) cm10 17:58 Pain Scale: Adult cm10 ED Course: 17:36 Patient arrived in ED. am2 17:40 Naseem Stark PA is PHCP. cp 17:40 Romeo Anaya MD is Attending Physician. cp 18:00 Triage completed. cm10 18:01 Arm band placed on Patient placed in waiting room. cm10 18:10 Karson Zamora MD is Attending Physician. cp 18:28 Initial lab(s) drawn, by pa, sent to lab. Urine collected: clean catch specimen, clear. cm10 Inserted saline lock: 20 gauge in right forearm, using aseptic technique. Blood collected. 18:29 CBC with Diff Sent. cm10 18:29 CMP Sent. cm10 18:29 Lipase Sent. cm10 18:29 Urinalysis w/ reflexes Sent. cm10 20:19 CT Abd/Pelvis - PO and IV Contrast In Process Unspecified. EDMS 20:46 Edy Willis MD is Referral Physician. cp 22:04 Bed in low position. Call light in reach. Provided Education on: discharge teaching. as6 22:05 No provider procedures requiring assistance completed. IV discontinued, intact, as6 bleeding controlled, No redness/swelling at site. Pressure dressing applied. Administered Medications: 21:08 Drug: Ketorolac IVP 15 mg Route: IVP; Site: right forearm; as6 22:04 Follow up: Response: No adverse reaction as6 21:08 Drug: NS 0.9% IV 1000 ml Route: IV; Rate: 1 bolus; Site: right forearm; as6 22:04 Follow up: Response: No adverse reaction; IV Status: Completed infusion; IV Intake: as6 1000ml Medication: 22:04 VIS not applicable for this client. as6 Intake: 22:04 IV: 1000ml; Total: 1000ml. as6 Outcome: 20:47 Discharge ordered by . cp 22:05 Discharged to home ambulatory, with significant other. as6 22:05 Condition: stable 22:05 Discharge instructions given to patient, Instructed on discharge instructions, follow up and referral plans. medication usage, Demonstrated understanding of instructions, follow-up care, medications, Prescriptions given X 2. 22:06 Patient left the ED. as6 Signatures: Dispatcher [employer] EDMS Naseem Stark PA PA cp Moreno, Amanda am2 Real Pedersen RN RN as6 Genevieve Schmitt RN RN cm10
--- NOTE | 2023-04-10 20:48 | EDPHYS ---
Physician Documentation [facility] Name: Xiomara Haro Age: 48 yrs Sex: Male : 1975 Arrival Date: 04/10/2023 Time: 17:34 Bed DX5 Private MD: ED Physician Karson Zamora HPI: 04/10 18:15 This 48 yrs old Male presents to ER via Ambulatory with complaints of Abdominal Pain. cp 18:15 The patient presents with abdominal pain left flank and right flank. cp 18:15 Onset: The symptoms/episode began/occurred for past "few weeks". The symptoms do not cp radiate. Associated signs and symptoms: Pertinent positives: green colored stool, Pertinent negatives: blood in stools, chest pain, constipation, diarrhea, dysuria, fever. 18:15 The symptoms are described as dull, waxing/waning. Patient reports HX of cp diverticulitis, but pain different. Historical: - Allergies: 18:00 Wheat/glutens; cm10 18:00 Strawberries; cm10 18:00 eggs; cm10 18:00 apples; cm10 - PMHx: 18:00 Diverticulitis; Myocardial infarction; "stress induced"; cm10 - PSHx: 18:00 colon resection; Hernia repair x 4; cm10 - Immunization history:: Adult Immunizations unknown. - Social history:: Smoking status: Patient denies any tobacco usage or history of. ROS: 18:20 Constitutional: Negative for body aches, chills, fever, poor PO intake. cp 18:20 Eyes: Negative for injury, pain, redness, and discharge. cp 18:20 ENT: Negative for ear pain, sore throat, difficulty swallowing, difficulty handling secretions. 18:20 Cardiovascular: Negative for chest pain. 18:20 Respiratory: Negative for cough, shortness of breath, wheezing. 18:20 Abdomen/GI: Positive for abdominal pain, green colored stool, Negative for vomiting, diarrhea, constipation, black/tarry stool, rectal pain, rectal bleeding. 18:20 Back: Negative for pain at rest, pain with movement. 18:20 : Negative for urinary symptoms, testicular pain 18:20 Neuro: Negative for dizziness, headache, syncope, weakness. 18:20 All other systems are negative. Exam: 18:25 Constitutional: The patient appears in no acute distress, alert, awake, non-toxic, well cp developed, well nourished. 18:25 Head/Face: Normocephalic, atraumatic. cp 18:25 Eyes: Periorbital structures: appear normal, Conjunctiva: normal, no exudate, no injection, Sclera: no appreciated abnormality, Lids and lashes: appear normal, bilaterally. 18:25 ENT: External ear(s): no acute changes, Nose: is normal, Mouth: Lips: moist, Oral mucosa: moist, Posterior pharynx: is normal, airway is patent, no erythema, no exudate. 18:25 Neck: ROM/movement: is normal, is supple, without pain, no range of motions limitations. 18:25 Chest/axilla: Inspection: normal, Palpation: is normal, no crepitus, no tenderness. 18:25 Cardiovascular: Rate: normal, Rhythm: regular, Edema: is not appreciated, JVD: is not appreciated. 18:25 Respiratory: the patient does not display signs of respiratory distress, Respirations: normal, no use of accessory muscles, no retractions, labored breathing, is not present, Breath sounds: are clear throughout, no decreased breath sounds, no stridor, no wheezing. 18:25 Abdomen/GI: Inspection: abdomen appears normal, Bowel sounds: active, all quadrants, Palpation: soft, in all quadrants. 18:25 Back: CVA tenderness, is absent. 18:25 Skin: no rash present. 18:25 Neuro: Orientation: to person, place \\T\\ time. Mentation: is normal, Motor: moves all fours, strength is normal. Vital Signs: 17:58 BP 126 / 99; Pulse 84; Resp 18; Temp 98.3; Pulse Ox 100% ; Weight 87.09 kg; Height 5 cm10 ft. 10 in. ; Pain 6/10; 22:05 BP 118 / 74; Pulse 79; Resp 18 S; Pulse Ox 100% on R/A; as6 17:58 Body Mass Index 27.55 (87.09 kg, 177.8 cm) cm10 17:58 Pain Scale: Adult cm10 MDM: 18:05 Patient medically screened. cp 19:00 Differential diagnosis: bowel obstruction, diverticulitis, gastritis, non-specific abd cp pain, pancreatitis, Peptic Ulcer Disease, Perf. Duodenal Ulcer, Perf. Gastric Ulcer, Pyelonephritis, urinary tract infection. 20:45 Data reviewed: vital signs, nurses notes, lab test result(s), radiologic studies, CT cp scan. 20:46 I considered the following discharge prescriptions or medication management in the emergency department Medications were administered in the Emergency Department. See MAR. 20:46 Counseling: I had a detailed discussion with the patient and/or guardian regarding: the cp historical points, exam findings, and any diagnostic results supporting the discharge/admit diagnosis, lab results, radiology results, to return to the emergency department if symptoms worsen or persist or if there are any questions or concerns that arise at home. Response to treatment: the patient's symptoms have markedly improved after treatment, and as a result, I will discharge patient. Special discussion: Based on the patient's Hx, exam, and Dx evaluation, there is no indication for emergent surgery or inpatient Tx. It is understood by the patient/guardian that if the Sx's persist or worsen they need to return immediately for re-evaluation. 04/10 18:06 Order name: CBC with Diff; Complete Time: 18:58 04/10 20:37 Interpretation: Normal except: MPV 6.7. 04/10 18:06 Order name: CMP; Complete Time: 18:58 04/10 20:37 Interpretation: Normal except: GFR 80; AST 14; TP 8.5; GLOB 4.4; A/G 0.9. 04/10 18:06 Order name: Lipase; Complete Time: 18:58 04/10 18:06 Order name: Urinalysis w/ reflexes; Complete Time: 18:58 04/10 18:06 Order name: CT Abd/Pelvis - PO and IV Contrast; Complete Time: 20:31 04/10 20:32 Interpretation: Report reviewed. 04/10 18:06 Order name: IV Saline Lock; Complete Time: 18:29 04/10 18:06 Order name: Labs collected and sent; Complete Time: 18:29 Administered Medications: 21:08 Drug: Ketorolac IVP 15 mg Route: IVP; Site: right forearm; as6 22:04 Follow up: Response: No adverse reaction as6 21:08 Drug: NS 0.9% IV 1000 ml Route: IV; Rate: 1 bolus; Site: right forearm; as6 22:04 Follow up: Response: No adverse reaction; IV Status: Completed infusion; IV Intake: as6 1000ml Disposition Summary: 04/10/23 20:47 Discharge Ordered Location: Home cp Problem: new cp Symptoms: have improved cp Condition: Stable cp Diagnosis - Abdominal pain, unspecified cp Followup: cp - With: Edy Willis MD - When: 2 - 3 days - Reason: Worsening of condition Discharge Instructions: - Discharge Summary Sheet cp - Abdominal Pain, Adult cp Forms: - Medication Reconciliation Form cp - Thank You Letter cp - Antibiotic Education cp - Prescription Opioid Use cp - Patient Portal Instructions cp Prescriptions: - Protonix 40 mg Oral Tablet - take 1 tablet by ORAL route once daily; 30 tablet; Refills: 0, Product cp Selection Permitted - dicyclomine 20 mg Oral Tablet - take 1 tablet by ORAL route 4 times per day As needed; 30 tablet; Refills: 0, cp Product Selection Permitted Signatures: Dispatcher [employer] EDAK Naseem Stark PA PA cp Real Pedersen RN RN as6 Genevieve Schmitt RN RN cm10 Corrections: (The following items were deleted from the chart) 20:37 20:37 Normal except: GFR 80. cp cp
[2023-04-10] MEDS ORDERED: KETOROLAC 30 MG/ML INJ ONE (21:16)
[2023-04-10] MEDS ORDERED: NA CHLORIDE 0.9% 1,000 ML ONE (21:16)
[2023-04-10 23:07] VITALS: TEMP 98.3; O2SAT 100
[2023-04-10 23:09] VITALS: BP 118/74
== END 2023-04-10 22:06 | disposition home or self-care (01) ==
LOC: ER 17:34
DX: R10.9 Unspecified abdominal pain (principal); Z91.012 Allergy to eggs; Z91.018 Allergy to other foods
CPT/HCPCS: 96361; 85025; 36415; 81003; 83690; 80053; 74177; 96374; 99284; Q9967; J7030

== ENCOUNTER 2023-05-09 17:34 | Emergency (ER) | payer OTHER ==
--- OUTSIDE RECORDS SUMMARY | 2023-05-09 17:54 | XMS REPORT | Continuity of Care Document ---
:1975 Author Organization [facility] t Address [address] [facility] [place] [address] Care Team Providers Name Role Phone Hanh Gordon DO Primary Care Physician Eric Srinivasan Attending Clinician Unavailable Radha Steele Attending Clinician Unavailable Hanh GORDON Attending Clinician Unavailable Dwayne Bennett Attending Clinician Unavailable Pawan Baum Attending Clinician Unavailable Anthony Griffin MD Attending Clinician Haylee Marvin Attending Clinician [phone] Dwayne Bennett Admitting Clinician Unavailable Hanh Gordon Admitting Clinician Unavailable Payers Payer Name Policy Type Policy Number Effective Date Expiration Date S [place] [id number] [id number] 2022 [facility] 00:00:00 [facility] ter [facility] [id number] 2019 [facility] 00:00:00 Hospital [id number] /09/2018-PresentP PO Problems Condition Condition Condition Status Onset Resolution Last Treating Co mments Source Name Details Category Date Date Treatment Clinician Date [id number] Chronic Problem Common fatigue [facility] [id number] Insomnia, Problem Com mon unspecifie Spirit d type - [facility] Allergic Allergic Problem Commo n rhinitis rhinitis Spirit due to due to - [facility] pollen pollen [facility] [id number] Hx of Problem Common colectomy Spirit [facility] Right Right Problem Common inguinal inguinal [facility] hernia hernia [facility] [id number] Mixed Problem Common hyperlipid Spirit emia [facility] Allergic Acute Problem Common rhinitis allergic Spirit rhinitis [facility] Indigestio Indigestio Problem C ommon n n Spirit [facility] [id number] Mild Problem Common depression [facility] Diverticul Diverticul Problem C ommon itis itis [facility] Vitamin D Vitamin D Problem Com mon deficiency deficiency Sp rj [facility] [id number] Other Problem Common chronic Spirit pain [facility] [id number] Neuropathy Problem Co mmon [facility] [id number] Chronic Problem Commo n systolic Spirit heart - [facility]I failure [facility] 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 Natural mother No Known Problems Met [facility] Social History Social Habit Start Date Stop Date Quantity Comments Source Gender identity 2021-12-06 Identifies as Method t 13:56:12 male gender [facility] (finding) History of Tobacco Common Spirit - Use [facility] Sex Assigned At Common Sp rj - [facility] Sexual orientation Method [facility] Alcohol intake 2019-06-20 2019-06-20 Current drinker [facility] 00:00:00 00:00:00 of alcohol Hospital (finding) History of Social 2019-05-02 2019-05-[address] function 00:00:00 00:00:00 Hospital Alcohol Comment 2019-02-07 2019-02-07 Socially Quaker 00:00:00 00:00:00 Hospital Tobacco use and 2019-02-07 2019-02-07 Smokeless tobacco [facility] exposure 00:00:00 00:00:00 non-user Hospital Smoking Status Start Date Stop Date Source Former Smoker 2022-09-29 00:00:00 2022-09-29 00:00:00 Common S pirit - [facility] Medications Ordered Filled Start Stop Current Ordering Indication Dosage Frequency Signature Comments Components Source Medication Medication Date Date Medication? Clinician (SIG) Name Name allergy allergy 2022-0 No .5mL Common extract extract 2- Spirit 00:00: - [facility] allergy allergy 2023-0 No .5mL Common extract extract 2 Spirit 00:00: - [facility] allergy allergy 2023-0 No .45mL Common extract extract 2 Spirit 00:00: - [facility] allergy allergy 2023-0 No .45mL Common extract extract 2- Spirit 00:00: - [facility] allergy allergy 2023-0 No .45mL Common extract extract 2- Spirit 00:00: - [facility] allergy allergy 2023-0 No .45mL Common extract extract 2- Spirit 00:00: - [facility] allergy allergy 2023-0 No .4mL Common extract extract 1 Spirit 00:00: - [facility] allergy allergy 2023-0 No .4mL Common extract extract 1-26 Spirit 00:00: - [facility] allergy allergy 2023-0 No .4mL Common extract extract 1- Spirit 00:00: - [facility] allergy allergy 2023-0 No .4mL Common extract extract 1- Spirit 00:00: - [facility] allergy allergy 2023-0 No .4mL Common extract extract 1- [facility] 00:00: - [facility] allergy allergy 2023-0 No .4mL Common extract extract 1- Spirit 00:00: - [facility] allergy allergy 2023-0 No .35mL Common extract extract 1 [facility] 00:00: - [facility] allergy allergy 3-0 No .35mL Common extract extract 1-19 Spirit 00:00: - [facility]I 00 [facility] allergy allergy 3-0 No .35mL Common extract extract 1-19 Spirit 00:00: - [facility]I 00 [facility] allergy allergy 3-0 No .35mL Common extract extract 1- Spirit 00:00: - [facility] 00 [facility] allergy allergy 3-0 No .35mL Common extract extract 1-19 [facility] 00:00: - [facility] 00 [facility] allergy allergy 3-0 No .35mL Common extract extract 1- Spirit 00:00: - [facility] allergy allergy 3-0 No .35mL Common extract extract 1- [facility] 00:00: - [facility] allergy allergy 3-0 No .35mL Common extract extract 1- Spirit 00:00: - [facility] allergy allergy 3-0 No .3mL Common extract extract 1-12 Spirit 00:00: - [facility] allergy allergy 3-0 No .3mL Common extract extract 1-12 [facility] 00:00: - [facility] allergy allergy 3-0 No .3mL Common extract extract 1-12 [facility] 00:00: - [facility] 00 [facility] allergy allergy 3-0 No .3mL Common extract extract 1-12 [facility] 00:00: - [facility] allergy allergy 3-0 No .3mL Common extract extract 1-12 [facility] 00:00: - [facility] 00 [facility] allergy allergy 3-0 No .3mL Common extract extract 1-12 [facility] 00:00: - [facility] 00 [facility] allergy allergy 3-0 No .3mL Common extract extract 1-12 [facility] 00:00: - [facility] 00 [facility] allergy allergy 3-0 No .3mL Common extract extract 1-12 [facility] 00:00: - [facility] 00 [facility] allergy allergy 3-0 No .3mL Common extract extract 1-12 [facility] 00:00: - [facility]I 00 [facility] allergy allergy 3-0 No .3mL Common extract extract 1-12 [facility] 00:00: - [facility] 00 [facility] allergy allergy 2023-0 No .3mL Common extract extract 1-12 [facility] 00:00: - [facility]I 00 [facility] allergy allergy 2023-0 No .3mL Common extract extract 1-12 Spirit 00:00: - [facility]I 00 [facility] allergy allergy 3-0 No .25mL Common extract extract 1-05 Spirit 00:00: - [facility]I 00 [facility] allergy allergy 2023-0 No .25mL Common extract extract 1-05 Spirit 00:00: - [facility]I 00 [facility] allergy allergy 2023-0 No .25mL Common extract extract 1-05 Spirit 00:00: - [facility]I 00 [facility] allergy allergy 3-0 No .25mL Common extract extract 1-05 [facility] 00:00: - [facility]I 00 [facility] allergy allergy 3-0 No .25mL Common extract extract 1-05 [facility] 00:00: - [facility]I 00 [facility] allergy allergy 2023-0 No .25mL Common extract extract 1-05 [facility] 00:00: - [facility]I 00 [facility] allergy allergy 2023-0 No .25mL Common extract extract 1-05 Spirit 00:00: - [facility]I 00 [facility] allergy allergy 3-0 No .25mL Common extract extract 1-05 [facility] 00:00: - [facility]I 00 [facility] allergy allergy 3-0 No .25mL Common extract extract 1-05 [facility] 00:00: - [facility]I 00 [facility] allergy allergy 2023-0 No .25mL Common extract extract 1-05 Spirit 00:00: - [facility]I 00 [facility] allergy allergy 2023-0 No .25mL Common extract extract 1-05 Spirit 00:00: - [facility]I 00 [facility] allergy allergy 2023-0 No .25mL Common extract extract 1-05 [facility] 00:00: - [facility]I 00 [facility] allergy allergy 2023-0 No .25mL Common extract extract 1-05 [facility] 00:00: - [facility]I 00 [facility] allergy allergy 2023-0 No .25mL Common extract extract 1-05 Spirit 00:00: - [facility]I 00 [facility] allergy allergy 2022-1 No .2mL Common extract extract 2-29 Spirit 00:00: - [facility]I 00 [facility] allergy allergy 2022-1 No .2mL Common extract extract 2-29 Spirit 00:00: - [facility]I 00 [facility] allergy allergy 2021-09 No .2mL Common extract extract 2- Spirit 00:00: - [facility]I 00 [facility] allergy allergy 2021-09 No .2mL Common extract extract 2- Spirit 00:00: - [facility]I 00 [facility] allergy allergy 2021-09 No .2mL Common extract extract 2- Spirit 00:00: - [facility]I 00 [facility] allergy allergy 2021-09 No .2mL Common extract extract 2- Spirit 00:00: - [facility]I 00 [facility] allergy allergy 2021-09 No .2mL Common extract extract 2- Spirit 00:00: - [facility]I 00 [facility] allergy allergy 2021-09 No .2mL Common extract extract 2- Spirit 00:00: - [facility] 00 [facility] allergy allergy 2021-09 No .2mL Common extract extract 2- Spirit 00:00: - [facility]I 00 [facility] allergy allergy 2021-09 No .2mL Common extract extract 2- Spirit 00:00: - [facility]I 00 [facility] allergy allergy 2021-09 No .2mL Common extract extract 2- Spirit 00:00: - [facility]I 00 [facility] allergy allergy 2021-09 No .2mL Common extract extract 2- Spirit 00:00: - [facility]I 00 [facility] allergy allergy 2021- No .2mL Common extract extract 2- Spirit 00:00: - [facility]I 00 [facility] allergy allergy 2021- No .2mL Common extract extract 2- Spirit 00:00: - [facility]I 00 [facility] allergy allergy 2021- No .2mL Common extract extract 2- Spirit 00:00: - [facility]I 00 [facility] allergy allergy 2021- No .2mL Common extract extract 2- Spirit 00:00: - [facility]I 00 [facility] allergy allergy 2021- No .15mL Common extract extract 2- Spirit 00:00: - [facility] 00 [facility] allergy allergy 2021- No .15mL Common extract extract 2- Spirit 00:00: - [facility]I 00 [facility] allergy allergy 2021- No .15mL Common extract extract 2-22 Spirit 00:00: - [facility]I 00 [facility] allergy allergy 2021-09 No .15mL Common extract extract 2-22 [facility] 00:00: - [facility]I 00 [facility] allergy allergy 2021-09 No .15mL Common extract extract 2-22 [facility] 00:00: - [facility] 00 [facility] allergy allergy 2021-09 No .15mL Common extract extract 2-22 [facility] 00:00: - [facility] 00 [facility] allergy allergy 2021-09 No .15mL Common extract extract 2-22 [facility] 00:00: - [facility]I 00 [facility] allergy allergy 2021-09 No .15mL Common extract extract 2-22 [facility] 00:00: - [facility]I 00 [facility] allergy allergy 2021-09 No .15mL Common extract extract 2-22 Spirit 00:00: - [facility]I 00 [facility] allergy allergy 2021-09 No .15mL Common extract extract 2-22 [facility] 00:00: - [facility]I 00 [facility] allergy allergy 2021-09 No .15mL Common extract extract 2-22 [facility] 00:00: - [facility]I 00 [facility] allergy allergy 2021-09 No .15mL Common extract extract 2-22 [facility] 00:00: - [facility]I 00 [facility] allergy allergy 2021-09 No .15mL Common extract extract 2-22 [facility] 00:00: - [facility]I 00 [facility] allergy allergy 2021-09 No .15mL Common extract extract 2-22 [facility] 00:00: - [facility]I 00 [facility] allergy allergy 2021-09 No .15mL Common extract extract 2-22 Spirit 00:00: - [facility]I 00 [facility] allergy allergy 2021- No .15mL Common extract extract 2-22 [facility] 00:00: - [facility]I 00 [facility] allergy allergy 2021- No .15mL Common extract extract 2-22 Spirit 00:00: - [facility]I 00 [facility] allergy allergy 2021- No .15mL Common extract extract 2-22 Spirit 00:00: - [facility]I 00 [facility] allergy allergy 2021- No .15mL Common extract extract 2-22 Spirit 00:00: - [facility]I 00 [facility] allergy allergy 2021- No .15mL Common extract extract 2-22 Spirit 00:00: - [facility]I 00 [facility] allergy allergy 2021-09 No .15mL Common extract extract 2-22 Spirit 00:00: - [facility]I 00 [facility] allergy allergy 2021- No .15mL Common extract extract 2-22 Spirit 00:00: - [facility]I 00 [facility] allergy allergy 2021-09 No .15mL Common extract extract 2-22 Spirit 00:00: - [facility]I 00 [facility] allergy allergy 2021-09 No .15mL Common extract extract 2-22 Spirit 00:00: - [facility]I 00 [facility] allergy allergy 2021-09 No .5mL Common extract extract 2-15 Spirit 00:00: - [facility] 00 [facility] allergy allergy 2021-09 No .5mL Common extract extract 2-15 Spirit 00:00: - [facility] 00 [facility] allergy allergy 2021-09 No .5mL Common extract extract 2-15 Spirit 00:00: - [facility] 00 [facility] allergy allergy 2021-09 No .5mL Common extract extract 2-15 Spirit 00:00: - [facility]I 00 [facility] allergy allergy 2021-09 No .5mL Common extract extract 2-15 Spirit 00:00: - [facility]I 00 [facility] allergy allergy 2021-09 No .5mL Common extract extract 2-15 Spirit 00:00: - [facility]I 00 [facility] allergy allergy 2021-09 No .5mL Common extract extract 2-15 Spirit 00:00: - [facility]I 00 [facility] allergy allergy 2021-09 No .5mL Common extract extract 2-15 Spirit 00:00: - [facility]I 00 [facility] allergy allergy 2021- No .5mL Common extract extract 2-15 Spirit 00:00: - [facility]I 00 [facility] allergy allergy 2021-09 No .5mL Common extract extract 2-15 Spirit 00:00: - [facility]I 00 [facility] allergy allergy 2021- No .5mL Common extract extract 2-15 [facility] 00:00: - [facility] 00 [facility] allergy allergy 2021- No .5mL Common extract extract 2-15 [facility] 00:00: - [facility] 00 [facility] allergy allergy 2021- No .5mL Common extract extract 2-08 Spirit 00:00: - [facility] 00 [facility] allergy allergy 2021- No .5mL Common extract extract 2-08 [facility] 00:00: - [facility] 00 [facility] allergy allergy 2021- No .5mL Common extract extract 2-08 Spirit 00:00: - [facility] 00 [facility] allergy allergy 2021- No .5mL Common extract extract 2-08 [facility] 00:00: - [facility] 00 [facility] allergy allergy 2021- No .5mL Common extract extract 2-08 [facility] 00:00: - [facility] 00 [facility] allergy allergy 2021- No .5mL Common extract extract 2-08 [facility] 00:00: - [facility] 00 [facility] allergy allergy 2021- No .5mL Common extract extract 2-08 [facility] 00:00: - [facility] 00 [facility] allergy allergy 2021- No .5mL Common extract extract 2-08 [facility] 00:00: - [facility] 00 [facility] allergy allergy 2021- No .5mL Common extract extract 2-08 [facility] 00:00: - [facility] 00 [facility] allergy allergy 2021- No .5mL Common extract extract 2-08 [facility] 00:00: - [facility] 00 [facility] allergy allergy 2021- No .5mL Common extract extract 2-08 [facility] 00:00: - [facility] 00 [facility] allergy allergy 2021- No .5mL Common extract extract 2-08 [facility] 00:00: - [facility] 00 [facility] allergy allergy 2021- No .5mL Common extract extract 2- Spirit 00:00: - [facility] 00 [facility] allergy allergy 2021- No .5mL Common extract extract 2- Spirit 00:00: - [facility] 00 [facility] allergy allergy 2021- No .5mL Common extract extract 2- Spirit 00:00: - [facility] 00 [facility] allergy allergy 2021- No .5mL Common extract extract 2- Spirit 00:00: - [facility] 00 [facility] allergy allergy 2021- No .5mL Common extract extract 2- Spirit 00:00: - [facility] 00 [facility] allergy allergy 2021- No .5mL Common extract extract 2- Spirit 00:00: - [facility] 00 [facility] allergy allergy 2021 No .5mL Common extract extract 2- Spirit 00:00: - [facility] 00 [facility] allergy allergy 2021-09 No .5mL Common extract extract 2- Spirit 00:00: - [facility] 00 [facility] allergy allergy 2021-09 No .5mL Common extract extract 2- Spirit 00:00: - [facility] 00 [facility] allergy allergy 2021-09 No .5mL Common extract extract 2- Spirit 00:00: - [facility] 00 [facility] allergy allergy 2021-09 No .5mL Common extract extract 2- Spirit 00:00: - [facility] 00 [facility] allergy allergy 2021-09 No .5mL Common extract extract 2- Spirit 00:00: - [facility] 00 [facility] allergy allergy 2021-09 No .5mL Common extract extract 2- Spirit 00:00: - [facility] 00 [facility] allergy allergy 2021-09 No .5mL Common extract extract 1- Spirit 00:00: - [facility] 00 [facility] allergy allergy 2021-09 No .5mL Common extract extract 1- Spirit 00:00: - [facility] 00 [facility] allergy allergy 2021-09 No .5mL Common extract extract 1- [facility] 00:00: - [facility] 00 [facility] allergy allergy 2021-09 No .5mL Common extract extract 1-22 [facility] 00:00: - [facility] 00 [facility] allergy allergy 2021- No .5mL Common extract extract 1-22 [facility] 00:00: - [facility] 00 [facility] allergy allergy 2021- No .5mL Common extract extract 1-22 [facility] 00:00: - [facility] 00 [facility] allergy allergy 2021- No .5mL Common extract extract 1-22 [facility] 00:00: - [facility] 00 [facility] allergy allergy 2021- No .5mL Common extract extract 1-22 [facility] 00:00: - [facility] 00 [facility] allergy allergy 2021- No .5mL Common extract extract 1-22 [facility] 00:00: - [facility] 00 [facility] allergy allergy 2021- No .5mL Common extract extract 1-22 [facility] 00:00: - [facility] 00 [facility] allergy allergy 2021- No .5mL Common extract extract 1-22 [facility] 00:00: - [facility] 00 [facility] allergy allergy 2021-09 No .5mL Common extract extract 1-22 [facility] 00:00: - [facility] 00 [facility] allergy allergy 2021-09 No .5mL Common extract extract 1-22 [facility] 00:00: - [facility] 00 [facility] allergy allergy 2021-09 No .5mL Common extract extract 1-22 [facility] 00:00: - [facility] 00 [facility] allergy allergy 2021-09 No .5mL Common extract extract 1-22 [facility] 00:00: - [facility] 00 [facility] allergy allergy 2021-09 No .5mL Common extract extract 1-22 [facility] 00:00: - [facility] 00 [facility] allergy allergy 2021-09 No .5mL Common extract extract 1- [facility] 00:00: - [facility] 00 [facility] allergy allergy 2021-09 No .5mL Common extract extract 1-22 [facility] 00:00: - [facility] 00 [facility] allergy allergy 2021-09 No .5mL Common extract extract 1-22 [facility] 00:00: - [facility] 00 [facility] allergy allergy 2021-09 No .5mL Common extract extract 1- [facility] 00:00: - [facility] 00 [facility] allergy allergy 2021-09 No .5mL Common extract extract 1- [facility] 00:00: - [facility] 00 [facility] allergy allergy 2021-09 No .5mL Common extract extract 1- [facility] 00:00: - [facility] 00 [facility] allergy allergy 2021- No .5mL Common extract extract 1-22 [facility] 00:00: - [facility] 00 [facility] allergy allergy 2021- No .5mL Common extract extract 1-22 [facility] 00:00: - [facility] 00 [facility] allergy allergy 2021- No .5mL Common extract extract 1-22 [facility] 00:00: - [facility] 00 [facility] allergy allergy 2021- No .5mL Common extract extract 1-22 [facility] 00:00: - [facility] 00 [facility] allergy allergy 2021- No .5mL Common extract extract 1-22 [facility] 00:00: - [facility] 00 [facility] allergy allergy 2021- No .5mL Common extract extract 1-22 [facility] 00:00: - [facility] 00 [facility] allergy allergy 2021-09 No .5mL Common extract extract 1-22 [facility] 00:00: - [facility] 00 [facility] allergy allergy 2021-09 No .5mL Common extract extract 1-22 [facility] 00:00: - [facility] 00 [facility] allergy allergy 2021-09 No .4mL Common extract extract 1-17 [facility] 00:00: - [facility] 00 [facility] allergy allergy 2021-09 No .4mL Common extract extract 1-17 [facility] 00:00: - [facility] 00 [facility] allergy allergy 2021-09 No .4mL Common extract extract 1-17 [facility] 00:00: - [facility] 00 [facility] allergy allergy 2021-09 No .4mL Common extract extract 1-17 [facility] 00:00: - [facility] 00 [facility] allergy allergy 2021-09 No .4mL Common extract extract 1-17 [facility] 00:00: - [facility] allergy allergy 2021-09 No .4mL Common extract extract 1-17 [facility] 00:00: - [facility] allergy allergy 2021-09 No .4mL Common extract extract 1-17 [facility] 00:00: - [facility] 00 [facility] allergy allergy 2021-09 No .4mL Common extract extract 1-17 [facility] 00:00: - [facility] 00 [facility] allergy allergy 2021-09 No .4mL Common extract extract 1-17 [facility] 00:00: - [facility] allergy allergy 2021-09 No .4mL Common extract extract 1-17 [facility] 00:00: - [facility] 00 [facility] allergy allergy 2021-09 No .4mL Common extract extract 1-17 [facility] 00:00: - [facility] 00 [facility] allergy allergy 2021-09 No .4mL Common extract extract 1-17 [facility] 00:00: - [facility] 00 [facility] allergy allergy 2021-09 No .4mL Common extract extract 1-17 [facility] 00:00: - [facility] 00 [facility] allergy allergy 2021-09 No .4mL Common extract extract 1-17 [facility] 00:00: - [facility] 00 [facility] allergy allergy 2021-09 No .4mL Common extract extract 1-17 [facility] 00:00: - [facility] 00 [facility] allergy allergy 2021-09 No .4mL Common extract extract 1-10 [facility] 00:00: - [facility] 00 [facility] allergy allergy 2021-09 No .4mL Common extract extract 1-10 [facility] 00:00: - [facility] 00 [facility] allergy allergy 2021-09 No .4mL Common extract extract 1-10 [facility] 00:00: - [facility] allergy allergy 2021-09 No .4mL Common extract extract 1-10 [facility] 00:00: - [facility] 00 [facility] allergy allergy 2021-09 No .4mL Common extract extract 1-10 [facility] 00:00: - [facility] allergy allergy 2021-09 No .4mL Common extract extract 1-10 [facility] 00:00: - [facility] allergy allergy 2021-09 No .4mL Common extract extract 1-10 [facility] 00:00: - [facility] allergy allergy 2021-09 No .4mL Common extract extract 1-10 [facility] 00:00: - [facility] allergy allergy 2021-09 No .4mL Common extract extract 1-10 [facility] 00:00: - [facility] allergy allergy 2021-09 No .4mL Common extract extract 1-10 [facility] 00:00: - [facility] allergy allergy 2021-09 No .4mL Common extract extract 1-10 [facility] 00:00: - [facility] allergy allergy 2021-09 No .4mL Common extract extract 1-10 [facility] 00:00: - [facility] allergy allergy 2021-09 No .4mL Common extract extract 1-10 [facility] 00:00: - [facility] 00 [facility] [facility] allergy allergy 2021-09 No .4mL Common extract extract 1-10 [facility] 00[facility]00: - CHI 00 [facility] allergy allergy 2021-09 No .4mL Common extract extract 1[facility]10 [facility] 00:00: - CHI 00 [facility] allergy allergy 2021-09 No .4mL Common extract extract [facility]10 [facility] 00:00: - CHI 00 [facility] allergy allergy 2021-09 No .4mL Common extract extract 1[facility]10 [facility] 00:00: - CHI 00 [facility] allergy allergy 2021-09 No .4mL Common extract extract 1-10 [facility] 00:00: - CHI 00 [facility] allergy allergy 2021-09 No .4mL Common extract extract 1-10 [facility] 00:00: - CHI 00 [facility] allergy allergy 2021-09 No .4mL Common extract extract 1-10 [facility] 00:00: - CHI 00 [facility] allergy allergy 2021-09 No .4mL Common extract extract 1-10 [facility] 00:00: - CHI 00 [facility] allergy allergy 2021-09 No .4mL Common extract extract 1-10 [facility] 00:00: - CHI 00 [facility] allergy allergy 2021-09 No .4mL Common extract extract 1-10 [facility] 00:00: - CHI 00 [facility] allergy allergy 2021-09 No .4mL Common extract extract 1-10 [facility] 00:00: - CHI 00 [facility] allergy allergy 2021-09 No .4mL Common extract extract 1-10 [facility] 00:00: - CHI [facility] allergy allergy 2021-09 No .4mL Common extract extract 1-10 [facility] 00:00: - CHI 00 [facility] allergy allergy 2021-09 No .4mL Common extract extract 1-10 [facility] 00:00: - CHI [facility] allergy allergy 2021-09 No .4mL Common extract extract 1[facility]10 [facility] 00:00: - [facility]I 00 [facility] allergy allergy 2021-09 No .4mL Common extract extract 1-10 [facility] 00:00: - CHI 00 [facility] allergy allergy 2021-09 No .4mL Common extract extract 1-10 [facility] 00:00: - [facility]I 00 [facility] allergy allergy 2021-09 No .4mL Common extract extract 1-10 [facility] 00:00: - [facility]I 00 [facility] allergy allergy 2021-09 No .4mL Common extract extract 1[facility]10 [facility] 00:00: - [facility]I 00 [facility] allergy allergy 2021-09 No .35mL Common extract extract 1-03 [facility] 00:00: - [facility]I 00 [facility] allergy allergy 2021-09 No .3mL Common extract extract 1-03 [facility] 00:00: - CHI 00 [facility] allergy allergy 2021-09 No .35mL Common extract extract 1-03 [facility] 00:00: - CHI 00 [facility] allergy allergy 2021-09 No .3mL Common extract extract 1-03 [facility] 00:00: - CHI 00 [facility] allergy allergy 2021-09 No .35mL Common extract extract 1-03 [facility] 00:00: - [facility]I 00 [facility] allergy allergy 2021-09 No .3mL Common extract extract 1-03 [facility] 00:00: - CHI 00 [facility] allergy allergy 2021-09 No .35mL Common extract extract 1-03 [facility] 00:00: - [facility]I 00 [facility] allergy allergy 2021-09 No .3mL Common extract extract 1-03 [facility] 00:00: - [facility]I 00 [facility] allergy allergy 2021-09 No .35mL Common extract extract 1-03 [facility] 00:00: - [facility]I 00 [facility] allergy allergy 2021-09 No .3mL Common extract extract 1-03 [facility] 00:00: - [facility]I [facility] allergy allergy 2021-09 No .35mL Common extract extract 1-03 [facility] 00:00: - [facility]I 00 [facility] allergy allergy 2021-09 No .3mL Common extract extract 1-03 [facility] 00:00: - [facility]I 00 [facility] allergy allergy 2021-09 No .35mL Common extract extract 1-03 [facility] 00:00: - [facility]I 00 [facility] allergy allergy 2021-09 No .3mL Common extract extract 1-03 [facility] 00:00: - [facility]I [facility] allergy allergy 2021-09 No .35mL Common extract extract 1-03 [facility] 00:00: - CHI 00 [facility] allergy allergy 2021-09 No .3mL Common extract extract 1-03 [facility] 00:00: - [facility]I 00 [facility] allergy allergy 2021-09 No .35mL Common extract extract 1-03 [facility] 00:00: - CHI 00 [facility] allergy allergy 2021-09 No .3mL Common extract extract 1-03 [facility] 00:00: - CHI 00 [facility] allergy allergy 2021-09 No .35mL Common extract extract 1-03 [facility] 00:00: - CHI 00 [facility] allergy allergy 2021- No .3mL Common extract extract 1-03 [facility] 00:00: - [facility]I 00 [facility] allergy allergy 2021-09 No .35mL Common extract extract 1-03 [facility] 00:00: - CHI 00 [facility] allergy allergy 2021-09 No .3mL Common extract extract 1-03 [facility] 00:00: - CHI 00 [facility] allergy allergy 2021-09 No .35mL Common extract extract 1-03 [facility] 00:00: - CHI 00 [facility] allergy allergy 2021-09 No .3mL Common extract extract 1-03 [facility] 00:00: - [facility]I 00 [facility] allergy allergy 2021-09 No .35mL Common extract extract 1-03 [facility] 00:00: - CHI 00 [facility] allergy allergy 2021-09 No .3mL Common extract extract 1-03 [facility] 00:00: - CHI [facility] allergy allergy 2021-09 No .3mL Common extract extract 1-03 [facility] 00:00: - CHI [facility] allergy allergy 2021-09 No .35mL Common extract extract 1-03 [facility] 00:00: - CHI [facility] allergy allergy 2021-09 No .3mL Common extract extract 1-03 [facility] 00:00: - CHI [facility] allergy allergy 2021-09 No .35mL Common extract extract 1-03 [facility] 00:00: - CHI [facility] allergy allergy 2021-09 No .3mL Common extract extract 1-03 [facility] 00:00: - CHI [facility] allergy allergy 2021-09 No .35mL Common extract extract 1-03 [facility] 00:00: - CHI 00 [facility] allergy allergy 2021-09 No .3mL Common extract extract 1-03 [facility] 00:00: - CHI 00 [facility] allergy allergy 2021-09 No .35mL Common extract extract 1-03 [facility] 00:00: - CHI 00 [facility] allergy allergy 2021-09 No .3mL Common extract extract 0-27 [facility] 00:00: - CHI 00 [facility] allergy allergy 2021-09 No .3mL Common extract extract 0-27 [facility] 00:00: - CHI 00 [facility] allergy allergy 2021-09 No .3mL Common extract extract 0-27 [facility] 00:00: - [facility]I 00 [facility] allergy allergy 2021-09 No .3mL Common extract extract 0-27 [facility] 00:00: - CHI 00 [facility] allergy allergy 2021- No .3mL Common extract extract 0-27 [facility] 00:00: - CHI 00 [facility] allergy allergy 2021- No .3mL Common extract extract 0-27 [facility] 00:00: - CHI 00 [facility] allergy allergy 2021- No .3mL Common extract extract 0-27 [facility] 00:00: - CHI 00 [facility] allergy allergy 2021- No .3mL Common extract extract 0-27 [facility] 00:00: - CHI 00 [facility] allergy allergy 2021- No .3mL Common extract extract 0-27 [facility] 00:00: - CHI 00 [facility] allergy allergy 2021- No .3mL Common extract extract 0-27 [facility] 00:00: - CHI 00 [facility] allergy allergy 2021- No .3mL Common extract extract 0-27 [facility] 00:00: - CHI 00 [facility] allergy allergy 2021- No .3mL Common extract extract 0-27 [facility] 00:00: - CHI 00 [facility] allergy allergy 2021- No .3mL Common extract extract 0-27 [facility] 00:00: - CHI 00 [facility] allergy allergy 2021- No .3mL Common extract extract 0-27 [facility] 00:00: - CHI 00 [facility] allergy allergy 2021- No .3mL Common extract extract 0-27 [facility] 00:00: - [facility]I 00 [facility] allergy allergy 2021- No .3mL Common extract extract 0-27 [facility] 00:00: - CHI 00 [facility] allergy allergy 2021- No .3mL Common extract extract 0-27 [facility] 00:00: - [facility]I 00 [facility] allergy allergy 2021- No .3mL Common extract extract 0-27 [facility] 00:00: - CHI 00 [facility] allergy allergy 2021- No .3mL Common extract extract 0-27 [facility] 00:00: - [facility]I 00 [facility] allergy allergy 2021- No .3mL Common extract extract 0-27 [facility] 00:00: - CHI 00 [facility] allergy allergy 2021-09 No .3mL Common extract extract 0-27 [facility] 00:00: - [facility]I 00 [facility] allergy allergy 2021- No .3mL Common extract extract 0-27 [facility] 00:00: - CHI 00 [facility] allergy allergy 2021- No .3mL Common extract extract 0-27 [facility] 00:00: - CHI 00 [facility] allergy allergy 2021- No .3mL Common extract extract 0-27 [facility] 00:00: - CHI 00 [facility] allergy allergy 2021- No .3mL Common extract extract 0-27 [facility] 00:00: - CHI 00 [facility] allergy allergy 2021- No .3mL Common extract extract 0-27 [facility] 00:00: - [facility]I 00 [facility] allergy allergy 2021- No .3mL Common extract extract 0-27 [facility] 00:00: - [facility]I 00 [facility] allergy allergy 2021- No .3mL Common extract extract 0-27 [facility] 00:00: - CHI 00 [facility] allergy allergy 2021- No .3mL Common extract extract 0-27 [facility] 00:00: - CHI 00 [facility] allergy allergy 2021- No .3mL Common extract extract 0-27 [facility] 00:00: - CHI 00 [facility] allergy allergy 2021- No .3mL Common extract extract 0-27 [facility] 00:00: - CHI 00 [facility] allergy allergy 2021- No .3mL Common extract extract 0-27 [facility] 00:00: - CHI 00 [facility] allergy allergy 2021- No .3mL Common extract extract 0-27 [facility] 00:00: - CHI 00 [facility] allergy allergy 2021- No .3mL Common extract extract 0-27 [facility] 00:00: - CHI 00 [facility] allergy allergy 2021- No .3mL Common extract extract 0-27 [facility] 00:00: - [facility]I 00 [facility] allergy allergy 2021- No .3mL Common extract extract 0-27 [facility] 00:00: - CHI 00 [facility] Rosuvastati Rosuvastati 2021- No 1{table QD Rosuvastat n Calcium 5 n Calcium 5 0-20 t} in Calcium MG MG 00:00: 5 MG 00 allergy allergy 2021-09 No .25mL Common extract extract 0-20 [facility] 00:00: - [facility]I 00 [facility] allergy allergy 2021-09 No .25mL Common extract extract 0-20 [facility] 00:00: - [facility]I 00 [facility] Rosuvastati Rosuvastati 2021-09 No 1{table QD Rosuvastat n Calcium 5 n Calcium 5 0-20 t} in Calcium MG MG 00:00: 5 MG 00 allergy allergy 2021-09 No .25mL Common extract extract 0-20 [facility] 00:00: - [facility]I 00 [facility] allergy allergy 2021-09 No .25mL Common extract extract 0-20 [facility] 00:00: - [facility]I 00 [facility] Rosuvastati Rosuvastati 2021-09 No 1{table QD Rosuvastat n Calcium 5 n Calcium 5 0-20 t} in Calcium MG MG 00:00: 5 MG 00 allergy allergy 2021-09 No .25mL Common extract extract 0-20 [facility] 00:00: - [facility]I 00 [facility] allergy allergy 2021-09 No .25mL Common extract extract 0-20 [facility] 00:00: - [facility]I 00 [facility] Rosuvastati Rosuvastati 2021-09 No 1{table QD Rosuvastat n Calcium 5 n Calcium 5 0-20 t} in Calcium MG MG 00:00: 5 MG 00 allergy allergy 2021-09 No .25mL Common extract extract 0-20 [facility] 00:00: - CHI 00 [facility] allergy allergy 2021-09 No .25mL Common extract extract 0-20 [facility] 00:00: - CHI 00 [facility] Rosuvastati Rosuvastati 2021-09 No 1{table QD Rosuvastat n Calcium 5 n Calcium 5 0-20 t} in Calcium MG MG 00:00: 5 MG 00 allergy allergy 2021-09 No .25mL Common extract extract 0-20 [facility] 00:00: - CHI 00 [facility] allergy allergy 2021-09 No .25mL Common extract extract 0-20 [facility] 00:00: - CHI 00 [facility] Rosuvastati Rosuvastati 2021-09 No 1{table QD Rosuvastat n Calcium 5 n Calcium 5 0-20 t} in Calcium MG MG 00:00: 5 MG 00 allergy allergy 2021-09 No .25mL Common extract extract 0-20 [facility] 00:00: - [facility]I 00 [facility] allergy allergy 2021-09 No .25mL Common extract extract 0-20 [facility] 00:00: - [facility]I 00 [facility] Rosuvastati Rosuvastati 2021-09 No 1{table QD Rosuvastat n Calcium 5 n Calcium 5 0-20 t} in Calcium MG MG 00:00: 5 MG 00 allergy allergy 2021-09 No .25mL Common extract extract 0-20 [facility] 00:00: - CHI 00 [facility] allergy allergy 2021-09 No .25mL Common extract extract 0-20 [facility] 00:00: - CHI 00 [facility] Rosuvastati Rosuvastati 2021-09 No 1{table QD Rosuvastat n Calcium 5 n Calcium 5 0-20 t} in Calcium MG MG 00:00: 5 MG 00 allergy allergy 2021-09 No .25mL Common extract extract 0-20 [facility] 00:00: - CHI 00 [facility] allergy allergy 2021-09 No .25mL Common extract extract 0-20 [facility] 00:00: - CHI 00 [facility] Rosuvastati Rosuvastati 2021-09 No 1{table QD Rosuvastat n Calcium 5 n Calcium 5 0-20 t} in Calcium MG MG 00:00: 5 MG 00 allergy allergy 2021-09 No .25mL Common extract extract 0-20 [facility] 00:00: - CHI 00 [facility] allergy allergy 2021-09 No .25mL Common extract extract 0-20 [facility] 00:00: - CHI 00 [facility] Rosuvastati Rosuvastati 2021-09 No 1{table QD Rosuvastat n Calcium 5 n Calcium 5 0-20 t} in Calcium MG MG 00:00: 5 MG 00 allergy allergy 2021-09 No .25mL Common extract extract 0-20 [facility] 00:00: - [facility]I 00 [facility] allergy allergy 2021-09 No .25mL Common extract extract 0-20 [facility] 00:00: - CHI 00 [facility] Rosuvastati Rosuvastati 2021-09 No 1{table QD Rosuvastat n Calcium 5 n Calcium 5 0-20 t} in Calcium MG MG 00:00: 5 MG 00 allergy allergy 2021-09 No .25mL Common extract extract 0-20 [facility] 00:00: - CHI 00 [facility] allergy allergy 2021-09 No .25mL Common extract extract 0-20 [facility] 00:00: - CHI 00 [facility] Rosuvastati Rosuvastati 2021-09 No 1{table QD Rosuvastat n Calcium 5 n Calcium 5 0-20 t} in Calcium MG MG 00:00: 5 MG 00 allergy allergy 2021-09 No .25mL Common extract extract 0-20 [facility] 00:00: - [facility]I 00 [facility] allergy allergy 2021-09 No .25mL Common extract extract 0-20 [facility] 00:00: - [facility]I 00 [facility] Rosuvastati Rosuvastati 2021-09 No 1{table QD Rosuvastat n Calcium 5 n Calcium 5 0-20 t} in Calcium MG MG 00:00: 5 MG 00 allergy allergy 2021-09 No .25mL Common extract extract 0-20 [facility] 00:00: - [facility]I 00 [facility] allergy allergy 2021-09 No .25mL Common extract extract 0-20 [facility] 00:00: - [facility]I 00 [facility] Rosuvastati Rosuvastati 2021-09 No 1{table QD Rosuvastat n Calcium 5 n Calcium 5 0-20 t} in Calcium MG MG 00:00: 5 MG 00 allergy allergy 2021-09 No .25mL Common extract extract 0[facility]20 [facility] 00:00: - [facility]I 00 [facility] allergy allergy 2021-09 No .25mL Common extract extract 0-20 [facility] 00:00: - CHI 00 [facility] Rosuvastati Rosuvastati 2021-09 No 1{table QD Rosuvastat n Calcium 5 n Calcium 5 0-20 t} in Calcium MG MG 00:00: 5 MG 00 allergy allergy 2021-09 No .25mL Common extract extract 0-20 [facility] 00:00: - CHI 00 [facility] allergy allergy 2021-09 No .25mL Common extract extract 0-20 [facility] 00:00: - [facility]I 00 [facility] Rosuvastati Rosuvastati 2021-09 No 1{table QD Rosuvastat n Calcium 5 n Calcium 5 0-20 t} in Calcium MG MG 00:00: 5 MG 00 allergy allergy 2021-09 No .25mL Common extract extract 0-20 [facility] 00:00: - CHI 00 [facility] allergy allergy 2021-09 No .25mL Common extract extract 0-20 [facility] 00:00: - CHI 00 [facility] Rosuvastati Rosuvastati 2021-09 No 1{table QD Rosuvastat n Calcium 5 n Calcium 5 0-20 t} in Calcium MG MG 00:00: 5 MG 00 allergy allergy 2021-09 No .25mL Common extract extract 0-20 [facility] 00:00: - CHI 00 [facility] allergy allergy 2021-09 No .25mL Common extract extract 0-20 [facility] 00:00: - CHI 00 [facility] Rosuvastati Rosuvastati 2021-09 No 1{table QD Rosuvastat n Calcium 5 n Calcium 5 0-20 t} in Calcium MG MG 00:00: 5 MG 00 allergy allergy 2021-09 No .25mL Common extract extract 0-20 [facility] 00:00: - CHI 00 [facility] allergy allergy 2021-09 No .25mL Common extract extract 0-20 [facility] 00:00: - CHI 00 [facility] Rosuvastati Rosuvastati 2021-09 No 1{table QD Rosuvastat n Calcium 5 n Calcium 5 0-20 t} in Calcium MG MG 00:00: 5 MG 00 allergy allergy 2021-09 No .25mL Common extract extract 0-20 [facility] 00:00: - CHI 00 [facility] allergy allergy 2021-09 No .25mL Common extract extract 0-20 [facility] 00:00: - CHI 00 [facility] Rosuvastati Rosuvastati 2021-09 No 1{table QD Rosuvastat n Calcium 5 n Calcium 5 0-20 t} in Calcium MG MG 00:00: 5 MG 00 allergy allergy 2021-09 No .25mL Common extract extract 0-20 [facility] 00:00: - CHI 00 [facility] allergy allergy 2021-09 No .25mL Common extract extract 0-20 [facility] 00:00: - CHI 00 [facility] allergy allergy 2021-09 No .2mL Common extract extract 0-13 [facility] 00:00: - CHI 00 [facility] allergy allergy 2021- No .2mL Common extract extract 0-13 [facility] 00:00: - CHI 00 [facility] allergy allergy 2021- No .2mL Common extract extract 0-13 [facility] 00:00: - CHI 00 [facility] allergy allergy 2021-09 No .2mL Common extract extract 0-13 [facility] 00:00: - CHI 00 [facility] allergy allergy 2021- No .2mL Common extract extract 0-13 [facility] 00:00: - CHI 00 [facility] allergy allergy 2021-09 No .2mL Common extract extract 0-13 [facility] 00:00: - CHI 00 [facility] allergy allergy 2021-09 No .2mL Common extract extract 0-13 [facility] 00:00: - CHI 00 [facility] allergy allergy 2021- No .2mL Common extract extract 0-13 [facility] 00:00: - CHI [facility] allergy allergy 2021-09 No .2mL Common extract extract 0-13 [facility] 00:00: - CHI [facility] allergy allergy 2021-09 No .2mL Common extract extract 0-13 [facility] 00:00: - CHI [facility] allergy allergy 2021-09 No .2mL Common extract extract 0-13 [facility] 00:00: - CHI 00 [facility] allergy allergy 2021- No .2mL Common extract extract 0-13 [facility] 00:00: - CHI [facility] allergy allergy 2021- No .2mL Common extract extract 0-13 [facility] 00:00: - CHI 00 [facility] allergy allergy 2021- No .2mL Common extract extract 0-13 [facility] 00:00: - CHI 00 [facility] allergy allergy 2021- No .2mL Common extract extract 0-13 [facility] 00:00: - CHI 00 [facility] allergy allergy 2021- No .2mL Common extract extract 0-13 [facility] 00:00: - CHI 00 [facility] allergy allergy 2021- No .2mL Common extract extract 0-13 [facility] 00:00: - CHI 00 [facility] allergy allergy 2021- No .2mL Common extract extract 0-13 [facility] 00:00: - CHI [facility] allergy allergy 2021-09 No .2mL Common extract extract 0-13 [facility] 00:00: - CHI 00 [facility] allergy allergy 2021-09 No .2mL Common extract extract 0-13 [facility] 00:00: - CHI 00 [facility] allergy allergy 2021-09 No .2mL Common extract extract 0-13 [facility] 00:00: - CHI 00 [facility] allergy allergy 2021-09 No .2mL Common extract extract 0-13 [facility] 00:00: - CHI 00 [facility] allergy allergy 2021-09 No .2mL Common extract extract 0-13 [facility] 00:00: - CHI 00 [facility] allergy allergy 2021-09 No .2mL Common extract extract 0-13 [facility] 00:00: - CHI 00 [facility] allergy allergy 2021-09 No .2mL Common extract extract 0-13 [facility] 00:00: - CHI [facility] allergy allergy 2021-09 No .2mL Common extract extract 0-13 [facility] 00:00: - CHI [facility] allergy allergy 2021-09 No .2mL Common extract extract 0-13 [facility] 00:00: - CHI 00 [facility] allergy allergy 2021-09 No .2mL Common extract extract 0-13 [facility] 00:00: - CHI 00 [facility] allergy allergy 2021-09 No .2mL Common extract extract 0-13 [facility] 00:00: - CHI 00 [facility] allergy allergy 2021-09 No .2mL Common extract extract 0-13 [facility] 00:00: - CHI [facility] allergy allergy 2021-09 No .2mL Common extract extract 0-13 [facility] 00:00: - CHI 00 [facility] allergy allergy 2021-09 No .2mL Common extract extract 0-13 [facility] 00:00: - CHI 00 [facility] allergy allergy 2021-09 No .2mL Common extract extract 0-13 [facility] 00:00: - CHI 00 [facility] allergy allergy 2021-09 No .2mL Common extract extract 0-13 [facility] 00:00: - CHI 00 [facility] allergy allergy 2021- No .2mL Common extract extract 0-13 [facility] 00:00: - CHI 00 [facility] allergy allergy 2021- No .2mL Common extract extract 0-13 [facility] 00:00: - CHI 00 [facility] allergy allergy 2021- No .2mL Common extract extract 0-13 [facility] 00:00: - CHI 00 [facility] allergy allergy 2021-09 No .2mL Common extract extract 0-13 [facility] 00:00: - CHI 00 [facility] allergy allergy 2021-09 No .2mL Common extract extract 0-13 [facility] 00:00: - CHI 00 [facility] allergy allergy 2021-09 No .2mL Common extract extract 0-13 [facility] 00:00: - CHI 00 [facility] allergy allergy 2021-09 No .2mL Common extract extract 0-13 [facility] 00:00: - CHI 00 [facility] allergy allergy 2021-09 No .2mL Common extract extract 0-13 [facility] 00:00: - CHI 00 [facility] allergy allergy 2021-09 No .15mL Common extract extract 0-06 [facility] 00:00: - CHI 00 [facility] allergy allergy 2021- No .15mL Common extract extract 0-06 [facility] 00:00: - CHI 00 [facility] allergy allergy 2021-09 No .15mL Common extract extract 0-06 [facility] 00:00: - CHI 00 [facility] allergy allergy 2021- No .15mL Common extract extract 0-06 [facility] 00:00: - CHI 00 [facility] allergy allergy 2021- No .15mL Common extract extract 0-06 [facility] 00:00: - CHI 00 [facility] allergy allergy 2021- No .15mL Common extract extract 0-06 [facility] 00:00: - CHI 00 [facility] allergy allergy 2021- No .15mL Common extract extract 0-06 [facility] 00:00: - CHI 00 [facility] allergy allergy 2021- No .15mL Common extract extract 0-06 [facility] 00:00: - CHI 00 [facility] allergy allergy 2021- No .15mL Common extract extract 0-06 [facility] 00:00: - CHI 00 [facility] allergy allergy 2021- No .15mL Common extract extract 0-06 [facility] 00:00: - CHI 00 [facility] allergy allergy 2021- No .15mL Common extract extract 0-06 [facility] 00:00: - CHI 00 [facility] allergy allergy 2021- No .15mL Common extract extract 0-06 [facility] 00:00: - CHI 00 [facility] allergy allergy 2021- No .15mL Common extract extract 0-06 [facility] 00:00: - CHI 00 [facility] allergy allergy 2021- No .15mL Common extract extract 0-06 [facility] 00:00: - CHI 00 [facility] allergy allergy 2021- No .15mL Common extract extract 0-06 [facility] 00:00: - CHI 00 [facility] allergy allergy 2021- No .15mL Common extract extract 0-06 [facility] 00:00: - CHI 00 [facility] allergy allergy 2021- No .15mL Common extract extract 0-06 [facility] 00:00: - CHI 00 [facility] allergy allergy 2021- No .15mL Common extract extract 0-06 [facility] 00:00: - CHI 00 [facility] allergy allergy 2021- No .15mL Common extract extract 0-06 [facility] 00:00: - CHI 00 [facility] allergy allergy 2021- No .15mL Common extract extract 0-06 [facility] 00:00: - CHI 00 [facility] allergy allergy 2021- No .15mL Common extract extract 0-06 [facility] 00:00: - CHI 00 [facility] allergy allergy 2021- No .15mL Common extract extract 0-06 [facility] 00:00: - CHI 00 [facility] allergy allergy 2021- No .15mL Common extract extract 0-06 [facility] 00:00: - CHI 00 [facility] allergy allergy 2021- No .15mL Common extract extract 0-06 [facility] 00:00: - CHI 00 [facility] allergy allergy 2021- No .15mL [facility] extract extract [facility] 00:[facility]: - [facility] 00 [facility] allergy allergy 2021- No .15mL Common extract extract 0[facility]06 [facility] 00:00: - [facility] 00 [facility] allergy allergy 2021- No .15mL Common extract extract 0[facility]06 [facility] 00:00: - [facility] 00 [facility] allergy allergy 2021- No .15mL [facility] extract extract 0[facility] 00:00: - [facility] 00 [facility] allergy allergy 2021- No .15mL Common extract extract 0[facility] 00:00: - [facility] 00 [facility] allergy allergy 2021- No .15mL [facility] extract extract 0[facility] 00:00: - [facility] 00 [facility] allergy allergy 2021- No .15mL [facility] extract extract 0[facility]06 [facility] 00:00: - [facility] 00 [facility] allergy allergy 2021- No .15mL [facility] extract extract 0[facility] 00:00: - [facility] 00 [facility] allergy allergy 2021- No .15mL [facility] extract extract 0[facility]06 [facility] 00:00: - [facility] 00 [facility] allergy allergy 2021- No .15mL [facility] extract extract 0[facility]06 [facility] 00:00: - [facility] 00 [facility] allergy allergy 2021- No .15mL Common extract extract 0[facility] 00:00: - [facility] 00 [facility] allergy allergy 2021-09 No .15mL [facility] extract extract 0[facility] 00:00: - [facility] 00 [facility] allergy allergy 2021- No .15mL [facility] extract extract 0[facility] 00:00: - [facility] 00 [facility] allergy allergy 2021- No .15mL Common extract extract 0[facility]06 [facility] 00:00: - [facility] 00 [facility] allergy allergy 2021-09 No .15mL Common extract extract 0[facility]06 [facility] 00:00: - [facility] 00 [facility] allergy allergy 2021- No .15mL [facility] extract extract 0[facility] 00:00: - [facility] 00 [facility] allergy allergy 2021- No .15mL [facility] extract extract 0[facility] 00:00: - [facility] 00 [facility] allergy allergy 2021- No .15mL [facility] extract extract 0[facility]06 [facility] 00:00: - [facility] 00 [facility] allergy allergy 2021- No .15mL [facility] extract extract 0[facility] 00:00: - [facility] 00 [facility] allergy allergy 2021- No .15mL [facility] extract extract 0[facility] 00:00: - [facility] 00 [facility] allergy allergy 2021- No .15mL [facility] extract extract 0[facility] 00:00: - [facility] 00 [facility] allergy allergy 2022-1 No .15mL Common extract extract 006 [facility] 00:00: - [facility] allergy allergy 2-0 No .1mL Common extract extract 06-09 [facility] 00:00: - [facility] 00 [facility] allergy allergy 2-0 No .1mL Common extract extract 06-09 [facility] 00:00: - [facility] 00 [facility] allergy allergy 2-0 No .1mL Common extract extract 06-09 [facility] 00:00: - [facility] 00 [facility] allergy allergy 2-0 No .1mL Common extract extract 06-09 [facility] 00:00: - [facility] 00 [facility] allergy allergy 2-0 No .1mL Common extract extract 06-09 [facility] 00:00: - [facility] 00 [facility] allergy allergy 2-0 No .1mL Common extract extract 06-09 [facility] 00:00: - [facility] allergy allergy 2-0 No .1mL Common extract extract 06-09 [facility] 00:00: - [facility] allergy allergy 2-0 No .1mL Common extract extract 06-09 [facility] 00:00: - [facility] 00 [facility] allergy allergy 2-0 No .1mL Common extract extract 06-09 [facility] 00:00: - [facility] 00 [facility] allergy allergy 2-0 No .1mL Common extract extract 06-09 [facility] 00:00: - [facility] 00 [facility] allergy allergy 2-0 No .1mL Common extract extract 06-09 [facility] 00:00: - [facility] allergy allergy 2-0 No .1mL Common extract extract 06-09 [facility] 00:00: - [facility] 00 [facility] allergy allergy 2022-0 No .1mL Common extract extract 06-09 [facility] 00:00: - [facility] 00 [facility] allergy allergy 2-0 No .1mL Common extract extract 06-09 [facility] 00:00: - [facility] 00 [facility] allergy allergy 2-0 No .1mL Common extract extract 06-09 [facility] 00:00: - [facility] 00 [facility] allergy allergy 2022-0 No .1mL [facility] extract extract 06-09 [facility] 00:00: - [facility] 00 [facility] allergy allergy 2022-0 No .1mL Common extract extract 06-09 [facility] 00:00: - [facility] 00 [facility] allergy allergy 2022-0 No .1mL Common extract extract 06-09 [facility] 00:00: - [facility] 00 [facility] allergy allergy 2022-0 No .1mL Common extract extract 06-09 [facility] 00:00: - [facility] 00 [facility] allergy allergy 2022-0 No .1mL Common extract extract 06-09 [facility] 00:00: - [facility] 00 [facility] allergy allergy 2022-0 No .1mL Common extract extract 06-09 [facility] 00:00: - [facility] 00 [facility] allergy allergy 2-0 No .1mL Common extract extract 06-09 [facility] 00:00: - [facility] 00 [facility] allergy allergy 2-0 No .1mL Common extract extract 06-09 [facility] 00:00: - [facility] 00 [facility] allergy allergy 2022-0 No .1mL Common extract extract 06-09 [facility] 00:00: - [facility] allergy allergy 2-0 No .1mL Common extract extract 06-09 [facility] 00:00: - [facility] 00 [facility] allergy allergy 2-0 No .1mL Common extract extract 06-09 [facility] 00:00: - [facility] allergy allergy 2-0 No .1mL Common extract extract 06-09 [facility] 00:00: - [facility] 00 [facility] allergy allergy 2022-0 No .1mL [facility] extract extract 06-09 [facility] 00:00: - [facility] allergy allergy 2022-0 No .1mL Common extract extract 06-09 [facility] 00:00: - [facility] 00 [facility] allergy allergy 2022-0 No .1mL Common extract extract 06-09 [facility] 00:00: - [facility] 00 [facility] allergy allergy 2022-0 No .1mL Common extract extract 06-09 [facility] 00:00: - [facility] 00 [facility] allergy allergy 2022-0 No .1mL [facility] extract extract 06-09 [facility] 00:00: - [facility] 00 [facility] allergy allergy 2022-0 No .1mL Common extract extract 06-09 [facility] 00:00: - [facility] 00 [facility] allergy allergy 2022-0 No .1mL Common extract extract 06-09 [facility] 00:00: - [facility] allergy allergy 2022-0 No .1mL Common extract extract 06-09 [facility] 00:00: - [facility] allergy allergy 2022-0 No .1mL [facility] extract extract 06-09 [facility] 00:00: - [facility] 00 [facility] allergy allergy 2022-0 No .1mL Common extract extract 06-09 [facility] 00:00: - [facility] 00 [facility] allergy allergy 2022-0 No .1mL Common extract extract 06-09 [facility] 00:00: - [facility] 00 [facility] allergy allergy 2022-0 No .1mL [facility] extract extract 06-09 [facility] 00:00: - [facility] allergy allergy 2-0 No .1mL [facility] extract extract 06-09 [facility] 00:00: - [facility] allergy allergy 2022-0 No .1mL [facility] extract extract 06-09 [facility] 00:00: - [facility] allergy allergy 2-0 No .1mL Common extract extract 06-09 [facility] 00:00: - [facility] allergy allergy 2022-0 No .1mL Common extract extract 06-09 [facility] 00:00: - [facility] 00 [facility] allergy allergy 2022-0 No .1mL [facility] extract extract 06-09 [facility] 00:00: - [facility] allergy allergy 2022-0 No .1mL Common extract extract 06-09 [facility] 00:00: - [facility] allergy allergy 2022-0 No .1mL Common extract extract 06-09 [facility] 00:00: - [facility] allergy allergy 2022-0 No .1mL [facility] extract extract 06-09 [facility] 00:00: - [facility] 00 [facility] allergy allergy 2022-0 No .1mL [facility] extract extract 06-09 [facility] 00:00: - [facility] 00 [facility] allergy allergy 2022-0 No .1mL Common extract extract 06-09 [facility] 00:00: - [facility] 00 [facility] allergy allergy 2022-0 No .1mL [facility] extract extract 06-09 [facility] 00:00: - [facility] allergy allergy 2022-0 No .1mL [facility] extract extract 05-19 [facility] 00:00: - [facility] 00 [facility] allergy allergy 2022-0 No .1mL [facility] extract extract 05-19 [facility] 00:00: - [facility] 00 [facility] allergy allergy 2-0 No .1mL [facility] extract extract 05-19 [facility] 00:00: - [facility] 00 [facility] allergy allergy 2-0 No .1mL Common extract extract 05-19 [facility] 00:00: - [facility] 00 [facility] allergy allergy 2-0 No .1mL [facility] extract extract 05-19 [facility] 00:00: - [facility] 00 [facility] allergy allergy 2-0 No .1mL [facility] extract extract 05-19 [facility] 00:00: - [facility] 00 [facility] allergy allergy 2-0 No .1mL Common extract extract 05-19 [facility] 00:00: - [facility] 00 [facility] allergy allergy 2-0 No .1mL Common extract extract 05-19 [facility] 00:00: - [facility] 00 [facility] allergy allergy 2-0 No .1mL Common extract extract 05-19 [facility] 00:00: - [facility] 00 [facility] allergy allergy 2-0 No .1mL Common extract extract 05-19 [facility] 00:00: - [facility] 00 [facility] allergy allergy 2-0 No .1mL Common extract extract 05-19 [facility] 00:00: - [facility] 00 [facility] allergy allergy 2-0 No .1mL Common extract extract 05-19 [facility] 00:00: - [facility] 00 [facility] allergy allergy 2-0 No .1mL Common extract extract 05-19 [facility] 00:00: - [facility] 00 [facility] allergy allergy 2022-0 No .1mL Common extract extract 05-19 [facility] 00:00: - [facility] 00 [facility] allergy allergy 2022-0 No .1mL [facility] extract extract 05-19 [facility] 00:00: - [facility] 00 [facility] allergy allergy 2022-0 No .1mL [facility] extract extract 05-19 [facility] 00:00: - [facility] 00 [facility] allergy allergy 2022-0 No .1mL [facility] extract extract 05-19 [facility] 00:00: - [facility] 00 [facility] allergy allergy 2022-0 No .1mL Common extract extract 05-19 [facility] 00:00: - [facility] 00 [facility] allergy allergy 2022-0 No .1mL [facility] extract extract 05-19 [facility] 00:00: - [facility] 00 [facility] allergy allergy 2-0 No .1mL Common extract extract 05-19 [facility] 00:00: - [facility] 00 [facility] allergy allergy 2-0 No .1mL Common extract extract 05-19 [facility] 00:00: - [facility] 00 [facility] allergy allergy 2-0 No .1mL Common extract extract 05-19 [facility] 00:00: - [facility] 00 [facility] allergy allergy 2-0 No .1mL Common extract extract 05-19 [facility] 00:00: - [facility] 00 [facility] allergy allergy 2-0 No .1mL Common extract extract 05-19 [facility] 00:00: - [facility] 00 [facility] allergy allergy 2-0 No .1mL Common extract extract 05-19 [facility] 00:00: - [facility] 00 [facility] allergy allergy 2-0 No .1mL Common extract extract 05-19 [facility] 00:00: - [facility] 00 [facility] allergy allergy 2-0 No .1mL Common extract extract 05-19 [facility] 00:00: - [facility] 00 [facility] allergy allergy 2-0 No .1mL Common extract extract 05-19 [facility] 00:00: - [facility] 00 [facility] allergy allergy 2-0 No .1mL Common extract extract 05-19 [facility] 00:00: - [facility] 00 [facility] allergy allergy 2-0 No .1mL Common extract extract 05-19 [facility] 00:00: - [facility] 00 [facility] allergy allergy 2022-0 No .1mL [facility] extract extract 05-19 [facility] 00:00: - [facility] 00 [facility] allergy allergy 2022-0 No .1mL Common extract extract 05-19 [facility] 00:00: - [facility] 00 [facility] allergy allergy 2022-0 No .1mL Common extract extract 05-19 [facility] 00:00: - [facility] 00 [facility] allergy allergy 2022-0 No .1mL Common extract extract 05-19 [facility] 00:00: - [facility] 00 [facility] allergy allergy 2022-0 No .1mL Common extract extract 05-19 [facility] 00:00: - [facility] 00 [facility] allergy allergy 2022-0 No .1mL Common extract extract 05-19 [facility] 00:00: - [facility] 00 [facility] allergy allergy 2022-0 No .1mL Common extract extract 05-19 [facility] 00:00: - [facility] 00 [facility] allergy allergy 2022-0 No .1mL Common extract extract 05-19 [facility] 00:00: - [facility] 00 [facility] allergy allergy 2022-0 No .1mL Common extract extract 05-19 [facility] 00:00: - [facility] 00 [facility] allergy allergy 2022-0 No .1mL [facility] extract extract 05-19 [facility] 00:00: - [facility] 00 [facility] allergy allergy 2022-0 No .1mL Common extract extract 05-19 [facility] 00:00: - [facility] 00 [facility] allergy allergy 2022-0 No .1mL Common extract extract 05-19 [facility] 00:00: - [facility] 00 [facility] allergy allergy 2022-0 No .1mL Common extract extract 05-19 [facility] 00:00: - [facility] 00 [facility] allergy allergy 2022-0 No .1mL Common extract extract 05-19 [facility] 00:00: - [facility] 00 [facility] allergy allergy 2022-0 No .1mL Common extract extract 05-19 [facility] 00:00: - [facility] 00 [facility] allergy allergy 2022-0 No .1mL Common extract extract 05-19 [facility] 00:00: - [facility] 00 [facility] allergy allergy 2022-0 No .1mL Common extract extract 05-19 [facility] 00:00: - [facility] 00 [facility] allergy allergy 2022-0 No .1mL [facility] extract extract 05-19 [facility] 00:00: - [facility] 00 [facility] allergy allergy 2022-0 No .1mL Common extract extract 05-19 [facility] 00:00: - [facility] 00 [facility] allergy allergy 2022-0 No .1mL [facility] extract extract 05-19 [facility] 00:00: - [facility] 00 [facility] allergy allergy 2022-0 No .1mL Common extract extract 05-19 [facility] 00:00: - [facility] 00 [facility] allergy allergy 2022-0 No .1mL [facility] extract extract 05-19 [facility] 00:00: - [facility] 00 [facility] allergy allergy 2022-0 No .1mL Common extract extract 05-19 [facility] 00:00: - [facility] 00 [facility] allergy allergy 2022-0 No .1mL Common extract extract 05-19 [facility] 00:00: - [facility] 00 [facility] allergy allergy 2022-0 No .1mL Common extract extract 05-19 [facility] 00:00: - [facility] 00 [facility] allergy allergy 2022-0 No .1mL Common extract extract 05-19 [facility] 00:00: - [facility] 00 [facility] allergy allergy 2022-0 No .1mL [facility] extract extract 05-19 [facility] 00:00: - [facility] 00 [facility] allergy allergy 2-0 No .1mL [facility] extract extract 05-19 [facility] 00:00: - [facility] 00 [facility] allergy allergy 2-0 No .1mL [facility] extract extract 05-19 [facility] 00:00: - [facility] 00 [facility] allergy allergy 2-0 No .1mL [facility] extract extract 05-19 [facility] 00:00: - [facility] allergy allergy 2-0 No .05mL [facility] extract extract 05-12 [facility] 00:00: - [facility] 00 [facility] allergy allergy 2022-0 No .05mL [facility] extract extract 05-12 [facility] 00:00: - [facility] 00 [facility] allergy allergy 2022-0 No .05mL [facility] extract extract 05-12 [facility] 00:00: - [facility] 00 [facility] allergy allergy 2022-0 No .05mL [facility] extract extract 05-12 [facility] 00:00: - [facility] 00 [facility] allergy allergy 2022-0 No .05mL [facility] extract extract 05-12 [facility] 00:00: - [facility] 00 [facility] allergy allergy 2022-0 No .05mL [facility] extract extract 05-12 [facility] 00:00: - [facility] 00 [facility] allergy allergy 2022-0 No .05mL [facility] extract extract 05-12 [facility] 00:00: - [facility] 00 [facility] allergy allergy 2022-0 No .05mL [facility] extract extract 05-12 [facility] 00:00: - [facility] 00 [facility] allergy allergy 2022-0 No .05mL [facility] extract extract 05-12 [facility] 00:00: - [facility] 00 [facility] allergy allergy 2022-0 No .05mL [facility] extract extract 05-12 [facility] 00:00: - [facility] 00 [facility] allergy allergy 2022-0 No .05mL [facility] extract extract 05-12 [facility] 00:00: - [facility] 00 [facility] allergy allergy 2022-0 No .05mL [facility] extract extract 05-12 [facility] 00:00: - [facility] 00 [facility] allergy allergy 2022-0 No .05mL [facility] extract extract 05-12 [facility] 00:00: - [facility] 00 [facility] allergy allergy 2022-0 No .05mL [facility] extract extract 05-12 [facility] 00:00: - [facility] 00 [facility] allergy allergy 2022-0 No .05mL [facility] extract extract 05-12 [facility] 00:00: - [facility] 00 [facility] allergy allergy 2022-0 No .05mL [facility] extract extract 05-12 [facility] 00:00: - [facility] 00 [facility] allergy allergy 2022-0 No .05mL [facility] extract extract 05-12 [facility] 00:00: - [facility] 00 [facility] allergy allergy 2022-0 No .05mL [facility] extract extract 05-12 [facility] 00:00: - [facility] 00 [facility] allergy allergy 2022-0 No .05mL [facility] extract extract 05-12 [facility] 00:00: - [facility] 00 [facility] allergy allergy 2022-0 No .05mL [facility] extract extract 05-12 [facility] 00:00: - [facility] 00 [facility] allergy allergy 2022-0 No .05mL [facility] extract extract 05-12 [facility] 00:00: - [facility] 00 [facility] allergy allergy 2022-0 No .05mL [facility] extract extract 05-12 [facility] 00:00: - [facility] 00 [facility] allergy allergy 2022-0 No .05mL [facility] extract extract 05-12 [facility] 00:00: - [facility] 00 [facility] allergy allergy 2022-0 No .05mL Common extract extract 05-12 [facility] 00:00: - [facility] 00 [facility] allergy allergy 2022-0 No .05mL [facility] extract extract 05-12 [facility] 00:00: - [facility] 00 [facility] allergy allergy 2022-0 No .05mL Common extract extract 05-12 [facility] 00:00: - [facility] 00 [facility] allergy allergy 2022-0 No .05mL [facility] extract extract 05-12 [facility] 00:00: - [facility] 00 [facility] allergy allergy 2022-0 No .05mL [facility] extract extract 05-12 [facility] 00:00: - [facility] 00 [facility] allergy allergy 2022-0 No .05mL [facility] extract extract 05-12 [facility] 00:00: - [facility] 00 [facility] allergy allergy 2022-0 No .05mL [facility] extract extract 05-12 [facility] 00:00: - [facility] 00 [facility] allergy allergy 2022-0 No .05mL [facility] extract extract 05-12 [facility] 00:00: - [facility] 00 [facility] allergy allergy 2022-0 No .05mL [facility] extract extract 05-12 [facility] 00:00: - [facility] 00 [facility] allergy allergy 2-0 No .05mL [facility] extract extract 05-12 [facility] 00:00: - [facility] 00 [facility] allergy allergy 2-0 No .05mL Common extract extract 05-12 [facility] 00:00: - [facility] 00 [facility] allergy allergy 2-0 No .05mL [facility] extract extract 05-12 [facility] 00:00: - [facility] 00 [facility] allergy allergy 2022-0 No .05mL [facility] extract extract 05-12 [facility] 00:00: - [facility] 00 [facility] allergy allergy 2-0 No .05mL [facility] extract extract 05-12 [facility] 00:00: - [facility] 00 [facility] allergy allergy 2022-0 No .05mL [facility] extract extract 05-12 [facility] 00:00: - [facility] 00 [facility] allergy allergy 2022-0 No .05mL [facility] extract extract 05-12 [facility] 00:00: - [facility] 00 [facility] allergy allergy 2022-0 No .05mL [facility] extract extract 05-12 [facility] 00:00: - [facility] 00 [facility] allergy allergy 2022-0 No .05mL [facility] extract extract 05-12 [facility] 00:00: - [facility] 00 [facility] allergy allergy 2022-0 No .05mL [facility] extract extract 05-12 [facility] 00:00: - [facility] 00 [facility] allergy allergy 2022-0 No .05mL [facility] extract extract 05-12 [facility] 00:00: - [facility] 00 [facility] allergy allergy 2022-0 No .05mL [facility] extract extract 05-12 [facility] 00:00: - [facility] 00 [facility] allergy allergy 2022-0 No .05mL [facility] extract extract 05-12 [facility] 00:00: - [facility] 00 [facility] allergy allergy 2022-0 No .05mL [facility] extract extract 05-12 [facility] 00:00: - [facility] 00 [facility] allergy allergy 2022-0 No .05mL Common extract extract 05-12 [facility] 00:00: - [facility] 00 [facility] allergy allergy 2022-0 No .05mL [facility] extract extract 05-12 [facility] 00:00: - [facility] 00 [facility] allergy allergy 2022-0 No .05mL [facility] extract extract 05-12 [facility] 00:00: - [facility] 00 [facility] allergy allergy 2022-0 No .05mL [facility] extract extract 05-12 [facility] 00:00: - [facility] 00 [facility] allergy allergy 2022-0 No .05mL [facility] extract extract 05-12 [facility] 00:00: - [facility] 00 [facility] allergy allergy 2022-0 No .05mL [facility] extract extract 05-12 [facility] 00:00: - [facility] 00 [facility] allergy allergy 2022-0 No .05mL [facility] extract extract 05-12 [facility] 00:00: - [facility] 00 [facility] allergy allergy 2022-0 No .05mL [facility] extract extract 05-12 [facility] 00:00: - [facility] 00 [facility] allergy allergy 2022-0 No .05mL [facility] extract extract 05-12 [facility] 00:00: - [facility] 00 [facility] allergy allergy 2022-0 No .05mL [facility] extract extract 05-12 [facility] 00:00: - [facility] 00 [facility] allergy allergy 2022-0 No .05mL [facility] extract extract 05-12 [facility] 00:00: - [facility] 00 [facility] allergy allergy 2022-0 No .05mL [facility] extract extract 05-12 [facility] 00:00: - [facility] 00 [facility] allergy allergy 2022-0 No .05mL [facility] extract extract 05-12 [facility] 00:00: - [facility] 00 [facility] allergy allergy 2022-0 No .05mL [facility] extract extract 05-12 [facility] 00:00: - [facility] 00 [facility] allergy allergy 2022-0 No .05mL [facility] extract extract 05-12 [facility] 00:00: - [facility] 00 [facility] allergy allergy 2022-0 No .05mL [facility] extract extract 05-12 [facility] 00:00: - [facility] 00 [facility] allergy allergy 2-0 No .5mL Common extract extract 8 [facility] 00:00: - [facility] 00 [facility] allergy allergy 2-0 No .5mL [facility] extract extract 8 [facility] 00:00: - [facility] 00 [facility] allergy allergy 2-0 No .5mL [facility] extract extract 8 [facility] 00:00: - [facility] 00 [facility] allergy allergy 2-0 No .5mL [facility] extract extract 8 [facility] 00:00: - [facility] 00 [facility] allergy allergy 2-0 No .5mL [facility] extract extract 8 [facility] 00:00: - [facility] allergy allergy 2-0 No .5mL [facility] extract extract 05-05 [facility] 00:00: - [facility] 00 [facility] allergy allergy 2-0 No .5mL [facility] extract extract 8 [facility] 00:00: - [facility] allergy allergy 2-0 No .5mL [facility] extract extract 8 [facility] 00:00: - [facility] 00 [facility] allergy allergy 2-0 No .5mL [facility] extract extract 8 [facility] 00:00: - [facility] 00 [facility] allergy allergy 2-0 No .5mL Common extract extract 8 [facility] 00:00: - [facility] allergy allergy 2-0 No .5mL Common extract extract 8 [facility] 00:00: - [facility] 00 [facility] allergy allergy 2-0 No .5mL [facility] extract extract 825 [facility] 00:00: - [facility] 00 [facility] allergy allergy 2-0 No .5mL Common extract extract 825 [facility] 00:00: - [facility] 00 [facility] allergy allergy 2-0 No .5mL [facility] extract extract 8 [facility] 00:00: - [facility] 00 [facility] allergy allergy 2-0 No .5mL [facility] extract extract 8 [facility] 00:00: - [facility] 00 [facility] allergy allergy 2-0 No .5mL [facility] extract extract 825 [facility] 00:00: - [facility] 00 [facility] allergy allergy 2-0 No .5mL [facility] extract extract 8-25 [facility] 00:00: - [facility] 00 [facility] allergy allergy 2-0 No .5mL Common extract extract 8-25 [facility] 00:00: - [facility] 00 [facility] allergy allergy 2-0 No .5mL Common extract extract 825 [facility] 00[facility]00: - [facility] 00 [facility] allergy allergy 2-0 No .5mL [facility] extract extract 825 [facility] 00:00: - [facility] 00 [facility] allergy allergy 2-0 No .5mL Common extract extract 825 [facility] 00:00: - [facility] 00 [facility] allergy allergy 2-0 No .5mL [facility] extract extract 825 [facility] 00:00: - [facility] 00 [facility] allergy allergy 2-0 No .5mL [facility] extract extract 825 [facility] 00:00: - [facility] allergy allergy 2-0 No .5mL Common extract extract 825 [facility] 00:00: - [facility] allergy allergy 2-0 No .5mL Common extract extract 825 [facility] 00:00: - [facility] allergy allergy 2-0 No .5mL Common extract extract [facility] 00:00: - [facility] allergy allergy 2-0 No .5mL Common extract extract [facility] 00:00: - [facility] allergy allergy 2-0 No .5mL Common extract extract [facility] 00:00: - [facility] allergy allergy 2-0 No .5mL Common extract extract [facility] 00:00: - [facility] 00 [facility] allergy allergy 2-0 No .5mL Common extract extract [facility] 00:00: - [facility] 00 [facility] allergy allergy 2-0 No .5mL Common extract extract [facility] 00:00: - [facility] 00 [facility] allergy allergy 2-0 No .5mL Common extract extract [facility] 00:00: - [facility] 00 [facility] allergy allergy 2-0 No .5mL Common extract extract [facility] 00:00: - [facility] 00 [facility] allergy allergy 2-0 No .5mL Common extract extract 8-25 [facility] 00:00: - [facility] 00 [facility] allergy allergy 2-0 No .5mL Common extract extract 8-[facility] 00:00: - [facility] 00 [facility] allergy allergy 2-0 No .5mL Common extract extract 8-[facility] 00:00: - [facility] 00 [facility] allergy allergy 2-0 No .5mL Common extract extract 8-[facility] 00:00: - [facility] 00 [facility] allergy allergy 2-0 No .5mL Common extract extract 8[facility] 00:00: - [facility] 00 [facility] allergy allergy 2-0 No .5mL Common extract extract 8-[facility] 00:00: - [facility] 00 [facility] allergy allergy 2-0 No .5mL Common extract extract 8[facility] 00:00: - [facility] 00 [facility] allergy allergy 2-0 No .5mL Common extract extract 8[facility] 00:00: - [facility] allergy allergy 2-0 No .5mL Common extract extract 8[facility] 00:00: - [facility] allergy allergy 2-0 No .5mL Common extract extract 8[facility] 00:00: - [facility] allergy allergy 2-0 No .5mL Common extract extract 8[facility] 00:00: - [facility] 00 [facility] allergy allergy 2-0 No .5mL Common extract extract [facility] 00:00: - [facility] allergy allergy 2-0 No .5mL Common extract extract 8[facility] 00:00: - [facility] 00 [facility] allergy allergy 2-0 No .5mL Common extract extract [facility] 00:00: - [facility] 00 [facility] allergy allergy 2-0 No .5mL Common extract extract 8[facility] 00:00: - [facility] 00 [facility] allergy allergy 2-0 No .5mL Common extract extract [facility] 00:00: - [facility] 00 [facility] allergy allergy 2-0 No .5mL Common extract extract 8[facility] 00:00: - [facility] 00 [facility] allergy allergy 2-0 No .5mL Common extract extract 8[facility] 00:00: - [facility] 00 [facility] allergy allergy 2-0 No .5mL Common extract extract [facility] 00:00: - [facility] 00 [facility] allergy allergy 2-0 No .5mL Common extract extract [facility] 00:00: - [facility] 00 [facility] allergy allergy 2-0 No .5mL Common extract extract 8[facility] 00:00: - [facility] 00 [facility] allergy allergy 2-0 No .5mL Common extract extract 8[facility] 00:00: - [facility] 00 [facility] allergy allergy 2-0 No .5mL Common extract extract [facility] 00:00: - [facility] 00 [facility] allergy allergy 2-0 No .5mL Common extract extract [facility] 00:00: - [facility] 00 [facility] allergy allergy 2-0 No .5mL Common extract extract [facility] 00:00: - [facility] allergy allergy 2-0 No .5mL Common extract extract [facility] 00:00: - [facility] allergy allergy 2-0 No .5mL Common extract extract [facility] 00:00: - [facility] allergy allergy 2-0 No .5mL Common extract extract [facility] 00:00: - [facility] allergy allergy 2-0 No .5mL Common extract extract [facility] 00:00: - [facility] 00 [facility] allergy allergy 2-0 No .5mL Common extract extract 8[facility] 00:00: - [facility] allergy allergy 2-0 No .5mL Common extract extract [facility] 00:00: - [facility] 00 [facility] allergy allergy 2-0 No .45mL Common extract extract 8[facility]18 [facility] 00:00: - [facility] 00 [facility] allergy allergy 2-0 No .45mL Common extract extract 8[facility]18 [facility] 00:00: - [facility] 00 [facility] allergy allergy 2-0 No .45mL Common extract extract 8[facility] 00:00: - [facility] 00 [facility] allergy allergy 2-0 No .45mL Common extract extract 8[facility] 00:00: - [facility] 00 [facility] allergy allergy 2-0 No .45mL Common extract extract 8[facility]18 [facility] 00:00: - [facility] 00 [facility] allergy allergy 2-0 No .45mL Common extract extract [facility] 00:00: - [facility] 00 [facility] allergy allergy 2-0 No .45mL Common extract extract [facility] 00:00: - [facility] 00 [facility] allergy allergy 2-0 No .45mL Common extract extract [facility] 00:00: - [facility] 00 [facility] allergy allergy 2-0 No .45mL Common extract extract [facility] 00:00: - [facility] 00 [facility] allergy allergy 2-0 No .45mL Common extract extract [facility] 00:00: - [facility] 00 [facility] allergy allergy 2-0 No .45mL Common extract extract [facility] 00:00: - [facility] 00 [facility] allergy allergy 2-0 No .45mL Common extract extract [facility] 00:00: - [facility] 00 [facility] allergy allergy 2-0 No .45mL Common extract extract [facility] 00:00: - [facility] 00 [facility] allergy allergy 2-0 No .45mL Common extract extract [facility] 00:00: - [facility] 00 [facility] allergy allergy 2-0 No .45mL Common extract extract [facility] 00:00: - [facility] 00 [facility] allergy allergy 2-0 No .45mL Common extract extract [facility] 00:00: - [facility] 00 [facility] allergy allergy 2-0 No .45mL Common extract extract [facility] 00:00: - [facility] 00 [facility] allergy allergy 2-0 No .45mL Common extract extract [facility] 00:00: - [facility] 00 [facility] allergy allergy 2-0 No .45mL Common extract extract [facility] 00:00: - [facility] 00 [facility] allergy allergy 2-0 No .45mL Common extract extract [facility] [facility] 00:00: - [facility] 00 [facility] allergy allergy 2-0 No .45mL Common extract extract [facility] 00:00: - [facility] 00 [facility] allergy allergy 2-0 No .45mL Common extract extract [facility] 00:00: - [facility] 00 [facility] allergy allergy 2-0 No .45mL Common extract extract [facility] 00:00: - [facility] 00 [facility] allergy allergy 2-0 No .45mL Common extract extract [facility] [facility] 00:00: - [facility] 00 [facility] allergy allergy 2-0 No .45mL Common extract extract [facility] 00:00: - [facility] 00 [facility] allergy allergy 2-0 No .45mL Common extract extract [facility] [facility] 00:00: - [facility] 00 [facility] allergy allergy 2-0 No .45mL Common extract extract [facility] [facility] 00:00: - [facility] 00 [facility] allergy allergy 2-0 No .45mL Common extract extract [facility] 00:00: - [facility] allergy allergy 2-0 No .45mL Common extract extract [facility] 00:00: - [facility] allergy allergy 2-0 No .45mL Common extract extract [facility] [facility] 00:00: - [facility] allergy allergy 2-0 No .45mL Common extract extract [facility] [facility] 00:00: - [facility] allergy allergy 2-0 No .45mL Common extract extract [facility] [facility] 00:00: - [facility] allergy allergy 2-0 No .45mL Common extract extract [facility] [facility] 00:00: - [facility] allergy allergy 2-0 No .4mL Common extract extract [facility] 00:00: - [facility] 00 [facility] allergy allergy 2-0 No .4mL Common extract extract [facility]- [facility] 00:00: - [facility] 00 [facility] allergy allergy 2-0 No .4mL Common extract extract [facility] 00:00: - [facility] 00 [facility] allergy allergy 2-0 No .4mL Common extract extract [facility] 00:00: - [facility] 00 [facility] allergy allergy 2-0 No .4mL Common extract extract 8[facility] 00:00: - [facility] 00 [facility] allergy allergy 2-0 No .4mL Common extract extract [facility] 00:00: - [facility] 00 [facility] allergy allergy 2-0 No .4mL Common extract extract [facility] 00:00: - [facility] 00 [facility] allergy allergy 2-0 No .4mL Common extract extract [facility] 00:00: - [facility] 00 [facility] allergy allergy 2-0 No .4mL Common extract extract [facility] 00:00: - [facility] 00 [facility] allergy allergy 2021-0 No .4mL Common extract extract [facility] 00:00: - [facility] 00 [facility] allergy allergy 2021-0 No .4mL Common extract extract 8[facility] 00:00: - [facility] allergy allergy 2021-0 No .4mL Common extract extract [facility] 00:00: - [facility] allergy allergy 2021-0 No .4mL Common extract extract [facility] 00:00: - [facility] allergy allergy 2021-0 No .4mL Common extract extract [facility] 00:00: - [facility] allergy allergy 2021-0 No .4mL Common extract extract [facility] 00:00: - [facility] allergy allergy 2021-0 No .4mL Common extract extract [facility] 00:00: - [facility] 00 [facility] allergy allergy 2-0 No .4mL Common extract extract [facility] 00:00: - [facility] allergy allergy 2-0 No .4mL Common extract extract [facility] 00:00: - [facility] 00 [facility] allergy allergy 2-0 No .4mL Common extract extract [facility] 00:00: - [facility] 00 [facility] allergy allergy 2-0 No .4mL Common extract extract [facility] 00:00: - [facility] 00 [facility] allergy allergy 2-0 No .4mL Common extract extract 8[facility] 00:00: - [facility] 00 [facility] allergy allergy 2-0 No .4mL Common extract extract [facility] 00:00: - [facility] 00 [facility] allergy allergy 2-0 No .4mL Common extract extract [facility] 00:00: - [facility] allergy allergy 2-0 No .4mL Common extract extract [facility] 00:00: - [facility] 00 [facility] allergy allergy 2-0 No .4mL Common extract extract [facility] 00:00: - [facility] 00 [facility] allergy allergy 2-0 No .4mL Common extract extract [facility] 00:00: - [facility] 00 [facility] allergy allergy 2-0 No .4mL Common extract extract [facility] 00:00: - [facility] 00 [facility] allergy allergy 2021-0 No .4mL Common extract extract [facility] 00:00: - [facility] 00 [facility] allergy allergy 2021-0 No .4mL Common extract extract [facility] 00:00: - [facility] allergy allergy 2021-0 No .4mL Common extract extract [facility] 00:00: - [facility] allergy allergy 2-0 No .4mL Common extract extract [facility] 00:00: - [facility] allergy allergy 2021-0 No .4mL Common extract extract [facility] 00:00: - [facility] allergy allergy 2-0 No .4mL Common extract extract [facility] 00:00: - [facility] allergy allergy 2-0 No .4mL Common extract extract [facility] 00:00: - [facility] 00 [facility] allergy allergy 2-0 No .4mL Common extract extract 8[facility] 00:00: - [facility] allergy allergy 2-0 No .4mL Common extract extract [facility] 00:00: - [facility] 00 [facility] allergy allergy 2-0 No .4mL Common extract extract [facility] 00:00: - [facility] 00 [facility] allergy allergy 2-0 No .4mL Common extract extract [facility] 00:00: - [facility] 00 [facility] allergy allergy 2-0 No .4mL Common extract extract 8[facility] 00:00: - [facility] 00 [facility] allergy allergy 2-0 No .4mL Common extract extract 8[facility] 00:00: - [facility] 00 [facility] allergy allergy 2-0 No .4mL Common extract extract [facility] 00:00: - [facility] 00 [facility] allergy allergy 2-0 No .4mL Common extract extract [facility] 00:00: - [facility] 00 [facility] allergy allergy 2-0 No .4mL Common extract extract 8[facility] 00:00: - [facility] 00 [facility] allergy allergy 2-0 No .4mL Common extract extract 8[facility] 00:00: - [facility] 00 [facility] allergy allergy 2-0 No .4mL Common extract extract 8[facility] 00:00: - [facility] 00 [facility] allergy allergy 2-0 No .4mL Common extract extract [facility] 00:00: - [facility] 00 [facility] allergy allergy 2-0 No .4mL Common extract extract 8[facility] 00:00: - [facility] 00 [facility] allergy allergy 2-0 No .4mL Common extract extract 8[facility] 00:00: - [facility] 00 [facility] allergy allergy 2-0 No .4mL Common extract extract 8[facility] 00:00: - [facility] 00 [facility] allergy allergy 2-0 No .4mL Common extract extract [facility] 00:00: - [facility] 00 [facility] allergy allergy 2-0 No .4mL Common extract extract [facility] 00:00: - [facility] 00 [facility] allergy allergy 2-0 No .4mL Common extract extract [facility] 00:00: - [facility] 00 [facility] allergy allergy 2-0 No .4mL Common extract extract [facility] 00:00: - [facility] 00 [facility] allergy allergy 2-0 No .4mL Common extract extract [facility] 00:00: - [facility] 00 [facility] allergy allergy 2-0 No .4mL Common extract extract [facility] 00:00: - [facility] 00 [facility] allergy allergy 2-0 No .4mL Common extract extract [facility] 00:00: - [facility] 00 [facility] allergy allergy 2-0 No .4mL Common extract extract [facility] 00:00: - [facility] 00 [facility] allergy allergy 2-0 No .4mL Common extract extract [facility] 00:00: - [facility] 00 [facility] allergy allergy 2-0 No .4mL Common extract extract [facility]- [facility] 00:00: - [facility] 00 [facility] allergy allergy 2-0 No .4mL Common extract extract [facility] 00:00: - [facility] 00 [facility] allergy allergy 2-0 No .4mL Common extract extract [facility] 00:00: - [facility] 00 [facility] allergy allergy 2-0 No .4mL Common extract extract [facility] 00:00: - [facility] 00 [facility] allergy allergy 2-0 No .4mL Common extract extract [facility] 00:00: - [facility] 00 [facility] allergy allergy 2-0 No .4mL Common extract extract [facility] 00:00: - [facility] allergy allergy 2-0 No .4mL Common extract extract [facility] 00:00: - [facility] allergy allergy 2-0 No .4mL Common extract extract [facility] 00:00: - [facility] allergy allergy 2-0 No .4mL Common extract extract [facility] 00:00: - [facility] 00 [facility] allergy allergy 2-0 No .4mL Common extract extract [facility] 00:00: - [facility] allergy allergy 2-0 No .4mL Common extract extract [facility] 00:00: - [facility] allergy allergy 2-0 No .4mL Common extract extract [facility] 00:00: - [facility] 00 [facility] allergy allergy 2-0 No .35mL Common extract extract [facility] 00:00: - [facility] 00 [facility] allergy allergy 2-0 No .35mL Common extract extract [facility] 00:00: - [facility] 00 [facility] allergy allergy 2-0 No .35mL Common extract extract [facility] 00:00: - [facility] 00 [facility] allergy allergy 2-0 No .35mL Common extract extract [facility] 00:00: - [facility] 00 [facility] allergy allergy 2-0 No .35mL Common extract extract [facility] 00:00: - [facility] 00 [facility] allergy allergy 2-0 No .35mL Common extract extract 04-14 [facility] 00:00: - [facility] 00 [facility] allergy allergy 2-0 No .35mL Common extract extract 04-14 [facility] 00:00: - [facility] 00 [facility] allergy allergy 2-0 No .35mL Common extract extract 04-[facility] 00:00: - [facility] 00 [facility] allergy allergy 2-0 No .35mL Common extract extract 04-[facility] 00:00: - [facility] 00 [facility] allergy allergy 2-0 No .35mL Common extract extract 04-[facility] 00:00: - [facility] 00 [facility] allergy allergy 2-0 No .35mL Common extract extract 04-[facility] 00:00: - [facility] 00 [facility] allergy allergy 2-0 No .35mL Common extract extract 04-[facility] 00:00: - [facility] 00 [facility] allergy allergy 2-0 No .35mL Common extract extract 04-[facility] 00:00: - [facility] 00 [facility] allergy allergy 2-0 No .35mL Common extract extract 04-14 [facility] 00:00: - [facility] 00 [facility] allergy allergy 2-0 No .35mL Common extract extract 04-[facility] 00:00: - [facility] 00 [facility] allergy allergy 2-0 No .35mL Common extract extract 04-[facility] 00:00: - [facility] 00 [facility] allergy allergy 2-0 No .35mL Common extract extract 04-[facility] 00:00: - [facility] 00 [facility] allergy allergy 2-0 No .35mL Common extract extract 04-14 [facility] 00:00: - [facility] 00 [facility] allergy allergy 2-0 No .35mL Common extract extract 04-14 [facility] 00:00: - [facility] 00 [facility] allergy allergy 2-0 No .35mL Common extract extract 04-14 [facility] 00:00: - [facility] 00 [facility] allergy allergy 2-0 No .35mL Common extract extract 04-14 [facility] 00:00: - [facility] 00 [facility] allergy allergy 2-0 No .35mL Common extract extract 04-14 [facility] 00:00: - [facility] 00 [facility] allergy allergy 2-0 No .35mL Common extract extract 04-14 [facility] 00:00: - [facility] 00 [facility] allergy allergy 2-0 No .35mL Common extract extract 04-14 [facility] 00:00: - [facility] 00 [facility] allergy allergy 2-0 No .35mL Common extract extract 04-14 [facility] 00:00: - [facility] 00 [facility] allergy allergy 2-0 No .35mL Common extract extract 04-14 [facility] 00:00: - [facility] 00 [facility] allergy allergy 2-0 No .35mL Common extract extract 04-14 [facility] 00:00: - [facility] 00 [facility] allergy allergy 2-0 No .35mL Common extract extract 04-14 [facility] 00:00: - [facility] 00 [facility] allergy allergy 2-0 No .35mL Common extract extract 04-14 [facility] 00:00: - [facility] 00 [facility] allergy allergy 2-0 No .35mL Common extract extract 04-14 [facility] 00:00: - [facility] 00 [facility] allergy allergy 2-0 No .35mL Common extract extract 04-14 [facility] 00:00: - [facility] 00 [facility] allergy allergy 2-0 No .35mL Common extract extract 04-14 [facility] 00:00: - [facility] 00 [facility] allergy allergy 2-0 No .35mL Common extract extract 04-14 [facility] 00:00: - [facility] 00 [facility] allergy allergy 2-0 No .35mL Common extract extract 04-14 [facility] 00:00: - [facility] 00 [facility] allergy allergy 2-0 No .35mL Common extract extract 04-14 [facility] 00:00: - [facility] 00 [facility] allergy allergy 2-0 No .35mL Common extract extract 04-14 [facility] 00:00: - [facility] 00 [facility] allergy allergy 2-0 No .35mL Common extract extract 04-14 [facility] 00:00: - [facility] 00 [facility] allergy allergy 2-0 No .35mL Common extract extract 04-14 [facility] 00:00: - [facility] 00 [facility] allergy allergy 2-0 No .35mL Common extract extract 04-14 [facility] 00:00: - [facility] 00 [facility] allergy allergy 2-0 No .35mL Common extract extract 8-04 [facility] 00:00: - [facility] 00 [facility] allergy allergy 2-0 No .35mL Common extract extract 04-14 [facility] 00:00: - [facility] 00 [facility] allergy allergy 2-0 No .35mL Common extract extract 04-14 [facility] 00:00: - [facility] 00 [facility] allergy allergy 2-0 No .35mL Common extract extract 04-14 [facility] 00:00: - [facility] 00 [facility] allergy allergy 2-0 No .35mL Common extract extract 04-[facility] 00:00: - [facility] 00 [facility] allergy allergy 2-0 No .35mL Common extract extract 04-14 [facility] 00:00: - [facility] 00 [facility] allergy allergy 2-0 No .35mL Common extract extract 04-[facility] 00:00: - [facility] 00 [facility] allergy allergy 2-0 No .35mL Common extract extract 04-14 [facility] 00:00: - [facility] 00 [facility] allergy allergy 2-0 No .35mL Common extract extract 04-[facility] 00:00: - [facility] 00 [facility] allergy allergy 2-0 No .35mL Common extract extract 04-14 [facility] 00:00: - [facility] 00 [facility] allergy allergy 2-0 No .35mL Common extract extract 04-[facility] 00:00: - [facility] 00 [facility] allergy allergy 2-0 No .35mL Common extract extract 04-[facility] 00:00: - [facility] 00 [facility] allergy allergy 2-0 No .35mL Common extract extract 04-[facility] 00:00: - [facility] 00 [facility] allergy allergy 2022-0 No .35mL Common extract extract 04-[facility] 00:00: - [facility] 00 [facility] allergy allergy 2-0 No .35mL Common extract extract 04-[facility] 00:00: - [facility] 00 [facility] allergy allergy 2022-0 No .35mL Common extract extract 04-[facility] 00:00: - [facility] 00 [facility] allergy allergy 2022-0 No .35mL Common extract extract 04-[facility] 00:00: - [facility] 00 [facility] allergy allergy 2-0 No .35mL Common extract extract 04-[facility] 00:00: - [facility] 00 [facility] allergy allergy 2022-0 No .35mL Common extract extract 04-[facility] 00:00: - [facility] 00 [facility] allergy allergy 2-0 No .35mL Common extract extract 04-14 [facility] 00:00: - [facility] 00 [facility] allergy allergy 2-0 No .35mL Common extract extract 04-14 [facility] 00:00: - [facility] 00 [facility] allergy allergy 2-0 No .35mL Common extract extract 04-14 [facility] 00:00: - [facility] 00 [facility] allergy allergy 2-0 No .35mL Common extract extract 04-[facility] 00:00: - [facility] 00 [facility] allergy allergy 2-0 No .35mL Common extract extract 04-14 [facility] 00:00: - [facility] 00 [facility] allergy allergy 2-0 No .35mL Common extract extract 04-[facility] 00:00: - [facility] 00 [facility] allergy allergy 2-0 No .35mL Common extract extract 04-[facility] 00:00: - [facility] 00 [facility] allergy allergy 2-0 No .35mL Common extract extract 04-[facility] 00:00: - [facility] 00 [facility] allergy allergy 2-0 No .35mL Common extract extract 04-[facility] 00:00: - [facility] 00 [facility] allergy allergy 2-0 No .35mL Common extract extract 04-[facility] 00:00: - [facility] 00 [facility] allergy allergy 2-0 No .35mL Common extract extract 04-[facility] 00:00: - [facility] 00 [facility] allergy allergy 2022-0 No .35mL Common extract extract 04-[facility] 00:00: - [facility] 00 [facility] allergy allergy 2-0 No .35mL Common extract extract 04-[facility] 00:00: - [facility] 00 [facility] allergy allergy 2-0 No .35mL Common extract extract 04-[facility] 00:00: - [facility] 00 [facility] allergy allergy 2022-0 No .3mL Common extract extract 04-07 [facility] 00:00: - [facility] 00 [facility] allergy allergy 2022-0 No .3mL Common extract extract 04-07 [facility] 00:00: - [facility] 00 [facility] allergy allergy 2022-0 No .3mL Common extract extract 04-07 [facility] 00:00: - [facility] 00 [facility] allergy allergy 2022-0 No .3mL Common extract extract 04-07 [facility] 00:00: - [facility] 00 [facility] allergy allergy 2022-0 No .3mL Common extract extract 04-07 [facility] 00:00: - [facility] 00 [facility] allergy allergy 2022-0 No .3mL Common extract extract 04-07 [facility] 00:00: - [facility] 00 [facility] allergy allergy 2022-0 No .3mL Common extract extract 04-[facility] 00:00: - [facility] 00 [facility] allergy allergy 2-0 No .3mL Common extract extract 04-07 [facility] 00:00: - [facility] 00 [facility] allergy allergy 2-0 No .3mL Common extract extract 04-07 [facility] 00:00: - [facility] 00 [facility] allergy allergy 2022-0 No .3mL Common extract extract 04-07 [facility] 00:00: - [facility] 00 [facility] allergy allergy 2022-0 No .3mL Common extract extract [facility] 00[facility]: - [facility] 00 [facility] allergy allergy 2022-0 No .3mL Common extract extract 04-07 [facility] 00:00: - [facility] 00 [facility] allergy allergy 2-0 No .3mL Common extract extract 04-07 [facility] 00:00: - [facility] 00 [facility] allergy allergy 2022-0 No .3mL Common extract extract 04-07 [facility] 00:00: - [facility] 00 [facility] allergy allergy 2022-0 No .3mL Common extract extract 04-07 [facility] 00:00: - [facility] 00 [facility] allergy allergy 2022-0 No .3mL Common extract extract 04-07 [facility] 00:00: - [facility] 00 [facility] allergy allergy 2022-0 No .3mL Common extract extract 04-07 [facility] 00:00: - [facility] 00 [facility] allergy allergy 2022-0 No .3mL Common extract extract 04-07 [facility] 00:00: - [facility] 00 [facility] allergy allergy 2022-0 No .3mL Common extract extract 04-07 [facility] 00:00: - [facility] 00 [facility] allergy allergy 2022-0 No .3mL Common extract extract 04-07 [facility] 00:00: - [facility] 00 [facility] allergy allergy 2022-0 No .3mL Common extract extract 04-07 [facility] 00:00: - [facility] 00 [facility] allergy allergy 2-0 No .3mL Common extract extract 04-07 [facility] 00:00: - [facility] 00 [facility] allergy allergy 2022-0 No .3mL Common extract extract 04-07 [facility] 00:00: - [facility] 00 [facility] allergy allergy 2-0 No .3mL Common extract extract 04-07 [facility] 00:00: - [facility] 00 [facility] allergy allergy 2-0 No .3mL Common extract extract 04-07 [facility] 00:00: - [facility] 00 [facility] allergy allergy 2-0 No .3mL Common extract extract 04-07 [facility] 00:00: - [facility] 00 [facility] allergy allergy 2-0 No .3mL Common extract extract 04-07 [facility] 00:00: - [facility] 00 [facility] allergy allergy 2-0 No .3mL Common extract extract 04-07 [facility] 00:00: - [facility] 00 [facility] allergy allergy 2-0 No .3mL Common extract extract 04-07 [facility] 00:00: - [facility] 00 [facility] allergy allergy 2-0 No .3mL Common extract extract 04-07 [facility] 00:00: - [facility] 00 [facility] allergy allergy 2-0 No .3mL Common extract extract 04-07 [facility] 00:00: - [facility] 00 [facility] allergy allergy 2022-0 No .3mL Common extract extract 04-07 [facility] 00:00: - [facility] 00 [facility] allergy allergy 2022-0 No .3mL [facility] extract extract 04-07 [facility] 00:00: - [facility] 00 [facility] allergy allergy 2022-0 No .3mL [facility] extract extract 04-07 [facility] 00:00: - [facility] 00 [facility] allergy allergy 2022-0 No .3mL [facility] extract extract 04-07 [facility] 00:00: - [facility] 00 [facility] allergy allergy 2022-0 No .3mL [facility] extract extract 04-07 [facility] 00:00: - [facility] 00 [facility] allergy allergy 2022-0 No .3mL [facility] extract extract 04-07 [facility] 00:00: - [facility] 00 [facility] allergy allergy 2022-0 No .3mL Common extract extract 04-07 [facility] 00:00: - [facility] 00 [facility] allergy allergy 2022-0 No .3mL Common extract extract 04-07 [facility] 00:00: - [facility] 00 [facility] allergy allergy 2022-0 No .3mL Common extract extract 04-07 [facility] 00:00: - [facility] 00 [facility] allergy allergy 2022-0 No .3mL [facility] extract extract 04-07 [facility] 00:00: - [facility] 00 [facility] allergy allergy 2-0 No .3mL Common extract extract 04-07 [facility] 00:00: - [facility] 00 [facility] allergy allergy 2-0 No .3mL [facility] extract extract 04-07 [facility] 00:00: - [facility] 00 [facility] allergy allergy 2-0 No .3mL [facility] extract extract 04-07 [facility] 00:00: - [facility] 00 [facility] allergy allergy 2-0 No .3mL [facility] extract extract 04-07 [facility] 00:00: - [facility] 00 [facility] allergy allergy 2-0 No .3mL [facility] extract extract 04-07 [facility] 00:00: - [facility] 00 [facility] allergy allergy 2-0 No .3mL Common extract extract 04-07 [facility] 00:00: - [facility] 00 [facility] allergy allergy 2022-0 No .3mL Common extract extract 04-07 [facility] 00:00: - [facility] 00 [facility] allergy allergy 2022-0 No .3mL Common extract extract 04-07 [facility] 00:00: - [facility] 00 [facility] allergy allergy 2022-0 No .3mL [facility] extract extract 04-07 [facility] 00:00: - [facility] 00 [facility] allergy allergy 2022-0 No .3mL [facility] extract extract 04-07 [facility] 00:00: - [facility] 00 [facility] allergy allergy 2022-0 No .3mL Common extract extract 04-07 [facility] 00:00: - [facility] 00 [facility] allergy allergy 2022-0 No .3mL [facility] extract extract 04-[facility] 00:00: - [facility] 00 [facility] allergy allergy 2022-0 No .3mL [facility] extract extract 04-07 [facility] 00:00: - [facility] 00 [facility] allergy allergy 2022-0 No .3mL [facility] extract extract 04-[facility] 00:00: - [facility] 00 [facility] allergy allergy 2022-0 No .3mL [facility] extract extract 04-[facility] 00:00: - [facility] 00 [facility] allergy allergy 2022-0 No .3mL [facility] extract extract 04-[facility] 00:00: - [facility] 00 [facility] allergy allergy 2022-0 No .3mL [facility] extract extract 04-[facility] 00:00: - [facility] 00 [facility] allergy allergy 2022-0 No .3mL Common extract extract 04-[facility] 00:00: - [facility] 00 [facility] allergy allergy 2022-0 No .3mL [facility] extract extract 04[facility] 00:00: - [facility] 00 [facility] allergy allergy 2022-0 No .3mL Common extract extract 04-07 [facility] 00:00: - [facility] 00 [facility] allergy allergy 2-0 No .3mL [facility] extract extract 04-[facility] 00:00: - [facility] 00 [facility] allergy allergy 2022-0 No .3mL [facility] extract extract 04-[facility] 00:00: - [facility] 00 [facility] allergy allergy 2022-0 No .3mL [facility] extract extract 04-[facility] 00:00: - [facility] 00 [facility] allergy allergy 2022-0 No .3mL [facility] extract extract [facility] 00:00: - [facility] 00 [facility] allergy allergy 2022-0 No .3mL [facility] extract extract [facility] 00:00: - [facility] 00 [facility] allergy allergy 2022-0 No .3mL [facility] extract extract [facility] 00:00: - [facility] 00 [facility] allergy allergy 2022-0 No .3mL [facility] extract extract [facility] 00:00: - [facility] 00 [facility] allergy allergy 2022-0 No .3mL [facility] extract extract [facility] 00:00: - [facility] 00 [facility] allergy allergy 2022-0 No .3mL [facility] extract extract [facility] 00:00: - [facility] 00 [facility] allergy allergy 2022-0 No .3mL [facility] extract extract [facility] 00:00: - [facility] 00 [facility] allergy allergy 2022-0 No .3mL [facility] extract extract [facility] 00:00: - [facility] 00 [facility] allergy allergy 2-0 No .3mL [facility] extract extract 04[facility] 00:00: - [facility] 00 [facility] allergy allergy 2-0 No .3mL [facility] extract extract [facility] 00:00: - [facility] 00 [facility] allergy allergy 2-0 No .25mL Common extract extract 03-31 [facility] 00:00: - [facility] 00 [facility] allergy allergy 2-0 No .25mL [facility] extract extract 03-31 [facility] 00:00: - [facility] 00 [facility] allergy allergy 2-0 No .25mL [facility] extract extract 03-31 [facility] 00:00: - [facility] 00 [facility] allergy allergy 2-0 No .25mL [facility] extract extract 03-31 [facility] 00:00: - [facility] allergy allergy 2-0 No .25mL [facility] extract extract 03-31 [facility] 00:00: - [facility] allergy allergy 2-0 No .25mL [facility] extract extract 03-31 [facility] 00:00: - [facility] 00 [facility] allergy allergy 2-0 No .25mL [facility] extract extract 03-31 [facility] 00:00: - [facility] 00 [facility] allergy allergy 2-0 No .25mL [facility] extract extract 03-31 [facility] 00:00: - [facility] allergy allergy 2-0 No .25mL [facility] extract extract 03-31 [facility] 00:00: - [facility] 00 [facility] allergy allergy 2022-0 No .25mL [facility] extract extract 03-31 [facility] 00:00: - [facility] 00 [facility] allergy allergy 2022-0 No .25mL [facility] extract extract 03-31 [facility] 00:00: - [facility] 00 [facility] allergy allergy 2022-0 No .25mL [facility] extract extract 03-31 [facility] 00:00: - [facility] 00 [facility] allergy allergy 2022-0 No .25mL [facility] extract extract 03-31 [facility] 00:00: - [facility] 00 [facility] allergy allergy 2022-0 No .25mL [facility] extract extract 03-31 [facility] 00:00: - [facility] 00 [facility] allergy allergy 2022-0 No .25mL [facility] extract extract 03-31 [facility] 00:00: - [facility] 00 [facility] allergy allergy 2-0 No .25mL [facility] extract extract 03-[facility] 00:00: - [facility] 00 [facility] allergy allergy 2-0 No .25mL [facility] extract extract 03-[facility] 00:00: - [facility] 00 [facility] allergy allergy 2-0 No .25mL [facility] extract extract 03-31 [facility] 00:00: - [facility] 00 [facility] allergy allergy 2-0 No .25mL [facility] extract extract 03-31 [facility] 00:00: - [facility] 00 [facility] allergy allergy 2-0 No .25mL [facility] extract extract 03-31 [facility] 00:00: - [facility] 00 [facility] allergy allergy 2-0 No .25mL [facility] extract extract 03-31 [facility] 00:00: - [facility] 00 [facility] allergy allergy 2-0 No .25mL [facility] extract extract 03-31 [facility] 00:00: - [facility] 00 [facility] allergy allergy 2-0 No .25mL [facility] extract extract 03-31 [facility] 00:00: - [facility] 00 [facility] allergy allergy 2-0 No .25mL [facility] extract extract 03-31 [facility] 00:00: - [facility] 00 [facility] allergy allergy 2-0 No .25mL [facility] extract extract 03-31 [facility] 00:00: - [facility] 00 [facility] allergy allergy 2-0 No .25mL [facility] extract extract 03-31 [facility] 00:00: - [facility] 00 [facility] allergy allergy 2-0 No .25mL [facility] extract extract 03-31 [facility] 00:00: - [facility] 00 [facility] allergy allergy 2-0 No .25mL [facility] extract extract 03-31 [facility] 00:00: - [facility] 00 [facility] allergy allergy 2-0 No .25mL [facility] extract extract 03-31 [facility] 00:00: - [facility] 00 [facility] allergy allergy 2-0 No .25mL [facility] extract extract 03-31 [facility] 00:00: - [facility] 00 [facility] allergy allergy 2-0 No .25mL [facility] extract extract 03-31 [facility] 00:00: - [facility] 00 [facility] allergy allergy 2022-0 No .25mL [facility] extract extract 03-31 [facility] 00:00: - [facility] 00 [facility] allergy allergy 2-0 No .25mL [facility] extract extract 03-[facility] 00:00: - [facility] 00 [facility] allergy allergy 2-0 No .25mL [facility] extract extract 03-31 [facility] 00:00: - [facility] 00 [facility] allergy allergy 2-0 No .25mL [facility] extract extract 03-31 [facility] 00:00: - [facility] 00 [facility] allergy allergy 2-0 No .25mL [facility] extract extract 03-31 [facility] 00:00: - [facility] 00 [facility] allergy allergy 2-0 No .25mL [facility] extract extract 03-31 [facility] 00:00: - [facility] 00 [facility] allergy allergy 2-0 No .25mL Common extract extract 03-31 [facility] 00:00: - [facility] 00 [facility] allergy allergy 2-0 No .25mL [facility] extract extract 03-31 [facility] 00:00: - [facility] 00 [facility] allergy allergy 2-0 No .25mL [facility] extract extract 03-31 [facility] 00:00: - [facility] 00 [facility] allergy allergy 2-0 No .25mL [facility] extract extract 03-31 [facility] 00:00: - [facility] 00 [facility] allergy allergy 2-0 No .25mL Common extract extract 03-31 [facility] 00:00: - [facility] 00 [facility] allergy allergy 2-0 No .25mL [facility] extract extract 03-31 [facility] 00:00: - [facility] 00 [facility] allergy allergy 2-0 No .25mL [facility] extract extract 03-31 [facility] 00:00: - [facility] 00 [facility] allergy allergy 2022-0 No .25mL [facility] extract extract 03[facility] 00:00: - [facility] 00 [facility] allergy allergy 2022-0 No .25mL [facility] extract extract 03[facility] 00:00: - [facility] 00 [facility] allergy allergy 2022-0 No .25mL [facility] extract extract 03[facility] 00:00: - [facility] 00 [facility] allergy allergy 2022-0 No .25mL Common extract extract 03-31 [facility] 00:00: - [facility] 00 [facility] allergy allergy 2022-0 No .25mL [facility] extract extract 03[facility]31 [facility] 00:00: - [facility] 00 [facility] allergy allergy 2022-0 No .25mL Common extract extract 03-31 [facility] 00:00: - [facility] 00 [facility] allergy allergy 2-0 No .25mL [facility] extract extract 03[facility] 00:00: - [facility] 00 [facility] allergy allergy 2-0 No .25mL [facility] extract extract 03-31 [facility] 00:00: - [facility] 00 [facility] allergy allergy 2-0 No .25mL [facility] extract extract 03[facility] 00:00: - [facility] 00 [facility] allergy allergy 2-0 No .25mL [facility] extract extract 03[facility] 00:00: - [facility] 00 [facility] allergy allergy 2-0 No .25mL [facility] extract extract 03[facility]31 [facility] 00:00: - [facility] 00 [facility] allergy allergy 2-0 No .25mL [facility] extract extract 03[facility]31 [facility] 00:00: - [facility] 00 [facility] allergy allergy 2-0 No .25mL [facility] extract extract 03[facility] 00:00: - [facility] 00 [facility] allergy allergy 2-0 No .25mL [facility] extract extract 03[facility] 00:00: - [facility] 00 [facility] allergy allergy 2-0 No .25mL [facility] extract extract 03[facility] 00:00: - [facility] 00 [facility] allergy allergy 2-0 No .25mL [facility] extract extract 03[facility] 00:00: - [facility] 00 [facility] allergy allergy 2022-0 No .25mL [facility] extract extract 03[facility] 00:00: - [facility] 00 [facility] allergy allergy 2022-0 No .25mL [facility] extract extract 03[facility] 00:00: - [facility] 00 [facility] allergy allergy 2022-0 No .25mL [facility] extract extract 03[facility] 00:00: - [facility] 00 [facility] allergy allergy 2022-0 No .25mL [facility] extract extract 03[facility] 00:00: - [facility] 00 [facility] allergy allergy 2022-0 No .25mL [facility] extract extract 03[facility] 00:00: - [facility] 00 [facility] allergy allergy 2022-0 No .25mL [facility] extract extract 03[facility] 00:00: - [facility] 00 [facility] allergy allergy 2-0 No .25mL [facility] extract extract 03[facility] 00:00: - [facility] 00 [facility] allergy allergy 2-0 No .25mL [facility] extract extract 03[facility] 00:00: - [facility] 00 [facility] allergy allergy 2-0 No .25mL [facility] extract extract 03[facility] 00:00: - [facility] 00 [facility] allergy allergy 2-0 No .25mL [facility] extract extract 03[facility] 00:00: - [facility] 00 [facility] allergy allergy 2-0 No .25mL [facility] extract extract 03[facility] 00:00: - [facility] 00 [facility] allergy allergy 2-0 No .25mL [facility] extract extract 03[facility] 00:00: - [facility] 00 [facility] allergy allergy 2-0 No .25mL [facility] extract extract 03[facility] 00:00: - [facility] allergy allergy 2-0 No .25mL [facility] extract extract 03[facility] 00:00: - [facility] allergy allergy 2-0 No .25mL [facility] extract extract 03[facility] 00:00: - [facility] 00 [facility] allergy allergy 2-0 No .25mL [facility] extract extract 03[facility] 00:00: - [facility] 00 [facility] allergy allergy 2-0 No .2mL [facility] extract extract 03-24 [facility] 00:00: - [facility] 00 [facility] allergy allergy 2-0 No .2mL [facility] extract extract 14 [facility] 00:00: - [facility] 00 [facility] allergy allergy 2-0 No .2mL [facility] extract extract 03[facility]24 [facility] 00:00: - [facility] 00 [facility] allergy allergy 2-0 No .2mL [facility] extract extract 14 [facility] 00:00: - [facility] 00 [facility] allergy allergy 2-0 No .2mL [facility] extract extract 03[facility]24 [facility] 00:00: - [facility] 00 [facility] allergy allergy 2-0 No .2mL [facility] extract extract 03[facility]24 [facility] 00:00: - [facility] 00 [facility] allergy allergy 2-0 No .2mL [facility] extract extract 14 [facility] 00:00: - [facility] 00 [facility] allergy allergy 2-0 No .2mL [facility] extract extract -14 [facility] 00:00: - [facility] 00 [facility] allergy allergy 2-0 No .2mL [facility] extract extract -14 [facility] 00:00: - [facility] 00 [facility] allergy allergy 2-0 No .2mL [facility] extract extract -14 [facility] 00:00: - [facility] 00 [facility] allergy allergy 2-0 No .2mL [facility] extract extract -14 [facility] 00:00: - [facility] 00 [facility] allergy allergy 2-0 No .2mL [facility] extract extract -14 [facility] 00:00: - [facility] 00 [facility] allergy allergy 2-0 No .2mL [facility] extract extract 03[facility]24 [facility] 00:00: - [facility] 00 [facility] allergy allergy 2021-0 No .2mL [facility] extract extract 03[facility]24 [facility] 00:00: - [facility] 00 [facility] allergy allergy 2-0 No .2mL [facility] extract extract 03[facility]24 [facility] 00:00: - [facility] 00 [facility] allergy allergy 2-0 No .2mL [facility] extract extract 03[facility]24 [facility] 00:00: - [facility] 00 [facility] allergy allergy 2-0 No .2mL [facility] extract extract 03[facility]24 [facility] 00:00: - [facility] 00 [facility] allergy allergy 2-0 No .2mL [facility] extract extract 03[facility]24 [facility] 00:00: - [facility] 00 [facility] allergy allergy 2-0 No .2mL [facility] extract extract -14 [facility] 00:00: - [facility] 00 [facility] allergy allergy 2-0 No .2mL Common extract extract -14 [facility] 00:00: - [facility] 00 [facility] allergy allergy 2-0 No .2mL [facility] extract extract - [facility] 00:00: - [facility] 00 [facility] allergy allergy 2-0 No .2mL Common extract extract -14 [facility] 00:00: - [facility] 00 [facility] allergy allergy 2-0 No .2mL [facility] extract extract -14 [facility] 00:00: - [facility] 00 [facility] allergy allergy 2-0 No .2mL [facility] extract extract -14 [facility] 00:00: - [facility] 00 [facility] allergy allergy 2022-0 No .2mL [facility] extract extract 7-14 [facility] 00:00: - [facility] 00 [facility] allergy allergy 2-0 No .2mL [facility] extract extract -14 [facility] 00:00: - [facility] 00 [facility] allergy allergy 2-0 No .2mL [facility] extract extract -14 [facility] 00:00: - [facility] 00 [facility] allergy allergy 2-0 No .2mL [facility] extract extract -14 [facility] 00:00: - [facility] 00 [facility] allergy allergy 2-0 No .2mL [facility] extract extract - [facility] 00:00: - [facility] 00 [facility] allergy allergy 2-0 No .2mL [facility] extract extract - [facility] 00:00: - [facility] 00 [facility] allergy allergy 2-0 No .2mL [facility] extract extract 03-24 [facility] 00:00: - [facility] 00 [facility] allergy allergy 2-0 No .2mL [facility] extract extract 03[facility]24 [facility] 00:00: - [facility] 00 [facility] allergy allergy 2-0 No .2mL [facility] extract extract 03[facility]24 [facility] 00:00: - [facility] 00 [facility] allergy allergy 2-0 No .2mL [facility] extract extract 03[facility]24 [facility] 00:00: - [facility] 00 [facility] allergy allergy 2-0 No .2mL [facility] extract extract 03[facility]24 [facility] 00:00: - [facility] 00 [facility] allergy allergy 2-0 No .2mL [facility] extract extract 03[facility]24 [facility] 00:00: - [facility] 00 [facility] allergy allergy 2-0 No .2mL [facility] extract extract - [facility] 00:00: - [facility] 00 [facility] allergy allergy 2-0 No .2mL [facility] extract extract - [facility] 00:00: - [facility] 00 [facility] allergy allergy 2-0 No .2mL [facility] extract extract - [facility] 00:00: - [facility] 00 [facility] allergy allergy 2-0 No .2mL [facility] extract extract -14 [facility] 00:00: - [facility] 00 [facility] allergy allergy 2-0 No .2mL [facility] extract extract -14 [facility] 00:00: - [facility] 00 [facility] allergy allergy 2-0 No .2mL [facility] extract extract 7-14 [facility] 00:00: - [facility] 00 [facility] allergy allergy 2-0 No .2mL [facility] extract extract -14 [facility] 00:00: - [facility] 00 [facility] allergy allergy 2-0 No .2mL [facility] extract extract -14 [facility] 00:00: - [facility] 00 [facility] allergy allergy 2-0 No .2mL [facility] extract extract -14 [facility] 00:00: - [facility] 00 [facility] allergy allergy 2-0 No .2mL [facility] extract extract -14 [facility] 00:00: - [facility] 00 [facility] allergy allergy 2-0 No .2mL [facility] extract extract - [facility] 00:00: - [facility] 00 [facility] allergy allergy 2-0 No .2mL [facility] extract extract 03-24 [facility] 00:00: - [facility] 00 [facility] allergy allergy 2-0 No .2mL [facility] extract extract 03[facility]24 [facility] 00:00: - [facility] 00 [facility] allergy allergy 2-0 No .2mL [facility] extract extract 03[facility]24 [facility] 00:00: - [facility] 00 [facility] allergy allergy 2-0 No .2mL [facility] extract extract - [facility] 00:00: - [facility] 00 [facility] allergy allergy 2-0 No .2mL [facility] extract extract 03-24 [facility] 00:00: - [facility] 00 [facility] allergy allergy 2-0 No .2mL [facility] extract extract 03-24 [facility] 00:00: - [facility] 00 [facility] allergy allergy 2-0 No .2mL [facility] extract extract -14 [facility] 00:00: - [facility] 00 [facility] allergy allergy 2-0 No .2mL [facility] extract extract -14 [facility] 00:00: - [facility] 00 [facility] allergy allergy 2-0 No .2mL [facility] extract extract -14 [facility] 00:00: - [facility] 00 [facility] allergy allergy 2-0 No .2mL [facility] extract extract -14 [facility] 00:00: - [facility] 00 [facility] allergy allergy 2-0 No .2mL [facility] extract extract -14 [facility] 00:00: - [facility] 00 [facility] allergy allergy 2-0 No .2mL [facility] extract extract -14 [facility] 00:00: - [facility] 00 [facility] allergy allergy 2-0 No .2mL [facility] extract extract -14 [facility] 00:00: - [facility] 00 [facility] allergy allergy 2-0 No .2mL [facility] extract extract -14 [facility] 00:00: - [facility] 00 [facility] allergy allergy 2-0 No .2mL [facility] extract extract - [facility] 00:00: - [facility] 00 [facility] allergy allergy 2-0 No .2mL [facility] extract extract 03-24 [facility] 00:00: - [facility] 00 [facility] allergy allergy 2-0 No .2mL [facility] extract extract 03[facility]24 [facility] 00:00: - [facility] 00 [facility] allergy allergy 2-0 No .2mL [facility] extract extract 03-24 [facility] 00:00: - [facility] 00 [facility] allergy allergy 2-0 No .2mL [facility] extract extract 03[facility]24 [facility] 00:00: - [facility] 00 [facility] allergy allergy 2-0 No .2mL [facility] extract extract 03-24 [facility] 00:00: - [facility] 00 [facility] allergy allergy 2-0 No .2mL [facility] extract extract 03[facility]24 [facility] 00:00: - [facility] 00 [facility] allergy allergy 2-0 No .2mL [facility] extract extract 03-24 [facility] 00:00: - [facility] 00 [facility] allergy allergy 2-0 No .2mL [facility] extract extract 03[facility]24 [facility] 00:00: - [facility] 00 [facility] allergy allergy 2-0 No .2mL [facility] extract extract - [facility]:00: - [facility] 00 [facility] allergy allergy 2-0 No .2mL [facility] extract extract - [facility] 00:00: - [facility] 00 [facility] allergy allergy 2-0 No .2mL [facility] extract extract 03-24 [facility] 00:00: - [facility] 00 [facility] allergy allergy 2-0 No .2mL [facility] extract extract - [facility]:00: - [facility] 00 [facility] allergy allergy 2-0 No .2mL Common extract extract - [facility] 00:00: - [facility] 00 [facility] allergy allergy 2-0 No .2mL [facility] extract extract - [facility] 00:00: - [facility] 00 [facility] allergy allergy 2022-0 No .2mL [facility] extract extract 03-24 [facility] 00:00: - [facility] 00 [facility] allergy allergy 2-0 No .2mL [facility] extract extract 03-24 [facility] 00:00: - [facility] 00 [facility] allergy allergy 2-0 No .15mL [facility] extract extract 03-17 [facility] 00:00: - [facility] 00 [facility] allergy allergy 2-0 No .15mL [facility] extract extract 03-17 [facility] 00:00: - [facility] 00 [facility] allergy allergy 2-0 No .15mL Common extract extract 03-17 [facility] 00:00: - [facility] 00 [facility] allergy allergy 2-0 No .15mL [facility] extract extract 03-17 [facility] 00:00: - [facility] 00 [facility] allergy allergy 2-0 No .15mL [facility] extract extract 03-17 [facility] 00:00: - [facility] 00 [facility] allergy allergy 2-0 No .15mL [facility] extract extract 03-17 [facility] 00:00: - [facility] 00 [facility] allergy allergy 2-0 No .15mL [facility] extract extract 03[facility]17 [facility] 00:00: - [facility] 00 [facility] allergy allergy 2-0 No .15mL [facility] extract extract 03-17 [facility] 00:00: - [facility] 00 [facility] allergy allergy 2-0 No .15mL [facility] extract extract 03[facility]17 [facility] 00:00: - [facility] 00 [facility] allergy allergy 2-0 No .15mL [facility] extract extract 03-17 [facility] 00:00: - [facility] 00 [facility] allergy allergy 2-0 No .15mL [facility] extract extract 03[facility]17 [facility] 00:00: - [facility] 00 [facility] allergy allergy 2022-0 No .15mL [facility] extract extract 03-17 [facility] 00:00: - [facility] 00 [facility] allergy allergy 2-0 No .15mL [facility] extract extract 03[facility]17 [facility] 00:00: - [facility] 00 [facility] allergy allergy 2-0 No .15mL [facility] extract extract 03[facility]17 [facility] 00:00: - [facility] 00 [facility] allergy allergy 2022-0 No .15mL [facility] extract extract 03[facility]17 [facility] 00:00: - [facility] 00 [facility] allergy allergy 2022-0 No .15mL [facility] extract extract 03[facility]17 [facility] 00:00: - [facility] 00 [facility] allergy allergy 2022-0 No .15mL [facility] extract extract 03-17 [facility] 00:00: - [facility] 00 [facility] allergy allergy 2-0 No .15mL [facility] extract extract 03[facility]17 [facility] 00:00: - [facility] 00 [facility] allergy allergy 2-0 No .15mL [facility] extract extract 03-17 [facility] 00:00: - [facility] 00 [facility] allergy allergy 2-0 No .15mL [facility] extract extract 03-17 [facility] 00:00: - [facility] 00 [facility] allergy allergy 2-0 No .15mL [facility] extract extract 03-17 [facility] 00:00: - [facility] 00 [facility] allergy allergy 2-0 No .15mL [facility] extract extract 03-17 [facility] 00:00: - [facility] 00 [facility] allergy allergy 2-0 No .15mL [facility] extract extract 03[facility]17 [facility] 00:00: - [facility] 00 [facility] allergy allergy 2-0 No .15mL [facility] extract extract 03-17 [facility] 00:00: - [facility] 00 [facility] allergy allergy 2-0 No .15mL [facility] extract extract 03[facility]17 [facility] 00:00: - [facility] 00 [facility] allergy allergy 2-0 No .15mL [facility] extract extract 03[facility]17 [facility] 00:00: - [facility] 00 [facility] allergy allergy 2-0 No .15mL [facility] extract extract 03[facility]17 [facility] 00:00: - [facility] 00 [facility] allergy allergy 2022-0 No .15mL [facility] extract extract 03[facility]17 [facility] 00:00: - [facility] 00 [facility] allergy allergy 2022-0 No .15mL [facility] extract extract 03[facility]17 [facility] 00:00: - [facility] 00 [facility] allergy allergy 2022-0 No .15mL [facility] extract extract 03[facility]17 [facility] 00:00: - [facility] 00 [facility] allergy allergy 2022-0 No .15mL [facility] extract extract 03-17 [facility] 00:00: - [facility] 00 [facility] allergy allergy 2022-0 No .15mL [facility] extract extract 03[facility]17 [facility] 00:00: - [facility] 00 [facility] allergy allergy 2022-0 No .15mL [facility] extract extract 03-17 [facility] 00:00: - [facility] 00 [facility] allergy allergy 2022-0 No .15mL [facility] extract extract 03[facility]17 [facility] 00:00: - [facility] 00 [facility] allergy allergy 2-0 No .15mL [facility] extract extract 03[facility]17 [facility] 00:00: - [facility] 00 [facility] allergy allergy 2-0 No .15mL [facility] extract extract 03[facility]17 [facility] 00:00: - [facility] 00 [facility] allergy allergy 2-0 No .15mL [facility] extract extract 03[facility]17 [facility] 00:00: - [facility] 00 [facility] allergy allergy 2-0 No .15mL [facility] extract extract 03-17 [facility] 00:00: - [facility] 00 [facility] allergy allergy 2-0 No .15mL [facility] extract extract 03[facility]17 [facility] 00:00: - [facility] 00 [facility] allergy allergy 2-0 No .15mL [facility] extract extract 03[facility]17 [facility] 00:00: - [facility] 00 [facility] allergy allergy 2-0 No .15mL [facility] extract extract 03[facility]17 [facility] 00:00: - [facility] 00 [facility] allergy allergy 2-0 No .15mL [facility] extract extract 03[facility]17 [facility] 00:00: - [facility] 00 [facility] allergy allergy 2-0 No .15mL [facility] extract extract 03[facility]17 [facility] 00:00: - [facility] 00 [facility] allergy allergy 2-0 No .15mL [facility] extract extract 03[facility]17 [facility] 00:00: - [facility] 00 [facility] allergy allergy 2-0 No .15mL [facility] extract extract 03[facility]17 [facility] 00:00: - [facility] 00 [facility] allergy allergy 2022-0 No .15mL [facility] extract extract 03[facility]17 [facility] 00:00: - [facility] 00 [facility] allergy allergy 2-0 No .15mL [facility] extract extract 03[facility]17 [facility] 00:00: - [facility] 00 [facility] allergy allergy 2022-0 No .15mL [facility] extract extract 03[facility]17 [facility] 00:00: - [facility] 00 [facility] allergy allergy 2022-0 No .15mL [facility] extract extract 03[facility]17 [facility] 00:00: - [facility] 00 [facility] allergy allergy 2022-0 No .15mL [facility] extract extract 03[facility]17 [facility] 00:00: - [facility] 00 [facility] allergy allergy 2022-0 No .15mL [facility] extract extract 03[facility]17 [facility] 00:00: - [facility] 00 [facility] allergy allergy 2-0 No .15mL [facility] extract extract 03[facility]17 [facility] 00:00: - [facility] 00 [facility] allergy allergy 2-0 No .15mL [facility] extract extract 03[facility]17 [facility] 00:00: - [facility] 00 [facility] allergy allergy 2-0 No .15mL [facility] extract extract 03[facility]17 [facility] 00:00: - [facility] 00 [facility] allergy allergy 2-0 No .15mL [facility] extract extract 03[facility]17 [facility] 00:00: - [facility] 00 [facility] allergy allergy 2-0 No .15mL [facility] extract extract 03[facility]17 [facility] 00:00: - [facility] 00 [facility] allergy allergy 2-0 No .15mL [facility] extract extract 03[facility]17 [facility] 00:00: - [facility] 00 [facility] allergy allergy 2-0 No .15mL [facility] extract extract 03[facility]17 [facility] 00:00: - [facility] 00 [facility] allergy allergy 2-0 No .15mL [facility] extract extract 03[facility]17 [facility] 00:00: - [facility] 00 [facility] allergy allergy 2-0 No .15mL [facility] extract extract 03[facility]17 [facility] 00:00: - [facility] 00 [facility] allergy allergy 2-0 No .15mL [facility] extract extract 03[facility]17 [facility] 00:00: - [facility] 00 [facility] allergy allergy 2-0 No .15mL [facility] extract extract 03[facility]17 [facility] 00:00: - [facility] 00 [facility] allergy allergy 2-0 No .15mL [facility] extract extract 03[facility]17 [facility] 00:00: - [facility] 00 [facility] allergy allergy 2022-0 No .15mL [facility] extract extract 03[facility]17 [facility] 00:00: - [facility] 00 [facility] allergy allergy 2-0 No .15mL [facility] extract extract 03[facility]17 [facility] 00:00: - [facility] 00 [facility] allergy allergy 2022-0 No .15mL [facility] extract extract 03[facility]17 [facility] 00:00: - [facility] 00 [facility] allergy allergy 2022-0 No .15mL [facility] extract extract 03[facility]17 [facility] 00:00: - [facility] 00 [facility] allergy allergy 2022-0 No .15mL [facility] extract extract 03[facility]17 [facility] 00:00: - [facility] 00 [facility] allergy allergy 2-0 No .15mL [facility] extract extract 03[facility]17 [facility] 00:00: - [facility] 00 [facility] allergy allergy 2-0 No .15mL [facility] extract extract 03[facility]17 [facility] 00:00: - [facility] 00 [facility] allergy allergy 2-0 No .15mL [facility] extract extract 03[facility]17 [facility] 00:00: - [facility] 00 [facility] allergy allergy 2-0 No .15mL [facility] extract extract 03[facility]17 [facility] 00:00: - [facility] 00 [facility] allergy allergy 2-0 No .15mL [facility] extract extract 03[facility]17 [facility] 00:00: - [facility] 00 [facility] allergy allergy 2-0 No .15mL [facility] extract extract 03[facility]17 [facility] 00:00: - [facility] 00 [facility] allergy allergy 2-0 No .15mL [facility] extract extract 03[facility]17 [facility] 00:00: - [facility] 00 [facility] allergy allergy 2-0 No .15mL [facility] extract extract 03[facility]17 [facility] 00:00: - [facility] 00 [facility] allergy allergy 2022-0 No .15mL [facility] extract extract 03[facility]17 [facility] 00:00: - [facility] 00 [facility] allergy allergy 2-0 No .15mL [facility] extract extract 03[facility]17 [facility] 00:00: - [facility] 00 [facility] allergy allergy 2-0 No .15mL [facility] extract extract 03[facility]17 [facility] 00:00: - [facility] 00 [facility] allergy allergy 2-0 No .15mL [facility] extract extract 03[facility]17 [facility] 00:00: - [facility] 00 [facility] Montelukast Montelukast 2021-0 No 1{table QD Montelukas [...] pirit one) one) 00:00: - [facility] 00 [facility] Kenalog Kenalog 0 No 40mg Common (Triamcinol (Triamcinol 7-26 S pirit one) one) 00:00: - [facility] 00 [facility] Lyubov Kenalog 0 No 40mg [facility] (Triamcinol (Triamcinol 7-26 S pirit one) one) 00:00: - [facility] 00 [facility] Kenjosh Kenalog 0 No 40mg [facility] (Triamcinol (Triamcinol 7-26 S pirit one) one) 00:00: - [facility] 00 [facility] Kenjosh Kenalog 0 No 40mg [facility] (Triamcinol (Triamcinol 7-26 S pirit one) one) 00:00: - [facility] 00 [facility] Kenjosh Kenalog 0 No 40mg [facility] (Triamcinol (Triamcinol 7-26 S pirit one) one) 00:00: - [facility] 00 [facility] Kenjosh Kenalog 0 No 40mg [facility] (Triamcinol (Triamcinol 7-26 S pirit one) one) 00:00: - [facility] 00 [facility] Kenjosh Kenalog 0 No 40mg [facility] (Triamcinol (Triamcinol 7-26 S pirit one) one) 00:00: - [facility] 00 [facility] Kenalog Kenalog 0 No 40mg [facility] (Triamcinol (Triamcinol 7-26 S pirit one) one) 00:00: - [facility] 00 [facility] Kenalog Kenalog 2020-0 No 40mg [facility] (Triamcinol (Triamcinol 7-26 S pirit one) one) 00:00: - [facility] 00 [facility] Kenalog Kenalog 2020-0 No 40mg [facility] (Triamcinol (Triamcinol 7-26 S pirit one) one) 00:00: - [facility] 00 [facility] Kenalog Kenalog 2020-0 No 40mg [facility] (Triamcinol (Triamcinol 7-26 S pirit one) one) 00:00: - [facility] 00 [facility] Kenalog Kenalog 2020-0 No 40mg [facility] (Triamcinol (Triamcinol 7-26 S pirit one) one) 00:00: - [facility] 00 [facility] Kenalog Kenalog 2020-0 No 40mg [facility] (Triamcinol (Triamcinol 7-26 S pirit one) one) 00:00: - [facility] 00 [facility] Kenalog Kenalog 2020-0 No 40mg [facility] (Triamcinol (Triamcinol 7-26 S pirit one) one) 00:00: - [facility] 00 [facility] Kenalog Kenalog 0 No 40mg [facility] (Triamcinol (Triamcinol 7-26 S pirit one) one) 00:00: - [facility] 00 [facility] Kenalog Kenalog 0 No 40mg [facility] (Triamcinol (Triamcinol 7-26 S pirit one) one) 00:00: - [facility] 00 [facility] Kenalog Kenalog 2020-0 No 40mg [facility] (Triamcinol (Triamcinol 7-26 S pirit one) one) 00:00: - [facility] 00 [facility] Kenalog Kenalog 2020-0 No 40mg [facility] (Triamcinol (Triamcinol 7-26 S pirit one) one) 00:00: - [facility] 00 [facility] Kenalog Kenalog 2020-0 No 40mg [facility] (Triamcinol (Triamcinol 7-26 S pirit one) one) 00:00: - [facility] 00 [facility] Kenalog Kenalog 2020-0 No 40mg [facility] (Triamcinol (Triamcinol 7-26 S pirit one) one) 00:00: - [facility] 00 [facility] Kenalog Kenalog 2020-0 No 40mg [facility] (Triamcinol (Triamcinol 7-26 S pirit one) one) 00:00: - [facility] 00 [facility] Kenalog Kenalog 2021-0 No 40mg [facility] (Triamcinol (Triamcinol 7-26 S pirit one) one) 00:00: - [facility] 00 [facility] Lyubov Kenalog 2020-0 No 40mg [facility] (Triamcinol (Triamcinol 7-26 S pirit one) one) 00:00: - [facility] 00 [facility] Lyubov Kenalog 0 No 40mg [facility] (Triamcinol (Triamcinol 7-26 S pirit one) one) 00:00: - [facility] 00 [facility] Lyubov Kenalog 0 No 40mg [facility] (Triamcinol (Triamcinol 7-26 S pirit one) one) 00:00: - [facility] 00 [facility] Lyubov Kenjosh 0 No 40mg [facility] (Triamcinol (Triamcinol 7-26 S pirit one) one) 00:00: - [facility] 00 [facility] Lyubov Kenjosh 0 No 40mg [facility] (Triamcinol (Triamcinol 7-26 S pirit one) one) 00:00: - [facility] 00 [facility] Lyubov Kenjosh 2020-0 No 40mg [facility] (Triamcinol (Triamcinol 7-26 S pirit one) one) 00:00: - [facility] 00 [facility] Lyubov Kenalog 2020-0 No 40mg [facility] (Triamcinol (Triamcinol 7-26 S pirit one) one) 00:00: - [facility] 00 [facility] Lyubov Kenalog 2020-0 No 40mg [facility] (Triamcinol (Triamcinol 7-26 S pirit one) one) 00:00: - [facility] 00 [facility] Lyubov Kenalog 2020-0 No 40mg [facility] (Triamcinol (Triamcinol 7-26 S pirit one) one) 00:00: - [facility] 00 [facility] Lyubov Kenalog 2020-0 No 40mg [facility] (Triamcinol (Triamcinol 7-26 S pirit one) one) 00:00: - [facility] 00 [facility] Lyubov Kenalog 2020-0 No 40mg [facility] (Triamcinol (Triamcinol 7-26 S pirit one) one) 00:00: - [facility] 00 [facility] Kenalog Kenalog 0 No 40mg [facility] (Triamcinol (Triamcinol 7-26 S pirit one) one) 00:00: - [facility] 00 [facility] Kenalog Kenalog 0 No 40mg [facility] (Triamcinol (Triamcinol 7-26 S pirit one) one) 00:00: - [facility] 00 [facility] Kenalog Kenalog 2020-0 No 40mg [facility] (Triamcinol (Triamcinol 7-26 S pirit one) one) 00:00: - [facility] 00 [facility] Kenalog Kenalog 2020-0 No 40mg [facility] (Triamcinol (Triamcinol 7-26 S pirit one) one) 00:00: - [facility] 00 [facility] Kenalog Kenalog 0 No 40mg [facility] (Triamcinol (Triamcinol 7-26 S pirit one) one) 00:00: - [facility] 00 [facility] Kenalog Kenalog 0 No 40mg [facility] (Triamcinol (Triamcinol 7-26 S pirit one) one) 00:00: - [facility] 00 [facility] Kenjosh Kenalog 2020-0 No 40mg [facility] (Triamcinol (Triamcinol 7-26 S pirit one) one) 00:00: - [facility] 00 [facility] Kenalog Kenalog 2020-0 No 40mg [facility] (Triamcinol (Triamcinol 7-26 S pirit one) one) 00:00: - [facility] 00 [facility] Kenalog Kenalog 2020-0 No 40mg [facility] (Triamcinol (Triamcinol 7-26 S pirit one) one) 00:00: - [facility] 00 [facility] Kenalog Kenalog 2020-0 No 40mg [facility] (Triamcinol (Triamcinol 7-26 S pirit one) one) 00:00: - [facility] 00 [facility] Kenalog Kenalog 2020-0 No 40mg [facility] (Triamcinol (Triamcinol 7-26 S pirit one) one) 00:00: - [facility] 00 [facility] Kenalog Kenalog 0 No 40mg [facility] (Triamcinol (Triamcinol 7-26 S pirit one) one) 00:00: - [facility] 00 [facility] Kenalog Kenalog 2020-0 No 40mg [facility] (Triamcinol (Triamcinol 7-26 S pirit one) one) 00:00: - [facility] 00 [facility] Kenalog Kenalog 2020-0 No 40mg [facility] (Triamcinol (Triamcinol 7-26 S pirit one) one) 00:00: - [facility] 00 [facility] Kenalog Kenalog 0 No 40mg [facility] (Triamcinol (Triamcinol 7-26 S pirit one) one) 00:00: - [facility] 00 [facility] Kenalog Kenalog 0 No 40mg [facility] (Triamcinol (Triamcinol 7-26 S pirit one) one) 00:00: - [facility] 00 [facility] Kenalog Kenalog 0 No 40mg [facility] (Triamcinol (Triamcinol 7-26 S pirit one) one) 00:00: - [facility] 00 [facility] Kenalog Kenalog 0 No 40mg [facility] (Triamcinol (Triamcinol 7-26 S pirit one) one) 00:00: - [facility] 00 [facility] Kenalog Kenalog 2020-0 No 40mg [facility] (Triamcinol (Triamcinol 7-26 S pirit one) one) 00:00: - [facility] 00 [facility] Kenalog Kenalog 2020-0 No 40mg [facility] (Triamcinol (Triamcinol 7-26 S pirit one) one) 00:00: - [facility] 00 [facility] Kenalog Kenalog 2020-0 No 40mg [facility] (Triamcinol (Triamcinol 7-26 S pirit one) one) 00:00: - [facility] 00 [facility] Kenalog Kenalog 2020-0 No 40mg [facility] (Triamcinol (Triamcinol 7-26 S pirit one) one) 00:00: - [facility] 00 [facility] Kenalog Kenalog 2020-0 No 40mg [facility] (Triamcinol (Triamcinol 7-26 S pirit one) one) 00:00: - [facility] 00 [facility] Lyubov Mcarthur No 40mg [facility] (Triamcinol (Triamcinol 7-26 S pirit one) one) 00:00: - [facility] 00 [facility] Lyubov Mcarthur No 40mg [facility] (Triamcinol (Triamcinol 7-26 S pirit one) one) 00:00: - [facility] 00 [facility] Lyubov Mcarthur No 40mg [facility] (Triamcinol (Triamcinol 7-26 S pirit one) one) 00:00: - [facility] 00 [facility] Lyubov No 40mg [facility] (Triamcinol (Triamcinol 7-26 S pirit one) one) 00:00: - [facility] 00 [facility] Lyubov No 40mg [facility] (Triamcinol (Triamcinol 7-26 S pirit one) one) 00:00: - [facility] 00 [facility] Flonase Flonase 2018-09 Yes Na Gordon 2 spray in [facility] 2-11 each [facility] 00:00: nostril - [facility] Lyrica Lyrica 2018-09 Yes Na Gordon 1 capsule C ommon 1-11 [facility] 00:00: - [facility] esomeprazol 2018-09 Yes 20mg Q2D Take 20 [...] 0-[address] it-min 11:36: daily. [facility] ([facility] 47 l IMMUNE PLUS ORAL) simethicone [...] 0-[address] it-min 11:36: daily. [facility]osp[facility] ([facility] 47 l IMMUNE PLUS ORAL) simethicone [...] 0-[address] it-min 11:36: daily. [facility] 47 l IMMUNE PLUS ORAL) simethicone 2018-09 [...] tablet 00:00: [facility] losartan 2018-0 Yes 25mg QD Take 25 mg [facility] ([facility]) 25 4-[address] MG tablet 00:00: [facility] losartan 2019-0 Yes 25mg QD Take 25 mg [facility] ([facility]) 25 4-[address] MG tablet 00:00: [facility] rosuvastati 2019-0 Yes 5mg Q2D Take [...] Na Gordon 1 tablet Common at bedtime [facility] Meclizine Meclizine Yes Na Gordon 1 tablet [facility] HCl HCl as needed [facility] losartan losartan Yes Na Gordon one tab C ommon daily [facility] Flagyl Flagyl Yes Na Gordon 1 tablet Comm on [facility] Cipro Cipro Yes Na Gordon 1 tablet Common [facility] Aspirin 81 Aspirin 81 Yes Na Gordon 1 tablet Common [facility] Prilosec Prilosec Yes Na Gordon 1 tablet Common OTC OTC [facility] Metronidazo Metronidazo Yes Na Gordon 1 tablet Common le le [facility] Famotidine Famotidine No 1{table QD Famotidine [...] dose 2019-08-21 [facility]pleted [facility] 09:17:00 - [facility] Afluria single dose Afluria single dose 2019-08-21 Completed [facility] 09:17:00 - [facility] Afluria single dose Afluria single dose 2019-08-21 Completed [facility] 09:17:00 - [facility] Afluria single dose Afluria single dose 2019-08-21 Completed [facility] 09:17:00 - [facility] Afluria single dose Afluria single dose 2019-08-21 Completed [facility] 09:17:00 - [facility] Afluria single dose Afluria single dose 2019-08-21 Completed [facility] 09:17:00 - [facility] Afluria single dose Afluria single dose 2019-08-21 Completed [facility] 09:17:00 - [facility] Afluria single dose Afluria single dose 2019-08-21 Completed [facility] 09:17:00 [facility] Afluria single dose Afluria single dose 2019-08-21 Completed [facility] 09:17:00 - [facility] Afluria single dose Afluria single dose 2019-08-21 Completed [facility] 09:17:00 - [facility] Afluria single dose Afluria single dose 2019-08-21 Completed [facility] 09:17:00 - [facility] Afluria single dose Afluria single dose 2019-08-21 Completed [facility] 09:17:00 - [facility] Afluria single dose Afluria single dose 2019-08-21 Completed [facility] 09:17:00 - [facility] Afluria single dose Afluria single dose 2019-08-21 Completed [facility] 09:17:00 - [facility] Afluria single dose Afluria single dose 2019-08-21 Completed [facility] 09:17:00 - [facility] Afluria single dose Afluria single dose 2019-08-21 Completed [facility] 09:17:00 - [facility] Afluria single dose Afluria single dose 2019-08-21 Completed [facility] 09:17:00 - [facility] Afluria single dose Afluria single dose 2019-08-21 Completed [facility] 09:17:00 - [facility] Afluria single dose Afluria single dose 2019-08-21 Completed [facility] 09:17:00 - [facility] Afluria single dose Afluria single dose 2019-08-21 Completed [facility] 09:17:00 - [facility] Afluria single dose Afluria single dose 2019-08-21 Completed [facility] 09:17:00 - [facility] Afluria single dose Afluria single dose 2019-08-21 Completed [facility] 09[facility]17:00 [facility] Afluria single dose Afluria single dose 2019-08-21 Completed [facility] 09:17:00 - [facility] Afluria single dose Afluria single dose 2019-08-21 Completed [facility] 09:17:00 - [facility] Afluria single dose Afluria single dose 2019-08-21 Completed [facility] 09:17:00 - [facility] Afluria single dose Afluria single dose 2019-08-21 Completed [facility] 09:17:00 [facility] Afluria single dose Afluria single dose 2019-08-21 Completed [facility] 09:17:00 - [facility] Afluria single dose Afluria single dose 2019-08-21 Completed [facility] 09:17:00 - [facility] Afluria single dose Afluria single dose 2019-08-21 Completed [facility] 09:17:00 - [facility] Afluria single dose Afluria single dose 2019-08-21 Completed [facility] 09:17:00 - [facility] Afluria single dose Afluria single dose 2019-08-21 Completed [facility] 09:17:00 - [facility] Afluria single dose Afluria single dose 2019-08-21 Completed [facility] 09:17:00 - [facility] Afluria single dose Afluria single dose 2019-08-21 Completed [facility] 09:17:00 - [facility] Afluria single dose Afluria single dose 2019-08-21 Completed [facility] 09:17:00 - [facility] Afluria single dose Afluria single dose 2019-08-21 Completed [facility] 09:17:00 [facility] Afluria single dose Afluria single dose 2019-08-21 Completed [facility] 09:17:00 - [facility] Afluria single dose Afluria single dose 2019-08-21 Completed [facility] 09:17:00 - [facility] Afluria single dose Afluria single dose 2019-08-21 Completed [facility] 09:17:00 [facility] Afluria single dose Afluria single dose 2019-08-21 Completed [facility] 09:17:00 [facility] Afluria single dose Afluria single dose 2019-08-21 Completed [facility] 09:17:00 - [facility] Afluria single dose Afluria single dose 2019-08-21 Completed [facility] 09:17:00 - [facility] Afluria single dose Afluria single dose 2019-08-21 Completed [facility] 09:17:00 - [facility] Afluria single dose Afluria single dose 2019-08-21 Completed [facility] 09:17:00 - [facility] Afluria single dose Afluria single dose 2019-08-21 Completed [facility] 09:17:00 - [facility] Afluria single dose Afluria single dose 2019-08-21 Completed [facility] 09:17:00 - [facility] Afluria single dose Afluria single dose 2019-08-21 Completed [facility] 09:17:00 - [facility] Afluria single dose Afluria single dose 2019-08-21 Completed [facility] 09:17:00 - [facility] Afluria single dose Afluria single dose 2019-08-21 Completed [facility] 09:17:00 - [facility] Afluria single dose Afluria single dose 2019-08-21 Completed [facility] 09:17:00 - [facility] Afluria single dose Afluria single dose 2019-08-21 Completed [facility] 09:17:00 - [facility] Afluria single dose Afluria single dose 2019-08-21 Completed [facility] 09:17:00 - [facility] Afluria single dose Afluria single dose 2019-08-21 Completed [facility] 09:17:00 [facility] Afluria single dose Afluria single dose 2019-08-21 Completed [facility] 09[facility]17:00 - [facility] [facility] single dose Afluria single dose 2019-08-21 [facility] 09:17:00 - [facility] Afluria single dose Afluria single dose 2019-08-21 [facility]pleted [facility] 09:17:00 [facility] Afluria single dose Afluria single dose 2019-08-21 Completed [facility] 09:17:00 [facility] Afluria single dose Afluria single dose 2019-08-21 Completed [facility] 09:17:00 [facility] Afluria single dose Afluria single dose 2019-08-21 Completed [facility] 09:17:00 [facility] Afluria single dose Afluria single dose 2019-08-21 Completed [facility] 09:17:00 - [facility] Afluria single dose Afluria single dose 2019-08-21 Completed [facility] 09:17:00 - [facility] Afluria single dose Afluria single dose 2019-08-21 Completed [facility] 09:17:00 [facility] Afluria single dose Afluria single dose 2019-08-21 Completed [facility] 09:17:00 [facility] Afluria single dose Afluria single dose 2019-08-21 Completed [facility] 00:00:00 [facility] Vital Signs Vital Name Observation Time Observation Value Comments Source height 2022-08-22 09:20:00 70 [in_i] [facility] weight 2022-08-22 09:20:00 188.2 [lb_av] [facility] temperature 2022-08-22 09:20:00 98.2 [degF] [facility] bmi 2022-08-22 09:20:00 27.00 kg/m2 [facility] oximetry 2022-08-22 09:20:00 97 % [facility] respiratory rate 2022-08-22 09:20:00 16 /min Comm on [facility] blood pressure 2022-08-22 09:20:00 125 mm[Hg] [facility] systolic [facility] blood pressure 2022-08-22 09:20:00 83 mm[Hg] [facility] diastolic [facility] height 2022-08-18 09:00:00 70 [in_i] [facility] weight 2022-08-18 09:00:00 190.1 [lb_av] [facility] temperature 2022-08-18 09:00:00 98.6 [degF] [facility] bmi 2022-08-18 09:00:00 27.27 kg/m2 [facility] oximetry 2022-08-18 09:00:00 99 % [facility] respiratory rate 2022-08-18 09:00:00 15 /min Comm on [facility] blood pressure 2022-08-18 09:00:00 128 mm[Hg] Common [facility] - systolic [facility] blood pressure 2022-08-18 09:00:00 75 mm[Hg] Common [facility] - diastolic [facility] height 2022-05-27 16:40:00 70 [in_i] [facility] weight 2022-05-27 16:40:00 190 [lb_av] [facility] bmi 2022-05-27 16:40:00 27.26 kg/m2 [facility] height 2022-05-26 08:20:00 70 [in_i] [facility] weight 2022-05-26 08:20:00 171 [lb_av] [facility] temperature 2022-05-26 08:20:00 97.9 [degF] [facility] bmi 2022-05-26 08:20:00 24.53 kg/m2 [facility] oximetry 2022-05-26 08:20:00 99 % [facility] respiratory rate 2022-05-26 08:20:00 15 /min Comm on [facility] blood pressure 2022-05-26 08:20:00 120 mm[Hg] Common [facility] - systolic [facility] blood pressure 2022-05-26 08:20:00 80 mm[Hg] [facility] - diastolic [facility] height 2021-11-18 15:30:00 70 [in_i] [facility] weight 2021-11-18 15:30:00 192 [lb_av] [facility] temperature 2021-11-18 15:30:00 97.1 [degF] [facility] bmi 2021-11-18 15:30:00 27.55 kg/m2 [facility] oximetry 2021-11-18 15:30:00 98 % [facility] respiratory rate 2021-11-18 15:30:00 16 /min Comm on [facility] blood pressure 2021-11-18 15:30:00 122 mm[Hg] [facility] systolic [facility] blood pressure 2021-11-18 15:30:00 88 mm[Hg] [facility] diastolic [facility] height 2021-11-04 15:00:00 70 [in_i] [facility] weight 2021-11-04 15:00:00 195.2 [lb_av] [facility] temperature 2021-11-04 15:00:00 97.9 [degF] [facility] bmi 2021-11-04 15:00:00 28.01 kg/m2 [facility] oximetry 2021-11-04 15:00:00 97 % [facility] respiratory rate 2021-11-04 15:00:00 18 /min Comm on [facility] blood pressure 2021-11-04 15:00:00 114 mm[Hg] [facility] blood pressure 2021-11-04 15:00:00 80 mm[Hg] [facility] Procedures Procedure Date / Time Performed Performing Clinician [facility] e [id number] 2020-08-25 00:00:00 NIKKO [facility] [id number] 2020-08-25 00:00:00 NIKKO [facility] [id number] 2020-08-25 00:00:00 NIKKO [facility] Plan of Care Planned Activity Planned Date Details Comments Source Future Scheduled 2023-05-07 [facility] Test 08:49:45 malignant neoplasm of colon (procedure) [code = 269284080] Future Scheduled 2023-05-07 [facility] Test 08:49:45 malignant neoplasm of colon (procedure) [code = 147159129] Future Scheduled 2023-05-07 [facility] Test 08:49:45 malignant neoplasm of colon (procedure) [code = 236016553] Future Scheduled 2023-05-07 COVID-19 [facility]ACCINE (#[facility]) [facility] 08:49:45 [code = COVID-19 VACCINE (#1)] Future Scheduled 2023-05-07 [facility] Test 08:49:45 malignant neoplasm of colon (procedure) [code = 172259565] Future Scheduled 2023-05-07 [facility] Test 08:49:45 malignant neoplasm of colon (procedure) [code = 651580324] Future Scheduled 2023-05-07 SHINGLES VACCINES (1 [facility] 08:49:45 of 2) [code = SHINGLES VACCINES (1 of 2)] Future Scheduled 2023-05-07 INFLUENZA VACCINE [facility] Test 08:49:45 (#1) [code = INFLUENZA VACCINE (#1)] Future Scheduled 2023 [facility] Test 13:50:53 malignant neoplasm of colon (procedure) [code = 782999217] Future Scheduled 2023 [facility] Test 13:50:53 malignant neoplasm of colon (procedure) [code = 996988423] Future Scheduled 2023 [facility] Test 13:50:53 malignant neoplasm of colon (procedure) [code = 201140334] Future Scheduled 2023 COVID-19 [facility]ACCINE (#[facility] Test 13:50:53 [code = COVID-19 VACCINE (#1)] Future Scheduled 2023 [facility] Test 13:50:53 malignant neoplasm of colon (procedure) [code = 575088637] Future Scheduled 2023 [facility] Test 13:50:53 malignant neoplasm of colon (procedure) [code = 368617946] Future Scheduled 2023 SHINGLES VACCINES (1 [facility] 13:50:53 of 2) [code = SHINGLES VACCINES (1 of 2)] Future Scheduled 2023 [facility]ZA [facility]ACCINE [facility] 13:50:53 [code = INFLUENZA VACCINE] Future Scheduled 2022-09-29 COVID-19 VACCINE (#1) [facility] 09:05:10 [code = COVID-19 VACCINE (#1)] Future Scheduled 2022-09-29 [facility] SCREENING [facility] 09:05:10 [code = COLONOSCOPY SCREENING] Future Scheduled 2022-09-29 [facility]ZA VACCINE [facility] 09:05:10 [code = INFLUENZA VACCINE] Future Scheduled 2022-05-19 HEPATITIS B VACCINES [facility] Test 08:26:15 (1 of 3 - 3-dose series) [code = HEPATITIS B VACCINES (1 of 3 - 3-dose series)] Future Scheduled 2022-05-19 COVID-19 VACCINE (#1) [facility] Test 08:26:15 [code = COVID-19 VACCINE (#1)] Future Scheduled 2022-05-19 [facility] Test 08:26:15 (procedure) [code = 417143097] Future Scheduled 2022-05-19 [facility] SCREENING [facility] Test 08:26:15 [code = COLONOSCOPY SCREENING] Future Scheduled 2022-05-19 INFLU[facility]ZA VACCINE [facility] Test 08:26:15 [code = INFLUENZA VACCINE] Future Scheduled COVID-19 VACCINE (1) [facility] Test [code = COVID-19 VACCINE (1)] Future Scheduled [facility] C [facility] Test (procedure) [code = 786729006] Future Scheduled INFLUENZA VACCINE [facility] Test [code = INFLUENZA VACCINE] Encounters Start End Encounter Admission Attending Care Care Encounter Source Date/Time Date/Time Type Type Clinicians Facility Department ID 2023-01-13 Outpatient Srinivasan, [facility] [id number] Common 14:40:00 Avnee [id number] [facility] 2023-01-12 [facility] [id number] Common 07:44:00 Avnee [id number] [facility] 2022-12-29 Outpatient Srinivasan, [facility] [id number] Common 10:58:00 Avnee [id number] [facility] 2022-12-27 Outpatient Srinivasan, [facility] [id number] Common 16:35:00 Avnee [id number] [facility] 2022-12-15 Outpatient Srinivasan, [facility] [id number] Common 15:17:00 Avnee [id number] [facility] 2022-11-17 Outpatient Ivette, STLMLC ST[facility] [id number] Common 10:15:00 Radha 14531 [facility] 2022-10-27 Outpatient GORDON, Na STLMLC ST[facility] [id number] 2 Common 10:59:00 [id number] [facility] 2022-10-24 Outpatient GORDON, Na STLMLC ST[facility] [id number] 2 Common 13:17:01 [id number] [facility] 2022-09-29 Outpatient GORDON, Na STLMLC ST[facility]C [id number] 2 Common 09:23:01 [id number] [facility] 2022-08-22 Outpatient Gordon, Na STLMLC ST[facility]C [id number] 2 Common 10:07:00 [id number] [facility] 2022-08-18 Outpatient Gordon, Na STLMLC ST[facility]C [id number] 2 Common 10:01:00 [id number] [facility] 2022-05-25 Outpatient Gordon, Na STLMLC ST[facility]C [id number] Common 10:07:01 [facility] 2022-05-11 Outpatient Gordon, Na STLMLC STL[facility]C [id number] 2 Common 10:06:00 [id number] [facility] 2022-03-16 Outpatient Gordon, Na STLMLC ST[facility]C [id number] 2 Common 14:14:00 [facility] 2022-02-01 Outpatient Gordon, Na STLMLC STLMLC [id number] 2 Common 08:59:00 [facility] 2022-01-31 Outpatient [facility] [id number] NE 16:33:12 [id number] [facility] 2022-01-28 Outpatient Gordon, Na STLMLC STLMLC [id number] 2 Common 08:06:01 [facility] 2021-10-06 Outpatient Gordon, Na STLMLC STL[facility]C [id number] 2 Common 13:29:51 [id number] [facility] 2021-10-06 Outpatient Gordon, Na STLMLC ST[facility]C [id number] 2 Common 12:06:19 [id number] [facility] 2021-10-06 Outpatient Gordon, Na STLMLC ST[facility]C [id number] 2 Common 11:39:51 [id number] [facility] 2021-10-06 Outpatient Gordon, Na STLMLC ST[facility]C [id number] 2 Common 11:10:16 [id number] [facility] 2020-09-18 Inpatient FRANSISCA Bennett [facility] [id number] [facility] 18:51:00 Dwayne Garcia [facility] 2020-08-25 Inpatient Pawan Baum [facility] DAYS [id number] [facility] 07:00:00 84 [facility] 2022-10-20 2022-10-20 (INJ) STLMLC STLMLC [id number] Co mmon 00:00:00 00:00:00 Injection Spir [facility] 2022-10-13 2022-10-13 ([place]) Nurse STLMLC STLMLC [id number] Common 00:00:00 00:00:00 Visit [facility] 2022-10-06 2022-10-06 ([place]) Nurse STLMLC STLMLC [id number] Common 00:00:00 00:00:00 Visit [facility] 2022-09-29 2022-09-29 (INJ) STLMLC STLMLC [id number] Co mmon 00:00:00 00:00:00 Injection Spir [facility] 2022-09-28 2022-09-28 (TEL) STLMLC STLMLC [id number] Co mmon 00:00:00 00:00:00 [facility] 2022-09-22 2022-09-22 (INJ) STLMLC STLMLC [id number] Co mmon 00:00:00 00:00:00 Injection Spir [facility] 2022-09-152022-09-15 (INJ) STLMLC STLMLC [id number] Co mmon 00:00:00 00:00:00 Injection Spir [facility] 2022-09-08 2022-09-08 (INJ) STLMLC STLMLC [id number] Co mmon 00:00:00 00:00:00 Injection Spir [facility] 2022-09-01 2022-09-01 (INJ) STLMLC STLMLC [id number] Co mmon 00:00:00 00:00:00 Injection Spir it [facility] 2022-08-25 2022-08-25 (INJ) STLMLC STLMLC [id number] Co mmon 00:00:00 00:00:00 Injection Spir [facility] 2022-08-22 2022-08-22 OFFICE STLMLC STLMLC [id number] Co mmon 00:00:00 00:00:00 VISIT [facility] 4 [facility] 2022-08-18 2022-08-18 (INJ) STLMLC STLMLC [id number] Co mmon 00:00:00 00:00:00 Injection Spir [facility] 2022-08-11 2022-08-11 (INJ) STLMLC STLMLC [id number] Co mmon 00:00:00 00:00:00 Injection Spir [facility] 2022-08-02 2022-08-02 (INJ) STLMLC STLMLC [id number] Co mmon 00:00:00 00:00:00 Injection Spir [facility] 2022-07-28 2022-07-28 (NV) Nurse STLMLC STLMLC [id number] Common 00:00:00 00:00:00 Visit [facility] 2022-07-21 2022-07-21 (NV) Nurse STLMLC STLMLC [id number] Common 00:00:00 00:00:00 Visit [facility] 2022-07-14 2022-07-14 (NV) Nurse STLMLC STLMLC [id number] Common 00:00:00 00:00:00 Visit [facility] 2022-07-07 2022-07-07 (INJ) STLMLC STLMLC [id number] Co mmon 00:00:00 00:00:00 Injection Spir it [facility] 2022-06-30 2022-06-30 (TEL) STLMLC STLMLC [id number] Co mmon 00:00:00 00:00:00 [facility] 2022-06-30 2022-06-30 (NV) Nurse STLMLC STLMLC [id number] Common 00:00:00 00:00:00 Visit [facility] 2022-06-23 2022-06-23 (NV) Nurse STLMLC STLMLC [id number] Common 00:00:00 00:00:00 Visit [facility] 2022-06-16 2022-06-16 (NV) Nurse STLMLC STLMLC [id number] Common 00:00:00 00:00:00 Visit [facility] 2022-06-09 2022-06-09 (NV) Nurse STLMLC STLMLC [id number] Common 00:00:00 00:00:00 Visit [facility] 2022-05-27 2022-05-27 OFFICE STLMLC STLMLC [id number] Co mmon 00:00:00 00:00:00 VISIT EST Spir it PT LEVEL 3 - [facility] 2022-05-26 2022-05-26 OFFICE STLMLC STLMLC [id number] Co mmon 00:00:00 00:00:00 VISIT [facility] ESTAB PT - [facility] LEVEL 2 [facility] 2022-05-19 2022-05-19 (NV) Nurse STLMLC STLMLC [id number] Common 00:00:00 00:00:00 Visit [facility] 2022-05-12 2022-05-12 (INJ) STLMLC STLMLC [id number] Co mmon 00:00:00 00:00:00 Injection Spir it [facility] 2022-05-05 2022-05-05 (INJ) STLMLC STLMLC [id number] Co mmon 00:00:00 00:00:00 Injection Spir [facility] 2022-04-28 2022-04-28 (INJ) STLMLC STLMLC [id number] Co mmon 00:00:00 00:00:00 Injection Spir [facility] 2022-04-21 2022-04-21 (INJ) STLMLC STLMLC [id number] Co mmon 00:00:00 00:00:00 Injection Spir [facility] 2022-04-19 2022-04-19 (TEL) STLMLC STLMLC [id number] Co mmon 00:00:00 00:00:00 [facility] 2022-04-14 2022-04-14 (INJ) STLMLC STLMLC [id number] Co mmon 00:00:00 00:00:00 Injection Spir [facility] 2022-04-07 2022-04-07 (NV) Nurse STLMLC STLMLC [id number] Common 00:00:00 00:00:00 Visit [facility] 2022-03-31 2022-03-31 (NV) Nurse STLMLC STLMLC [id number] Common 00:00:00 00:00:00 Visit [facility] 2022-03-24 2022-03-24 (NV) Nurse STLMLC STLMLC [id number] Common 00:00:00 00:00:00 Visit [facility] 2022-03-17 2022-03-17 (INJ) STLMLC STLMLC [id number] Co mmon 00:00:00 00:00:00 Injection Spir [facility] 2022-03-09 2022-03-09 (TEL) STLMLC STLMLC [id number] Co mmon 00:00:00 00:00:00 [facility] 2022-03-08 2022-03-08 (TEL) STLMLC STLMLC [id number] Co mmon 00:00:00 00:00:00 [facility] 2022-03-08 2022-03-08 OFFICE STLMLC STLMLC [id number] Co mmon 00:00:00 00:00:00 VISIT EST Spir it PT LEVEL 3 [facility] 2022-03-03 2022-03-03 (INJ) STLMLC STLMLC [id number] Co mmon 00:00:00 00:00:00 Injection Spir it [facility] 2022-02-17 2022-02-17 (INJ) STLMLC STLMLC [id number] Co mmon 00:00:00 00:00:00 Injection Spir it [facility] 2022-02-10 2022-02-10 (NV) Nurse STLMLC STLMLC [id number] Common 00:00:00 00:00:00 [facility] 2022-02-03 2022-02-03 (INJ) STLMLC STLMLC [id number] Co mmon 00:00:00 00:00:00 Injection Spir [facility] 2022-01-27 2022-01-27 (INJ) STLMLC STLMLC [id number] Co mmon 00:00:00 00:00:00 Injection Spir it [facility] 2022-01-20 2022-01-20 (INJ) STLMLC STLMLC [id number] Co mmon 00:00:00 00:00:00 Injection Spir it [facility] 2022-01-13 2022-01-13 (INJ) STLMLC STLMLC [id number] Co mmon 00:00:00 00:00:00 Injection Spir it [facility] 2022-01-06 2022-01-06 (INJ) STLMLC STLMLC [id number] Co mmon 00:00:00 00:00:00 Injection Spir it [facility] 2021-12-30 2021-12-30 (INJ) STLMLC STLMLC [id number] Co mmon 00:00:00 00:00:00 Injection Spir it [facility] 2021-12-23 2021-12-23 (INJ) STLMLC STLMLC [id number] Co mmon 00:00:00 00:00:00 Injection Spir it [facility] 2021-12-16 2021-12-16 (INJ) STLMLC STLMLC [id number] Co mmon 00:00:00 00:00:00 Injection Spir [facility] 2021-12-09 2021-12-09 (INJ) STLMLC STLMLC [id number] Co mmon 00:00:00 00:00:00 Injection Spir [facility] 2021-12-07 2021-12-07 Travel 1.2.840.1 1.2.840.194 [id number] Methodi 00:00:00 00:00:[address] 3.430.2.7 0.2.7.3.698 [facility] .3.101051 084.8 l .8 2021-12-02 2021-12-02 Telephone Elias, 1.2.840.6 [id number] Methodi 00:00:00 00:00:[address] 3.430.2.7 Hospit a .3.931995 l .8 2021-12-02 2021-12-02 (TEL) STLMLC STLMLC [id number] Co mmon 00:00:00 00:00:00 [facility] 2021-12-02 2021-12-02 (NV) Nurse STLMLC STLMLC [id number] Common 00:00:00 00:00:00 Visit [facility] 2021-11-22 2021-11-22 (TEL) STLMLC STLMLC [id number] Co mmon 00:00:00 00:00:00 [facility] 2021-11-22 2021-11-22 (NV) Nurse STLMLC STLMLC [id number] Common 00:00:00 00:00:00 Visit [facility] 2021-11-18 2021-11-18 OFFICE STLMLC STLMLC [id number] Co mmon 00:00:00 00:00:00 VISIT [facility] LEVEL 2 [facility] 2021-11-04 2021-11-04 PREV VISIT STLMLC STLMLC [id number] Common 00:00:00 00:00:00 EST AGE Boom 40-64 - [facility] 2021-11-04 2021-11-04 (TEL) STLMLC STLMLC [id number] Co mmon 00:00:00 00:00:00 [facility] 2021-05-05 2021-05-05 Outpatient STLMLC STLMLC [id number] Common 00:00:00 00:00:00 [facility] 2021-04-30 2021-04-30 Outpatient STLMLC STLMLC [id number] Common 00:00:00 00:00:00 [facility] 2021-04-05 2021-04-05 Outpatient STLMLC STLMLC [id number] Common 00:00:00 00:00:00 [facility] 2020-08-25 2020-08-25 Outpatient Pawan Baum [facility] REF BN02 [id number] [facility] 20:30:00 20:30:[address] [place] [address] 2020-08-11 2020-08-11 Orders [facility] 1.2.840.1 [id number] Methodi 00:00:00 00:00:00 Only my, 15045.1.1 4 [facility] 3.430.2.7 Hospi [facility] .3.182038 l .8 2020-05-02 2020-05-02 Out[facility] [id number] Common 17:59:00 17:59:[address] [facility] 2020-04-30 2020-04-30 Outpatient [facility] [id number] Common 13:40:00 13:40:[address] [facility] 2019-11-05 2019-11-05 [facility] [id number] Common 16:05:00 16:05:[address] [facility] 2019-08-21 2019-08-21 Outpatient [facility] [id number] Common 08:00:00 08:00:[address] [facility] 2019-07-22 2019-07-22 Outpatient [facility] [id number] Common 16:20:00 16:20:[address] [facility] 2019-01-07 2019-01-07 Outpatient [facility] [id number] Common 10:00:00 10:00:[address] [facility] 2018-12-27 2018-12-27 Outpatient [facility] [id number] Common 16:47:00 16:47:[address] [facility] Results Test Description Test Time Test Comments Results Result Comments Source SARS-COV-2(COVID19),NAAT 2022-03-08 00:00:00 Test Item Value Reference Range Interpretation Comme nts SARS-CoV-2 INTERPRETATION (test code = 75367-4) POSITIVE SEE NO TE A SOURCE (test code = 08852-7) NASOPHARYNGEAL CBC W/AUTO [id number] 07:30:00 Test Item Value Reference Range Interpretation [...] 0.08 x10 3/uL 0.0-0.20 N BASIC METABOLIC [id number] 05:09:00 Test Item Value Reference Range Interpretation [...] mg/dL 8.8-10.2 L = CA) BASIC METABOLIC [id number] 04:45:00 Test Item Value Reference Range Interpretation [...] code 8.4 mg/dL 8.8-10.2 L = CA) [id number] 04:45:00 Test Item Value Reference Range Interpretation Comments PHOSPHOROUS (test code = PHOS) 2.6 mg/dL 2.7-4.5 L [id number] 04:45:00 Test Item Value Reference Range Interpretation Comments MAGNESIUM (test code = MAG) 2.0 mg/dL 1.4-2.6 N CBC W/AUTO [id number] 04:26:00 Test Item Value Reference Range Interpretation [...] = BA#) 0.06 x10 3/uL 0.0-0.20 N [id number] 16:55:00 Test Item Value Reference Range Interpretation Comments GLUBED (test code = GLUBED) 89 MG/DL 70-105 N [id number] 12:41:00 Test Item Value Reference Range Interpretation Comments GLUBED (test code = GLUBED) 78 MG/DL 70-105 N - CT ABD PELVIS [id number] 12:29:00 [facility] 1975 Sex: MPatient Name: VALERI BENJAMIN Unit No: [id number] EXAMS: CPT CODE: [id number] CT ABD PELVIS W/CONT 93143 CT Abdomen and Pelvis with contrast. Location: [...] and signed by: Nikita Garcia MD Name: SOURAVVALERI [facility] Phys: Arleen Ramirez DO [address] : 1975 Age: 45 Sex: [place] [address] Loc: [id number] 1 Exam Date: 09/19/2020 Status: ADM IN PH: FAX: PAGE 1 Signed Report (CONTINUED) Patient Name: VALERI BENJAMIN Unit No: [id number] EXAMS: CPT CODE: [id number] CT ABD PELVIS W/CONT 95889 (Continued) CC: Arleen Araceli DO; Hanh Gordon DO; Dwayne Bennett MD Technologist: ADDISON Porras(R)(CT) CTDI: 13.01 DLP: 685 Trscr Dt/Tm: 09/19/2020 (1229) by:[email or web address] Printed Date/Time: 09/19/2020 (0175) Name: VALERI BENJAMIN [facility] Phys: Arleen Ramirez DO [address] : 1975 Age: 45 Sex: [place] [address] Loc: [id number] 1 Exam Date: 09/19/2020 Status: ADM IN PH: FAX: PAGE 2 Signed [id number] 08:24:00 Test Item Value Reference Range Interpretation Comments GLUBED (test code = GLUBED) 77 MG/DL 70-105 N CBC W/MANUAL [id number] 06:03:00 Test Item Value Reference Range Interpretation [...] code NORMAL NORMAL = PLTMORPH) BASIC METABOLIC [id number] 04:15:00 Test Item Value Reference Range Interpretation [...] code 8.5 mg/dL 8.8-10.2 L = CA) [id number] 04:15:00 Test Item Value Reference Range Interpretation Comments PHOSPHOROUS (test code = PHOS) 3.1 mg/dL 2.7-4.5 N [id number] 04:15:00 Test Item Value Reference Range Interpretation Comments MAGNESIUM (test code = MAG) 2.0 mg/dL 1.4-2.6 N CBC W/MANUAL [id number] 03:22:00 Test Item Value Reference Range Interpretation [...] code = LYMPH) % 20-40 CBC W/MANUAL [id number] 03:22:00 Test Item Value Reference Range Interpretation [...] code = LYMPH) % 20-40 BASIC METABOLIC [id number] 06:29:00 Test Item Value Reference Range Interpretation [...] code 8.4 mg/dL 8.8-10.2 L = CA) [id number] 06:29:00 Test Item Value Reference Range Interpretation Comments MAGNESIUM (test code = MAG) 2.1 mg/dL 1.4-2.6 N CBC W/AUTO [id number] 05:39:00 Test Item Value Reference Range Interpretation [...] BA#) 0.08 x10 3/uL 0.0-0.20 N SURGICAL [id number] 15:39:00 Test Item Value Reference Range Interpretation Comments SURGICAL SPECIMENS (test code = SURG) RUN DATE: 08/26/20 [facility] - LAB PAGE 1 RUN TIME: 1539 Specimen Inquiry RUN USER: INTERFACE PATIENT: VALERI BENJAMIN LOC: P.6S POD B U #: [id number] AGE/SX: 45/M ROOM: [facility] RE08/25/20REG DR: Pawan Baum MD : 73 BED: 1 DIS: STATUS: ADM IN TLOC: SPEC #: RECD: 08/25/20 STATUS: NIMA PHILLIPS #: [id number] MUSTAPHA: 08/25/[address]: Pawan Baum MD ENTERED: 08/25/20 SP TYPE: SURG OTHR DR: Boo Olsen MD, Na Ly DOORDERED: PATHGM5, PATH SPEC, H E STAIN HISTOLOGY: TISSUE ID BLK PCS DONNA LEV / PROCEDURE DISPOSITION ____ ___ ___ ___ ___ COLON SEG NTUMR A 5 1 TISSUES: A. COLON SEGMENTAL [id number] - Sigmoid Colon CLINICAL HISTORY Diverticulitis FINAL DIAGNOSIS SIGMOID COLON, RESECTION: -ACUTE DIVERTICULITIS WITH MICROSCOPIC PERFORATIONS AND ORGANIZING ABSCESS -ONE BENIGN LYMPH NODE -SEROSAL ADHESIONS -NO DYSPLASIA OR MALIGNANCY IS IDENTIFIED CPT 64602 GROSS DESCRIPTION Received in formalin labeled with [...] The bowel wall does not appear thickened. Proof Tester sections are submitted: A1-A2, bowel resection margins; A3, possible diverticulum with abscess; A4, possible diverticula; A5, remainder of colon, provider relations representative. CM/ta. Signed SIGNATURE ON FILE Sangita Arnett MD 08/26/20 1539 END OF REPORT CBC W/MANUAL [id number] 08:31:00 Test Item Value Reference Range Interpretation [...] code NORMAL NORMAL = PLTMORPH) BASIC METABOLIC [id number] 06:27:00 Test Item Value Reference Range Interpretation [...] code 8.9 mg/dL 8.8-10.2 N = CA) [id number] 06:27:00 Test Item Value Reference Range Interpretation Comments MAGNESIUM (test code = MAG) 2.1 mg/dL 1.4-2.6 N CBC W/MANUAL [id number] 06:21:00 Test Item Value Reference Range Interpretation [...] = LYMPH) % 20-40 Novel Coronavirus 2018 [id number] 11:11:00 Test Item Value Reference Range Interpretation Comments Novel Coronavirus Not Detected Not Detected Testing wa s performed 2019 Inhouse (test using the Aptima code = COVNONPUI) SARS-CoV-2 assay.This nucleic acid amplification t est was developed and itsperformance characteristics determined by Maria Isabel buckley. Nucleic acid amplification t ests include [...] shruthi gnosis of COVID-19 infect ion under hhyfvtv316(b)(1 ) of the Act, 21 U.S.C. 360bbb-3(b) [...] resul t in this assay.Performed At: [facility] [address] [id number] brooklyn Catalan MD Ph:[phone] COMPREHENSIVE METABOLIC [id number] 13:25:00 Test Item Value Reference Range Interpretation [...] 45-120 N PHOSPHATASE (test code = ALKP) [id number] 13:25:00 Test Item Value Reference Range Interpretation Comments PREALBUMIN (test code = PREALB) 27.6 MG/ML 15-42 N COMPREHENSIVE METABOLIC [id number] 11:55:00 Test Item Value Reference Range Interpretation [...] 45-120 N PHOSPHATASE (test code = ALKP) [id number] 11:55:00 Test Item Value Reference Range Interpretation Comments PREALBUMIN (test code = PREALB) MG/ML 15-42 CBC W/AUTO [id number] 09:26:00 Test Item Value Reference Range Interpretation [...] BA#) 0.10 x10 3/uL 0.0-0.20 N PROTHROMBIN [id number] 09:26:00 Test Item Value Reference Range Interpretation [...] 2.5-3.5recurren t systemic emboli sm. THROMBOPLASTIN TIME [id number] 09:26:00 Test Item Value Reference Range Interpretation Comments THROMBOPLASTIN TIME 27.8 SECONDS 23.8-34.8 N INTERPRE TATIVE PARTIAL (test code = DATA:Th erapeutic PTT) range: Unfractionated heparin:55 - 80 seconds Argatroban:1.5 to 3 times the basel ine PTT Notes Date/Time Note Provider Source 2020-09-18 14:29:00-00:00 [id number] [facility] [address] [place] [address] PATIENT NAME: VALERI BENJAMIN ADMIT DATE: 08/11 01/28 ACCOUNT NO: [id number] ROOM NO: P.0634 AGE: 45 REPORT TYPE: OPERATIVE REPORT SEX: [...] flexure takedown. COLORECTAL SURGEON: Pawan Baum MD. EGG BUYER: Galindo Canseco MD. ANESTHESIA: General endotracheal anesthesia. [...] laparoscopically. Primary anastomosis wa s achieved. Surgical airline pilot/first officer was present and was required to a ccomplish this procedure in a safe and minimally invasive fashion. He tolerated the pro cedure well without complications. PROCEDURE IN DETAIL: He was taken to the operating room and after induction of anesthesia, placed in modifi ed lithotomy position. He was prepped and draped in PATIENT NAME: VALERI BENJAMIN ACCOUNT #: [id number] sterile fashion. Laparoscopic access was gained with a 5-mm Optiview trocar. Three 8 mm ports were placed. He was placed in [facility]. The robot was docked. We began with [...] By: Pawan Baum MD WT: OP:PRAJNI/NIKKO/STEVE Conf#: [id number]/DID#: [id number] Authenticated by Pawan Baum MD On 09/21/2020 1 0:51:12 AM Electronically Signed by Pawan Baum MD on 09/11 10/01 at 1051 PATIENT NAME: VALERI BENJAMIN ACCOUNT #: [id number] 2020-08-19 08:27:00-00:00 [id number] [place] [address] PATIENT NAME: VALERI BENJAMIN ADMIT DATE: ACCOUNT NO: [id number] ROOM NO: AGE: 45 REPORT TYPE: eELECTROCARDIOGRAM SEX: M ADMITTING PHYSICIAN: Pawan Baum MD ATTENDING PHYSICIAN: Pawan Baum MD Order: [id number] Test Reason : PRE-OP Test Date/Time Stamp: MonAug 19 2020 08:27:28 Blood Pressure : / mmHG Vent. Rate : 067 BPM Atrial Rate : 067 BPM P-R Int : 158 ms QRS Dur : 092 ms QT Int : 432 ms P-R-T Axes : 049 003 029 degree s QTc Int : 456 ms Normal sinus rhythm Normal ECG No previous ECGs available Confirmed by WOODY ESPARZA MD ([id number]) on 08/19/20 7:27:23 PM Referred By: Pawan Baum Confirmed by:WOODY ESPARZA MD Electronically Signed by Woody Esparza MD on 05/31 at 1923 PATIENT NAME: VALERI BENJAMIN ACCOUNT #: [id number]
[2023-05-09 19:34] LABS: Specific Gravity 1.026 (1.005-1.030); Urine Bilirubin NEGATIVE (Negative); Urine Blood Negative (Negative); Urine Clarity Clear (Clear); Urine Color Light-Yellow (Yellow); Urine Glucose NEGATIVE (Negative); Urine Protein NEGATIVE (Negative); Urine Urobilinogen Normal (Normal); Urine pH 5.5 (5.0-7.0)
[2023-05-09 19:47] LABS: Absolute Lymphocytes (CBC) 3.8 K/uL (0.7-4.9); Hematocrit 42.9 % (39.6-49.0); MCV 89.7 fL (80-100); MPV 6.7 fL (7.6-11.3); Platelets 281 thou/uL (152-406); RBC Red Blood Cell Count 4.79 M/uL (4.33-5.43)
[2023-05-09 19:51] LABS: Albumin 4.2 g/dL (3.4-5.0); Bilirubin Total 0.4 mg/dL (0.2-1.0); Potassium 3.9 mEq/L (3.5-5.1)
[2023-05-09] MEDS ORDERED: NA CHLORIDE 0.9% 1,000 ML ONE (20:03)
--- NOTE | 2023-05-09 20:29 | RAD REPORT ---
EXAM DESCRIPTION: CTAbdomen Pelvis W Contrast - 05/09/2023 8:20 pm CLINICAL HISTORY: Abdominal pain. ABD PAIN COMPARISON: Abdomen Pelvis W Contrast dated 04/10/2023; Abdomen Pelvis W Contrast dated 11/03/2022 ; Abdomen Pelvis W Contrast dated 09/18/2020; Abdomen Pelvis W Contrast dated 07/30/2020 TECHNIQUE: Biphasic CT imaging of the abdomen and pelvis was performed with 100 ml non-ionic IV cont rast. All CT scans are performed using dose optimization technique as appropriate and may include automated exposure control or mA/KV adjustment according to patient size. FINDINGS: The lung bases are clear. The liver, spleen, pancreas, right adrenal gland and kidneys are within normal limits. 19 mm left adr enal mass is present, unchanged and statistically most likely an adenoma. No bowel obstruction, free air, free fluid or abscess. Small fat containing umbilical hernia. Mild si gmoid diverticulosis coli without diverticulitis. The appendix is normal. No evidence of significant lymphadenopathy. No suspicious bony findings. IMPRESSION: No acute intra-abdominal or pelvic finding.
--- NOTE | 2023-05-09 21:09 | ER ---
Nurse's Notes [facility] Name: Xiomara Haro Age: 48 yrs Sex: Male : 1975 Arrival Date: 05/09/2023 Time: 17:34 Bed 9 Private MD: Diagnosis: Flank pain Presentation: 05/09 17:55 Chief complaint: Patient states: abdominal pain X1 month. Pt denies vomiting and cm10 diarrhea. Pt also reports dizziness, has a history of vertigo. Coronavirus screen: Vaccine status: Patient reports being unvaccinated. Client denies travel out of the [place] in the last 14 days. Ebola Screen: Patient denies travel to an Ebola-affected area in the 21 days before illness onset. No symptoms or risks identified at this time. Initial Sepsis Screen: Does the patient meet any 2 criteria? No. Patient's initial sepsis screen is negative. Does the patient have a suspected source of infection? No. Patient's initial sepsis screen is negative. Risk Assessment: Do you want to hurt yourself or someone else? Patient reports no desire to harm self or others. Onset of symptoms was May 09, 2023. 17:55 Method Of Arrival: Ambulatory cm10 17:55 Acuity: DULCE 3 cm10 Historical: - Allergies: 17:57 apples; cm10 17:57 Eggs; cm10 17:57 Strawberries; cm10 17:57 Wheat/glutens; cm10 - PMHx: 17:57 Diverticulitis; Myocardial infarction; "stress induced"; cm10 - PSHx: 17:57 colon resection; Hernia repair x 4; cm10 - Immunization history:: Adult Immunizations unknown. - Social history:: Smoking status: unknown. Screenin:00 [facility] ED Fall Risk Assessment (Adult) History of falling in the last 3 months, ha1 including since admission No falls in past 3 months (0 pts) Confusion or Disorientation No (0 pts) Intoxicated or Sedated No (0 pts) Impaired Gait No (0 pts) Mobility Assist Device Used No (0 pt) Altered Elimination No (0 pt) Score/Fall Risk Level 0 - 2 = Low Risk. 20:28 Abuse screen: Denies threats or abuse. Denies injuries from another. Nutritional ha1 screening: No deficits noted. Tuberculosis screening: No symptoms or risk factors identified. Assessment: 20:00 General: Appears comfortable, Behavior is calm, cooperative. Pain: Complains of pain in ha1 right upper quadrant radiates to the back. 20:00 Neuro: Level of Consciousness is awake, alert, obeys commands, Oriented to person, ha1 place, time, situation. Neuro: Reports dizziness. Cardiovascular: Patient's skin is warm and dry. Respiratory: Airway is patent Respiratory effort is even, unlabored, Respiratory pattern is regular, symmetrical. GI: Abdomen is flat, non-distended, Bowel sounds present X 4 quads. : Reports history of kidney stones. states " it feels like I am passing one". Musculoskeletal: Circulation, motion, and sensation intact. 21:00 Reassessment: Patient and/or family updated on plan of care and expected duration. Pain ha1 level reassessed. Patient is alert, oriented x 3, equal unlabored respirations, skin warm/dry/pink. Vital Signs: 17:55 BP 101 / 86; Pulse 82; Resp 16; Temp 98.2; Pulse Ox 100% ; Weight 85.28 kg; Height 5 cm10 ft. 10 in. ; Pain 8/10; 20:00 BP 122 / 87; Pulse 74; Resp 16 S; Pulse Ox 100% on R/A; ha1 21:00 BP 128 / 90; Pulse 71; Resp 17 S; Pulse Ox 100% on R/A; ha1 17:55 Body Mass Index 26.97 (85.28 kg, 177.8 cm) cm10 17:55 Pain Scale: Adult cm10 ED Course: 17:38 Patient arrived in ED. kj1 17:46 Sheila Bello FNP-C is [facility]. kb 17:46 Bri Kellogg MD is Attending Physician. kb 17:57 Triage completed. cm10 17:57 Arm band placed on Patient placed in waiting room. cm10 19:45 Patient has correct armband on for positive identification. Placed in gown. Bed in low ha1 position. Call light in reach. Side rails up X 1. Adult w/ patient. 19:45 Inserted saline lock: 22 gauge in left antecubital area, using aseptic technique. Blood ha1 collected. 19:48 Diana Flores RN is Primary Nurse. ha1 19:48 CBC with Diff Sent. ha1 19:48 CMP Sent. ha1 19:48 Lipase Sent. ha1 20:21 CT Abd/Pelvis - IV Contrast Only In Process Unspecified. EDMS 21:18 No provider procedures requiring assistance completed. IV discontinued, intact, ha1 bleeding controlled, No redness/swelling at site. Pressure dressing applied. 21:19 Provided Education on: follow ups. ha1 Administered Medications: 19:56 Drug: NS 0.9% IV 1000 ml Route: IV; Rate: 1 bolus; Site: left antecubital; ha1 21:20 Follow up: Response: No adverse reaction; IV Status: Completed infusion; IV Intake: ha1 1000ml Medication: 20:28 VIS not applicable for this client. ha1 Intake: 21:20 IV: 1000ml; Total: 1000ml. ha1 Outcome: 21:08 Discharge ordered by . ed 21:18 Discharged to home ambulatory, with family. ha1 21:18 Condition: stable 21:18 Discharge instructions given to patient, Instructed on discharge instructions, follow up and referral plans. Demonstrated understanding of instructions, follow-up care. 21:20 Patient left the ED. ha1 Signatures: Dispatcher [employer] EDMS Sheila Bello, ART OBJECTS SALESPERSON-C ART OBJECTS SALESPERSON-Lena Velazquez kj1 Diana Flores, RN RN ha1 Genevieve Schmitt, RN RN cm10
--- NOTE | 2023-05-09 21:09 | EDPHYS ---
Physician Documentation [facility] Name: Xiomara Haro Age: 48 yrs Sex: Male : 1975 Arrival Date: 05/09/2023 Time: 17:34 Bed 9 Private MD: ED Physician Bri Kellogg HPI: 05/09 21:22 This 48 yrs old Male presents to ER via Ambulatory with complaints of Flank Pain, kb Dizziness. 21:22 The patient complains of pain in the right flank. The pain radiates to the right lower kb quadrant. Onset: The symptoms/episode began/occurred 1 month(s) ago. Modifying factors: The symptoms are alleviated by nothing. the symptoms are aggravated by nothing. Associated signs and symptoms: Pertinent positives: nausea, vomiting, Pertinent negatives: diarrhea, fever. Severity of pain: At its worst the pain was moderate in the emergency department the pain is unchanged. The patient has not experienced similar symptoms in the past. The patient has not recently seen a physician. Pt reports pain to right flank and abd that started one month ago. States he was seen for this here about 3 weeks ago and came back because the pain has gotten worse. Historical: - Allergies: 17:57 apples; cm10 17:57 Eggs; cm10 17:57 Strawberries; cm10 17:57 Wheat/glutens; cm10 - PMHx: 17:57 Diverticulitis; Myocardial infarction; "stress induced"; cm10 - PSHx: 17:57 colon resection; Hernia repair x 4; cm10 - Immunization history:: Adult Immunizations unknown. - Social history:: Smoking status: unknown. ROS: 21:21 Constitutional: Negative for fever, chills, and weight loss. kb 21:21 Abdomen/GI: Positive for abdominal pain, nausea and vomiting, constipation. 21:21 Back: Positive for flank pain. 21:21 All other systems are negative. Exam: 21:21 Constitutional: This is a well developed, well nourished patient who is awake, alert, kb and in no acute distress. Head/Face: Normocephalic, atraumatic. ENT: Moist Mucous membranes Cardiovascular: Regular rate and rhythm with a normal S1 and S2. No gallops, murmurs, or rubs. No pulse deficits. Respiratory: Respirations even and unlabored. No increased work of breathing. Talking in full sentences Abdomen/GI: Soft, non-tender. No distention Skin: Warm, dry with normal turgor. Normal color. MS/ Extremity: Pulses equal, no cyanosis. Neurovascular intact. Full, normal range of motion. Neuro: Awake and alert, GCS 15, oriented to person, place, time, and situation. Moves all extremities. Normal gait. Vital Signs: 17:55 BP 101 / 86; Pulse 82; Resp 16; Temp 98.2; Pulse Ox 100% ; Weight 85.28 kg; Height 5 cm10 ft. 10 in. ; Pain 8/10; 20:00 BP 122 / 87; Pulse 74; Resp 16 S; Pulse Ox 100% on R/A; ha1 21:00 BP 128 / 90; Pulse 71; Resp 17 S; Pulse Ox 100% on R/A; ha1 17:55 Body Mass Index 26.97 (85.28 kg, 177.8 cm) cm10 17:55 Pain Scale: Adult cm10 MDM: 17:46 Patient medically screened. kb 21:21 Differential diagnosis: nephrolithiasis, UTI, diverticulitis, pancreatitis, kb obstruction, appendicitis. Data reviewed: vital signs, nurses notes. Counseling: I had a detailed discussion with the patient and/or guardian regarding the historical points, exam findings, and any diagnostic results supporting the discharge/admit diagnosis, lab results, radiology results, the need for outpatient follow up, a family practitioner, a maintenance operator, to return to the emergency department if symptoms worsen or persist or if there are any questions or concerns that arise at home. ED course: Pt has GI appt on 05/18 to evaluate this pain. 05/09 17:55 Order name: CBC with Diff; Complete Time: 20:09 kb 05/09 17:55 Order name: CMP; Complete Time: 20:01 kb 05/09 17:55 Order name: Lipase; Complete Time: 20:01 kb 05/09 17:55 Order name: Urinalysis w/ reflexes; Complete Time: 19:50 kb 05/09 17:55 Order name: CT Abd/Pelvis - IV Contrast Only; Complete Time: 20:36 kb 05/09 17:55 Order name: IV Saline Lock; Complete Time: 19:48 kb 05/09 17:55 Order name: Labs collected and sent; Complete Time: 19:48 kb Administered Medications: 19:56 Drug: NS 0.9% IV 1000 ml Route: IV; Rate: 1 bolus; Site: left antecubital; ha1 21:20 Follow up: Response: No adverse reaction; IV Status: Completed infusion; IV Intake: ha1 1000ml Disposition Summary: 05/09/23 21:08 Discharge Ordered Location: Home kb Condition: Stable kb Diagnosis - Flank pain kb Followup: kb - With: Emergency Department - When: As needed - Reason: Worsening of condition Followup: kb - With: Private Physician - When: 2 - 3 days - Reason: Recheck today's complaints, Continuance of care, Re-evaluation by your physician Discharge Instructions: - Discharge Summary Sheet kb - Flank Pain, Adult, [id number] kb Forms: - Medication Reconciliation Form kb - Thank You Letter kb - Antibiotic Education kb - Prescription Opioid Use kb - Patient Portal Instructions kb - Leadership Thank You Letter kb Signatures: Dispatcher [employer] EDSheila [place], VIANEY-C EMPLOYEE RELATIONS DIRECTOR-Diana Anderson RN RN ha1 Genevieve Schmitt RN RN cm10 Corrections: (The following items were deleted from the chart) 21:22 21:21 Abdomen/GI: Positive for abdominal pain, nausea, diarrhea, kb kb
[2023-05-09 22:28] VITALS: TEMP 98.2; O2SAT 100
[2023-05-09 22:38] VITALS: BP 128/90
== END 2023-05-09 21:20 | disposition home or self-care (01) ==
LOC: ER 17:34
DX: R10.9 Unspecified abdominal pain (principal); Z91.012 Allergy to eggs; Z91.018 Allergy to other foods
CPT/HCPCS: 85025; 36415; 81003; 83690; 80053; 74177; Q9967; J7030

== ENCOUNTER 2024-12-01 05:33 | Emergency (ER) | payer OTHER ==
[2024-12-01] MEDS ORDERED: NA CHLORIDE 0.9% 1,000 ML ONE (06:19)
[2024-12-01] MEDS ORDERED: ONDANSETRON 4 MG/2 ML VIAL ONE (06:19)
[2024-12-01] MEDS ORDERED: MORPHINE 4 MG/ML SYR ONE (06:19)
[2024-12-01 06:25] LABS: Absolute Basophils 0.1 K/uL (0-0.5); Absolute Eosinophils 0.3 K/uL (0-0.5); Absolute Lymphocytes (CBC) 2.9 K/uL (0.7-4.9); Absolute Monocytes 0.7 K/uL (0.1-1.3); Absolute Neutrophil 4.1 K/uL (1.8-8.0); Basophils % 1.4 % (0-1.3); Eosinophils % 3.1 % (0-4.4); Hematocrit 42.4 % (39.6-49.0); Hemoglobin 14.5 g/dL (13.6-17.9); Lymphocytes % 35.5 % (15.3-44.8); MCH 30.2 pg (27.0-35.0); MCHC 34.2 g/dL (32.0-36.0); MCV 88.3 fL (80-100); MPV 6.8 fL (7.6-11.3); Monocytes % 8.8 % (3.3-12.3); Neutrophils % 51.2 % (41.7-73.7); Platelets 272 thou/uL (152-406)
[2024-12-01 06:29] LABS: Sqamous Epithelial None Seen /HPF (None Seen); Urine Bacteria None Seen /HPF (<20); Urine Culture Reflex Order NOT NEEDED; Urine Mucus 2+ /HPF (None Seen); Urine RBC >50 /HPF (None Seen); Urine WBC <5 /HPF (<5)
[2024-12-01 06:30] LABS: Urine Bilirubin NEGATIVE (Negative); Urine Blood 3+ (OVER) (Negative); Urine Clarity Extremely Turbid (Clear); Urine Color Light-Orange (Yellow); Urine Glucose NEGATIVE (Negative); Urine Ketones NEGATIVE (Negative); Urine Micro Reflex YN NO BILL NO MICROSCOPIC; Urine Nitrite NEGATIVE (Negative); Urine Protein 1+ (Negative); Urine Urobilinogen Normal (Normal); Urine pH 5.5 (5.0-7.0)
[2024-12-01 06:36] LABS: Albumin 3.7 g/dL (3.4-5.0); Albumin/Globulin Ratio 0.9 (1.1-1.8); Anion Gap 7.3 mEq/L (5.0-15.0); Bilirubin Total 0.5 mg/dL (0.2-1.0); Potassium 4.3 mEq/L (3.5-5.1); Protein, Total 7.7 g/dL (6.4-8.2)
[2024-12-01] MEDS ORDERED: KETOROLAC 30 MG/ML INJ ONE (07:02)
--- NOTE | 2024-12-01 08:25 | RAD REPORT ---
EXAMINATION: CT Abdomen Pelvis W Contrast CLINICAL INDICATION: Male, 49 years old. ABD PAIN TECHNIQUE: CT abdomen and pelvis was performed, after the administration of IV contrast, as per [facility] protocol. Axial, sagittal and coronal reconstructions were obtained. One or more of the following dose reduction techniques were used: Automated exposure control, adjustment of the mA and k V according to patient size, and iterative reconstruction. Unless otherwise specified, incidental findings do not require dedicated imaging follow-up. COMPARISON: 05/23/2023 FINDINGS: LOWER CHEST: The visualized lung bases are clear apart from platelike atelectatic changes. LIVER: Mild fatty liver is present. No focal lesion or biliary dilataion is seen. BILIARY SYSTEM: No suspicious abnormalities. SPLEEN: Normal size. No focal lesion. PANCREAS: No mass, ductal dilation, or jono-pancreatic fluid. ADRENALS: Stable ovoid 2 cm left adrenal nodule. KIDNEYS: Normal size and contour. Moderate right proptosis. 4 mm calculus along the right proximal ur eter. URINARY BLADDER: Unremarkable. GASTROINTESTINAL TRACT: No evidence of free air, significant intra-abdominal free fluid, bowel obstru ction or abscess. APPENDIX: Normal appendix. LYMPH NODES: No lymphadenopathy. MUSCULOSKELETAL: No acute or suspicious osseous abnormality. ADDITIONAL FINDINGS: None. IMPRESSION: Moderate right hydroureteronephrosis with 4 mm obstructing right proximal ureteral calculus. Diffuse hepatic steatosis. Stable left adrenal 2 cm nodule.
--- NOTE | 2024-12-01 08:36 | EDPHYS ---
Physician Documentation [facility] Name: Xiomara Haro Age: 49 yrs Sex: Male : 1975 Arrival Date: 12/01/2024 Time: 05:33 Bed 5 Private MD: ED Physician Bri Kellogg HPI: 12/01 06:44 This 49 yrs old Male presents to ER via Ambulatory with complaints of RT QUAD sp4 ABD PAIN, Nausea. 06:51 49-year-old male with history of kidney stones presents with right flank pain acute sp4 onset this morning. Patient reported dark urine. Historical: - Allergies: 05:51 apples; br2 05:51 Eggs; br2 05:51 Strawberries; br2 05:51 Wheat/glutens; br2 - PMHx: 07:10 Diverticulitis; Myocardial infarction; aa5 - PSHx: 07:10 colon resection; aa5 - Immunization history:: Adult Immunizations up to date. - Infectious Disease History:: Denies. - Social history:: Smoking status: Patient/guardian denies using tobacco, Patient uses alcohol, but reports only rare drinking. Patient/guardian denies using street drugs. - Family history:: not pertinent. ROS: 06:51 Constitutional: Negative for fever, chills, and weight loss, positive right flank sp4 pain, positive bloody urine 06:51 All other systems are negative, Exam: 06:51 Constitutional: This is a well developed, well nourished patient who is awake, alert, sp4 and in no acute distress. Head/Face: Normocephalic, atraumatic. Eyes: Pupils equal round and reactive to light, extra-ocular motions intact. Lids and lashes normal. Conjunctiva and sclera are not injected. Cornea within normal limits. Periorbital areas with no swelling, redness, or edema. ENT: Nares patent. No nasal discharge, no septal abnormalities noted. Tympanic membranes are normal and external auditory canals are clear. Oropharynx with no redness, swelling, or masses, exudates, or evidence of obstruction, uvula midline. Mucous membranes moist. Neck: Trachea midline, no thyromegaly or masses palpated, and no cervical lymphadenopathy. Supple, full range of motion without nuchal rigidity, or vertebral point tenderness. Chest/axilla: Normal chest wall appearance and motion. Nontender with no deformity. No lesions are appreciated. Cardiovascular: Regular rate and rhythm with a normal S1 and S2. No gallops, murmurs, or rubs. Normal PMI, no JVD. No pulse deficits. Respiratory: Lungs have equal breath sounds bilaterally, clear to auscultation and percussion. No rales, rhonchi or wheezes noted. No increased work of breathing, no retractions or nasal flaring. Abdomen/GI: Soft, with normal bowel sounds. No distension or tympany. No guarding or rebound. Positive right abdominal tenderness upper and lower abdomen. No signs of peritonitis Back: No spinal tenderness. No costovertebral tenderness. Skin: Warm, dry with normal turgor. Normal color with no rashes, no lesions, and no evidence of cellulitis. MS/ Extremity: Pulses equal, no cyanosis. Neurovascular intact. Full, normal range of motion. Neuro: Awake and alert, GCS 15, oriented to person, place, time, and situation. Cranial nerves II-XII grossly intact. Motor strength 5/5 in all extremities. Sensory grossly intact. Psych: Awake, alert, with orientation to person, place and time. Behavior, mood, and affect are within normal limits Vital Signs: 05:49 BP 138 / 106; Pulse 68; Resp 18; Temp 97.4; Pulse Ox 100% on R/A; Weight 83.01 kg; br2 Height 5 ft. 10 in. ; Pain 8/10; 06:50 BP 137 / 92; Pulse 66; Resp 17 S; Pulse Ox 99% on R/A; ha1 05:49 Body Mass Index 26.26 (83.01 kg, 177.8 cm) br2 05:49 Pain Scale: Adult br2 [place] Coma Score: 06:51 Eye Response: spontaneous(4). Motor Response: obeys commands(6). Verbal Response: sp4 oriented(5). Total: 15. MDM: 07:00 Differential diagnosis: Nonspecific abd pain, gastritis, cholecystitis, pancreatitis, sp4 diverticulitis, viral gastroenteritis, gastroenteritis. Data reviewed: vital signs, nurses notes, old medical records, lab test result(s), radiologic studies, CT scan. Transition of care: After a detail discussion of the patient's case, care is transferred to Bri Kellogg MD. 07:12 Medical Screening Exam initiated sp3 07:36 ED course: Patient taken over by me from nighttime physician. Patient is a 49-year-old sp3 male with no significant past medical history presents with right sided flank and abdominal pain and visualized hematuria. Differential diagnosis includes ureterolithiasis/kidney stone spectrum, UTI/pyelonephritis spectrum, among others. Workup ordered by night physician includes CT scan of the abdomen pelvis, general labs, UA and pain control. I will follow-up on all of the studies and disposition accordingly. Currently vital signs are normal and patient just received medication approximate 15 minutes ago and does not feel like he needs further medication at this time. He is resting comfortably in no acute distress.. 08:33 ED course: Patient with 4 mm stone in the proximal right ureter with moderate hydro-. sp3 Pain is currently controlled. I have discussed the location of the stone as well as distances still needs to traverse as well as the risks of moderate hydronephrosis. We will monitor symptoms closely and if they are not resolving patient understands to return here or had to the [facility] where urology coverage is present. We will send him home on diclofenac, tramadol and Flomax with urology follow-up.. 12/01 05:54 Order name: Urinalysis W/Microscopic; Complete Time: 06:44 br2 12/01 05:55 Order name: CBC with Diff; Complete Time: 06:44 br2 12/01 05:55 Order name: CMP; Complete Time: 06:44 br2 12/01 05:55 Order name: Lipase; Complete Time: 06:44 br2 12/01 06:13 Order name: CT Abd/Pelvis - IV Contrast Only; Complete Time: 08:26 sp4 12/01 05:55 Order name: IV Saline Lock; Complete Time: 06:14 br2 12/01 05:55 Order name: Labs collected and sent; Complete Time: 06:14 br2 Administered Medications: 06:23 Drug: NS 0.9% IV 1000 ml IV at 1 bolus Per protocol; to be given as a bolus over 60 br2 minutes Route: IV; Rate: 1 bolus; Site: right antecubital; 07:23 Follow up: IV Status: Completed infusion; IV Intake: 1000ml aa5 06:23 Drug: morphine IVP or IV 4 mg IVP once over 4 mins Route: IVP; Infused Over: 4 mins; br2 Site: right antecubital; 07:20 Follow up: Response: No adverse reaction aa5 06:23 Drug: Ondansetron IVP 4 mg IVP once; over 2 minutes Route: IVP; Site: right antecubital;br2 07:20 Follow up: Response: No adverse reaction aa5 07:03 Drug: Ketorolac IVP 30 mg IVP once Route: IVP; Site: right antecubital; jj7 07:20 Follow up: Response: No adverse reaction aa5 Disposition Summary: 12/01/24 08:35 Discharge Ordered Notes: Location: Home sp3 Condition: Stable sp3 Diagnosis - Right ureterolithiasis, kidney stone and hydronephrosis sp3 Followup: sp3 - With: Leo Gaviria MD - When: Upon discharge from the Emergency Department - Reason: Recheck today's complaints Discharge Instructions: - Discharge Summary Sheet sp3 - Kidney Stones sp3 - Dietary Guidelines to Help Prevent Kidney Stones sp3 Forms: - Medication Reconciliation Form sp3 - Antibiotic Education sp3 - Prescription Opioid Use sp3 - Patient Portal Instructions sp3 - Leadership Thank You Letter sp3 Prescriptions: - Flomax 0.4 mg Oral capsule - take 1 capsule ORAL route every 24 hours; 5 capsule; Refills: 0, Product sp3 Selection Permitted - Diclofenac Sodium 75 mg Oral Tablet Sustained Release - take 1 tablet ORAL route 2 times per day; 30 tablet; Refills: 0, Product sp3 Selection Permitted - Tramadol 50 mg Oral Tablet - take 1 tablet ORAL route every 8 hours as needed; 12 tablet; Refills: 0, sp3 Product Selection Permitted Signatures: Dispatcher [employer] EDMS Amina Perkins, RN RN aa5 Bri Kellogg MD MD sp3 Efrain Gamez RN RN jj7 Carlos Menendez MD MD sp4 Fernanda Cleary RN RN br2 Corrections: (The following items were deleted from the chart) 05:55 05:55 CBC+H.LAB.BRZ ordered. EDMS EDMS 05:55 05:55 COMPREHENSIVE METABOLIC PANEL+C.LAB.BRZ ordered. EDMS EDMS 05:55 05:55 LIPASE+C.LAB.BRZ ordered. EDMS EDMS
--- NOTE | 2024-12-01 08:36 | ER ---
Nurse's Notes [facility] Name: Xiomara Haro Age: 49 yrs Sex: Male : 1975 Arrival Date: 12/01/2024 Time: 05:33 Bed 5 Private MD: Diagnosis: Right ureterolithiasis, kidney stone and hydronephrosis Presentation: 12/01 05:49 Chief complaint: Patient states: C/O RIGHT SIDE PAINND NAUSEA.....DOES NOT RADIATE TO br2 FLANK OR ABDOMEN. Coronavirus screen: Client denies travel out of the [place] in the last 14 days. Ebola Screen: Patient denies exposure to infectious person. Initial Sepsis Screen: Does the patient meet any 2 criteria? No. Patient's initial sepsis screen is negative. Does the patient have a suspected source of infection? No. Patient's initial sepsis screen is negative. Risk Assessment: Do you want to hurt yourself or someone else? Patient reports no desire to harm self or others. Onset of symptoms was December 01, 2024 at 04:30. 05:49 Method Of Arrival: Ambulatory br2 05:49 Acuity: DULCE 3 br2 Triage Assessment: 05:52 General: Appears uncomfortable, Behavior is calm, cooperative. Pain: Complains of pain br2 in anterior aspect of right lateral abdomen Pain does not radiate. Pain currently is 8 out of 10 on a pain scale. EENT: No signs and/or symptoms were reported regarding the EENT system. Neuro: [place] Agitation-Sedation Scale (RASS): 0 - Alert and Calm Level of Consciousness is awake, alert, obeys commands, Oriented to person, place, time, situation. Cardiovascular: Capillary refill < 3 seconds. Respiratory: Airway is patent Respiratory effort is even, unlabored, Respiratory pattern is regular, symmetrical. GI: Abdomen is flat, Reports nausea, Patient currently denies vomiting. : Denies burning with urination, urinary frequency, urgency. Derm: No signs and/or symptoms reported regarding the dermatologic system. Musculoskeletal: Capillary refill < 3 seconds, Range of motion: intact in all extremities. Historical: - Allergies: 05:51 apples; br2 05:51 Eggs; br2 05:51 Strawberries; br2 05:51 Wheat/glutens; br2 - PMHx: 07:10 Diverticulitis; Myocardial infarction; aa5 - PSHx: 07:10 colon resection; aa5 - Immunization history:: Adult Immunizations up to date. - Infectious Disease History:: Denies. - Social history:: Smoking status: Patient/guardian denies using tobacco, Patient uses alcohol, but reports only rare drinking. Patient/guardian denies using street drugs. - Family history:: not pertinent. Screenin:05 [facility] ED Fall Risk Assessment (Adult) History of falling in the last 3 months, ha1 including since admission No falls in past 3 months (0 pts) Confusion or Disorientation No (0 pts) Intoxicated or Sedated No (0 pts) Impaired Gait No (0 pts) Mobility Assist Device Used No (0 pt) Altered Elimination No (0 pt) Score/Fall Risk Level 0 - 2 = Low Risk Oriented to surroundings, Maintained a safe environment, Educated pt \T\ family on fall prevention, incl call for assistance when getting out of bed, Hourly rounding (assess needs \T\ fall precautionary measures) done. Abuse screen: Denies threats or abuse. Denies injuries from another. Nutritional screening: No deficits noted. Tuberculosis screening: No symptoms or risk factors identified. Assessment: 06:23 Reassessment: SEE TRIAGE ASSESSMENT. GI: Abdomen is flat, Reports RIGHT SIDE PAIN. br2 07:35 Reassessment: Patient is alert, oriented x 3, equal unlabored respirations, skin aa5 warm/dry/pink. Pt to CT . 08:50 Reassessment: Patient is alert, oriented x 3, equal unlabored respirations, skin aa5 warm/dry/pink. Vital Signs: 05:49 BP 138 / 106; Pulse 68; Resp 18; Temp 97.4; Pulse Ox 100% on R/A; Weight 83.01 kg; br2 Height 5 ft. 10 in. ; Pain 8/10; 06:50 BP 137 / 92; Pulse 66; Resp 17 S; Pulse Ox 99% on R/A; ha1 05:49 Body Mass Index 26.26 (83.01 kg, 177.8 cm) br2 05:49 Pain Scale: Adult br2 [place] Coma Score: 06:51 Eye Response: spontaneous(4). Motor Response: obeys commands(6). Verbal Response: sp4 oriented(5). Total: 15. ED Course: 05:36 Patient arrived in ED. jj6 05:41 Patient has correct armband on for positive identification. Bed in low position. Call ha1 light in reach. Side rails up X 1. 05:49 Fernanda Cleary, BITA is Primary Nurse. br2 05:51 Triage completed. br2 05:52 Arm band placed on. br2 06:14 CBC with Diff Sent. br2 06:15 CMP Sent. br2 06:15 Lipase Sent. br2 06:15 Urinalysis W/Microscopic Sent. br2 06:23 Inserted saline lock: 20 gauge in right antecubital area, using aseptic technique. br2 Blood collected. Flushed with 10 mL NS. 06:44 Carlos Menendez MD is Attending Physician. sp4 07:05 Attending Physician role handed off by Carlos Menendez MD sp3 07:05 Bri Kellogg MD is Attending Physician. sp3 07:10 Report given to AMINA SUNSHINE. jj7 07:50 CT Abd/Pelvis - IV Contrast Only In Process Unspecified. EDMS 08:34 Leo Gaviria MD is Referral Physician. sp3 08:50 No provider procedures requiring assistance completed. IV discontinued, intact, aa5 bleeding controlled, No redness/swelling at site. Pressure dressing applied. Administered Medications: 06:23 Drug: NS 0.9% IV 1000 ml IV at 1 bolus Per protocol; to be given as a bolus over 60 br2 minutes Route: IV; Rate: 1 bolus; Site: right antecubital; 07:23 Follow up: IV Status: Completed infusion; IV Intake: 1000ml aa5 06:23 Drug: morphine IVP or IV 4 mg IVP once over 4 mins Route: IVP; Infused Over: 4 mins; br2 Site: right antecubital; 07:20 Follow up: Response: No adverse reaction aa5 06:23 Drug: Ondansetron IVP 4 mg IVP once; over 2 minutes Route: IVP; Site: right antecubital;br2 07:20 Follow up: Response: No adverse reaction aa5 07:03 Drug: Ketorolac IVP 30 mg IVP once Route: IVP; Site: right antecubital; jj7 07:20 Follow up: Response: No adverse reaction aa5 Medication: 08:50 VIS not applicable for this client. aa5 Intake: 07:23 IV: 1000ml; Total: 1000ml. aa5 Outcome: 08:35 Discharge ordered by . sp3 08:52 Discharged to home ambulatory, aa5 08:52 Condition: stable 08:52 Discharge instructions given to patient, Instructed on discharge instructions, follow up and referral plans. medication usage, Demonstrated understanding of instructions, follow-up care, medications, Prescriptions given X 3, 08:53 Patient left the ED. aa5 Signatures: Dispatcher [employer] EDMS Amina Perkins, RN RN aa5 Bri Kellogg MD MD sp3 Karina Green jj6 Diana Flores RN RN ha1 Efrain Gamez RN RN jj7 Carlos Menendez MD MD sp4 Fernanda Cleary RN RN br2
[2024-12-01 09:08] VITALS: TEMP 97.4
[2024-12-01 09:13] VITALS: BP 137/92; O2SAT 99
== END 2024-12-01 08:53 | disposition home or self-care (01) ==
LOC: ER 05:33
DX: N13.2 Hydronephrosis with renal and ureteral calculous obstruction (principal); Z87.442 Personal history of urinary calculi
CPT/HCPCS: 96361; 85025; 81001; 36415; 83690; 80053; 74177; 96375; 96374; 99284; Q9967; J2405; J7030

== ENCOUNTER 2025-04-22 16:58 | Emergency (ER) | payer OTHER ==
[2025-04-22] MEDS ORDERED: NA CHLORIDE 0.9% 1,000 ML ONE (18:11)
[2025-04-22] MEDS ORDERED: KETOROLAC 30 MG/ML INJ ONE (18:11)
[2025-04-22 18:23] LABS: Absolute Lymphocytes (CBC) 3.6 K/uL (0.7-4.9); Hematocrit 43.2 % (39.6-49.0); Hemoglobin 14.9 g/dL (13.6-17.9); MCH 30.0 pg (27.0-35.0); MCHC 34.4 g/dL (32.0-36.0); MCV 87.4 fL (80-100); MPV 6.5 fL (7.6-11.3); Nucleated RBC Absolute Count 0.0 (0-0); Nucleated Red Blood Cells % 0.2 % (0-0); RBC Red Blood Cell Count 4.95 M/uL (4.33-5.43); White Blood Count 10.50 thou/uL (4.3-10.9)
[2025-04-22 18:40] LABS: ALT/SGPT 37.0 U/L (16-61); AST/SGOT 14.0 U/L (15-37); Albumin 4.0 g/dL (3.4-5.0); Albumin/Globulin Ratio 1.0 (1.1-1.8); Alkaline Phosphatase 79.0 U/L (45-117); Anion Gap 8.2 mEq/L (5.0-15.0); BUN Blood Urea Nitrogen 18.0 mg/dL (7-18); Globulin 4.1 g/dL (2.3-3.5); Glucose Level 91.0 mg/dL (74-106); Lipase 46.0 U/L (13-75); Potassium 4.2 mEq/L (3.5-5.1)
--- NOTE | 2025-04-22 19:07 | RAD REPORT ---
EXAMINATION: US Abdomen Exam Limited CLINICAL HISTORY: HS MAIN N RUQ;Abd pain Bed Name: 12 COMPARISON: None. TECHNIQUE: Limited upper abdominal grayscale and color flow sonographic images. FINDINGS: Gallbladder: Normal wall thickness. No pericholecystic fluid. No gallstones. Mild echogenicity along the wall, nonspecific and could relate to mild demineralization. Negative sonographic Dawn sign. Bile ducts: No intrahepatic or extrahepatic biliary dilatation. Common bile duct measures 2 mm. Liver: Visualized portions of the liver demonstrate normal echogenicity with no suspicious findings. Fluid: No ascites. IMPRESSION: No abnormalities on right upper quadrant ultrasound.
--- NOTE | 2025-04-22 19:34 | RAD REPORT ---
EXAMINATION: CT Abdomen Pelvis W Contrast CLINICAL INDICATION: Male, 50 years old. FLANK PAIN TECHNIQUE: CT abdomen and pelvis was performed, after the administration of IV contrast, as per [facility] protocol. Axial, sagittal and coronal reconstructions were obtained. One or more of the following dose reduction techniques were used: Automated exposure control, adjustment of the mA and k V according to patient size, and iterative reconstruction. Unless otherwise specified, incidental findings do not require dedicated imaging follow-up. COMPARISON: 12/01/2024. FINDINGS: LOWER CHEST: The visualized lung bases are clear. LIVER: Normal in size and contour. No focal lesion. BILIARY SYSTEM: No suspicious abnormalities. SPLEEN: Normal size. No focal lesion. PANCREAS: No mass, ductal dilation, or jono-pancreatic fluid. ADRENALS: Stable 2 cm left adrenal nodule. KIDNEYS: Normal size and contour. No hydronephrosis. URINARY BLADDER: Unremarkable. GASTROINTESTINAL TRACT: No evidence of free air, significant intra-abdominal free fluid, bowel obstru ction or abscess. Mild distal colonic diverticulosis without evidence of acute diverticulitis. APPENDIX: Normal appendix. LYMPH NODES: No lymphadenopathy. MUSCULOSKELETAL: No acute or suspicious osseous abnormality. ADDITIONAL FINDINGS: Prostatomegaly. Small umbilical and supraumbilical hernias containing fat, large st measuring 1.4 cm IMPRESSION: No acute or concerning abnormalities seen in the abdomen or pelvis. Incidental findings as above.
[2025-04-22 19:59] LABS: Urine Microscopic Reflex YN NO UMIC
--- NOTE | 2025-04-22 20:29 | ER ---
Nurse's Notes [facility] Name: Xiomara Haro Age: 50 yrs Sex: Male : 1975 Arrival Date: 04/22/2025 Time: 16:58 Bed 12 Private MD: Diagnosis: Abdominal pain, Generalized;Acute right lower quadrant abdominal pain Presentation: 04/22 17:08 Chief complaint: Sore throat and RLQ pain x 10 days. Coronavirus screen: At this time, hb the client does not indicate any symptoms associated with coronavirus-19. Ebola Screen: No symptoms or risks identified at this time. Initial Sepsis Screen: Does the patient meet any 2 criteria? No. Patient's initial sepsis screen is negative. Does the patient have a suspected source of infection? No. Patient's initial sepsis screen is negative. Risk Assessment: Do you want to hurt yourself or someone else? Patient reports no desire to harm self or others. Onset of symptoms was April 13, 2025. 17:08 Method Of Arrival: Ambulatory hb 17:08 Acuity: DULCE 3 hb Historical: - Allergies: 17:09 apples; hb 17:09 Eggs; hb 17:09 Strawberries; hb 17:09 Wheat/glutens; hb - Home Meds: 17:13 aspirin 81 mg Oral chew 1 tab once daily [Active]; losartan 25 mg Oral tab 1 tab once hb daily [Active]; rosuvastatin 5 mg Oral tab 1 tab once daily [Active]; simvastatin 5 mg Oral tab 1 tab once daily [Active]; testosterone therapy [Active]; - PMHx: 17:09 Diverticulitis; Myocardial infarction; hb - PSHx: 17:09 colon resection; Hernia repair x 4; hb 17:13 Neck Fusion; hb Screenin:50 [facility] ED Fall Risk Assessment (Adult) History of falling in the last 3 months, iw including since admission No falls in past 3 months (0 pts) Confusion or Disorientation No (0 pts) Intoxicated or Sedated No (0 pts) Impaired Gait No (0 pts) Mobility Assist Device Used No (0 pt) Altered Elimination No (0 pt) Score/Fall Risk Level 0 - 2 = Low Risk Oriented to surroundings, Maintained a safe environment. Abuse screen: Denies threats or abuse. Denies injuries from another. Nutritional screening: No deficits noted. Tuberculosis screening: No symptoms or risk factors identified. Assessment: 18:15 General: Appears in no apparent distress. Behavior is calm, cooperative. Pain: iw Complains of pain in right lower quadrant and left lower quadrant Pain currently is 6 out of 10 on a pain scale. Neuro: Level of Consciousness is awake, alert, obeys commands, Oriented to person, place, time, situation, Moves all extremities. Full function. Cardiovascular: Patient's skin is warm and dry. Respiratory: Respiratory effort is even, unlabored, Respiratory pattern is regular, symmetrical. GI: Abdomen is non-distended, Abd is soft X 4 quads Reports lower abdominal pain. Derm: Skin is intact, is healthy with good turgor. 19:47 General: Appears in no apparent distress. comfortable, Behavior is calm, cooperative. al5 Pain: Denies pain. Neuro: Level of Consciousness is awake, alert, obeys commands, Oriented to person, place, time, situation. Cardiovascular: Capillary refill < 3 seconds Patient's skin is warm and dry. Respiratory: Airway is patent Respiratory effort is even, unlabored, Respiratory pattern is regular, symmetrical. GI: No signs and/or symptoms were reported involving the gastrointestinal system. : No signs and/or symptoms were reported regarding the genitourinary system. EENT: No signs and/or symptoms were reported regarding the EENT system. Derm: Skin is intact, is healthy with good turgor, Skin is pink, warm \\T\\ dry. normal. Musculoskeletal: Circulation, motion, and sensation intact. Capillary refill < 3 seconds, Range of motion: intact in all extremities. Vital Signs: 17:08 BP 137 / 105; Pulse 89; Resp 16; Temp 97.8; Pulse Ox 100% on R/A; Weight 82.55 kg; hb Height 5 ft. 10 in. ; Pain 6/10; 18:16 BP 146 / 106; Pulse 74; Resp 16; Pulse Ox 99% on R/A; Pain 6/10; iw 19:30 BP 149 / 104; Pulse 72; Resp 15; Pulse Ox 99% on R/A; al5 20:37 BP 129 / 93; Pulse 76; Resp 16; Pulse Ox 100% on R/A; al5 17:08 Body Mass Index 26.11 (82.55 kg, 177.8 cm) hb 17:08 Pain Scale: Adult hb 18:16 Pain Scale: Adult iw ED Course: 16:59 Patient arrived in ED. im 17:00 Bri Kellogg MD is Attending Physician. sp3 17:09 Triage completed. hb 17:10 Arm band placed on. hb 17:32 Karin Madsen, RN is Primary Nurse. iw 18:00 Initial lab(s) drawn, by me, sent to lab. Inserted saline lock: 22 gauge in left iw antecubital area, using aseptic technique. Blood collected. Flushed with 10 mL NS. 18:09 Abdomen In Process Unspecified. EDMS 18:25 US Abdomen Limited In Process Unspecified. EDMS 18:50 Patient has correct armband on for positive identification. Provided Education on: . iw Client placed on continuous cardiac and pulse oximetry monitoring. NIBP monitoring applied. Lights dimmed. 18:50 Group A Streptococcus Rapid Sent. iw 19:34 Attending Physician role handed off by Bri Kellogg MD sp4 19:34 Carlos Menendez MD is Attending Physician. sp4 20:38 No provider procedures requiring assistance completed. IV discontinued, intact, al5 bleeding controlled, No redness/swelling at site. Pressure dressing applied. Administered Medications: 18:34 Drug: NS 0.9% IV 1000 ml IV at 1 bolus Per protocol; to be given as a bolus over 60 iw minutes Route: IV; Rate: 1 bolus; Site: left antecubital; 20:38 Follow up: Response: No adverse reaction; IV Status: Completed infusion; IV Intake: al5 1000ml 18:35 Drug: TORadol - Ketorolac IVP 15 mg IVP once Route: IVP; Site: left antecubital; iw 20:39 Follow up: Response: No adverse reaction; Pain is decreased al5 Medication: 18:15 VIS not applicable for this client. iw Intake: 20:38 IV: 1000ml; Total: 1000ml. al5 Outcome: 20:29 Discharge ordered by . sp4 20:38 Discharged to home ambulatory, al5 20:38 Condition: good 20:38 Discharge instructions given to patient, Instructed on discharge instructions, follow up and referral plans. Demonstrated understanding of instructions, follow-up care, 20:38 Patient left the ED. al5 Signatures: Dispatcher [employer] [facility] Karin Madsen, BITA SUNSHINE Marcelina Briones RN RN hb Bri Kellogg MD MD sp3 Carlos Menendez MD MD sp4 [place] Amanda, RN RN al5 Corrections: (The following items were deleted from the chart) 17:14 17:13 PMHx: Myocardial infarction; "stress induced"; hb hb
--- NOTE | 2025-04-22 20:29 | EDPHYS ---
Physician Documentation [facility] Name: Valeri Benjamin Age: 50 yrs Sex: Male : 1975 Arrival Date: 04/22/2025 Time: 16:58 Bed 12 Private MD: ED Physician Carlos Menendez HPI: 04/22 17:51 This 50 yrs old Male presents to ER via Ambulatory with complaints of Abdominal Pain. sp3 17:51 50-year-old male with history of diverticulitis, status post bowel repair, distant CO, sp3 currently not on any medications presents to the ED with right sided abdominal pain both upper and lower quadrants. Symptoms have been going on for the last 2 to 3 days. Patient denies any fever, headache but does endorse sore throat. He also denies neck pain, chest pain, shortness of breath, back pain, flank pain, dysuria, urinary frequency, gross visualized hematuria, vomiting, diarrhea, melena, bright red blood per rectum, syncope, near syncope, rash, known sick contacts, travel history, or any other signs or symptoms on ROS at this time.. Historical: - Allergies: 17:09 apples; hb 17:09 Eggs; hb 17:09 Strawberries; hb 17:09 Wheat/glutens; hb - Home Meds: 17:13 aspirin 81 mg Oral chew 1 tab once daily [Active]; losartan 25 mg Oral tab 1 tab once hb daily [Active]; rosuvastatin 5 mg Oral tab 1 tab once daily [Active]; simvastatin 5 mg Oral tab 1 tab once daily [Active]; testosterone therapy [Active]; - PMHx: 17:09 Diverticulitis; Myocardial infarction; hb - PSHx: 17:09 colon resection; Hernia repair x 4; hb 17:13 Neck Fusion; hb ROS: 17:52 Constitutional: Negative for fever, chills, and weight loss, Eyes: Negative for injury, sp3 pain, redness, and discharge, ENT: Negative for injury, pain, and discharge, Neck: Negative for injury, pain, and swelling, Cardiovascular: Negative for chest pain, palpitations, and edema, Respiratory: Negative for shortness of breath, cough, wheezing, and pleuritic chest pain, Back: Negative for injury and pain, MS/Extremity: Negative for injury and deformity, Skin: Negative for injury, rash, and discoloration, Neuro: Negative for headache, weakness, numbness, tingling, and seizure, Psych: Negative for depression, anxiety, suicide ideation, homicidal ideation, and hallucinations, Allergy/Immunology: Negative for hives, rash, and allergies, Endocrine: Negative for neck swelling, polydipsia, polyuria, polyphagia, and marked weight changes, Hematologic/Lymphatic: Negative for swollen nodes, abnormal bleeding, and unusual bruising, 17:52 All other systems are negative, Exam: 17:52 Constitutional: This is a well developed, well nourished patient who is awake, alert, sp3 and in no acute distress. Head/Face: Normocephalic, atraumatic. Eyes: Pupils equal round and reactive to light, extra-ocular motions intact. Lids and lashes normal. Conjunctiva and sclera are non-icteric and not injected. Cornea within normal limits. Periorbital areas with no swelling, redness, or edema. ENT: Nares patent. No nasal discharge, no septal abnormalities noted. External auditory canals are clear. Oropharynx with no redness, swelling, or masses, exudates, or evidence of obstruction, uvula midline. Mucous membranes moist. Neck: Trachea midline, no thyromegaly or masses palpated, and no cervical lymphadenopathy. Supple, full range of motion without nuchal rigidity, or vertebral point tenderness. No Meningismus. Chest/axilla: Normal chest wall appearance and motion. Nontender with no deformity. No lesions are appreciated. Cardiovascular: Regular rate and rhythm with a normal S1 and S2. No gallops, murmurs, or rubs. Normal PMI, no JVD. No pulse deficits. Respiratory: Lungs have equal breath sounds bilaterally, clear to auscultation and percussion. No rales, rhonchi or wheezes noted. No increased work of breathing, no retractions or nasal flaring. Back: No spinal tenderness. No costovertebral tenderness. Full range of motion. Skin: Warm, dry with normal turgor. Normal color with no rashes, no lesions, and no evidence of cellulitis. MS/ Extremity: Pulses equal, no cyanosis. Neurovascular intact. Full, normal range of motion. Neuro: Awake and alert, GCS 15, oriented to person, place, time, and situation. Cranial nerves II-XII grossly intact. Motor strength 5/5 in all extremities. Sensory grossly intact. Cerebellar exam normal. Normal gait. Psych: Awake, alert, with orientation to person, place and time. Behavior, mood, and affect are within normal limits. 17:52 Abdomen/GI: Right-sided upper lower quadrant abdominal pain to palpation without peritoneal signs, rebound or guarding., Vital Signs: 17:08 BP 137 / 105; Pulse 89; Resp 16; Temp 97.8; Pulse Ox 100% on R/A; Weight 82.55 kg; hb Height 5 ft. 10 in. ; Pain 6/10; 18:16 BP 146 / 106; Pulse 74; Resp 16; Pulse Ox 99% on R/A; Pain 6/10; iw 19:30 BP 149 / 104; Pulse 72; Resp 15; Pulse Ox 99% on R/A; al5 20:37 BP 129 / 93; Pulse 76; Resp 16; Pulse Ox 100% on R/A; al5 17:08 Body Mass Index 26.11 (82.55 kg, 177.8 cm) hb 17:08 Pain Scale: Adult hb 18:16 Pain Scale: Adult iw MDM: 17:09 Medical Screening Exam initiated sp3 17:53 Data reviewed: vital signs, nurses notes, lab test result(s), radiologic studies. ED sp3 course: 50-year-old male with right-sided abdominal pain. Differential diagnosis includes biliary pathology including cholecystitis, cholelithiasis, choledocholithiasis, gastritis, pancreatitis, colitis, appendicitis, UTI/pyelonephritis spectrum, kidney stone/ureterolithiasis spectrum, functional abdominal pain, constipation, musculoskeletal pain, among others. Workup include CT scan of the abdomen pelvis, ultrasound right upper quadrant, general labs, UA and general supportive care. Patient declined pain medication at this time. Disposition pending workup and patient course.. 19:39 ED course: RADIOLOGYSERVICES REPORT Name: VALERI BENJAMIN Acct Number: [id number] sp4 :1975 Age:50 Sex:M Ord Phys: Bri Kellogg Unit Number: [id number] [facility]: Verito Kelloggh Emma DO Status: REG ER ER Exam Date: 04/22/25 EXAMINATION: CTAbdomen Pelvis W Contrast CLINICAL INDICATION: Male, 50 years old. FLANK PAIN TECHNIQUE: CT abdomen and pelvis was performed, after the administration of IV contrast, as per department protocol. Axial, sagittal and coronal reconstructions were obtained. One or more of the following dose reduction techniques were used: Automated exposure control, adjustment of the mA and kV according to patient size, and iterative reconstruction. Unless otherwise specified, incidental findings do not require dedicated imaging follow-up. COMPARISON: 12/01/2024. FINDINGS: LOWER CHEST: The visualized lung bases are clear. LIVER: Normal in size and contour. No focal lesion. BILIARYSYSTEM: No suspicious abnormalities. SPLEEN: Normal size. No focal lesion. PANCREAS: No mass, ductal dilation, or jono-pancreatic fluid. ADRENALS: Stable 2 cm left adrenal nodule. KIDNEYS: Normal size and contour. No hydronephrosis. URINARYBLADDER: Unremarkable. GASTROINTESTINAL TRACT: No evidence of free air, significant intra-abdominal free fluid, bowel obstruction or abscess. Mild distal colonic diverticulosis without evidence of acute diverticulitis. APPENDIX: Normal appendix. LYMPH NODES: No lymphadenopathy. MUSCULOSKELETAL: No acute or suspicious osseous abnormality. ADDITIONAL FINDINGS: Prostatomegaly. Small umbilical and supraumbilical hernias containing fat, largest measuring 1.4 cm IMPRESSION: No acute or concerning abnormalities seen in the abdomen or pelvis. Incidental findings as above. ED course: EXAMINATION: US Abdomen Exam Limited CLINICAL HISTORY: [facility] N RUQ;Abd pain Bed Name: 12 COMPARISON: None. TECHNIQUE: Limited upper abdominal grayscale and color flow sonographic images. FINDINGS: Gallbladder: Normal wall thickness. No pericholecystic fluid. No gallstones. Mild echogenicity along the wall, nonspecific and could relate to mild demineralization. Negative sonographic Dawn sign. Bile ducts: No intrahepatic or extrahepatic biliary dilatation. Common bile duct measures 2 mm. Liver: Visualized portions of the liver demonstrate normal echogenicity with no suspicious findings. Fluid: No ascites. IMPRESSION: No abnormalities on right upper quadrant ultrasound. . 04/22 17:11 Order name: CBC with Diff; Complete Time: 18:25 sp3 04/22 17:11 Order name: CMP; Complete Time: 19:01 sp3 04/22 17:11 Order name: Lipase; Complete Time: 19:01 sp3 04/22 17:11 Order name: UA Rfx Martínez Cult if indicated; Complete Time: 20:19 sp3 04/22 17:35 Order name: Group A Streptococcus Rapid; Complete Time: 19:35 sp3 04/22 19:06 Order name: Throat Culture EDMS 04/22 17:49 Order name: US Abdomen Limited; Complete Time: 19:35 sp3 04/22 18:02 Order name: Abdomen ; Complete Time: 19:41 EDMS 04/22 17:11 Order name: IV Saline Lock; Complete Time: 18:16 sp3 04/22 17:11 Order name: Labs collected and sent; Complete Time: 18:16 sp3 Administered Medications: 18:34 Drug: NS 0.9% IV 1000 ml IV at 1 bolus Per protocol; to be given as a bolus over 60 iw minutes Route: IV; Rate: 1 bolus; Site: left antecubital; 20:38 Follow up: Response: No adverse reaction; IV Status: Completed infusion; IV Intake: al5 1000ml 18:35 Drug: TORadol - Ketorolac IVP 15 mg IVP once Route: IVP; Site: left antecubital; iw 20:39 Follow up: Response: No adverse reaction; Pain is decreased al5 Disposition Summary: 04/22/25 20:29 Discharge Ordered Notes: Location: Home sp4 Problem: new sp4 Symptoms: have improved sp4 Condition: Stable sp4 Diagnosis - Abdominal pain, Generalized sp4 - Acute right lower quadrant abdominal pain sp4 Followup: sp4 - With: Private Physician - When: 7 - 10 days - Reason: Recheck today's complaints Discharge Instructions: - Discharge Summary Sheet sp4 - Abdominal Pain, Adult sp4 Forms: - Patient Portal Instructions sp4 Signatures: Dispatcher [employer] EDKarin Sandoval RN RN Marcelina Briones RN RN Bri Kellogg MD MD sp3 Carlos Menendez MD MD sp4 Dee Khan RN al5 Corrections: (The following items were deleted from the chart) 17:14 17:13 PMHx: Myocardial infarction; "stress induced"; hb hb 18:02 17:11 Abdomen Pelvis Wo Con+CT.RAD.BRZ ordered. EDMS EDMS
[2025-04-22 21:34] VITALS: TEMP 97.8
[2025-04-22 21:41] VITALS: BP 129/93; O2SAT 100
== END 2025-04-22 20:38 | disposition home or self-care (01) ==
LOC: ER 16:58
DX: R10.84 Generalized abdominal pain (principal); R10.31 Right lower quadrant pain
CPT/HCPCS: 96361; 87070; 85025; 36415; 81003; 83690; 80053; 74177; 76705; 96374; 99284; Q9967; J7030

== ENCOUNTER 2025-06-27 20:49 | Emergency (ER) | payer OTHER ==
[2025-06-27 22:48] LABS: Absolute Lymphocytes (CBC) 0.9 K/uL (0.7-4.9); Hematocrit 47.0 % (39.6-49.0); Hemoglobin 15.8 g/dL (13.6-17.9); MCH 29.7 pg (27.0-35.0); MCHC 33.6 g/dL (32.0-36.0); MCV 88.2 fL (80-100); MPV 6.6 fL (7.6-11.3); Nucleated RBC Absolute Count 0.0 (0-0); Nucleated Red Blood Cells % 0.2 % (0-0); RBC Red Blood Cell Count 5.33 M/uL (4.33-5.43); White Blood Count 11.50 thou/uL (4.3-10.9)
[2025-06-27] MEDS ORDERED: ONDANSETRON 4 MG/2 ML VIAL ONE (23:00)
[2025-06-27] MEDS ORDERED: FAMOTIDINE 20 MG/2 ML VIAL IV ONE (23:01)
[2025-06-27] MEDS ORDERED: NA CHLORIDE 0.9% 1,000 ML ONE (23:01)
[2025-06-27 23:08] LABS: PT Prothrombin Time 12.9 SECONDS (10-13.0); Protime INR 1.15
[2025-06-27 23:11] LABS: Sqamous Epithelial None Seen /HPF (None Seen); Urine Crystals Unidentified Few /HPF (None Seen); Urine Culture Reflex Order REFLEXED; Urine Microscopic Reflex YN ORDER UMIC; Urine WBC Clump Many /HPF (None Seen); Urine Yeast (Budding) Few /HPF (None Seen)
[2025-06-27 23:24] LABS: ALT/SGPT 38 U/L (16-61); AST/SGOT 15 U/L (15-37); Albumin 4.1 g/dL (3.4-5.0); Albumin/Globulin Ratio 0.9 (1.1-1.8); Alkaline Phosphatase 82 U/L (45-117); Anion Gap 8.5 mEq/L (5.0-15.0); BUN Blood Urea Nitrogen 25 mg/dL (7-18); Bilirubin Indirect, Calculated 0.6 mg/dL (0.2-0.8); Globulin 4.6 g/dL (2.3-3.5); Glucose Level 137 mg/dL (74-106); Lipase 41 U/L (13-75); Magnesium 2.3 mg/dL (1.6-2.4); Potassium 4.5 mEq/L (3.5-5.1)
[2025-06-27 23:25] LABS: Troponin High Sensitivity < 3.0 pg/mL (<58.9)
[2025-06-28] MEDS ORDERED: KETOROLAC 30 MG/ML INJ ONE (00:12)
[2025-06-28] MEDS ORDERED: METOCLOPRAMIDE 10 MG/2mL INJ ONE (00:12)
[2025-06-28] MEDS ORDERED: NA CHLORIDE 0.9% 1,000 ML ONE ×2 (00:13→03:04)
[2025-06-28] MEDS ORDERED: DIPHENHYDRAMINE 50 MG/ML VIAL ONE (00:13)
--- NOTE | 2025-06-28 01:44 | RAD REPORT ---
XAM DESCRIPTION: Chest Single View RadLex: XR CHEST 1 VIEW CLINICAL HISTORY: 50 years Male, diarrhea COMPARISON: 05/23/2023 FINDINGS: Single portable AP upright view of the chest. Buttons projecting over the mid and right upper chest p resumably from patient's clothing. Normal size of the cardiac silhouette. Linear basilar opacities likely representing atelectasis and/or scarring. No consolidation. No pleural effusion or pneumothora x. Partially visualized cervical spine fixation hardware. IMPRESSION: Linear basilar opacities likely representing atelectasis and/or scarring. No other acute radiographic abnormality. Electronically signed by: Erica Causey MD 06/28/2025 01:34 AM CDT RP Due to temporary technical issues with the PACS[employer] reporting system, reports are being viet d by the in-house radiologist without review as a courtesy to ensure prompt reporting the interpreting radiologist is fully responsible for the content of the report. Transcribed Date/Time: 06/28/2025 1:43 AM
--- NOTE | 2025-06-28 02:14 | RAD REPORT ---
EXAM DESCRIPTION: Abdomen Pelvis W Contrast RadLex: CT ABDOMEN PELVIS WITH IV CONTRAST CLINICAL HISTORY: 50 years Male; diarrhea; IV ONLY Bed Name: 17 TECHNIQUE: CT of the abdomen and pelvis [with] intravenous contrast. All CT scans at this facility use dose modulation, iterative reconstruction, and/or weight based dosi ng when appropriate to reduce radiation dose to as low as reasonably achievable. COMPARISON: None. FINDINGS: Lower thorax: Bibasilar atelectasis. Abdomen: Stomach: Within normal limits Liver: No focal lesions. No intrahepatic ductal distention. Gallbladder: Nondistended Pancreas: Within normal limits Spleen: Within normal limits Right kidney: No hydronephrosis. No focal lesion. Left kidney: No hydronephrosis. No focal lesion. Adrenal glands: Indeterminate 2 cm left adrenal lesion. Vascular structures: Mild atherosclerosis. Nodes: No lymphadenopathy by size criteria Pelvis: Small bowel: No significant distention. Fluid-filled contents. Appendix: Within normal limits Colon: No distention or acute pericolonic edema. Colonic diverticulosis. Fluid-filled contents. Peritoneum: No free intraperitoneal fluid or air. Bones: No acute bone findings. Bladder: Unremarkable. Reproductive organs: No acute findings. IMPRESSION: 1. Fluid-filled small and large bowel contents, can be seen in setting of diarrheal illness. 2. Colonic diverticulosis without diverticulitis. 3. Indeterminate 2 cm left adrenal lesion. Recommend outpatient adrenal protocol CT or MRI. Electronically signed by: Stanley Pearson MD 06/28/2025 01:51 AM CDT TYG Due to temporary technical issues with the PACS/[employer] reporting system, reports are being viet d by the in-house radiologist without review as a courtesy to ensure prompt reporting the interpreting radiologist is fully responsible for the content of the report. Transcribed Date/Time: 06/28/2025 2:14 AM
[2025-06-28] MEDS ORDERED: CEFTRIAXONE 1000 MG/VIAL ONE (03:04)
[2025-06-28] MEDS ORDERED: CIPROFLOXACIN HCL 500 MG TAB ONE (03:04)
--- NOTE | 2025-06-28 03:38 | ER ---
Nurse's Notes [facility] Name: Xiomara Haro Age: 50 yrs Sex: Male : 1975 Arrival Date: 06/27/2025 Time: 20:49 Bed 17 Private MD: Diagnosis: Diarrhea, unspecified;UTI/ Urinary tract infection, site not specified;Volume depletion, unspecified;Nausea Presentation: 06/27 20:54 Chief complaint: Patient states: heartburn, watery diarrhea and headache. Pain to head me1 810 "pounding". Coronavirus screen: Vaccine status: Patient reports receiving the 1st dose of the Covid vaccine. Ebola Screen: No symptoms or risks identified at this time. Initial Sepsis Screen: Does the patient meet any 2 criteria? HR > 90 bpm. Does the patient have a suspected source of infection? No. Patient's initial sepsis screen is negative. Risk Assessment: Do you want to hurt yourself or someone else? Patient reports no desire to harm self or others. Onset of symptoms was June 27, 2025 at 10:00. 20:54 Method Of Arrival: Ambulatory wv1 20:54 Acuity: DULCE 3 me1 Triage Assessment: 21:00 General: Appears in no apparent distress. ss12 21:00 General: Behavior is calm, cooperative, quiet. ss12 06/28 02:51 Pain: Complains of pain in abdominal region Pain currently is 5 out of 10 on a pain ss12 scale. Quality of pain is described as aching, dull. Historical: - Allergies: 06/27 20:57 apples; me1 20:57 Eggs; me1 20:57 Strawberries; me1 20:57 Wheat/glutens; me1 - Home Meds: 06/28 02:51 aspirin 81 mg Oral chew 1 tab once daily [Active]; losartan 25 mg Oral tab 1 tab once ss12 daily [Active]; rosuvastatin 5 mg Oral tab 1 tab once daily [Active]; simvastatin 5 mg Oral tab 1 tab once daily [Active]; testosterone therapy [Active]; - PMHx: 06/27 20:57 Diverticulitis; Hypercholesterolemia; me1 - PSHx: 20:57 colon resection; Hernia repair x 4; neck fusion; me1 - Immunization history:: Adult Immunizations up to date. - Infectious Disease History:: Denies. - Social history:: Smoking status: Patient denies any tobacco usage or history of. Screenin:00 [facility] ED Fall Risk Assessment (Adult) History of falling in the last 3 months, ss12 including since admission No falls in past 3 months (0 pts) Confusion or Disorientation No (0 pts) Intoxicated or Sedated No (0 pts) Impaired Gait No (0 pts) Mobility Assist Device Used No (0 pt) Altered Elimination No (0 pt) Score/Fall Risk Level 0 - 2 = Low Risk Oriented to surroundings, Maintained a safe environment, Educated pt \\T\\ family on fall prevention, incl call for assistance when getting out of bed, Assessed \\T\\ reinforced patient's understanding of fall precautions, Provided non-skid footwear. 21:00 Abuse screen: Denies threats or abuse. Denies injuries from another. Nutritional ss12 screening: No deficits noted. Tuberculosis screening: No symptoms or risk factors identified. Assessment: 21:00 General: Appears in no apparent distress. comfortable, Behavior is calm, cooperative, ss12 quiet. Pain: Complains of pain in abdomen Pain does not radiate. Pain currently is 5 out of 10 on a pain scale. Quality of pain is described as aching, Pain began suddenly. Neuro: No deficits noted. Cardiovascular: No deficits noted. Capillary refill < 3 seconds Patient's skin is warm and dry. Respiratory: No deficits noted. Airway is patent Respiratory effort is even, unlabored, Respiratory pattern is regular, symmetrical. GI: Reports lower abdominal pain, upper abdominal pain, cramping, diarrhea. : No deficits noted. Urine is cloudy. EENT: No deficits noted. No signs and/or symptoms were reported regarding the EENT system. Derm: No deficits noted. No signs and/or symptoms reported regarding the dermatologic system. Musculoskeletal: No deficits noted. No signs and/or symptoms reported regarding the musculoskeletal system. 22:00 Reassessment: Patient appears in no apparent distress at this time. Patient and/or ss12 family updated on plan of care and expected duration. Pain level reassessed. Patient is alert, oriented x 3, equal unlabored respirations, skin warm/dry/pink. 23:00 Reassessment: Patient appears in no apparent distress at this time. Patient and/or ss12 family updated on plan of care and expected duration. Pain level reassessed. Patient is alert, oriented x 3, equal unlabored respirations, skin warm/dry/pink. 06/28 00:15 Reassessment: Patient appears in no apparent distress at this time. Patient and/or ss12 family updated on plan of care and expected duration. Pain level reassessed. Patient is alert, oriented x 3, equal unlabored respirations, skin warm/dry/pink. 02:00 Reassessment: Patient appears in no apparent distress at this time. Patient and/or ss12 family updated on plan of care and expected duration. Pain level reassessed. Patient is alert, oriented x 3, equal unlabored respirations, skin warm/dry/pink. 03:21 Reassessment: Patient appears in no apparent distress at this time. Patient and/or ss12 family updated on plan of care and expected duration. Pain level reassessed. Patient is alert, oriented x 3, equal unlabored respirations, skin warm/dry/pink. Vital Signs: 06/27 20:54 BP 124 / 81; Pulse 131; Resp 18; Temp 98.5; Pulse Ox 100% ; Weight 83.91 kg; Height 5 me1 ft. 10 in. ; Pain 8/10; 22:15 BP 130 / 100; Pulse 115; Resp 18; Pulse Ox 97% on R/A; 12 23:15 BP 135 / 101; Pulse 112; Resp 18; Pulse Ox 98% on R/A; 12 06/28 00:00 BP 141 / 97; Pulse 104; Resp 16; Pulse Ox 100% on R/A; [facility] 00:45 BP 133 / 95; Pulse 104; Resp 16; Pulse Ox 100% on R/A; [facility] 01:30 BP 119 / 84; Pulse 104; Resp 16; Pulse Ox 97% ; 12 03:00 BP 120 / 89; Pulse 98; Resp 16; Pulse Ox 98% on R/A; 12 04:33 BP 129 / 86; Pulse 90; Resp 16; Temp 98.4; Pulse Ox 100% ; Pain 3/10; kt5 06/27 20:54 Body Mass Index 26.54 (83.91 kg, 177.8 cm) me1 06/27 20:54 Pain Scale: Adult me1 04:33 Pain Scale: Adult kt5 [place] Coma Score: 06/27 22:15 Eye Response: spontaneous(4). Motor Response: obeys commands(6). Verbal Response: ss12 oriented(5). Total: 15. ED Course: 20:51 Patient arrived in ED. al6 20:52 Naseem Stark PA-C is PHCP. cp 20:52 Juanpablo Atkins DO is Attending Physician. cp 20:57 Triage completed. me1 20:57 Arm band placed on Patient placed in an exam room. me1 21:00 Patient has correct armband on for positive identification. Provided Education on: plan ss12 of care. 22:10 Harika Shabazz, RN is Primary Nurse. ss12 22:43 Lipase Sent. ss12 22:43 UA Rfx Martínez Cult if indicated Sent. ss12 22:43 Basic Metabolic Panel Sent. ss12 22:43 CBC with Diff Sent. ss12 22:43 LFT's Sent. ss12 22:43 Magnesium Sent. ss12 22:43 PT-INR Sent. ss12 22:43 Troponin HS Sent. ss12 23:20 XRAY Chest (1 view) In Process Unspecified. EDMS 06/28 00:01 CT Abd/Pelvis - IV Contrast Only In Process Unspecified. EDMS 02:50 No provider procedures requiring assistance completed. ss12 04:34 IV discontinued, intact, bleeding controlled, No redness/swelling at site. Pressure ss12 dressing applied. Administered Medications: 06/27 23:00 Drug: NS 0.9% IV 1000 ml IV at 1000 ml once; to be given as a bolus over 60 minutes ss12 Route: IV; Rate: 1000 ml; Site: right antecubital; 06/28 00:10 Follow up: Response: No adverse reaction; IV Status: Completed infusion; IV Intake: ss12 1000ml 06/27 23:00 Drug: Ondansetron IVP 4 mg IVP once; over 2 minutes Route: IVP; Site: right antecubital;12 23:30 Follow up: Response: No adverse reaction; Pain is decreased 12 06/28 03:19 Follow up: Response: No adverse reaction 12 06/27 23:00 Drug: Famotidine IVP 20 mg IVP once; dilute with 10 mL 0.9% NaCl; give over 2 minutes ss12 Route: IVP; Site: right antecubital; 23:30 Follow up: Response: No adverse reaction [facility] 06/28 00:00 Drug: metoCLOPramide IVP 10 mg IVP once; over 1 to 2 minutes Route: IVP; Site: right ss12 antecubital; 00:30 Follow up: Response: No adverse reaction [facility] 00:00 Drug: diphenhydrAMINE IVP 25 mg IVP once Route: IVP; Site: right antecubital; 12 00:30 Follow up: Response: No adverse reaction [facility] 00:00 Drug: Ketorolac IVP 15 mg IVP once Route: IVP; Site: right antecubital; 12 00:30 Follow up: Response: No adverse reaction [facility] 00:00 Drug: NS 0.9% IV 1000 ml IV at 1 bolus Per protocol; to be given as a bolus over 60 12 minutes Route: IV; Rate: 1 bolus; Site: right antecubital; 01:00 Follow up: IV Status: Completed infusion; IV Intake: 1000ml [facility] 03:00 Drug: NS 0.9% IV 1000 ml IV at 1000 ml once; to be given as a bolus over 60 minutes [facility] Route: IV; Rate: 1000 ml; Site: right antecubital; 04:35 Follow up: IV Status: Completed infusion; IV Intake: 1000ml [facility] 03:00 Drug: Rocephin IV 1 grams IV at calculated rate once; Given slow IV push per pharmacy [facility] instructions Route: IV; Rate: calculated rate; Site: right antecubital; 03:20 Follow up: IV Status: Completed infusion; IV Intake: 10ml [facility] 03:00 Drug: Ciprofloxacin PO 500 mg PO once Route: PO; [facility] 03:20 Follow up: Response: No adverse reaction [facility] Medication: 02:49 VIS not applicable for this client. [facility] Intake: 00:10 IV: 1000ml; Total: 1000ml. 12 01:00 IV: 1000ml; Total: 2000ml. 12 03:20 IV: 10ml; Total: 2010ml. 12 04:35 IV: 1000ml; Total: 3010ml. [facility] Outcome: 03:38 Discharge ordered by . cp 04:34 Discharged to home ambulatory, [facility] 04:34 Condition: stable 04:34 Discharge instructions given to patient, family, Instructed on discharge instructions, follow up and referral plans. Demonstrated understanding of instructions, follow-up care, Prescriptions given X 3, 04:34 Patient left the ED. ss12 Signatures: Dispatcher [employer] EDMS Naseem Stark PA-C PA-C cp Eddleman, Michelle RN RN me1 Lois Gray al6 Harika Shabazz RN RN ss12 Lolis Castellon RN RN kt5 Corrections: (The following items were deleted from the chart) 06/27 20:59 20:57 PMHx: Myocardial infarction; me1 me1
--- NOTE | 2025-06-28 03:38 | EDPHYS ---
Physician Documentation [facility] Name: Xiomara Haro Age: 50 yrs Sex: Male : 1975 Arrival Date: 06/27/2025 Time: 20:49 Bed 17 Private MD: ED Physician Juanpablo Atkins HPI: 06/27 22:30 This 50 yrs old Male presents to ER via Ambulatory with complaints of food posioning. cp 22:30 The patient presents to the emergency department with diarrhea, that is continuous. cp 22:30 Onset: The symptoms/episode began/occurred this morning. Possible causes: unknown. cp Associated signs and symptoms: Pertinent positives: nausea, Pertinent negatives: fever, GI bleeding, vomiting. Severity of symptoms: in the emergency department the symptoms are unchanged despite home interventions. Historical: - Allergies: 20:57 apples; me1 20:57 Eggs; me1 20:57 Strawberries; me1 20:57 Wheat/glutens; me1 - Home Meds: 06/28 02:51 aspirin 81 mg Oral chew 1 tab once daily [Active]; losartan 25 mg Oral tab 1 tab once ss12 daily [Active]; rosuvastatin 5 mg Oral tab 1 tab once daily [Active]; simvastatin 5 mg Oral tab 1 tab once daily [Active]; testosterone therapy [Active]; - PMHx: 06/27 20:57 Diverticulitis; Hypercholesterolemia; me1 - PSHx: 20:57 colon resection; Hernia repair x 4; neck fusion; me1 - Immunization history:: Adult Immunizations up to date. - Infectious Disease History:: Denies. - Social history:: Smoking status: Patient denies any tobacco usage or history of. ROS: 22:35 Constitutional: Positive for poor PO intake, Negative for fever, cp 22:35 Eyes: Negative for injury, pain, redness, and discharge, cp 22:35 Respiratory: Negative for cough, shortness of breath, wheezing, 22:35 Abdomen/GI: Positive for nausea, diarrhea, abdominal cramps, Negative for vomiting, constipation, black/tarry stool, rectal bleeding, 22:35 Neuro: Positive for headache, Negative for altered mental status, cp 22:35 All other systems are negative, Exam: 22:35 Head/Face: Normocephalic, atraumatic. cp 22:35 Constitutional: The patient appears in no acute distress, alert, awake, non-toxic, well developed, well nourished, uncomfortable, 22:35 Eyes: Periorbital structures: appear normal, Conjunctiva: normal, no exudate, no injection, Sclera: no appreciated abnormality, Lids and lashes: appear normal, bilaterally, 22:35 ENT: External ear(s): are unremarkable, Nose: is normal, Mouth: Lips: moist, Oral mucosa: moist, Posterior pharynx: Airway: no evidence of obstruction, patent, 22:35 Chest/axilla: Inspection: normal, 22:35 Cardiovascular: Rate: tachycardic, Rhythm: regular, Edema: is not appreciated, JVD: is not appreciated, 22:35 Respiratory: the patient does not display signs of respiratory distress, Respirations: normal, no use of accessory muscles, no retractions, labored breathing, is not present, Breath sounds: are clear throughout, no decreased breath sounds, no stridor, no wheezing, 22:35 Abdomen/GI: Inspection: abdomen appears normal, Bowel sounds: active, all quadrants, Palpation: soft, in all quadrants, mild abdominal tenderness, in all quadrants, rebound tenderness, is not appreciated, involuntary guarding, is not appreciated, 22:35 Back: CVA tenderness, is absent, 22:35 Skin: cellulitis, is not appreciated, no rash present. 22:35 Neuro: Orientation: to person, place \T\ time. Mentation: able to follow commands, Motor: moves all fours, strength is normal, Sensation: is normal, 23:17 ECG was reviewed by the Attending Physician. cp Vital Signs: 20:54 BP 124 / 81; Pulse 131; Resp 18; Temp 98.5; Pulse Ox 100% ; Weight 83.91 kg; Height 5 me1 ft. 10 in. ; Pain 8/10; 22:15 BP 130 / 100; Pulse 115; Resp 18; Pulse Ox 97% on R/A; ss12 23:15 BP 135 / 101; Pulse 112; Resp 18; Pulse Ox 98% on R/A; ss12 06/28 00:00 BP 141 / 97; Pulse 104; Resp 16; Pulse Ox 100% on R/A; ss12 00:45 BP 133 / 95; Pulse 104; Resp 16; Pulse Ox 100% on R/A; ss12 01:30 BP 119 / 84; Pulse 104; Resp 16; Pulse Ox 97% ; ss12 03:00 BP 120 / 89; Pulse 98; Resp 16; Pulse Ox 98% on R/A; ss12 04:33 BP 129 / 86; Pulse 90; Resp 16; Temp 98.4; Pulse Ox 100% ; Pain 3/10; kt5 06/27 20:54 Body Mass Index 26.54 (83.91 kg, 177.8 cm) me1 06/27 20:54 Pain Scale: Adult me1 04:33 Pain Scale: Adult kt5 [place] Coma Score: 06/27 22:15 Eye Response: spontaneous(4). Motor Response: obeys commands(6). Verbal Response: ss12 oriented(5). Total: 15. MDM: 20:52 Medical Screening Exam initiated cp 06/28 03:35 Data reviewed: vital signs, nurses notes, lab test result(s), EKG, radiologic studies, cp CT scan, and as a result, I will discharge patient. 03:35 Differential diagnosis: gastritis, appendicitis, diverticulitis, viral gastroenteritis, cp gastroenteritis, colitis. Consideration of Admission/Observation Escalation of care including admission/observation considered. I considered the following discharge prescriptions or medication management in the emergency department Medications were administered in the Emergency Department. See MAR. Independent interpretation of the following test(s) in the Emergency Department EKG: See my EKG interpretation above X-Ray: My interpretation is chest image negative for infiltrates. Care significantly affected by the following chronic conditions: diverticulosis. Counseling: I had a detailed discussion with the patient and/or guardian regarding the historical points, exam findings, and any diagnostic results supporting the discharge/admit diagnosis, lab results, radiology results, to return to the emergency department if symptoms worsen or persist or if there are any questions or concerns that arise at home. Response to treatment: the patient's symptoms have markedly improved after treatment, and as a result, I will discharge patient. Special discussion: Based on the patient's Hx, exam, and Dx evaluation, there is no indication for emergent surgery or inpatient Tx. It is understood by the patient/guardian that if the Sx's persist or worsen they need to return immediately for re-evaluation. 06/27 22:26 Order name: Basic Metabolic Panel; Complete Time: 23:52 cp 06/27 23:52 Interpretation: Normal except: GLUC 137; BUN 25; GFR 75. cp 06/27 22:26 Order name: CBC with Diff; Complete Time: 23:52 cp 06/27 23:52 Interpretation: Normal except: WBC 11.50; MPV 6.6; HANSA% 86.5; LYM% 7.6; NEUT A 9.9. cp 06/27 22:26 Order name: LFT's; Complete Time: 23:52 cp 06/27 22:26 Order name: Magnesium; Complete Time: 23:52 cp 06/27 22:26 Order name: PT-INR; Complete Time: 23:52 cp 06/27 22:26 Order name: Troponin HS; Complete Time: 23:52 cp 06/27 22:26 Order name: UA Rfx Martínez Cult if indicated; Complete Time: 23:52 cp 06/27 22:26 Order name: Lipase; Complete Time: 23:52 cp 06/27 23:23 Order name: Urine Culture EDLA 06/27 22:26 Order name: XRAY Chest (1 view) cp 06/27 22:49 Order name: CT Abd/Pelvis - IV Contrast Only cp 06/27 22:26 Order name: EKG; Complete Time: 22:27 cp 06/27 22:26 Order name: Cardiac monitoring; Complete Time: 23:22 cp 06/27 22:26 Order name: EKG - Nurse/Tech; Complete Time: 23:22 cp 06/27 22:26 Order name: IV Saline Lock; Complete Time: 22:43 cp 06/27 22:26 Order name: Labs collected and sent; Complete Time: 22:43 cp 06/27 22:26 Order name: O2 Per Protocol; Complete Time: 22:43 cp 06/27 22:26 Order name: O2 Sat Monitoring; Complete Time: 22:43 cp 06/28 00:58 Order name: Vital Signs: please update; Complete Time: 02:59 cp 06/28 03:00 Order name: PO challenge; Complete Time: 03:14 cp EC/17 23:17 Rate is 115 beats/min. Rhythm is regular. GA interval is normal. QRS interval is cp normal. QT interval is normal. T waves are Inverted in leads aVR, V2. Interpreted by me. Reviewed by me. Administered Medications: 23:00 Drug: NS 0.9% IV 1000 ml IV at 1000 ml once; to be given as a bolus over 60 minutes [facility] Route: IV; Rate: 1000 ml; Site: right antecubital; 06/28 00:10 Follow up: Response: No adverse reaction; IV Status: Completed infusion; IV Intake: ss12 1000ml 06/27 23:00 Drug: Ondansetron IVP 4 mg IVP once; over 2 minutes Route: IVP; Site: right antecubital;[facility] 23:30 Follow up: Response: No adverse reaction; Pain is decreased [facility] 06/28 03:19 Follow up: Response: No adverse reaction [facility] 06/27 23:00 Drug: Famotidine IVP 20 mg IVP once; dilute with 10 mL 0.9% NaCl; give over 2 minutes [facility] Route: IVP; Site: right antecubital; 23:30 Follow up: Response: No adverse reaction [facility] 06/28 00:00 Drug: metoCLOPramide IVP 10 mg IVP once; over 1 to 2 minutes Route: IVP; Site: right 12 antecubital; 00:30 Follow up: Response: No adverse reaction [facility] 00:00 Drug: diphenhydrAMINE IVP 25 mg IVP once Route: IVP; Site: right antecubital; [facility] 00:30 Follow up: Response: No adverse reaction [facility] 00:00 Drug: Ketorolac IVP 15 mg IVP once Route: IVP; Site: right antecubital; [facility] 00:30 Follow up: Response: No adverse reaction [facility] 00:00 Drug: NS 0.9% IV 1000 ml IV at 1 bolus Per protocol; to be given as a bolus over 60 12 minutes Route: IV; Rate: 1 bolus; Site: right antecubital; 01:00 Follow up: IV Status: Completed infusion; IV Intake: 1000ml [facility] 03:00 Drug: NS 0.9% IV 1000 ml IV at 1000 ml once; to be given as a bolus over 60 minutes [facility] Route: IV; Rate: 1000 ml; Site: right antecubital; 04:35 Follow up: IV Status: Completed infusion; IV Intake: 1000ml [facility] 03:00 Drug: Rocephin IV 1 grams IV at calculated rate once; Given slow IV push per pharmacy [facility] instructions Route: IV; Rate: calculated rate; Site: right antecubital; 03:20 Follow up: IV Status: Completed infusion; IV Intake: 10ml ss12 03:00 Drug: Ciprofloxacin PO 500 mg PO once Route: PO; ss12 03:20 Follow up: Response: No adverse reaction ss12 Disposition: 06:04 Co-signature as Attending Physician, Juanpablo Atkins DO I reviewed the patient's care tt7 provided by the Advanced Practice Provider and agree with the diagnosis and treatment plan. Disposition Summary: 06/28/25 03:38 Discharge Ordered Notes: Location: Home cp Problem: new cp Symptoms: have improved cp Condition: Stable cp Diagnosis - Diarrhea, unspecified cp - UTI/ Urinary tract infection, site not specified cp - Volume depletion, unspecified cp - Nausea cp Followup: cp - With: Private Physician - When: 2 - 3 days - Reason: Recheck today's complaints Discharge Instructions: - Discharge Summary Sheet cp - Food Choices to Help Relieve Diarrhea, Adult cp - Dehydration, Adult cp - Diarrhea, Adult cp - Nausea, Adult cp - Urinary Tract Infection, Adult cp Forms: - Medication Reconciliation Form cp - Antibiotic Education cp - Prescription Opioid Use cp - Patient Portal Instructions cp - Leadership Thank You Letter cp Prescriptions: - Cipro 500 mg Oral Tablet - take 1 tablet ORAL route every 12 hours for 10 days; 20 tablet; Refills: 0, cp Product Selection Permitted - Zofran 4 mg Oral Tablet - take 1 tablet ORAL route every 12 hours As needed; 20 tablet; Refills: 0, cp Product Selection Permitted - Metronidazole 250 mg Oral Tablet - take 1 tablet ORAL route every 8 hours; 30 tablet; Refills: 0, Product cp Selection Permitted Signatures: Dispatcher [facility] EDLA Naseem Stark PA-C PA-C cp Eddleman, Michelle, RN RN me1 Harika Shabazz RN RN [facility] Juanpablo Atkins DO DO tt7 Corrections: (The following items were deleted from the chart) 06/27 20:59 20:57 PMHx: Myocardial infarction; me1 me1 22:27 22:27 BASIC METABOLIC PANEL+C.LAB.BRZ ordered. EDMS EDMS 22:27 22:27 CBC+H.LAB.BRZ ordered. EDMS EDMS 22:27 22:27 HEPATIC FUNCTION+C.LAB.BRZ ordered. EDMS EDMS 22:27 22:27 MAGNESIUM+C.LAB.BRZ ordered. EDMS EDMS 22:27 PROTIME (+INR)+COAG.LAB.BRZ ordered. EDMS EDMS 22: Troponin High Sensitivity+C.LAB.BRZ ordered. EDMS EDMS 22: UA Rfx Martínez Cult if indicated+U.LAB.BRZ ordered. EDMS EDMS 22: LIPASE+C.LAB.BRZ ordered. EDMS EDMS
[2025-06-28 12:10] VITALS: BP 129/86; TEMP 98.4; O2SAT 100
== END 2025-06-28 04:34 | disposition home or self-care (01) ==
LOC: ER 20:49
DX: R19.7 Diarrhea, unspecified (principal); N39.0 Urinary tract infection, site not specified; E86.9 Volume depletion, unspecified; R11.0 Nausea; Z79.82 Long term (current) use of aspirin
CPT/HCPCS: 96365; 96361; 93005; 87088; 85025; 81001; 87086; 80048; 36415; 83735; 85610; 80076; 84484; 83690; 74177; 71045; 96375; 99284; Q9967; J1885; J2765; J1200; J2405; J7030 ×3; J0696